=== PATIENT | male | born 1950 | race Caucasian/White ===

== ENCOUNTER 2018-06-11 20:44 | Inpatient (IN) | payer BC, MEDICARE ==
--- NOTE | 2018-06-11 21:31 | ED PDOC ---
HPI: General Adult Time Seen by Provider: 06/11/18 21:10 Chief Complaint (Nursing): Medical Clearance Chief Complaint (Provider): AMS History Per: Patient, EMS History/Exam Limitations: clinical condition Current Symptoms Are (Timing): Still Present Severity: Moderate Additional Complaint(s): 67yo male arrives via EMS after wellness check demonstrated unsuitable living conditions, with patient confused and unkempt. In ED patient notes dizziness, Denies falls, focal weakness or pain, denies etoh or drug abuse.. but otherwise poor historian. Per EMS multiple medication bottles around residence but not brought with patient. Patient denies overdose or ingestion. Past Medical History Reviewed: Historical Data, Nursing Documentation, Vital Signs, Unable To Obtain Vital Signs: Last Vital Signs Temp 97.9 F 06/11/18 20:48 Pulse 130 H 06/11/18 20:48 Resp 20 06/11/18 20:48 BP 122/88 06/11/18 20:48 Pulse Ox 96 06/11/18 20:48 - Family History Family History: States: Unknown Family Hx - Living Arrangements Living Arrangements: Alone - Allergies Allergies/Adverse Reactions: Allergies Allergy/AdvReac Type Severity Reaction Status Date / Time Unobtainable Allergy Verified 06/11/18 20:48 Review of Systems Review Of Systems: ROS cannot be obtained secondary to pt's inabilty to answer questions. Physical Exam - Reviewed Nursing Documentation Reviewed: Yes Vital Signs Reviewed: Yes - Physical Exam Appears: Positive for: Non-toxic (poor historian, speaks short sentences, delayed responses) Head Exam: Positive for: ATRAUMATIC, NORMAL INSPECTION, NORMOCEPHALIC Skin: Positive for: Normal Color, Warm, DRY Eye Exam: Positive for: EOMI, Normal appearance, PERRL ENT: Positive for: Other (+oral thrush) Neck: Positive for: Normal, Painless ROM Cardiovascular/Chest: Positive for: Regular Rate, Rhythm Respiratory: Positive for: CNT, Normal Breath Sounds Pulses-Radial (L): 2+ Pulses-Radial (R): 2+ Gastrointestinal/Abdominal: Positive for: Soft. Negative for: Tenderness Back: Positive for: Normal Inspection Extremity: Positive for: Normal ROM. Negative for: Tenderness, Deformity, Swelling Neurologic/Psych: Positive for: Alert, entertainment reporter II-XII (intact), Other (no dysarthria, speech fluent but confused, strength 5/5 symmetric). Negative for: Oriented, Aphasia, Facial Droop - Laboratory Results Result Diagrams: 06/13/18 10:42 06/13/18 10:42 - ECG ECG: Positive for: Interpreted By Me ECG Rhythm: Positive for: Sinus Tachycardia Rate: 106 O2 Sat by Pulse Oximetry: 96 Pulse Ox Interpretation: Normal Medical Decision Making Medical Decision Making: workup for AMS initiated in unkept patient who is poor historian. No prior visits in EMR. Denies family in area. CT brain, labs, IVF bolus. 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 VENTRICLES: There is generalized parenchymal atrophy noted as demonstrated by symmetrical dilatation of ventricles and sulci. ORBITS: The orbits are unremarkable. SINUSES AND MASTOIDS: The paranasal sinuses and mastoid air cells are clear. BONES: No fracture. SOFT TISSUES: Unremarkable. MISCELLANEOUS: No acute intracranial pathology. IMPRESSION: 1. There is generalized parenchymal atrophy noted as demonstrated by symmetrical dilatation of ventricles and sulci. 2. Chronic periventricular and subcortical microvascular disease is seen. 3. No acute intracranial pathology. 231 -- rapid HIV ordered given oral thrush --Blood reviewed revealing renal failure with hyperkalemia --Unclear if old, no priop labs to compare, patient poor historian, denies knowledge of prior kidney issues --Will admit to hospital for further workup. neprhology vice president of communications Dr Chay chacko, Dr Higgins covering awaiting call back. -- crisostomo ordered awaiting placement for r/o obstruction but no bladder abd distension or tenderness -- admit vice president of communications medicine Dr Glover +rapid HIV per lab verbal report Disposition - Clinical Impression Clinical Impression: Acute renal failure, HIV (human immunodeficiency virus infection) - Patient ED Disposition Is Patient to be Admitted: Yes Counseled Patient/Family Regarding: Studies Performed, Diagnosis - Disposition Disposition Time: 23:00 Condition: FAIR - Pt Status Changed To: Hospital Disposition Of: Inpatient - Admit Certification Admit to Inpatient:: After my assessment, the patient will require hospitalization for at least two midnights. This is because of the severity of symptoms shown, intensity of services needed, and/or the medical risk in this patient being treated as an outpatient. - POA Present On Arrival: None
[2018-06-11] MEDS ORDERED: Sodium Chloride 0.9% 1,000 ML IV STA ×2 (21:36→22:58)
[2018-06-11 22:13] LABS: BASO % 0.6 % (0.0-2.0); EOS % 0.2 % (0.0-4.0); HEMOGLOBIN 10.3 g/dL (12.0-18.0); LYMPH # 0.5 K/uL (1.0-4.3); LYMPH % 7.1 % (20.0-40.0); MEAN CELL VOLUME 81.2 fl (80.0-94.0); MEAN CORPUSCULAR HEMOGLOBIN 25.7 pg (27.0-31.0); MEAN CORPUSCULAR HGB CONC 31.7 g/dL (33.0-37.0); MEAN PLATELET VOLUME 9.9 fl (7.2-11.7); MONO # 0.6 K/uL (0.0-0.8); MONO % 8.8 % (0.0-10.0); NEUT % 83.3 % (50.0-75.0); PLATELET COUNT 274 K/uL (130-400); RED CELL DISTRIBUTION WIDTH 14.9 % (11.5-14.5); WHITE BLOOD COUNT 7.2 K/uL (4.8-10.8)
[2018-06-11 22:22] LABS: ALB/GLOB RATIO 0.9 (1.0-2.1); ALT/SGPT 30 U/L (21-72); AST/SGOT 41 U/L (17-59); BLOOD UREA NITROGEN 99 mg/dl (9-20); CALCIUM 10.6 mg/dL (8.4-10.2); GFR NON-AFRICAN AMERICAN 10
[2018-06-11 22:33] LABS: INR 1.1; PROTHROMBIN TIME 12.1 Seconds (9.8-13.1)
[2018-06-11 22:34] LABS: B-TYPE NATRIURETIC PEPTIDE 421 pg/ml (0-900)
[2018-06-11 22:36] LABS: PARTIAL THROMBOPLASTIN TIME 28.5 Seconds (25.6-37.1)
[2018-06-11] MEDS ORDERED: Dextrose 50% SYRINGE Inj (50 ml) IV PRN (22:54)
[2018-06-11] MEDS ORDERED: Dextrose 50% SYRINGE Inj (50 ml) IVP ONE (22:54)
[2018-06-11] MEDS ORDERED: Glucagon Recombinant 1 mg Inj IM PRN (22:54)
[2018-06-11] MEDS ORDERED: Calcium Gluconate 4.65 mEq/10 ml Inj IV ONE (22:54)
[2018-06-11] MEDS ORDERED: Insulin Regular 100 units/ml IVP ONE (22:54)
[2018-06-11] MEDS ORDERED: Sod Polystyrene Sulf 15 gm/60 ml Susp PO ONE (22:58)
[2018-06-11 23:21] LABS: LYMPHOCYTE 7 % (20-50); MONOCYTE 6 % (0-10); NEUTROPHIL 87 % (42-75); TOTAL CELLS COUNTED 100
[2018-06-11 23:22] LABS: ANISOCYTOSIS SLIGHT; HYPOCHROMIC SLIGHT; OVALOCYTES SLIGHT; PLATELET ESTIMATE NORMAL (NORMAL)
[2018-06-11] MEDS ORDERED: Dextrose 50% SYRINGE Inj (50 ml) ONE (23:23)
[2018-06-12 03:55] LABS: SQUAMOUS EPITHIAL 1 /hpf (0-5); URINE BILIRUBIN NEGATIVE (NEGATIVE); URINE BLOOD SMALL (NEGATIVE); URINE CLARITY SLIGHTY-CLOUDY (Clear); URINE COLOR YELLOW (YELLOW); URINE GLUCOSE (UA) NEG (NEGATIVE); URINE LEUKOCYTE ESTERASE NEG Leu/uL (Negative); URINE PROTEIN NEGATIVE (NEGATIVE); URINE UROBILINOGEN 0.2-1.0 mg/dL (0.2-1.0)
[2018-06-12 04:07] LABS: BARBITURATES, UR NEGATIVE (NEGATIVE); BENZODIAZEPINES, UR NEGATIVE (NEGATIVE); OPIATES, UR NEGATIVE (NEGATIVE); PHENCYCLIDINE, UR NEGATIVE (NEGATIVE)
[2018-06-12 06:56] LABS: HEMOGLOBIN 9.5 g/dL (12.0-18.0); MEAN CELL VOLUME 80.1 fl (80.0-94.0); MEAN CORPUSCULAR HEMOGLOBIN 25.8 pg (27.0-31.0); MEAN CORPUSCULAR HGB CONC 32.2 g/dL (33.0-37.0); RBC 3.69 Mil/uL (4.40-5.90); RED CELL DISTRIBUTION WIDTH 14.8 % (11.5-14.5); WHITE BLOOD COUNT 6.5 K/uL (4.8-10.8)
[2018-06-12 07:10] LABS: ALB/GLOB RATIO 0.9 (1.0-2.1); ALBUMIN 3.4 g/dL (3.5-5.0); CALCIUM 10.1 mg/dL (8.4-10.2)
--- NOTE | 2018-06-12 08:38 | RAD ---
Date of service: 06/11/2018 HISTORY: SOB COMPARISON: No prior. FINDINGS: LUNGS: No active pulmonary disease. PLEURA: No significant pleural effusion identified, no pneumothorax apparent. Bilateral skin folds identified in the periphery of the mid to inferior lung cede[place]. CARDIOVASCULAR: No aortic atherosclerotic calcification present. Normal cardiac size. No pulmonary vascular congestion. OSSEOUS STRUCTURES: No significant abnormalities. VISUALIZED UPPER ABDOMEN: Normal. OTHER FINDINGS: None. IMPRESSION: No acute cardiopulmonary disease appreciated.
--- NOTE | 2018-06-12 10:15 | CT ---
Date of service: 06/11/2018 PROCEDURE: CT HEAD WITHOUT CONTRAST. HISTORY: AMS COMPARISON: None available. TECHNIQUE: Axial computed tomography images were obtained through the head/brain without intravenous contrast. Radiation dose: Total exam DLP = 1503.47 mGy-cm. This CT exam was performed using one or more of the following dose reduction techniques: Automated exposure control, adjustment of the mA and/or kV according to patient size, and/or use of iterative reconstruction technique. FINDINGS: HEMORRHAGE: No intracranial hemorrhage. BRAIN: Almazan-white matter differentiation is preserved. There is no mass, mass effect or abnormal extra-axial fluid collection. There is no territorial infarction. The midline sagittal structures are normal. VENTRICLES: There is moderate age-related global parenchymal volume loss and proportionate enlargement of the ventricles and cortical sulci. CALVARIUM: There is no calvarial fracture or extracranial soft tissue swelling. PARANASAL SINUSES: There is mild polypoid mucosal thickening in the right posterior ethmoid air cell. The remaining included paranasal sinuses are clear. MASTOID AIR CELLS: Predominantly clear. OTHER FINDINGS: None. IMPRESSION: No acute intracranial abnormality. Moderate global parenchymal volume loss. A preliminary report was provided by [employer] [facility]
--- NOTE | 2018-06-12 10:37 | CP.PCM.CON ---
History of Present Illness - History of Present Illness History of Present Illness: This patient who is 67 years of age male I was called to see him for abnormal kidney function. Patient in bed refusing to cooperate is not given any history very little if any. I cannot get more information than what I got from the emergency room and as he came to the emergency room complaining of weakness dizziness but no fall and he was found to have abnormal kidney function we do not know what medication he has been taken and he was discovered that he has HIV positive now in the hospital. I do not know whether he has any previous chronic kidney disease or kidney disease or any other medical problem that we know of at at this point Review of Systems - Review of Systems Systems not reviewed;Unavailable: Altered Mental Status, Uncooperative - Constitutional Constitutional: Anorexia, Night Sweats. absent: Chills - EENT Eyes: absent: Exophthalmos Nose/Mouth/Throat: absent: Epistaxis - Cardiovascular Cardiovascular: absent: Acrocyanosis, Chest Pain, Dyspnea, Edema - Respiratory Respiratory: absent: Cough, Hemoptysis - Gastrointestinal Gastrointestinal: absent: Abdominal Pain, Coffee Ground Emesis - Genitourinary Genitourinary: Nocturia - Musculoskeletal Musculoskeletal: As Per HPI, Abnormal Gait, Muscle Weakness - Neurological Neurological: Confusion, Lack of Coordination. absent: Convulsions - Psychiatric Psychiatric: As Per HPI - Endocrine Endocrine: Fatigue - Hematologic/Lymphatic Hematologic: absent: Easy Bleeding Past Patient History - Past Social History Smoking Status: Never Smoked - HEMATOLOGICAL/ONCOLOGICAL Hx Blood Disorders: Yes - MUSCULOSKELETAL/RHEUMATOLOGICAL Hx Falls: No - PSYCHIATRIC Hx Substance Use: No Meds Allergies/Adverse Reactions: Allergies Allergy/AdvReac Type Severity Reaction Status Date / Time Unobtainable Allergy Verified 06/11/18 20:48 - Medications Medications: Current Medications Dextrose (Dextrose 50% Inj) 0 ml IV STAT PRN; Protocol PRN Reason: Hypoglycemia Protocol Dextrose (Glutose 15) 0 gm PO ONCE PRN; Protocol PRN Reason: Hypoglycemia Protocol Glucagon (Glucagen Diagnostic Kit) 0 mg IM STAT PRN; Protocol PRN Reason: Hypoglycemia Protocol Physical Exam - Constitutional Appears: No Acute Distress - Eye Exam Eye Exam: Conjunctival injection - ENT Exam ENT Exam: Mucous Membranes Dry - Respiratory Exam Respiratory Exam: NORMAL BREATHING PATTERN. absent: Chest Wall Tenderness, Rales, Rhonchi - Cardiovascular Exam Cardiovascular Exam: absent: Gallop, JVD, Rubs - GI/Abdominal Exam GI & Abdominal Exam: Normal Bowel Sounds. absent: Guarding - Extremities Exam Extremities exam: Negative for: calf tenderness - Back Exam Back exam: absent: CVA tenderness (L), CVA tenderness (R) - Neurological Exam Neurological exam: Altered - Psychiatric Exam Psychiatric exam: Flat Affect Results - Vital Signs Recent Vital Signs: Last Vital Signs Temp 98.4 F 06/12/18 08:01 Pulse 104 H 06/12/18 08:01 Resp 18 06/12/18 08:01 BP 96/57 L 06/12/18 08:01 Pulse Ox 93 L 06/12/18 08:01 - Labs Result Diagrams: 06/12/18 06:40 06/12/18 06:40 Labs: Laboratory Results - last 24 hr 06/11/18 06/11/18 06/11/18 21:32 22:01 22:01 WBC 7.2 RBC 4.00 L Hgb 10.3 L Hct 32.5 L MCV 81.2 MCH 25.7 L MCHC 31.7 L RDW 14.9 H Plt Count 274 MPV 9.9 Neut % (Auto) 83.3 H Lymph % (Auto) 7.1 L [place] % (Auto) 8.8 Eos % (Auto) 0.2 Baso % (Auto) 0.6 Neut # (Auto) 6.0 Lymph # (Auto) 0.5 L [place] # (Auto) 0.6 Eos # (Auto) 0.0 Baso # (Auto) 0.0 Neutrophils % (Manual) 87 H Lymphocytes % (Manual) 7 L Monocytes % (Manual) 6 Platelet Estimate Normal Hypochromasia (manual) Slight Anisocytosis (manual) Slight Ovalocytes Slight PT INR APTT Sodium 140 Potassium 6.0 H Chloride 101 Carbon Dioxide 17 L Anion Gap 28 H BUN 99 H Creatinine 5.7 H Est GFR ( Amer) 12 Est GFR (Non-Af Amer) 10 POC Glucose (mg/dL) 96 Random Glucose 120 H Calcium 10.6 H Phosphorus 7.9 H Magnesium 2.3 Total Bilirubin 0.8 AST 41 ALT 30 Alkaline Phosphatase 150 H Total Creatine Kinase 69 Troponin I 0.0190 NT-Pro-B Natriuret Pep 421 Total Protein 8.5 H Albumin 4.0 Globulin 4.5 H Albumin/Globulin Ratio 0.9 L Triglycerides Cholesterol LDL Cholesterol Direct HDL Cholesterol Thyroxine (T4) TSH 3rd Generation Urine Color Urine Clarity Urine pH Ur Specific [place] Urine Protein Urine Glucose (UA) Urine Ketones Urine Blood Urine Nitrate Urine Bilirubin Urine Urobilinogen Ur Leukocyte Esterase Urine RBC (Auto) Urine Microscopic WBC Ur Squamous Epith Cells Hyaline Casts Urine Opiates Screen Urine Methadone Screen Ur Barbiturates Screen Ur Phencyclidine Scrn Ur Amphetamines Screen U Benzodiazepines Scrn U Oth Cocaine Metabols U Cannabinoids Screen Alcohol, Quantitative < 10 HIV-1 Ab Rapid Screen 06/11/18 06/12/18 06/12/18 22:01 00:11 00:34 WBC RBC Hgb Hct MCV MCH MCHC RDW Plt Count MPV Neut % (Auto) Lymph % (Auto) [place] % (Auto) Eos % (Auto) Baso % (Auto) Neut # (Auto) Lymph # (Auto) [place] # (Auto) Eos # (Auto) Baso # (Auto) Neutrophils % (Manual) Lymphocytes % (Manual) Monocytes % (Manual) Platelet Estimate Hypochromasia (manual) Anisocytosis (manual) Ovalocytes PT 12.1 INR 1.1 APTT 28.5 Sodium Potassium Chloride Carbon Dioxide Anion Gap BUN Creatinine Est GFR ( Amer) Est GFR (Non-Af Amer) POC Glucose (mg/dL) 161 H Random Glucose Calcium Phosphorus Magnesium Total Bilirubin AST ALT Alkaline Phosphatase Total Creatine Kinase Troponin I NT-Pro-B Natriuret Pep Total Protein Albumin Globulin Albumin/Globulin Ratio Triglycerides Cholesterol LDL Cholesterol Direct HDL Cholesterol Thyroxine (T4) TSH 3rd Generation Urine Color Urine Clarity Urine pH Ur Specific [place] Urine Protein Urine Glucose (UA) Urine Ketones Urine Blood Urine Nitrate Urine Bilirubin Urine Urobilinogen Ur Leukocyte Esterase Urine RBC (Auto) Urine Microscopic WBC Ur Squamous Epith Cells Hyaline Casts Urine Opiates Screen Urine Methadone Screen Ur Barbiturates Screen Ur Phencyclidine Scrn Ur Amphetamines Screen U Benzodiazepines Scrn U Oth Cocaine Metabols U Cannabinoids Screen Alcohol, Quantitative HIV-1 Ab Rapid Screen Reactive H 06/12/18 06/12/18 06/12/18 03:41 03:41 05:31 WBC RBC Hgb Hct MCV MCH MCHC RDW Plt Count MPV Neut % (Auto) Lymph % (Auto) [place] % (Auto) Eos % (Auto) Baso % (Auto) Neut # (Auto) Lymph # (Auto) [place] # (Auto) Eos # (Auto) Baso # (Auto) Neutrophils % (Manual) Lymphocytes % (Manual) Monocytes % (Manual) Platelet Estimate Hypochromasia (manual) Anisocytosis (manual) Ovalocytes PT INR APTT Sodium Potassium Chloride Carbon Dioxide Anion Gap BUN Creatinine Est GFR ( Amer) Est GFR (Non-Af Amer) POC Glucose (mg/dL) 131 H Random Glucose Calcium Phosphorus Magnesium Total Bilirubin AST ALT Alkaline Phosphatase Total Creatine Kinase Troponin I NT-Pro-B Natriuret Pep Total Protein Albumin Globulin Albumin/Globulin Ratio Triglycerides Cholesterol LDL Cholesterol Direct HDL Cholesterol Thyroxine (T4) TSH 3rd Generation Urine Color Yellow Urine Clarity Slighty-cloudy Urine pH 5.0 Ur Specific [place] 1.013 Urine Protein Negative Urine Glucose (UA) Neg Urine Ketones Negative Urine Blood Small Urine Nitrate Negative Urine Bilirubin Negative Urine Urobilinogen 0.2-1.0 Ur Leukocyte Esterase Neg Urine RBC (Auto) 1 Urine Microscopic WBC 2 Ur Squamous Epith Cells 1 Hyaline Casts 11-20 H Urine Opiates Screen Negative Urine Methadone Screen Negative Ur Barbiturates Screen Negative Ur Phencyclidine Scrn Negative Ur Amphetamines Screen Negative U Benzodiazepines Scrn Negative U Oth Cocaine Metabols Negative U Cannabinoids Screen Negative Alcohol, Quantitative HIV-1 Ab Rapid Screen 06/12/18 06/12/18 06:40 06:40 WBC 6.5 RBC 3.69 L Hgb 9.5 L Hct 29.5 L MCV 80.1 MCH 25.8 L MCHC 32.2 L RDW 14.8 H Plt Count 255 MPV Neut % (Auto) Lymph % (Auto) [place] % (Auto) Eos % (Auto) Baso % (Auto) Neut # (Auto) Lymph # (Auto) [place] # (Auto) Eos # (Auto) Baso # (Auto) Neutrophils % (Manual) Lymphocytes % (Manual) Monocytes % (Manual) Platelet Estimate Hypochromasia (manual) Anisocytosis (manual) Ovalocytes PT INR APTT Sodium 140 Potassium 5.3 H Chloride 105 Carbon Dioxide 19 L Anion Gap 21 H BUN 96 H Creatinine 5.0 H Est GFR ( Amer) 14 Est GFR (Non-Af Amer) 12 POC Glucose (mg/dL) Random Glucose 123 H Calcium 10.1 Phosphorus 6.2 H Magnesium Total Bilirubin 0.7 AST 42 ALT 24 Alkaline Phosphatase 144 H Total Creatine Kinase Troponin I NT-Pro-B Natriuret Pep Total Protein 7.4 Albumin 3.4 L Globulin 4.0 H Albumin/Globulin Ratio 0.9 L Triglycerides 175 H Cholesterol 175 LDL Cholesterol Direct 78 HDL Cholesterol 31 Thyroxine (T4) 6.17 TSH 3rd Generation 0.48 Urine Color Urine Clarity Urine pH Ur Specific [place] Urine Protein Urine Glucose (UA) Urine Ketones Urine Blood Urine Nitrate Urine Bilirubin Urine Urobilinogen Ur Leukocyte Esterase Urine RBC (Auto) Urine Microscopic WBC Ur Squamous Epith Cells Hyaline Casts Urine Opiates Screen Urine Methadone Screen Ur Barbiturates Screen Ur Phencyclidine Scrn Ur Amphetamines Screen U Benzodiazepines Scrn U Oth Cocaine Metabols U Cannabinoids Screen Alcohol, Quantitative HIV-1 Ab Rapid Screen Assessment & Plan (1) Acute renal failure Assessment and Plan: Differential diagnosis at this point Acute kidney injury/acute renal failure etiology not clear HIV Patient appears to be malnourished failure to thrive Recommendation IV fluid Serum phosphorus Serum PTH Spot urine for protein to creatinine ratio Ultrasound of the kidney We need more information Patient need kidney biopsy Status: Acute (2) HIV (human immunodeficiency virus infection) Status: Acute
--- NOTE | 2018-06-12 12:34 | CARD ---
APPROVED REPORT Date of service: 06/11/2018 EKG Measurement Heart [id number] <Conclusion> Sinus tachycardia Otherwise normal ECG
[2018-06-12 12:42] LABS: IRON 13 ug/dL (49-181)
[2018-06-12] MEDS ORDERED: Sodium Chloride 0.9% 1,000 ML IV SCH ×2 (12:45→18:45)
[2018-06-12 12:52] LABS: % IRON SATURATION 6 % (20-55); TOTAL IRON BINDING CAPACITY 206 ug/dL (250-450)
--- NOTE | 2018-06-12 14:32 | CP.PCM.HP ---
History of Present Illness - History of Present Illness History of Present Illness: CC: AMS. 67 y/o M, brought to ER [facility], on , to be evaluated for AMS on DOA with no changes, associated to weakness/dizziness, unkempt, as pe EMS, found with unsuitable living, multiple medications bottles around residence but not brought with Pt. Worsening symptoms: Cachexia, not eating for days, on evaluation, found with abnormal kidney function., positive for HIV, nocturia. Aggravated factor: Poor historian, Unknown PMHx or home medications. Not in compliance with all his meds. No: Fever, chills, n/v/d, abdominal pain, fall, CP, palpitations, SOB, cough, etoh or drugs, recent travel out of [facility]. EKG: Sinus Tachycardia. Head CT: No acute intracranial abnormality. CXR: No acute cardiopulmonary disease. Present on Admission - Present on Admission Any Indicators Present on Admission: No Review of Systems - Review of Systems Systems not reviewed;Unavailable: Acuity of Condition, Altered Mental Status Past Patient History - Past Medical History & Family History Pertinent Family History: Unknown - Past Social History Smoking Status: Never Smoked Alcohol: None (Pt deied) Drugs: Denies (Pt denied.) Home Situation {Lives}: Alone - HEMATOLOGICAL/ONCOLOGICAL Hx Blood Disorders: Yes Hx Human Immunodeficiency Virus (HIV): Yes - MUSCULOSKELETAL/RHEUMATOLOGICAL Hx Falls: No - PSYCHIATRIC Hx Substance Use: No Meds Allergies/Adverse Reactions: Allergies Allergy/AdvReac Type Severity Reaction Status Date / Time Unobtainable Allergy Verified 06/11/18 20:48 Physical Exam - Constitutional Appears: Chronically Ill, Other (Anorexia) - Head Exam Head Exam: NORMAL INSPECTION - Eye Exam Eye Exam: Conjunctival injection - ENT Exam Additional comments: Oral thrush - Neck Exam Neck exam: Positive for: Normal Inspection - Respiratory Exam Respiratory Exam: NORMAL BREATHING PATTERN - Cardiovascular Exam Cardiovascular Exam: Tachycardia - GI/Abdominal Exam GI & Abdominal Exam: Normal Bowel Sounds, Soft - Extremities Exam Extremities exam: Positive for: normal inspection - Neurological Exam Neurological exam: CN II-XII Intact Additional comments: Ox1, awake, confused, forgetful. - Psychiatric Exam Psychiatric exam: Flat Affect - Skin Skin Exam: Warm Results - Vital Signs Recent Vital Signs: Last Vital Signs Temp 97.8 F 06/12/18 12:48 Pulse 122 H 06/12/18 12:48 Resp 18 06/12/18 12:48 BP 91/57 L 06/12/18 12:48 Pulse Ox 93 L 06/12/18 12:48 danie Blandon - Labs Result Diagrams: 06/12/18 06:40 06/12/18 06:40 Labs: Laboratory Results - last 24 hr 06/11/18 06/11/18 06/11/18 21:32 22:01 22:01 WBC 7.2 RBC 4.00 L Hgb 10.3 L Hct 32.5 L MCV 81.2 MCH 25.7 L MCHC 31.7 L RDW 14.9 H Plt Count 274 MPV 9.9 Neut % (Auto) 83.3 H Lymph % (Auto) 7.1 L [place] % (Auto) 8.8 Eos % (Auto) 0.2 Baso % (Auto) 0.6 Neut # (Auto) 6.0 Lymph # (Auto) 0.5 L [place] # (Auto) 0.6 Eos # (Auto) 0.0 Baso # (Auto) 0.0 Neutrophils % (Manual) 87 H Lymphocytes % (Manual) 7 L Monocytes % (Manual) 6 Platelet Estimate Normal Hypochromasia (manual) Slight Anisocytosis (manual) Slight Ovalocytes Slight PT INR APTT Sodium 140 Potassium 6.0 H Chloride 101 Carbon Dioxide 17 L Anion Gap 28 H BUN 99 H Creatinine 5.7 H Est GFR ( Amer) 12 Est GFR (Non-Af Amer) 10 POC Glucose (mg/dL) 96 Random Glucose 120 H Calcium 10.6 H Phosphorus 7.9 H Magnesium 2.3 Iron TIBC % Saturation Total Bilirubin 0.8 AST 41 ALT 30 Alkaline Phosphatase 150 H Total Creatine Kinase 69 Troponin I 0.0190 NT-Pro-B Natriuret Pep 421 Total Protein 8.5 H Albumin 4.0 Globulin 4.5 H Albumin/Globulin Ratio 0.9 L Triglycerides Cholesterol LDL Cholesterol Direct HDL Cholesterol Vitamin B12 Thyroxine (T4) TSH 3rd Generation Urine Color Urine Clarity Urine pH Ur Specific [place] Urine Protein Urine Glucose (UA) Urine Ketones Urine Blood Urine Nitrate Urine Bilirubin Urine Urobilinogen Ur Leukocyte Esterase Urine RBC (Auto) Urine Microscopic WBC Ur Squamous Epith Cells Hyaline Casts Urine Opiates Screen Urine Methadone Screen Ur Barbiturates Screen Ur Phencyclidine Scrn Ur Amphetamines Screen U Benzodiazepines Scrn U Oth Cocaine Metabols U Cannabinoids Screen Alcohol, Quantitative < 10 HIV-1 Ab Rapid Screen 06/11/18 06/12/18 06/12/18 22:01 00:11 00:34 WBC RBC Hgb Hct MCV MCH MCHC RDW Plt Count MPV Neut % (Auto) Lymph % (Auto) [place] % (Auto) Eos % (Auto) Baso % (Auto) Neut # (Auto) Lymph # (Auto) [place] # (Auto) Eos # (Auto) Baso # (Auto) Neutrophils % (Manual) Lymphocytes % (Manual) Monocytes % (Manual) Platelet Estimate Hypochromasia (manual) Anisocytosis (manual) Ovalocytes PT 12.1 INR 1.1 APTT 28.5 Sodium Potassium Chloride Carbon Dioxide Anion Gap BUN Creatinine Est GFR ( Amer) Est GFR (Non-Af Amer) POC Glucose (mg/dL) 161 H Random Glucose Calcium Phosphorus Magnesium Iron TIBC % Saturation Total Bilirubin AST ALT Alkaline Phosphatase Total Creatine Kinase Troponin I NT-Pro-B Natriuret Pep Total Protein Albumin Globulin Albumin/Globulin Ratio Triglycerides Cholesterol LDL Cholesterol Direct HDL Cholesterol Vitamin B12 Thyroxine (T4) TSH 3rd Generation Urine Color Urine Clarity Urine pH Ur Specific [place] Urine Protein Urine Glucose (UA) Urine Ketones Urine Blood Urine Nitrate Urine Bilirubin Urine Urobilinogen Ur Leukocyte Esterase Urine RBC (Auto) Urine Microscopic WBC Ur Squamous Epith Cells Hyaline Casts Urine Opiates Screen Urine Methadone Screen Ur Barbiturates Screen Ur Phencyclidine Scrn Ur Amphetamines Screen U Benzodiazepines Scrn U Oth Cocaine Metabols U Cannabinoids Screen Alcohol, Quantitative HIV-1 Ab Rapid Screen Reactive H 06/12/18 06/12/18 06/12/18 03:41 03:41 05:31 WBC RBC Hgb Hct MCV MCH MCHC RDW Plt Count MPV Neut % (Auto) Lymph % (Auto) [place] % (Auto) Eos % (Auto) Baso % (Auto) Neut # (Auto) Lymph # (Auto) [place] # (Auto) Eos # (Auto) Baso # (Auto) Neutrophils % (Manual) Lymphocytes % (Manual) Monocytes % (Manual) Platelet Estimate Hypochromasia (manual) Anisocytosis (manual) Ovalocytes PT INR APTT Sodium Potassium Chloride Carbon Dioxide Anion Gap BUN Creatinine Est GFR ( Amer) Est GFR (Non-Af Amer) POC Glucose (mg/dL) 131 H Random Glucose Calcium Phosphorus Magnesium Iron TIBC % Saturation Total Bilirubin AST ALT Alkaline Phosphatase Total Creatine Kinase Troponin I NT-Pro-B Natriuret Pep Total Protein Albumin Globulin Albumin/Globulin Ratio Triglycerides Cholesterol LDL Cholesterol Direct HDL Cholesterol Vitamin B12 Thyroxine (T4) TSH 3rd Generation Urine Color Yellow Urine Clarity Slighty-cloudy Urine pH 5.0 Ur Specific [place] 1.013 Urine Protein Negative Urine Glucose (UA) Neg Urine Ketones Negative Urine Blood Small Urine Nitrate Negative Urine Bilirubin Negative Urine Urobilinogen 0.2-1.0 Ur Leukocyte Esterase Neg Urine RBC (Auto) 1 Urine Microscopic WBC 2 Ur Squamous Epith Cells 1 Hyaline Casts 11-20 H Urine Opiates Screen Negative Urine Methadone Screen Negative Ur Barbiturates Screen Negative Ur Phencyclidine Scrn Negative Ur Amphetamines Screen Negative U Benzodiazepines Scrn Negative U Oth Cocaine Metabols Negative U Cannabinoids Screen Negative Alcohol, Quantitative HIV-1 Ab Rapid Screen 06/12/18 06/12/18 06/12/18 06:40 06:40 12:19 WBC 6.5 RBC 3.69 L Hgb 9.5 L Hct 29.5 L MCV 80.1 MCH 25.8 L MCHC 32.2 L RDW 14.8 H Plt Count 255 MPV Neut % (Auto) Lymph % (Auto) [place] % (Auto) Eos % (Auto) Baso % (Auto) Neut # (Auto) Lymph # (Auto) [place] # (Auto) Eos # (Auto) Baso # (Auto) Neutrophils % (Manual) Lymphocytes % (Manual) Monocytes % (Manual) Platelet Estimate Hypochromasia (manual) Anisocytosis (manual) Ovalocytes PT INR APTT Sodium 140 Potassium 5.3 H Chloride 105 Carbon Dioxide 19 L Anion Gap 21 H BUN 96 H Creatinine 5.0 H Est GFR ( Amer) 14 Est GFR (Non-Af Amer) 12 POC Glucose (mg/dL) Random Glucose 123 H Calcium 10.1 Phosphorus 6.2 H Magnesium Iron 13 L TIBC 206 L % Saturation 6 L Total Bilirubin 0.7 AST 42 ALT 24 Alkaline Phosphatase 144 H Total Creatine Kinase Troponin I NT-Pro-B Natriuret Pep Total Protein 7.4 Albumin 3.4 L Globulin 4.0 H Albumin/Globulin Ratio 0.9 L Triglycerides 175 H Cholesterol 175 LDL Cholesterol Direct 78 HDL Cholesterol 31 Vitamin B12 Thyroxine (T4) 6.17 TSH 3rd Generation 0.48 Urine Color Urine Clarity Urine pH Ur Specific [place] Urine Protein Urine Glucose (UA) Urine Ketones Urine Blood Urine Nitrate Urine Bilirubin Urine Urobilinogen Ur Leukocyte Esterase Urine RBC (Auto) Urine Microscopic WBC Ur Squamous Epith Cells Hyaline Casts Urine Opiates Screen Urine Methadone Screen Ur Barbiturates Screen Ur Phencyclidine Scrn Ur Amphetamines Screen U Benzodiazepines Scrn U Oth Cocaine Metabols U Cannabinoids Screen Alcohol, Quantitative HIV-1 Ab Rapid Screen 06/12/18 12:19 WBC RBC Hgb Hct MCV MCH MCHC RDW Plt Count MPV Neut % (Auto) Lymph % (Auto) [place] % (Auto) Eos % (Auto) Baso % (Auto) Neut # (Auto) Lymph # (Auto) [place] # (Auto) Eos # (Auto) Baso # (Auto) Neutrophils % (Manual) Lymphocytes % (Manual) Monocytes % (Manual) Platelet Estimate Hypochromasia (manual) Anisocytosis (manual) Ovalocytes PT INR APTT Sodium Potassium Chloride Carbon Dioxide Anion Gap BUN Creatinine Est GFR ( Amer) Est GFR (Non-Af Amer) POC Glucose (mg/dL) Random Glucose Calcium Phosphorus Magnesium Iron TIBC % Saturation Total Bilirubin AST ALT Alkaline Phosphatase Total Creatine Kinase Troponin I NT-Pro-B Natriuret Pep Total Protein Albumin Globulin Albumin/Globulin Ratio Triglycerides Cholesterol LDL Cholesterol Direct HDL Cholesterol Vitamin B12 > 1000 H Thyroxine (T4) TSH 3rd Generation Urine Color Urine Clarity Urine pH Ur Specific [place] Urine Protein Urine Glucose (UA) Urine Ketones Urine Blood Urine Nitrate Urine Bilirubin Urine Urobilinogen Ur Leukocyte Esterase Urine RBC (Auto) Urine Microscopic WBC Ur Squamous Epith Cells Hyaline Casts Urine Opiates Screen Urine Methadone Screen Ur Barbiturates Screen Ur Phencyclidine Scrn Ur Amphetamines Screen U Benzodiazepines Scrn U Oth Cocaine Metabols U Cannabinoids Screen Alcohol, Quantitative HIV-1 Ab Rapid Screen reviewed J.P. - EKG Data EKG comments: reviewed J.P. - Imaging and Cardiology Chest x-ray Status: Report reviewed by me (Barber) CT scan - head Status: Report reviewed by me (Barber) Assessment & Plan (1) Altered mental status Status: Acute Priority: High (2) HIV (human immunodeficiency virus infection) Status: Acute Priority: High (3) Acute renal failure Status: Acute Priority: High (4) Diabetes mellitus Status: Acute Priority: High - Assessment and Plan (Free Text) Plan: Head CT no Acute intracraneal abnormalities, mod volume loss, F/U Echo, Brain MRI, Renal U-S, Blood, Stool and U C-S, Occult blood stool, Ova & parasite,Cd4, viral load, continue dextrose, Glucagon, Lovenox, Morphine, Acyclovir and rest of Tx, Nephrology consult appreciated, f/u ID and Neurology consult. - Date & Time Date: 06/12/18 Time: 11:30
[2018-06-12] MEDS: Morphine 4 MG/ML VIAL IVP PRN (15:38)
[2018-06-12] MEDS: Enoxaparin 30 mg Syringe SC SCH (15:38)
[2018-06-12] MEDS: Acyclovir 500 MG in Sodium Chloride 0.9% 100 ML IVPB SCH (15:38)
[2018-06-12] MEDS: Pantoprazole 40 mg EC Tab PO SCH (15:38)
[2018-06-12] MEDS: Sodium Chloride 0.9% 1,000 ML IV SCH (19:00)
--- NOTE | 2018-06-12 20:37 | CARD ---
APPROVED REPORT Date of service: 06/12/2018 EXAM: Two-dimensional and M-mode echocardiogram with Doppler and color Doppler. Other Information Quality : AverageRhythm : Tachycardia Technically limited study due to Poor parasternal window INDICATION Abnormal EKG/Arrhythmia 2D DIMENSIONS IVSd0.67 (0.7-1.1cm)LVDd3.14 (3.9-5.9cm) LVOT Diameter1.65 (1.8-2.4cm)PWd0.78 (0.7-1.1cm) IVSs0.99 (0.8-1.2cm)LVDs2.13 (2.5-4.0cm) FS (%) 32.1 %PWs0.87 (0.8-1.2cm) M-Mode DIMENSIONS Left Atrium (MM)3.86 (2.5-4.0cm)IVSd1.30 (0.7-1.1cm) Aortic Root2.95 (2.2-3.7cm)LVDd2.90 (4.0-5.6cm) Aortic Cusp Exc.1.57 (1.5-2.0cm)PWd1.08 (0.7-1.1cm) IVSs1.30 cmFS (%) 38 % LVDs1.79 (2.0-3.8cm)PWs1.46 cm Aortic Valve AoV Peak Cedttroh238.7cm/sAoV VTI11.0cmAO Peak GR.4mmHg LVOT Peak Socwbfeg69.1cm/sLVOT VTI11.62cmAO Mean GR.2mmHg JOSE (VMAX)1.73ee2ENP (VTI)1.43cm2 Mitral Valve MV E Lyeqpgsg20.3cm/sMV DECEL [id number] A Irgjltwc67.0cm/s MV BMT89qbD/A ratio0.8MVA (PHT)2.26cm2 TDI Lateral E' Peak V11.05cm/sMedial E' Peak V7.74cm/sE/Lateral E'4.6 E/Medial E'6.5 LEFT VENTRICLE The left ventricle is normal size. There is normal left ventricular wall thickness. The left ventricular systolic function is normal. The estimated ejection fraction is 55-60% No regional wall motion abnormalities noted.. Transmitral Doppler flow pattern is Grade I-abnormal relaxation pattern. No left ventricle thrombus noted on this study. There is no ventricular septal defect visualized. There is no left ventricular aneurysm. There is no mass noted in the left ventricle. RIGHT VENTRICLE The right ventricle is normal size. There is possible mild right ventricular wall hypertrophy The right ventricular systolic function is normal. ATRIA The left atrium is borderline dilated. The right atrium size is normal. The interatrial septum is intact with no evidence for an atrial septal defect. AORTIC VALVE The aortic valve is normal in structure. No aortic regurgitation is present. There is no aortic valvular stenosis. There is no aortic valvular vegetation. MITRAL VALVE The mitral valve is normal in structure. There is no evidence of mitral valve prolapse. There is no mitral valve stenosis. There is trace mitral valve regurgitation noted. TRICUSPID VALVE The tricuspid valve is normal in structure. There is no tricuspid valve regurgitation noted. There is no tricuspid valve prolapse or vegetation. There is no tricuspid valve stenosis. PULMONIC VALVE The pulmonary valve is normal in structure. There is no pulmonic valvular regurgitation. There is no pulmonic valvular stenosis. GREAT VESSELS The aortic root is normal in size. The ascending aorta is normal in size. The pulmonary artery is normal. The IVC is normal in size and collapses >50% with inspiration. PERICARDIAL EFFUSION There is no pericardial effusion. There is no pleural effusion. <Conclusion> The estimated ejection fraction is 55-60% Transmitral Doppler flow pattern is Grade I-abnormal relaxation pattern. The left atrium is borderline dilated. There is trace mitral valve regurgitation noted. There is no tricuspid valve regurgitation noted.
--- NOTE | 2018-06-12 22:09 | PCM.RRT ---
WORLD HISTORY TEACHER Nurse Assessment - Situation Location: [address] [place] [address] Room Number: [id number] WORLD HISTORY TEACHER Reason for Call: Hypotension WORLD HISTORY TEACHER Called By: RN - IV IV Inserted during WORLD HISTORY TEACHER?: No - Respiratory Oxygen Delivery Method: Nasal Cannula Received Nebulizer Treatments: No Was the Patient Ventilated with Bag/Mask 100% O2?: No Secretions Suctioned?: No Was the Patient Intubated?: No Was the Patient Placed on a Ventilator?: No - Medication Medications Administered During WORLD HISTORY TEACHER: NS 1L IV x1 - Diagnostic Test Ordered EKG: No Chest X-Ray: No CT Scan: No CPR started during WORLD HISTORY TEACHER?: No - Vital Signs Vital Signs: Rapid Response Vital Sign Blood Pressure 84/56 Pulse Rate 88 Respiratory Rate 20 Oxygen Saturation 95 - Time WORLD HISTORY TEACHER Ended Time WORLD HISTORY TEACHER Ended: 18:53 - Vital Signs at end of WORLD HISTORY TEACHER Vital Signs at end of WORLD HISTORY TEACHER: Rapid Response End Vital Sign Blood Pressure 96/59 Pulse Rate 84 Respiratory Rate 18 - Recommendations WORLD HISTORY TEACHER Level of Care Recommendations: Remain in current setting I.Reason for WORLD HISTORY TEACHER - A) Acute Change in Patient: (Select all that apply): Staff member or family is worried about patient Subjective: Time of WORLD HISTORY TEACHER: 6:31 pm Time of arrival: 6:32pm WORLD HISTORY TEACHER called by RN Reason for WORLD HISTORY TEACHER: nurse concerned about pt, hypotension Initial WORLD HISTORY TEACHER Vitals: Blood Pressure 84/56 Pulse Rate 88 Respiratory Rate 20 Oxygen Saturation 95 WORLD HISTORY TEACHER was called by nurse for hypotensive episode (BP 72/44) for Toya Henry, a 67-year-old male with PMH of HIV BIBA for AMS on day 1 of admission. Pt is a poor historian however he remained awake and responsive throughout WORLD HISTORY TEACHER. Denied any symptoms, repeatedly stated he "felt fine." He was given IVF; NS bolus and maintenance at 150 mls/hour. BP improved 95/66. All chart data reviewed - CT shows diffuse atrophy, chronic. CXR unremarkable. BUN/Cr 96/5.0. Potassium 5.3. Vital history indicated BP had been low for majority of admission and was not an acute change. PE: Gen: resting in bed in no acute distress Neuro: Awake, alert, responsive yet confused CV: RRR Resp: No resp distress Ext: no edema, no extremity tenderness to palpation End WORLD HISTORY TEACHER vitals: Blood Pressure 96/59 Pulse Rate 84 Respiratory Rate 18 WORLD HISTORY TEACHER Team: Dr Yin, Dr Dalton, Dr Land - Neurological Status (Select all that apply): Confused - Constitutional Appears: No Acute Distress, Older Than Stated Age, Cachectic - Head Head Exam: NORMAL INSPECTION - Respiratory Exam Respiratory Exam: absent: Respiratory Distress - Cardiovascular Exam Cardiovascular Exam: +S1, +S2 - GI/Abdominal Exam GI & Abdominal Exam: Soft. absent: Tenderness - Neurological Exam Neurological Exam: Alert, Altered, Awake - Extremities Exam Extremities Exam: Normal Inspection
--- NOTE | 2018-06-13 00:04 | CP.PCM.CON ---
History of Present Illness - History of Present Illness History of Present Illness: Neurology consult called by Dr. Glover . Mr. Pittman is a 67 yr old male with HIV of unknown duration, who is admitted for evaluation of change in mental status. Chart reviewed and the ER stated that he was dizzy, unkempt, with no history of urinary incontinence, who was not eating for days. In the ER, he was found to have oral thrush and was found to have HIV positive, and renal dysfunction. It is unknown what his baseline is, and he has not had any seizures. ROS: not obtainable due to mental status, and patients inability to communicate. No: Fever, chills, n/v/d, abdominal pain, fall, CP, palpitations, SOB, cough, etoh or drugs, recent travel out of [facility]. EKG: Sinus Tachycardia. Head CT: No acute intracranial abnormality. CXR: No acute cardiopulmonary disease. ON exam: AAOX1. PERRL. CN 2-12 normal. Motor : strength 5/5 ul and ll bl. Sensory: not accurate Gait not tested. MMS: tangential but can name and repeat, and follow commands. He cannot do calcluations, cannot recall 3 items after one minute, cannot draw pentagons. Past Patient History - Past Social History Smoking Status: Never Smoked Alcohol: None (Pt deied) Drugs: Denies (Pt denied.) Home Situation {Lives}: Alone - HEMATOLOGICAL/ONCOLOGICAL Hx Blood Disorders: Yes Hx Human Immunodeficiency Virus (HIV): Yes - MUSCULOSKELETAL/RHEUMATOLOGICAL Hx Falls: No - PSYCHIATRIC Hx Substance Use: No Meds Allergies/Adverse Reactions: Allergies Allergy/AdvReac Type Severity Reaction Status Date / Time Unobtainable Allergy Verified 06/11/18 20:48 - Medications Medications: Current Medications Dextrose (Dextrose 50% Inj) 0 ml IV STAT PRN; Protocol PRN Reason: Hypoglycemia Protocol Dextrose (Glutose 15) 0 gm PO ONCE PRN; Protocol PRN Reason: Hypoglycemia Protocol Enoxaparin Sodium (Lovenox) 30 mg SC DAILY [facility]; Protocol Last Admin: 06/12/18 15:38 Dose: Not Given Glucagon (Glucagen Diagnostic Kit) 0 mg IM STAT PRN; Protocol PRN Reason: Hypoglycemia Protocol Dextrose/Sodium Chloride (Dextrose 5%-0.9% Ns 500 Ml) 1,000 mls @ 100 mls/hr IV .Q10H [facility] Stop: 06/13/18 14:44 Last Admin: 06/12/18 17:00 Dose: Not Given Acyclovir 500 mg/ Sodium (Chloride) 100 mls @ 100 mls/hr IVPB DAILY [facility]; Protocol Last Admin: 06/12/18 15:38 Dose: Not Given Sodium Chloride (Sodium Chloride 0.9%) 1,000 mls @ 999 mls/hr IV .Q1H1M [facility] Stop: 06/13/18 18:46 Last Admin: 06/12/18 18:50 Dose: Not Given Sodium Chloride (Sodium Chloride 0.9%) 1,000 mls @ 150 mls/hr IV .Q6H40M [facility] Stop: 06/13/18 18:47 Morphine Sulfate (Morphine) 2 mg IVP Q6 PRN PRN Reason: Pain, moderate (4-7) Last Admin: 06/12/18 15:38 Dose: 2 mg Pantoprazole Sodium (Protonix Ec Tab) 40 mg PO DAILY [facility] Last Admin: 06/12/18 15:38 Dose: Not Given Sevelamer HCl (Renagel) 1,600 mg PO TID [facility] Last Admin: 06/12/18 17:30 Dose: Not Given Results - Vital Signs Recent Vital Signs: Last Vital Signs Temp 97.8 F 06/12/18 20:17 Pulse 82 06/12/18 20:17 Resp 16 06/12/18 20:17 BP 90/56 L 06/12/18 20:17 Pulse Ox 98 06/12/18 20:17 - Labs Result Diagrams: 06/13/18 10:42 06/13/18 10:42 Labs: Laboratory Results - last 24 hr 06/12/18 06/12/18 06/12/18 00:11 00:34 03:41 WBC RBC Hgb Hct MCV MCH MCHC RDW Plt Count Sodium Potassium Chloride Carbon Dioxide Anion Gap BUN Creatinine Est GFR ( Amer) Est GFR (Non-Af Amer) POC Glucose (mg/dL) 161 H Random Glucose Calcium Phosphorus Iron TIBC % Saturation Ferritin Total Bilirubin AST ALT Alkaline Phosphatase Ammonia Total Protein Albumin Globulin Albumin/Globulin Ratio Triglycerides Cholesterol LDL Cholesterol Direct HDL Cholesterol Vitamin B12 Thyroxine (T4) TSH 3rd Generation Urine Color Urine Clarity Urine pH Ur Specific [place] Urine Protein Urine Glucose (UA) Urine Ketones Urine Blood Urine Nitrate Urine Bilirubin Urine Urobilinogen Ur Leukocyte Esterase Urine RBC (Auto) Urine Microscopic WBC Ur Squamous Epith Cells Hyaline Casts Urine Opiates Screen Negative Urine Methadone Screen Negative Ur Barbiturates Screen Negative Ur Phencyclidine Scrn Negative Ur Amphetamines Screen Negative U Benzodiazepines Scrn Negative U Oth Cocaine Metabols Negative U Cannabinoids Screen Negative C. difficile Ag & Toxin HIV-1 Ab Rapid Screen Reactive H 06/12/18 06/12/18 06/12/18 03:41 05:31 06:40 WBC 6.5 RBC 3.69 L Hgb 9.5 L Hct 29.5 L MCV 80.1 MCH 25.8 L MCHC 32.2 L RDW 14.8 H Plt Count 255 Sodium Potassium Chloride Carbon Dioxide Anion Gap BUN Creatinine Est GFR ( Amer) Est GFR (Non-Af Amer) POC Glucose (mg/dL) 131 H Random Glucose Calcium Phosphorus Iron TIBC % Saturation Ferritin Total Bilirubin AST ALT Alkaline Phosphatase Ammonia Total Protein Albumin Globulin Albumin/Globulin Ratio Triglycerides Cholesterol LDL Cholesterol Direct HDL Cholesterol Vitamin B12 Thyroxine (T4) TSH 3rd Generation Urine Color Yellow Urine Clarity Slighty-cloudy Urine pH 5.0 Ur Specific [place] 1.013 Urine Protein Negative Urine Glucose (UA) Neg Urine Ketones Negative Urine Blood Small Urine Nitrate Negative Urine Bilirubin Negative Urine Urobilinogen 0.2-1.0 Ur Leukocyte Esterase Neg Urine RBC (Auto) 1 Urine Microscopic WBC 2 Ur Squamous Epith Cells 1 Hyaline Casts 11-20 H Urine Opiates Screen Urine Methadone Screen Ur Barbiturates Screen Ur Phencyclidine Scrn Ur Amphetamines Screen U Benzodiazepines Scrn U Oth Cocaine Metabols U Cannabinoids Screen C. difficile Ag & Toxin HIV-1 Ab Rapid Screen 06/12/18 06/12/18 06/12/18 06:40 11:16 12:19 WBC RBC Hgb Hct MCV MCH MCHC RDW Plt Count Sodium 140 Potassium 5.3 H Chloride 105 Carbon Dioxide 19 L Anion Gap 21 H BUN 96 H Creatinine 5.0 H Est GFR ( Amer) 14 Est GFR (Non-Af Amer) 12 POC Glucose (mg/dL) 118 H Random Glucose 123 H Calcium 10.1 Phosphorus 6.2 H Iron 13 L TIBC 206 L % Saturation 6 L Ferritin Total Bilirubin 0.7 AST 42 ALT 24 Alkaline Phosphatase 144 H Ammonia Total Protein 7.4 Albumin 3.4 L Globulin 4.0 H Albumin/Globulin Ratio 0.9 L Triglycerides 175 H Cholesterol 175 LDL Cholesterol Direct 78 HDL Cholesterol 31 Vitamin B12 Thyroxine (T4) 6.17 TSH 3rd Generation 0.48 Urine Color Urine Clarity Urine pH Ur Specific [place] Urine Protein Urine Glucose (UA) Urine Ketones Urine Blood Urine Nitrate Urine Bilirubin Urine Urobilinogen Ur Leukocyte Esterase Urine RBC (Auto) Urine Microscopic WBC Ur Squamous Epith Cells Hyaline Casts Urine Opiates Screen Urine Methadone Screen Ur Barbiturates Screen Ur Phencyclidine Scrn Ur Amphetamines Screen U Benzodiazepines Scrn U Oth Cocaine Metabols U Cannabinoids Screen C. difficile Ag & Toxin HIV-1 Ab Rapid Screen 06/12/18 06/12/18 06/12/18 12:19 16:00 16:39 WBC RBC Hgb Hct MCV MCH MCHC RDW Plt Count Sodium Potassium Chloride Carbon Dioxide Anion Gap BUN Creatinine Est GFR ( Amer) Est GFR (Non-Af Amer) POC Glucose (mg/dL) 159 H Random Glucose Calcium Phosphorus Iron TIBC % Saturation Ferritin 1700.0 H Total Bilirubin AST ALT Alkaline Phosphatase Ammonia Total Protein Albumin Globulin Albumin/Globulin Ratio Triglycerides Cholesterol LDL Cholesterol Direct HDL Cholesterol Vitamin B12 > 1000 H Thyroxine (T4) TSH 3rd Generation Urine Color Urine Clarity Urine pH Ur Specific [place] Urine Protein Urine Glucose (UA) Urine Ketones Urine Blood Urine Nitrate Urine Bilirubin Urine Urobilinogen Ur Leukocyte Esterase Urine RBC (Auto) Urine Microscopic WBC Ur Squamous Epith Cells Hyaline Casts Urine Opiates Screen Urine Methadone Screen Ur Barbiturates Screen Ur Phencyclidine Scrn Ur Amphetamines Screen U Benzodiazepines Scrn U Oth Cocaine Metabols U Cannabinoids Screen C. difficile Ag & Toxin Negative HIV-1 Ab Rapid Screen 06/12/18 06/12/18 19:55 21:47 WBC RBC Hgb Hct MCV MCH MCHC RDW Plt Count Sodium Potassium Chloride Carbon Dioxide Anion Gap BUN Creatinine Est GFR ( Amer) Est GFR (Non-Af Amer) POC Glucose (mg/dL) 117 H Random Glucose Calcium Phosphorus Iron TIBC % Saturation Ferritin Total Bilirubin AST ALT Alkaline Phosphatase Ammonia < 9 L Total Protein Albumin Globulin Albumin/Globulin Ratio Triglycerides Cholesterol LDL Cholesterol Direct HDL Cholesterol Vitamin B12 Thyroxine (T4) TSH 3rd Generation Urine Color Urine Clarity Urine pH Ur Specific [place] Urine Protein Urine Glucose (UA) Urine Ketones Urine Blood Urine Nitrate Urine Bilirubin Urine Urobilinogen Ur Leukocyte Esterase Urine RBC (Auto) Urine Microscopic WBC Ur Squamous Epith Cells Hyaline Casts Urine Opiates Screen Urine Methadone Screen Ur Barbiturates Screen Ur Phencyclidine Scrn Ur Amphetamines Screen U Benzodiazepines Scrn U Oth Cocaine Metabols U Cannabinoids Screen C. difficile Ag & Toxin HIV-1 Ab Rapid Screen Assessment & Plan - Assessment and Plan (Free Text) Assessment: 67 yr old male with newly diagnosed HIV who most likely has dementia from AIds complex and is now stable. He is not having seizures, and is afebrile. PLan; 1. MRI Brain with contrast 2. EEG. Thank you Dr. Low Neurology
[2018-06-13 00:41] LABS: CREATININE, RANDOM URINE 185.5 mg/dL
[2018-06-13] MEDS: Sodium Chloride 0.9% 1,000 ML IV SCH ×3 (01:32→13:26)
[2018-06-13 06:47] LABS: SQUAMOUS EPITHIAL 1 /hpf (0-5); URINE BACTERIA RARE (<OCC); URINE BILIRUBIN NEGATIVE (NEGATIVE); URINE BLOOD SMALL (NEGATIVE); URINE CLARITY CLOUDY (Clear); URINE COLOR YELLOW (YELLOW); URINE GLUCOSE (UA) NEG (NEGATIVE); URINE HYALINE CAST >20 /hpf (0-2); URINE LEUKOCYTE ESTERASE TRACE Leu/uL (Negative); URINE PROTEIN 30 mg/dL (NEGATIVE); URINE UROBILINOGEN 0.2-1.0 mg/dL (0.2-1.0)
[2018-06-13 09:24] LABS: ABG ALLEN TEST YES; ARTERIAL BLOOD GAS HCO3 17.2 mmol/L (21-28); ARTERIAL BLOOD GAS PCO2 24 mm/Hg (35-45); ARTERIAL BLOOD GAS PH 7.37 (7.35-7.45); ARTERIAL BLOOD GAS PO2 54 mm/Hg (80-100); ARTERIAL BLOOD GAS TCO2 14.6 mmol/L (22-28)
[2018-06-13] MEDS ORDERED: Cefepime 2 GM in Sodium Chloride 0.9% 100 ML IVPB SCH (09:30)
[2018-06-13] MEDS: Enoxaparin 30 mg Syringe SC SCH (09:40)
[2018-06-13] MEDS: Pantoprazole 40 mg EC Tab PO SCH (09:41)
--- NOTE | 2018-06-13 10:23 | CP.PCM.PN ---
Subjective - Date & Time of Evaluation Date of Evaluation: 06/13/18 Time of Evaluation: 10:21 - Subjective Subjective: Patient appears to be restless somewhat and again not given any history and there is no family information so far that we can contact to get more information. Patient in bed moaning what appears to be from pain but not communicating Patient spiking fever and he has been started on antibiotics Objective - Vital Signs/Intake and Output Vital Signs (last 24 hours): Temp Pulse Resp BP Pulse Ox 99.4 F 108 H 16 99/60 L 100 06/13/18 08:10 06/13/18 08:10 06/13/18 10:04 06/13/18 08:10 06/13/18 08:10 Intake and Output: 06/13/18 06/13/18 06:59 18:59 Intake Total 1710 Output Total 800 Balance 910 - Medications Medications: Current Medications Acetaminophen (Tylenol 325mg Tab) 650 mg PO Q4 PRN PRN Reason: Fever >100.4 F Last Admin: 06/13/18 05:25 Dose: 650 mg Dextrose (Dextrose 50% Inj) 0 ml IV STAT PRN; Protocol PRN Reason: Hypoglycemia Protocol Dextrose (Glutose 15) 0 gm PO ONCE PRN; Protocol PRN Reason: Hypoglycemia Protocol Enoxaparin Sodium (Lovenox) 30 mg SC DAILY [facility]; Protocol Last Admin: 06/13/18 09:40 Dose: 30 mg Glucagon (Glucagen Diagnostic Kit) 0 mg IM STAT PRN; Protocol PRN Reason: Hypoglycemia Protocol Acyclovir 500 mg/ Sodium (Chloride) 100 mls @ 100 mls/hr IVPB DAILY [facility]; Protocol Last Admin: 06/12/18 15:38 Dose: Not Given Sodium Chloride (Sodium Chloride 0.9%) 1,000 mls @ 150 mls/hr IV .Q6H40M [facility] Stop: 06/13/18 18:47 Last Admin: 06/13/18 09:41 Dose: Not Given Cefepime HCl 2 gm/ Sodium (Chloride) 100 mls @ 100 mls/hr IVPB Q12 [facility]; Protocol Morphine Sulfate (Morphine) 2 mg IVP Q6 PRN PRN Reason: Pain, moderate (4-7) Last Admin: 06/12/18 15:38 Dose: 2 mg Pantoprazole Sodium (Protonix Ec Tab) 40 mg PO DAILY [facility] Last Admin: 06/13/18 09:41 Dose: 40 mg Sevelamer HCl (Renagel) 1,600 mg PO TID [facility] Last Admin: 06/13/18 09:43 Dose: Not Given - Labs Labs: 06/12/18 06:40 06/12/18 06:40 PT 12.1 Seconds (9.8-13.1) 06/11/18 22:01 INR 1.1 06/11/18 22:01 APTT 28.5 Seconds (25.6-37.1) 06/11/18 22:01 - Constitutional Appears: No Acute Distress - Eye Exam Eye Exam: Conjunctival injection - Neck Exam Neck Exam: absent: Lymphadenopathy - Respiratory Exam Respiratory Exam: NORMAL BREATHING PATTERN. absent: Chest Wall Tenderness - Cardiovascular Exam Cardiovascular Exam: absent: Gallop, JVD, Rubs - GI/Abdominal Exam GI & Abdominal Exam: Soft, Normal Bowel Sounds - Extremities Exam Extremities Exam: absent: Calf Tenderness - Back Exam Back Exam: absent: CVA tenderness (L), CVA tenderness (R) - Neurological Exam Neurological Exam: Altered - Psychiatric Exam Psychiatric exam: Flat Affect - Skin Skin Exam: absent: Cyanosis Assessment and Plan (1) Acute renal failure Assessment & Plan: Patient appears to have acute renal failure not sure if he has underlying chronic kidney disease most likely related to HIV. Sepsis patient spiking fever Hyperphosphatemia Hypercalcemia Encephalopathy Recommendation BMP still pending from this morning PTH still pending Continue phosphorus binder IV fluid If kidney function worsening we will do dialysis Patient need to go for kidney biopsy Will speak with the nurse practitioner Status: Acute (2) HIV (human immunodeficiency virus infection) Status: Acute
--- NOTE | 2018-06-13 10:48 | US ---
Date of service: 06/12/2018 PROCEDURE: Ultrasound of the Kidneys HISTORY: As per primary MD COMPARISON: None available. TECHNIQUE: Sonogram of the kidneys. FINDINGS: RIGHT KIDNEY: Measures: cm. 9.1 No stone, solid mass lesion or hydronephrosis visualized. LEFT KIDNEY: Measures: 10.4 cm. Normal in size, contour and echogenicity. No stone, solid mass lesion or hydronephrosis visualized. OTHER FINDINGS: None. IMPRESSION: Unremarkable renal sonogram.
[2018-06-13 10:57] LABS: INR 1.3; PROTHROMBIN TIME 14.5 Seconds (9.8-13.1)
[2018-06-13 11:00] LABS: ALB/GLOB RATIO 0.8 (1.0-2.1); ALBUMIN 2.5 g/dL (3.5-5.0); CALCIUM 8.3 mg/dL (8.4-10.2)
[2018-06-13 11:02] LABS: BASO % 0.2 % (0.0-2.0); EOS % 0.1 % (0.0-4.0); HEMOGLOBIN 7.5 g/dL (12.0-18.0); LYMPH # 0.7 K/uL (1.0-4.3); LYMPH % 10.7 % (20.0-40.0); MEAN CELL VOLUME 80.9 fl (80.0-94.0); MEAN CORPUSCULAR HEMOGLOBIN 25.9 pg (27.0-31.0); MEAN PLATELET VOLUME 10.1 fl (7.2-11.7); MONO # 0.4 K/uL (0.0-0.8); MONO % 5.7 % (0.0-10.0); NEUT # 5.4 K/uL (1.8-7.0); NEUT % 83.3 % (50.0-75.0); RBC 2.89 Mil/uL (4.40-5.90); RED CELL DISTRIBUTION WIDTH 15.4 % (11.5-14.5); WHITE BLOOD COUNT 6.5 K/uL (4.8-10.8)
[2018-06-13] MEDS: Acyclovir 500 MG in Sodium Chloride 0.9% 100 ML IVPB SCH (11:36)
--- NOTE | 2018-06-13 12:37 | CP.PCM.PN ---
<Susan Falcon - Last Filed: 06/13/18 13:43> Subjective - Date & Time of Evaluation Date of Evaluation: 06/13/18 Time of Evaluation: 12:37 - Subjective Subjective: Neuro Follow-Up Note: Mr. Henry was evaluated this afternoon at bedside. He appears somewhat confused and currently denies any complaints. Follows only some simple commands during exam. Denies h/a, dizziness, visual changes, chest pain, palpitations, sob, cough, abd pain, n/v/d. Objective - Vital Signs/Intake and Output Vital Signs (last 24 hours): Temp Pulse Resp BP Pulse Ox 98.2 F 79 18 99/60 L 100 06/13/18 12:14 06/13/18 12:14 06/13/18 12:14 06/13/18 08:10 06/13/18 12:14 Intake and Output: 06/13/18 06/13/18 06:59 18:59 Intake Total 1710 Output Total 800 Balance 910 - Medications Medications: Current Medications Acetaminophen (Tylenol 325mg Tab) 650 mg PO Q4 PRN PRN Reason: Fever >100.4 F Last Admin: 06/13/18 05:25 Dose: 650 mg Dextrose (Dextrose 50% Inj) 0 ml IV STAT PRN; Protocol PRN Reason: Hypoglycemia Protocol Dextrose (Glutose 15) 0 gm PO ONCE PRN; Protocol PRN Reason: Hypoglycemia Protocol Enoxaparin Sodium (Lovenox) 30 mg SC DAILY [facility]; Protocol Last Admin: 06/13/18 09:40 Dose: 30 mg Glucagon (Glucagen Diagnostic Kit) 0 mg IM STAT PRN; Protocol PRN Reason: Hypoglycemia Protocol Acyclovir 500 mg/ Sodium (Chloride) 100 mls @ 100 mls/hr IVPB DAILY [facility]; Protocol Last Admin: 06/13/18 11:36 Dose: 100 mls/hr Sodium Chloride (Sodium Chloride 0.9%) 1,000 mls @ 150 mls/hr IV .Q6H40M [facility] Stop: 06/13/18 18:47 Last Admin: 06/13/18 09:41 Dose: Not Given Cefepime HCl 2 gm/ Sodium (Chloride) 100 mls @ 100 mls/hr IVPB Q12 [facility]; Protocol Last Admin: 06/13/18 11:38 Dose: 100 mls/hr Morphine Sulfate (Morphine) 2 mg IVP Q6 PRN PRN Reason: Pain, moderate (4-7) Last Admin: 06/12/18 15:38 Dose: 2 mg Pantoprazole Sodium (Protonix Ec Tab) 40 mg PO DAILY [facility] Last Admin: 06/13/18 09:41 Dose: 40 mg Sevelamer HCl (Renagel) 1,600 mg PO TID [facility] Last Admin: 06/13/18 09:43 Dose: Not Given - Labs Labs: 06/13/18 10:42 06/13/18 10:42 PT 14.5 Seconds (9.8-13.1) H 06/13/18 10:42 INR 1.3 06/13/18 10:42 APTT 28.5 Seconds (25.6-37.1) 06/11/18 22:01 - Constitutional Appears: Confused - Head Exam Head Exam: NORMAL INSPECTION, NORMOCEPHALIC - Eye Exam Eye Exam: EOMI, Normal appearance. absent: Nystagmus Pupil Exam: NORMAL ACCOMODATION, PERRL - ENT Exam ENT Exam: Mucous Membranes Dry - Neck Exam Neck Exam: Normal Inspection - Respiratory Exam Respiratory Exam: NORMAL BREATHING PATTERN - Cardiovascular Exam Cardiovascular Exam: Tachycardia - GI/Abdominal Exam GI & Abdominal Exam: Soft - Extremities Exam Extremities Exam: absent: Calf Tenderness, Pedal Edema Additional comments: generalized weakness; I had a difficult time assessing strength because pt grimaces during exam but denies any pain or discomfort able to move all extremities on his own - Neurological Exam Neurological Exam: Altered, Awake Neuro motor strength exam: Left Upper Extremity: 3 (emergency communications operator 2/5), Right Upper Extremity: 3 (emergency communications operator 2/5), Left Lower Extremity: 3 (plantar flexion 2/5), Right Lower Extremity: 3 (plantar flexion 2/5) Additional comments: Awake, confused, unable to tell me where he is now; unable to follow all commands Speech is clear No facial asymmetry Generalized weakness noted to all extremities, moves extremities independently Unable to assess for ataxia or dysmetria as pt couldn't follow commands to do so No tremors noted Reflexes brisk b/l Gait not assessed. - Psychiatric Exam Additional comments: confused - Skin Skin Exam: Normal Color Assessment and Plan (1) Altered mental status Assessment & Plan: Imaging reviewed: -Non-contrast CT Head (06/11/18): No acute intracranial abnormality. Moderate global parenchymal volume loss. -ECHO (06/12/18): EF 55-60% -MRI Brain without contrast ordered to r/o cva or any other acute intracranial involvement--will f/u with results once completed. -EEG ordered to r/o seizures--will f/u with results once completed. -Will consider LP once MRI Brain is done. -Continue current treatment and management per primary and other consults. -Notify neuro team of any acute changes in pt's condition. Case discussed with Dr. Low. Status: Acute <Hipolito Glover - Last Filed: 06/14/18 09:41> Objective - Vital Signs/Intake and Output Vital Signs (last 24 hours): Temp Pulse Resp BP Pulse Ox 97.2 F L 57 L 23 95/61 L 100 06/14/18 08:00 06/14/18 08:00 06/14/18 08:00 06/14/18 08:00 06/14/18 08:00 Intake and Output: 06/14/18 06/14/18 06:59 18:59 Intake Total 3700 Output Total 1000 Balance 2700 - Medications Medications: Current Medications Acetaminophen (Tylenol 325mg Tab) 650 mg PO Q4 PRN PRN Reason: Fever >100.4 F Last Admin: 06/13/18 16:18 Dose: 650 mg Dextrose (Dextrose 50% Inj) 0 ml IV STAT PRN; Protocol PRN Reason: Hypoglycemia Protocol Dextrose (Glutose 15) 0 gm PO ONCE PRN; Protocol PRN Reason: Hypoglycemia Protocol Enoxaparin Sodium (Lovenox) 30 mg SC DAILY [facility]; Protocol Last Admin: 06/14/18 08:18 Dose: Not Given Glucagon (Glucagen Diagnostic Kit) 0 mg IM STAT PRN; Protocol PRN Reason: Hypoglycemia Protocol Acyclovir 500 mg/ Sodium (Chloride) 100 mls @ 100 mls/hr IVPB DAILY [facility]; Protocol Last Admin: 06/14/18 08:25 Dose: 100 mls/hr Sodium Chloride (Sodium Chloride 0.9%) 1,000 mls @ 1,000 mls/hr IV .Q1H [facility] Stop: 06/14/18 20:03 Last Admin: 06/13/18 20:10 Dose: 1,000 mls/hr Trimethoprim/Sulfamethoxazole (200 mg/ Dextrose) 250 mls @ 166.667 mls/hr IVPB Q12@0600,1800 [facility] Last Admin: 06/14/18 06:09 Dose: 166.667 mls/hr Moxifloxacin HCl (Avelox Iv 400mg/250ml Ns) 400 mg in 250 mls @ 250 mls/hr IVPB DAILY@2100 [facility]; Protocol Ceftriaxone Sodium 2 gm/ (Sodium Chloride) 100 mls @ 100 mls/hr IVPB Q12@1000,2200 [facility]; Protocol Sodium Chloride (Sodium Chloride 0.9%) 1,000 mls @ 1,000 mls/hr IV .Q1H [facility] Stop: 06/15/18 05:22 Last Admin: 06/14/18 05:22 Dose: 1,000 mls/hr Methylprednisolone (Solu-Medrol) 40 mg IVP Q12 [facility] Last Admin: 06/14/18 08:19 Dose: 40 mg Morphine Sulfate (Morphine) 2 mg IVP Q6 PRN PRN Reason: Pain, moderate (4-7) Last Admin: 06/12/18 15:38 Dose: 2 mg Pantoprazole Sodium (Protonix Inj) 40 mg IVP DAILY [facility] Sevelamer HCl (Renagel) 1,600 mg PO TID [facility] Last Admin: 06/14/18 08:24 Dose: Not Given - Labs Labs: 06/14/18 04:45 06/14/18 04:35 PT 14.5 Seconds (9.8-13.1) H 06/13/18 10:42 INR 1.3 06/13/18 10:42 APTT 28.5 Seconds (25.6-37.1) 06/11/18 22:01 Assessment and Plan (1) Altered mental status Status: Acute (2) HIV (human immunodeficiency virus infection) Status: Acute (3) Fever Status: Acute (4) Acute renal failure Status: Acute (5) Diabetes mellitus Status: Acute
--- NOTE | 2018-06-13 12:55 | CT ---
Date of service: 06/13/2018 PROCEDURE: CT Chest without contrast HISTORY: sob, fever COMPARISON: None available. TECHNIQUE: Contiguous axial images were obtained through the chest without intravenous contrast enhancement. Sagittal and coronal reconstructions were performed. Radiation dose (DLP): 191.04 mGy-cm. This CT exam was performed using one or more of the following dose reduction techniques: Automated exposure control, adjustment of the mA and/or kV according to patient size, and/or use of iterative reconstruction technique. FINDINGS: LUNGS: Heterogeneous ground-glass opacity in both upper lobes few small pulmonary cysts. Bilateral lower lobe reticular interstitial infiltrate with minimal patchy consolidation at the extreme lung bases in both lower lobes, left greater than right. Possible infectious versus inflammatory etiology. No pulmonary mass. MEDIASTINUM: Unremarkable thoracic aorta. No aneurysm. Normal sized heart. Main pulmonary artery unremarkable. No vascular congestion. No lymphadenopathy. Minimal atherosclerotic calcification of the thoracic aorta. PLEURA: No pleural fluid. No pneumothorax. BONES: No fracture. No destructive lesion. UPPER ABDOMEN: Grossly unremarkable. OTHER FINDINGS: None. IMPRESSION: Upper lobe heterogeneous ground-glass opacities. Lower lobe reticular interstitial infiltrates with minimal patchy consolidation at the extreme lung bases in both lower lobes. Possible infectious versus inflammatory etiology. No other significant abnormality.
--- NOTE | 2018-06-13 13:05 | CP.PCM.PN ---
Subjective - Date & Time of Evaluation Date of Evaluation: 06/13/18 Time of Evaluation: 12:20 - Subjective Subjective: F/U AMS awake, confused, denies headache, neck pain, SOB, C/P,abdominal pain, N/V/D Objective - Vital Signs/Intake and Output Vital Signs (last 24 hours): Temp Pulse Resp BP Pulse Ox 98.2 F 79 18 99/60 L 100 06/13/18 12:14 06/13/18 12:14 06/13/18 12:14 06/13/18 08:10 06/13/18 12:14 Intake and Output: 06/13/18 06/13/18 06:59 18:59 Intake Total 1710 Output Total 800 Balance 910 - Medications Medications: Current Medications Acetaminophen (Tylenol 325mg Tab) 650 mg PO Q4 PRN PRN Reason: Fever >100.4 F Last Admin: 06/13/18 05:25 Dose: 650 mg Dextrose (Dextrose 50% Inj) 0 ml IV STAT PRN; Protocol PRN Reason: Hypoglycemia Protocol Dextrose (Glutose 15) 0 gm PO ONCE PRN; Protocol PRN Reason: Hypoglycemia Protocol Enoxaparin Sodium (Lovenox) 30 mg SC DAILY [facility]; Protocol Last Admin: 06/13/18 09:40 Dose: 30 mg Glucagon (Glucagen Diagnostic Kit) 0 mg IM STAT PRN; Protocol PRN Reason: Hypoglycemia Protocol Acyclovir 500 mg/ Sodium (Chloride) 100 mls @ 100 mls/hr IVPB DAILY [facility]; Protocol Last Admin: 06/13/18 11:36 Dose: 100 mls/hr Sodium Chloride (Sodium Chloride 0.9%) 1,000 mls @ 150 mls/hr IV .Q6H40M [facility] Stop: 06/13/18 18:47 Last Admin: 06/13/18 09:41 Dose: Not Given Cefepime HCl 2 gm/ Sodium (Chloride) 100 mls @ 100 mls/hr IVPB Q12 [facility]; Protocol Last Admin: 06/13/18 11:38 Dose: 100 mls/hr Morphine Sulfate (Morphine) 2 mg IVP Q6 PRN PRN Reason: Pain, moderate (4-7) Last Admin: 06/12/18 15:38 Dose: 2 mg Pantoprazole Sodium (Protonix Ec Tab) 40 mg PO DAILY [facility] Last Admin: 06/13/18 09:41 Dose: 40 mg Sevelamer HCl (Renagel) 1,600 mg PO TID [facility] Last Admin: 06/13/18 09:43 Dose: Not Given - Labs Labs: 06/13/18 10:42 06/13/18 10:42 PT 14.5 Seconds (9.8-13.1) H 06/13/18 10:42 INR 1.3 06/13/18 10:42 APTT 28.5 Seconds (25.6-37.1) 06/11/18 22:01 - Constitutional Appears: Chronically Ill - Head Exam Head Exam: NORMAL INSPECTION - Eye Exam Eye Exam: Conjunctival injection - ENT Exam Additional comments: Oral thrush - Neck Exam Neck Exam: Normal Inspection - Respiratory Exam Respiratory Exam: Rhonchi (scattered at bases) - Cardiovascular Exam Cardiovascular Exam: REGULAR RHYTHM - GI/Abdominal Exam GI & Abdominal Exam: Soft, Normal Bowel Sounds - Extremities Exam Extremities Exam: Normal Inspection - Back Exam Back Exam: NORMAL INSPECTION - Neurological Exam Neurological Exam: Alert, Awake, CN II-XII Intact Additional comments: Forgetful, follows commands - Skin Skin Exam: Warm Assessment and Plan (1) Altered mental status Status: Acute (2) HIV (human immunodeficiency virus infection) Status: Acute (3) Fever Status: Acute (4) Pneumonia Status: Acute (5) Acute renal failure Status: Acute (6) Diabetes mellitus Status: Acute - Assessment and Plan (Free Text) Plan: Patient with fever, CT Chest PNA, treated for PCP, and coverage for Meningitis, however Patient does not have meningeal signs or symptom, Tachycardia improved, f/u blood and Urine C-S
--- NOTE | 2018-06-13 13:10 | CP.PCM.CON ---
History of Present Illness - History of Present Illness History of Present Illness: 67 yo male admitted to [facility] with confusional state- brought to ER after being found in squalid apartment Found to have renal failure and referred for ID eval for newly dx HIV+ PMH - DM Emigrated from [place] many yrs ago FH - N/C NKDA Review of Systems - Review of Systems Systems not reviewed;Unavailable: Altered Mental Status - Constitutional Constitutional: As Per HPI - EENT Eyes: absent: As Per HPI, Blind Spots, Blurred Vision, Change in Vision, Decreased Night Vision, Diplopia, Discharge, Dry Eye, Exophthalmos, Floaters, Irritation, Itchy Eyes, Loss of Peripheral Vision, Pain, Photophobia, Requires Corrective Lenses, Sees Flashes, Spots in Vision, Tunnel Vision, Other Visual Disturbances, Loss of Vision, Other Ears: absent: As Per HPI, Decreased Hearing, Ear Discharge, Ear Pain, Tinnitus, Abnormal Hearing, Disequilibrium, Dizziness, Other Nose/Mouth/Throat: absent: As Per HPI, Epistaxis, Nasal Congestion, Nasal Disc harge, Nasal Obstruction, Nasal Trauma, Nose Pain, Post Nasal Drip, Sinus Pain, Sinus Pressure, Bleeding Gums, Change in Voice, Dental Pain, Dry Mouth, Dysphagia, Halitosis, Hoarsness, Lip Swelling, Mouth Lesions, Mouth Pain, Odynophagia, Sore Throat, Throat Swelling, Tongue Swelling, Facial Pain, Neck Pain, Neck Mass, Other - Cardiovascular Cardiovascular: absent: As Per HPI, Acrocyanosis, Chest Pain, Chest Pain at Rest, Chest Pain with Activity, Claudication, Diaphoresis, Dyspnea, Dyspnea on Exertion, Edema, Irregular Heart Rhythm, Pain Radiating to Arm/Neck/Jaw, Leg Edema, Leg Ulcers, Lightheadedness, Orthopnea, Palpitations, Paroxysmal Nocturnal Dyspnea, Pedal Edema, Radiating Pain, Rapid Heart Rate, Slow Heart Rate, Syncope, Other - Respiratory Respiratory: absent: As Per HPI, Cough, Dyspnea, Hemoptysis, Dyspnea on Exertion, Wheezing, Snoring, Stridor, Pain on Inspiration, Chest Congestion, Excessive Mucous Production, Change in Mucous Color, Pain with Coughing, Other - Gastrointestinal Gastrointestinal: absent: As Per HPI, Abdominal Pain, Belching, Bloating, Change in Bowel Habits, Change in Stool Character, Coffee Ground Emesis, Constipation, Cramping, Diarrhea, Dyspepsia, Dysphagia, Early Satiety, Excessive Flatus, Fecal Incontinence, Heartburn, Hematemesis, Hematochezia, Loose Stools, Melena, Nausea, Odynophagia, Temesmus, Vomiting, Other - Genitourinary Genitourinary: absent: As Per HPI, Change in Urinary Stream, Difficulty Urinating, Dysuria, Flank Pain, Hematuria, Pyuria, Nocturia, Urinary Incontinence, Urinary Frequency, Urinary Hesitance, Urinary Urgency, Voiding Freq/Small Amts, Freq UTI, Hx Renal/Bladder Calculi, Hx /Renal Surgery, Bladder Distension, Other - Musculoskeletal Musculoskeletal: absent: As Per HPI, Abnormal Gait, Arthralgias, Atrophy, Back Pain, Deformity, Joint Swelling, Limited Range of Motion, Loss of Height, Muscle Cramps, Muscle Weakness, Myalgias, Neck Pain, Numbness, Radiating Pain into Limb, Stiffness, Tingling, Other - Integumentary Integumentary: absent: As Per HPI, Acne, Alopecia, Bleeding Lesions, Change in Hair, Change in Nails, Change in Pigmentation, Changing Lesions, Dry Skin, Eryth tatyana, Furuncle, Hirsutism, Lesions, New Lesions, Non-Healing Lesions, Photosensitivity, Pruritus, Rash, Skin Pain, Skin Ulcer, Sores, Striae, Swelling, Unusual Bruising, Wounds, Jaundice, Other - Neurological Neurological: As Per HPI - Psychiatric Psychiatric: As Per HPI - Endocrine Endocrine: absent: As Per HPI, Change in Body Appearance, Change in Libido, Cold Intolorance, Deepening of Voice, Excessive Sweating, Fatigue, Flushing, Heat Intolorance, Increase in Ring/Shoe/Hat Size, Palpitations, Polydipsia, Polyphagia, Polyuria, Other - Hematologic/Lymphatic Hematologic: absent: As Per HPI, Easy Bleeding, Easy Bruising, Lymphadenopathy, Other Past Patient History - Past Social History Smoking Status: Never Smoked Alcohol: None (Pt deied) Drugs: Denies (Pt denied.) Home Situation {Lives}: Alone - HEMATOLOGICAL/ONCOLOGICAL Hx Blood Disorders: Yes Hx Human Immunodeficiency Virus (HIV): Yes - MUSCULOSKELETAL/RHEUMATOLOGICAL Hx Falls: No - PSYCHIATRIC Hx Substance Use: No Meds Allergies/Adverse Reactions: Allergies Allergy/AdvReac Type Severity Reaction Status Date / Time Unobtainable Allergy Verified 06/11/18 20:48 - Medications Medications: Current Medications Acetaminophen (Tylenol 325mg Tab) 650 mg PO Q4 PRN PRN Reason: Fever >100.4 F Last Admin: 06/13/18 05:25 Dose: 650 mg Dextrose (Dextrose 50% Inj) 0 ml IV STAT PRN; Protocol PRN Reason: Hypoglycemia Protocol Dextrose (Glutose 15) 0 gm PO ONCE PRN; Protocol PRN Reason: Hypoglycemia Protocol Enoxaparin Sodium (Lovenox) 30 mg SC DAILY [facility] [place]; Protocol Last Admin: 06/13/18 09:40 Dose: 30 mg Glucagon (Glucagen Diagnostic Kit) 0 mg IM STAT PRN; Protocol PRN Reason: Hypoglycemia Protocol Acyclovir 500 mg/ Sodium (Chloride) 100 mls @ 100 mls/hr IVPB DAILY [facility]; Protocol Last Admin: 06/13/18 11:36 Dose: 100 mls/hr Sodium Chloride (Sodium Chloride 0.9%) 1,000 mls @ 150 mls/hr IV .Q6H40M [facility] Stop: 06/13/18 18:47 Last Admin: 06/13/18 09:41 Dose: Not Given Cefepime HCl 2 gm/ Sodium (Chloride) 100 mls @ 100 mls/hr IVPB Q12 [facility] [place]; Protocol Last Admin: 06/13/18 11:38 Dose: 100 mls/hr Morphine Sulfate (Morphine) 2 mg IVP Q6 PRN PRN Reason: Pain, moderate (4-7) Last Admin: 06/12/18 15:38 Dose: 2 mg Pantoprazole Sodium (Protonix Ec Tab) 40 mg PO DAILY [facility] [place] Last Admin: 06/13/18 09:41 Dose: 40 mg Sevelamer HCl (Renagel) 1,600 mg PO TID [facility] [place] Last Admin: 06/13/18 09:43 Dose: Not Given Physical Exam - Constitutional Appears: Confused, Cachectic, Chronically Ill - Head Exam Head Exam: ATRAUMATIC, NORMAL INSPECTION, NORMOCEPHALIC - Eye Exam Eye Exam: PERRL. absent: Scleral icterus - ENT Exam ENT Exam: Mucous Membranes Dry, Normal External Ear Exam - Neck Exam Neck exam: Negative for: Lymphadenopathy - Respiratory Exam Respiratory Exam: Decreased Breath Sounds, Rhonchi - Cardiovascular Exam Cardiovascular Exam: REGULAR RHYTHM, +S1, +S2 - GI/Abdominal Exam GI & Abdominal Exam: Diminished Bowel Sounds, Soft. absent: Tenderness - Rectal Exam Rectal Exam: Deferred - Exam Exam: NORMAL INSPECTION - Extremities Exam Extremities exam: Positive for: pedal pulses present. Negative for: calf tenderness, pedal edema, tenderness - Back Exam Back exam: absent: CVA tenderness (L), CVA tenderness (R), paraspinal tenderness - Neurological Exam Neurological exam: Alert, Altered, CN II-XII Intact Additional comments: movung extremities Results - Vital Signs Recent Vital Signs: Last Vital Signs Temp 98.2 F 06/13/18 12:14 Pulse 79 06/13/18 12:14 Resp 18 06/13/18 12:14 BP 99/60 L 06/13/18 08:10 Pulse Ox 100 06/13/18 12:14 - Labs Result Diagrams: 06/13/18 10:42 06/13/18 10:42 Labs: Laboratory Results - last 24 hr 06/12/18 06/12/18 06/12/18 11:16 12:19 14:49 WBC RBC Hgb Hct MCV MCH MCHC RDW Plt Count MPV Neut % (Auto) Lymph % (Auto) [place] % (Auto) Eos % (Auto) Baso % (Auto) Neut # (Auto) Lymph # (Auto) [place] # (Auto) Eos # (Auto) Baso # (Auto) PT INR pCO2 pO2 HCO3 ABG pH ABG Total CO2 ABG O2 Saturation ABG Base Excess Bright Test ABG Potassium A-a O2 Difference Sodium Chloride Glucose Lactate Vent Mode FiO2 Potassium Carbon Dioxide Anion Gap BUN Creatinine Est GFR ( Amer) Est GFR (Non-Af Amer) POC Glucose (mg/dL) 118 H Random Glucose Calcium Phosphorus Magnesium Ferritin 1700.0 H Total Bilirubin AST ALT Alkaline Phosphatase Ammonia Total Protein Albumin Globulin Albumin/Globulin Ratio Vitamin B12 > 1000 H Arterial Blood Potassium Urine Color Urine Clarity Urine pH Ur Specific [place] Urine Protein Urine Glucose (UA) Urine Ketones Urine Blood Urine Nitrate Urine Bilirubin Urine Urobilinogen Ur Leukocyte Esterase Urine RBC (Auto) Urine Microscopic WBC Ur Squamous Epith Cells Urine Bacteria Hyaline Casts Ur Random Creatinine 185.5 U Random Total Protein 22.0 H C. difficile Ag & Toxin 06/12/18 06/12/18 06/12/18 16:00 16:39 19:55 WBC RBC Hgb Hct MCV MCH MCHC RDW Plt Count MPV Neut % (Auto) Lymph % (Auto) [place] % (Auto) Eos % (Auto) Baso % (Auto) Neut # (Auto) Lymph # (Auto) [place] # (Auto) Eos # (Auto) Baso # (Auto) PT INR pCO2 pO2 HCO3 ABG pH ABG Total CO2 ABG O2 Saturation ABG Base Excess Bright Test ABG Potassium A-a O2 Difference Sodium Chloride Glucose Lactate Vent Mode FiO2 Potassium Carbon Dioxide Anion Gap BUN Creatinine Est GFR ( Amer) Est GFR (Non-Af Amer) POC Glucose (mg/dL) 159 H Random Glucose Calcium Phosphorus Magnesium Ferritin Total Bilirubin AST ALT Alkaline Phosphatase Ammonia < 9 L Total Protein Albumin Globulin Albumin/Globulin Ratio Vitamin B12 Arterial Blood Potassium Urine Color Urine Clarity Urine pH Ur Specific [place] Urine Protein Urine Glucose (UA) Urine Ketones Urine Blood Urine Nitrate Urine Bilirubin Urine Urobilinogen Ur Leukocyte Esterase Urine RBC (Auto) Urine Microscopic WBC Ur Squamous Epith Cells Urine Bacteria Hyaline Casts Ur Random Creatinine U Random Total Protein C. difficile Ag & Toxin Negative 06/12/18 06/13/18 06/13/18 21:47 05:42 05:45 WBC RBC Hgb Hct MCV MCH MCHC RDW Plt Count MPV Neut % (Auto) Lymph % (Auto) [place] % (Auto) Eos % (Auto) Baso % (Auto) Neut # (Auto) Lymph # (Auto) [place] # (Auto) Eos # (Auto) Baso # (Auto) PT INR pCO2 pO2 HCO3 ABG pH ABG Total CO2 ABG O2 Saturation ABG Base Excess Bright Test ABG Potassium A-a O2 Difference Sodium Chloride Glucose Lactate Vent Mode FiO2 Potassium Carbon Dioxide Anion Gap BUN Creatinine Est GFR ( Amer) Est GFR (Non-Af Amer) POC Glucose (mg/dL) 117 H 99 Random Glucose Calcium Phosphorus Magnesium Ferritin Total Bilirubin AST ALT Alkaline Phosphatase Ammonia Total Protein Albumin Globulin Albumin/Globulin Ratio Vitamin B12 Arterial Blood Potassium Urine Color Yellow Urine Clarity Cloudy Urine pH 5.0 Ur Specific [place] 1.012 Urine Protein 30 Urine Glucose (UA) Neg Urine Ketones Negative Urine Blood Small Urine Nitrate Negative Urine Bilirubin Negative Urine Urobilinogen 0.2-1.0 Ur Leukocyte Esterase Trace Urine RBC (Auto) 2 Urine Microscopic WBC 10 H Ur Squamous Epith Cells 1 Urine Bacteria Rare Hyaline Casts >20 H Ur Random Creatinine U Random Total Protein C. difficile Ag & Toxin 06/13/18 06/13/18 06/13/18 09:22 10:42 10:42 WBC 6.5 RBC 2.89 L Hgb 7.5 L D Hct 23.4 L MCV 80.9 MCH 25.9 L MCHC 32.0 L RDW 15.4 H Plt Count 202 MPV 10.1 Neut % (Auto) 83.3 H Lymph % (Auto) 10.7 L [place] % (Auto) 5.7 Eos % (Auto) 0.1 Baso % (Auto) 0.2 Neut # (Auto) 5.4 Lymph # (Auto) 0.7 L [place] # (Auto) 0.4 Eos # (Auto) 0.0 Baso # (Auto) 0.0 PT 14.5 H INR 1.3 pCO2 24 L pO2 54 L HCO3 17.2 L ABG pH 7.37 ABG Total CO2 14.6 L ABG O2 Saturation 93.0 L ABG Base Excess -9.5 L Bright Test Yes ABG Potassium 4.8 A-a O2 Difference 144.0 Sodium 145.0 Chloride 125.0 H Glucose 104 Lactate 0.9 Vent Mode N/c FiO2 32.0 Potassium Carbon Dioxide Anion Gap BUN Creatinine Est GFR ( Amer) Est GFR (Non-Af Amer) POC Glucose (mg/dL) Random Glucose Calcium Phosphorus Magnesium Ferritin Total Bilirubin AST ALT Alkaline Phosphatase Ammonia Total Protein Albumin Globulin Albumin/Globulin Ratio Vitamin B12 Arterial Blood Potassium 4.8 Urine Color Urine Clarity Urine pH Ur Specific [place] Urine Protein Urine Glucose (UA) Urine Ketones Urine Blood Urine Nitrate Urine Bilirubin Urine Urobilinogen Ur Leukocyte Esterase Urine RBC (Auto) Urine Microscopic WBC Ur Squamous Epith Cells Urine Bacteria Hyaline Casts Ur Random Creatinine U Random Total Protein C. difficile Ag & Toxin 06/13/18 06/13/18 10:42 11:02 WBC RBC Hgb Hct MCV MCH MCHC RDW Plt Count MPV Neut % (Auto) Lymph % (Auto) [place] % (Auto) Eos % (Auto) Baso % (Auto) Neut # (Auto) Lymph # (Auto) [place] # (Auto) Eos # (Auto) Baso # (Auto) PT INR pCO2 pO2 HCO3 ABG pH ABG Total CO2 ABG O2 Saturation ABG Base Excess Bright Test ABG Potassium A-a O2 Difference Sodium 142 Chloride 116 H Glucose Lactate Vent Mode FiO2 Potassium 4.5 Carbon Dioxide 14 L Anion Gap 17 BUN 83 H Creatinine 3.4 H Est GFR ( Amer) 22 Est GFR (Non-Af Amer) 18 POC Glucose (mg/dL) 144 H Random Glucose 153 H Calcium 8.3 L Phosphorus 5.9 H Magnesium 1.8 Ferritin Total Bilirubin 0.4 AST 42 ALT 21 Alkaline Phosphatase 93 Ammonia Total Protein 5.8 L Albumin 2.5 L D Globulin 3.3 Albumin/Globulin Ratio 0.8 L Vitamin B12 Arterial Blood Potassium Urine Color Urine Clarity Urine pH Ur Specific [place] Urine Protein Urine Glucose (UA) Urine Ketones Urine Blood Urine Nitrate Urine Bilirubin Urine Urobilinogen Ur Leukocyte Esterase Urine RBC (Auto) Urine Microscopic WBC Ur Squamous Epith Cells Urine Bacteria Hyaline Casts Ur Random Creatinine U Random Total Protein C. difficile Ag & Toxin Assessment & Plan (1) Acute renal failure Status: Acute Priority: High (2) Altered mental status Status: Acute Priority: High (3) Diabetes mellitus Status: Acute Priority: High (4) HIV (human immunodeficiency virus infection) Status: Acute Priority: High (5) Pneumonia Status: Acute - Assessment and Plan (Free Text) Assessment: 67 yo male admitted with AMS and fever Found to be HIV + Because of pneumonia will need to be treated for PCP as well as CAP Needs LP and eventually MRI T cells and viral load are pending Prognosis poor from outset
[2018-06-13] MEDS ORDERED: cefTRIAXone 2 GM in Sodium Chloride 0.9% 100 ML IVPB SCH (13:30)
[2018-06-13] MEDS ORDERED: Tmp-Smz 16 mg-80 mg/ml Inj IVPB SCH (13:30)
[2018-06-13] MEDS ORDERED: Moxifloxacin IV 400mg/250ml NS 400 MG/250 ML BAG IVPB SCH (13:30)
[2018-06-13] MEDS ORDERED: Sulfamethoxazole/Trimethoprim 200 MG in Dextrose 5% In Water 250 ML IVPB SCH ×2 (13:30→14:00)
--- NOTE | 2018-06-13 17:38 | CP.PCM.CON ---
History of Present Illness - History of Present Illness History of Present Illness: 67yo M. PMHx is uncertain. HIV positive, duration unknown. Patient p/w AMS (06/11) and is still altered (06/13). p/w acute kidney injury which has improved with hydration. Now having intermittent episodes of hypotension. Also now developing progressive hypoxia requiring high flow oxygen. Transferring to ICU for further monitoring. Past Patient History - Past Social History Smoking Status: Never Smoked Alcohol: None (Pt deied) Drugs: Denies (Pt denied.) Home Situation {Lives}: Alone - HEMATOLOGICAL/ONCOLOGICAL Hx Blood Disorders: Yes Hx Human Immunodeficiency Virus (HIV): Yes - MUSCULOSKELETAL/RHEUMATOLOGICAL Hx Falls: No - PSYCHIATRIC Hx Substance Use: No Meds Allergies/Adverse Reactions: Allergies Allergy/AdvReac Type Severity Reaction Status Date / Time Unobtainable Allergy Verified 06/11/18 20:48 - Medications Medications: Current Medications Acetaminophen (Tylenol 325mg Tab) 650 mg PO Q4 PRN PRN Reason: Fever >100.4 F Last Admin: 06/13/18 16:18 Dose: 650 mg Dextrose (Dextrose 50% Inj) 0 ml IV STAT PRN; Protocol PRN Reason: Hypoglycemia Protocol Dextrose (Glutose 15) 0 gm PO ONCE PRN; Protocol PRN Reason: Hypoglycemia Protocol Enoxaparin Sodium (Lovenox) 30 mg SC DAILY [facility]; Protocol Last Admin: 06/13/18 09:40 Dose: 30 mg Glucagon (Glucagen Diagnostic Kit) 0 mg IM STAT PRN; Protocol PRN Reason: Hypoglycemia Protocol Acyclovir 500 mg/ Sodium (Chloride) 100 mls @ 100 mls/hr IVPB DAILY [facility]; Protocol Last Admin: 06/13/18 11:36 Dose: 100 mls/hr Sodium Chloride (Sodium Chloride 0.9%) 1,000 mls @ 150 mls/hr IV .Q6H40M [facility] Stop: 06/13/18 18:47 Last Admin: 06/13/18 13:26 Dose: 150 mls/hr Trimethoprim/Sulfamethoxazole (200 mg/ Dextrose) 250 mls @ 166.667 mls/hr IVPB Q12@0200,1400 [facility] Last Admin: 06/13/18 16:23 Dose: 166.667 mls/hr Ceftriaxone Sodium 2 gm/ (Sodium Chloride) 100 mls @ 100 mls/hr IVPB Q12H [facility]; Protocol Moxifloxacin HCl (Avelox Iv 400mg/250ml Ns) 400 mg in 250 mls @ 250 mls/hr IVPB DAILY [facility]; Protocol Methylprednisolone (Solu-Medrol) 40 mg IVP Q12 [facility] Morphine Sulfate (Morphine) 2 mg IVP Q6 PRN PRN Reason: Pain, moderate (4-7) Last Admin: 06/12/18 15:38 Dose: 2 mg Pantoprazole Sodium (Protonix Ec Tab) 40 mg PO DAILY [facility] Last Admin: 06/13/18 09:41 Dose: 40 mg Sevelamer HCl (Renagel) 1,600 mg PO TID [facility] Last Admin: 06/13/18 13:29 Dose: Not Given Tuberculin PPD (Tubersol) 5 tu ID ONCE ONE Stop: 06/13/18 18:01 Physical Exam - Head Exam Head Exam: ATRAUMATIC, NORMAL INSPECTION, NORMOCEPHALIC - Eye Exam Eye Exam: EOMI, Normal appearance, PERRL - ENT Exam ENT Exam: Mucous Membranes Moist, Normal Exam - Neck Exam Neck exam: Positive for: Normal Inspection - Respiratory Exam Respiratory Exam: Clear to Auscultation Bilateral, NORMAL BREATHING PATTERN - Cardiovascular Exam Cardiovascular Exam: Tachycardia, REGULAR RHYTHM - GI/Abdominal Exam GI & Abdominal Exam: Normal Bowel Sounds, Soft. absent: Tenderness - Neurological Exam Neurological exam: Alert, Altered Results - Vital Signs Recent Vital Signs: Last Vital Signs Temp 100.6 F H 06/13/18 16:18 Pulse 126 H 06/13/18 16:09 Resp 22 06/13/18 16:09 BP 122/70 06/13/18 16:09 Pulse Ox 100 06/13/18 16:09 - Labs Result Diagrams: 06/13/18 10:42 06/13/18 10:42 Labs: Laboratory Results - last 24 hr 06/12/18 06/12/18 06/12/18 06:40 11:35 14:49 WBC RBC Hgb Hct MCV MCH MCHC RDW Plt Count MPV Neut % (Auto) Lymph % (Auto) [place] % (Auto) Eos % (Auto) Baso % (Auto) Neut # (Auto) Lymph # (Auto) [place] # (Auto) Eos # (Auto) Baso # (Auto) PT INR pCO2 pO2 HCO3 ABG pH ABG Total CO2 ABG O2 Saturation ABG Base Excess Bright Test ABG Potassium A-a O2 Difference Sodium Chloride Glucose Lactate Vent Mode FiO2 Potassium Carbon Dioxide Anion Gap BUN Creatinine Est GFR ( Amer) Est GFR (Non-Af Amer) POC Glucose (mg/dL) Random Glucose Calcium Phosphorus Magnesium Total Bilirubin AST ALT Alkaline Phosphatase Ammonia Total Protein Albumin Globulin Albumin/Globulin Ratio PTH Intact Whole Molec 19 19 Arterial Blood Potassium Urine Color Urine Clarity Urine pH Ur Specific [place] Urine Protein Urine Glucose (UA) Urine Ketones Urine Blood Urine Nitrate Urine Bilirubin Urine Urobilinogen Ur Leukocyte Esterase Urine RBC (Auto) Urine Microscopic WBC Ur Squamous Epith Cells Urine Bacteria Hyaline Casts Ur Random Creatinine 185.5 U Random Total Protein 22.0 H C. difficile Ag & Toxin 06/12/18 06/12/18 06/12/18 16:00 19:55 21:47 WBC RBC Hgb Hct MCV MCH MCHC RDW Plt Count MPV Neut % (Auto) Lymph % (Auto) [place] % (Auto) Eos % (Auto) Baso % (Auto) Neut # (Auto) Lymph # (Auto) [place] # (Auto) Eos # (Auto) Baso # (Auto) PT INR pCO2 pO2 HCO3 ABG pH ABG Total CO2 ABG O2 Saturation ABG Base Excess Bright Test ABG Potassium A-a O2 Difference Sodium Chloride Glucose Lactate Vent Mode FiO2 Potassium Carbon Dioxide Anion Gap BUN Creatinine Est GFR ( Amer) Est GFR (Non-Af Amer) POC Glucose (mg/dL) 117 H Random Glucose Calcium Phosphorus Magnesium Total Bilirubin AST ALT Alkaline Phosphatase Ammonia < 9 L Total Protein Albumin Globulin Albumin/Globulin Ratio PTH Intact Whole Molec Arterial Blood Potassium Urine Color Urine Clarity Urine pH Ur Specific [place] Urine Protein Urine Glucose (UA) Urine Ketones Urine Blood Urine Nitrate Urine Bilirubin Urine Urobilinogen Ur Leukocyte Esterase Urine RBC (Auto) Urine Microscopic WBC Ur Squamous Epith Cells Urine Bacteria Hyaline Casts Ur Random Creatinine U Random Total Protein C. difficile Ag & Toxin Negative 06/13/18 06/13/18 06/13/18 05:42 05:45 09:22 WBC RBC Hgb Hct MCV MCH MCHC RDW Plt Count MPV Neut % (Auto) Lymph % (Auto) [place] % (Auto) Eos % (Auto) Baso % (Auto) Neut # (Auto) Lymph # (Auto) [place] # (Auto) Eos # (Auto) Baso # (Auto) PT INR pCO2 24 L pO2 54 L HCO3 17.2 L ABG pH 7.37 ABG Total CO2 14.6 L ABG O2 Saturation 93.0 L ABG Base Excess -9.5 L Bright Test Yes ABG Potassium 4.8 A-a O2 Difference 144.0 Sodium 145.0 Chloride 125.0 H Glucose 104 Lactate 0.9 Vent Mode N/c FiO2 32.0 Potassium Carbon Dioxide Anion Gap BUN Creatinine Est GFR ( Amer) Est GFR (Non-Af Amer) POC Glucose (mg/dL) 99 Random Glucose Calcium Phosphorus Magnesium Total Bilirubin AST ALT Alkaline Phosphatase Ammonia Total Protein Albumin Globulin Albumin/Globulin Ratio PTH Intact Whole Molec Arterial Blood Potassium 4.8 Urine Color Yellow Urine Clarity Cloudy Urine pH 5.0 Ur Specific [place] 1.012 Urine Protein 30 Urine Glucose (UA) Neg Urine Ketones Negative Urine Blood Small Urine Nitrate Negative Urine Bilirubin Negative Urine Urobilinogen 0.2-1.0 Ur Leukocyte Esterase Trace Urine RBC (Auto) 2 Urine Microscopic WBC 10 H Ur Squamous Epith Cells 1 Urine Bacteria Rare Hyaline Casts >20 H Ur Random Creatinine U Random Total Protein C. difficile Ag & Toxin 06/13/18 06/13/18 06/13/18 10:42 10:42 10:42 WBC 6.5 RBC 2.89 L Hgb 7.5 L D Hct 23.4 L MCV 80.9 MCH 25.9 L MCHC 32.0 L RDW 15.4 H Plt Count 202 MPV 10.1 Neut % (Auto) 83.3 H Lymph % (Auto) 10.7 L [place] % (Auto) 5.7 Eos % (Auto) 0.1 Baso % (Auto) 0.2 Neut # (Auto) 5.4 Lymph # (Auto) 0.7 L [place] # (Auto) 0.4 Eos # (Auto) 0.0 Baso # (Auto) 0.0 PT 14.5 H INR 1.3 pCO2 pO2 HCO3 ABG pH ABG Total CO2 ABG O2 Saturation ABG Base Excess Bright Test ABG Potassium A-a O2 Difference Sodium 142 Chloride 116 H Glucose Lactate Vent Mode FiO2 Potassium 4.5 Carbon Dioxide 14 L Anion Gap 17 BUN 83 H Creatinine 3.4 H Est GFR ( Amer) 22 Est GFR (Non-Af Amer) 18 POC Glucose (mg/dL) Random Glucose 153 H Calcium 8.3 L Phosphorus 5.9 H Magnesium 1.8 Total Bilirubin 0.4 AST 42 ALT 21 Alkaline Phosphatase 93 Ammonia Total Protein 5.8 L Albumin 2.5 L D Globulin 3.3 Albumin/Globulin Ratio 0.8 L PTH Intact Whole Molec Arterial Blood Potassium Urine Color Urine Clarity Urine pH Ur Specific [place] Urine Protein Urine Glucose (UA) Urine Ketones Urine Blood Urine Nitrate Urine Bilirubin Urine Urobilinogen Ur Leukocyte Esterase Urine RBC (Auto) Urine Microscopic WBC Ur Squamous Epith Cells Urine Bacteria Hyaline Casts Ur Random Creatinine U Random Total Protein C. difficile Ag & Toxin 06/13/18 06/13/18 11:02 15:57 WBC RBC Hgb Hct MCV MCH MCHC RDW Plt Count MPV Neut % (Auto) Lymph % (Auto) [place] % (Auto) Eos % (Auto) Baso % (Auto) Neut # (Auto) Lymph # (Auto) [place] # (Auto) Eos # (Auto) Baso # (Auto) PT INR pCO2 pO2 HCO3 ABG pH ABG Total CO2 ABG O2 Saturation ABG Base Excess Bright Test ABG Potassium A-a O2 Difference Sodium Chloride Glucose Lactate Vent Mode FiO2 Potassium Carbon Dioxide Anion Gap BUN Creatinine Est GFR ( Amer) Est GFR (Non-Af Amer) POC Glucose (mg/dL) 144 H 124 H Random Glucose Calcium Phosphorus Magnesium Total Bilirubin AST ALT Alkaline Phosphatase Ammonia Total Protein Albumin Globulin Albumin/Globulin Ratio PTH Intact Whole Molec Arterial Blood Potassium Urine Color Urine Clarity Urine pH Ur Specific [place] Urine Protein Urine Glucose (UA) Urine Ketones Urine Blood Urine Nitrate Urine Bilirubin Urine Urobilinogen Ur Leukocyte Esterase Urine RBC (Auto) Urine Microscopic WBC Ur Squamous Epith Cells Urine Bacteria Hyaline Casts Ur Random Creatinine U Random Total Protein C. difficile Ag & Toxin Assessment & Plan (1) Altered mental status Assessment and Plan: 67yo M. PMHx is uncertain. HIV positive, duration unknown. Patient p/w AMS (06/11) and is still altered (06/13). p/w acute kidney injury which has improved with hydration. Now having intermittent episodes of hypotension. Also now developing progressive hypoxia requiring high flow oxygen. Transferring to ICU for further monitoring. Neuro: disoriented. MRI pending, may need to sedate to perform. Pulm: ground glass appearance at bilateral bases on chest CT, possible PCP pneumonia, continue high flow oxygen. CV: hemodynamically labile. Intermittent episodes of hypotension, will monitor. Hem: no acute issues Renal: acute kidney injury improving with hydration, will monitor urine output. Possible need of dialysis if patient's urine output decreases. Renal wants to perform kidney biopsy. Endo: no acute issues GI: regular diet ID: sepsis moxifloxacin, ceftriaxone, and steroids, presumptive treatment for meningitis, acyclovir for herpes encephalitis, bactrim for PCP. Lumbar puncture not performed as of now. ID - Dr. Ellison DVT proph - lovenox GI proph - protonix crisostomo for strict I/O's during acute illness Code status -full code Critical Care time spent 35 minutes Multi-disciplinary rounds were performed with house staff, nursing, speech the rapy, respiratory therapy, pharmacy and nutrition with integrated input from the primary team/attending and other consulting services. The documented time is cumulative and includes review of patient data/exams/labs/chart review and examination of the patient on rounds and throughout the day; time is exclusive of any procedures or teaching time. Status: Acute Priority: High
[2018-06-13] MEDS ORDERED: Tuberculin 5 Units/0.1 ml Inj ID ONE (18:00)
--- NOTE | 2018-06-13 18:26 | CP.PCM.CON ---
History of Present Illness - History of Present Illness History of Present Illness: Surgery Consult Note- Dr. Castellanos Reason for consult: TLC placement 67M was brought into [facility] after being found down for an unknown period of time w/ altered mental status. Friends of 25 years were at bedside providing HPI. Of note patient was at [facility] for 3 weeks, friends unsure as to why. Patient requiring IVAbx and IVF however patient has poor access. Subsequently surgery was consulted to place central line. 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 travels 3 hours per day to get from home to work and back. Lives at home by himself. Friends at bedside of 25 years. FH: family lives in [place] and [place] Review of Systems - Constitutional Constitutional: As Per HPI Past Patient History - Past Social History Smoking Status: Never Smoked Alcohol: None (Pt deied) Drugs: Denies (Pt denied.) Home Situation {Lives}: Alone - HEMATOLOGICAL/ONCOLOGICAL Hx Blood Disorders: Yes Hx Human Immunodeficiency Virus (HIV): Yes - MUSCULOSKELETAL/RHEUMATOLOGICAL Hx Falls: No - PSYCHIATRIC Hx Substance Use: No Meds Allergies/Adverse Reactions: Allergies Allergy/AdvReac Type Severity Reaction Status Date / Time Unobtainable Allergy Verified 06/11/18 20:48 - Medications Medications: Current Medications Acetaminophen (Tylenol 325mg Tab) 650 mg PO Q4 PRN PRN Reason: Fever >100.4 F Last Admin: 06/13/18 16:18 Dose: 650 mg Dextrose (Dextrose 50% Inj) 0 ml IV STAT PRN; Protocol PRN Reason: Hypoglycemia Protocol Dextrose (Glutose 15) 0 gm PO ONCE PRN; Protocol PRN Reason: Hypoglycemia Protocol Enoxaparin Sodium (Lovenox) 30 mg SC DAILY [facility]; Protocol Last Admin: 06/13/18 09:40 Dose: 30 mg Glucagon (Glucagen Diagnostic Kit) 0 mg IM STAT PRN; Protocol PRN Reason: Hypoglycemia Protocol Acyclovir 500 mg/ Sodium (Chloride) 100 mls @ 100 mls/hr IVPB DAILY [facility]; Protocol Last Admin: 06/13/18 11:36 Dose: 100 mls/hr Sodium Chloride (Sodium Chloride 0.9%) 1,000 mls @ 150 mls/hr IV .Q6H40M [facility] Stop: 06/13/18 18:47 Last Admin: 06/13/18 13:26 Dose: 150 mls/hr Trimethoprim/Sulfamethoxazole (200 mg/ Dextrose) 250 mls @ 166.667 mls/hr IVPB Q12@0200,1400 [facility] Last Admin: 06/13/18 16:23 Dose: 166.667 mls/hr Ceftriaxone Sodium 2 gm/ (Sodium Chloride) 100 mls @ 100 mls/hr IVPB Q12H [facility]; Protocol Moxifloxacin HCl (Avelox Iv 400mg/250ml Ns) 400 mg in 250 mls @ 250 mls/hr IVPB DAILY [facility]; Protocol Methylprednisolone (Solu-Medrol) 40 mg IVP Q12 [facility] Morphine Sulfate (Morphine) 2 mg IVP Q6 PRN PRN Reason: Pain, moderate (4-7) Last Admin: 06/12/18 15:38 Dose: 2 mg Pantoprazole Sodium (Protonix Ec Tab) 40 mg PO DAILY [facility] Last Admin: 06/13/18 09:41 Dose: 40 mg Sevelamer HCl (Renagel) 1,600 mg PO TID [facility] Last Admin: 06/13/18 13:29 Dose: Not Given Physical Exam - Constitutional Appears: Unkempt, Chronically Ill - Head Exam Head Exam: ATRAUMATIC - Eye Exam Eye Exam: EOMI. absent: Scleral icterus - ENT Exam ENT Exam: Mucous Membranes Dry - Respiratory Exam Respiratory Exam: Decreased Breath Sounds. absent: Accessory Muscle Use, Respiratory Distress - Cardiovascular Exam Cardiovascular Exam: Tachycardia, REGULAR RHYTHM. absent: Bradycardia - GI/Abdominal Exam GI & Abdominal Exam: Soft. absent: Distended, Guarding, Hernia, Rigid, Tenderness - Extremities Exam Extremities exam: Negative for: calf tenderness - Neurological Exam Neurological exam: Altered Additional comments: AAO to person, unable to determine to place and time - Skin Skin Exam: Intact, Warm Results - Vital Signs Recent Vital Signs: Last Vital Signs Temp 100.6 F H 06/13/18 16:18 Pulse 126 H 06/13/18 16:09 Resp 22 06/13/18 16:09 BP 122/70 06/13/18 16:09 Pulse Ox 100 06/13/18 16:09 - Labs Result Diagrams: 06/13/18 10:42 06/13/18 10:42 Labs: Laboratory Results - last 24 hr 06/12/18 06/12/18 06/12/18 06:40 11:35 14:49 WBC RBC Hgb Hct MCV MCH MCHC RDW Plt Count MPV Neut % (Auto) Lymph % (Auto) [place] % (Auto) Eos % (Auto) Baso % (Auto) Neut # (Auto) Lymph # (Auto) [place] # (Auto) Eos # (Auto) Baso # (Auto) PT INR pCO2 pO2 HCO3 ABG pH ABG Total CO2 ABG O2 Saturation ABG Base Excess Bright Test ABG Potassium A-a O2 Difference Sodium Chloride Glucose Lactate Vent Mode FiO2 Potassium Carbon Dioxide Anion Gap BUN Creatinine Est GFR ( Amer) Est GFR (Non-Af Amer) POC Glucose (mg/dL) Random Glucose Calcium Phosphorus Magnesium Total Bilirubin AST ALT Alkaline Phosphatase Ammonia Total Protein Albumin Globulin Albumin/Globulin Ratio PTH Intact Whole Molec 19 19 Arterial Blood Potassium Urine Color Urine Clarity Urine pH Ur Specific [place] Urine Protein Urine Glucose (UA) Urine Ketones Urine Blood Urine Nitrate Urine Bilirubin Urine Urobilinogen Ur Leukocyte Esterase Urine RBC (Auto) Urine Microscopic WBC Ur Squamous Epith Cells Urine Bacteria Hyaline Casts Ur Random Creatinine 185.5 U Random Total Protein 22.0 H RPR C. difficile Ag & Toxin 06/12/18 06/12/18 06/12/18 16:00 19:55 19:55 WBC RBC Hgb Hct MCV MCH MCHC RDW Plt Count MPV Neut % (Auto) Lymph % (Auto) [place] % (Auto) Eos % (Auto) Baso % (Auto) Neut # (Auto) Lymph # (Auto) [place] # (Auto) Eos # (Auto) Baso # (Auto) PT INR pCO2 pO2 HCO3 ABG pH ABG Total CO2 ABG O2 Saturation ABG Base Excess Bright Test ABG Potassium A-a O2 Difference Sodium Chloride Glucose Lactate Vent Mode FiO2 Potassium Carbon Dioxide Anion Gap BUN Creatinine Est GFR ( Amer) Est GFR (Non-Af Amer) POC Glucose (mg/dL) Random Glucose Calcium Phosphorus Magnesium Total Bilirubin AST ALT Alkaline Phosphatase Ammonia < 9 L Total Protein Albumin Globulin Albumin/Globulin Ratio PTH Intact Whole Molec Arterial Blood Potassium Urine Color Urine Clarity Urine pH Ur Specific [place] Urine Protein Urine Glucose (UA) Urine Ketones Urine Blood Urine Nitrate Urine Bilirubin Urine Urobilinogen Ur Leukocyte Esterase Urine RBC (Auto) Urine Microscopic WBC Ur Squamous Epith Cells Urine Bacteria Hyaline Casts Ur Random Creatinine U Random Total Protein RPR Nonreactive C. difficile Ag & Toxin Negative 06/12/18 06/13/18 06/13/18 21:47 05:42 05:45 WBC RBC Hgb Hct MCV MCH MCHC RDW Plt Count MPV Neut % (Auto) Lymph % (Auto) [place] % (Auto) Eos % (Auto) Baso % (Auto) Neut # (Auto) Lymph # (Auto) [place] # (Auto) Eos # (Auto) Baso # (Auto) PT INR pCO2 pO2 HCO3 ABG pH ABG Total CO2 ABG O2 Saturation ABG Base Excess Bright Test ABG Potassium A-a O2 Difference Sodium Chloride Glucose Lactate Vent Mode FiO2 Potassium Carbon Dioxide Anion Gap BUN Creatinine Est GFR ( Amer) Est GFR (Non-Af Amer) POC Glucose (mg/dL) 117 H 99 Random Glucose Calcium Phosphorus Magnesium Total Bilirubin AST ALT Alkaline Phosphatase Ammonia Total Protein Albumin Globulin Albumin/Globulin Ratio PTH Intact Whole Molec Arterial Blood Potassium Urine Color Yellow Urine Clarity Cloudy Urine pH 5.0 Ur Specific [place] 1.012 Urine Protein 30 Urine Glucose (UA) Neg Urine Ketones Negative Urine Blood Small Urine Nitrate Negative Urine Bilirubin Negative Urine Urobilinogen 0.2-1.0 Ur Leukocyte Esterase Trace Urine RBC (Auto) 2 Urine Microscopic WBC 10 H Ur Squamous Epith Cells 1 Urine Bacteria Rare Hyaline Casts >20 H Ur Random Creatinine U Random Total Protein RPR C. difficile Ag & Toxin 06/13/18 06/13/18 06/13/18 09:22 10:42 10:42 WBC 6.5 RBC 2.89 L Hgb 7.5 L D Hct 23.4 L MCV 80.9 MCH 25.9 L MCHC 32.0 L RDW 15.4 H Plt Count 202 MPV 10.1 Neut % (Auto) 83.3 H Lymph % (Auto) 10.7 L [place] % (Auto) 5.7 Eos % (Auto) 0.1 Baso % (Auto) 0.2 Neut # (Auto) 5.4 Lymph # (Auto) 0.7 L [place] # (Auto) 0.4 Eos # (Auto) 0.0 Baso # (Auto) 0.0 PT 14.5 H INR 1.3 pCO2 24 L pO2 54 L HCO3 17.2 L ABG pH 7.37 ABG Total CO2 14.6 L ABG O2 Saturation 93.0 L ABG Base Excess -9.5 L Bright Test Yes ABG Potassium 4.8 A-a O2 Difference 144.0 Sodium 145.0 Chloride 125.0 H Glucose 104 Lactate 0.9 Vent Mode N/c FiO2 32.0 Potassium Carbon Dioxide Anion Gap BUN Creatinine Est GFR ( Amer) Est GFR (Non-Af Amer) POC Glucose (mg/dL) Random Glucose Calcium Phosphorus Magnesium Total Bilirubin AST ALT Alkaline Phosphatase Ammonia Total Protein Albumin Globulin Albumin/Globulin Ratio PTH Intact Whole Molec Arterial Blood Potassium 4.8 Urine Color Urine Clarity Urine pH Ur Specific [place] Urine Protein Urine Glucose (UA) Urine Ketones Urine Blood Urine Nitrate Urine Bilirubin Urine Urobilinogen Ur Leukocyte Esterase Urine RBC (Auto) Urine Microscopic WBC Ur Squamous Epith Cells Urine Bacteria Hyaline Casts Ur Random Creatinine U Random Total Protein RPR C. difficile Ag & Toxin 06/13/18 06/13/18 06/13/18 10:42 11:02 15:57 WBC RBC Hgb Hct MCV MCH MCHC RDW Plt Count MPV Neut % (Auto) Lymph % (Auto) [place] % (Auto) Eos % (Auto) Baso % (Auto) Neut # (Auto) Lymph # (Auto) [place] # (Auto) Eos # (Auto) Baso # (Auto) PT INR pCO2 pO2 HCO3 ABG pH ABG Total CO2 ABG O2 Saturation ABG Base Excess Bright Test ABG Potassium A-a O2 Difference Sodium 142 Chloride 116 H Glucose Lactate Vent Mode FiO2 Potassium 4.5 Carbon Dioxide 14 L Anion Gap 17 BUN 83 H Creatinine 3.4 H Est GFR ( Amer) 22 Est GFR (Non-Af Amer) 18 POC Glucose (mg/dL) 144 H 124 H Random Glucose 153 H Calcium 8.3 L Phosphorus 5.9 H Magnesium 1.8 Total Bilirubin 0.4 AST 42 ALT 21 Alkaline Phosphatase 93 Ammonia Total Protein 5.8 L Albumin 2.5 L D Globulin 3.3 Albumin/Globulin Ratio 0.8 L PTH Intact Whole Molec Arterial Blood Potassium Urine Color Urine Clarity Urine pH Ur Specific [place] Urine Protein Urine Glucose (UA) Urine Ketones Urine Blood Urine Nitrate Urine Bilirubin Urine Urobilinogen Ur Leukocyte Esterase Urine RBC (Auto) Urine Microscopic WBC Ur Squamous Epith Cells Urine Bacteria Hyaline Casts Ur Random Creatinine U Random Total Protein RPR C. difficile Ag & Toxin Assessment & Plan - Assessment and Plan (Free Text) Assessment: 67M admitted for AMS, uremia found to be HIV +, surgery consulted for TLC placement due to difficult access Plan: - after complete examination was able to determine that patient would be able to have peripheral IV access - at bedside 2 PIV were inserted, R forearm 20G, L hand 24G. Both were able to be aspirated and flushed w/ ease and no signs of infiltration - will not place a TLC since 2 peripheral IVs were placed - no acute surgical intervention - please re-consult as needed; thank you for allowing us to participate in the care of this patient - discussed w/ Dr. Emanuel Nash PGY2
[2018-06-13] MEDS ORDERED: Sodium Chloride 0.9% 1,000 ML IV SCH (20:15)
[2018-06-13] MEDS ORDERED: methylPREDNISolone 40 MG in Sodium Chloride 0.9% 50 ML IVPB SCH (21:00)
[2018-06-13] MEDS ORDERED: ceFAZolin 1 GM in Sodium Chloride 0.9% 100 ML IVPB SCH (21:00)
[2018-06-13] MEDS: MethylPREDNISolone 40 mg Vial IVP SCH (21:07)
--- NOTE | 2018-06-13 23:46 | PCM.PROC ---
Procedures Attestation:: I certify that I have explained the specified Operation(s) or Procedure(s), risks, benefits and reasonable alternatives to the Patient and/or other person responsible. The opportunity was given to ask questions and all questions answered - Central Line Placement Right Internal Jugular Triple Lumen Catheter Aseptic technique was employed throughout the procedure: Hand Hygiene done prior to procedure, Full sterile barriers (mask, hair cover, sterile gown, sterile gloves), Full body sterile drape, Chloraprep Antiseptic: 30 second prep for IJ or SC sites CVP Time Out Performed: No Pt. Placed on Pulse Ox Monitor: Yes Central Line Prep: Chlorhexidine-Alcohol Combination Local Anesthesia Used: Lidocaine 2% Amount of Anesthesia Used (mls): 5 Ultrasound Used for Placement: Yes Central Line Lumen Inserted: triple Central Line Length: 20 cm Post Procedure: Sutured in Place, Sterile Dressing Applied Secured by: Suture Post procedure dressing: Clear vapor permeable Post Procedure X-Ray: Yes Patient Tolerated Procedure: Well, No Complications Immediate Complications: None
[2018-06-14] MEDS ORDERED: Sodium Chloride 0.9% 1,000 ML IV SCH (05:30)
[2018-06-14 05:32] LABS: HEMOGLOBIN 7.9 g/dL (12.0-18.0); MEAN CELL VOLUME 82.2 fl (80.0-94.0); MEAN CORPUSCULAR HEMOGLOBIN 25.9 pg (27.0-31.0); MEAN CORPUSCULAR HGB CONC 31.5 g/dL (33.0-37.0); RBC 3.06 Mil/uL (4.40-5.90); RED CELL DISTRIBUTION WIDTH 15.8 % (11.5-14.5); WHITE BLOOD COUNT 4.9 K/uL (4.8-10.8)
[2018-06-14 05:56] LABS: CALCIUM 7.9 mg/dL (8.4-10.2)
[2018-06-14] MEDS: Sulfamethoxazole/Trimethoprim 200 MG in Dextrose 5% In Water 250 ML IVPB SCH ×2 (06:09→17:06)
[2018-06-14] MEDS ORDERED: Albumin Human 25% (25 gm/100 ml) IV ONE (06:24)
[2018-06-14] MEDS: Pantoprazole 40 mg EC Tab PO SCH (08:18)
[2018-06-14] MEDS: Enoxaparin 30 mg Syringe SC SCH (08:18)
[2018-06-14] MEDS: MethylPREDNISolone 40 mg Vial IVP SCH ×2 (08:19→20:42)
[2018-06-14] MEDS: Acyclovir 500 MG in Sodium Chloride 0.9% 100 ML IVPB SCH (08:25)
[2018-06-14] MEDS ORDERED: Tuberculin 5 Units/0.1 ml Inj ID ONE (09:03)
[2018-06-14] MEDS: cefTRIAXone 2 GM in Sodium Chloride 0.9% 100 ML IVPB SCH ×2 (09:04→20:50)
[2018-06-14 09:48] LABS: % CD4 (T HELPER CELL) 1 Percent (30-61); % CD8 (SUPPRESSOR T CELL) 62 Percent (12-42); ABSOLUTE CD3 CELLS 880 Cells/mcL (840-3060); ABSOLUTE CD4 CELLS <20 Cells/mcL (490-1740); ABSOLUTE CD8 CELLS 747 Cells/mcL (180-1170); ABSOLUTE LYMPHOCYTES 1212 Cells/mcL (850-3900); HELPER/SUPPRESSOR RATIO 0.02 Ratio (0.86-5.00)
--- NOTE | 2018-06-14 10:04 | CP.PCM.PN ---
Subjective - Date & Time of Evaluation Date of Evaluation: 06/14/18 Time of Evaluation: 10:05 - Subjective Subjective: Patient more awake less encephalopathic Vital signs noted to be stable No nausea or vomiting reported Objective - Vital Signs/Intake and Output Vital Signs (last 24 hours): Temp Pulse Resp BP Pulse Ox 97.2 F L 57 L 18 95/61 L 100 06/14/18 08:00 06/14/18 08:00 06/14/18 09:47 06/14/18 08:00 06/14/18 08:00 Intake and Output: 06/14/18 06/14/18 06:59 18:59 Intake Total 3700 Output Total 1000 Balance 2700 - Medications Medications: Current Medications Acetaminophen (Tylenol 325mg Tab) 650 mg PO Q4 PRN PRN Reason: Fever >100.4 F Last Admin: 06/13/18 16:18 Dose: 650 mg Dextrose (Dextrose 50% Inj) 0 ml IV STAT PRN; Protocol PRN Reason: Hypoglycemia Protocol Dextrose (Glutose 15) 0 gm PO ONCE PRN; Protocol PRN Reason: Hypoglycemia Protocol Enoxaparin Sodium (Lovenox) 30 mg SC DAILY [facility]; Protocol Last Admin: 06/14/18 08:18 Dose: Not Given Glucagon (Glucagen Diagnostic Kit) 0 mg IM STAT PRN; Protocol PRN Reason: Hypoglycemia Protocol Acyclovir 500 mg/ Sodium (Chloride) 100 mls @ 100 mls/hr IVPB DAILY [facility]; Protocol Last Admin: 06/14/18 08:25 Dose: 100 mls/hr Sodium Chloride (Sodium Chloride 0.9%) 1,000 mls @ 1,000 mls/hr IV .Q1H [facility] Stop: 06/14/18 20:03 Last Admin: 06/13/18 20:10 Dose: 1,000 mls/hr Trimethoprim/Sulfamethoxazole (200 mg/ Dextrose) 250 mls @ 166.667 mls/hr IVPB Q12@0600,1800 [facility] Last Admin: 06/14/18 06:09 Dose: 166.667 mls/hr Moxifloxacin HCl (Avelox Iv 400mg/250ml Ns) 400 mg in 250 mls @ 250 mls/hr IVPB DAILY@2100 [facility]; Protocol Ceftriaxone Sodium 2 gm/ (Sodium Chloride) 100 mls @ 100 mls/hr IVPB Q12@1000, 2200 [facility]; Protocol Last Admin: 06/14/18 09:04 Dose: 100 mls/hr Sodium Chloride (Sodium Chloride 0.9%) 1,000 mls @ 1,000 mls/hr IV .Q1H [facility] Stop: 06/15/18 05:22 Last Admin: 06/14/18 05:22 Dose: 1,000 mls/hr Methylprednisolone (Solu-Medrol) 40 mg IVP Q12 [facility] Last Admin: 06/14/18 08:19 Dose: 40 mg Morphine Sulfate (Morphine) 2 mg IVP Q6 PRN PRN Reason: Pain, moderate (4-7) Last Admin: 06/12/18 15:38 Dose: 2 mg Pantoprazole Sodium (Protonix Inj) 40 mg IVP DAILY [facility] Last Admin: 06/14/18 09:04 Dose: 40 mg Sevelamer HCl (Renagel) 1,600 mg PO TID [facility] Last Admin: 06/14/18 08:24 Dose: Not Given - Labs Labs: 06/14/18 04:45 06/14/18 04:35 PT 14.5 Seconds (9.8-13.1) H 06/13/18 10:42 INR 1.3 06/13/18 10:42 APTT 28.5 Seconds (25.6-37.1) 06/11/18 22:01 - Constitutional Appears: No Acute Distress - Eye Exam Eye Exam: Conjunctival injection - ENT Exam ENT Exam: Mucous Membranes Moist - Neck Exam Neck Exam: absent: Lymphadenopathy - Respiratory Exam Respiratory Exam: NORMAL BREATHING PATTERN. absent: Chest Wall Tenderness - Cardiovascular Exam Cardiovascular Exam: REGULAR RHYTHM. absent: Gallop, JVD, Rubs - GI/Abdominal Exam GI & Abdominal Exam: Soft, Normal Bowel Sounds - Extremities Exam Extremities Exam: absent: Calf Tenderness - Back Exam Back Exam: absent: CVA tenderness (L), CVA tenderness (R) - Neurological Exam Neurological Exam: Awake - Skin Skin Exam: absent: Cyanosis Assessment and Plan (1) Acute renal failure Assessment & Plan: Patient appears to have acute renal failure related to HIV or sepsis not clear. Sepsis patient spiking fever Hyperphosphatemia Hypercalcemia Encephalopathy Recommendation Improving acute kidney injury serum creatinine and BUN coming down Hyperphosphatemia improving continue phosphorus binder Hypercalcemia corrected Continue gentle IV fluid Biotics as per ID considering renal function Renal ultrasound unremarkable appears to be okay No need for kidney biopsy at the moment since his kidney function improving Status: Acute (2) HIV (human immunodeficiency virus infection) Status: Acute
[2018-06-14] MEDS ORDERED: Nasal Spray(Ocean spray) NAS STA (11:13)
[2018-06-14 11:23] LABS: % CD4 (T HELPER CELL) 1 Percent (30-61); % CD8 (SUPPRESSOR T CELL) 65 Percent (12-42); ABSOLUTE CD4 CELLS <20 Cells/mcL (490-1740); ABSOLUTE CD8 CELLS 460 Cells/mcL (180-1170); ABSOLUTE LYMPHOCYTES 711 Cells/mcL (850-3900); HELPER/SUPPRESSOR RATIO 0.02 Ratio (0.86-5.00)
[2018-06-14] MEDS ORDERED: Sodium Chloride 3% for Inhalation 4 ML VIAL.NEB IH ONE (11:25)
[2018-06-14] MEDS: Morphine 4 MG/ML VIAL IVP PRN ×2 (12:05→17:27)
[2018-06-14 12:21] LABS: HEPATITIS B SURFACE AG Negative (NEGATIVE)
[2018-06-14 12:27] LABS: HEPATITIS A IGM NEGATIVE (NEGATIVE); HEPATITIS B CORE AB NEGATIVE (NEGATIVE)
[2018-06-14 12:38] LABS: HEPATITIS C ANTIBODY NEGATIVE (NEGATIVE)
--- NOTE | 2018-06-14 13:39 | CP.PCM.PN ---
Subjective - Date & Time of Evaluation Date of Evaluation: 06/14/18 Time of Evaluation: 13:39 - Subjective Subjective: Neuro Follow-Up Note: Mr. Henry was evaluated this afternoon at bedside in the ICU. He is on airborne isolation. He is still confused but more awake and alert than yesterday. He is somewhat agitated and is demanding to be d/c'd home. Denies any complaints. Denies h/a, dizziness, visual changes, chest pain, palpitations, sob, cough, abd pain, n/v/d. Chart reviewed; discussed with primary RN. Objective - Vital Signs/Intake and Output Vital Signs (last 24 hours): Temp Pulse Resp BP Pulse Ox 98.3 F 76 24 104/71 100 06/14/18 12:00 06/14/18 12:00 06/14/18 12:00 06/14/18 12:00 06/14/18 12:00 Intake and Output: 06/14/18 06/14/18 06:59 18:59 Intake Total 3700 1000 Output Total 1000 500 Balance 2700 500 - Medications Medications: Current Medications Acetaminophen (Tylenol 325mg Tab) 650 mg PO Q4 PRN PRN Reason: Fever >100.4 F Last Admin: 06/13/18 16:18 Dose: 650 mg Dextrose (Dextrose 50% Inj) 0 ml IV STAT PRN; Protocol PRN Reason: Hypoglycemia Protocol Dextrose (Glutose 15) 0 gm PO ONCE PRN; Protocol PRN Reason: Hypoglycemia Protocol Enoxaparin Sodium (Lovenox) 30 mg SC DAILY [facility]; Protocol Last Admin: 06/14/18 08:18 Dose: Not Given Glucagon (Glucagen Diagnostic Kit) 0 mg IM STAT PRN; Protocol PRN Reason: Hypoglycemia Protocol Acyclovir 500 mg/ Sodium (Chloride) 100 mls @ 100 mls/hr IVPB DAILY [facility]; Protocol Last Admin: 06/14/18 08:25 Dose: 100 mls/hr Sodium Chloride (Sodium Chloride 0.9%) 1,000 mls @ 1,000 mls/hr IV .Q1H [facility] Stop: 06/14/18 20:03 Last Admin: 06/13/18 20:10 Dose: 1,000 mls/hr Trimethoprim/Sulfamethoxazole (200 mg/ Dextrose) 250 mls @ 166.667 mls/hr IVPB Q12@0600,1800 [facility] Last Admin: 06/14/18 06:09 Dose: 166.667 mls/hr Moxifloxacin HCl (Avelox Iv 400mg/250ml Ns) 400 mg in 250 mls @ 250 mls/hr IVPB DAILY@2100 [facility]; Protocol Ceftriaxone Sodium 2 gm/ (Sodium Chloride) 100 mls @ 100 mls/hr IVPB Q12@1000,2200 [facility]; Protocol Last Admin: 06/14/18 09:04 Dose: 100 mls/hr Sodium Chloride (Sodium Chloride 0.9%) 1,000 mls @ 1,000 mls/hr IV .Q1H [facility] Stop: 06/15/18 05:22 Last Admin: 06/14/18 05:22 Dose: 1,000 mls/hr Methylprednisolone (Solu-Medrol) 40 mg IVP Q12 [facility] Last Admin: 06/14/18 08:19 Dose: 40 mg Morphine Sulfate (Morphine) 2 mg IVP Q6 PRN PRN Reason: Pain, moderate (4-7) Last Admin: 06/14/18 12:05 Dose: 2 mg Pantoprazole Sodium (Protonix Inj) 40 mg IVP DAILY [facility] Last Admin: 06/14/18 09:04 Dose: 40 mg Sevelamer HCl (Renagel) 1,600 mg PO TID [facility] Last Admin: 06/14/18 08:24 Dose: Not Given - Labs Labs: 06/14/18 04:45 06/14/18 04:35 PT 14.5 Seconds (9.8-13.1) H 06/13/18 10:42 INR 1.3 06/13/18 10:42 APTT 28.5 Seconds (25.6-37.1) 06/11/18 22:01 - Constitutional Appears: Agitated (restless, wants to go home) - Head Exam Head Exam: ATRAUMATIC, NORMAL INSPECTION, NORMOCEPHALIC - Eye Exam Eye Exam: EOMI, Normal appearance. absent: Nystagmus Pupil Exam: NORMAL ACCOMODATION, PERRL - ENT Exam ENT Exam: Mucous Membranes Moist - Neck Exam Neck Exam: Full ROM, Normal Inspection - Respiratory Exam Respiratory Exam: NORMAL BREATHING PATTERN (refusing to wear nasal cannula) - Extremities Exam Extremities Exam: Full ROM. absent: Calf Tenderness, Pedal Edema Additional comments: moves all extremities with generalized weakness - Neurological Exam Neurological Exam: Altered, Awake, CN II-XII Intact Neuro motor strength exam: Left Upper Extremity: 4, Right Upper Extremity: 4, Left Lower Extremity: 3, Right Lower Extremity: 3 Additional comments: Awake, confused, agitated and restless (demanding to be d/c home) He is able to follow some commands Speech is clear No facial asymmetry Generalized weakness noted to all extremities, moves extremities independently Unable to assess for ataxia or dysmetria as pt refused and was agitated No tremors noted Reflexes brisk b/l Gait not assessed. - Psychiatric Exam Psychiatric exam: Agitated Additional comments: confused - Skin Skin Exam: Normal Color Assessment and Plan (1) Altered mental status Assessment & Plan: Imaging reviewed: -Non-contrast CT Head (06/11/18): No acute intracranial abnormality. Moderate global parenchymal volume loss. -ECHO (06/12/18): EF 55-60% -MRI Brain without contrast ordered on 06/12/18 to r/o cva or any other acute intracranial involvement, it still has not been done--will f/u with results once completed. -EEG ordered to r/o seizures, will be done today per nursing--will f/u with results once completed. -Will consider LP once MRI Brain is done and resulted. -Maintain isolation as ordered. -Continue ICU management. -Notify neuro team of any acute changes in pt's condition. Case discussed with Dr. Low. Status: Acute
--- NOTE | 2018-06-14 14:05 | RAD ---
Date of service: 06/13/2018 HISTORY: S/P Triple Lumen Catheter insertion COMPARISON: 06/11/2018. Single-view chest. 06/13/2018 CT thorax. Summary of findings on the comparison examination: Upper lobe heterogeneous ground-glass opacities. Lower lobe reticular interstitial infiltrates with minimal patchy consolidation at the extreme lung bases in both lower lobes. Possible infectious versus inflammatory etiology. No other significant abnormality. FINDINGS: LUNGS: Stable multifocal infiltrates better visualized on the recent CT scan. PLEURA: No significant pleural effusion identified, no pneumothorax apparent. CARDIOVASCULAR: No atherosclerotic calcification present Venous access catheter in satisfactory position. OSSEOUS STRUCTURES: No significant abnormalities. VISUALIZED UPPER ABDOMEN: Normal. OTHER FINDINGS: None. IMPRESSION: S/p TLC placement, right internal jugular approach. Catheter in satisfactory position. No pneumothorax. Multifocal infiltrates bilaterally.
[2018-06-14] MEDS: Sodium Chloride 0.9% 1,000 ML IV SCH (14:40)
--- NOTE | 2018-06-14 16:01 | RAD ---
Date of service: 06/14/2018 HISTORY: s/p PICC LINE INSERTION: verification COMPARISON: 06/13/2018 FINDINGS: LUNGS: Ill-defined patchy opacity bilateral perihilar distribution. Possible pneumonia rule out pulmonary edema PLEURA: No significant pleural effusion identified, no pneumothorax apparent. CARDIOVASCULAR: No aortic atherosclerotic calcification present. Normal cardiac size. New right PICC catheter terminating in the region of the SVC. Right IJ central venous catheter has been removed. OSSEOUS STRUCTURES: No significant abnormalities. VISUALIZED UPPER ABDOMEN: Normal. OTHER FINDINGS: None. IMPRESSION: New right PICC catheter terminating in the region of the SVC.
--- NOTE | 2018-06-14 16:05 | CP.CCUPN ---
CCU Subjective - Physician Review Subjective (Free Text): 06/14/18 16:14 The patient was Seen/interviewed and examined by me at the bedside, Medical records reviewed and Management issues were discussed and formulated with the house staff. Events reviewed 67 Years old Male with unknown PMHx on admission who arrived to Emergency department on 06/11 via EMS after wellness check demonstrated unsuitable living conditions, with patient confused and unkempt. In ED patient poor historian, but notes dizziness, and denies falls, trauma, focal weakness or pain Given oral thrush rapid HIV was done in the ER and was positive He was transferred to ICU on 06/13 after [employer] P[employer]ER was called on the floor for Hypotension most likely secondary to volume depletion and severe dehydration He is currently in ICU for HUGO most likely prerenal, Altered mental status, severe sepsis from Pneumonia possibly PCP Hemodynamically improved No Vasopressors Awake, but still confused, follows some commands Comfortable, NAD Critical Care Time Spent (in minutes): 48 CCU Objective - Vital Signs / Intake & Output Vital Signs (Last 4 hours): Vital Signs Temp Pulse Resp BP 06/14/18 15:53 97.3 F L 84 19 115/72 06/14/18 15:15 18 06/14/18 13:49 20 Intake and Output (Last 8hrs): Intake & Output 06/14/18 06/14/18 06/14/18 06:59 14:59 22:59 Intake Total 2200 1000 12 Output Total 1000 500 Balance 1200 500 12 Weight 110 lb Intake: IV 1850 900 Intake, Piggyback 350 100 Blood Product 0 Red Blood Cells Cpd As1 0 Lr Unit [id number] Other 12 Red Blood Cells Cpd As1 12 Lr Unit [id number] Output: Urine 1000 Urethral (Yang) 1000 Stool 500 Other: # Bowel Movements 0 - Physical Exam Physical Exam Limitations: Positive for: Altered Mental Status, Clinical Condition, Uncooperative Head: Positive for: Atraumatic, Normocephalic Pupils: Positive for: PERRL Extroacular Muscles: Positive for: EOMI Conjunctiva: Positive for: Normal. Negative for: Injected, Icteric Mouth: Positive for: Moist Mucous Membranes. Negative for: Dry, Drooling Pharnyx: Positive for: Normal Nose (Internal): Positive for: Normal Inspection Neck: Positive for: Normal Range of Motion, Trachea Midline. Negative for: Meningeal Signs, MIDLINE TENDERNESS, Paraspinal Tenderness, JVD, Lymphadenopathy, Bruit, Other Respiratory/Chest: Positive for: Good Air Exchange, Decreased Breath Sounds, Rales, Rhonchi. Negative for: Respiratory Distress, Accessory Muscle Use, Tachypneic, Tender to Palpation Cardiovascular: Positive for: Regular Rate and Rhythm, Normal S1, S2, Peripheal Pulses Present. Negative for: Murmurs, Irregular Rhythm, Tachycardic, Bradycardic Abdomen: Positive for: Normal Bowel Sounds. Negative for: Tenderness, Distention Neurological: Positive for: Motor Func Grossly Intact, Normal Sensory Function. Negative for: GCS=15 Psychiatric: Positive for: Alert. Negative for: Oriented x 3 - Medications Active Medications: Active Medications Generic Name Dose Route Start Last Admin Trade Name Freq PRN Reason Stop Dose Admin Acetaminophen 650 mg 06/13/18 05:17 06/13/18 16:18 Tylenol 325mg Tab PO 650 mg Q4 PRN Administration Fever >100.4 F Dextrose 0 ml 06/11/18 22:54 Dextrose 50% Inj IV STAT PRN Hypoglycemia Protocol Protocol Dextrose 0 gm 06/11/18 22:54 Glutose 15 PO ONCE PRN Hypoglycemia Protocol Protocol Enoxaparin Sodium 30 mg 06/12/18 12:45 06/14/18 08:18 Lovenox SC Not Given DAILY RIMA Protocol Glucagon 0 mg 06/11/18 22:54 Glucagen Diagnostic Kit IM STAT PRN Hypoglycemia Protocol Protocol Acyclovir 500 mg/ Sodium 100 mls @ 100 mls/hr 06/12/18 15:00 06/14/18 08:25 Chloride IVPB 100 mls/hr DAILY RIMA Administration Protocol Sodium Chloride 1,000 mls @ 1,000 mls/hr 06/13/18 20:15 06/13/18 20:10 Sodium Chloride 0.9% IV 06/14/18 20:03 1,000 mls/hr .Q1H RIMA Administration Trimethoprim/Sulfamethoxazole 250 mls @ 166.667 mls/hr 06/14/18 06:00 06/14/18 06:09 200 mg/ Dextrose IVPB 166.667 mls/hr Q12@0600,1800 RIMA Administration Moxifloxacin HCl 400 mg in 250 mls @ 250 mls/hr 06/14/18 21:00 Avelox Iv 400mg/250ml Ns IVPB DAILY@2100 RIMA Protocol Ceftriaxone Sodium 2 gm/ 100 mls @ 100 mls/hr 06/14/18 10:00 06/14/18 09:04 Sodium Chloride IVPB 100 mls/hr Q12@1000,2200 RIMA Administration Protocol Sodium Chloride 1,000 mls @ 1,000 mls/hr 06/14/18 05:30 06/14/18 05:22 Sodium Chloride 0.9% IV 06/15/18 05:22 1,000 mls/hr .Q1H RIMA Administration Methylprednisolone 40 mg 06/13/18 21:00 06/14/18 08:19 Solu-Medrol IVP 40 mg Q12 RIMA Administration Morphine Sulfate 2 mg 06/12/18 14:33 06/14/18 12:05 Morphine IVP 2 mg Q6 PRN Administration Pain, moderate (4-7) Pantoprazole Sodium 40 mg 06/14/18 09:00 06/14/18 09:04 Protonix Inj IVP 40 mg DAILY RIMA Administration Sevelamer HCl 1,600 mg 06/12/18 13:00 06/14/18 14:41 Renagel PO Not Given TID RIMA - Patient Studies Lab Studies: Microbiology Studies 06/13/18 10:42 Blood Culture - Preliminary Blood NO GROWTH AFTER 24 HOURS 06/13/18 10:42 Blood Culture - Preliminary Blood NO GROWTH AFTER 24 HOURS 06/13/18 05:45 Urine Culture - Final Urine,Yang No Growth (<1,000 CFU/ML) 06/12/18 18:30 Blood Culture - Preliminary Blood NO GROWTH AFTER 24 HOURS Lab Studies 06/14/18 06/14/18 06/14/18 Range/Units 11:17 05:46 04:45 WBC 4.9 (4.8-10.8) K/uL RBC 3.06 L (4.40-5.90) Mil/uL Hgb 7.9 L (12.0-18.0) g/dL Hct 25.1 L (35.0-51.0) % MCV 82.2 (80.0-94.0) fl MCH 25.9 L (27.0-31.0) pg MCHC 31.5 L (33.0-37.0) g/dL RDW 15.8 H (11.5-14.5) % Plt Count 221 (130-400) K/uL Sodium (132-148) mmol/l Potassium (3.6-5.0) MMOL/L Chloride (98-107) mmol/L Carbon Dioxide (22-30) mmol/L Anion Gap (10-20) BUN (9-20) mg/dl Creatinine (0.8-1.5) mg/dl Est GFR ( Amer) Est GFR (Non-Af Amer) POC Glucose (mg/dL) 146 H 167 H (65-110) mg/dL Random Glucose (75-110) mg/dL Calcium (8.4-10.2) mg/dL Procalcitonin (0.19-0.49) NG/ML Absolute Lymphs (Flow) (850-3900) Cells/mcL % CD3 Cells (57-85) Percent Absolute CD3 Count (840-3060) Cells/mcL % CD4 Cells (30-61) Percent Absolute CD4 Count (490-1740) Cells/mcL T-Help/Suppress Ratio (0.86-5.00) Ratio % CD8 Cells (12-42) Percent Absolute CD8 Count (180-1170) Cells/mcL T-Lymph Analys Comment RPR (NONREACTIVE) Cryptococcus Ag (NEGATIVE) Hepatitis A IgM Ab (NEGATIVE) Hep Bs Antigen (NEGATIVE) Hep B Core IgM Ab (NEGATIVE) Hepatitis C Antibody (NEGATIVE) Ur L.pneumophila Ag (NEGATIVE) Blood Type Blood Type Confirm Antibody Screen Crossmatch BBK History Checked 06/14/18 06/14/18 06/13/18 Range/Units 04:35 04:35 20:45 WBC (4.8-10.8) K/uL RBC (4.40-5.90) Mil/uL Hgb (12.0-18.0) g/dL Hct (35.0-51.0) % MCV (80.0-94.0) fl MCH (27.0-31.0) pg MCHC (33.0-37.0) g/dL RDW (11.5-14.5) % Plt Count (130-400) K/uL Sodium 146 (132-148) mmol/l Potassium 4.6 (3.6-5.0) MMOL/L Chloride 118 H (98-107) mmol/L Carbon Dioxide 15 L (22-30) mmol/L Anion Gap 18 (10-20) BUN 63 H (9-20) mg/dl Creatinine 2.6 H (0.8-1.5) mg/dl Est GFR ( Amer) 30 Est GFR (Non-Af Amer) 25 POC Glucose (mg/dL) 148 H (65-110) mg/dL Random Glucose 148 H (75-110) mg/dL Calcium 7.9 L (8.4-10.2) mg/dL Procalcitonin (0.19-0.49) NG/ML Absolute Lymphs (Flow) (850-3900) Cells/mcL % CD3 Cells (57-85) Percent Absolute CD3 Count (840-3060) Cells/mcL % CD4 Cells (30-61) Percent Absolute CD4 Count (490-1740) Cells/mcL T-Help/Suppress Ratio (0.86-5.00) Ratio % CD8 Cells (12-42) Percent Absolute CD8 Count (180-1170) Cells/mcL T-Lymph Analys Comment RPR (NONREACTIVE) Cryptococcus Ag (NEGATIVE) Hepatitis A IgM Ab Negative (NEGATIVE) Hep Bs Antigen Negative (NEGATIVE) Hep B Core IgM Ab Negative (NEGATIVE) Hepatitis C Antibody Negative (NEGATIVE) Ur L.pneumophila Ag (NEGATIVE) Blood Type Blood Type Confirm Antibody Screen Crossmatch BBK History Checked 06/13/18 06/13/18 06/13/18 Range/Units 18:10 18:10 18:10 WBC (4.8-10.8) K/uL RBC (4.40-5.90) Mil/uL Hgb (12.0-18.0) g/dL Hct (35.0-51.0) % MCV (80.0-94.0) fl MCH (27.0-31.0) pg MCHC (33.0-37.0) g/dL RDW (11.5-14.5) % Plt Count (130-400) K/uL Sodium (132-148) mmol/l Potassium (3.6-5.0) MMOL/L Chloride (98-107) mmol/L Carbon Dioxide (22-30) mmol/L Anion Gap (10-20) BUN (9-20) mg/dl Creatinine (0.8-1.5) mg/dl Est GFR ( Amer) Est GFR (Non-Af Amer) POC Glucose (mg/dL) (65-110) mg/dL Random Glucose (75-110) mg/dL Calcium (8.4-10.2) mg/dL Procalcitonin 1.58 H (0.19-0.49) NG/ML Absolute Lymphs (Flow) (850-3900) Cells/mcL % CD3 Cells (57-85) Percent Absolute CD3 Count (840-3060) Cells/mcL % CD4 Cells (30-61) Percent Absolute CD4 Count (490-1740) Cells/mcL T-Help/Suppress Ratio (0.86-5.00) Ratio % CD8 Cells (12-42) Percent Absolute CD8 Count (180-1170) Cells/mcL T-Lymph Analys Comment RPR (NONREACTIVE) Cryptococcus Ag Negative (NEGATIVE) Hepatitis A IgM Ab (NEGATIVE) Hep Bs Antigen (NEGATIVE) Hep B Core IgM Ab (NEGATIVE) Hepatitis C Antibody (NEGATIVE) Ur L.pneumophila Ag (NEGATIVE) Blood Type B NEGATIVE Blood Type Confirm Antibody Screen Negative Crossmatch See Detail BBK History Checked No verified bt 06/13/18 06/13/18 06/13/18 Range/Units 15:57 10:42 10:18 WBC (4.8-10.8) K/uL RBC (4.40-5.90) Mil/uL Hgb (12.0-18.0) g/dL Hct (35.0-51.0) % MCV (80.0-94.0) fl MCH (27.0-31.0) pg MCHC (33.0-37.0) g/dL RDW (11.5-14.5) % Plt Count (130-400) K/uL Sodium (132-148) mmol/l Potassium (3.6-5.0) MMOL/L Chloride (98-107) mmol/L Carbon Dioxide (22-30) mmol/L Anion Gap (10-20) BUN (9-20) mg/dl Creatinine (0.8-1.5) mg/dl Est GFR ( Amer) Est GFR (Non-Af Amer) POC Glucose (mg/dL) 124 H (65-110) mg/dL Random Glucose (75-110) mg/dL Calcium (8.4-10.2) mg/dL Procalcitonin (0.19-0.49) NG/ML Absolute Lymphs (Flow) (850-3900) Cells/mcL % CD3 Cells (57-85) Percent Absolute CD3 Count (840-3060) Cells/mcL % CD4 Cells (30-61) Percent Absolute CD4 Count (490-1740) Cells/mcL T-Help/Suppress Ratio (0.86-5.00) Ratio % CD8 Cells (12-42) Percent Absolute CD8 Count (180-1170) Cells/mcL T-Lymph Analys Comment RPR (NONREACTIVE) Cryptococcus Ag (NEGATIVE) Hepatitis A IgM Ab (NEGATIVE) Hep Bs Antigen (NEGATIVE) Hep B Core IgM Ab (NEGATIVE) Hepatitis C Antibody (NEGATIVE) Ur L.pneumophila Ag Negative (NEGATIVE) Blood Type Blood Type Confirm B NEGATIVE Antibody Screen Crossmatch BBK History Checked 06/12/18 06/12/18 06/12/18 Range/Units 19:55 12:19 12:19 WBC (4.8-10.8) K/uL RBC (4.40-5.90) Mil/uL Hgb (12.0-18.0) g/dL Hct (35.0-51.0) % MCV (80.0-94.0) fl MCH (27.0-31.0) pg MCHC (33.0-37.0) g/dL RDW (11.5-14.5) % Plt Count (130-400) K/uL Sodium (132-148) mmol/l Potassium (3.6-5.0) MMOL/L Chloride (98-107) mmol/L Carbon Dioxide (22-30) mmol/L Anion Gap (10-20) BUN (9-20) mg/dl Creatinine (0.8-1.5) mg/dl Est GFR ( Amer) Est GFR (Non-Af Amer) POC Glucose (mg/dL) (65-110) mg/dL Random Glucose (75-110) mg/dL Calcium (8.4-10.2) mg/dL Procalcitonin (0.19-0.49) NG/ML Absolute Lymphs (Flow) 711 L 1212 (850-3900) Cells/mcL % CD3 Cells 73 (57-85) Percent Absolute CD3 Count 880 (840-3060) Cells/mcL % CD4 Cells 1 L 1 L (30-61) Percent Absolute CD4 Count <20 L <20 L (490-1740) Cells/mcL T-Help/Suppress Ratio 0.02 L 0.02 L (0.86-5.00) Ratio % CD8 Cells 65 H 62 H (12-42) Percent Absolute CD8 Count 460 747 (180-1170) Cells/mcL T-Lymph Analys Comment See note RPR Nonreactive (NONREACTIVE) Cryptococcus Ag (NEGATIVE) Hepatitis A IgM Ab (NEGATIVE) Hep Bs Antigen (NEGATIVE) Hep B Core IgM Ab (NEGATIVE) Hepatitis C Antibody (NEGATIVE) Ur L.pneumophila Ag (NEGATIVE) Blood Type Blood Type Confirm Antibody Screen Crossmatch BBK History Checked Laboratory Results - last 24 hr 06/12/18 06/12/18 06/12/18 12:19 12:19 19:55 WBC RBC Hgb Hct MCV MCH MCHC RDW Plt Count Sodium Potassium Chloride Carbon Dioxide Anion Gap BUN Creatinine Est GFR ( Amer) Est GFR (Non-Af Amer) POC Glucose (mg/dL) Random Glucose Calcium Procalcitonin Absolute Lymphs (Flow) 1212 711 L % CD3 Cells 73 Absolute CD3 Count 880 % CD4 Cells 1 L 1 L Absolute CD4 Count <20 L <20 L T-Help/Suppress Ratio 0.02 L 0.02 L % CD8 Cells 62 H 65 H Absolute CD8 Count 747 460 T-Lymph Analys Comment See note RPR Nonreactive Cryptococcus Ag Hepatitis A IgM Ab Hep Bs Antigen Hep B Core IgM Ab Hepatitis C Antibody Ur L.pneumophila Ag Blood Type Blood Type Confirm Antibody Screen Crossmatch BBK History Checked 06/13/18 06/13/18 06/13/18 10:18 10:42 15:57 WBC RBC Hgb Hct MCV MCH MCHC RDW Plt Count Sodium Potassium Chloride Carbon Dioxide Anion Gap BUN Creatinine Est GFR ( Amer) Est GFR (Non-Af Amer) POC Glucose (mg/dL) 124 H Random Glucose Calcium Procalcitonin Absolute Lymphs (Flow) % CD3 Cells Absolute CD3 Count % CD4 Cells Absolute CD4 Count T-Help/Suppress Ratio % CD8 Cells Absolute CD8 Count T-Lymph Analys Comment RPR Cryptococcus Ag Hepatitis A IgM Ab Hep Bs Antigen Hep B Core IgM Ab Hepatitis C Antibody Ur L.pneumophila Ag Negative Blood Type Blood Type Confirm B NEGATIVE Antibody Screen Crossmatch BBK History Checked 06/13/18 06/13/18 06/13/18 18:10 18:10 18:10 WBC RBC Hgb Hct MCV MCH MCHC RDW Plt Count Sodium Potassium Chloride Carbon Dioxide Anion Gap BUN Creatinine Est GFR ( Amer) Est GFR (Non-Af Amer) POC Glucose (mg/dL) Random Glucose Calcium Procalcitonin 1.58 H Absolute Lymphs (Flow) % CD3 Cells Absolute CD3 Count % CD4 Cells Absolute CD4 Count T-Help/Suppress Ratio % CD8 Cells Absolute CD8 Count T-Lymph Analys Comment RPR Cryptococcus Ag Negative Hepatitis A IgM Ab Hep Bs Antigen Hep B Core IgM Ab Hepatitis C Antibody Ur L.pneumophila Ag Blood Type B NEGATIVE Blood Type Confirm Antibody Screen Negative Crossmatch See Detail BBK History Checked No verified bt 06/13/18 06/14/18 06/14/18 20:45 04:35 04:35 WBC RBC Hgb Hct MCV MCH MCHC RDW Plt Count Sodium 146 Potassium 4.6 Chloride 118 H Carbon Dioxide 15 L Anion Gap 18 BUN 63 H Creatinine 2.6 H Est GFR ( Amer) 30 Est GFR (Non-Af Amer) 25 POC Glucose (mg/dL) 148 H Random Glucose 148 H Calcium 7.9 L Procalcitonin Absolute Lymphs (Flow) % CD3 Cells Absolute CD3 Count % CD4 Cells Absolute CD4 Count T-Help/Suppress Ratio % CD8 Cells Absolute CD8 Count T-Lymph Analys Comment RPR Cryptococcus Ag Hepatitis A IgM Ab Negative Hep Bs Antigen Negative Hep B Core IgM Ab Negative Hepatitis C Antibody Negative Ur L.pneumophila Ag Blood Type Blood Type Confirm Antibody Screen Crossmatch BBK History Checked 06/14/18 06/14/18 06/14/18 04:45 05:46 11:17 WBC 4.9 RBC 3.06 L Hgb 7.9 L Hct 25.1 L MCV 82.2 MCH 25.9 L MCHC 31.5 L RDW 15.8 H Plt Count 221 Sodium Potassium Chloride Carbon Dioxide Anion Gap BUN Creatinine Est GFR ( Amer) Est GFR (Non-Af Amer) POC Glucose (mg/dL) 167 H 146 H Random Glucose Calcium Procalcitonin Absolute Lymphs (Flow) % CD3 Cells Absolute CD3 Count % CD4 Cells Absolute CD4 Count T-Help/Suppress Ratio % CD8 Cells Absolute CD8 Count T-Lymph Analys Comment RPR Cryptococcus Ag Hepatitis A IgM Ab Hep Bs Antigen Hep B Core IgM Ab Hepatitis C Antibody Ur L.pneumophila Ag Blood Type Blood Type Confirm Antibody Screen Crossmatch BBK History Checked Radiology Impressions: Radiology Impressions Chest X-Ray 06/13/18 23:28 IMPRESSION: S/p TLC placement, right internal jugular approach. Catheter in satisfactory position. No pneumothorax. Multifocal infiltrates bilaterally. Fingerstick Blood Sugar Results: 146 Review of Systems - Review of Systems Systems not reviewed;Unavailable: Altered Mental Status Critical Care Progress Note - Extremities/Vascular Does the Patient have a Central Venous Catheter?: Yes Does the Patient need a Central Venous Catheter?: Yes Does the Patient have a Yang Catheter?: Yes Does the Patient need a Yang Catheter?: Yes - Nutrition Nutrition: Nutrition Category Date Time Status Consistent Carbohydrate [DIET] Diets 06/13/18 Dinner Active Assessment/Plan (1) Severe sepsis Current Visit: Yes Status: Acute Priority: High Comment: BP improved, no vasopressors, Continue current broad spectrum antibiotics Presumptive treatment for meningitis with Moxifloxacin, Ceftriaxone acyclovir for herpes encephalitis and bactrim for PCP. ID consult (2) Acute renal failure Current Visit: Yes Status: Acute Priority: High Comment: Acute renal injury due to circulatory failure and septic shock Hypotensive improved, No vasopressors Morning Labs showing improved renal functions IVF hydration Monitor Input/Output (3) Altered mental status Current Visit: Yes Status: Acute Priority: High Comment: Some neurological improvement Head CT scan negative for bleed MRI and EEG pending (4) Pneumonia Current Visit: Yes Status: Acute Priority: High Comment: As per sepsis, plus Solu-Medrol 40 mg IVP Q12 and bactrim presumptive treatment for PCP. (5) HIV (human immunodeficiency virus infection) Current Visit: Yes Status: Acute Priority: High - Assessment and Plan (Free Text) Assessment: # HOB maintained at 30 degrees. # GI/DVT PPX # Stress Ulcer prophylaxis with Protonix 40 mg IVP QD # DVT prophylaxis with SCD, Lovenox # Soft wrist restraints maintained for safety. # Code Status: Full code Patient next of kin (patient's closest relatives) is his mother who lives in [place] (speaks minimal Scottish), I called the patient's mother from [place] [phone] using yoruba interpretor (Paris Espinoza) Mother has agreed to appoint patient's uncle (donald) as NOK, let him sign consents in her absence and give permission to give all patient related conditions can be discussed with Patient's uncle (donald) Discussed patient condition and guarded prognosis with Patient's uncle (donald) and cousin (Brenna) came to visit patient , we reviewed the rationale, risks, benefits, treatment plans and alternatives, they were given the opportunity to ask many questions which were answered to their satisfaction. Permission also obtained for PICC placement, Blood transfusion and to obtain prior hospitalization records from [facility]. Also I called the PMD Dr Tucker [phone], Patient only known PMHx is HTN, HLD, Anxiety and was on Xanax, crestor, Fabian and Clarinex Total critical care time 48 minutes
--- NOTE | 2018-06-14 17:44 | CP.PCM.PN ---
Subjective - Date & Time of Evaluation Date of Evaluation: 06/14/18 Time of Evaluation: 10:00 - Subjective Subjective: F/U AMS awake , confused , restless, not following commands, on soft restrains Objective - Vital Signs/Intake and Output Vital Signs (last 24 hours): Temp Pulse Resp BP Pulse Ox 97.3 F L 84 16 118/80 100 06/14/18 16:54 06/14/18 16:54 06/14/18 16:54 06/14/18 16:54 06/14/18 16:00 Intake and Output: 06/14/18 06/14/18 06:59 18:59 Intake Total 3700 1732 Output Total 1000 500 Balance 2700 1232 - Medications Medications: Current Medications Acetaminophen (Tylenol 325mg Tab) 650 mg PO Q4 PRN PRN Reason: Fever >100.4 F Last Admin: 06/13/18 16:18 Dose: 650 mg Dextrose (Dextrose 50% Inj) 0 ml IV STAT PRN; Protocol PRN Reason: Hypoglycemia Protocol Dextrose (Glutose 15) 0 gm PO ONCE PRN; Protocol PRN Reason: Hypoglycemia Protocol Enoxaparin Sodium (Lovenox) 30 mg SC DAILY [facility]; Protocol Last Admin: 06/14/18 08:18 Dose: Not Given Glucagon (Glucagen Diagnostic Kit) 0 mg IM STAT PRN; Protocol PRN Reason: Hypoglycemia Protocol Acyclovir 500 mg/ Sodium (Chloride) 100 mls @ 100 mls/hr IVPB DAILY [facility]; Protocol Last Admin: 06/14/18 08:25 Dose: 100 mls/hr Sodium Chloride (Sodium Chloride 0.9%) 1,000 mls @ 1,000 mls/hr IV .Q1H [facility] Stop: 06/14/18 20:03 Last Admin: 06/13/18 20:10 Dose: 1,000 mls/hr Trimethoprim/Sulfamethoxazole (200 mg/ Dextrose) 250 mls @ 166.667 mls/hr IVPB Q12@0600,1800 [facility] Last Admin: 06/14/18 17:06 Dose: 166.667 mls/hr Moxifloxacin HCl (Avelox Iv 400mg/250ml Ns) 400 mg in 250 mls @ 250 mls/hr IVPB DAILY@2100 RIMA; Protocol Ceftriaxone Sodium 2 gm/ (Sodium Chloride) 100 mls @ 100 mls/hr IVPB Q12@1000,2200 [facility]; Protocol Last Admin: 06/14/18 09:04 Dose: 100 mls/hr Sodium Chloride (Sodium Chloride 0.9%) 1,000 mls @ 1,000 mls/hr IV .Q1H [facility] Stop: 06/15/18 05:22 Last Admin: 06/14/18 05:22 Dose: 1,000 mls/hr Methylprednisolone (Solu-Medrol) 40 mg IVP Q12 [facility] Last Admin: 06/14/18 08:19 Dose: 40 mg Morphine Sulfate (Morphine) 2 mg IVP Q6 PRN PRN Reason: Pain, moderate (4-7) Last Admin: 06/14/18 17:27 Dose: 2 mg Pantoprazole Sodium (Protonix Inj) 40 mg IVP DAILY [facility] Last Admin: 06/14/18 09:04 Dose: 40 mg Sevelamer HCl (Renagel) 1,600 mg PO TID [facility] Last Admin: 06/14/18 17:08 Dose: 1,600 mg - Labs Labs: 06/14/18 04:45 06/14/18 04:35 PT 14.5 Seconds (9.8-13.1) H 06/13/18 10:42 INR 1.3 06/13/18 10:42 APTT 28.5 Seconds (25.6-37.1) 06/11/18 22:01 - Constitutional Appears: Chronically Ill - Head Exam Head Exam: NORMAL INSPECTION - Eye Exam Eye Exam: PERRL - ENT Exam Additional comments: Oral trush - Neck Exam Neck Exam: Normal Inspection - Respiratory Exam Respiratory Exam: Decreased Breath Sounds, Rhonchi (scattered) - Cardiovascular Exam Cardiovascular Exam: REGULAR RHYTHM - GI/Abdominal Exam GI & Abdominal Exam: Soft, Normal Bowel Sounds - Extremities Exam Extremities Exam: Normal Inspection - Back Exam Back Exam: NORMAL INSPECTION - Neurological Exam Neurological Exam: Alert, Awake, CN II-XII Intact Additional comments: restless, not following commands, generalized weakness, no focal motor deficit - Psychiatric Exam Psychiatric exam: Agitated - Skin Skin Exam: Warm Assessment and Plan (1) Altered mental status Status: Acute (2) HIV (human immunodeficiency virus infection) Status: Acute (3) Severe sepsis Status: Acute (4) Fever Status: Acute (5) Pneumonia Status: Acute (6) Acute renal failure Status: Acute (7) Diabetes mellitus Status: Acute - Assessment and Plan (Free Text) Plan: continue Acyclovir,Rocephin, Avelox, Bactrim, Solu Medrol, IVF and rest of Tx Critical care time: 35 min.
[2018-06-14] MEDS: Moxifloxacin IV 400mg/250ml NS 400 MG/250 ML BAG IVPB SCH (20:42)
[2018-06-15] MEDS: Morphine 4 MG/ML VIAL IVP PRN (02:37)
[2018-06-15] MEDS: cefTRIAXone 2 GM in Sodium Chloride 0.9% 100 ML IVPB SCH ×3 (02:40→22:07)
[2018-06-15] MEDS ORDERED: Sodium Chloride 3% for Inhalation 4 ML VIAL.NEB IH ONE (04:22)
[2018-06-15 05:23] LABS: BASO % 0.2 % (0.0-2.0); HEMOGLOBIN 10.3 g/dL (12.0-18.0); LYMPH # 0.5 K/uL (1.0-4.3); MEAN CELL VOLUME 82.6 fl (80.0-94.0); MEAN CORPUSCULAR HEMOGLOBIN 27.2 pg (27.0-31.0); MEAN CORPUSCULAR HGB CONC 32.9 g/dL (33.0-37.0); MEAN PLATELET VOLUME 10.2 fl (7.2-11.7); MONO # 0.5 K/uL (0.0-0.8); MONO % 4.3 % (0.0-10.0); NEUT # 11.2 K/uL (1.8-7.0); NEUT % 91.5 % (50.0-75.0); PLATELET COUNT 187 K/uL (130-400); RED CELL DISTRIBUTION WIDTH 16.3 % (11.5-14.5); WHITE BLOOD COUNT 12.3 K/uL (4.8-10.8)
[2018-06-15] MEDS: Sulfamethoxazole/Trimethoprim 200 MG in Dextrose 5% In Water 250 ML IVPB SCH ×2 (05:52→22:06)
[2018-06-15 06:12] LABS: ALB/GLOB RATIO 0.7 (1.0-2.1); ALBUMIN 2.5 g/dL (3.5-5.0); CALCIUM 7.4 mg/dL (8.4-10.2)
[2018-06-15] MEDS: Sodium Chloride 0.9% 1,000 ML IV SCH ×3 (06:56→23:39)
[2018-06-15] MEDS: Enoxaparin 30 mg Syringe SC SCH (08:35)
[2018-06-15] MEDS: MethylPREDNISolone 40 mg Vial IVP SCH ×2 (08:37→22:09)
[2018-06-15] MEDS: Acyclovir 500 MG in Sodium Chloride 0.9% 100 ML IVPB SCH (08:37)
[2018-06-15 10:16] LABS: ANISOCYTOSIS SLIGHT; BANDS 3 % (0-2); EOSINOPHIL 1 % (0-7); HYPOCHROMIC SLIGHT; LYMPHOCYTE 2 % (20-50); MONOCYTE 2 % (0-10); NEUTROPHIL 92 % (42-75); OVALOCYTES SLIGHT; PLATELET ESTIMATE NORMAL (NORMAL); SCHISTOCYTES SLIGHT; TOTAL CELLS COUNTED 100
[2018-06-15 10:17] LABS: BURR CELLS MODERATE
[2018-06-15 10:18] LABS: POIKILOCYTOSIS MODERATE
--- NOTE | 2018-06-15 11:12 | CP.PCM.PN ---
Subjective - Date & Time of Evaluation Date of Evaluation: 06/15/18 Time of Evaluation: 11:11 - Subjective Subjective: Neuro Follow-Up Note: Mr. Henry was evaluated this afternoon at bedside in the ICU. He remains on airborne isolation. He is still confused but awake and follows simple commands. He is somewhat agitated and appears uncomfortable, though he denies any complaints. Denies h/a, dizziness, visual changes, chest pain, palpitations, so b, cough, abd pain, n/v/d. Objective - Vital Signs/Intake and Output Vital Signs (last 24 hours): Temp Pulse Resp BP Pulse Ox 97.3 F L 90 26 H 105/65 94 L 06/15/18 08:00 06/15/18 10:00 06/15/18 10:00 06/15/18 10:00 06/15/18 10:00 Intake and Output: 06/15/18 06/15/18 06:59 18:59 Intake Total 2365 550 Output Total 600 Balance 1765 550 - Medications Medications: Current Medications Acetaminophen (Tylenol 325mg Tab) 650 mg PO Q4 PRN PRN Reason: Fever >100.4 F Last Admin: 06/13/18 16:18 Dose: 650 mg Dextrose (Dextrose 50% Inj) 0 ml IV STAT PRN; Protocol PRN Reason: Hypoglycemia Protocol Dextrose (Glutose 15) 0 gm PO ONCE PRN; Protocol PRN Reason: Hypoglycemia Protocol Enoxaparin Sodium (Lovenox) 30 mg SC DAILY [facility]; Protocol Last Admin: 06/15/18 08:35 Dose: 30 mg Glucagon (Glucagen Diagnostic Kit) 0 mg IM STAT PRN; Protocol PRN Reason: Hypoglycemia Protocol Acyclovir 500 mg/ Sodium (Chloride) 100 mls @ 100 mls/hr IVPB DAILY [facility]; Protocol Last Admin: 06/15/18 08:37 Dose: 100 mls/hr Trimethoprim/Sulfamethoxazole (200 mg/ Dextrose) 250 mls @ 166.667 mls/hr IVPB Q12@0600,1800 [facility] Last Admin: 06/15/18 05:52 Dose: 166.667 mls/hr Moxifloxacin HCl (Avelox Iv 400mg/250ml Ns) 400 mg in 250 mls @ 250 mls/hr IVPB DAILY@2100 [facility]; Protocol Last Admin: 06/14/18 20:42 Dose: 250 mls/hr Ceftriaxone Sodium 2 gm/ (Sodium Chloride) 100 mls @ 100 mls/hr IVPB Q12@1000,2200 [facility]; Protocol Last Admin: 06/15/18 10:26 Dose: 100 mls/hr Sodium Chloride (Sodium Chloride 0.9%) 1,000 mls @ 150 mls/hr IV .Q6H40M [facility] Stop: 06/16/18 06:10 Last Admin: 06/15/18 06:56 Dose: 150 mls/hr Methylprednisolone (Solu-Medrol) 40 mg IVP Q12 [facility] Last Admin: 06/15/18 08:37 Dose: 40 mg Morphine Sulfate (Morphine) 2 mg IVP Q6 PRN PRN Reason: Pain, moderate (4-7) Last Admin: 06/15/18 02:37 Dose: 2 mg Pantoprazole Sodium (Protonix Inj) 40 mg IVP DAILY [facility] Last Admin: 06/15/18 08:36 Dose: 40 mg Sevelamer HCl (Renagel) 1,600 mg PO TID [facility] Last Admin: 06/15/18 08:36 Dose: Not Given - Labs Labs: 06/15/18 04:30 06/15/18 04:30 PT 14.5 Seconds (9.8-13.1) H 06/13/18 10:42 INR 1.3 06/13/18 10:42 APTT 28.5 Seconds (25.6-37.1) 06/11/18 22:01 - Constitutional Appears: Other (appears uncomfortable (grimacing, restless)) - Head Exam Head Exam: ATRAUMATIC, NORMAL INSPECTION, NORMOCEPHALIC - Eye Exam Eye Exam: EOMI, Normal appearance. absent: Nystagmus Pupil Exam: NORMAL ACCOMODATION, PERRL - ENT Exam ENT Exam: Mucous Membranes Moist - Neck Exam Neck Exam: Full ROM, Normal Inspection - Respiratory Exam Respiratory Exam: absent: NORMAL BREATHING PATTERN (tachypneic, O2 via NC noted on the pt) - Cardiovascular Exam Cardiovascular Exam: REGULAR RHYTHM - GI/Abdominal Exam GI & Abdominal Exam: Soft - Extremities Exam Extremities Exam: absent: Calf Tenderness, Pedal Edema Additional comments: Able to move BLE with some generalized weakness Unable to fully assess ROM to BUE as the pt has on soft wrist restraints for safety as he is agitated and attempts to pull IV and tubes. - Neurological Exam Neurological Exam: Altered, Awake. absent: Oriented x3 Neuro motor strength exam: Left Lower Extremity: 3, Right Lower Extremity: 3 Additional comments: Awake, confused, agitated and restless. 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 No tremors noted Reflexes brisk b/l Gait not assessed. - Psychiatric Exam Additional comments: confused, somewhat agitated, follows some simple commands - Skin Skin Exam: Normal Color Assessment and Plan (1) Altered mental status Assessment & Plan: Imaging reviewed: -Non-contrast CT Head (06/11/18): No acute intracranial abnormality. Moderate global parenchymal volume loss. -ECHO (06/12/18): EF 55-60% -MRI Brain without contrast ordered on 06/12/18 to r/o cva or any other acute intracranial involvement, it still has not been done--we will f/u with results once it is completed. -VEEG in progress; to end today at 1430--will f/u with results once completed. -Will consider LP once MRI Brain is done and resulted. -Maintain isolation as ordered. -Continue ICU management and recommendations per ID and other consults. -Notify neuro team of any acute changes in pt's condition. Case discussed with Dr. Low Status: Acute
--- NOTE | 2018-06-15 11:34 | CP.PCM.PN ---
Subjective - Date & Time of Evaluation Date of Evaluation: 06/15/18 Time of Evaluation: 09:00 - Subjective Subjective: restless previously, drowsy, arousable, not following commands, on 24 hs video EEG monitoring Objective - Vital Signs/Intake and Output Vital Signs (last 24 hours): Temp Pulse Resp BP Pulse Ox 97.3 F L 90 26 H 105/65 94 L 06/15/18 08:00 06/15/18 10:00 06/15/18 10:00 06/15/18 10:00 06/15/18 10:00 Intake and Output: 06/15/18 06/15/18 06:59 18:59 Intake Total 2365 550 Output Total 600 Balance 1765 550 - Medications Medications: Current Medications Acetaminophen (Tylenol 325mg Tab) 650 mg PO Q4 PRN PRN Reason: Fever >100.4 F Last Admin: 06/13/18 16:18 Dose: 650 mg Dextrose (Dextrose 50% Inj) 0 ml IV STAT PRN; Protocol PRN Reason: Hypoglycemia Protocol Dextrose (Glutose 15) 0 gm PO ONCE PRN; Protocol PRN Reason: Hypoglycemia Protocol Enoxaparin Sodium (Lovenox) 30 mg SC DAILY [facility]; Protocol Last Admin: 06/15/18 08:35 Dose: 30 mg Glucagon (Glucagen Diagnostic Kit) 0 mg IM STAT PRN; Protocol PRN Reason: Hypoglycemia Protocol Acyclovir 500 mg/ Sodium (Chloride) 100 mls @ 100 mls/hr IVPB DAILY [facility]; Protocol Last Admin: 06/15/18 08:37 Dose: 100 mls/hr Trimethoprim/Sulfamethoxazole (200 mg/ Dextrose) 250 mls @ 166.667 mls/hr IVPB Q12@0600,1800 [facility] Last Admin: 06/15/18 05:52 Dose: 166.667 mls/hr Moxifloxacin HCl (Avelox Iv 400mg/250ml Ns) 400 mg in 250 mls @ 250 mls/hr IVPB DAILY@2100 [facility]; Protocol Last Admin: 06/14/18 20:42 Dose: 250 mls/hr Ceftriaxone Sodium 2 gm/ (Sodium Chloride) 100 mls @ 100 mls/hr IVPB Q12@1000,2200 [facility]; Protocol Last Admin: 06/15/18 10:26 Dose: 100 mls/hr Sodium Chloride (Sodium Chloride 0.9%) 1,000 mls @ 150 mls/hr IV .Q6H40M [facility] Stop: 06/16/18 06:10 Last Admin: 06/15/18 06:56 Dose: 150 mls/hr Methylprednisolone (Solu-Medrol) 40 mg IVP Q12 [facility] Last Admin: 06/15/18 08:37 Dose: 40 mg Morphine Sulfate (Morphine) 2 mg IVP Q6 PRN PRN Reason: Pain, moderate (4-7) Last Admin: 06/15/18 02:37 Dose: 2 mg Pantoprazole Sodium (Protonix Inj) 40 mg IVP DAILY [facility] Last Admin: 06/15/18 08:36 Dose: 40 mg Sevelamer HCl (Renagel) 1,600 mg PO TID [facility] Last Admin: 06/15/18 08:36 Dose: Not Given - Labs Labs: 06/15/18 04:30 06/15/18 04:30 PT 14.5 Seconds (9.8-13.1) H 06/13/18 10:42 INR 1.3 06/13/18 10:42 APTT 28.5 Seconds (25.6-37.1) 06/11/18 22:01 - Constitutional Appears: Chronically Ill - Head Exam Head Exam: NORMAL INSPECTION - Eye Exam Eye Exam: PERRL - ENT Exam Additional comments: oral trush - Neck Exam Neck Exam: Normal Inspection - Respiratory Exam Respiratory Exam: Decreased Breath Sounds - Cardiovascular Exam Additional comments: at bases - GI/Abdominal Exam GI & Abdominal Exam: Soft, Normal Bowel Sounds - Extremities Exam Extremities Exam: Normal Inspection - Back Exam Back Exam: NORMAL INSPECTION - Neurological Exam Additional comments: drowsy, arousable, not following commands - Skin Skin Exam: Warm Assessment and Plan (1) Altered mental status Status: Acute (2) HIV (human immunodeficiency virus infection) Status: Acute (3) Fever Status: Acute (4) Pneumonia Status: Acute (5) Severe sepsis Status: Acute (6) Acute renal failure Status: Acute (7) Diabetes mellitus Status: Acute - Assessment and Plan (Free Text) Plan: continue current Atb cooverage, IVF, blood and urine C-S negative, unable to g et sputum. Critical care time: 36 min.
--- NOTE | 2018-06-15 12:48 | PQF ---
PROVIDER RESPONSE TEXT: AIODS REVIEWER QUERY TEXT: HIV Clarification and Associated Conditions HIV (Human immunodeficiency virus) is documented in the medical record. Please specify the type. Kia ble to assign the correct code without documentation even though treating for possible PCP. Such as: -- Acquired immune deficiency syndrome [AIDS] -- Asymptomatic , HIV + -- With current or previous HIV-related condition (please specify related condition) -- Other, please specify The patient's Clinical Indicators include: Found to be HIV +, Treat for PCP and CAP. Absolute CD4 count <20. Rx: Bactrim, Rocephin, Avelox Query created by: Janie Yung on 06/15/2018 10:05 AM Electronically signed by: Kristopher Elilson MD 06/15/2018 12:44 PM
--- NOTE | 2018-06-15 13:51 | CP.PCM.PN ---
Subjective - Date & Time of Evaluation Date of Evaluation: 06/15/18 Time of Evaluation: 13:51 - Subjective Subjective: Patient arousable but not comprehending Vital signs noted to be stable temperature coming down Objective - Vital Signs/Intake and Output Vital Signs (last 24 hours): Temp Pulse Resp BP Pulse Ox 97.3 F L 75 31 H 108/67 98 06/15/18 12:00 06/15/18 12:00 06/15/18 12:00 06/15/18 12:00 06/15/18 12:00 Intake and Output: 06/15/18 06/15/18 06:59 18:59 Intake Total 2365 550 Output Total 600 Balance 1765 550 - Medications Medications: Current Medications Acetaminophen (Tylenol 325mg Tab) 650 mg PO Q4 PRN PRN Reason: Fever >100.4 F Last Admin: 06/13/18 16:18 Dose: 650 mg Dextrose (Dextrose 50% Inj) 0 ml IV STAT PRN; Protocol PRN Reason: Hypoglycemia Protocol Dextrose (Glutose 15) 0 gm PO ONCE PRN; Protocol PRN Reason: Hypoglycemia Protocol Glucagon (Glucagen Diagnostic Kit) 0 mg IM STAT PRN; Protocol PRN Reason: Hypoglycemia Protocol Acyclovir 500 mg/ Sodium (Chloride) 100 mls @ 100 mls/hr IVPB DAILY [facility]; Protocol Last Admin: 06/15/18 08:37 Dose: 100 mls/hr Trimethoprim/Sulfamethoxazole (200 mg/ Dextrose) 250 mls @ 166.667 mls/hr IVPB Q12@0600,1800 [facility] Last Admin: 06/15/18 05:52 Dose: 166.667 mls/hr Moxifloxacin HCl (Avelox Iv 400mg/250ml Ns) 400 mg in 250 mls @ 250 mls/hr IVPB DAILY@2100 [facility]; Protocol Last Admin: 06/14/18 20:42 Dose: 250 mls/hr Ceftriaxone Sodium 2 gm/ (Sodium Chloride) 100 mls @ 100 mls/hr IVPB Q12@1000,2200 [facility]; Protocol Last Admin: 06/15/18 10:26 Dose: 100 mls/hr Sodium Chloride (Sodium Chloride 0.9%) 1,000 mls @ 150 mls/hr IV .Q6H40M [facility] Stop: 06/16/18 06:10 Last Admin: 06/15/18 06:56 Dose: 150 mls/hr Methylprednisolone (Solu-Medrol) 40 mg IVP Q12 [facility] Last Admin: 06/15/18 08:37 Dose: 40 mg Morphine Sulfate (Morphine) 2 mg IVP Q6 PRN PRN Reason: Pain, moderate (4-7) Last Admin: 06/15/18 02:37 Dose: 2 mg Pantoprazole Sodium (Protonix Inj) 40 mg IVP DAILY [facility] Last Admin: 06/15/18 08:36 Dose: 40 mg Sevelamer HCl (Renagel) 1,600 mg PO TID [facility] Last Admin: 06/15/18 08:36 Dose: Not Given - Labs Labs: 06/15/18 04:30 06/15/18 04:30 PT 14.5 Seconds (9.8-13.1) H 06/13/18 10:42 INR 1.3 06/13/18 10:42 APTT 28.5 Seconds (25.6-37.1) 06/11/18 22:01 - Constitutional Appears: No Acute Distress - Eye Exam Eye Exam: Conjunctival injection - ENT Exam ENT Exam: Mucous Membranes Moist - Neck Exam Neck Exam: absent: Lymphadenopathy - Respiratory Exam Respiratory Exam: NORMAL BREATHING PATTERN. absent: Chest Wall Tenderness - Cardiovascular Exam Cardiovascular Exam: absent: Gallop, JVD, Rubs - GI/Abdominal Exam GI & Abdominal Exam: Soft, Normal Bowel Sounds - Extremities Exam Extremities Exam: absent: Calf Tenderness - Back Exam Back Exam: absent: CVA tenderness (L), CVA tenderness (R) - Neurological Exam Neurological Exam: Altered - Skin Skin Exam: absent: Cyanosis Assessment and Plan (1) Acute renal failure Assessment & Plan: Patient appears to have acute renal failure related to HIV or sepsis or combination Sepsis patient spiking fever last 2 days however his temperature coming down today possible from pneumonia Hyperphosphatemia Hypercalcemia corrected Encephalopathy Metabolic acidosis Plan Add sodium bicarbonate 2 tablets 3 times a day Continue gentle hydration Kidney function continued to improve Antibiotics as per renal doses Neurology follow-up As per primary team and intensive care unit Status: Acute (2) HIV (human immunodeficiency virus infection) Status: Acute
--- NOTE | 2018-06-15 13:59 | CP.PCM.PN ---
Subjective - Date & Time of Evaluation Date of Evaluation: 06/15/18 Time of Evaluation: 09:00 - Subjective Subjective: less febrile still confused needs LP [facility] in order to start HAART RX- Cant start HAART rx if pt has Cryptococcal meningitis and neg serum Ag does not rule it out ) Objective - Vital Signs/Intake and Output Vital Signs (last 24 hours): Temp Pulse Resp BP Pulse Ox 97.3 F L 75 31 H 108/67 98 06/15/18 12:00 06/15/18 12:00 06/15/18 12:00 06/15/18 12:00 06/15/18 12:00 Intake and Output: 06/15/18 06/15/18 06:59 18:59 Intake Total 2365 550 Output Total 600 Balance 1765 550 - Medications Medications: Current Medications Acetaminophen (Tylenol 325mg Tab) 650 mg PO Q4 PRN PRN Reason: Fever >100.4 F Last Admin: 06/13/18 16:18 Dose: 650 mg Dextrose (Dextrose 50% Inj) 0 ml IV STAT PRN; Protocol PRN Reason: Hypoglycemia Protocol Dextrose (Glutose 15) 0 gm PO ONCE PRN; Protocol PRN Reason: Hypoglycemia Protocol Glucagon (Glucagen Diagnostic Kit) 0 mg IM STAT PRN; Protocol PRN Reason: Hypoglycemia Protocol Acyclovir 500 mg/ Sodium (Chloride) 100 mls @ 100 mls/hr IVPB DAILY [facility]; Protocol Last Admin: 06/15/18 08:37 Dose: 100 mls/hr Trimethoprim/Sulfamethoxazole (200 mg/ Dextrose) 250 mls @ 166.667 mls/hr IVPB Q12@0600,1800 [facility] Last Admin: 06/15/18 05:52 Dose: 166.667 mls/hr Moxifloxacin HCl (Avelox Iv 400mg/250ml Ns) 400 mg in 250 mls @ 250 mls/hr IVPB DAILY@2100 [facility]; Protocol Last Admin: 06/14/18 20:42 Dose: 250 mls/hr Ceftriaxone Sodium 2 gm/ (Sodium Chloride) 100 mls @ 100 mls/hr IVPB Q12@1000,2200 [facility]; Protocol Last Admin: 06/15/18 10:26 Dose: 100 mls/hr Sodium Chloride (Sodium Chloride 0.9%) 1,000 mls @ 150 mls/hr IV .Q6H40M [facility] Stop: 06/16/18 06:10 Last Admin: 06/15/18 06:56 Dose: 150 mls/hr Methylprednisolone (Solu-Medrol) 40 mg IVP Q12 [facility] Last Admin: 06/15/18 08:37 Dose: 40 mg Morphine Sulfate (Morphine) 2 mg IVP Q6 PRN PRN Reason: Pain, moderate (4-7) Last Admin: 06/15/18 02:37 Dose: 2 mg Pantoprazole Sodium (Protonix Inj) 40 mg IVP DAILY [facility] Last Admin: 06/15/18 08:36 Dose: 40 mg Sevelamer HCl (Renagel) 1,600 mg PO TID [facility] Last Admin: 06/15/18 08:36 Dose: Not Given - Labs Labs: 06/15/18 04:30 06/15/18 04:30 PT 14.5 Seconds (9.8-13.1) H 06/13/18 10:42 INR 1.3 06/13/18 10:42 APTT 28.5 Seconds (25.6-37.1) 06/11/18 22:01 - Constitutional Appears: Confused, Cachectic, Chronically Ill - Head Exam Head Exam: NORMOCEPHALIC - Eye Exam Eye Exam: absent: Scleral icterus - ENT Exam ENT Exam: Mucous Membranes Dry - Neck Exam Neck Exam: absent: Lymphadenopathy - Respiratory Exam Respiratory Exam: Decreased Breath Sounds, Prolonged Expiratory Phase, Rhonchi - Cardiovascular Exam Cardiovascular Exam: Tachycardia, REGULAR RHYTHM, +S1, +S2 - GI/Abdominal Exam GI & Abdominal Exam: Distended, Soft. absent: Tenderness - Rectal Exam Rectal Exam: Deferred - Exam Exam: NORMAL INSPECTION - Extremities Exam Extremities Exam: absent: Pedal Edema - Back Exam Back Exam: absent: CVA tenderness (L), CVA tenderness (R) - Neurological Exam Neurological Exam: Alert, Altered, CN II-XII Intact. absent: Oriented x3 - Psychiatric Exam Psychiatric exam: Depressed Assessment and Plan (1) Acute renal failure Status: Acute (2) Altered mental status Status: Acute (3) Diabetes mellitus Status: Acute (4) HIV (human immunodeficiency virus infection) Status: Acute (5) Pneumonia Status: Acute - Assessment and Plan (Free Text) Assessment: 67 yo male admitted to [facility] with confusional state- brought to ER after being found in [place] apartment Found to have renal failure and referred for ID eval for newly dx HIV+ needs LP [facility] in order to start HAART RX- Cant start HAART rx if pt has Cryptococcal meningitis and neg serum Ag does not rule it out ) cont empiric IV antibiotics
[2018-06-15] MEDS ORDERED: Midazolam 2 MG/2 ML VIAL ONE (16:10)
[2018-06-15] MEDS ORDERED: Propofol 10 mg/ml 3,000 MG/300 ML VIAL ONE (16:11)
[2018-06-15] MEDS: Propofol 10 mg/ml 1,000 MG/100 ML VIAL IV SCH ×2 (16:30→23:41)
--- NOTE | 2018-06-15 16:30 | PCM.ANES ---
Anesthesia Emergent Intubation - Diagnosis Working Diagnosis:: Respiratory Failure - Intubation Attempts Previous Number of Intubation Attempts:: 0 - Pre-Intubation Vital Signs Blood Pressure: 117/70 Heart Rate: 120 Respiratory Rate: 50 O2 Sat: 90 FIO2: 80 Oxygen Delivery Method: Non-Rebreather Level Of Consciousness: Combative, Inappropriate, Restless Intubation Meds Given: Versed, Propofol - Airway Management Oropharyngeal Area Suctioned: No PreOxygenation: 100 Inhalation: No Rapid Sequence: No Cricoid Pressure: Yes Possible Aspiration: No - Method of Intubation Intubation Method: Oral ETT ETT Size: 8 Lipline@: 23 Easy: Yes Atramatic: Yes - Intubation Devices Medhat Blade Size Used: 3 [place]da Forcepts Used: No [place] Scope Used: No Fiber Optic Scope: No - Placement Confirmation Breath Sounds Present & Equal Bilaterally: Yes Gurgling Sounds Not Audible at Epigastrum: Yes Positive EtCO2: Yes Portable CXR: Yes Recommendations: Ventilator - Post-Intubation Vital Signs Blood Pressure: 112/63 Heart Rate: 96 Respiratory Rate: 14 O2 Sat: 100 FIO2: 100
[2018-06-15] MEDS ORDERED: Midazolam 2 MG/2 ML VIAL IV ONE (16:49)
[2018-06-15] MEDS ORDERED: Sodium Chloride 3% for Inhalation 4 ML VIAL.NEB IH PRN (16:51)
--- NOTE | 2018-06-15 17:30 | RAD ---
Date of service: 06/15/2018 PROCEDURE: CHEST RADIOGRAPH, 1 VIEW HISTORY: s/p intubation COMPARISON: 06/14/2018 FINDINGS: LUNGS: Subtle diffuse pulmonary alveolar opacity. Possible bilateral pneumonia. Follow-up advised. PLEURA: No pneumothorax or pleural fluid seen. CARDIOVASCULAR: New ET tube positioned with its tip approximately 3 cm above the tracheal cassie. Right PICC catheter unchanged. Normal. OSSEOUS STRUCTURES: No significant abnormalities. VISUALIZED UPPER ABDOMEN: Normal. OTHER FINDINGS: None. IMPRESSION: Hazy bilateral pulmonary alveolar opacity. Possible bilateral pneumonia. New ET tube appropriately positioned.
[2018-06-15 18:59] LABS: ABG ALLEN TEST YES; ARTERIAL BLOOD GAS HCO3 15.6 mmol/L (21-28); ARTERIAL BLOOD GAS HEMOGLOBIN 9.1 g/dL (11.7-17.4); ARTERIAL BLOOD GAS O2 CAPACITY 12.6 mL/dL (16-24); ARTERIAL BLOOD GAS O2 CONTENT 12.5 ML/dL (15-23); ARTERIAL BLOOD GAS O2 SAT 99.3 % (95-98); ARTERIAL BLOOD GAS PCO2 22 mm/Hg (35-45); ARTERIAL BLOOD GAS PH 7.35 (7.35-7.45); ARTERIAL BLOOD GAS PO2 87 mm/Hg (80-100); ARTERIAL BLOOD GAS TCO2 12.8 mmol/L (22-28)
[2018-06-15] MEDS: Moxifloxacin IV 400mg/250ml NS 400 MG/250 ML BAG IVPB SCH (22:06)
--- NOTE | 2018-06-15 22:57 | PN ---
DATE: 06/15/2018 CRITICAL CARE PROGRESS NOTE LOCATION: The patient in ICU, bed 423. Time spent 40 minutes. The patient is seen and evaluated at the bedside. Case was discussed in multidisciplinary ICU rounds this morning. Past medical, surgical, family and social history noted as documented in the chart. SUBJECTIVE: A 67-year-old male with history significant for hypertension, hyperlipidemia and anxiety. Admitted with altered mental status. Noted to be HIV positive. CT head, no acute intracranial abnormality. MRI of the brain pending. CT chest showed upper lobe heterogeneous ground-glass opacity, lower lobe reticular interstitial infiltrates with minimal patchy consolidation at the lung base lower lobes, possible infectious versus inflammatory etiology. Seen by ID consult. Being treated with ceftriaxone, moxifloxacin, trimethoprim and sulphamethoxazole for suspected PCP. Seen by neurology consult. Video-assisted encephalogram in progress. Awaiting spinal tap after MRI is completed. Overnight, remains confused, agitated at times, requiring sedation. This morning alert, awake but confused. PHYSICAL EXAMINATION: VITAL SIGNS: Temperature 97.3, heart rate 120/79, mean arterial pressure 92, respiratory rate 20 to 31, saturation 98% on high-flow nasal oxygen 15 L. Intake 5022, output 1400, positive balance 3622. Weight 110 pounds. HEAD, EYES, EARS, NOSE AND THROAT: Pupils are reactive. Conjunctivae pink. Sclerae white. NECK: Supple. CHEST: Bilateral breath sounds, diminished in intensity. Scattered rhonchi. HEART: Rhythm regular. S1 and S2 normal. ABDOMEN: Bowel sounds are present. Soft. NEUROLOGIC: Motor function intact. Remains confused. CURRENT MEDICATIONS: Tylenol 650 mg every 4 hours p.r.n. for temperature more than 100.4, ceftriaxone 2 g IV every 12 hours, Solu-Medrol 40 mg IV every 12 hours, morphine 2 mg IV every 6 hours p.r.n., Avelox 400 mg IV daily, Protonix 40 mg IV daily, Renagel 1600 mg p.o. three times daily, sodium bicarbonate 650 mg p.o. every 8 hours, sodium chloride at 150 mL per hour, trimethoprim with sulphamethoxazole every 12 hours. LABORATORY DATA: WBC 12.3, hemoglobin 10.3, hematocrit 31.4, MCV 82.6, platelet count 187, neutrophils 91.5, lymphocytes 4, monocytes 4.3. PT 14.5, INR 1.3. ABG: The pH of 7.37, pCO2 of 22, pO2 of 54. SMA-7: Sodium 148, potassium 4.1, chloride 121, CO2 of 13, blood urea nitrogen 47, creatinine 2.3, random glucose 127, calcium 7.4, phosphorus 3.7, magnesium 1.5. Total bilirubin 0.3, AST 45, ALT 25, alkaline phosphatase 76, total protein 5.9, albumin 2.5. Procalcitonin 1.58. Ammonia level less than 9. Folate . Vitamin B12 more than 1000. Urinalysis: Wbc's 10, bacteria rare. Urine random, total protein 22, urine creatinine 185.5. Toxicology negative. DINO screen negative. Percentage CD3 cells 73, absolute CD3 count 818, percentage CD cells 62, absolute CD8 count 460. Blood culture, no growth reported. Urine culture, no growth reported. Chest x-ray done on 06/14/2018, ill-defined patchy opacity, bilateral perihilar distribution. New right PICC catheter in place. IMPRESSION AND PLAN: 1. Neuro: Septic toxic metabolic encephalopathy. CT head negative. MRI pending. EEG in progress. Suspected central nervous system infection. 2. Pulmonary: Hypoxic respiratory insufficiency. 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 On Bactrim.closel monitor respiratory status, daniela maharaj need ventillatory support 3. Cardiac: Normotensive. Telemetry, sinus rhythm. 4. Hematology: Leukocytosis secondary to steroid. Hemoglobin and hematocrit are stable. Platelet count is stable. 5. Endocrine: No hyperglycemia. Blood sugar 123. 6. Renal: Acute on chronic renal failure, related to human immunodeficiency virus infection and/or sepsis. 7. Gastrointestinal: No acute abnormalities. Liver enzymes within normal limits. Once the MRI of the brain is completed, we will do this spinal tapping as per Neurology, and then we will start on the antiviral medications as noted by infectious disease consult. Alvaro Ken MD [facility]
[2018-06-16 05:15] LABS: ABG ALLEN TEST YES; ARTERIAL BLOOD GAS HCO3 15.4 mmol/L (21-28); ARTERIAL BLOOD GAS HEMOGLOBIN 9.2 g/dL (11.7-17.4); ARTERIAL BLOOD GAS O2 CAPACITY 12.9 mL/dL (16-24); ARTERIAL BLOOD GAS O2 SAT 100.4 % (95-98); ARTERIAL BLOOD GAS PCO2 25 mm/Hg (35-45); ARTERIAL BLOOD GAS PH 7.31 (7.35-7.45); ARTERIAL BLOOD GAS PO2 128 mm/Hg (80-100); ARTERIAL BLOOD GAS TCO2 13.4 mmol/L (22-28)
[2018-06-16] MEDS: Sulfamethoxazole/Trimethoprim 200 MG in Dextrose 5% In Water 250 ML IVPB SCH ×2 (05:49→17:17)
[2018-06-16 06:59] LABS: HEMOGLOBIN 9.4 g/dL (12.0-18.0); MEAN CELL VOLUME 83.1 fl (80.0-94.0); MEAN CORPUSCULAR HEMOGLOBIN 27.7 pg (27.0-31.0); MEAN CORPUSCULAR HGB CONC 33.3 g/dL (33.0-37.0); RBC 3.39 Mil/uL (4.40-5.90); RED CELL DISTRIBUTION WIDTH 16.5 % (11.5-14.5); WHITE BLOOD COUNT 10.5 K/uL (4.8-10.8)
[2018-06-16 07:04] LABS: ALB/GLOB RATIO 0.7 (1.0-2.1); ALBUMIN 2.2 g/dL (3.5-5.0); ALT/SGPT 25 U/L (21-72); AST/SGOT 49 U/L (17-59); BLOOD UREA NITROGEN 36 mg/dl (9-20); CALCIUM 7.1 mg/dL (8.4-10.2); GFR NON-AFRICAN AMERICAN 34
[2018-06-16] MEDS: MethylPREDNISolone 40 mg Vial IVP SCH ×2 (09:03→21:50)
[2018-06-16] MEDS: cefTRIAXone 2 GM in Sodium Chloride 0.9% 100 ML IVPB SCH ×2 (09:13→21:47)
--- NOTE | 2018-06-16 10:31 | RAD ---
Date of service: 06/16/2018 PROCEDURE: CHEST RADIOGRAPH, 1 VIEW HISTORY: Pt on a vent; daily confirmation of ETT placement COMPARISON: Chest radiograph dated 06/15/2018. FINDINGS: LUNGS: Worsening pulmonary vascular congestion/edema more confluent airspace opacities in the right lower lung. PLEURA: No pneumothorax or pleural fluid seen. CARDIOVASCULAR: Aortic atherosclerotic calcifications. Cardiomediastinal silhouette stably enlarged. OSSEOUS STRUCTURES: Unchanged. VISUALIZED UPPER ABDOMEN: Normal. OTHER FINDINGS: Endotracheal and enteric tubes, unchanged. Right upper extremity PICC, unchanged. IMPRESSION: Stable tubes and lines. Worsening pulmonary vascular congestion/edema with more confluent airspace opacities in the right lower lung.
[2018-06-16] MEDS: Potassium Ch 20mEq in D5-1/2NS 1,000 ML IV SCH (12:27)
[2018-06-16] MEDS ORDERED: Enoxaparin 40 mg Syringe SC SCH (13:30)
[2018-06-16] MEDS ORDERED: Propofol 10 mg/ml 1,000 MG/100 ML VIAL IV SCH (14:45)
[2018-06-16] MEDS: Enoxaparin 30 mg Syringe SC SCH (16:14)
--- NOTE | 2018-06-16 17:34 | CP.PCM.PN ---
Subjective - Date & Time of Evaluation Date of Evaluation: 06/16/18 Time of Evaluation: 17:10 - Subjective Subjective: F/U Respiratory failure Intubated Objective - Vital Signs/Intake and Output Vital Signs (last 24 hours): Temp Pulse Resp BP Pulse Ox 98.3 F 86 23 100/62 100 06/16/18 16:00 06/16/18 17:00 06/16/18 17:00 06/16/18 17:00 06/16/18 17:00 Intake and Output: 06/16/18 06/16/18 06:59 18:59 Intake Total 2767 180 Output Total 650 Balance 2117 180 - Medications Medications: Current Medications Acetaminophen (Tylenol 325mg Tab) 650 mg PO Q4 PRN PRN Reason: Fever >100.4 F Last Admin: 06/13/18 16:18 Dose: 650 mg Dextrose (Dextrose 50% Inj) 0 ml IV STAT PRN; Protocol PRN Reason: Hypoglycemia Protocol Dextrose (Glutose 15) 0 gm PO ONCE PRN; Protocol PRN Reason: Hypoglycemia Protocol Enoxaparin Sodium (Lovenox) 30 mg SC DAILY [facility]; Protocol Last Admin: 06/16/18 16:14 Dose: 30 mg Glucagon (Glucagen Diagnostic Kit) 0 mg IM STAT PRN; Protocol PRN Reason: Hypoglycemia Protocol Trimethoprim/Sulfamethoxazole (200 mg/ Dextrose) 250 mls @ 166.667 mls/hr IVPB Q12@0600,1800 [facility] Last Admin: 06/16/18 17:17 Dose: 166.667 mls/hr Moxifloxacin HCl (Avelox Iv 400mg/250ml Ns) 400 mg in 250 mls @ 250 mls/hr IVPB DAILY@2100 [facility]; Protocol Last Admin: 06/15/18 22:06 Dose: 250 mls/hr Ceftriaxone Sodium 2 gm/ (Sodium Chloride) 100 mls @ 100 mls/hr IVPB Q12@10 00,2200 [facility]; Protocol Last Admin: 06/16/18 09:13 Dose: 100 mls/hr Potassium Chloride/Dextrose/Sod Cl (Potassium Chl 20 Meq In D5-1/2ns) 1,000 mls @ 80 mls/hr IV .[id number] [facility] Stop: 06/17/18 10:52 Last Admin: 06/16/18 12:27 Dose: 80 mls/hr Propofol (Diprivan) 1,000 mg in 100 mls @ 1.671 mls/hr IV .Q24H [facility]; Protocol Stop: 06/17/18 14:31 Methylprednisolone (Solu-Medrol) 40 mg IVP Q12 [facility] Last Admin: 06/16/18 09:03 Dose: 40 mg Pantoprazole Sodium (Protonix Inj) 40 mg IVP DAILY [facility] Last Admin: 06/16/18 09:01 Dose: 40 mg Propofol (Diprivan) 1,000 mg IV .TITRATE [facility] Sevelamer HCl (Renagel) 1,600 mg PO TID [facility] Last Admin: 06/16/18 16:14 Dose: Not Given Sodium Bicarbonate (Sodium Bicarbonate Tab) 650 mg PO Q8 [facility] Last Admin: 06/16/18 16:14 Dose: 650 mg - Labs Labs: 06/16/18 04:30 06/16/18 04:30 PT 14.5 Seconds (9.8-13.1) H 06/13/18 10:42 INR 1.3 06/13/18 10:42 APTT 28.5 Seconds (25.6-37.1) 06/11/18 22:01 - Constitutional Appears: Chronically Ill - Head Exam Head Exam: NORMAL INSPECTION - Eye Exam Eye Exam: PERRL - ENT Exam Additional comments: Oral thrush . ETT / OGT - Neck Exam Neck Exam: Normal Inspection - Respiratory Exam Respiratory Exam: Decreased Breath Sounds (at bases) - Cardiovascular Exam Cardiovascular Exam: REGULAR RHYTHM - GI/Abdominal Exam GI & Abdominal Exam: Soft, Normal Bowel Sounds - Extremities Exam Extremities Exam: Normal Inspection - Back Exam Back Exam: NORMAL INSPECTION - Neurological Exam Additional comments: Sedated, arousable, not following commands - Skin Skin Exam: Warm Assessment and Plan (1) Respiratory failure Status: Acute (2) Altered mental status Status: Acute (3) HIV (human immunodeficiency virus infection) Status: Acute (4) Fever Status: Acute (5) Pneumonia Status: Acute (6) Severe sepsis Status: Acute (7) Acute renal failure Status: Acute (8) Diabetes mellitus Status: Acute - Assessment and Plan (Free Text) Plan: Continue ventilatory support, current abx coverage, for Bronchoscopy on Monday. Critical care time: 35 min.
--- NOTE | 2018-06-16 19:43 | PN ---
DATE: 06/16/2018 CRITICAL CARE PROGRESS NOTE LOCATION: ICU, bed 423. TIME SPENT: 50 minutes. SUBJECTIVE: The patient is seen, evaluated at the bedside. Past medical, surgical, family and social history reviewed. This is a 67-year-old male with hypertension, hyperlipidemia, anxiety disorder, admitted with altered mental status, noted to be HIV positive. Initial CT head showed no acute abnormality. MRI of the brain pending. CT chest showed upper lobe heterogeneous ground-glass opacity and lower lobe reticular interstitial infiltrates with a minimal patchy consolidation at the lung base, seen by ID consult and being treated with ceftriaxone, moxifloxacin, trimethoprim/sulfamethoxazole and seen by neurology consult. Video-assisted encephalogram done, report pending. Awaiting for a spinal tap after MRI is completed. Overnight, the patient remained more confused and agitated at times. Noted labored respirations intubated, placed on mechanical ventilation on AC/PRBC rate 12, tidal volume 400, FIO2 100%, PEEP of 5, observed rate 21, observed tidal volume 500, minute ventilation 10.2 liters, saturation 100%. Peak airway pressure 8, end-tidal CO2 of 17. Sedated on Diprivan drip. PHYSICAL EXAMINATION: VITAL SIGNS: Temperature 98, heart rate 84, blood pressure 110/74, respiratory rate 16 to 20, saturation 100%. Intake 4354, output 1300, positive balance in the last 24 hours 3054. Cumulative positive balance more than 6 liters. Weight 122 pounds. HEAD, EYES, EARS, NOSE AND THROAT: Pupils are 3-4 mm, reactive. Sclerae anicteric. Endotracheal tube in place. No secretion noted. CHEST: Bilateral breath sounds. Scattered rhonchi. HEART: Rhythm regular. S1 and S2 normal intensity. No S3, S4 or gallop. ABDOMEN: Bowel sounds present. Soft. No distention. No tenderness. EXTREMITIES: Trace edema. Capillary refill less than two. NEUROLOGIC: Sedated on Diprivan drip. CURRENT MEDICATIONS: Ceftriaxone 2 g IV every 12 hours, moxifloxacin 400 mg IV daily, trimethoprim/sulfamethoxazole 200 mg twice daily, sodium bicarbonate 650 mg NG via every 8 hours, Renagel 1600 mg p.o. three times daily on hold, D5 half-normal with 20 mEq of KCl at 80 mL/hour, Protonix 40 IV daily, morphine 2 mg IV every 6 hours p.r.n. for pain, Solu-Medrol 40 mg IV every 12 hours, Accu-Chek with regular insulin coverage, Tylenol 650 every 4 hours p.r.n. for fever more than 100.4. LABORATORY DATA: WBC 10.5, hemoglobin 9.4, hematocrit 28.2, platelet count 173. ABG: pH of 7.31, pCO2 of 25, pO2 of 128, on AC/PRBC rate 12, tidal volume 400, FIO2 100%, PEEP of 5, FIO2 reduced to 80%. SMA-7: Sodium 147, potassium 4.1, chloride 101, CO2 of 14, blood urea nitrogen 36, creatinine 2, random glucose 133-167, calcium 7.1, total bilirubin less than 0.1, AST 49, ALT 25, alkaline phosphatase 68. Total protein of 5.3, albumin of 2.2. Lipid profile pending. Urinalysis, microscopic WBC 10. Urine total protein at 22. Toxicology screen, urine drug screen negative. QuantiFERON Gold TB test negative. IMPRESSION: 1. Neurologic: Septic toxic metabolic encephalopathy. CT head negative. MRI pending. EEG report pending. Suspected central nervous system infarction. Currently sedated on Diprivan drip, comfortable on the ventilator. 2. Pulmonary: Hypoxic respiratory failure with wide A-a gradient. 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 Currently on Bactrim, steroid moxifloxacin and Rocephin. 3. Cardiac: Normotensive. Telemetry sinus rhythm. 4. Hematology: Leukocytosis resolved. Hemoglobin and hematocrit stable, normal platelet count. 5. Infectious Diseases: Human immunodeficiency virus positive. 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 Appreciate Infectious Disease followup. Continue current treatment with antibiotics and steroids. Keep head of bed 30 degrees up. 6. Gastrointestinal: Liver enzymes within normal limits. We will initiate feeding through the nasogastric tube. 7. Continue deep vein thrombosis prophylaxis. Alvaro Ken MD
[2018-06-16] MEDS: Moxifloxacin IV 400mg/250ml NS 400 MG/250 ML BAG IVPB SCH (21:46)
[2018-06-17] MEDS: Propofol 10 mg/ml Inj (100 ml) IV SCH ×2 (01:51→14:39)
[2018-06-17 05:00] LABS: ABG ALLEN TEST YES; ARTERIAL BLOOD GAS HCO3 15.4 mmol/L (21-28); ARTERIAL BLOOD GAS HEMOGLOBIN 9.1 g/dL (11.7-17.4); ARTERIAL BLOOD GAS O2 CAPACITY 13.4 mL/dL (16-24); ARTERIAL BLOOD GAS O2 CONTENT 13.5 ML/dL (15-23); ARTERIAL BLOOD GAS O2 SAT 100.6 % (95-98); ARTERIAL BLOOD GAS PCO2 25 mm/Hg (35-45); ARTERIAL BLOOD GAS PH 7.31 (7.35-7.45); ARTERIAL BLOOD GAS PO2 323 mm/Hg (80-100); ARTERIAL BLOOD GAS TCO2 13.4 mmol/L (22-28)
[2018-06-17] MEDS: Sulfamethoxazole/Trimethoprim 200 MG in Dextrose 5% In Water 250 ML IVPB SCH ×2 (06:18→21:11)
[2018-06-17 06:26] LABS: MEAN CELL VOLUME 82.3 fl (80.0-94.0); MEAN CORPUSCULAR HEMOGLOBIN 27.2 pg (27.0-31.0); MEAN CORPUSCULAR HGB CONC 33.1 g/dL (33.0-37.0); RBC 3.31 Mil/uL (4.40-5.90); RED CELL DISTRIBUTION WIDTH 16.8 % (11.5-14.5); WHITE BLOOD COUNT 9.3 K/uL (4.8-10.8)
[2018-06-17 06:34] LABS: ALB/GLOB RATIO 0.7 (1.0-2.1); ALBUMIN 2.2 g/dL (3.5-5.0); ALT/SGPT 21 U/L (21-72); AST/SGOT 39 U/L (17-59); BLOOD UREA NITROGEN 33 mg/dl (9-20); CALCIUM 7.1 mg/dL (8.4-10.2); GFR NON-AFRICAN AMERICAN 32
[2018-06-17] MEDS: cefTRIAXone 2 GM in Sodium Chloride 0.9% 100 ML IVPB SCH ×2 (09:16→21:12)
[2018-06-17] MEDS: MethylPREDNISolone 40 mg Vial IVP SCH ×2 (09:18→21:13)
[2018-06-17] MEDS: Enoxaparin 30 mg Syringe SC SCH (09:20)
--- NOTE | 2018-06-17 11:15 | RAD ---
Date of service: 06/17/2018 PROCEDURE: CHEST RADIOGRAPH, 1 VIEW HISTORY: ETT daily placement confirmation COMPARISON: Chest radiograph dated 06/16/2018. FINDINGS: LUNGS: Mild interval improvement of pulmonary vascular congestion/edema. No focal consolidation. PLEURA: Slight indistinctness of both hemidiaphragms may be secondary to small amount of pleural fluid. No appreciable pneumothorax. CARDIOVASCULAR: No aortic atherosclerotic calcification present. Normal. OSSEOUS STRUCTURES: Changed. VISUALIZED UPPER ABDOMEN: Normal. OTHER FINDINGS: Endotracheal and enteric tubes, unchanged. Right upper extremity PICC, unchanged. IMPRESSION: Stable tubes and lines. Mild improvement in pulmonary vascular congestion/edema. Questionable small bilateral pleural effusions.
[2018-06-17] MEDS: Potassium Ch 20mEq in D5-1/2NS 1,000 ML IV SCH (12:01)
--- NOTE | 2018-06-17 13:40 | CP.PCM.PN ---
Subjective - Date & Time of Evaluation Date of Evaluation: 06/17/18 Time of Evaluation: 07:00 - Subjective Subjective: intubated encephalopathic awaiting LP to start HAART Rx all cultures negative Objective - Vital Signs/Intake and Output Vital Signs (last 24 hours): Temp Pulse Resp BP Pulse Ox 98.6 F 104 H 25 H 136/82 100 06/17/18 13:00 06/17/18 13:00 06/17/18 13:00 06/17/18 13:00 06/17/18 13:00 Intake and Output: 06/17/18 06/17/18 06:59 18:59 Intake Total 1880 1040 Output Total 700 Balance 1180 1040 - Medications Medications: Current Medications Acetaminophen (Tylenol 325mg Tab) 650 mg PO Q4 PRN PRN Reason: Fever >100.4 F Last Admin: 06/13/18 16:18 Dose: 650 mg Dextrose (Dextrose 50% Inj) 0 ml IV STAT PRN; Protocol PRN Reason: Hypoglycemia Protocol Dextrose (Glutose 15) 0 gm PO ONCE PRN; Protocol PRN Reason: Hypoglycemia Protocol Enoxaparin Sodium (Lovenox) 30 mg SC DAILY [facility]; Protocol Last Admin: 06/17/18 09:20 Dose: 30 mg Glucagon (Glucagen Diagnostic Kit) 0 mg IM STAT PRN; Protocol PRN Reason: Hypoglycemia Protocol Moxifloxacin HCl (Avelox Iv 400mg/250ml Ns) 400 mg in 250 mls @ 250 mls/hr IVPB DAILY@2100 [facility]; Protocol Last Admin: 06/16/18 21:46 Dose: 250 mls/hr Propofol (Diprivan) 1,000 mg in 100 mls @ 1.671 mls/hr IV .Q24H [facility]; Protocol Stop: 06/17/18 14:31 Methylprednisolone (Solu-Medrol) 40 mg IVP Q12 [facility] Last Admin: 06/17/18 09:18 Dose: 40 mg Pantoprazole Sodium (Protonix Inj) 40 mg IVP DAILY [facility] Last Admin: 06/17/18 09:20 Dose: 40 mg Propofol (Diprivan) 1,000 mg IV .TITRATE [facility] Last Admin: 06/17/18 01:51 Dose: 1,000 mg Sevelamer HCl (Renagel) 1,600 mg PO TID [facility] Last Admin: 06/17/18 12:02 Dose: 1,600 mg Sodium Bicarbonate (Sodium Bicarbonate Tab) 650 mg PO Q8 [facility] Last Admin: 06/17/18 09:19 Dose: 650 mg - Labs Labs: 06/17/18 05:00 06/17/18 05:00 PT 14.5 Seconds (9.8-13.1) H 06/13/18 10:42 INR 1.3 06/13/18 10:42 APTT 28.5 Seconds (25.6-37.1) 06/11/18 22:01 - Constitutional Appears: Non-toxic, Cachectic, Chronically Ill - Head Exam Head Exam: NORMOCEPHALIC - Eye Exam Eye Exam: PERRL. absent: Scleral icterus - ENT Exam ENT Exam: Mucous Membranes Dry - Neck Exam Neck Exam: absent: Lymphadenopathy - Respiratory Exam Respiratory Exam: Decreased Breath Sounds, Prolonged Expiratory Phase, Rhonchi - Cardiovascular Exam Cardiovascular Exam: REGULAR RHYTHM, +S1, +S2 - GI/Abdominal Exam GI & Abdominal Exam: Distended, Soft. absent: Tenderness - Rectal Exam Rectal Exam: Deferred - Exam Exam: NORMAL INSPECTION - Extremities Exam Extremities Exam: absent: Pedal Edema - Back Exam Back Exam: absent: CVA tenderness (L), CVA tenderness (R) - Neurological Exam Neurological Exam: Altered - Psychiatric Exam Psychiatric exam: Depressed - Skin Skin Exam: Dry Assessment and Plan (1) Acute renal failure Status: Acute (2) Altered mental status Status: Acute (3) Diabetes mellitus Status: Acute (4) HIV (human immunodeficiency virus infection) Status: Acute (5) Pneumonia Status: Acute (6) Encephalopathy Status: Acute - Assessment and Plan (Free Text) Assessment: awaiting LP to start HAART Rx agree with MRI but CT negative for mass lesion- consider IR/ Anesthesi for LP cont empiric IV Acyclovir, antibiotics and PCP rx overall poor prognosis
[2018-06-17] MEDS ORDERED: cefTRIAXone 2,000 MG in PED IV SYRINGE 1 SYR IVPB SCH (13:45)
[2018-06-17] MEDS ORDERED: Tmp-Smz 16 mg-80 mg/ml Inj IVPB SCH (13:45)
[2018-06-17] MEDS ORDERED: cefTRIAXone 2 GM in Sodium Chloride 0.9% 100 ML IVPB SCH (14:00)
--- NOTE | 2018-06-17 17:18 | CP.PCM.PN ---
Subjective - Date & Time of Evaluation Date of Evaluation: 06/17/18 Time of Evaluation: 14:30 - Subjective Subjective: F/U Respiratory failure Intubated, sedated Objective - Vital Signs/Intake and Output Vital Signs (last 24 hours): Temp Pulse Resp BP Pulse Ox 97.4 F L 110 H 22 148/88 99 06/17/18 15:00 06/17/18 15:00 06/17/18 15:00 06/17/18 15:00 06/17/18 15:00 Intake and Output: 06/17/18 06/17/18 06:59 18:59 Intake Total 1880 1300 Output Total 700 Balance 1180 1300 - Medications Medications: Current Medications Acetaminophen (Tylenol 325mg Tab) 650 mg PO Q4 PRN PRN Reason: Fever >100.4 F Last Admin: 06/13/18 16:18 Dose: 650 mg Dextrose (Dextrose 50% Inj) 0 ml IV STAT PRN; Protocol PRN Reason: Hypoglycemia Protocol Dextrose (Glutose 15) 0 gm PO ONCE PRN; Protocol PRN Reason: Hypoglycemia Protocol Enoxaparin Sodium (Lovenox) 30 mg SC DAILY [facility]; Protocol Last Admin: 06/17/18 09:20 Dose: 30 mg Glucagon (Glucagen Diagnostic Kit) 0 mg IM STAT PRN; Protocol PRN Reason: Hypoglycemia Protocol Moxifloxacin HCl (Avelox Iv 400mg/250ml Ns) 400 mg in 250 mls @ 250 mls/hr IVPB DAILY@2100 [facility]; Protocol Last Admin: 06/16/18 21:46 Dose: 250 mls/hr Ceftriaxone Sodium 2 gm/ (Sodium Chloride) 100 mls @ 100 mls/hr IVPB Q12H [facility] Trimethoprim/Sulfamethoxazole (200 mg/ Dextrose) 250 mls @ 125 mls/hr IVPB Q12 [facility] Methylprednisolone (Solu-Medrol) 40 mg IVP Q12 [facility] Last Admin: 06/17/18 09:18 Dose: 40 mg Pantoprazole Sodium (Protonix Inj) 40 mg IVP DAILY [facility] Last Admin: 06/17/18 09:20 Dose: 40 mg Propofol (Diprivan) 1,000 mg IV .TITRATE [facility] Last Admin: 06/17/18 14:39 Dose: 1,000 mg Sevelamer HCl (Renagel) 1,600 mg PO TID [facility] Last Admin: 06/17/18 12:02 Dose: 1,600 mg Sodium Bicarbonate (Sodium Bicarbonate Tab) 650 mg PO Q8 [facility] Last Admin: 06/17/18 09:19 Dose: 650 mg - Labs Labs: 06/17/18 05:00 06/17/18 05:00 PT 14.5 Seconds (9.8-13.1) H 06/13/18 10:42 INR 1.3 06/13/18 10:42 APTT 28.5 Seconds (25.6-37.1) 06/11/18 22:01 - Constitutional Appears: Chronically Ill - Head Exam Head Exam: NORMAL INSPECTION - Eye Exam Eye Exam: PERRL - ENT Exam Additional comments: ETT and OGT in place. - Neck Exam Neck Exam: Normal Inspection - Respiratory Exam Respiratory Exam: Decreased Breath Sounds (at bases) - Cardiovascular Exam Cardiovascular Exam: REGULAR RHYTHM - GI/Abdominal Exam GI & Abdominal Exam: Soft, Normal Bowel Sounds - Extremities Exam Extremities Exam: Normal Inspection Additional comments: PICC line in place - Back Exam Back Exam: NORMAL INSPECTION - Neurological Exam Additional comments: Drowsy, arousable, unable to follows commands. - Skin Skin Exam: Warm Assessment and Plan (1) Respiratory failure Status: Acute (2) Altered mental status Status: Acute (3) HIV (human immunodeficiency virus infection) Status: Acute (4) Fever Status: Acute (5) Pneumonia Status: Acute (6) Severe sepsis Status: Acute (7) Acute renal failure Status: Acute (8) Diabetes mellitus Status: Acute - Assessment and Plan (Free Text) Plan: Continue abx coverage, ventilatory support, for Bronchoscopy in AM. Critical care time: 35 min.
[2018-06-17] MEDS: Moxifloxacin IV 400mg/250ml NS 400 MG/250 ML BAG IVPB SCH (21:10)
[2018-06-17] MEDS: Insulin Lispro (humaLOG) 100 Units/ml Inj SC SCH (21:27)
--- NOTE | 2018-06-17 23:44 | PN ---
DATE: 06/17/2018 CRITICAL CARE PROGRESS NOTE LOCATION: The patient is in ICU, bed 423. TIME SPENT: 40 minutes. SUBJECTIVE: The patient is seen and evaluated at the bedside. Past medical, surgical, family and social history are reviewed. A 67-year-old male with hypertension, hyperlipidemia, anxiety disorder, admitted with altered mental status, noted to be HIV positive. Initial CT head showed no acute abnormality. MRI of the brain pending. CT chest showed upper lobe heterogeneous ground-glass opacity and lower lobe reticular interstitial infiltrates with a minimal patchy consolidation involving lung base. Seen by ID consult and being treated with ceftriaxone, Avelox, and trimethoprim/sulfamethoxazole. Seen by neurology consult. Video-assisted encephalogram done, report pending. Awaiting for a spinal tap after MRI is completed as per neurology consult. Overnight remains intubated, on mechanical ventilation, sedated on Diprivan drip, on AC/PRVC, rate 12, tidal volume 400, FiO2 100%, PEEP of 5, FiO2 reduced to 60% this morning, observed rate 27, observed tidal volume 570, minute ventilation 15.2 L, FiO2 of 60, oxygen saturation 100%, peak airway pressure of 11, end-tidal CO2 of 29. PHYSICAL EXAMINATION: VITAL SIGNS: Temperature 98.6, heart rate 104, blood pressure 136/82, mean arterial pressure 100, oxygen saturation 100%, FiO2 is 60. Intake 3230, output 2000, positive balance 1230. HEAD, EYES, EARS, NOSE AND THROAT: Pupils are reactive. Conjunctivae pink. Sclerae anicteric. Endotracheal tube in place. No secretion noted. CHEST: Bilateral breath sounds. Scattered rhonchi. HEART: Rhythm regular. S1 and S2 normal. No S3 or S4 gallop. No audible murmur. ABDOMEN: Bowel sounds are present. Soft. No distention. No tenderness. EXTREMITIES: Trace edema. Capillary refill less than 2 seconds. NEUROLOGIC: Sedated on Diprivan drip. Alert, awake, on holiday sedation. CURRENT MEDICATIONS: Ceftriaxone 2 g IV every 12 hours, Avelox 400 mg IV daily, trimethoprim/sulfamethoxazole 200 mg twice daily, sodium bicarbonate 650 mg every 8 hours, Renagel 1600 mg p.o. three times daily on hold, D5 half-normal with 20 of KCl at 80 mL per hour, Protonix 40 mg IV daily, morphine 2 mg IV every 6 hours p.r.n., Solu-Medrol 40 mg every 12 hours, Accu-Chek with regular insulin coverage, Tylenol 650 mg every 4 hours p.r.n. for temp more than 100. LABORATORY DATA: WBC 9.3, hemoglobin 9, hematocrit 27.2, platelet count 178. ABG: The pH of 7.31, pCO2 of 25, pO2 of 323, saturation 100.6 on AC 12/400, 100%, PEEP of 5, FiO2 currently reduced to 60%. SMA-7: Sodium 144, potassium 4.2, chloride 118, CO2 of 15, blood urea nitrogen 33, creatinine 2.1, random glucose 187 to 242 mg, calcium 7.1. Total bilirubin less than 0.1, AST 39, ALT 21, alkaline phosphatase 102, total protein 5.4, albumin 2.2. Procalcitonin 1.58. Urine drug screen negative. Chest x-ray, stable tubes and lines, mild improvement in pulmonary vascular congestion/edema. IMPRESSION AND PLAN: 1. Neurologic: Septic toxic metabolic encephalopathy. CT head negative. MRI pending. EEG report pending. Suspected central nervous system infection. Currently sedated on a Diprivan drip. Comfortable on the ventilator. Awake, alert, on holiday sedation. 2. Pulmonary: Hypoxic respiratory failure with wide alveolar-arterial gradient. Chest x-ray shows improvement of the pulmonary vascular congestion. Being treated for suspected Pneumocystis pneumonia. We will continue with Bactrim, steroid, moxifloxacin, and Rocephin. 3. Hematology: Leukocytosis, resolved. Hemoglobin and hematocrit are stable. Normal platelet count. 4. 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 Central nervous system infection. Appreciate infectious disease followup and discussion. Continue current treatment. 5. Gastroenterology: Liver enzymes within normal limits. Continue feeding through the nasogastric tube. Continue deep vein thrombosis prophylaxis. Alvaro Ken MD
[2018-06-18] MEDS: Propofol 10 mg/ml Inj (100 ml) IV SCH ×2 (01:59→22:45)
[2018-06-18 05:46] LABS: ABG ALLEN TEST YES; ARTERIAL BLOOD GAS HCO3 17.2 mmol/L (21-28); ARTERIAL BLOOD GAS HEMOGLOBIN 9.4 g/dL (11.7-17.4); ARTERIAL BLOOD GAS O2 SAT 100.1 % (95-98); ARTERIAL BLOOD GAS PCO2 28 mm/Hg (35-45); ARTERIAL BLOOD GAS PH 7.33 (7.35-7.45); ARTERIAL BLOOD GAS PO2 98 mm/Hg (80-100); ARTERIAL BLOOD GAS TCO2 15.7 mmol/L (22-28)
[2018-06-18] MEDS: Insulin Lispro (humaLOG) 100 Units/ml Inj SC SCH ×4 (05:48→22:07)
[2018-06-18 05:52] LABS: HEMOGLOBIN 8.9 g/dL (12.0-18.0); INR 1.2; MEAN CELL VOLUME 83.2 fl (80.0-94.0); MEAN CORPUSCULAR HEMOGLOBIN 27.5 pg (27.0-31.0); PROTHROMBIN TIME 13.1 Seconds (9.8-13.1); RBC 3.22 Mil/uL (4.40-5.90); RED CELL DISTRIBUTION WIDTH 17.2 % (11.5-14.5); WHITE BLOOD COUNT 7.9 K/uL (4.8-10.8)
[2018-06-18 05:55] LABS: PARTIAL THROMBOPLASTIN TIME 28.9 Seconds (25.6-37.1)
[2018-06-18 06:11] LABS: ALB/GLOB RATIO 0.8 (1.0-2.1); ALBUMIN 2.3 g/dL (3.5-5.0); ALT/SGPT 33 U/L (21-72); AST/SGOT 30 U/L (17-59); BLOOD UREA NITROGEN 37 mg/dl (9-20); CALCIUM 7.1 mg/dL (8.4-10.2); GFR NON-AFRICAN AMERICAN 30
[2018-06-18] MEDS: Sulfamethoxazole/Trimethoprim 200 MG in Dextrose 5% In Water 250 ML IVPB SCH ×2 (08:19→22:50)
[2018-06-18] MEDS: cefTRIAXone 2 GM in Sodium Chloride 0.9% 100 ML IVPB SCH ×2 (08:23→20:30)
[2018-06-18] MEDS: MethylPREDNISolone 40 mg Vial IVP SCH ×2 (08:25→20:15)
--- NOTE | 2018-06-18 09:49 | CP.PCM.PN ---
Subjective - Date & Time of Evaluation Date of Evaluation: 06/18/18 Time of Evaluation: 09:49 - Subjective Subjective: Intubated and sedated Vital signs noted to be stable Objective - Vital Signs/Intake and Output Vital Signs (last 24 hours): Temp Pulse Resp BP Pulse Ox 98.2 F 87 22 121/73 100 06/18/18 08:00 06/18/18 08:00 06/18/18 08:00 06/18/18 08:00 06/18/18 08:00 Intake and Output: 06/18/18 06/18/18 06:59 18:59 Intake Total 1770 Output Total 900 Balance 870 - Medications Medications: Current Medications Acetaminophen (Tylenol 325mg Tab) 650 mg PO Q4 PRN PRN Reason: Fever >100.4 F Last Admin: 06/13/18 16:18 Dose: 650 mg Dextrose (Dextrose 50% Inj) 0 ml IV STAT PRN; Protocol PRN Reason: Hypoglycemia Protocol Dextrose (Glutose 15) 0 gm PO ONCE PRN; Protocol PRN Reason: Hypoglycemia Protocol Enoxaparin Sodium (Lovenox) 30 mg SC DAILY [facility]; Protocol Last Admin: 06/17/18 09:20 Dose: 30 mg Glucagon (Glucagen Diagnostic Kit) 0 mg IM STAT PRN; Protocol PRN Reason: Hypoglycemia Protocol Moxifloxacin HCl (Avelox Iv 400mg/250ml Ns) 400 mg in 250 mls @ 250 mls/hr IVPB DAILY@2100 [facility]; Protocol Last Admin: 06/17/18 21:10 Dose: 250 mls/hr Trimethoprim/Sulfamethoxazole (200 mg/ Dextrose) 250 mls @ 125 mls/hr IVPB Q12 [facility] Last Admin: 06/18/18 08:19 Dose: 125 mls/hr Ceftriaxone Sodium 2 gm/ (Sodium Chloride) 100 mls @ 100 mls/hr IVPB Q12@0900,2100 [facility] Last Admin: 06/18/18 08:23 Dose: 100 mls/hr Insulin Human Lispro (Humalog) 0 units SC Q6H [facility]; Protocol Last Admin: 06/18/18 05:48 Dose: Not Given Methylprednisolone (Solu-Medrol) 40 mg IVP Q12 [facility] Last Admin: 06/18/18 08:25 Dose: 40 mg Pantoprazole Sodium (Protonix Inj) 40 mg IVP DAILY [facility] Last Admin: 06/18/18 08:22 Dose: 40 mg Propofol (Diprivan) 1,000 mg IV .TITRATE [facility] Last Admin: 06/18/18 01:59 Dose: 1,000 mg Sevelamer HCl (Renagel) 1,600 mg PO TID [facility] Last Admin: 06/18/18 08:22 Dose: Not Given Sodium Bicarbonate (Sodium Bicarbonate Tab) 650 mg PO Q8 [facility] Last Admin: 06/18/18 02:05 Dose: Not Given - Labs Labs: 06/18/18 05:47 06/18/18 05:47 PT 13.1 Seconds (9.8-13.1) 06/18/18 05:47 INR 1.2 06/18/18 05:47 APTT 28.9 Seconds (25.6-37.1) 06/18/18 05:47 - Constitutional Appears: No Acute Distress - Eye Exam Eye Exam: Conjunctival injection - ENT Exam ENT Exam: Mucous Membranes Moist - Respiratory Exam Respiratory Exam: absent: Chest Wall Tenderness, Rhonchi - Cardiovascular Exam Cardiovascular Exam: absent: Gallop, JVD, Rubs - GI/Abdominal Exam GI & Abdominal Exam: Soft, Normal Bowel Sounds - Extremities Exam Extremities Exam: absent: Calf Tenderness - Back Exam Back Exam: absent: CVA tenderness (L), CVA tenderness (R) - Neurological Exam Neurological Exam: Altered - Skin Skin Exam: absent: Cyanosis Assessment and Plan (1) Acute renal failure Assessment & Plan: acute renal failure related to HIV or sepsis or combination Sepsis Hyperphosphatemia Hypercalcemia corrected Encephalopathy Metabolic acidosis Respiratory failure Plan Continue sodium bicarbonate oral Continue gentle hydration Kidney function stable for now Antibiotics as per renal doses Neurology follow-up As per primary team and intensive care unit Status: Acute (2) HIV (human immunodeficiency virus infection) Status: Acute
--- NOTE | 2018-06-18 09:54 | RAD ---
Date of service: 06/18/2018 PROCEDURE: CHEST RADIOGRAPH, 1 VIEW HISTORY: Daily ETT placement confirmation COMPARISON: 06/17/2018. FINDINGS: Endotracheal tube terminates 1.5 cm proximal to the cassie. Nasogastric tube terminates in the stomach. The right PICC line terminates in the SVC. LUNGS: The lungs are well inflated. There is moderate pulmonary venous congestion. There is developing airspace disease in the right lower lobe. PLEURA: There are small layering pleural effusions. No new CARDIOVASCULAR: Mild cardiomegaly and prominent central vasculature. No aortic atherosclerotic calcifications present. OSSEOUS STRUCTURES: Within normal limits for the patient's age. VISUALIZED UPPER ABDOMEN: Normal. OTHER FINDINGS: None. IMPRESSION: Little interval change in moderate congestive heart failure. Airspace disease in the right lower lobe may represent atelectasis or developing pneumonia. Follow-up is advised. Stable position of support line and tubes.
--- NOTE | 2018-06-18 10:32 | CP.PCM.PN ---
Subjective - Date & Time of Evaluation Date of Evaluation: 06/18/18 Time of Evaluation: 10:32 - Subjective Subjective: Neuro Follow-Up Note: Mr. Henry was evaluated this afternoon in the ICU. He is intubated and on sedation but restless. He remains on isolation. ROS unobtainable due to pt's condition. Chart reviewed, events noted. Objective - Vital Signs/Intake and Output Vital Signs (last 24 hours): Temp Pulse Resp BP Pulse Ox 98.2 F 87 22 121/73 100 06/18/18 08:00 06/18/18 08:00 06/18/18 08:00 06/18/18 08:00 06/18/18 08:00 Intake and Output: 06/18/18 06/18/18 06:59 18:59 Intake Total 1770 Output Total 900 Balance 870 - Medications Medications: Current Medications Acetaminophen (Tylenol 325mg Tab) 650 mg PO Q4 PRN PRN Reason: Fever >100.4 F Last Admin: 06/13/18 16:18 Dose: 650 mg Dextrose (Dextrose 50% Inj) 0 ml IV STAT PRN; Protocol PRN Reason: Hypoglycemia Protocol Dextrose (Glutose 15) 0 gm PO ONCE PRN; Protocol PRN Reason: Hypoglycemia Protocol Enoxaparin Sodium (Lovenox) 30 mg SC DAILY [facility]; Protocol Last Admin: 06/17/18 09:20 Dose: 30 mg Glucagon (Glucagen Diagnostic Kit) 0 mg IM STAT PRN; Protocol PRN Reason: Hypoglycemia Protocol Moxifloxacin HCl (Avelox Iv 400mg/250ml Ns) 400 mg in 250 mls @ 250 mls/hr IVPB DAILY@2100 [facility]; Protocol Last Admin: 06/17/18 21:10 Dose: 250 mls/hr Trimethoprim/Sulfamethoxazole (200 mg/ Dextrose) 250 mls @ 125 mls/hr IVPB Q12 [facility] Last Admin: 06/18/18 08:19 Dose: 125 mls/hr Ceftriaxone Sodium 2 gm/ (Sodium Chloride) 100 mls @ 100 mls/hr IVPB Q12@0900,2100 [facility] Last Admin: 06/18/18 08:23 Dose: 100 mls/hr Insulin Human Lispro (Humalog) 0 units SC Q6H [facility]; Protocol Last Admin: 06/18/18 05:48 Dose: Not Given Methylprednisolone (Solu-Medrol) 40 mg IVP Q12 [facility] Last Admin: 06/18/18 08:25 Dose: 40 mg Pantoprazole Sodium (Protonix Inj) 40 mg IVP DAILY [facility] Last Admin: 06/18/18 08:22 Dose: 40 mg Propofol (Diprivan) 1,000 mg IV .TITRATE [facility] Last Admin: 06/18/18 01:59 Dose: 1,000 mg Sevelamer HCl (Renagel) 1,600 mg PO TID [facility] Last Admin: 06/18/18 08:22 Dose: Not Given Sodium Bicarbonate (Sodium Bicarbonate Tab) 650 mg PO Q8 [facility] Last Admin: 06/18/18 02:05 Dose: Not Given - Labs Labs: 06/18/18 05:47 06/18/18 05:47 PT 13.1 Seconds (9.8-13.1) 06/18/18 05:47 INR 1.2 06/18/18 05:47 APTT 28.9 Seconds (25.6-37.1) 06/18/18 05:47 - Constitutional Appears: Other (intubated, on sedation, appears restless) - Head Exam Head Exam: NORMAL INSPECTION, NORMOCEPHALIC - Eye Exam Eye Exam: Normal appearance Pupil Exam: NORMAL ACCOMODATION Additional comments: Opens eyes spontaneously - ENT Exam ENT Exam: Mucous Membranes Moist Additional comments: intubated; OGT - Neck Exam Neck Exam: Normal Inspection - Respiratory Exam Respiratory Exam: absent: NORMAL BREATHING PATTERN (intubated, on sedation; breathing over vent, restless.) - Cardiovascular Exam Cardiovascular Exam: REGULAR RHYTHM - GI/Abdominal Exam Additional comments: OGT in place - Exam Additional comments: crisostomo cath in place - Extremities Exam Extremities Exam: absent: Full ROM Additional comments: Non-purposeful movements to lower extremities noted; pt noted to have on soft wrist restraints - Neurological Exam Neurological Exam: Altered. absent: Alert, Awake, Reflexes Normal Additional comments: Pt is intubated on sedation. Unable to follow commands. Appears restless and breathing over the vent. Opens eyes spontaneously and to sternal rub. Non-purposeful movements to lower extremities noted; pt noted to have on soft wrist restraints Toes up-going b/l; no clonus noted Hyporeflexia noted BLE Unable to assess strength and sensation 2/2 pt's condition. - Psychiatric Exam Additional comments: intubated, on sedation, restless - Skin Skin Exam: Normal Color Assessment and Plan (1) Altered mental status Assessment & Plan: Imaging reviewed: -Non-contrast CT Head (06/11/18): No acute intracranial abnormality. Moderate global parenchymal volume loss. -ECHO (06/12/18): EF 55-60% -VEEG was done last week---results pending. -MRI Brain without contrast ordered since 06/12/18 to r/o cva or any other acute intracranial involvement, it still has not been done--we will f/u with results once it is completed if it can be done. -I have ordered a repeat non-contrast CT Head in lieu of the MRI not being done--please have this done today. -Dr. Low spoke with ID over the weekend regarding concerns and need for LP---LP was done today in ICU--results of specimen pending. -Maintain isolation as ordered. -Continue ICU management and recommendations per ID and other consults. -Notify neuro team of any acute changes in pt's condition. Case discussed with Dr. Pandey Status: Acute
--- NOTE | 2018-06-18 10:46 | CP.PCM.PN ---
Subjective - Date & Time of Evaluation Date of Evaluation: 06/18/18 Time of Evaluation: 09:00 - Subjective Subjective: intubated NAD Objective - Vital Signs/Intake and Output Vital Signs (last 24 hours): Temp Pulse Resp BP Pulse Ox 98.2 F 87 22 121/73 100 06/18/18 08:00 06/18/18 08:00 06/18/18 08:00 06/18/18 08:00 06/18/18 08:00 Intake and Output: 06/18/18 06/18/18 06:59 18:59 Intake Total 1770 Output Total 900 Balance 870 - Medications Medications: Current Medications Acetaminophen (Tylenol 325mg Tab) 650 mg PO Q4 PRN PRN Reason: Fever >100.4 F Last Admin: 06/13/18 16:18 Dose: 650 mg Dextrose (Dextrose 50% Inj) 0 ml IV STAT PRN; Protocol PRN Reason: Hypoglycemia Protocol Dextrose (Glutose 15) 0 gm PO ONCE PRN; Protocol PRN Reason: Hypoglycemia Protocol Enoxaparin Sodium (Lovenox) 30 mg SC DAILY [facility]; Protocol Last Admin: 06/17/18 09:20 Dose: 30 mg Glucagon (Glucagen Diagnostic Kit) 0 mg IM STAT PRN; Protocol PRN Reason: Hypoglycemia Protocol Moxifloxacin HCl (Avelox Iv 400mg/250ml Ns) 400 mg in 250 mls @ 250 mls/hr IVPB DAILY@2100 [facility]; Protocol Last Admin: 06/17/18 21:10 Dose: 250 mls/hr Trimethoprim/Sulfamethoxazole (200 mg/ Dextrose) 250 mls @ 125 mls/hr IVPB Q12 [facility] Last Admin: 06/18/18 08:19 Dose: 125 mls/hr Ceftriaxone Sodium 2 gm/ (Sodium Chloride) 100 mls @ 100 mls/hr IVPB Q12@0900,2100 [facility] Last Admin: 06/18/18 08:23 Dose: 100 mls/hr Insulin Human Lispro (Humalog) 0 units SC Q6H [facility]; Protocol Last Admin: 06/18/18 05:48 Dose: Not Given Methylprednisolone (Solu-Medrol) 40 mg IVP Q12 [facility] Last Admin: 06/18/18 08:25 Dose: 40 mg Pantoprazole Sodium (Protonix Inj) 40 mg IVP DAILY [facility] Last Admin: 06/18/18 08:22 Dose: 40 mg Propofol (Diprivan) 1,000 mg IV .TITRATE [facility] Last Admin: 06/18/18 01:59 Dose: 1,000 mg Sevelamer HCl (Renagel) 1,600 mg PO TID [facility] Last Admin: 06/18/18 08:22 Dose: Not Given Sodium Bicarbonate (Sodium Bicarbonate Tab) 650 mg PO Q8 [facility] Last Admin: 06/18/18 02:05 Dose: Not Given - Labs Labs: 06/18/18 05:47 06/18/18 05:47 PT 13.1 Seconds (9.8-13.1) 06/18/18 05:47 INR 1.2 06/18/18 05:47 APTT 28.9 Seconds (25.6-37.1) 06/18/18 05:47 - Constitutional Appears: Non-toxic, Cachectic, Chronically Ill - Head Exam Head Exam: NORMOCEPHALIC - Eye Exam Eye Exam: absent: Scleral icterus - ENT Exam ENT Exam: Mucous Membranes Dry - Neck Exam Neck Exam: absent: Lymphadenopathy - Respiratory Exam Respiratory Exam: Decreased Breath Sounds - Cardiovascular Exam Cardiovascular Exam: REGULAR RHYTHM - GI/Abdominal Exam GI & Abdominal Exam: Distended - Rectal Exam Rectal Exam: Deferred - Exam Exam: NORMAL INSPECTION - Extremities Exam Extremities Exam: absent: Pedal Edema - Back Exam Back Exam: absent: CVA tenderness (L), CVA tenderness (R) Assessment and Plan (1) Acute renal failure Status: Acute (2) Altered mental status Status: Acute (3) Diabetes mellitus Status: Acute (4) HIV (human immunodeficiency virus infection) Status: Acute (5) Pneumonia Status: Acute (6) Encephalopathy Status: Acute - Assessment and Plan (Free Text) Assessment: LP Pending if Debi Ink neg- ok to start Complera once daily
[2018-06-18] MEDS ORDERED: Propofol 10 mg/ml 1,000 MG/100 ML VIAL ONE (11:11)
--- NOTE | 2018-06-18 11:31 | PCM.PROC ---
Procedures Attestation:: I certify that I have explained the specified Operation(s) or Procedure(s), risks, benefits and reasonable alternatives to the Patient and/or other person responsible. The opportunity was given to ask questions and all questions answered - Lumbar Puncture Consent Obtained: Written Consent Time Out Performed: Yes Patient Position: Right Lateral Decubitius Skin Prep: Povidone-Iodine 1% Local Anesthetic Used: Lidocaine 1% Amount of Anesthesia Used (mls): 5 Spinal Needle Gauge: 20G Interspace Used: L4-L5 Opening Pressure (cmH2O): 32 Fluid Initially Obtained: Clear Complications: None
--- NOTE | 2018-06-18 11:45 | CP.CCUPN ---
CCU Subjective - Physician Review Subjective (Free Text): 06/14/18 16:14 The patient was Seen and examined by me at the bedside, Medical records reviewed and Management issues were discussed and formulated with the house staff. Events reviewed 67 Years old Male with unknown PMHx on admission who arrived to Emergency department on 06/11 via EMS after wellness check demonstrated unsuitable living conditions, with patient confused and unkempt. In ED patient poor historian, but notes dizziness, and denies falls, trauma, focal weakness or pain Given oral thrush on admission, rapid HIV was done in the ER and was positive He was transferred to ICU on 06/13 after DATA MANAGEMENT was called on the floor for Hypoten jaylyn most likely secondary to volume depletion and severe dehydration Patient was admitted to ICU for HUGO most likely prerenal, Altered mental status, severe sepsis from Pneumonia possibly PCP He was awake, but confused, follows some commands Patient was intubated last Monday for worsening mental status and hypoxemia Currently orally intubated and sedated Vent setting PRBC 400/12/60 percentBP of 5 On propofol drip 25 mcg with RAAS score of -2 Hemodynamically improved No Vasopressors Comfortable, NAD Today spinal tap was done by anesthesia and CSF fluid was sent for chemistry, cell count, with mild virus, AFB, cryptococcal serology, glucose, protein and bacterial culture Patient is currently been empirically covered with IV Bactrim to cover for PCP pneumonia Also empirically covered with meningitis Patient on isolation while ruling out meningitis also ruling out TB, One sputum for AFB was sent today PPD was negative likely in the setting of severe immune suppression Critical Care Time Spent (in minutes): 56 CCU Objective - Vital Signs / Intake & Output Vital Signs (Last 4 hours): Vital Signs Temp Pulse Resp BP Pulse Ox 06/18/18 08:00 98.2 F 87 22 121/73 100 Intake and Output (Last 8hrs): Intake & Output 06/17/18 06/18/18 06/18/18 22:59 06:59 14:59 Intake Total 1700 670 Output Total 1000 900 Balance 700 -230 Weight 132 lb Intake: IV 640 480 Intake, Piggyback 600 Tube Feeding 360 90 Free Water Flush 100 100 Output: Urine 1000 900 Urethral (Yang) 1000 900 Other: # Bowel Movements 1 1 - Physical Exam Physical Exam Limitations: Positive for: Altered Mental Status, Clinical Condition Head: Positive for: Atraumatic, Normocephalic Pupils: Positive for: PERRL Extroacular Muscles: Positive for: EOMI Conjunctiva: Positive for: Normal. Negative for: Injected, Icteric Mouth: Positive for: Moist Mucous Membranes. Negative for: Dry, Drooling Pharnyx: Positive for: Normal Nose (Internal): Positive for: Normal Inspection Neck: Positive for: Normal Range of Motion, Trachea Midline. Negative for: Meningeal Signs, MIDLINE TENDERNESS, Paraspinal Tenderness, JVD, Lymphadenopathy, Bruit, Other Respiratory/Chest: Positive for: Good Air Exchange, Decreased Breath Sounds, Rales, Rhonchi. Negative for: Respiratory Distress, Accessory Muscle Use, Tachypneic, Tender to Palpation Cardiovascular: Positive for: Regular Rate and Rhythm, Normal S1, S2, Peripheal Pulses Present. Negative for: Murmurs, Irregular Rhythm, Tachycardic, Bradycardic Abdomen: Positive for: Normal Bowel Sounds. Negative for: Tenderness, Distention Neurological: Positive for: Motor Func Grossly Intact, Normal Sensory Function. Negative for: GCS=15 Psychiatric: Positive for: Other (Sedated and orally intubated). Negative for: Alert, Oriented x 3 - Medications Active Medications: Active Medications Generic Name Dose Route Start Last Admin Trade Name Freq PRN Reason Stop Dose Admin Acetaminophen 650 mg 06/13/18 05:17 06/13/18 16:18 Tylenol 325mg Tab PO 650 mg Q4 PRN Administration Fever >100.4 F Dextrose 0 ml 06/11/18 22:54 Dextrose 50% Inj IV STAT PRN Hypoglycemia Protocol Protocol Dextrose 0 gm 06/11/18 22:54 Glutose 15 PO ONCE PRN Hypoglycemia Protocol Protocol Enoxaparin Sodium 30 mg 06/16/18 13:30 06/17/18 09:20 Lovenox SC 30 mg DAILY [facility] Administration Protocol Glucagon 0 mg 06/11/18 22:54 Glucagen Diagnostic Kit IM STAT PRN Hypoglycemia Protocol Protocol Moxifloxacin HCl 400 mg in 250 mls @ 250 mls/hr 06/14/18 21:00 06/17/18 21:10 Avelox Iv 400mg/250ml Ns IVPB 250 mls/hr DAILY@2100 [facility] Administration Protocol Trimethoprim/Sulfamethoxazole 250 mls @ 125 mls/hr 06/17/18 21:00 06/18/18 08:19 200 mg/ Dextrose IVPB 125 mls/hr Q12 [facility] Administration Ceftriaxone Sodium 2 gm/ 100 mls @ 100 mls/hr 06/17/18 21:00 06/18/18 08:23 Sodium Chloride IVPB 100 mls/hr Q12@0900,2100 [facility] Administration Insulin Human Lispro 0 units 06/17/18 21:00 06/18/18 05:48 Humalog SC Not Given Q6H [facility] Protocol Methylprednisolone 40 mg 06/13/18 21:00 06/18/18 08:25 Solu-Medrol IVP 40 mg Q12 [facility] Administration Pantoprazole Sodium 40 mg 06/14/18 09:00 06/18/18 08:22 Protonix Inj IVP 40 mg DAILY [facility] Administration Propofol 1,000 mg 06/16/18 10:15 06/18/18 01:59 Diprivan IV 1,000 mg .TITRATE [facility] Administration Sevelamer HCl 1,600 mg 06/12/18 13:00 06/18/18 08:22 Renagel PO Not Given TID [facility] Sodium Bicarbonate 650 mg 06/15/18 17:00 06/18/18 02:05 Sodium Bicarbonate Tab PO Not Given Q8 [facility] - Patient Studies Lab Studies: Microbiology Studies 06/13/18 10:42 Blood Culture - Final Blood NO GROWTH AFTER 5 DAYS Gram Stain - Final TEST NOT PERFORMED 06/13/18 10:42 Blood Culture - Final Blood NO GROWTH AFTER 5 DAYS Gram Stain - Final TEST NOT PERFORMED 06/12/18 18:30 Blood Culture - Final Blood NO GROWTH AFTER 5 DAYS Gram Stain - Final TEST NOT PERFORMED Lab Studies 06/18/18 06/18/18 06/18/18 Range/Units 05:47 05:47 05:47 WBC 7.9 (4.8-10.8) K/uL RBC 3.22 L (4.40-5.90) Mil/uL Hgb 8.9 L (12.0-18.0) g/dL Hct 26.8 L (35.0-51.0) % MCV 83.2 (80.0-94.0) fl MCH 27.5 (27.0-31.0) pg MCHC 33.0 (33.0-37.0) g/dL RDW 17.2 H (11.5-14.5) % Plt Count 186 (130-400) K/uL PT 13.1 (9.8-13.1) Seconds INR 1.2 APTT 28.9 (25.6-37.1) Seconds pCO2 (35-45) mm/Hg pO2 (80-100) mm/Hg HCO3 (21-28) mmol/L ABG pH (7.35-7.45) ABG Total CO2 (22-28) mmol/L ABG O2 Saturation (95-98) % ABG O2 Content (15-23) ML/dL ABG Base Excess (-2.0-3.0) mmol/L ABG Hemoglobin (11.7-17.4) g/dL ABG Carboxyhemoglobin (0.5-1.5) % POC ABG HHb (Measured) (0.0-5.0) % ABG Methemoglobin (0.0-3.0) % ABG O2 Capacity (16-24) mL/dL Bright Test A-a O2 Difference mm/Hg Hgb O2 Saturation (95.0-98.0) % Vent Mode Mechanical Rate FiO2 % Tidal Volume PEEP Sodium 143 (132-148) mmol/l Potassium 4.3 (3.6-5.0) MMOL/L Chloride 114 H (98-107) mmol/L Carbon Dioxide 16 L (22-30) mmol/L Anion Gap 17 (10-20) BUN 37 H (9-20) mg/dl Creatinine 2.2 H (0.8-1.5) mg/dl Est GFR ( Amer) 36 Est GFR (Non-Af Amer) 30 POC Glucose (mg/dL) (65-110) mg/dL Random Glucose 194 H (75-110) mg/dL Calcium 7.1 L (8.4-10.2) mg/dL Total Bilirubin < 0.1 L (0.2-1.3) mg/dl AST 30 (17-59) U/L ALT 33 (21-72) U/L Alkaline Phosphatase 111 (38-126) U/L Total Protein 5.4 L (6.3-8.2) G/DL Albumin 2.3 L (3.5-5.0) g/dL Globulin 3.1 (2.2-3.9) gm/dL Albumin/Globulin Ratio 0.8 L (1.0-2.1) 06/18/18 06/18/18 06/17/18 Range/Units 05:30 05:05 20:45 WBC (4.8-10.8) K/uL RBC (4.40-5.90) Mil/uL Hgb (12.0-18.0) g/dL Hct (35.0-51.0) % MCV (80.0-94.0) fl MCH (27.0-31.0) pg MCHC (33.0-37.0) g/dL RDW (11.5-14.5) % Plt Count (130-400) K/uL PT (9.8-13.1) Seconds INR APTT (25.6-37.1) Seconds pCO2 28 L (35-45) mm/Hg pO2 98 (80-100) mm/Hg HCO3 17.2 L (21-28) mmol/L ABG pH 7.33 L (7.35-7.45) ABG Total CO2 15.7 L (22-28) mmol/L ABG O2 Saturation 100.1 H (95-98) % ABG O2 Content 13.0 L (15-23) ML/dL ABG Base Excess -10.0 L (-2.0-3.0) mmol/L ABG Hemoglobin 9.4 L (11.7-17.4) g/dL ABG Carboxyhemoglobin 1.6 H (0.5-1.5) % POC ABG HHb (Measured) -0.1 L (0.0-5.0) % ABG Methemoglobin 1.0 (0.0-3.0) % ABG O2 Capacity 13.0 L (16-24) mL/dL Bright Test Yes A-a O2 Difference 295.0 mm/Hg Hgb O2 Saturation 97.4 (95.0-98.0) % Vent Mode A/c Mechanical Rate 12 FiO2 60.0 % Tidal Volume 400 PEEP 5 Sodium (132-148) mmol/l Potassium (3.6-5.0) MMOL/L Chloride (98-107) mmol/L Carbon Dioxide (22-30) mmol/L Anion Gap (10-20) BUN (9-20) mg/dl Creatinine (0.8-1.5) mg/dl Est GFR ( Amer) Est GFR (Non-Af Amer) POC Glucose (mg/dL) 176 H 239 H (65-110) mg/dL Random Glucose (75-110) mg/dL Calcium (8.4-10.2) mg/dL Total Bilirubin (0.2-1.3) mg/dl AST (17-59) U/L ALT (21-72) U/L Alkaline Phosphatase (38-126) U/L Total Protein (6.3-8.2) G/DL Albumin (3.5-5.0) g/dL Globulin (2.2-3.9) gm/dL Albumin/Globulin Ratio (1.0-2.1) 06/17/18 06/17/18 Range/Units 16:27 12:03 WBC (4.8-10.8) K/uL RBC (4.40-5.90) Mil/uL Hgb (12.0-18.0) g/dL Hct (35.0-51.0) % MCV (80.0-94.0) fl MCH (27.0-31.0) pg MCHC (33.0-37.0) g/dL RDW (11.5-14.5) % Plt Count (130-400) K/uL PT (9.8-13.1) Seconds INR APTT (25.6-37.1) Seconds pCO2 (35-45) mm/Hg pO2 (80-100) mm/Hg HCO3 (21-28) mmol/L ABG pH (7.35-7.45) ABG Total CO2 (22-28) mmol/L ABG O2 Saturation (95-98) % ABG O2 Content (15-23) ML/dL ABG Base Excess (-2.0-3.0) mmol/L ABG Hemoglobin (11.7-17.4) g/dL ABG Carboxyhemoglobin (0.5-1.5) % POC ABG HHb (Measured) (0.0-5.0) % ABG Methemoglobin (0.0-3.0) % ABG O2 Capacity (16-24) mL/dL Bright Test A-a O2 Difference mm/Hg Hgb O2 Saturation (95.0-98.0) % Vent Mode Mechanical Rate FiO2 % Tidal Volume PEEP Sodium (132-148) mmol/l Potassium (3.6-5.0) MMOL/L Chloride (98-107) mmol/L Carbon Dioxide (22-30) mmol/L Anion Gap (10-20) BUN (9-20) mg/dl Creatinine (0.8-1.5) mg/dl Est GFR ( Amer) Est GFR (Non-Af Amer) POC Glucose (mg/dL) 278 H 242 H (65-110) mg/dL Random Glucose (75-110) mg/dL Calcium (8.4-10.2) mg/dL Total Bilirubin (0.2-1.3) mg/dl AST (17-59) U/L ALT (21-72) U/L Alkaline Phosphatase (38-126) U/L Total Protein (6.3-8.2) G/DL Albumin (3.5-5.0) g/dL Globulin (2.2-3.9) gm/dL Albumin/Globulin Ratio (1.0-2.1) Laboratory Results - last 24 hr 06/17/18 06/17/18 06/17/18 12:03 16:27 20:45 WBC RBC Hgb Hct MCV MCH MCHC RDW Plt Count PT INR APTT pCO2 pO2 HCO3 ABG pH ABG Total CO2 ABG O2 Saturation ABG O2 Content ABG Base Excess ABG Hemoglobin ABG Carboxyhemoglobin POC ABG HHb (Measured) ABG Methemoglobin ABG O2 Capacity Bright Test A-a O2 Difference Hgb O2 Saturation Vent Mode Mechanical Rate FiO2 Tidal Volume PEEP Sodium Potassium Chloride Carbon Dioxide Anion Gap BUN Creatinine Est GFR ( Amer) Est GFR (Non-Af Amer) POC Glucose (mg/dL) 242 H 278 H 239 H Random Glucose Calcium Total Bilirubin AST ALT Alkaline Phosphatase Total Protein Albumin Globulin Albumin/Globulin Ratio 06/18/18 06/18/18 06/18/18 05:05 05:30 05:47 WBC RBC Hgb Hct MCV MCH MCHC RDW Plt Count PT 13.1 INR 1.2 APTT 28.9 pCO2 28 L pO2 98 HCO3 17.2 L ABG pH 7.33 L ABG Total CO2 15.7 L ABG O2 Saturation 100.1 H ABG O2 Content 13.0 L ABG Base Excess -10.0 L ABG Hemoglobin 9.4 L ABG Carboxyhemoglobin 1.6 H POC ABG HHb (Measured) -0.1 L ABG Methemoglobin 1.0 ABG O2 Capacity 13.0 L Bright Test Yes A-a O2 Difference 295.0 Hgb O2 Saturation 97.4 Vent Mode A/c Mechanical Rate 12 FiO2 60.0 Tidal Volume 400 PEEP 5 Sodium Potassium Chloride Carbon Dioxide Anion Gap BUN Creatinine Est GFR ( Amer) Est GFR (Non-Af Amer) POC Glucose (mg/dL) 176 H Random Glucose Calcium Total Bilirubin AST ALT Alkaline Phosphatase Total Protein Albumin Globulin Albumin/Globulin Ratio 06/18/18 06/18/18 05:47 05:47 WBC 7.9 RBC 3.22 L Hgb 8.9 L Hct 26.8 L MCV 83.2 MCH 27.5 MCHC 33.0 RDW 17.2 H Plt Count 186 PT INR APTT pCO2 pO2 HCO3 ABG pH ABG Total CO2 ABG O2 Saturation ABG O2 Content ABG Base Excess ABG Hemoglobin ABG Carboxyhemoglobin POC ABG HHb (Measured) ABG Methemoglobin ABG O2 Capacity Bright Test A-a O2 Difference Hgb O2 Saturation Vent Mode Mechanical Rate FiO2 Tidal Volume PEEP Sodium 143 Potassium 4.3 Chloride 114 H Carbon Dioxide 16 L Anion Gap 17 BUN 37 H Creatinine 2.2 H Est GFR ( Amer) 36 Est GFR (Non-Af Amer) 30 POC Glucose (mg/dL) Random Glucose 194 H Calcium 7.1 L Total Bilirubin < 0.1 L AST 30 ALT 33 Alkaline Phosphatase 111 Total Protein 5.4 L Albumin 2.3 L Globulin 3.1 Albumin/Globulin Ratio 0.8 L Radiology Impressions: Radiology Impressions Chest X-Ray 06/18/18 04:00 IMPRESSION: Little interval change in moderate congestive heart failure. Airspace disease in the right lower lobe may represent atelectasis or developing pneumonia. Follow-up is advised. Stable position of support line and tubes. Fingerstick Blood Sugar Results: 176 Review of Systems - Review of Systems Systems not reviewed;Unavailable: Intubated Critical Care Progress Note - Ventilator Checklist Head of Bed 30 Degrees: Yes Daily Sedation Vacation: Yes Daily Assessment of Readiness to Wean: Yes Daily Spontaneous Breathing Trial: Yes PUD Prophalyxis: Yes DVT Prophylaxis: Yes Oral Care with Chlorhexidine Gluconate {CHG}: Yes - Extremities/Vascular Does the Patient have a Central Venous Catheter?: Yes Does the Patient need a Central Venous Catheter?: Yes Does the Patient have a Yang Catheter?: Yes Does the Patient need a Yang Catheter?: Yes - Nutrition Nutrition: Nutrition Category Date Time Status NPO Diet [DIET] Diets 06/18/18 Breakfast Active Assessment/Plan (1) Acute respiratory failure Current Visit: Yes Status: Acute Comment: Patient was intubated for worsening mental status, airway protection and also for hypoxemia secondary to bilateral pneumonia presumptively PCP Chest x-ray ABGs this morning was reviewed Continue to assess for sedation vacation and vent weaning when patient more stable and improve oxygenation and ventilation also mental status needs to improve before consider extubation Patient is n.p.o. after midnight scheduled for bronchoscopy in the morning Continue with antibiotic coverage Aggressive pulmonary toileting chest PT and suctioning Sputum for AFB (2) Severe sepsis Current Visit: Yes Status: Acute Priority: High Comment: BP improved, no vasopressors, Continue current broad spectrum antibiotics Presumptive treatment for meningitis with Moxifloxacin, Ceftriaxone acyclovir for herpes encephalitis and bactrim for PCP. ID consult (3) Acute renal failure Current Visit: Yes Status: Acute Priority: High Comment: Acute renal injury due to circulatory failure and septic shock Hypotensive improved, No vasopressors Morning Labs showing improved renal functions IVF hydration Monitor Input/Output (4) Altered mental status Current Visit: Yes Status: Acute Priority: High Comment: Toxic metabolic Encephalopathy Suspect central nervous system infection, On imperic coverage Spinal tap was done this morning results mostly still pending No neurological improvement Lumbar Puncture done today Head CT scan negative for bleed EEG MRI pending (5) Pneumonia Current Visit: Yes Status: Acute Priority: High Comment: As per sepsis, plus Solu-Medrol 40 mg IVP Q12 and bactrim presumptive treatment for PCP. NPO after midnight, Bronch in AM (6) HIV (human immunodeficiency virus infection) Current Visit: Yes Status: Acute Priority: High Comment: As per ID consult we will initiate heart medication once cryptococcal meningitis is ruled out patient underwent spinal tap this morning and injured in cryptococcal testing was sent - Assessment and Plan (Free Text) Assessment: Continue with current management Full code Head of the bed elevation Maintain aspiration precaution GI/DVT prophylaxis I had Excessive discussion with the next of kin regarding treatment plan and alternative, He is in agreement with the current management Total critical care time 46 minutes
[2018-06-18 12:18] LABS: FLUID TYPE SPINAL FLUID
[2018-06-18 12:54] LABS: CSF APPEARANCE CLEAR/COLORLESS (CLEAR); CSF VOLUME 2 mL (0-1)
--- NOTE | 2018-06-18 12:57 | CP.PCM.PN ---
Subjective - Date & Time of Evaluation Date of Evaluation: 06/18/18 Time of Evaluation: 12:20 - Subjective Subjective: F/U Respiratory failure. intubated, sedated Objective - Vital Signs/Intake and Output Vital Signs (last 24 hours): Temp Pulse Resp BP Pulse Ox 98.5 F 82 25 H 122/81 99 06/18/18 12:00 06/18/18 12:00 06/18/18 12:00 06/18/18 12:00 06/18/18 12:00 Intake and Output: 06/18/18 06/18/18 06:59 18:59 Intake Total 1770 370 Output Total 900 Balance 870 370 - Medications Medications: Current Medications Acetaminophen (Tylenol 325mg Tab) 650 mg PO Q4 PRN PRN Reason: Fever >100.4 F Last Admin: 06/13/18 16:18 Dose: 650 mg Dextrose (Dextrose 50% Inj) 0 ml IV STAT PRN; Protocol PRN Reason: Hypoglycemia Protocol Dextrose (Glutose 15) 0 gm PO ONCE PRN; Protocol PRN Reason: Hypoglycemia Protocol Enoxaparin Sodium (Lovenox) 30 mg SC DAILY [facility]; Protocol Last Admin: 06/17/18 09:20 Dose: 30 mg Glucagon (Glucagen Diagnostic Kit) 0 mg IM STAT PRN; Protocol PRN Reason: Hypoglycemia Protocol Moxifloxacin HCl (Avelox Iv 400mg/250ml Ns) 400 mg in 250 mls @ 250 mls/hr IVPB DAILY@2100 [facility]; Protocol Last Admin: 06/17/18 21:10 Dose: 250 mls/hr Trimethoprim/Sulfamethoxazole (200 mg/ Dextrose) 250 mls @ 125 mls/hr IVPB Q12 [facility] Last Admin: 06/18/18 08:19 Dose: 125 mls/hr Ceftriaxone Sodium 2 gm/ (Sodium Chloride) 100 mls @ 100 mls/hr IVPB Q12@0900,2100 [facility] Last Admin: 06/18/18 08:23 Dose: 100 mls/hr Insulin Human Lispro (Humalog) 0 units SC Q6H [facility]; Protocol Last Admin: 06/18/18 05:48 Dose: Not Given Methylprednisolone (Solu-Medrol) 40 mg IVP Q12 [facility] Last Admin: 06/18/18 08:25 Dose: 40 mg Pantoprazole Sodium (Protonix Inj) 40 mg IVP DAILY [facility] Last Admin: 06/18/18 08:22 Dose: 40 mg Propofol (Diprivan) 1,000 mg IV .TITRATE [facility] Last Admin: 06/18/18 01:59 Dose: 1,000 mg Sevelamer HCl (Renagel) 1,600 mg PO TID [facility] Last Admin: 06/18/18 08:22 Dose: Not Given Sodium Bicarbonate (Sodium Bicarbonate Tab) 650 mg PO Q8 [facility] Last Admin: 06/18/18 12:09 Dose: Not Given - Labs Labs: 06/18/18 05:47 06/18/18 05:47 PT 13.1 Seconds (9.8-13.1) 06/18/18 05:47 INR 1.2 06/18/18 05:47 APTT 28.9 Seconds (25.6-37.1) 06/18/18 05:47 - Constitutional Appears: Chronically Ill - Head Exam Head Exam: NORMAL INSPECTION - Eye Exam Eye Exam: PERRL - ENT Exam Additional comments: Intubated, OGT - Neck Exam Neck Exam: Normal Inspection - Respiratory Exam Respiratory Exam: Decreased Breath Sounds (at bases), Rhonchi (bases) - Cardiovascular Exam Cardiovascular Exam: REGULAR RHYTHM - GI/Abdominal Exam GI & Abdominal Exam: Soft, Normal Bowel Sounds - Exam Additional comments: Yang Cath - Extremities Exam Extremities Exam: Normal Inspection - Back Exam Back Exam: NORMAL INSPECTION - Neurological Exam Additional comments: Intubated, sedated - Skin Skin Exam: Warm Assessment and Plan (1) Respiratory failure Status: Resolved (2) Altered mental status Status: Acute (3) HIV (human immunodeficiency virus infection) Status: Acute (4) Fever Status: Resolved (5) Pneumonia Status: Resolved (6) Severe sepsis Status: Resolved (7) Acute renal failure Status: Acute (8) Diabetes mellitus Status: Acute - Assessment and Plan (Free Text) Plan: Patient had LP earlier, to have Brain MRI today, for Broncoscopy tomorow, continue ventilatory support, Atb, HAART and rest of Tx , f/u LP chemistry and C-S Critical care time: 33 min.
[2018-06-18 12:58] LABS: CSF MONO/MACROPHAGE 0 % (0-0)
[2018-06-18] MEDS: Moxifloxacin IV 400mg/250ml NS 400 MG/250 ML BAG IVPB SCH (21:30)
[2018-06-18] MEDS: Propofol 10 mg/ml 1,000 MG/100 ML VIAL IV SCH (23:52)
[2018-06-19 04:39] LABS: ABG ALLEN TEST YES; ARTERIAL BLOOD GAS HCO3 18.5 mmol/L (21-28); ARTERIAL BLOOD GAS HEMOGLOBIN 9.9 g/dL (11.7-17.4); ARTERIAL BLOOD GAS O2 CAPACITY 13.7 mL/dL (16-24); ARTERIAL BLOOD GAS O2 CONTENT 13.7 ML/dL (15-23); ARTERIAL BLOOD GAS O2 SAT 99.9 % (95-98); ARTERIAL BLOOD GAS PCO2 34 mm/Hg (35-45); ARTERIAL BLOOD GAS PH 7.31 (7.35-7.45); ARTERIAL BLOOD GAS PO2 122 mm/Hg (80-100); ARTERIAL BLOOD GAS TCO2 18.1 mmol/L (22-28)
[2018-06-19 05:55] LABS: BASO % 0.1 % (0.0-2.0); HEMOGLOBIN 9.7 g/dL (12.0-18.0); LYMPH # 0.7 K/uL (1.0-4.3); LYMPH % 9.4 % (20.0-40.0); MEAN CELL VOLUME 82.8 fl (80.0-94.0); MEAN CORPUSCULAR HEMOGLOBIN 26.9 pg (27.0-31.0); MEAN CORPUSCULAR HGB CONC 32.5 g/dL (33.0-37.0); MEAN PLATELET VOLUME 10.3 fl (7.2-11.7); MONO # 0.2 K/uL (0.0-0.8); MONO % 2.8 % (0.0-10.0); NEUT # 6.8 K/uL (1.8-7.0); NEUT % 87.7 % (50.0-75.0); NRBC % 0.1 % (0.0-0.0); PLATELET COUNT 207 K/uL (130-400); RBC 3.62 Mil/uL (4.40-5.90); RED CELL DISTRIBUTION WIDTH 17.2 % (11.5-14.5); WHITE BLOOD COUNT 7.8 K/uL (4.8-10.8)
[2018-06-19 06:08] LABS: ALB/GLOB RATIO 0.8 (1.0-2.1); ALBUMIN 2.5 g/dL (3.5-5.0); CALCIUM 7.8 mg/dL (8.4-10.2)
[2018-06-19] MEDS: Insulin Lispro (humaLOG) 100 Units/ml Inj SC SCH ×4 (06:30→21:10)
--- NOTE | 2018-06-19 07:19 | CP.CCUPN ---
CCU Subjective - Physician Review Subjective (Free Text): 06/19/18 13:16 The patient was Seen and examined by me at the bedside, Medical records reviewed and Management issues were discussed and formulated with the house staff. Events reviewed 67 Years old Male with unknown PMHx on admission who arrived to Emergency department on 06/11 via EMS after wellness check demonstrated unsuitable living conditions, with patient confused and unkempt. In ED, patient poor historian, but notes dizziness and denies falls, trauma, focal weakness or pain Given oral thrush on admission, rapid HIV was done in the ER and was positive EKG: Sinus Tachycardia. Head CT: No acute intracranial abnormality, mod volume loss. He was admitted to the Telemetry with diagnosis acute renal failure, hypokalemia, azotemia with delirium Patient was transferred to ICU on 06/13 after [employer] was called on the floor for Hypotension most likely secondary to volume depletion and severe dehydration Patient was admitted to ICU with diagnosis HUGO most likely prerenal, Altered mental status, severe sepsis from Pneumonia possibly PCP All in the sitting of newly diagnosed HIV (untreated with very very low CD4 count) He was awake, but confused, intermittently follows some commands ICU course noted for worsening mental status, he was found to Combative, Inappropriate, Restless Patient was intubated 06/15/18 for worsening mental status and hypoxemia Currently orally intubated and sedated Vent setting PRBC 400/12/60%- PEEP of 5 ABG this morning 7.31/34/122/18/99.9% Will decrease Fio2 to 50% On propofol drip 25 mcg with RAAS score of -2 Hemodynamically improved No Vasopressors Comfortable, NAD Afebrile, NSR on the monitor Last 24H I&O 1445/800 028/11, Patient placed on Right Lateral Decubitius, and spinal tap was done by anesthesia, He tolerated the procedure well Consent was obtained over the phone from appointed uncle (by the patient mother in [place]) The CSF fluid was sent for chemistry, cell count, with mild virus, AFB, cryptococcal serology, glucose, protein and bacterial culture Opening pressure 32, Fluid Clear CSF debi ink and cultures negative so far. Patient is currently been empirically covered with IV Bactrim to cover for PCP pneumonia Also empirically covered with meningitis Patient on isolation while ruling out meningitis also ruling out TB, Second sputum for AFB was sent today, One was sent yesterday PPD was negative likely in the setting of severe immune suppression Bronchoscopy was postponed to tomorrow morning, and will be done in the Endoscopy suit since he need negative pressure isolation Will resume diet ans he can get his PO medications including HAART CCU Objective - Vital Signs / Intake & Output Intake and Output (Last 8hrs): Intake & Output 06/18/18 06/19/18 06/19/18 22:59 06:59 14:59 Intake Total 810 250 Output Total 800 Balance 810 -550 Weight 128 lb 9 oz Intake: IV 40 0 Intake, Piggyback 400 250 Tube Feeding 270 0 Free Water Flush 100 Output: Urine 800 Urethral (Yang) 800 Other: # Bowel Movements 1 - Physical Exam Head: Positive for: Atraumatic, Normocephalic Pupils: Positive for: PERRL Extroacular Muscles: Positive for: EOMI Conjunctiva: Positive for: Normal. Negative for: Injected, Icteric Mouth: Positive for: Moist Mucous Membranes. Negative for: Dry, Drooling Pharnyx: Positive for: Normal Nose (Internal): Positive for: Normal Inspection Neck: Positive for: Normal Range of Motion, Trachea Midline. Negative for: Meningeal Signs, MIDLINE TENDERNESS, Paraspinal Tenderness, JVD, Lymphadenopathy, Bruit, Other Respiratory/Chest: Positive for: Good Air Exchange, Decreased Breath Sounds, Rales, Rhonchi. Negative for: Respiratory Distress, Accessory Muscle Use, Tachypneic, Tender to Palpation Cardiovascular: Positive for: Regular Rate and Rhythm, Normal S1, S2, Peripheal Pulses Present. Negative for: Murmurs, Irregular Rhythm, Tachycardic, Bradycardic Abdomen: Positive for: Normal Bowel Sounds. Negative for: Tenderness, Distention Neurological: Positive for: Motor Func Grossly Intact, Normal Sensory Function. Negative for: GCS=15 Psychiatric: Positive for: Other (Sedated and orally intubated). Negative for: Alert, Oriented x 3 - Medications Active Medications: Active Medications Generic Name Dose Route Start Last Admin Trade Name Freq PRN Reason Stop Dose Admin Acetaminophen 650 mg 06/13/18 05:17 06/13/18 16:18 Tylenol 325mg Tab PO 650 mg Q4 PRN Administration Fever >100.4 F Dextrose 0 ml 06/11/18 22:54 Dextrose 50% Inj IV STAT PRN Hypoglycemia Protocol Protocol Dextrose 0 gm 06/11/18 22:54 Glutose 15 PO ONCE PRN Hypoglycemia Protocol Protocol Enoxaparin Sodium 30 mg 06/16/18 13:30 06/17/18 09:20 Lovenox SC 30 mg DAILY RIMA Administration Protocol Glucagon 0 mg 06/11/18 22:54 Glucagen Diagnostic Kit IM STAT PRN Hypoglycemia Protocol Protocol Moxifloxacin HCl 400 mg in 250 mls @ 250 mls/hr 06/14/18 21:00 06/18/18 21:30 Avelox Iv 400mg/250ml Ns IVPB 250 mls/hr DAILY@2100 RIMA Administration Protocol Trimethoprim/Sulfamethoxazole 250 mls @ 125 mls/hr 06/17/18 21:00 06/18/18 22:50 200 mg/ Dextrose IVPB 125 mls/hr Q12 RIMA Administration Ceftriaxone Sodium 2 gm/ 100 mls @ 100 mls/hr 06/17/18 21:00 06/18/18 20:30 Sodium Chloride IVPB 100 mls/hr Q12@0900,2100 RIMA Administration Propofol 1,000 mg in 100 mls @ 12.574 mls/hr 06/18/18 23:30 06/19/18 05:40 Diprivan IV 06/19/18 23:27 35 mcg/kg/min .Q7H58M RIMA 12.574 mls/hr Titration Protocol 35 MCG/KG/MIN Insulin Human Lispro 0 units 06/17/18 21:00 06/18/18 22:07 Humalog SC Not Given Q6H RIMA Protocol Lamivudine 150 mg 06/19/18 09:00 Epivir PO DAILY [facility] Protocol Methylprednisolone 40 mg 06/13/18 21:00 06/18/18 20:15 Solu-Medrol IVP 40 mg Q12 RIMA Administration Pantoprazole Sodium 40 mg 06/14/18 09:00 06/18/18 08:22 Protonix Inj IVP 40 mg DAILY RIMA Administration Raltegravir 400 mg 06/19/18 09:00 Isentress PO BID [facility] Protocol Sevelamer Carbonate 1,600 mg 06/18/18 17:00 06/18/18 18:28 Renvela PO 1,600 mg TID RIMA Administration Sodium Bicarbonate 650 mg 06/15/18 17:00 06/19/18 01:24 Sodium Bicarbonate Tab PO Not Given Q8 [facility] Tenofovir Disoproxil Fumarate 300 mg 06/18/18 23:45 06/19/18 01:25 Viread PO Not Given Q48H [facility] Protocol - Patient Studies Lab Studies: Microbiology Studies 06/18/18 12:10 Debi Ink - Final Cerebral Spinal Fluid No growth. 06/18/18 12:10 Gram Stain - Final Cerebral Spinal Fluid 06/13/18 10:42 Blood Culture - Final Blood NO GROWTH AFTER 5 DAYS Gram Stain - Final TEST NOT PERFORMED 06/13/18 10:42 Blood Culture - Final Blood NO GROWTH AFTER 5 DAYS Gram Stain - Final TEST NOT PERFORMED Lab Studies 06/19/18 06/19/18 06/19/18 Range/Units 06:33 04:25 04:25 WBC 7.8 (4.8-10.8) K/uL RBC 3.62 L (4.40-5.90) Mil/uL Hgb 9.7 L (12.0-18.0) g/dL Hct 30.0 L (35.0-51.0) % MCV 82.8 (80.0-94.0) fl MCH 26.9 L (27.0-31.0) pg MCHC 32.5 L (33.0-37.0) g/dL RDW 17.2 H (11.5-14.5) % Plt Count 207 (130-400) K/uL MPV 10.3 (7.2-11.7) fl Neut % (Auto) 87.7 H (50.0-75.0) % Lymph % (Auto) 9.4 L (20.0-40.0) % Coos % (Auto) 2.8 (0.0-10.0) % Eos % (Auto) 0.0 (0.0-4.0) % Baso % (Auto) 0.1 (0.0-2.0) % Neut # (Auto) 6.8 (1.8-7.0) K/uL Lymph # (Auto) 0.7 L (1.0-4.3) K/uL Coos # (Auto) 0.2 (0.0-0.8) K/uL Eos # (Auto) 0.0 (0.0-0.7) K/uL Baso # (Auto) 0.0 (0.0-0.2) K/uL pCO2 (35-45) mm/Hg pO2 (80-100) mm/Hg HCO3 (21-28) mmol/L ABG pH (7.35-7.45) ABG Total CO2 (22-28) mmol/L ABG O2 Saturation (95-98) % ABG O2 Content (15-23) ML/dL ABG Base Excess (-2.0-3.0) mmol/L ABG Hemoglobin (11.7-17.4) g/dL ABG Carboxyhemoglobin (0.5-1.5) % POC ABG HHb (Measured) (0.0-5.0) % ABG Methemoglobin (0.0-3.0) % ABG O2 Capacity (16-24) mL/dL Bright Test A-a O2 Difference mm/Hg Hgb O2 Saturation (95.0-98.0) % Vent Mode Mechanical Rate FiO2 % Tidal Volume PEEP Sodium 145 (132-148) mmol/l Potassium 5.1 H (3.6-5.0) MMOL/L Chloride 116 H (98-107) mmol/L Carbon Dioxide 18 L (22-30) mmol/L Anion Gap 16 (10-20) BUN 41 H (9-20) mg/dl Creatinine 2.1 H (0.8-1.5) mg/dl Est GFR ( Amer) 38 Est GFR (Non-Af Amer) 32 POC Glucose (mg/dL) 158 H (65-110) mg/dL Random Glucose 178 H (75-110) mg/dL Hemoglobin A1c (4.2-6.5) % Calcium 7.8 L (8.4-10.2) mg/dL Phosphorus 3.7 (2.5-4.5) mg/dl Magnesium 1.8 (1.6-2.3) MG/DL Total Bilirubin 0.2 (0.2-1.3) mg/dl AST 21 (17-59) U/L ALT 29 (21-72) U/L Alkaline Phosphatase 105 (38-126) U/L Total Protein 5.6 L (6.3-8.2) G/DL Albumin 2.5 L (3.5-5.0) g/dL Globulin 3.1 (2.2-3.9) gm/dL Albumin/Globulin Ratio 0.8 L (1.0-2.1) Fluid Type CSF Volume (0-1) mL CSF Appearance (CLEAR) CSF WBC (0.0-5.0) /mm3 CSF RBC (0.0-0.0) /mm3 CSF Total Cell Counted CSF Neutrophils (0-0) % CSF Lymphocytes (0-0) % CSF Monos/Macrophages (0-0) % CSF Comment CSF Glucose (40-70) mg/dL CSF Total Protein (12-60) mg/dL CSF Cryptococcus Ag (NEGATIVE) Urine Immunofixation (Not Detected) HSV Source Description 06/19/18 06/18/18 06/18/18 Range/Units 04:21 21:31 17:17 WBC (4.8-10.8) K/uL RBC (4.40-5.90) Mil/uL Hgb (12.0-18.0) g/dL Hct (35.0-51.0) % MCV (80.0-94.0) fl MCH (27.0-31.0) pg MCHC (33.0-37.0) g/dL RDW (11.5-14.5) % Plt Count (130-400) K/uL MPV (7.2-11.7) fl Neut % (Auto) (50.0-75.0) % Lymph % (Auto) (20.0-40.0) % Coos % (Auto) (0.0-10.0) % Eos % (Auto) (0.0-4.0) % Baso % (Auto) (0.0-2.0) % Neut # (Auto) (1.8-7.0) K/uL Lymph # (Auto) (1.0-4.3) K/uL Coos # (Auto) (0.0-0.8) K/uL Eos # (Auto) (0.0-0.7) K/uL Baso # (Auto) (0.0-0.2) K/uL pCO2 34 L (35-45) mm/Hg pO2 122 H (80-100) mm/Hg HCO3 18.5 L (21-28) mmol/L ABG pH 7.31 L (7.35-7.45) ABG Total CO2 18.1 L (22-28) mmol/L ABG O2 Saturation 99.9 H (95-98) % ABG O2 Content 13.7 L (15-23) ML/dL ABG Base Excess -8.3 L (-2.0-3.0) mmol/L ABG Hemoglobin 9.9 L (11.7-17.4) g/dL ABG Carboxyhemoglobin 1.7 H (0.5-1.5) % POC ABG HHb (Measured) 0.1 (0.0-5.0) % ABG Methemoglobin 1.3 (0.0-3.0) % ABG O2 Capacity 13.7 L (16-24) mL/dL Bright Test Yes A-a O2 Difference 263.0 mm/Hg Hgb O2 Saturation 96.9 (95.0-98.0) % Vent Mode A/c Mechanical Rate 12 FiO2 60.0 % Tidal Volume 400 PEEP 5 Sodium (132-148) mmol/l Potassium (3.6-5.0) MMOL/L Chloride (98-107) mmol/L Carbon Dioxide (22-30) mmol/L Anion Gap (10-20) BUN (9-20) mg/dl Creatinine (0.8-1.5) mg/dl Est GFR ( Amer) Est GFR (Non-Af Amer) POC Glucose (mg/dL) 194 H 213 H (65-110) mg/dL Random Glucose (75-110) mg/dL Hemoglobin A1c (4.2-6.5) % Calcium (8.4-10.2) mg/dL Phosphorus (2.5-4.5) mg/dl Magnesium (1.6-2.3) MG/DL Total Bilirubin (0.2-1.3) mg/dl AST (17-59) U/L ALT (21-72) U/L Alkaline Phosphatase (38-126) U/L Total Protein (6.3-8.2) G/DL Albumin (3.5-5.0) g/dL Globulin (2.2-3.9) gm/dL Albumin/Globulin Ratio (1.0-2.1) Fluid Type CSF Volume (0-1) mL CSF Appearance (CLEAR) CSF WBC (0.0-5.0) /mm3 CSF RBC (0.0-0.0) /mm3 CSF Total Cell Counted CSF Neutrophils (0-0) % CSF Lymphocytes (0-0) % CSF Monos/Macrophages (0-0) % CSF Comment CSF Glucose (40-70) mg/dL CSF Total Protein (12-60) mg/dL CSF Cryptococcus Ag (NEGATIVE) Urine Immunofixation (Not Detected) HSV Source Description 06/18/18 06/18/18 06/18/18 Range/Units 12:45 12:10 12:10 WBC (4.8-10.8) K/uL RBC (4.40-5.90) Mil/uL Hgb (12.0-18.0) g/dL Hct (35.0-51.0) % MCV (80.0-94.0) fl MCH (27.0-31.0) pg MCHC (33.0-37.0) g/dL RDW (11.5-14.5) % Plt Count (130-400) K/uL MPV (7.2-11.7) fl Neut % (Auto) (50.0-75.0) % Lymph % (Auto) (20.0-40.0) % Coos % (Auto) (0.0-10.0) % Eos % (Auto) (0.0-4.0) % Baso % (Auto) (0.0-2.0) % Neut # (Auto) (1.8-7.0) K/uL Lymph # (Auto) (1.0-4.3) K/uL Coos # (Auto) (0.0-0.8) K/uL Eos # (Auto) (0.0-0.7) K/uL Baso # (Auto) (0.0-0.2) K/uL pCO2 (35-45) mm/Hg pO2 (80-100) mm/Hg HCO3 (21-28) mmol/L ABG pH (7.35-7.45) ABG Total CO2 (22-28) mmol/L ABG O2 Saturation (95-98) % ABG O2 Content (15-23) ML/dL ABG Base Excess (-2.0-3.0) mmol/L ABG Hemoglobin (11.7-17.4) g/dL ABG Carboxyhemoglobin (0.5-1.5) % POC ABG HHb (Measured) (0.0-5.0) % ABG Methemoglobin (0.0-3.0) % ABG O2 Capacity (16-24) mL/dL Bright Test A-a O2 Difference mm/Hg Hgb O2 Saturation (95.0-98.0) % Vent Mode Mechanical Rate FiO2 % Tidal Volume PEEP Sodium (132-148) mmol/l Potassium (3.6-5.0) MMOL/L Chloride (98-107) mmol/L Carbon Dioxide (22-30) mmol/L Anion Gap (10-20) BUN (9-20) mg/dl Creatinine (0.8-1.5) mg/dl Est GFR ( Amer) Est GFR (Non-Af Amer) POC Glucose (mg/dL) (65-110) mg/dL Random Glucose (75-110) mg/dL Hemoglobin A1c (4.2-6.5) % Calcium (8.4-10.2) mg/dL Phosphorus (2.5-4.5) mg/dl Magnesium (1.6-2.3) MG/DL Total Bilirubin (0.2-1.3) mg/dl AST (17-59) U/L ALT (21-72) U/L Alkaline Phosphatase (38-126) U/L Total Protein (6.3-8.2) G/DL Albumin (3.5-5.0) g/dL Globulin (2.2-3.9) gm/dL Albumin/Globulin Ratio (1.0-2.1) Fluid Type Spinal fluid CSF Volume 2 H (0-1) mL CSF Appearance Clear/colorless (CLEAR) CSF WBC 0.0 (0.0-5.0) /mm3 CSF RBC 7.0 H (0.0-0.0) /mm3 CSF Total Cell Counted TEST NOT PERFORMED CSF Neutrophils 0 (0-0) % CSF Lymphocytes 0.0 (0-0) % CSF Monos/Macrophages 0 (0-0) % CSF Comment None CSF Glucose 137 H* (40-70) mg/dL CSF Total Protein 51.0 (12-60) mg/dL CSF Cryptococcus Ag Negative (NEGATIVE) Urine Immunofixation (Not Detected) HSV Source Description 06/18/18 06/18/18 06/18/18 Range/Units 12:10 11:10 05:47 WBC (4.8-10.8) K/uL RBC (4.40-5.90) Mil/uL Hgb (12.0-18.0) g/dL Hct (35.0-51.0) % MCV (80.0-94.0) fl MCH (27.0-31.0) pg MCHC (33.0-37.0) g/dL RDW (11.5-14.5) % Plt Count (130-400) K/uL MPV (7.2-11.7) fl Neut % (Auto) (50.0-75.0) % Lymph % (Auto) (20.0-40.0) % Coos % (Auto) (0.0-10.0) % Eos % (Auto) (0.0-4.0) % Baso % (Auto) (0.0-2.0) % Neut # (Auto) (1.8-7.0) K/uL Lymph # (Auto) (1.0-4.3) K/uL Coos # (Auto) (0.0-0.8) K/uL Eos # (Auto) (0.0-0.7) K/uL Baso # (Auto) (0.0-0.2) K/uL pCO2 (35-45) mm/Hg pO2 (80-100) mm/Hg HCO3 (21-28) mmol/L ABG pH (7.35-7.45) ABG Total CO2 (22-28) mmol/L ABG O2 Saturation (95-98) % ABG O2 Content (15-23) ML/dL ABG Base Excess (-2.0-3.0) mmol/L ABG Hemoglobin (11.7-17.4) g/dL ABG Carboxyhemoglobin (0.5-1.5) % POC ABG HHb (Measured) (0.0-5.0) % ABG Methemoglobin (0.0-3.0) % ABG O2 Capacity (16-24) mL/dL Bright Test A-a O2 Difference mm/Hg Hgb O2 Saturation (95.0-98.0) % Vent Mode Mechanical Rate FiO2 % Tidal Volume PEEP Sodium (132-148) mmol/l Potassium (3.6-5.0) MMOL/L Chloride (98-107) mmol/L Carbon Dioxide (22-30) mmol/L Anion Gap (10-20) BUN (9-20) mg/dl Creatinine (0.8-1.5) mg/dl Est GFR ( Amer) Est GFR (Non-Af Amer) POC Glucose (mg/dL) 202 H (65-110) mg/dL Random Glucose (75-110) mg/dL Hemoglobin A1c 6.1 (4.2-6.5) % Calcium (8.4-10.2) mg/dL Phosphorus (2.5-4.5) mg/dl Magnesium (1.6-2.3) MG/DL Total Bilirubin (0.2-1.3) mg/dl AST (17-59) U/L ALT (21-72) U/L Alkaline Phosphatase (38-126) U/L Total Protein (6.3-8.2) G/DL Albumin (3.5-5.0) g/dL Globulin (2.2-3.9) gm/dL Albumin/Globulin Ratio (1.0-2.1) Fluid Type CSF Volume (0-1) mL CSF Appearance (CLEAR) CSF WBC (0.0-5.0) /mm3 CSF RBC (0.0-0.0) /mm3 CSF Total Cell Counted CSF Neutrophils (0-0) % CSF Lymphocytes (0-0) % CSF Monos/Macrophages (0-0) % CSF Comment CSF Glucose (40-70) mg/dL CSF Total Protein (12-60) mg/dL CSF Cryptococcus Ag (NEGATIVE) Urine Immunofixation (Not Detected) HSV Source Description Fluid 06/13/18 Range/Units 10:18 WBC (4.8-10.8) K/uL RBC (4.40-5.90) Mil/uL Hgb (12.0-18.0) g/dL Hct (35.0-51.0) % MCV (80.0-94.0) fl MCH (27.0-31.0) pg MCHC (33.0-37.0) g/dL RDW (11.5-14.5) % Plt Count (130-400) K/uL MPV (7.2-11.7) fl Neut % (Auto) (50.0-75.0) % Lymph % (Auto) (20.0-40.0) % Coos % (Auto) (0.0-10.0) % Eos % (Auto) (0.0-4.0) % Baso % (Auto) (0.0-2.0) % Neut # (Auto) (1.8-7.0) K/uL Lymph # (Auto) (1.0-4.3) K/uL [place] # (Auto) (0.0-0.8) K/uL Eos # (Auto) (0.0-0.7) K/uL Baso # (Auto) (0.0-0.2) K/uL pCO2 (35-45) mm/Hg pO2 (80-100) mm/Hg HCO3 (21-28) mmol/L ABG pH (7.35-7.45) ABG Total CO2 (22-28) mmol/L ABG O2 Saturation (95-98) % ABG O2 Content (15-23) ML/dL ABG Base Excess (-2.0-3.0) mmol/L ABG Hemoglobin (11.7-17.4) g/dL ABG Carboxyhemoglobin (0.5-1.5) % POC ABG HHb (Measured) (0.0-5.0) % ABG Methemoglobin (0.0-3.0) % ABG O2 Capacity (16-24) mL/dL Bright Test A-a O2 Difference mm/Hg Hgb O2 Saturation (95.0-98.0) % Vent Mode Mechanical Rate FiO2 % Tidal Volume PEEP Sodium (132-148) mmol/l Potassium (3.6-5.0) MMOL/L Chloride (98-107) mmol/L Carbon Dioxide (22-30) mmol/L Anion Gap (10-20) BUN (9-20) mg/dl Creatinine (0.8-1.5) mg/dl Est GFR ( Amer) Est GFR (Non-Af Amer) POC Glucose (mg/dL) (65-110) mg/dL Random Glucose (75-110) mg/dL Hemoglobin A1c (4.2-6.5) % Calcium (8.4-10.2) mg/dL Phosphorus (2.5-4.5) mg/dl Magnesium (1.6-2.3) MG/DL Total Bilirubin (0.2-1.3) mg/dl AST (17-59) U/L ALT (21-72) U/L Alkaline Phosphatase (38-126) U/L Total Protein (6.3-8.2) G/DL Albumin (3.5-5.0) g/dL Globulin (2.2-3.9) gm/dL Albumin/Globulin Ratio (1.0-2.1) Fluid Type CSF Volume (0-1) mL CSF Appearance (CLEAR) CSF WBC (0.0-5.0) /mm3 CSF RBC (0.0-0.0) /mm3 CSF Total Cell Counted CSF Neutrophils (0-0) % CSF Lymphocytes (0-0) % CSF Monos/Macrophages (0-0) % CSF Comment CSF Glucose (40-70) mg/dL CSF Total Protein (12-60) mg/dL CSF Cryptococcus Ag (NEGATIVE) Urine Immunofixation Not detected (Not Detected) HSV Source Description Laboratory Results - last 24 hr 06/13/18 06/18/18 06/18/18 10:18 05:47 11:10 WBC RBC Hgb Hct MCV MCH MCHC RDW Plt Count MPV Neut % (Auto) Lymph % (Auto) Coos % (Auto) Eos % (Auto) Baso % (Auto) Neut # (Auto) Lymph # (Auto) [place] # (Auto) Eos # (Auto) Baso # (Auto) pCO2 pO2 HCO3 ABG pH ABG Total CO2 ABG O2 Saturation ABG O2 Content ABG Base Excess ABG Hemoglobin ABG Carboxyhemoglobin POC ABG HHb (Measured) ABG Methemoglobin ABG O2 Capacity Bright Test A-a O2 Difference Hgb O2 Saturation Vent Mode Mechanical Rate FiO2 Tidal Volume PEEP Sodium Potassium Chloride Carbon Dioxide Anion Gap BUN Creatinine Est GFR ( Amer) Est GFR (Non-Af Amer) POC Glucose (mg/dL) 202 H Random Glucose Hemoglobin A1c 6.1 Calcium Phosphorus Magnesium Total Bilirubin AST ALT Alkaline Phosphatase Total Protein Albumin Globulin Albumin/Globulin Ratio Fluid Type CSF Volume CSF Appearance CSF WBC CSF RBC CSF Total Cell Counted CSF Neutrophils CSF Lymphocytes CSF Monos/Macrophages CSF Comment CSF Glucose CSF Total Protein CSF Cryptococcus Ag Urine Immunofixation Not detected HSV Source Description 06/18/18 06/18/18 06/18/18 12:10 12:10 12:10 WBC RBC Hgb Hct MCV MCH MCHC RDW Plt Count MPV Neut % (Auto) Lymph % (Auto) Coos % (Auto) Eos % (Auto) Baso % (Auto) Neut # (Auto) Lymph # (Auto) Coos # (Auto) Eos # (Auto) Baso # (Auto) pCO2 pO2 HCO3 ABG pH ABG Total CO2 ABG O2 Saturation ABG O2 Content ABG Base Excess ABG Hemoglobin ABG Carboxyhemoglobin POC ABG HHb (Measured) ABG Methemoglobin ABG O2 Capacity Bright Test A-a O2 Difference Hgb O2 Saturation Vent Mode Mechanical Rate FiO2 Tidal Volume PEEP Sodium Potassium Chloride Carbon Dioxide Anion Gap BUN Creatinine Est GFR ( Amer) Est GFR (Non-Af Amer) POC Glucose (mg/dL) Random Glucose Hemoglobin A1c Calcium Phosphorus Magnesium Total Bilirubin AST ALT Alkaline Phosphatase Total Protein Albumin Globulin Albumin/Globulin Ratio Fluid Type Spinal fluid CSF Volume 2 H CSF Appearance Clear/colorless CSF WBC 0.0 CSF RBC 7.0 H CSF Total Cell Counted TEST NOT PERFORMED CSF Neutrophils 0 CSF Lymphocytes 0.0 CSF Monos/Macrophages 0 CSF Comment None CSF Glucose CSF Total Protein CSF Cryptococcus Ag Negative Urine Immunofixation HSV Source Description Fluid 06/18/18 06/18/18 06/18/18 12:45 17:17 21:31 WBC RBC Hgb Hct MCV MCH MCHC RDW Plt Count MPV Neut % (Auto) Lymph % (Auto) [place]os % (Auto) Eos % (Auto) Baso % (Auto) Neut # (Auto) Lymph # (Auto) [place] # (Auto) Eos # (Auto) Baso # (Auto) pCO2 pO2 HCO3 ABG pH ABG Total CO2 ABG O2 Saturation ABG O2 Content ABG Base Excess ABG Hemoglobin ABG Carboxyhemoglobin POC ABG HHb (Measured) ABG Methemoglobin ABG O2 Capacity Bright Test A-a O2 Difference Hgb O2 Saturation Vent Mode Mechanical Rate FiO2 Tidal Volume PEEP Sodium Potassium Chloride Carbon Dioxide Anion Gap BUN Creatinine Est GFR ( Amer) Est GFR (Non-Af Amer) POC Glucose (mg/dL) 213 H 194 H Random Glucose Hemoglobin A1c Calcium Phosphorus Magnesium Total Bilirubin AST ALT Alkaline Phosphatase Total Protein Albumin Globulin Albumin/Globulin Ratio Fluid Type CSF Volume CSF Appearance CSF WBC CSF RBC CSF Total Cell Counted CSF Neutrophils CSF Lymphocytes CSF Monos/Macrophages CSF Comment CSF Glucose 137 H* CSF Total Protein 51.0 CSF Cryptococcus Ag Urine Immunofixation HSV Source Description 06/19/18 06/19/18 06/19/18 04:21 04:25 04:25 WBC 7.8 RBC 3.62 L Hgb 9.7 L Hct 30.0 L MCV 82.8 MCH 26.9 L MCHC 32.5 L RDW 17.2 H Plt Count 207 MPV 10.3 Neut % (Auto) 87.7 H Lymph % (Auto) 9.4 L [place] % (Auto) 2.8 Eos % (Auto) 0.0 Baso % (Auto) 0.1 Neut # (Auto) 6.8 Lymph # (Auto) 0.7 L [place] # (Auto) 0.2 Eos # (Auto) 0.0 Baso # (Auto) 0.0 pCO2 34 L pO2 122 H HCO3 18.5 L ABG pH 7.31 L ABG Total CO2 18.1 L ABG O2 Saturation 99.9 H ABG O2 Content 13.7 L ABG Base Excess -8.3 L ABG Hemoglobin 9.9 L ABG Carboxyhemoglobin 1.7 H POC ABG HHb (Measured) 0.1 ABG Methemoglobin 1.3 ABG O2 Capacity 13.7 L Bright Test Yes A-a O2 Difference 263.0 Hgb O2 Saturation 96.9 Vent Mode A/c Mechanical Rate 12 FiO2 60.0 Tidal Volume 400 PEEP 5 Sodium 145 Potassium 5.1 H Chloride 116 H Carbon Dioxide 18 L Anion Gap 16 BUN 41 H Creatinine 2.1 H Est GFR ( Amer) 38 Est GFR (Non-Af Amer) 32 POC Glucose (mg/dL) Random Glucose 178 H Hemoglobin A1c Calcium 7.8 L Phosphorus 3.7 Magnesium 1.8 Total Bilirubin 0.2 AST 21 ALT 29 Alkaline Phosphatase 105 Total Protein 5.6 L Albumin 2.5 L Globulin 3.1 Albumin/Globulin Ratio 0.8 L Fluid Type CSF Volume CSF Appearance CSF WBC CSF RBC CSF Total Cell Counted CSF Neutrophils CSF Lymphocytes CSF Monos/Macrophages CSF Comment CSF Glucose CSF Total Protein CSF Cryptococcus Ag Urine Immunofixation HSV Source Description 06/19/18 06:33 WBC RBC Hgb Hct MCV MCH MCHC RDW Plt Count MPV Neut % (Auto) Lymph % (Auto) [place] % (Auto) Eos % (Auto) Baso % (Auto) Neut # (Auto) Lymph # (Auto) [place] # (Auto) Eos # (Auto) Baso # (Auto) pCO2 pO2 HCO3 ABG pH ABG Total CO2 ABG O2 Saturation ABG O2 Content ABG Base Excess ABG Hemoglobin ABG Carboxyhemoglobin POC ABG HHb (Measured) ABG Methemoglobin ABG O2 Capacity Bright Test A-a O2 Difference Hgb O2 Saturation Vent Mode Mechanical Rate FiO2 Tidal Volume PEEP Sodium Potassium Chloride Carbon Dioxide Anion Gap BUN Creatinine Est GFR ( Amer) Est GFR (Non-Af Amer) POC Glucose (mg/dL) 158 H Random Glucose Hemoglobin A1c Calcium Phosphorus Magnesium Total Bilirubin AST ALT Alkaline Phosphatase Total Protein Albumin Globulin Albumin/Globulin Ratio Fluid Type CSF Volume CSF Appearance CSF WBC CSF RBC CSF Total Cell Counted CSF Neutrophils CSF Lymphocytes CSF Monos/Macrophages CSF Comment CSF Glucose CSF Total Protein CSF Cryptococcus Ag Urine Immunofixation HSV Source Description Radiology Impressions: Radiology Impressions Chest X-Ray 06/18/18 04:00 IMPRESSION: Little interval change in moderate congestive heart failure. Airspace disease in the right lower lobe may represent atelectasis or developing pneumonia. Follow-up is advised. Stable position of support line and tubes. Fingerstick Blood Sugar Results: 194 Review of Systems - Review of Systems Systems not reviewed;Unavailable: Intubated Critical Care Progress Note - Ventilator Checklist Head of Bed 30 Degrees: Yes Daily Sedation Vacation: Yes Daily Assessment of Readiness to Wean: Yes Daily Spontaneous Breathing Trial: Yes PUD Prophalyxis: Yes DVT Prophylaxis: Yes Oral Care with Chlorhexidine Gluconate {CHG}: Yes - Extremities/Vascular Does the Patient have a Central Venous Catheter?: Yes Does the Patient need a Central Venous Catheter?: Yes Does the Patient have a Yang Catheter?: Yes Does the Patient need a Yang Catheter?: Yes - Nutrition Nutrition: Nutrition Category Date Time Status NPO Diet [DIET] Diets 06/18/18 Breakfast Active Assessment/Plan (1) Acute respiratory failure Current Visit: Yes Status: Acute Comment: Patient was intubated for worsening mental status, airway protection and also for hypoxemia secondary to bilateral pneumonia presumptively PCP Chest x-ray ABGs this morning was reviewed Continue to assess for sedation vacation and vent weaning when patient more stable and improve oxygenation and ventilation also mental status needs to improve before consider extubation Patient is n.p.o. after midnight scheduled for bronchoscopy in the morning Continue with antibiotic coverage Aggressive pulmonary toileting chest PT and suctioning Sputum for AFB (2) Severe sepsis Current Visit: Yes Status: Acute Priority: High Comment: BP improved, no vasopressors, Continue current broad spectrum antibiotics Presumptive treatment for meningitis with Moxifloxacin, Ceftriaxone acyclovir for herpes encephalitis and bactrim for PCP ID consult (3) Acute renal failure Current Visit: Yes Status: Acute Priority: High Comment: Resolving Acute renal injury due to circulatory failure and septic shock Hypotensive improved, No vasopressors Morning Labs showing improved renal functions IVF hydration Monitor Input/Output This morning labs revealed improved renal function BUN/Cr down to to 40/2.1 (4) Altered mental status Current Visit: Yes Status: Acute Priority: High Comment: Toxic metabolic Encephalopathy Suspect central nervous system infection, On imperic coverage Spinal tap was done this morning results mostly still pending No neurological improvement Lumbar Puncture done today Head CT scan negative for bleed EEG MRI pending (5) Pneumonia Current Visit: Yes Status: Acute Priority: High Comment: Multifocal pneumonia in immune compromised AIDS patient. PCP pneumonia certainly needs to be high consideration especially with hypoxemia and Radiographic findings in addition pt could have strep pneumonia pneumonia As per sepsis, plus Solu-Medrol 40 mg IVP Q12 and bactrim presumptive treatment for PCP. NPO after midnight, Bronch in AM Current Antibiotics Moxifloxacin HCl (Avelox Iv 400mg/250ml Ns) 400 mg in 250 mls @ 250 mls/hr IVPB DAILY Trimethoprim/Sulfamethoxazole (200 mg/ Dextrose) 250 mls @ 125 mls/hr IVPB Q12 Ceftriaxone Sodium 2 gm/ (Sodium Chloride) 100 mls @ 100 mls/hr IVPB Q12 (6) HIV (human immunodeficiency virus infection) Current Visit: Yes Status: Acute Priority: High Comment: % CD4 1 L Absolute CD4 count <20 L As per ID consult we will initiate heart medication once cryptococcal meningitis is ruled out patient underwent spinal tap this morning and injured in cryptococcal testing was sent
--- NOTE | 2018-06-19 07:22 | RAD ---
Date of service: 06/19/2018 HISTORY: pt is intubated COMPARISON: Portable chest 06/18/2018 4:16 a.m.. FINDINGS: LUNGS: Endotracheal and nasogastric tubes do not appear significantly changed in position with right PICC unchanged as well. Left perihilar and right medial basilar infiltrates persist with improved aeration at the left base collecting diminished atelectasis or infiltrate here. PLEURA: No significant pleural effusion identified, no pneumothorax apparent. Patient's lower face obscures right apex somewhat. CARDIOVASCULAR: No aortic atherosclerotic calcification present. Normal cardiac size. [id number] pulmonary vascular congestion pattern persists. OSSEOUS STRUCTURES: No significant abnormalities. VISUALIZED UPPER ABDOMEN: Normal. OTHER FINDINGS: None. IMPRESSION: Improved aeration left base reflecting diminished atelectasis or infiltrate here. No interval change in medial right basilar and left perihilar. Rqui-ur-emnboihx pulmonary vascular congestion.
[2018-06-19] MEDS: Propofol 10 mg/ml 1,000 MG/100 ML VIAL IV SCH (07:30)
[2018-06-19] MEDS: Sulfamethoxazole/Trimethoprim 200 MG in Dextrose 5% In Water 250 ML IVPB SCH ×2 (09:05→22:35)
--- NOTE | 2018-06-19 09:07 | CP.PCM.PN ---
Subjective - Date & Time of Evaluation Date of Evaluation: 06/19/18 Time of Evaluation: 09:07 - Subjective Subjective: Remain intubated and sedated Vital signs noted to be stable Objective - Vital Signs/Intake and Output Vital Signs (last 24 hours): Temp Pulse Resp BP Pulse Ox 97.8 F 93 H 25 H 158/98 H 96 06/19/18 04:00 06/19/18 07:00 06/19/18 07:00 06/19/18 07:00 06/19/18 07:00 Intake and Output: 06/19/18 06/19/18 06:59 18:59 Intake Total 930 Output Total 800 Balance 130 - Medications Medications: Current Medications Acetaminophen (Tylenol 325mg Tab) 650 mg PO Q4 PRN PRN Reason: Fever >100.4 F Last Admin: 06/13/18 16:18 Dose: 650 mg Dextrose (Dextrose 50% Inj) 0 ml IV STAT PRN; Protocol PRN Reason: Hypoglycemia Protocol Dextrose (Glutose 15) 0 gm PO ONCE PRN; Protocol PRN Reason: Hypoglycemia Protocol Enoxaparin Sodium (Lovenox) 30 mg SC DAILY [facility]; Protocol Last Admin: 06/17/18 09:20 Dose: 30 mg Glucagon (Glucagen Diagnostic Kit) 0 mg IM STAT PRN; Protocol PRN Reason: Hypoglycemia Protocol Moxifloxacin HCl (Avelox Iv 400mg/250ml Ns) 400 mg in 250 mls @ 250 mls/hr IVPB DAILY@2100 [facility]; Protocol Last Admin: 06/18/18 21:30 Dose: 250 mls/hr Trimethoprim/Sulfamethoxazole (200 mg/ Dextrose) 250 mls @ 125 mls/hr IVPB Q12 [facility] Last Admin: 06/18/18 22:50 Dose: 125 mls/hr Ceftriaxone Sodium 2 gm/ (Sodium Chloride) 100 mls @ 100 mls/hr IVPB Q12@ [facility] Last Admin: 06/18/18 20:30 Dose: 100 mls/hr Propofol (Diprivan) 1,000 mg in 100 mls @ 12.574 mls/hr IV .Q7H58M [facility]; Protocol Stop: 06/19/18 23:27 Last Titration: 06/19/18 05:40 Dose: 35 mcg/kg/min, 12.574 mls/hr Insulin Human Lispro (Humalog) 0 units SC Q6H [facility]; Protocol Last Admin: 06/19/18 06:30 Dose: Not Given Lamivudine (Epivir) 150 mg PO DAILY [facility]; Protocol Methylprednisolone (Solu-Medrol) 40 mg IVP Q12 [facility] Last Admin: 06/18/18 20:15 Dose: 40 mg Pantoprazole Sodium (Protonix Inj) 40 mg IVP DAILY [facility] Last Admin: 06/18/18 08:22 Dose: 40 mg Raltegravir (Isentress) 400 mg PO BID [facility]; Protocol Sevelamer Carbonate (Renvela) 1,600 mg PO TID [facility] Last Admin: 06/18/18 18:28 Dose: 1,600 mg Sodium Bicarbonate (Sodium Bicarbonate Tab) 650 mg PO Q8 [facility] Last Admin: 06/19/18 01:24 Dose: Not Given Tenofovir Disoproxil Fumarate (Viread) 300 mg PO Q48H [facility]; Protocol Last Admin: 06/19/18 01:25 Dose: Not Given - Labs Labs: 06/19/18 04:25 06/19/18 04:25 PT 13.1 Seconds (9.8-13.1) 06/18/18 05:47 INR 1.2 06/18/18 05:47 APTT 28.9 Seconds (25.6-37.1) 06/18/18 05:47 - Constitutional Appears: No Acute Distress - Eye Exam Eye Exam: absent: Conjunctival injection - ENT Exam ENT Exam: Mucous Membranes Moist - Neck Exam Neck Exam: absent: Lymphadenopathy - Respiratory Exam Respiratory Exam: Rhonchi - Cardiovascular Exam Cardiovascular Exam: absent: Gallop, JVD, Rubs - GI/Abdominal Exam GI & Abdominal Exam: Soft, Normal Bowel Sounds - Extremities Exam Extremities Exam: absent: Calf Tenderness - Back Exam Back Exam: absent: CVA tenderness (L), CVA tenderness (R) - Neurological Exam Neurological Exam: Altered - Psychiatric Exam Psychiatric exam: Flat Affect - Skin Skin Exam: absent: Cyanosis Assessment and Plan (1) Acute renal failure Assessment & Plan: acute renal failure related to HIV or sepsis or combination Sepsis Hyperphosphatemia Hypercalcemia corrected Encephalopathy Metabolic acidosis Respiratory failure Plan Status post spinal tap yesterday Continue sodium bicarbonate Continue gentle hydration Kidney function stable for now Antibiotics as per renal doses Neurology follow-up As per primary team and intensive care unit Status: Acute Status: Acute (2) HIV (human immunodeficiency virus infection) Status: Acute
[2018-06-19] MEDS: cefTRIAXone 2 GM in Sodium Chloride 0.9% 100 ML IVPB SCH ×2 (09:14→21:09)
[2018-06-19] MEDS: MethylPREDNISolone 40 mg Vial IVP SCH ×2 (09:15→21:11)
[2018-06-19 10:47] LABS: BANDS 1 % (0-2); LYMPHOCYTE 4 % (20-50); MONOCYTE 3 % (0-10); NEUTROPHIL 92 % (42-75); NUCLEATED RED BLOOD CELL 1 % (0-0); TOTAL CELLS COUNTED 100
[2018-06-19 10:48] LABS: ANISOCYTOSIS SLIGHT; HYPOCHROMIC SLIGHT; OVALOCYTES SLIGHT; PLATELET ESTIMATE NORMAL (NORMAL); SCHISTOCYTES SLIGHT; TEARDROP CELLS SLIGHT
--- NOTE | 2018-06-19 12:07 | CP.PCM.PN ---
Subjective - Date & Time of Evaluation Date of Evaluation: 06/19/18 Time of Evaluation: 09:30 - Subjective Subjective: F/U Respiratory Failure. intubated, sedated Objective - Vital Signs/Intake and Output Vital Signs (last 24 hours): Temp Pulse Resp BP Pulse Ox 98.2 F 99 H 25 H 164/99 H 99 06/19/18 08:00 06/19/18 11:00 06/19/18 11:00 06/19/18 11:00 06/19/18 11:00 Intake and Output: 06/19/18 06/19/18 06:59 18:59 Intake Total 930 390 Output Total 800 Balance 130 390 - Medications Medications: Current Medications Acetaminophen (Tylenol 325mg Tab) 650 mg PO Q4 PRN PRN Reason: Fever >100.4 F Last Admin: 06/13/18 16:18 Dose: 650 mg Dextrose (Dextrose 50% Inj) 0 ml IV STAT PRN; Protocol PRN Reason: Hypoglycemia Protocol Dextrose (Glutose 15) 0 gm PO ONCE PRN; Protocol PRN Reason: Hypoglycemia Protocol Enoxaparin Sodium (Lovenox) 30 mg SC DAILY [facility]; Protocol Last Admin: 06/17/18 09:20 Dose: 30 mg Glucagon (Glucagen Diagnostic Kit) 0 mg IM STAT PRN; Protocol PRN Reason: Hypoglycemia Protocol Moxifloxacin HCl (Avelox Iv 400mg/250ml Ns) 400 mg in 250 mls @ 250 mls/hr IVPB DAILY@2100 [facility]; Protocol Last Admin: 06/18/18 21:30 Dose: 250 mls/hr Trimethoprim/Sulfamethoxazole (200 mg/ Dextrose) 250 mls @ 125 mls/hr IVPB Q12 [facility] Last Admin: 06/19/18 09:05 Dose: 125 mls/hr Ceftriaxone Sodium 2 gm/ (Sodium Chloride) 100 mls @ 100 mls/hr IVPB Q12@0900,2100 [facility] Last Admin: 06/19/18 09:14 Dose: 100 mls/hr Propofol (Diprivan) 1,000 mg in 100 mls @ 12.574 mls/hr IV .Q7H58M [facility]; Protocol Stop: 06/19/18 23:27 Last Admin: 06/19/18 07:30 Dose: 35 mcg/kg/min, 12.574 mls/hr Insulin Human Lispro (Humalog) 0 units SC Q6H [facility]; Protocol Last Admin: 06/19/18 09:11 Dose: Not Given Lamivudine (Epivir) 150 mg PO DAILY [facility]; Protocol Methylprednisolone (Solu-Medrol) 40 mg IVP Q12 [facility] Last Admin: 06/19/18 09:15 Dose: 40 mg Pantoprazole Sodium (Protonix Inj) 40 mg IVP DAILY [facility] Last Admin: 06/19/18 09:13 Dose: 40 mg Raltegravir (Isentress) 400 mg PO BID [facility]; Protocol Sevelamer Carbonate (Renvela) 1,600 mg PO TID [facility] Last Admin: 06/19/18 09:14 Dose: Not Given Sodium Bicarbonate (Sodium Bicarbonate Tab) 650 mg PO Q8 [facility] Last Admin: 06/19/18 01:24 Dose: Not Given Tenofovir Disoproxil Fumarate (Viread) 300 mg PO Q48H [facility]; Protocol Last Admin: 06/19/18 01:25 Dose: Not Given - Labs Labs: 06/19/18 04:25 06/19/18 04:25 PT 13.1 Seconds (9.8-13.1) 06/18/18 05:47 INR 1.2 06/18/18 05:47 APTT 28.9 Seconds (25.6-37.1) 06/18/18 05:47 - Constitutional Appears: Chronically Ill - Head Exam Head Exam: NORMAL INSPECTION - Eye Exam Eye Exam: PERRL - ENT Exam Additional comments: Intubated. OGT - Neck Exam Neck Exam: Normal Inspection - Respiratory Exam Respiratory Exam: Decreased Breath Sounds (at bases), Rhonchi (bases) - Cardiovascular Exam Cardiovascular Exam: REGULAR RHYTHM - GI/Abdominal Exam GI & Abdominal Exam: Normal Bowel Sounds - Exam Additional comments: Yang Cath - Extremities Exam Extremities Exam: Normal Inspection - Neurological Exam Additional comments: intubated, sedated - Psychiatric Exam Additional comments: Sedated - Skin Skin Exam: Warm Assessment and Plan (1) Respiratory failure Status: Acute (2) Altered mental status Status: Acute (3) HIV (human immunodeficiency virus infection) Status: Acute (4) Fever Status: Acute (5) Pneumonia Status: Acute (6) Severe sepsis Status: Acute (7) Acute renal failure Status: Acute (8) Diabetes mellitus Status: Acute - Assessment and Plan (Free Text) Plan: Bronchoscopy re-scheeduled for tomorrow 11am, Trachasp C-S pending, yeast (pos), AFB smear(neg), LP C-S (neg), Debi Ink (neg), continue Bactrim, Avelox, Rocephin, HRT, ventilatory support and rest of treatment, CT Head today Critical care time: 37 min.
[2018-06-19] MEDS ORDERED: Morphine 4 MG/ML VIAL IVP ONE (12:14)
--- NOTE | 2018-06-19 13:07 | CP.PCM.PN ---
Subjective - Date & Time of Evaluation Date of Evaluation: 06/19/18 Time of Evaluation: 13:07 - Subjective Subjective: Neuro Follow-Up Note: Mr. Henry was evaluated this afternoon in the ICU. He remains intubated and on sedation. He remains on isolation. ROS unobtainable due to pt's condition. Chart reviewed, events noted. Discussed with primary RN need for CT head today as MRI Brain still has not been done. Objective - Vital Signs/Intake and Output Vital Signs (last 24 hours): Temp Pulse Resp BP Pulse Ox 98.4 F 105 H 35 H 159/100 H 96 06/19/18 12:00 06/19/18 12:00 06/19/18 12:00 06/19/18 12:00 06/19/18 12:00 Intake and Output: 06/19/18 06/19/18 06:59 18:59 Intake Total 930 420 Output Total 800 Balance 130 420 - Medications Medications: Current Medications Acetaminophen (Tylenol 325mg Tab) 650 mg PO Q4 PRN PRN Reason: Fever >100.4 F Last Admin: 06/13/18 16:18 Dose: 650 mg Dextrose (Dextrose 50% Inj) 0 ml IV STAT PRN; Protocol PRN Reason: Hypoglycemia Protocol Dextrose (Glutose 15) 0 gm PO ONCE PRN; Protocol PRN Reason: Hypoglycemia Protocol Enoxaparin Sodium (Lovenox) 30 mg SC DAILY [facility]; Protocol Last Admin: 06/17/18 09:20 Dose: 30 mg Glucagon (Glucagen Diagnostic Kit) 0 mg IM STAT PRN; Protocol PRN Reason: Hypoglycemia Protocol Moxifloxacin HCl (Avelox Iv 400mg/250ml Ns) 400 mg in 250 mls @ 250 mls/hr IVPB DAILY@2100 [facility]; Protocol Last Admin: 06/18/18 21:30 Dose: 250 mls/hr Trimethoprim/Sulfamethoxazole (200 mg/ Dextrose) 250 mls @ 125 mls/hr IVPB Q12 [facility] Last Admin: 06/19/18 09:05 Dose: 125 mls/hr Ceftriaxone Sodium 2 gm/ (Sodium Chloride) 100 mls @ 100 mls/hr IVPB Q12@0900,2100 [facility] Last Admin: 06/19/18 09:14 Dose: 100 mls/hr Propofol (Diprivan) 1,000 mg in 100 mls @ 12.574 mls/hr IV .Q7H58M [facility]; Protocol Stop: 06/19/18 23:27 Last Admin: 06/19/18 07:30 Dose: 35 mcg/kg/min, 12.574 mls/hr Insulin Human Lispro (Humalog) 0 units SC Q6H [facility]; Protocol Last Admin: 06/19/18 09:11 Dose: Not Given Lamivudine (Epivir) 150 mg PO DAILY [facility]; Protocol Methylprednisolone (Solu-Medrol) 40 mg IVP Q12 [facility] Last Admin: 06/19/18 09:15 Dose: 40 mg Pantoprazole Sodium (Protonix Inj) 40 mg IVP DAILY [facility] Last Admin: 06/19/18 09:13 Dose: 40 mg Raltegravir (Isentress) 400 mg PO BID [facility]; Protocol Sevelamer Carbonate (Renvela) 1,600 mg PO TID [facility] Last Admin: 06/19/18 09:14 Dose: Not Given Sodium Bicarbonate (Sodium Bicarbonate Tab) 650 mg PO Q8 [facility] Last Admin: 06/19/18 01:24 Dose: Not Given Tenofovir Disoproxil Fumarate (Viread) 300 mg PO Q48H [facility]; Protocol Last Admin: 06/19/18 01:25 Dose: Not Given - Labs Labs: 06/19/18 04:25 06/19/18 04:25 PT 13.1 Seconds (9.8-13.1) 06/18/18 05:47 INR 1.2 06/18/18 05:47 APTT 28.9 Seconds (25.6-37.1) 06/18/18 05:47 - Constitutional Appears: Other (intubated) - Head Exam Head Exam: ATRAUMATIC, NORMAL INSPECTION, NORMOCEPHALIC - Eye Exam Eye Exam: PERRL Pupil Exam: PERRL Additional comments: does not open eyes spontaneously or to sternal rub like yesterday + pupil response to light (approx 2-3 mm b/l) + dolls eyes; + corneal reflex, however, sluggish b/l - ENT Exam ENT Exam: Mucous Membranes Moist Additional comments: intubated OGT - Neck Exam Neck Exam: Normal Inspection - Respiratory Exam Respiratory Exam: absent: NORMAL BREATHING PATTERN (intubated) - GI/Abdominal Exam Additional comments: OGT - Extremities Exam Extremities Exam: absent: Full ROM Additional comments: Generalized edema noted to BUE and BLE No non-purposeful movements to BUE and BLE noted today; pt still noted to have on soft wrist restraints BLE drop immediately to bed after being raise. - Neurological Exam Neurological Exam: absent: Alert, Awake, Normal Gait, Oriented x3, Reflexes Normal Additional comments: Pt remains intubated on sedation. Unable to follow commands. Does not open eyes spontaneously or to sternal rub like yesterday. No non-purposeful movements to BUE and BLE noted today; pt still noted to have on soft wrist restraints BLE drop immediately to bed after being raise. No tremors; no clonus noted Unable to elicit plantar response b/l. Hyporeflexia noted BLE + pupil response to light (approx 2-3 mm b/l) + dolls eyes; + corneal reflex, however, sluggish b/l; + gag reflex Unable to assess strength and sensation 2/2 pt's condition. - Psychiatric Exam Additional comments: intubated and sedated - Skin Skin Exam: Normal Color Assessment and Plan (1) Altered mental status Assessment & Plan: Imaging reviewed: -Non-contrast CT Head (06/11/18): No acute intracranial abnormality. Moderate global parenchymal volume loss. -ECHO (06/12/18): EF 55-60% -VEEG was done last week---results pending. -MRI Brain without contrast ordered since 06/12/18 to r/o cva or any other acute intracranial involvement, it still has not been done--I have cancelled the MRI for now and discussed with the primary RN to proceed with the non-contrast CT Head ordered yesterday which was not done when requested either. I will f/u with the results once it is completed. -Dr. Low spoke with ID over the weekend regarding concerns and need for LP---LP was done yesterday in ICU--results reviewed; still pending results for CSF IgG and VDRL -Still pending results for HSV I and II DNA PCR -Maintain isolation as ordered. -Continue ICU management and recommendations per ID and other consults. -Notify neuro team of any acute changes in pt's condition. Case discussed with Dr. Pandey Status: Acute
--- NOTE | 2018-06-19 15:32 | CP.PCM.PN ---
Subjective - Date & Time of Evaluation Date of Evaluation: 06/19/18 Time of Evaluation: 09:00 - Subjective Subjective: afebrile opens eyes - gaze appears upward to the left ? intubated Objective - Vital Signs/Intake and Output Vital Signs (last 24 hours): Temp Pulse Resp BP Pulse Ox 98.4 F 104 H 24 129/80 100 06/19/18 12:00 06/19/18 13:00 06/19/18 13:00 06/19/18 13:00 06/19/18 13:00 Intake and Output: 06/19/18 06/19/18 06:59 18:59 Intake Total 930 420 Output Total 800 Balance 130 420 - Medications Medications: Current Medications Acetaminophen (Tylenol 325mg Tab) 650 mg PO Q4 PRN PRN Reason: Fever >100.4 F Last Admin: 06/13/18 16:18 Dose: 650 mg Dextrose (Dextrose 50% Inj) 0 ml IV STAT PRN; Protocol PRN Reason: Hypoglycemia Protocol Dextrose (Glutose 15) 0 gm PO ONCE PRN; Protocol PRN Reason: Hypoglycemia Protocol Enoxaparin Sodium (Lovenox) 30 mg SC DAILY [facility]; Protocol Last Admin: 06/17/18 09:20 Dose: 30 mg Glucagon (Glucagen Diagnostic Kit) 0 mg IM STAT PRN; Protocol PRN Reason: Hypoglycemia Protocol Moxifloxacin HCl (Avelox Iv 400mg/250ml Ns) 400 mg in 250 mls @ 250 mls/hr IVPB DAILY@2100 [facility]; Protocol Last Admin: 06/18/18 21:30 Dose: 250 mls/hr Trimethoprim/Sulfamethoxazole (200 mg/ Dextrose) 250 mls @ 125 mls/hr IVPB Q12 [facility] Last Admin: 06/19/18 09:05 Dose: 125 mls/hr Ceftriaxone Sodium 2 gm/ (Sodium Chloride) 100 mls @ 100 mls/hr IVPB Q12@0900,2100 [facility] Last Admin: 06/19/18 09:14 Dose: 100 mls/hr Propofol (Diprivan) 1,000 mg in 100 mls @ 12.574 mls/hr IV .Q7H58M [facility]; Protocol Stop: 06/19/18 23:27 Last Admin: 06/19/18 07:30 Dose: 35 mcg/kg/min, 12.574 mls/hr Insulin Human Lispro (Humalog) 0 units SC Q6H [facility]; Protocol Last Admin: 06/19/18 09:11 Dose: Not Given Lamivudine (Epivir) 150 mg PO DAILY [facility]; Protocol Last Admin: 06/19/18 14:56 Dose: 150 mg Methylprednisolone (Solu-Medrol) 40 mg IVP Q12 [facility] Last Admin: 06/19/18 09:15 Dose: 40 mg Pantoprazole Sodium (Protonix Inj) 40 mg IVP DAILY [facility] Last Admin: 06/19/18 09:13 Dose: 40 mg Raltegravir (Isentress) 400 mg PO BID [facility]; Protocol Last Admin: 06/19/18 14:53 Dose: 400 mg Sevelamer Carbonate (Renvela) 1,600 mg PO TID [facility] Last Admin: 06/19/18 14:57 Dose: 1,600 mg Sodium Bicarbonate (Sodium Bicarbonate Tab) 650 mg PO Q8 [facility] Last Admin: 06/19/18 14:59 Dose: 650 mg Tenofovir Disoproxil Fumarate (Viread) 300 mg PO Q48H [facility]; Protocol Last Admin: 06/19/18 01:25 Dose: Not Given - Labs Labs: 06/19/18 04:25 06/19/18 04:25 PT 13.1 Seconds (9.8-13.1) 06/18/18 05:47 INR 1.2 06/18/18 05:47 APTT 28.9 Seconds (25.6-37.1) 06/18/18 05:47 - Constitutional Appears: Confused, Cachectic, Chronically Ill - Head Exam Head Exam: NORMOCEPHALIC - Eye Exam Eye Exam: absent: Scleral icterus - ENT Exam ENT Exam: Mucous Membranes Dry - Respiratory Exam Respiratory Exam: Decreased Breath Sounds, Rhonchi. absent: Chest Wall Tenderness - Cardiovascular Exam Cardiovascular Exam: REGULAR RHYTHM, +S1, +S2 - GI/Abdominal Exam GI & Abdominal Exam: Distended, Soft. absent: Tenderness - Rectal Exam Rectal Exam: Deferred - Exam Exam: NORMAL INSPECTION - Extremities Exam Extremities Exam: absent: Pedal Edema - Back Exam Back Exam: absent: CVA tenderness (L), CVA tenderness (R) - Neurological Exam Neurological Exam: Altered - Psychiatric Exam Psychiatric exam: Depressed - Skin Skin Exam: Dry Assessment and Plan (1) Acute renal failure Status: Acute (2) Altered mental status Status: Acute (3) Diabetes mellitus Status: Acute (4) HIV (human immunodeficiency virus infection) Status: Acute (5) Pneumonia Status: Acute (6) Encephalopathy Status: Acute - Assessment and Plan (Free Text) Assessment: for possible FOB/BAL to r/o PCP on IV antibiotics neuro status unchanged awaiting MRI LP neg for cryptococcus HAART rx started prognosis remains poor
--- NOTE | 2018-06-19 15:55 | RAD ---
Date of service: 06/19/2018 PROCEDURE: CHEST RADIOGRAPH, 1 VIEW HISTORY: desatting COMPARISON: June 19, 2018 Time of the most recent examination: 04:17. FINDINGS: LUNGS: Stable multifocal infiltrates. PLEURA: No pneumothorax or pleural fluid seen. CARDIOVASCULAR: No significant interval change compared to the prior examination(s). OSSEOUS STRUCTURES: No significant abnormalities. VISUALIZED UPPER ABDOMEN: Normal. OTHER FINDINGS: Stable, satisfactory position ventilatory, vascular and nasogastric apparatus. IMPRESSION: No significant interval change compared to the prior examination(s).
--- NOTE | 2018-06-19 18:57 | CT ---
Date of service: 06/19/2018 PROCEDURE: CT HEAD WITHOUT CONTRAST. HISTORY: r/o cva, r/o acute intracranial changes COMPARISON: 06/11/2018. TECHNIQUE: Axial computed tomography images were obtained through the head/brain without intravenous contrast. Supplemental Coronal and Sagittal projections created and reviewed. Radiation dose: Total exam DLP = 1225.65 mGy-cm. This CT exam was performed using one or more of the following dose reduction techniques: Automated exposure control, adjustment of the mA and/or kV according to patient size, and/or use of iterative reconstruction technique. FINDINGS: HEMORRHAGE: No intracranial hemorrhage. BRAIN: No mass effect or edema. Cortical and cerebellar atrophy, periventricular small vessel disease. VENTRICLES: Unremarkable. No hydrocephalus. CALVARIUM: Unremarkable. PARANASAL SINUSES: Unremarkable as visualized. No significant inflammatory changes. MASTOID AIR CELLS: Unremarkable as visualized. No inflammatory changes. OTHER FINDINGS: None. IMPRESSION: No acute intracranial abnormalities. No significant findings to account for the clinical presentation. No significant interval change compared to the prior examination(s).
[2018-06-19] MEDS: Moxifloxacin IV 400mg/250ml NS 400 MG/250 ML BAG IVPB SCH (21:09)
[2018-06-20 00:07] LABS: ABG ALLEN TEST YES; ARTERIAL BLOOD GAS HCO3 19.1 mmol/L (21-28); ARTERIAL BLOOD GAS HEMOGLOBIN 10.3 g/dL (11.7-17.4); ARTERIAL BLOOD GAS O2 CAPACITY 14.1 mL/dL (16-24); ARTERIAL BLOOD GAS O2 CONTENT 13.9 ML/dL (15-23); ARTERIAL BLOOD GAS O2 SAT 98.7 % (95-98); ARTERIAL BLOOD GAS PCO2 35 mm/Hg (35-45); ARTERIAL BLOOD GAS PH 7.32 (7.35-7.45); ARTERIAL BLOOD GAS PO2 84 mm/Hg (80-100); ARTERIAL BLOOD GAS TCO2 19.1 mmol/L (22-28)
[2018-06-20] MEDS: Insulin Lispro (humaLOG) 100 Units/ml Inj SC SCH ×4 (04:22→21:25)
[2018-06-20 05:18] LABS: ABG ALLEN TEST YES; ARTERIAL BLOOD GAS HCO3 19.5 mmol/L (21-28); ARTERIAL BLOOD GAS HEMOGLOBIN 10.2 g/dL (11.7-17.4); ARTERIAL BLOOD GAS O2 CAPACITY 14.2 mL/dL (16-24); ARTERIAL BLOOD GAS O2 CONTENT 14.2 ML/dL (15-23); ARTERIAL BLOOD GAS O2 SAT 100.1 % (95-98); ARTERIAL BLOOD GAS PCO2 37 mm/Hg (35-45); ARTERIAL BLOOD GAS PH 7.31 (7.35-7.45); ARTERIAL BLOOD GAS PO2 132 mm/Hg (80-100); ARTERIAL BLOOD GAS TCO2 19.7 mmol/L (22-28)
[2018-06-20 05:31] LABS: HEMOGLOBIN 10.1 g/dL (12.0-18.0); MEAN CELL VOLUME 82.9 fl (80.0-94.0); MEAN CORPUSCULAR HEMOGLOBIN 27.2 pg (27.0-31.0); MEAN CORPUSCULAR HGB CONC 32.8 g/dL (33.0-37.0); RBC 3.72 Mil/uL (4.40-5.90); RED CELL DISTRIBUTION WIDTH 17.8 % (11.5-14.5); WHITE BLOOD COUNT 10.6 K/uL (4.8-10.8)
[2018-06-20 05:59] LABS: ALB/GLOB RATIO 0.8 (1.0-2.1); ALBUMIN 2.7 g/dL (3.5-5.0); CALCIUM 8.5 mg/dL (8.4-10.2)
--- NOTE | 2018-06-20 08:02 | RAD ---
Date of service: 06/20/2018 HISTORY: Follow up bilateral infiltrates/Respiratory distress COMPARISON: 06/19/2018 FINDINGS: LUNGS: The bilateral low-density ground-glass like opacities over each mid 1/3 lung zone appear less dense. Some partial improvements/partial improved aeration compatible with this. Apparent inferior left lateral skin fold-perceived lung markings peripheral to its edge. Endotracheal tube tip 3 cm cephalad to the cassie. Similar in position. PLEURA: Small left pleural effusion-concomitant inferolateral pleural thickening-some possible concomitant loculation here not excluded. Multiple skin folds can simulate this. CARDIOVASCULAR: No aortic atherosclerotic calcification present. Right PICC line inserted tip superior vena cava-tip probably similar in position. Borderline minimal cardiomegaly. Mild pulmonary vascular congestion suspect OSSEOUS STRUCTURES: Thoracic spondylosis. Bilateral shoulder arthrosis. Tiny accessory ossifications centers border each inferior glenoid rim versus tiny loose bodies. No change. VISUALIZED UPPER ABDOMEN: Nasogastric tube courses along stomach-tip beyond the inferior edge of this image. Similar course suggested. OTHER FINDINGS: None. IMPRESSION: Persistent, albeit slightly improved in appearance bilateral ground-glass airspace opacities-interstitial/airspace coalescent infiltrates and/or areas of pulmonary edema are compatible with this. Interval small left pleural effusion-as referenced above. Other findings as above.
[2018-06-20] MEDS: cefTRIAXone 2 GM in Sodium Chloride 0.9% 100 ML IVPB SCH ×2 (09:33→20:05)
[2018-06-20] MEDS: MethylPREDNISolone 40 mg Vial IVP SCH ×2 (09:34→20:13)
[2018-06-20] MEDS: Sulfamethoxazole/Trimethoprim 200 MG in Dextrose 5% In Water 250 ML IVPB SCH ×2 (10:26→21:24)
--- NOTE | 2018-06-20 12:15 | CP.PCM.PN ---
Subjective - Date & Time of Evaluation Date of Evaluation: 06/20/18 Time of Evaluation: 10:40 - Subjective Subjective: Neuro Follow-Up Note: Mr. Henry was evaluated this afternoon in the ICU. He remains intubated, no sedation. He remains on isolation. ROS unobtainable due to pt's condition. Chart reviewed, events noted. Objective - Vital Signs/Intake and Output Vital Signs (last 24 hours): Temp Pulse Resp BP Pulse Ox 100.3 F H 97 H 28 H 146/81 100 06/20/18 08:00 06/20/18 11:00 06/20/18 11:00 06/20/18 11:00 06/20/18 11:00 Intake and Output: 06/20/18 06/20/18 06:59 18:59 Intake Total 1220 450 Output Total 725 Balance 495 450 - Medications Medications: Current Medications Acetaminophen (Tylenol 325mg Tab) 650 mg PO Q4 PRN PRN Reason: Fever >100.4 F Last Admin: 06/13/18 16:18 Dose: 650 mg Acetaminophen (Tylenol 650 Mg Supp) 650 mg RI Q6 PRN PRN Reason: Fever >100.4 F Last Admin: 06/20/18 02:30 Dose: 650 mg Dextrose (Dextrose 50% Inj) 0 ml IV STAT PRN; Protocol PRN Reason: Hypoglycemia Protocol Dextrose (Glutose 15) 0 gm PO ONCE PRN; Protocol PRN Reason: Hypoglycemia Protocol Enoxaparin Sodium (Lovenox) 30 mg SC DAILY [facility]; Protocol Last Admin: 06/17/18 09:20 Dose: 30 mg Glucagon (Glucagen Diagnostic Kit) 0 mg IM STAT PRN; Protocol PRN Reason: Hypoglycemia Protocol Moxifloxacin HCl (Avelox Iv 400mg/250ml Ns) 400 mg in 250 mls @ 250 mls/hr IVPB DAILY@2100 [facility]; Protocol Last Admin: 06/19/18 21:09 Dose: 250 mls/hr Trimethoprim/Sulfamethoxazole (200 mg/ Dextrose) 250 mls @ 125 mls/hr IVPB Q12 [facility] Last Admin: 06/20/18 10:26 Dose: 125 mls/hr Ceftriaxone Sodium 2 gm/ (Sodium Chloride) 100 mls @ 100 mls/hr IVPB Q12@0900,2100 [facility] Last Admin: 06/20/18 09:33 Dose: 100 mls/hr Insulin Human Lispro (Humalog) 0 units SC Q6H [facility]; Protocol Last Admin: 06/20/18 04:22 Dose: 2 units Lamivudine (Epivir) 150 mg PO DAILY [facility]; Protocol Last Admin: 06/20/18 11:26 Dose: 150 mg Lorazepam (Ativan) 2 mg IVP Q4 PRN PRN Reason: Agitation Last Admin: 06/19/18 16:49 Dose: 2 mg Methylprednisolone (Solu-Medrol) 40 mg IVP Q12 [facility] Last Admin: 06/20/18 09:34 Dose: 40 mg Pantoprazole Sodium (Protonix Inj) 40 mg IVP DAILY [facility] Last Admin: 06/20/18 09:33 Dose: 40 mg Raltegravir (Isentress) 400 mg PO BID [facility]; Protocol Last Admin: 06/20/18 09:33 Dose: Not Given Sevelamer Carbonate (Renvela) 1,600 mg PO TID [facility] Last Admin: 06/20/18 09:33 Dose: Not Given Sodium Bicarbonate (Sodium Bicarbonate Tab) 650 mg PO Q8 [facility] Last Admin: 06/20/18 09:34 Dose: Not Given Tenofovir Disoproxil Fumarate (Viread) 300 mg PO Q48H [facility]; Protocol Last Admin: 06/19/18 01:25 Dose: Not Given - Labs Labs: 06/20/18 04:30 06/20/18 04:30 PT 13.1 Seconds (9.8-13.1) 06/18/18 05:47 INR 1.2 06/18/18 05:47 APTT 28.9 Seconds (25.6-37.1) 06/18/18 05:47 - Constitutional Appears: Other (intubated) - Head Exam Head Exam: NORMOCEPHALIC - Eye Exam Additional comments: Eyes open spontaneously; no specific eye opening to sternal rub + pupil response to light (approx 2-3 mm b/l) + dolls eyes; + corneal reflex, however, sluggish b/l - ENT Exam ENT Exam: Mucous Membranes Moist Additional comments: intubated - Neck Exam Neck Exam: Normal Inspection - Respiratory Exam Additional comments: intubated - Cardiovascular Exam Cardiovascular Exam: Tachycardia - GI/Abdominal Exam Additional comments: OGT - Extremities Exam Additional comments: Generalized edema noted to BUE and BLE No non-purposeful movements to BUE and BLE noted today; pt still noted to have on soft wrist restraints BLE drop immediately to bed after being raise. - Neurological Exam Neurological Exam: Altered Additional comments: Pt remains intubated, no sedation. Unable to follow commands. Eyes open spontaneously but not specific eye opening to sternal rub. No non-purposeful movements to BUE and BLE noted today; pt still noted to have on soft wrist restraints BLE drop immediately to bed after being raise. No tremors; no clonus noted Unable to elicit plantar response b/l. Hyporeflexia noted BLE + pupil response to light (approx 2-3 mm b/l) + dolls eyes; + corneal reflex, however, sluggish b/l; + gag reflex Unable to assess strength and sensation 2/2 pt's condition. - Psychiatric Exam Additional comments: intubated - Skin Skin Exam: Diaphoretic Assessment and Plan (1) Altered mental status Assessment & Plan: Imaging reviewed: -CT Head (06/20/18): No acute intracranial abnormalities. No significant findings to account for the clinical presentation. No significant interval change compared to the prior examination(s). -Non-contrast CT Head (06/11/18): No acute intracranial abnormality. Moderate global parenchymal volume loss. -ECHO (06/12/18): EF 55-60% -VEEG: low amplitude, no seizures. -LP results reviewed; still pending results for CSF IgG; VDRL; toxo. gondii IgG. -Maintain isolation as ordered. -Continue ICU management and recommendations per ID and other consults. -Notify neuro team of any acute changes in pt's condition. Case discussed with Dr. Pandey Status: Acute
--- NOTE | 2018-06-20 12:28 | CP.PCM.PN ---
Objective - Vital Signs/Intake and Output Vital Signs (last 24 hours): Temp Pulse Resp BP Pulse Ox 100.3 F H 97 H 28 H 146/81 100 06/20/18 08:00 06/20/18 11:00 06/20/18 11:00 06/20/18 11:00 06/20/18 11:00 Intake and Output: 06/20/18 06/20/18 06:59 18:59 Intake Total 1220 450 Output Total 725 Balance 495 450 - Medications Medications: Current Medications Acetaminophen (Tylenol 325mg Tab) 650 mg PO Q4 PRN PRN Reason: Fever >100.4 F Last Admin: 06/13/18 16:18 Dose: 650 mg Acetaminophen (Tylenol 650 Mg Supp) 650 mg [place] Q6 PRN PRN Reason: Fever >100.4 F Last Admin: 06/20/18 02:30 Dose: 650 mg Dextrose (Dextrose 50% Inj) 0 ml IV STAT PRN; Protocol PRN Reason: Hypoglycemia Protocol Dextrose (Glutose 15) 0 gm PO ONCE PRN; Protocol PRN Reason: Hypoglycemia Protocol Enoxaparin Sodium (Lovenox) 30 mg SC DAILY [facility]; Protocol Last Admin: 06/17/18 09:20 Dose: 30 mg Glucagon (Glucagen Diagnostic Kit) 0 mg IM STAT PRN; Protocol PRN Reason: Hypoglycemia Protocol Moxifloxacin HCl (Avelox Iv 400mg/250ml Ns) 400 mg in 250 mls @ 250 mls/hr IVPB DAILY@2100 [facility]; Protocol Last Admin: 06/19/18 21:09 Dose: 250 mls/hr Trimethoprim/Sulfamethoxazole (200 mg/ Dextrose) 250 mls @ 125 mls/hr IVPB Q12 [facility] Last Admin: 06/20/18 10:26 Dose: 125 mls/hr Ceftriaxone Sodium 2 gm/ (Sodium Chloride) 100 mls @ 100 mls/hr IVPB Q12@0900,2100 [facility] Last Admin: 06/20/18 09:33 Dose: 100 mls/hr Insulin Human Lispro (Humalog) 0 units SC Q6H [facility]; Protocol Last Admin: 06/20/18 04:22 Dose: 2 units Lamivudine (Epivir) 150 mg PO DAILY [facility]; Protocol Last Admin: 06/20/18 11:26 Dose: 150 mg Lorazepam (Ativan) 2 mg IVP Q4 PRN PRN Reason: Agitation Last Admin: 06/19/18 16:49 Dose: 2 mg Methylprednisolone (Solu-Medrol) 40 mg IVP Q12 [facility] Last Admin: 06/20/18 09:34 Dose: 40 mg Pantoprazole Sodium (Protonix Inj) 40 mg IVP DAILY [facility] Last Admin: 06/20/18 09:33 Dose: 40 mg Raltegravir (Isentress) 400 mg PO BID [facility]; Protocol Last Admin: 06/20/18 09:33 Dose: Not Given Sevelamer Carbonate (Renvela) 1,600 mg PO TID [facility] Last Admin: 06/20/18 09:33 Dose: Not Given Sodium Bicarbonate (Sodium Bicarbonate Tab) 650 mg PO Q8 [facility] Last Admin: 06/20/18 09:34 Dose: Not Given Tenofovir Disoproxil Fumarate (Viread) 300 mg PO Q48H [facility]; Protocol Last Admin: 06/19/18 01:25 Dose: Not Given - Labs Labs: 06/20/18 04:30 06/20/18 04:30 PT 13.1 Seconds (9.8-13.1) 06/18/18 05:47 INR 1.2 06/18/18 05:47 APTT 28.9 Seconds (25.6-37.1) 06/18/18 05:47 Assessment and Plan (1) Respiratory failure Status: Acute (2) Altered mental status Status: Acute (3) HIV (human immunodeficiency virus infection) Status: Acute (4) Fever Status: Acute (5) Pneumonia Status: Acute (6) Severe sepsis Status: Acute (7) Acute renal failure Status: Acute (8) Diabetes mellitus Status: Acute
--- NOTE | 2018-06-20 12:55 | CP.PCM.PN ---
Subjective - Date & Time of Evaluation Date of Evaluation: 06/20/18 Time of Evaluation: 09:50 - Subjective Subjective: intubated, sedated, restless, RR 30/m Objective - Vital Signs/Intake and Output Vital Signs (last 24 hours): Temp Pulse Resp BP Pulse Ox 99.5 F 99 H 32 H 159/88 H 100 06/20/18 12:00 06/20/18 12:00 06/20/18 12:00 06/20/18 12:00 06/20/18 12:00 Intake and Output: 06/20/18 06/20/18 06:59 18:59 Intake Total 1220 450 Output Total 725 Balance 495 450 - Medications Medications: Current Medications Acetaminophen (Tylenol 325mg Tab) 650 mg PO Q4 PRN PRN Reason: Fever >100.4 F Last Admin: 06/13/18 16:18 Dose: 650 mg Acetaminophen (Tylenol 650 Mg Supp) 650 mg [place] Q6 PRN PRN Reason: Fever >100.4 F Last Admin: 06/20/18 02:30 Dose: 650 mg Dextrose (Dextrose 50% Inj) 0 ml IV STAT PRN; Protocol PRN Reason: Hypoglycemia Protocol Dextrose (Glutose 15) 0 gm PO ONCE PRN; Protocol PRN Reason: Hypoglycemia Protocol Enoxaparin Sodium (Lovenox) 30 mg SC DAILY [facility]; Protocol Last Admin: 06/17/18 09:20 Dose: 30 mg Glucagon (Glucagen Diagnostic Kit) 0 mg IM STAT PRN; Protocol PRN Reason: Hypoglycemia Protocol Moxifloxacin HCl (Avelox Iv 400mg/250ml Ns) 400 mg in 250 mls @ 250 mls/hr IVPB DAILY@2100 [facility]; Protocol Last Admin: 06/19/18 21:09 Dose: 250 mls/hr Trimethoprim/Sulfamethoxazole (200 mg/ Dextrose) 250 mls @ 125 mls/hr IVPB Q12 [facility] Last Admin: 06/20/18 10:26 Dose: 125 mls/hr Ceftriaxone Sodium 2 gm/ (Sodium Chloride) 100 mls @ 100 mls/hr IVPB Q12@0900,2100 [facility] Last Admin: 06/20/18 09:33 Dose: 100 mls/hr Insulin Human Lispro (Humalog) 0 units SC Q6H [facility]; Protocol Last Admin: 06/20/18 04:22 Dose: 2 units Lamivudine (Epivir) 150 mg PO DAILY [facility]; Protocol Last Admin: 06/20/18 11:26 Dose: 150 mg Lorazepam (Ativan) 2 mg IVP Q4 PRN PRN Reason: Agitation Last Admin: 06/19/18 16:49 Dose: 2 mg Methylprednisolone (Solu-Medrol) 40 mg IVP Q12 [facility] Last Admin: 06/20/18 09:34 Dose: 40 mg Pantoprazole Sodium (Protonix Inj) 40 mg IVP DAILY [facility] Last Admin: 06/20/18 09:33 Dose: 40 mg Raltegravir (Isentress) 400 mg PO BID [facility]; Protocol Last Admin: 06/20/18 09:33 Dose: Not Given Sevelamer Carbonate (Renvela) 1,600 mg PO TID [facility] Last Admin: 06/20/18 09:33 Dose: Not Given Sodium Bicarbonate (Sodium Bicarbonate Tab) 650 mg PO Q8 [facility] Last Admin: 06/20/18 09:34 Dose: Not Given Tenofovir Disoproxil Fumarate (Viread) 300 mg PO Q48H [facility]; Protocol Last Admin: 06/19/18 01:25 Dose: Not Given - Labs Labs: 06/20/18 04:30 06/20/18 04:30 PT 13.1 Seconds (9.8-13.1) 06/18/18 05:47 INR 1.2 06/18/18 05:47 APTT 28.9 Seconds (25.6-37.1) 06/18/18 05:47 - Constitutional Appears: Chronically Ill - Head Exam Head Exam: NORMAL INSPECTION - Eye Exam Eye Exam: PERRL - ENT Exam Additional comments: intubated , OGT - Respiratory Exam Respiratory Exam: Decreased Breath Sounds (at bases), Rhonchi - Cardiovascular Exam Cardiovascular Exam: Tachycardia - GI/Abdominal Exam GI & Abdominal Exam: Soft, Normal Bowel Sounds - Exam Additional comments: Yang Cath - Back Exam Back Exam: NORMAL INSPECTION - Neurological Exam Additional comments: intubated, sedated, restless, moves all extremities - Skin Skin Exam: Warm Assessment and Plan (1) Respiratory failure Status: Acute (2) Altered mental status Status: Acute (3) HIV (human immunodeficiency virus infection) Status: Acute (4) Fever Status: Acute (5) Pneumonia Status: Acute (6) Severe sepsis Status: Acute (7) Acute renal failure Status: Acute (8) Diabetes mellitus Status: Acute - Assessment and Plan (Free Text) Plan: Patient is unstable for Bronchoscopy, procedure is cancelled, continue ventilatory support, Atb, LONG and rest of Tx Critical care time: 32 min.
--- NOTE | 2018-06-20 13:07 | CP.PCM.PN ---
Subjective - Date & Time of Evaluation Date of Evaluation: 06/20/18 Time of Evaluation: 08:00 - Subjective Subjective: \ afebrile events noted await MRI started HAART rx Objective - Vital Signs/Intake and Output Vital Signs (last 24 hours): Temp Pulse Resp BP Pulse Ox 99.5 F 99 H 32 H 159/88 H 100 06/20/18 12:00 06/20/18 12:00 06/20/18 12:00 06/20/18 12:00 06/20/18 12:00 Intake and Output: 06/20/18 06/20/18 06:59 18:59 Intake Total 1220 450 Output Total 725 Balance 495 450 - Medications Medications: Current Medications Acetaminophen (Tylenol 325mg Tab) 650 mg PO Q4 PRN PRN Reason: Fever >100.4 F Last Admin: 06/13/18 16:18 Dose: 650 mg Acetaminophen (Tylenol 650 Mg Supp) 650 mg [place] Q6 PRN PRN Reason: Fever >100.4 F Last Admin: 06/20/18 02:30 Dose: 650 mg Dextrose (Dextrose 50% Inj) 0 ml IV STAT PRN; Protocol PRN Reason: Hypoglycemia Protocol Dextrose (Glutose 15) 0 gm PO ONCE PRN; Protocol PRN Reason: Hypoglycemia Protocol Enoxaparin Sodium (Lovenox) 30 mg SC DAILY [facility]; Protocol Last Admin: 06/17/18 09:20 Dose: 30 mg Glucagon (Glucagen Diagnostic Kit) 0 mg IM STAT PRN; Protocol PRN Reason: Hypoglycemia Protocol Moxifloxacin HCl (Avelox Iv 400mg/250ml Ns) 400 mg in 250 mls @ 250 mls/hr IVPB DAILY@2100 [facility]; Protocol Last Admin: 06/19/18 21:09 Dose: 250 mls/hr Trimethoprim/Sulfamethoxazole (200 mg/ Dextrose) 250 mls @ 125 mls/hr IVPB Q12 [facility] Last Admin: 06/20/18 10:26 Dose: 125 mls/hr Ceftriaxone Sodium 2 gm/ (Sodium Chloride) 100 mls @ 100 mls/hr IVPB Q12@0900,2100 [facility] Last Admin: 06/20/18 09:33 Dose: 100 mls/hr Insulin Human Lispro (Humalog) 0 units SC Q6H [facility]; Protocol Last Admin: 06/20/18 04:22 Dose: 2 units Lamivudine (Epivir) 150 mg PO DAILY [facility]; Protocol Last Admin: 06/20/18 11:26 Dose: 150 mg Lorazepam (Ativan) 2 mg IVP Q4 PRN PRN Reason: Agitation Last Admin: 06/19/18 16:49 Dose: 2 mg Methylprednisolone (Solu-Medrol) 40 mg IVP Q12 [facility] Last Admin: 06/20/18 09:34 Dose: 40 mg Pantoprazole Sodium (Protonix Inj) 40 mg IVP DAILY [facility] Last Admin: 06/20/18 09:33 Dose: 40 mg Raltegravir (Isentress) 400 mg PO BID [facility]; Protocol Last Admin: 06/20/18 09:33 Dose: Not Given Sevelamer Carbonate (Renvela) 1,600 mg PO TID [facility] Last Admin: 06/20/18 09:33 Dose: Not Given Sodium Bicarbonate (Sodium Bicarbonate Tab) 650 mg PO Q8 [facility] Last Admin: 06/20/18 09:34 Dose: Not Given Tenofovir Disoproxil Fumarate (Viread) 300 mg PO Q48H [facility]; Protocol Last Admin: 06/19/18 01:25 Dose: Not Given - Labs Labs: 06/20/18 04:30 06/20/18 04:30 PT 13.1 Seconds (9.8-13.1) 06/18/18 05:47 INR 1.2 06/18/18 05:47 APTT 28.9 Seconds (25.6-37.1) 06/18/18 05:47 - Constitutional Appears: Confused, Cachectic, Chronically Ill - Head Exam Head Exam: NORMOCEPHALIC Additional comments: intubated - Eye Exam Eye Exam: absent: Scleral icterus - ENT Exam ENT Exam: Mucous Membranes Dry - Neck Exam Neck Exam: absent: Lymphadenopathy - Respiratory Exam Respiratory Exam: Decreased Breath Sounds - Cardiovascular Exam Cardiovascular Exam: REGULAR RHYTHM - GI/Abdominal Exam GI & Abdominal Exam: Distended, Soft Assessment and Plan (1) Acute renal failure Status: Acute (2) Altered mental status Status: Acute (3) Diabetes mellitus Status: Acute (4) HIV (human immunodeficiency virus infection) Status: Acute (5) Pneumonia Status: Acute (6) Encephalopathy Status: Acute - Assessment and Plan (Free Text) Assessment: iv rx in progress
--- NOTE | 2018-06-20 13:17 | CP.PCM.PN ---
Subjective - Date & Time of Evaluation Date of Evaluation: 06/20/18 Time of Evaluation: 13:16 - Subjective Subjective: Patient remain intubated Patient is not communicated he was sedated as well Vital sign noted Objective - Vital Signs/Intake and Output Vital Signs (last 24 hours): Temp Pulse Resp BP Pulse Ox 99.5 F 99 H 32 H 159/88 H 100 06/20/18 12:00 06/20/18 12:00 06/20/18 12:00 06/20/18 12:00 06/20/18 12:00 Intake and Output: 06/20/18 06/20/18 06:59 18:59 Intake Total 1220 450 Output Total 725 Balance 495 450 - Medications Medications: Current Medications Acetaminophen (Tylenol 325mg Tab) 650 mg PO Q4 PRN PRN Reason: Fever >100.4 F Last Admin: 06/13/18 16:18 Dose: 650 mg Acetaminophen (Tylenol 650 Mg Supp) 650 mg [place] Q6 PRN PRN Reason: Fever >100.4 F Last Admin: 06/20/18 02:30 Dose: 650 mg Dextrose (Dextrose 50% Inj) 0 ml IV STAT PRN; Protocol PRN Reason: Hypoglycemia Protocol Dextrose (Glutose 15) 0 gm PO ONCE PRN; Protocol PRN Reason: Hypoglycemia Protocol Enoxaparin Sodium (Lovenox) 30 mg SC DAILY [facility]; Protocol Last Admin: 06/17/18 09:20 Dose: 30 mg Glucagon (Glucagen Diagnostic Kit) 0 mg IM STAT PRN; Protocol PRN Reason: Hypoglycemia Protocol Moxifloxacin HCl (Avelox Iv 400mg/250ml Ns) 400 mg in 250 mls @ 250 mls/hr IVPB DAILY@2100 [facility]; Protocol Last Admin: 06/19/18 21:09 Dose: 250 mls/hr Trimethoprim/Sulfamethoxazole (200 mg/ Dextrose) 250 mls @ 125 mls/hr IVPB Q12 [facility] Last Admin: 06/20/18 10:26 Dose: 125 mls/hr Ceftriaxone Sodium 2 gm/ (Sodium Chloride) 100 mls @ 100 mls/hr IVPB Q12@0900,2100 [facility] Last Admin: 06/20/18 09:33 Dose: 100 mls/hr Insulin Human Lispro (Humalog) 0 units SC Q6H [facility]; Protocol Last Admin: 06/20/18 04:22 Dose: 2 units Lamivudine (Epivir) 150 mg PO DAILY [facility]; Protocol Last Admin: 06/20/18 11:26 Dose: 150 mg Lorazepam (Ativan) 2 mg IVP Q4 PRN PRN Reason: Agitation Last Admin: 06/19/18 16:49 Dose: 2 mg Methylprednisolone (Solu-Medrol) 40 mg IVP Q12 [facility] Last Admin: 06/20/18 09:34 Dose: 40 mg Pantoprazole Sodium (Protonix Inj) 40 mg IVP DAILY [facility] Last Admin: 06/20/18 09:33 Dose: 40 mg Raltegravir (Isentress) 400 mg PO BID [facility]; Protocol Last Admin: 06/20/18 09:33 Dose: Not Given Sevelamer Carbonate (Renvela) 1,600 mg PO TID [facility] Last Admin: 06/20/18 09:33 Dose: Not Given Sodium Bicarbonate (Sodium Bicarbonate Tab) 650 mg PO Q8 [facility] Last Admin: 06/20/18 09:34 Dose: Not Given Tenofovir Disoproxil Fumarate (Viread) 300 mg PO Q48H [facility]; Protocol Last Admin: 06/19/18 01:25 Dose: Not Given - Labs Labs: 06/20/18 04:30 06/20/18 04:30 PT 13.1 Seconds (9.8-13.1) 06/18/18 05:47 INR 1.2 06/18/18 05:47 APTT 28.9 Seconds (25.6-37.1) 06/18/18 05:47 - Constitutional Appears: No Acute Distress, Confused, Chronically Ill - Eye Exam Eye Exam: Conjunctival injection - ENT Exam ENT Exam: Mucous Membranes Moist - Respiratory Exam Respiratory Exam: NORMAL BREATHING PATTERN. absent: Chest Wall Tenderness - Cardiovascular Exam Cardiovascular Exam: absent: Gallop, Rubs - GI/Abdominal Exam GI & Abdominal Exam: Soft, Normal Bowel Sounds - Extremities Exam Extremities Exam: absent: Calf Tenderness - Back Exam Back Exam: absent: CVA tenderness (L), CVA tenderness (R) - Neurological Exam Neurological Exam: Altered - Psychiatric Exam Psychiatric exam: Flat Affect - Skin Skin Exam: absent: Cyanosis Assessment and Plan (1) Acute renal failure Assessment & Plan: acute renal failure related to HIV or sepsis or combination Sepsis Hyperphosphatemia Hypercalcemia corrected Encephalopathy Metabolic acidosis Respiratory failure Plan Status post spinal tap 0n 06/18 Continue sodium bicarbonate Continue gentle hydration Kidney function stable for now Patient on multiple antibiotics to keep watching kidney function and the dose of the antibiotics as per GFR As per primary team and intensive care unit Status: Acute (2) HIV (human immunodeficiency virus infection) Status: Acute
[2018-06-20 15:16] LABS: SPECIMEN SOURCE CSF
[2018-06-20] MEDS ORDERED: Metoprolol 1 mg/ml Inj IVP ONE (15:42)
--- NOTE | 2018-06-20 17:35 | CP.CCUPN ---
CCU Subjective - Physician Review Subjective (Free Text): Opens eyes to pain and tactile stimuli, but does not follow commands, breathing 24 on AC 22, TV 400, 50% oxygen and PEEP 5. Febrile overnight to 101.7F, SBPs 150-170s, HR 105, 22, 100% SPO2 No other distress noted. ROS: Other 12 system ROS unobtainable due to obtundation / lethargy Other PMSFH: All other Nursing and physician documentation reviewed to date; no new pertinent info noted relevant to current medical problems. EXAM- HEENT: no icterus, pupils equal, 3 mm and reactive, no gaze preference NECK: no visible JVD, supple, carotids equal upstroke bilat/no bruits CHEST: decreased BS bases, no wheezes audible HEART: regular, distant, tachy S1S2, no murmur audible, no rubs. ABD: soft, no increased distention, no focal tenderness, BS hypoactive, EXT: ++edema, no peripheral/ digital cyanosis, no calf tenderness or palpable cords, distal pulses intact and symmetrical. RUE PICC. NEURO: withdraws all extremities to pain SKIN: no rashes LABS: WBC= 10.6 HGB= 10.1 PLTs = 186K 7.31/37/132 Na= 147 K= 5.4 Cl= 114 HCO3= 19 BUN/Cr= 48/2.1 BS= 186 CXR: (my interp)- ETT position OK above cassie, no new gross consolidation, previous congestive/ pneumonic changes appear improved. IMPRESSION / MAJOR PROBLEMS NOW: Major multi-system organ insufficiency / Failure- 1. Acute Hypoxemic Resp Failure 2 Pneumonia ( etiology undetermined: possible PCP, atypical, other opportunistic pneumonitis, Pulm TB) 2. 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 New HIV+ 4. Azotemia / Dehydration with Hyperkalemia 5. Chronic Disease Anemia PLAN: 1. MV support ongoing, could lower FiO2 to 45%. Await Sputum Cxs. FOB by Pulm anticipated today, but cancelled due to instability. No new organisms isolated from cultures. 2. Empiric abx coverage noted: Ceftriaxone, Avelox, Bactrim. HAART meds also started today. Intermittently febrile, could re-culture sputum again, now thick and yellow in consistency. 3. Lopressor IV / NGT for BP control if MAP above 110. 4. Kayexalate already ordered, on NaHCO3 tabs, may need more IVFs; or increase enteral water hydration to avoid hypernatremia. 5. Consider ECHO for LV fx. 6. Avoid any excessive sedation. Time spent with this patient did not overlap with any other provider's medical or critical care time. Additionally the code selected for the services rendered in this note includes the time spent: talking to the patients family, associated physicians and reviewing hospital data/results not listed here which extended to a total of 35 minutes.
[2018-06-20] MEDS: Moxifloxacin IV 400mg/250ml NS 400 MG/250 ML BAG IVPB SCH (20:04)
[2018-06-21] MEDS: Insulin Lispro (humaLOG) 100 Units/ml Inj SC SCH ×4 (04:10→21:51)
[2018-06-21 05:31] LABS: HEMOGLOBIN 9.3 g/dL (12.0-18.0); MEAN CELL VOLUME 83.6 fl (80.0-94.0); MEAN CORPUSCULAR HEMOGLOBIN 27.1 pg (27.0-31.0); MEAN CORPUSCULAR HGB CONC 32.5 g/dL (33.0-37.0); RBC 3.42 Mil/uL (4.40-5.90); RED CELL DISTRIBUTION WIDTH 17.3 % (11.5-14.5); WHITE BLOOD COUNT 10.6 K/uL (4.8-10.8)
[2018-06-21 05:53] LABS: CALCIUM 8.7 mg/dL (8.4-10.2)
[2018-06-21 05:56] LABS: ABG ALLEN TEST YES; ARTERIAL BLOOD GAS HCO3 22.6 mmol/L (21-28); ARTERIAL BLOOD GAS PCO2 38 mm/Hg (35-45); ARTERIAL BLOOD GAS PH 7.37 (7.35-7.45); ARTERIAL BLOOD GAS PO2 77 mm/Hg (80-100); ARTERIAL BLOOD GAS TCO2 23.2 mmol/L (22-28)
[2018-06-21] MEDS: MethylPREDNISolone 40 mg Vial IVP SCH ×2 (08:06→21:49)
[2018-06-21] MEDS: Sulfamethoxazole/Trimethoprim 200 MG in Dextrose 5% In Water 250 ML IVPB SCH ×2 (08:10→21:49)
[2018-06-21] MEDS: cefTRIAXone 2 GM in Sodium Chloride 0.9% 100 ML IVPB SCH ×2 (10:36→21:49)
--- NOTE | 2018-06-21 10:38 | CP.CCUPN ---
CCU Subjective - Physician Review Subjective (Free Text): Less responsive today, minimal grimace to deep pain, breathing 26 on AC 22, TV 400, 50% oxygen and PEEP 5. Febrile again overnight to 100.9F, SBPs 110s, HR 110, 26, 100% SPO2; fluid balance last 24H= 2415/1850ml. No other distress noted. ROS: Other 12 system ROS unobtainable due to obtundation / lethargy Other PMSFH: All other Nursing and physician documentation reviewed to date; no new pertinent info noted relevant to current medical problems. EXAM- HEENT: no icterus, pupils equal, 3 mm and reactive, no gaze preference NECK: no visible JVD, supple, carotids equal upstroke bilat/no bruits CHEST: decreased BS bases, no wheezes audible HEART: regular, distant, tachy S1S2, no murmur audible, no rubs. ABD: soft, no increased distention, no focal tenderness, BS hypoactive, EXT: ++edema, no peripheral/ digital cyanosis, no calf tenderness or palpable cords, distal pulses intact and symmetrical. RUE PICC. NEURO: withdraws all extremities to pain SKIN: no rashes LABS: WBC= 10.6 HGB= 9.3 PLTs = 163K 7.37/38/77 Na= 146 K= 5.5 Cl= 112 HCO3= 24 BUN/Cr= 56/2.0 BS= 196 CXR: (my interp)- ETT position OK above cassie, no new gross consolidation, unchanged congestive/ pneumonic changes appear improved. IMPRESSION / MAJOR PROBLEMS NOW: Major multi-system organ insufficiency / Failure- 1. Acute Hypoxemic Resp Failure 2 Pneumonia (etiology undetermined: possible PCP, atypical, other opportunistic pneumonitis, r/o Pulm TB) 2. AMS, r/o LIFE SCIENCE TAXONOMIST infection, other toxic/metabolic encephalopathy 3. New HIV+ 4. Azotemia / Dehydration with Hyperkalemia 5. Chronic Disease Anemia PLAN: 1. MV support ongoing, unable to lower FiO2 to 45%. Await Sputum Cxs. FOB by Pulm cancelled due to instability. No new organisms isolated from cultures. One AFB smear negative so far (all specimens have been collected so far). 2. Empiric abx coverage noted: Ceftriaxone, Avelox, Bactrim. HAART meds also started today. Intermittently febrile, could re-culture sputum again, now thick and yellow in consistency. 3. Consider repeat CT or MRI brain imaging, if negative, consider LP. 4. More Kayexalate today, on NaHCO3 tabs. 5. Consider ECHO for LV fx. 6. Avoiding any excessive sedation. Time spent with this patient did not overlap with any other provider's medical or critical care time. Additionally the code selected for the services rendered in this note includes the time spent: talking to the patients family, associated physicians and reviewing hospital data/results not listed here which extended to a total of 30 minutes of critical care.
--- NOTE | 2018-06-21 11:00 | CP.PCM.PN ---
Subjective - Date & Time of Evaluation Date of Evaluation: 06/21/18 Time of Evaluation: 10:59 - Subjective Subjective: Nephrology Attending Covering for Dr. Stanford Higgins Patient seen and examined at bedside. Remains on airborne isolation. On ventilator. Appears stable. Objective - Vital Signs/Intake and Output Vital Signs (last 24 hours): Temp Pulse Resp BP Pulse Ox 101.0 F H 100 H 26 H 113/66 100 06/21/18 08:01 06/21/18 10:00 06/21/18 10:00 06/21/18 10:00 06/21/18 10:00 Intake and Output: 06/21/18 06/21/18 06:59 18:59 Intake Total 1685 450 Output Total 900 Balance 785 450 - Medications Medications: Current Medications Acetaminophen (Tylenol 325mg Tab) 650 mg PO Q4 PRN PRN Reason: Fever >100.4 F Last Admin: 06/21/18 08:01 Dose: 650 mg Acetaminophen (Tylenol 650 Mg Supp) 650 mg IN Q6 PRN PRN Reason: Fever >100.4 F Last Admin: 06/20/18 02:30 Dose: 650 mg Dextrose (Dextrose 50% Inj) 0 ml IV STAT PRN; Protocol PRN Reason: Hypoglycemia Protocol Dextrose (Glutose 15) 0 gm PO ONCE PRN; Protocol PRN Reason: Hypoglycemia Protocol Enoxaparin Sodium (Lovenox) 30 mg SC DAILY [facility]; Protocol Last Admin: 06/17/18 09:20 Dose: 30 mg Glucagon (Glucagen Diagnostic Kit) 0 mg IM STAT PRN; Protocol PRN Reason: Hypoglycemia Protocol Moxifloxacin HCl (Avelox Iv 400mg/250ml Ns) 400 mg in 250 mls @ 250 mls/hr IVPB DAILY@2100 [facility]; Protocol Last Admin: 06/20/18 20:04 Dose: 250 mls/hr Trimethoprim/Sulfamethoxazole (200 mg/ Dextrose) 250 mls @ 125 mls/hr IVPB Q12 [facility] Last Admin: 06/21/18 08:10 Dose: 125 mls/hr Ceftriaxone Sodium 2 gm/ (Sodium Chloride) 100 mls @ 100 mls/hr IVPB Q12@0900,2100 [facility] Last Admin: 06/21/18 10:36 Dose: 100 mls/hr Insulin Human Lispro (Humalog) 0 units SC Q6H [facility]; Protocol Last Admin: 06/21/18 04:10 Dose: 3 units Lamivudine (Epivir) 150 mg PO DAILY [facility]; Protocol Last Admin: 06/21/18 08:07 Dose: 150 mg Lorazepam (Ativan) 2 mg IVP Q4 PRN PRN Reason: Agitation Last Admin: 06/20/18 17:48 Dose: 2 mg Methylprednisolone (Solu-Medrol) 40 mg IVP Q12 [facility] Last Admin: 06/21/18 08:06 Dose: 40 mg Raltegravir (Isentress) 400 mg PO BID [facility]; Protocol Last Admin: 06/21/18 08:08 Dose: 400 mg Sevelamer Carbonate (Renvela) 1,600 mg PO TID [facility] Last Admin: 06/21/18 08:12 Dose: 1,600 mg Sodium Bicarbonate (Sodium Bicarbonate Tab) 650 mg PO Q8 [facility] Last Admin: 06/21/18 08:13 Dose: 650 mg Tenofovir Disoproxil Fumarate (Viread) 300 mg PO Q48H [facility]; Protocol Last Admin: 06/21/18 00:39 Dose: 300 mg - Labs Labs: 06/21/18 05:10 06/21/18 05:10 PT 13.1 Seconds (9.8-13.1) 06/18/18 05:47 INR 1.2 06/18/18 05:47 APTT 28.9 Seconds (25.6-37.1) 06/18/18 05:47 - Head Exam Head Exam: ATRAUMATIC, NORMOCEPHALIC - Eye Exam Eye Exam: Normal appearance Additional comments: sluggish pupils - ENT Exam ENT Exam: Mucous Membranes Moist Additional comments: intubated - Respiratory Exam Additional comments: bibasilar rales - Cardiovascular Exam Cardiovascular Exam: Tachycardia, RRR, +S1, +S2 - GI/Abdominal Exam GI & Abdominal Exam: Soft, Diminished Bowel Sounds - Extremities Exam Additional comments: 2+ LE edema - Neurological Exam Neurological Exam: Altered - Skin Skin Exam: Dry, Intact, Warm Assessment and Plan - Assessment and Plan (Free Text) Assessment: 67 yo M with h/o anemia admitted for encephalopathy, found to have azotemia and no HIV dx, SCr currently stable Plan: - Abx coverage, ART therapy as per primary team - Kayexalate prn for hyperkalemia K >5.7 - Bicarbonate for acidosis - no acute intervention from Nephrology standpoint - Dose Medications for eGFR ~30 - Avoid Nephrotoxins: NSAIDS, IV contrast, Fleet Enema, Aminoglycosides
[2018-06-21] MEDS ORDERED: Sod Polystyrene Sulf 15 gm/60 ml Susp NG ONE (11:15)
--- NOTE | 2018-06-21 11:26 | CP.PCM.PN ---
Subjective - Date & Time of Evaluation Date of Evaluation: 06/21/18 Time of Evaluation: 11:25 - Subjective Subjective: Neuro Follow-Up Note: Mr. Henry was evaluated this afternoon in the ICU. He remains intubated, no sedation. He remains on isolation. Unable to follow commands. ROS unobtainable due to pt's condition. Chart reviewed, events noted. Objective - Vital Signs/Intake and Output Vital Signs (last 24 hours): Temp Pulse Resp BP Pulse Ox 101.0 F H 100 H 26 H 113/66 100 06/21/18 08:01 06/21/18 10:00 06/21/18 10:00 06/21/18 10:00 06/21/18 10:00 Intake and Output: 06/21/18 06/21/18 06:59 18:59 Intake Total 1685 450 Output Total 900 Balance 785 450 - Medications Medications: Current Medications Acetaminophen (Tylenol 325mg Tab) 650 mg PO Q4 PRN PRN Reason: Fever >100.4 F Last Admin: 06/21/18 08:01 Dose: 650 mg Acetaminophen (Tylenol 650 Mg Supp) [address] Q6 PRN PRN Reason: Fever >100.4 F Last Admin: 06/20/18 02:30 Dose: 650 mg Dextrose (Dextrose 50% Inj) 0 ml IV STAT PRN; Protocol PRN Reason: Hypoglycemia Protocol Dextrose (Glutose 15) 0 gm PO ONCE PRN; Protocol PRN Reason: Hypoglycemia Protocol Enoxaparin Sodium (Lovenox) 30 mg SC DAILY [facility]; Protocol Last Admin: 06/17/18 09:20 Dose: 30 mg Glucagon (Glucagen Diagnostic Kit) 0 mg IM STAT PRN; Protocol PRN Reason: Hypoglycemia Protocol Moxifloxacin HCl (Avelox Iv 400mg/250ml Ns) 400 mg in 250 mls @ 250 mls/hr IVPB DAILY@2100 [facility]; Protocol Last Admin: 06/20/18 20:04 Dose: 250 mls/hr Trimethoprim/Sulfamethoxazole (200 mg/ Dextrose) 250 mls @ 125 mls/hr IVPB Q12 [facility] Last Admin: 06/21/18 08:10 Dose: 125 mls/hr Ceftriaxone Sodium 2 gm/ (Sodium Chloride) 100 mls @ 100 mls/hr IVPB Q12@0900,2100 [facility] Last Admin: 06/21/18 10:36 Dose: 100 mls/hr Insulin Human Lispro (Humalog) 0 units SC Q6H [facility]; Protocol Last Admin: 06/21/18 04:10 Dose: 3 units Lamivudine (Epivir) 150 mg PO DAILY [facility]; Protocol Last Admin: 06/21/18 08:07 Dose: 150 mg Lorazepam (Ativan) 2 mg IVP Q4 PRN PRN Reason: Agitation Last Admin: 06/20/18 17:48 Dose: 2 mg Methylprednisolone (Solu-Medrol) 40 mg IVP Q12 [facility] Last Admin: 06/21/18 08:06 Dose: 40 mg Raltegravir (Isentress) 400 mg PO BID [facility]; Protocol Last Admin: 06/21/18 08:08 Dose: 400 mg Sevelamer Carbonate (Renvela) 1,600 mg PO TID [facility] Last Admin: 06/21/18 08:12 Dose: 1,600 mg Sodium Bicarbonate (Sodium Bicarbonate Tab) 650 mg PO Q8 [facility] Last Admin: 06/21/18 08:13 Dose: 650 mg Tenofovir Disoproxil Fumarate (Viread) 300 mg PO Q48H [facility]; Protocol Last Admin: 06/21/18 00:39 Dose: 300 mg - Labs Labs: 06/21/18 05:10 06/21/18 05:10 PT 13.1 Seconds (9.8-13.1) 06/18/18 05:47 INR 1.2 06/18/18 05:47 APTT 28.9 Seconds (25.6-37.1) 06/18/18 05:47 - Constitutional Appears: Other (lethargic; intubated off sedation; does not follow commands) - Head Exam Head Exam: NORMOCEPHALIC - Eye Exam Eye Exam: PERRL. absent: EOMI, Normal appearance Additional comments: Pt has a gaze preference to left today Eyes open spontaneously but not specifically to sternal rub or stimuli Pupils are both reactive to light (approx 2 mm b/l) + corneals, + dolls eyes - ENT Exam ENT Exam: Mucous Membranes Moist (intubtaed) - Neck Exam Neck Exam: Normal Inspection - Respiratory Exam Respiratory Exam: absent: NORMAL BREATHING PATTERN (intubated off sedation) - Cardiovascular Exam Cardiovascular Exam: Tachycardia - GI/Abdominal Exam Additional comments: OGT - Extremities Exam Extremities Exam: absent: Full ROM, Normal Inspection Additional comments: Generalized edema noted to BUE and BLE No purposeful or non-purposeful movements to BUE and BLE and extremities fall immediately to bed after being raised. - Neurological Exam Neurological Exam: Altered. absent: Alert, Awake Neuro motor strength exam: Left Upper Extremity: 0, Right Upper Extremity: 0, Left Lower Extremity: 0, Right Lower Extremity: 0 Additional comments: Pt remains intubated, off sedation, lethargic. Unable to follow commands. Eyes open spontaneously but not specific eye opening to sternal rub. Has a left gaze preference today. No purposeful or non-purposeful movements to BUE and BLE, all extremities fall immediately to bed after being raised. No tremors; no clonus noted Able to elicit plantar response today: toes down going b/l. Hyporeflexia noted BLE + pupil response to light (approx 2 mm b/l) + dolls eyes; + corneal reflex, however, sluggish b/l; + gag reflex w deep suction per nursing Unable to assess strength and sensation 2/2 pt's condition. - Psychiatric Exam Additional comments: intubated off sedation - Skin Skin Exam: Diaphoretic, Normal Color Assessment and Plan (1) Altered mental status Assessment & Plan: Imaging reviewed: -CT Head (06/20/18): No acute intracranial abnormalities. No significant findings to account for the clinical presentation. No significant interval change compared to the prior examination(s). -Non-contrast CT Head (06/11/18): No acute intracranial abnormality. Moderate global parenchymal volume loss. -ECHO (06/12/18): EF 55-60% -VEEG: low amplitude, no seizures. -LP was done on 06/18/18---results reviewed; still pending results for CSF IgG; VDRL; toxo. gondii IgG. -Maintain isolation as ordered. -Continue ICU management and recommendations per ID and other consults. -Started on HAART by ID after LP was done. -Notify neuro team of any acute changes in pt's condition. Case discussed with Dr. Pandey Status: Acute
--- NOTE | 2018-06-21 13:03 | RAD ---
Date of service: 06/21/2018 HISTORY: intubated COMPARISON: 06/20/2018 FINDINGS: LUNGS: No active pulmonary disease. PLEURA: No significant pleural effusion identified, no pneumothorax apparent. CARDIOVASCULAR: No aortic atherosclerotic calcification present. Normal cardiac size. No pulmonary vascular congestion. OSSEOUS STRUCTURES: No significant abnormalities. VISUALIZED UPPER ABDOMEN: Normal. OTHER FINDINGS: None. IMPRESSION: No active disease.
--- NOTE | 2018-06-21 13:52 | CP.PCM.PN ---
<Hipolito Glover - Last Filed: 06/21/18 13:52> Objective - Vital Signs/Intake and Output Vital Signs (last 24 hours): Temp Pulse Resp BP Pulse Ox 99.0 F 81 24 103/59 L 100 06/21/18 12:00 06/21/18 12:00 06/21/18 12:00 06/21/18 12:00 06/21/18 12:00 Intake and Output: 06/21/18 06/21/18 06:59 18:59 Intake Total 1685 750 Output Total 900 750 Balance 785 0 - Medications Medications: Current Medications Acetaminophen (Tylenol 325mg Tab) 650 mg PO Q4 PRN PRN Reason: Fever >100.4 F Last Admin: 06/21/18 08:01 Dose: 650 mg Acetaminophen (Tylenol 650 Mg Supp) 650 mg NV Q6 PRN PRN Reason: Fever >100.4 F Last Admin: 06/20/18 02:30 Dose: 650 mg Dextrose (Dextrose 50% Inj) 0 ml IV STAT PRN; Protocol PRN Reason: Hypoglycemia Protocol Dextrose (Glutose 15) 0 gm PO ONCE PRN; Protocol PRN Reason: Hypoglycemia Protocol Enoxaparin Sodium (Lovenox) 30 mg SC DAILY [facility]; Protocol Last Admin: 06/17/18 09:20 Dose: 30 mg Glucagon (Glucagen Diagnostic Kit) 0 mg IM STAT PRN; Protocol PRN Reason: Hypoglycemia Protocol Moxifloxacin HCl (Avelox Iv 400mg/250ml Ns) 400 mg in 250 mls @ 250 mls/hr IVPB DAILY@2100 [facility]; Protocol Last Admin: 06/20/18 20:04 Dose: 250 mls/hr Trimethoprim/Sulfamethoxazole (200 mg/ Dextrose) 250 mls @ 125 mls/hr IVPB Q12 [facility] Last Admin: 06/21/18 08:10 Dose: 125 mls/hr Ceftriaxone Sodium 2 gm/ (Sodium Chloride) 100 mls @ 100 mls/hr IVPB Q12@0900,2100 [facility] Last Admin: 06/21/18 10:36 Dose: 100 mls/hr Insulin Human Lispro (Humalog) 0 units SC Q6H [facility]; Protocol Last Admin: 06/21/18 11:55 Dose: 1 units Lamivudine (Epivir) 150 mg PO DAILY [facility]; Protocol Last Admin: 06/21/18 08:07 Dose: 150 mg Lorazepam (Ativan) 2 mg IVP Q4 PRN PRN Reason: Agitation Last Admin: 06/20/18 17:48 Dose: 2 mg Methylprednisolone (Solu-Medrol) 40 mg IVP Q12 [facility] Last Admin: 06/21/18 08:06 Dose: 40 mg Raltegravir (Isentress) 400 mg PO BID [facility]; Protocol Last Admin: 06/21/18 08:08 Dose: 400 mg Sevelamer Carbonate (Renvela) 1,600 mg PO TID [facility] Last Admin: 06/21/18 12:07 Dose: 1,600 mg Sodium Bicarbonate (Sodium Bicarbonate Tab) 650 mg PO Q8 [facility] Last Admin: 06/21/18 08:13 Dose: 650 mg Tenofovir Disoproxil Fumarate (Viread) 300 mg PO Q48H [facility]; Protocol Last Admin: 06/21/18 00:39 Dose: 300 mg - Labs Labs: 06/21/18 05:10 06/21/18 05:10 PT 13.1 Seconds (9.8-13.1) 06/18/18 05:47 INR 1.2 06/18/18 05:47 APTT 28.9 Seconds (25.6-37.1) 06/18/18 05:47 Assessment and Plan (1) Respiratory failure Status: Acute (2) Altered mental status Status: Acute (3) HIV (human immunodeficiency virus infection) Status: Acute (4) Fever Status: Acute (5) Pneumonia Status: Acute (6) Severe sepsis Status: Acute (7) Acute renal failure Status: Acute (8) Diabetes mellitus Status: Acute <Susan Falcon - Last Filed: 06/21/18 14:01> Objective - Vital Signs/Intake and Output Vital Signs (last 24 hours): Temp Pulse Resp BP Pulse Ox 99.0 F 81 24 103/59 L 100 06/21/18 12:00 06/21/18 12:00 06/21/18 12:00 06/21/18 12:00 06/21/18 12:00 Intake and Output: 06/21/18 06/21/18 06:59 18:59 Intake Total 1685 750 Output Total 900 750 Balance 785 0 - Medications Medications: Current Medications Acetaminophen (Tylenol 325mg Tab) 650 mg PO Q4 PRN PRN Reason: Fever >100.4 F Last Admin: 06/21/18 08:01 Dose: 650 mg Acetaminophen (Tylenol 650 Mg Supp) 650 mg NV Q6 PRN PRN Reason: Fever >100.4 F Last Admin: 06/20/18 02:30 Dose: 650 mg Dextrose (Dextrose 50% Inj) 0 ml IV STAT PRN; Protocol PRN Reason: Hypoglycemia Protocol Dextrose (Glutose 15) 0 gm PO ONCE PRN; Protocol PRN Reason: Hypoglycemia Protocol Enoxaparin Sodium (Lovenox) 30 mg SC DAILY [facility]; Protocol Last Admin: 06/17/18 09:20 Dose: 30 mg Glucagon (Glucagen Diagnostic Kit) 0 mg IM STAT PRN; Protocol PRN Reason: Hypoglycemia Protocol Moxifloxacin HCl (Avelox Iv 400mg/250ml Ns) 400 mg in 250 mls @ 250 mls/hr IVPB DAILY@2100 [facility]; Protocol Last Admin: 06/20/18 20:04 Dose: 250 mls/hr Trimethoprim/Sulfamethoxazole (200 mg/ Dextrose) 250 mls @ 125 mls/hr IVPB Q12 [facility] Last Admin: 06/21/18 08:10 Dose: 125 mls/hr Ceftriaxone Sodium 2 gm/ (Sodium Chloride) 100 mls @ 100 mls/hr IVPB Q12@0900,2100 [facility] Last Admin: 06/21/18 10:36 Dose: 100 mls/hr Insulin Human Lispro (Humalog) 0 units SC Q6H [facility]; Protocol Last Admin: 06/21/18 11:55 Dose: 1 units Lamivudine (Epivir) 150 mg PO DAILY [facility]; Protocol Last Admin: 06/21/18 08:07 Dose: 150 mg Lorazepam (Ativan) 2 mg IVP Q4 PRN PRN Reason: Agitation Last Admin: 06/20/18 17:48 Dose: 2 mg Methylprednisolone (Solu-Medrol) 40 mg IVP Q12 [facility] Last Admin: 06/21/18 08:06 Dose: 40 mg Raltegravir (Isentress) 400 mg PO BID [facility]; Protocol Last Admin: 06/21/18 08:08 Dose: 400 mg Sevelamer Carbonate (Renvela) 1,600 mg PO TID [facility] Last Admin: 06/21/18 12:07 Dose: 1,600 mg Sodium Bicarbonate (Sodium Bicarbonate Tab) 650 mg PO Q8 [facility] Last Admin: 06/21/18 08:13 Dose: 650 mg Tenofovir Disoproxil Fumarate (Viread) 300 mg PO Q48H [facility]; Protocol Last Admin: 06/21/18 00:39 Dose: 300 mg - Labs Labs: 06/21/18 05:10 06/21/18 05:10 PT 13.1 Seconds (9.8-13.1) 06/18/18 05:47 INR 1.2 06/18/18 05:47 APTT 28.9 Seconds (25.6-37.1) 06/18/18 05:47 Assessment and Plan (1) Altered mental status Assessment & Plan: Imaging reviewed: -CT Head (06/20/18): No acute intracranial abnormalities. No significant findings to account for the clinical presentation. No significant interval change compared to the prior examination(s). -Non-contrast CT Head (06/11/18): No acute intracranial abnormality. Moderate global parenchymal volume loss. -ECHO (06/12/18): EF 55-60% -VEEG: low amplitude, no seizures. -LP was done on 06/18/18; results reviewed; still pending results for CSF IgG; VDRL; toxo. gondii IgG. -Pt's mental status is likely due to infectious process as neuro w/u is negative so far. -Maintain isolation as ordered. -Continue ICU management and recommendations per ID and other consults. Was started on HAART by Dr. Ellison. -Notify neuro team of any acute changes in pt's condition. Case discussed with Dr. Pandey Status: Acute
--- NOTE | 2018-06-21 15:48 | CP.PCM.PN ---
Subjective - Date & Time of Evaluation Date of Evaluation: 06/21/18 Time of Evaluation: 08:30 - Subjective Subjective: F/U respiratory failure. intubated, sedated, restless Objective - Vital Signs/Intake and Output Vital Signs (last 24 hours): Temp Pulse Resp BP Pulse Ox 99.0 F 94 H 27 H 114/70 100 06/21/18 12:00 06/21/18 14:00 06/21/18 14:00 06/21/18 14:00 06/21/18 12:00 Intake and Output: 06/21/18 06/21/18 06:59 18:59 Intake Total 1685 950 Output Total 900 750 Balance 785 200 - Medications Medications: Current Medications Acetaminophen (Tylenol 325mg Tab) 650 mg PO Q4 PRN PRN Reason: Fever >100.4 F Last Admin: 06/21/18 08:01 Dose: 650 mg Acetaminophen (Tylenol 650 Mg Supp) 650 mg MO Q6 PRN PRN Reason: Fever >100.4 F Last Admin: 06/20/18 02:30 Dose: 650 mg Dextrose (Dextrose 50% Inj) 0 ml IV STAT PRN; Protocol PRN Reason: Hypoglycemia Protocol Dextrose (Glutose 15) 0 gm PO ONCE PRN; Protocol PRN Reason: Hypoglycemia Protocol Enoxaparin Sodium (Lovenox) 30 mg SC DAILY [facility]; Protocol Last Admin: 06/17/18 09:20 Dose: 30 mg Glucagon (Glucagen Diagnostic Kit) 0 mg IM STAT PRN; Protocol PRN Reason: Hypoglycemia Protocol Moxifloxacin HCl (Avelox Iv 400mg/250ml Ns) 400 mg in 250 mls @ 250 mls/hr IVPB DAILY@2100 [facility]; Protocol Last Admin: 06/20/18 20:04 Dose: 250 mls/hr Trimethoprim/Sulfamethoxazole (200 mg/ Dextrose) 250 mls @ 125 mls/hr IVPB Q12 [facility] Last Admin: 06/21/18 08:10 Dose: 125 mls/hr Ceftriaxone Sodium 2 gm/ (Sodium Chloride) 100 mls @ 100 mls/hr IVPB Q12@0900,2100 [facility] Last Admin: 06/21/18 10:36 Dose: 100 mls/hr Insulin Human Lispro (Humalog) 0 units SC Q6H [facility]; Protocol Last Admin: 06/21/18 11:55 Dose: 1 units Lamivudine (Epivir) 150 mg PO DAILY [facility]; Protocol Last Admin: 06/21/18 08:07 Dose: 150 mg Lorazepam (Ativan) 2 mg IVP Q4 PRN PRN Reason: Agitation Last Admin: 06/20/18 17:48 Dose: 2 mg Methylprednisolone (Solu-Medrol) 40 mg IVP Q12 [facility] Last Admin: 06/21/18 08:06 Dose: 40 mg Raltegravir (Isentress) 400 mg PO BID [facility]; Protocol Last Admin: 06/21/18 08:08 Dose: 400 mg Sevelamer Carbonate (Renvela) 1,600 mg PO TID [facility] Last Admin: 06/21/18 12:07 Dose: 1,600 mg Sodium Bicarbonate (Sodium Bicarbonate Tab) 650 mg PO Q8 [facility] Last Admin: 06/21/18 08:13 Dose: 650 mg Tenofovir Disoproxil Fumarate (Viread) 300 mg PO Q48H [facility]; Protocol Last Admin: 06/21/18 00:39 Dose: 300 mg - Labs Labs: 06/21/18 05:10 06/21/18 05:10 PT 13.1 Seconds (9.8-13.1) 06/18/18 05:47 INR 1.2 06/18/18 05:47 APTT 28.9 Seconds (25.6-37.1) 06/18/18 05:47 - Constitutional Appears: Chronically Ill - Head Exam Head Exam: NORMAL INSPECTION - Eye Exam Additional comments: Pupils sluggish - ENT Exam Additional comments: Intubated. OGT - Neck Exam Neck Exam: Normal Inspection - Respiratory Exam Respiratory Exam: Decreased Breath Sounds (at bases), Rhonchi - Cardiovascular Exam Cardiovascular Exam: Tachycardia - GI/Abdominal Exam GI & Abdominal Exam: Soft, Normal Bowel Sounds - Exam Additional comments: Yang Cath - Extremities Exam Additional comments: Edema BLE/BUE. - Neurological Exam Additional comments: Intubated, lethargic, does not follows commands. - Skin Skin Exam: Warm Assessment and Plan (1) Respiratory failure Status: Acute (2) Altered mental status Status: Acute (3) HIV (human immunodeficiency virus infection) Status: Acute (4) Fever Status: Acute (5) Pneumonia Status: Acute (6) Severe sepsis Status: Acute (7) Acute renal failure Status: Acute (8) Diabetes mellitus Status: Acute - Assessment and Plan (Free Text) Plan: Hyperkalemia , to have Kayexalate, continue Avelox, Ceftriazone , Bactrim, LONG,ventilatory support, f/u CT Head Critical care time: 34 min.
[2018-06-21] MEDS: Moxifloxacin IV 400mg/250ml NS 400 MG/250 ML BAG IVPB SCH (21:50)
[2018-06-22] MEDS: Insulin Lispro (humaLOG) 100 Units/ml Inj SC SCH ×4 (04:30→20:09)
[2018-06-22 05:17] LABS: ABG ALLEN TEST YES; ARTERIAL BLOOD GAS HCO3 26.9 mmol/L (21-28); ARTERIAL BLOOD GAS HEMOGLOBIN 7.3 g/dL (11.7-17.4); ARTERIAL BLOOD GAS O2 CAPACITY 10.4 mL/dL (16-24); ARTERIAL BLOOD GAS O2 CONTENT 10.3 ML/dL (15-23); ARTERIAL BLOOD GAS O2 SAT 99.3 % (95-98); ARTERIAL BLOOD GAS PCO2 35 mm/Hg (35-45); ARTERIAL BLOOD GAS PH 7.48 (7.35-7.45); ARTERIAL BLOOD GAS PO2 149 mm/Hg (80-100); ARTERIAL BLOOD GAS TCO2 27.2 mmol/L (22-28)
[2018-06-22 06:37] LABS: MEAN CELL VOLUME 83.5 fl (80.0-94.0); MEAN CORPUSCULAR HEMOGLOBIN 26.9 pg (27.0-31.0); MEAN CORPUSCULAR HGB CONC 32.2 g/dL (33.0-37.0); RBC 2.6 Mil/uL (4.40-5.90); RED CELL DISTRIBUTION WIDTH 17.6 % (11.5-14.5); WHITE BLOOD COUNT 7.1 K/uL (4.8-10.8)
[2018-06-22 07:00] LABS: ALB/GLOB RATIO 0.8 (1.0-2.1); CALCIUM 8.2 mg/dL (8.4-10.2)
[2018-06-22] MEDS: Sulfamethoxazole/Trimethoprim 200 MG in Dextrose 5% In Water 250 ML IVPB SCH ×2 (08:38→22:10)
[2018-06-22] MEDS: cefTRIAXone 2 GM in Sodium Chloride 0.9% 100 ML IVPB SCH ×2 (08:40→20:01)
[2018-06-22] MEDS: MethylPREDNISolone 40 mg Vial IVP SCH ×2 (08:41→20:09)
--- NOTE | 2018-06-22 08:42 | CT ---
Date of service: 06/21/2018 PROCEDURE: CT HEAD WITHOUT CONTRAST. HISTORY: left gaze preferences; r/o acute changes COMPARISON: 06/19/2018 TECHNIQUE: Axial computed tomography images were obtained through the head/brain without intravenous contrast. Radiation dose: Total exam DLP = 900.1 mGy-cm. This CT exam was performed using one or more of the following dose reduction techniques: Automated exposure control, adjustment of the mA and/or kV according to patient size, and/or use of iterative reconstruction technique. FINDINGS: HEMORRHAGE: No intracranial hemorrhage. BRAIN: No mass effect or edema. Mild atrophy consistent with patient age. No white matter ischemic change. No evidence of acute infarct. VENTRICLES: Unremarkable. No hydrocephalus. CALVARIUM: Unremarkable. PARANASAL SINUSES: Unremarkable as visualized. No significant inflammatory changes. MASTOID AIR CELLS: Unremarkable as visualized. No inflammatory changes. OTHER FINDINGS: None. IMPRESSION: No intracranial mass, hemorrhage or evidence of acute infarct. Mild age-appropriate diffuse atrophy. The preliminary findings for this examination were reported by [facility] at 7:07 p.m. on 06/21/2018. There is concurrence of this report with the preliminary findings.
--- NOTE | 2018-06-22 10:49 | CP.CCUPN ---
CCU Subjective - Physician Review Subjective (Free Text): Agitated now, breathing 27 on AC 22, 400ml, 50% PEEP 5, SPO2 100% PPP= 28, Ve= 12.2. He did receive Ativan overnight. Does not follow my commands. Afebrile, but T max last 24H = 101.0F, SBPs 140s, HR 100, 27, 100% SPO2; fluid balance last 24H= 2305/2150ml. No other distress noted. ROS: Other 12 system ROS unobtainable due agitation. Other PMSFH: All other Nursing and physician documentation reviewed to date; no new pertinent info noted relevant to current medical problems. EXAM- HEENT: no icterus, pupils equal, 3 mm and reactive, no nystagmus NECK: no visible JVD, supple, carotids equal upstroke bilat/no bruits CHEST: decreased BS bases, no wheezes audible HEART: regular, distant, tachy S1S2, no murmur audible, no rubs. ABD: soft, no increased distention, no focal tenderness, BS hypoactive, EXT: +edema, no peripheral/ digital cyanosis, no calf tenderness or palpable cords, distal pulses intact and symmetrical. RUE PICC. NEURO: withdraws all extremities to pain, tone decreased. SKIN: no rashes LABS: WBC= 7.1 HGB= 7.0 PLTs = 140K 7.48/35/149 Na= 143 K= 4.7 Cl= 109 HCO3= 26 BUN/Cr= 60/1.8 BS= 275 CXR: (my interp)- ETT position OK above cassie, no new gross consolidation, pneumonic changes appear slightly improved vs technique. IMPRESSION / MAJOR PROBLEMS NOW: Major multi-system organ insufficiency / Failure- 1. Acute Hypoxemic Resp Failure 2 Pneumonia (etiology undetermined: possible PCP, atypical, other opportunistic pneumonitis, r/o Pulm TB) 2. AMS, r/o [employer] infection, other toxic/metabolic encephalopathy 3. New HIV+ 4. Azotemia / Dehydration with Hyperkalemia 5. Chronic Disease Anemia PLAN: 1. MV support ongoing, try to lower FiO2 to 45%. FOB by Pulm cancelled due to instability. Two AFB smears negative so far (all specimens have been collected so far). 2. Empiric abx coverage noted: Ceftriaxone, Avelox, Bactrim. HAART meds also started. Intermittently febrile, re-cultured sputum again yesterday: pending. Consider antifungal therapy. Yeast in sputum cx on Jun 18: ?? 2 oral contamination from previous oral thrush?? 3. Repeat CT brain imaging done yesterday negative for any new chnages. LP done Jun 18, no clear etiological results. EEG negative for seizures. 4. More volume expansion. PRBCS ordered for today. No active bleeding evident, needs stress ulcer prx. 5. Consider ECHO for LV fx. Time spent with this patient did not overlap with any other provider's medical or critical care time. Additionally the code selected for the services rendered in this note includes the time spent: talking to the patients family, associated physicians and reviewing hospital data/results not listed here which extended to a total of 30 minutes of critical care.
--- NOTE | 2018-06-22 11:03 | CP.PCM.PN ---
Subjective - Date & Time of Evaluation Date of Evaluation: 06/22/18 Time of Evaluation: 10:58 - Subjective Subjective: Patient remain on respirator and sedated Vital signs noted Objective - Vital Signs/Intake and Output Vital Signs (last 24 hours): Temp Pulse Resp BP Pulse Ox 97.9 F 99 H 29 H 140/83 98 06/22/18 09:58 06/22/18 09:58 06/22/18 09:58 06/22/18 09:58 06/22/18 09:58 Intake and Output: 06/22/18 06/22/18 06:59 18:59 Intake Total 610 764 Output Total 1000 Balance -390 764 - Medications Medications: Current Medications Acetaminophen (Tylenol 325mg Tab) 650 mg PO Q4 PRN PRN Reason: Fever >100.4 F Last Admin: 06/21/18 08:01 Dose: 650 mg Acetaminophen (Tylenol 650 Mg Supp) 650 mg MD Q6 PRN PRN Reason: Fever >100.4 F Last Admin: 06/20/18 02:30 Dose: 650 mg Dextrose (Dextrose 50% Inj) 0 ml IV STAT PRN; Protocol PRN Reason: Hypoglycemia Protocol Dextrose (Glutose 15) 0 gm PO ONCE PRN; Protocol PRN Reason: Hypoglycemia Protocol Enoxaparin Sodium (Lovenox) 30 mg SC DAILY [facility]; Protocol Last Admin: 06/17/18 09:20 Dose: 30 mg Famotidine (Pepcid) 20 mg IVP Q12 [facility] Glucagon (Glucagen Diagnostic Kit) 0 mg IM STAT PRN; Protocol PRN Reason: Hypoglycemia Protocol Moxifloxacin HCl (Avelox Iv 400mg/250ml Ns) 400 mg in 250 mls @ 250 mls/hr IVPB DAILY@2100 [facility]; Protocol Last Admin: 06/21/18 21:50 Dose: 250 mls/hr Trimethoprim/Sulfamethoxazole (200 mg/ Dextrose) 250 mls @ 125 mls/hr IVPB Q12 [facility] Last Admin: 06/22/18 08:38 Dose: 125 mls/hr Ceftriaxone Sodium 2 gm/ (Sodium Chloride) 100 mls @ 100 mls/hr IVPB Q12@0900,2100 [facility] Last Admin: 06/22/18 08:40 Dose: 100 mls/hr Insulin Human Lispro (Humalog) 0 units SC Q6H [facility]; Protocol Last Admin: 06/22/18 04:30 Dose: 3 units Lamivudine (Epivir) 150 mg PO DAILY [facility]; Protocol Last Admin: 06/22/18 08:39 Dose: 150 mg Lorazepam (Ativan) 2 mg IVP Q4 PRN PRN Reason: Agitation Last Admin: 06/22/18 03:40 Dose: 2 mg Methylprednisolone (Solu-Medrol) 40 mg IVP Q12 [facility] Last Admin: 06/22/18 08:41 Dose: 40 mg Raltegravir (Isentress) 400 mg PO BID [facility]; Protocol Last Admin: 06/22/18 08:40 Dose: 400 mg Sevelamer Carbonate (Renvela) 1,600 mg PO TID [facility] Last Admin: 06/22/18 08:40 Dose: 1,600 mg Sodium Bicarbonate (Sodium Bicarbonate Tab) 650 mg PO Q8 [facility] Last Admin: 06/22/18 08:40 Dose: 650 mg Tenofovir Disoproxil Fumarate (Viread) 300 mg PO Q48H [facility]; Protocol Last Admin: 06/21/18 00:39 Dose: 300 mg - Labs Labs: 06/22/18 05:30 06/22/18 05:30 PT 13.1 Seconds (9.8-13.1) 06/18/18 05:47 INR 1.2 06/18/18 05:47 APTT 28.9 Seconds (25.6-37.1) 06/18/18 05:47 - Eye Exam Eye Exam: Conjunctival injection - ENT Exam ENT Exam: Mucous Membranes Moist - Neck Exam Neck Exam: absent: Lymphadenopathy - Respiratory Exam Respiratory Exam: Rales. absent: Chest Wall Tenderness - Cardiovascular Exam Cardiovascular Exam: absent: JVD, Rubs - GI/Abdominal Exam GI & Abdominal Exam: Soft, Normal Bowel Sounds - Extremities Exam Extremities Exam: absent: Calf Tenderness - Back Exam Back Exam: absent: CVA tenderness (L), CVA tenderness (R) - Neurological Exam Neurological Exam: Alert - Psychiatric Exam Psychiatric exam: Normal Affect - Skin Skin Exam: absent: Cyanosis Assessment and Plan (1) Acute renal failure Assessment & Plan: cute renal failure related to HIV or sepsis or combination Sepsis Hyperphosphatemia Hypercalcemia corrected Encephalopathy Metabolic acidosis Respiratory failure Plan Kidney function continued to improve with serum creatinine 1.8 Status post spinal tap 0n 06/18 Continue sodium bicarbonate as needed for the acidosis Continue gentle hydration Kidney function stable for now Patient on multiple antibiotics to keep watching kidney function and the dose of the antibiotics as per GFR As per primary team and intensive care unit Status: Acute (2) HIV (human immunodeficiency virus infection) Status: Acute
--- NOTE | 2018-06-22 11:07 | CP.PCM.PN ---
Subjective - Date & Time of Evaluation Date of Evaluation: 06/22/18 Time of Evaluation: 11:07 - Subjective Subjective: Neuro Follow-Up Note: Mr. Henry was evaluated this afternoon in the ICU. He remains intubated, off sedation. He remains on isolation. Is lethargic and still unable to follow commands. EEG and CT Head done stat yesterday were reviewed with Dr. Pandey. ROS unobtainable due to pt's condition. Objective - Vital Signs/Intake and Output Vital Signs (last 24 hours): Temp Pulse Resp BP Pulse Ox 97.9 F 99 H 29 H 140/83 98 06/22/18 09:58 06/22/18 09:58 06/22/18 09:58 06/22/18 09:58 06/22/18 09:58 Intake and Output: 06/22/18 06/22/18 06:59 18:59 Intake Total 610 764 Output Total 1000 Balance -390 764 - Medications Medications: Current Medications Acetaminophen (Tylenol 325mg Tab) 650 mg PO Q4 PRN PRN Reason: Fever >100.4 F Last Admin: 06/21/18 08:01 Dose: 650 mg Acetaminophen (Tylenol 650 Mg Supp) 650 mg DC Q6 PRN PRN Reason: Fever >100.4 F Last Admin: 06/20/18 02:30 Dose: 650 mg Dextrose (Dextrose 50% Inj) 0 ml IV STAT PRN; Protocol PRN Reason: Hypoglycemia Protocol Dextrose (Glutose 15) 0 gm PO ONCE PRN; Protocol PRN Reason: Hypoglycemia Protocol Enoxaparin Sodium (Lovenox) 30 mg SC DAILY [facility]; Protocol Last Admin: 06/17/18 09:20 Dose: 30 mg Famotidine (Pepcid) 20 mg IVP Q12 [facility] Glucagon (Glucagen Diagnostic Kit) 0 mg IM STAT PRN; Protocol PRN Reason: Hypoglycemia Protocol Moxifloxacin HCl (Avelox Iv 400mg/250ml Ns) 400 mg in 250 mls @ 250 mls/hr IVPB DAILY@2100 [facility]; Protocol Last Admin: 06/21/18 21:50 Dose: 250 mls/hr Trimethoprim/Sulfamethoxazole (200 mg/ Dextrose) 250 mls @ 125 mls/hr IVPB Q12 [facility] Last Admin: 06/22/18 08:38 Dose: 125 mls/hr Ceftriaxone Sodium 2 gm/ (Sodium Chloride) 100 mls @ 100 mls/hr IVPB Q12@0900,2100 [facility] Last Admin: 06/22/18 08:40 Dose: 100 mls/hr Insulin Human Lispro (Humalog) 0 units SC Q6H [facility]; Protocol Last Admin: 06/22/18 04:30 Dose: 3 units Lamivudine (Epivir) 150 mg PO DAILY [facility]; Protocol Last Admin: 06/22/18 08:39 Dose: 150 mg Lorazepam (Ativan) 2 mg IVP Q4 PRN PRN Reason: Agitation Last Admin: 06/22/18 03:40 Dose: 2 mg Methylprednisolone (Solu-Medrol) 40 mg IVP Q12 [facility] Last Admin: 06/22/18 08:41 Dose: 40 mg Raltegravir (Isentress) 400 mg PO BID [facility]; Protocol Last Admin: 06/22/18 08:40 Dose: 400 mg Sevelamer Carbonate (Renvela) 1,600 mg PO TID [facility] Last Admin: 06/22/18 08:40 Dose: 1,600 mg Sodium Bicarbonate (Sodium Bicarbonate Tab) 650 mg PO Q8 [facility] Last Admin: 06/22/18 08:40 Dose: 650 mg Tenofovir Disoproxil Fumarate (Viread) 300 mg PO Q48H [facility]; Protocol Last Admin: 06/21/18 00:39 Dose: 300 mg - Labs Labs: 06/22/18 05:30 06/22/18 05:30 PT 13.1 Seconds (9.8-13.1) 06/18/18 05:47 INR 1.2 06/18/18 05:47 APTT 28.9 Seconds (25.6-37.1) 06/18/18 05:47 - Constitutional Appears: Other (lethargic, intubated, off sedation, does not follow commands) - Head Exam Head Exam: NORMAL INSPECTION, NORMOCEPHALIC - Eye Exam Eye Exam: PERRL Pupil Exam: NORMAL ACCOMODATION, PERRL Additional comments: Pt has no gaze preference today compared to yesterday. Eyes open spontaneously but not specifically to sternal rub or stimuli Pupils are both reactive to light (approx 3 mm b/l) + corneals, + dolls eyes - ENT Exam ENT Exam: Mucous Membranes Moist Additional comments: intubated - Neck Exam Neck Exam: Normal Inspection - Respiratory Exam Respiratory Exam: absent: NORMAL BREATHING PATTERN Additional comments: intubated - Cardiovascular Exam Cardiovascular Exam: Tachycardia - GI/Abdominal Exam Additional comments: ogt in place - Extremities Exam Extremities Exam: absent: Full ROM, Normal Inspection Additional comments: Still has generalized edema noted to BUE and BLE No purposeful or non-purposeful movements to BUE and BLE and extremities fall immediately to bed after being raised. - Neurological Exam Neurological Exam: Altered. absent: Alert, Awake Additional comments: Pt remains intubated, off sedation, lethargic. Unable to follow commands. Eyes open spontaneously but not specific eye opening to sternal rub. No gaze preference noted. No purposeful or non-purposeful movements to BUE and BLE, all extremities fall immediately to bed after being raised. No tremors; no clonus noted Toes down going b/l. Hyporeflexia noted BLE + pupil response to light (approx 3 mm b/l) + dolls eyes; + corneal reflex, however, sluggish b/l; + gag reflex w deep suction per nursing Unable to assess strength and sensation 2/2 pt's condition. - Psychiatric Exam Psychiatric exam: absent: Normal Affect, Normal Mood Additional comments: intubated, off sedation lethargic, does not follow commands - Skin Skin Exam: Diaphoretic, Normal Color Assessment and Plan (1) Altered mental status Assessment & Plan: Imaging reviewed: -CT Head (06/21/18): No intracranial mass, hemorrhage or evidence of acute infarct. Mild age-appropriate diffuse atrophy -CT Head (06/20/18): No acute intracranial abnormalities. No significant findings to account for the clinical presentation. No significant interval change compared to the prior examination(s). -Non-contrast CT Head (06/11/18): No acute intracranial abnormality. Moderate global parenchymal volume loss. -ECHO (06/12/18): EF 55-60% -Repeat EEG (06/21/18): marked slowing, no seizures. -VEEG (06/15/18): low amplitude, no seizures. -Repeat CT Head and EEG were completed yesterday due to left gaze preference noted on neuro exam--see above for results. -LP was done on 06/18/18---results reviewed; still pending results for CSF IgG; VDRL; toxo. gondii IgG. -MRI brain is still recommended since we have already done multiple head CTs and they show no acute intracranial involvement. MRI may be done once pt's third AFB is done and if it is negative. -Maintain isolation as ordered. -Started on HAART by ID after LP was done. -Continue ICU management and recommendations per ID and other consults. -Notify neuro team of any acute changes in pt's condition. Susan Falcon DNP, [employer] Case discussed with Dr. Pandey Status: Acute
--- NOTE | 2018-06-22 11:26 | RAD ---
Date of service: 06/22/2018 HISTORY: intubated COMPARISON: 06/21/2018 FINDINGS: LUNGS: No active pulmonary disease. PLEURA: No significant pleural effusion identified, no pneumothorax apparent. CARDIOVASCULAR: No aortic atherosclerotic calcification present. Normal cardiac size. No congestive change. ET tube, NG tube and right PICC catheter are grossly unchanged in position. OSSEOUS STRUCTURES: No significant abnormalities. VISUALIZED UPPER ABDOMEN: Normal. OTHER FINDINGS: None. IMPRESSION: No active disease.
--- NOTE | 2018-06-22 13:16 | CP.PCM.PN ---
Subjective - Date & Time of Evaluation Date of Evaluation: 06/22/18 Time of Evaluation: 09:00 - Subjective Subjective: remains obtunded on vent afebrile Objective - Vital Signs/Intake and Output Vital Signs (last 24 hours): Temp Pulse Resp BP Pulse Ox 98 F 101 H 24 142/88 98 06/22/18 12:02 06/22/18 12:02 06/22/18 12:02 06/22/18 12:02 06/22/18 12:00 Intake and Output: 06/22/18 06/22/18 06:59 18:59 Intake Total 610 1748 Output Total 1000 Balance -390 1748 - Medications Medications: Current Medications Acetaminophen (Tylenol 325mg Tab) 650 mg PO Q4 PRN PRN Reason: Fever >100.4 F Last Admin: 06/21/18 08:01 Dose: 650 mg Acetaminophen (Tylenol 650 Mg Supp) 650 mg UT Q6 PRN PRN Reason: Fever >100.4 F Last Admin: 06/20/18 02:30 Dose: 650 mg Dextrose (Dextrose 50% Inj) 0 ml IV STAT PRN; Protocol PRN Reason: Hypoglycemia Protocol Dextrose (Glutose 15) 0 gm PO ONCE PRN; Protocol PRN Reason: Hypoglycemia Protocol Enoxaparin Sodium (Lovenox) 30 mg SC DAILY [facility]; Protocol Last Admin: 06/17/18 09:20 Dose: 30 mg Famotidine (Pepcid) 20 mg IVP Q12 [facility] Last Admin: 06/22/18 11:40 Dose: 20 mg Glucagon (Glucagen Diagnostic Kit) 0 mg IM STAT PRN; Protocol PRN Reason: Hypoglycemia Protocol Moxifloxacin HCl (Avelox Iv 400mg/250ml Ns) 400 mg in 250 mls @ 250 mls/hr IVPB DAILY@2100 [facility]; Protocol Last Admin: 06/21/18 21:50 Dose: 250 mls/hr Trimethoprim/Sulfamethoxazole (200 mg/ Dextrose) 250 mls @ 125 mls/hr IVPB Q12 [facility] Last Admin: 06/22/18 08:38 Dose: 125 mls/hr Ceftriaxone Sodium 2 gm/ (Sodium Chloride) 100 mls @ 100 mls/hr IVPB Q12@0900,2100 [facility] Last Admin: 06/22/18 08:40 Dose: 100 mls/hr Insulin Human Lispro (Humalog) 0 units SC Q6H [facility]; Protocol Last Admin: 06/22/18 11:38 Dose: 1 units Lamivudine (Epivir) 150 mg PO DAILY [facility]; Protocol Last Admin: 06/22/18 08:39 Dose: 150 mg Lorazepam (Ativan) 2 mg IVP Q4 PRN PRN Reason: Agitation Last Admin: 06/22/18 03:40 Dose: 2 mg Methylprednisolone (Solu-Medrol) 40 mg IVP Q12 [facility] Last Admin: 06/22/18 08:41 Dose: 40 mg Raltegravir (Isentress) 400 mg PO BID [facility]; Protocol Last Admin: 06/22/18 08:40 Dose: 400 mg Sevelamer Carbonate (Renvela) 1,600 mg PO TID [facility] Last Admin: 06/22/18 12:35 Dose: 1,600 mg Sodium Bicarbonate (Sodium Bicarbonate Tab) 650 mg PO Q8 [facility] Last Admin: 06/22/18 08:40 Dose: 650 mg Tenofovir Disoproxil Fumarate (Viread) 300 mg PO Q48H [facility]; Protocol Last Admin: 06/21/18 00:39 Dose: 300 mg - Labs Labs: 06/22/18 05:30 06/22/18 05:30 PT 13.1 Seconds (9.8-13.1) 06/18/18 05:47 INR 1.2 06/18/18 05:47 APTT 28.9 Seconds (25.6-37.1) 06/18/18 05:47 - Constitutional Appears: Confused, Cachectic, Chronically Ill - Head Exam Head Exam: NORMOCEPHALIC - Eye Exam Eye Exam: absent: Scleral icterus - ENT Exam ENT Exam: Mucous Membranes Dry - Neck Exam Neck Exam: absent: Lymphadenopathy - Respiratory Exam Respiratory Exam: Decreased Breath Sounds, Rhonchi - Cardiovascular Exam Cardiovascular Exam: Tachycardia, REGULAR RHYTHM, +S1, +S2 - GI/Abdominal Exam GI & Abdominal Exam: Distended, Soft. absent: Tenderness - Rectal Exam Rectal Exam: Deferred - Exam Exam: NORMAL INSPECTION - Extremities Exam Extremities Exam: absent: Pedal Edema - Back Exam Back Exam: absent: CVA tenderness (L), CVA tenderness (R) - Neurological Exam Neurological Exam: Altered - Psychiatric Exam Psychiatric exam: Depressed - Skin Skin Exam: Dry Assessment and Plan (1) Acute renal failure Status: Acute (2) Altered mental status Status: Acute (3) Diabetes mellitus Status: Acute (4) HIV (human immunodeficiency virus infection) Status: Acute (5) Pneumonia Status: Acute (6) Encephalopathy Status: Acute - Assessment and Plan (Free Text) Assessment: remains altered however renal function and resp status improved all cultures/ serologies negative including SHYAM Virus Toxo pending primary HIV encephalopathy a consideration- started on HAART rx neuro on board Possible MRI
--- NOTE | 2018-06-22 14:33 | CP.PCM.PN ---
Subjective - Date & Time of Evaluation Date of Evaluation: 06/22/18 Time of Evaluation: 11:30 - Subjective Subjective: F/U Respiratory Failure. intubated, sedated , restless Objective - Vital Signs/Intake and Output Vital Signs (last 24 hours): Temp Pulse Resp BP Pulse Ox 99.5 F 99 H 23 154/99 H 98 06/22/18 12:21 06/22/18 12:21 06/22/18 12:21 06/22/18 12:21 06/22/18 12:00 Intake and Output: 06/22/18 06/22/18 06:59 18:59 Intake Total 610 1748 Output Total 1000 Balance -390 1748 - Medications Medications: Current Medications Acetaminophen (Tylenol 325mg Tab) 650 mg PO Q4 PRN PRN Reason: Fever >100.4 F Last Admin: 06/21/18 08:01 Dose: 650 mg Acetaminophen (Tylenol 650 Mg Supp) 650 mg MN Q6 PRN PRN Reason: Fever >100.4 F Last Admin: 06/20/18 02:30 Dose: 650 mg Dextrose (Dextrose 50% Inj) 0 ml IV STAT PRN; Protocol PRN Reason: Hypoglycemia Protocol Dextrose (Glutose 15) 0 gm PO ONCE PRN; Protocol PRN Reason: Hypoglycemia Protocol Enoxaparin Sodium (Lovenox) 30 mg SC DAILY [facility]; Protocol Last Admin: 06/17/18 09:20 Dose: 30 mg Famotidine (Pepcid) 20 mg IVP Q12 [facility] Last Admin: 06/22/18 11:40 Dose: 20 mg Glucagon (Glucagen Diagnostic Kit) 0 mg IM STAT PRN; Protocol PRN Reason: Hypoglycemia Protocol Moxifloxacin HCl (Avelox Iv 400mg/250ml Ns) 400 mg in 250 mls @ 250 mls/hr IVPB DAILY@2100 [facility]; Protocol Last Admin: 06/21/18 21:50 Dose: 250 mls/hr Trimethoprim/Sulfamethoxazole (200 mg/ Dextrose) 250 mls @ 125 mls/hr IVPB Q12 [facility] Last Admin: 06/22/18 08:38 Dose: 125 mls/hr Ceftriaxone Sodium 2 gm/ (Sodium Chloride) 100 mls @ 100 mls/hr IVPB Q12@0900,2100 [facility] Last Admin: 06/22/18 08:40 Dose: 100 mls/hr Insulin Human Lispro (Humalog) 0 units SC Q6H [facility]; Protocol Last Admin: 06/22/18 11:38 Dose: 1 units Lamivudine (Epivir) 150 mg PO DAILY [facility]; Protocol Last Admin: 06/22/18 08:39 Dose: 150 mg Lorazepam (Ativan) 2 mg IVP Q4 PRN PRN Reason: Agitation Last Admin: 06/22/18 03:40 Dose: 2 mg Methylprednisolone (Solu-Medrol) 40 mg IVP Q12 [facility] Last Admin: 06/22/18 08:41 Dose: 40 mg Raltegravir (Isentress) 400 mg PO BID [facility]; Protocol Last Admin: 06/22/18 08:40 Dose: 400 mg Sevelamer Carbonate (Renvela) 1,600 mg PO TID [facility] Last Admin: 06/22/18 12:35 Dose: 1,600 mg Sodium Bicarbonate (Sodium Bicarbonate Tab) 650 mg PO Q8 [facility] Last Admin: 06/22/18 08:40 Dose: 650 mg Tenofovir Disoproxil Fumarate (Viread) 300 mg PO Q48H [facility]; Protocol Last Admin: 06/21/18 00:39 Dose: 300 mg - Labs Labs: 06/22/18 05:30 06/22/18 05:30 PT 13.1 Seconds (9.8-13.1) 06/18/18 05:47 INR 1.2 06/18/18 05:47 APTT 28.9 Seconds (25.6-37.1) 06/18/18 05:47 - Constitutional Appears: Chronically Ill - Head Exam Head Exam: NORMAL INSPECTION - Eye Exam Additional comments: Pupils sluggish - ENT Exam Additional comments: Intubated, OGT - Neck Exam Neck Exam: Normal Inspection - Respiratory Exam Respiratory Exam: Decreased Breath Sounds (at bases), Rhonchi - Cardiovascular Exam Cardiovascular Exam: Tachycardia - GI/Abdominal Exam GI & Abdominal Exam: Soft, Normal Bowel Sounds - Exam Additional comments: Yang Cath - Extremities Exam Additional comments: Edema BLE, BUE - Neurological Exam Additional comments: Intubated, restless, not following commands. - Skin Skin Exam: Warm Assessment and Plan (1) Respiratory failure Status: Acute (2) Altered mental status Status: Acute (3) HIV (human immunodeficiency virus infection) Status: Acute (4) Fever Status: Acute (5) Pneumonia Status: Acute (6) Severe sepsis Status: Acute (7) Acute renal failure Status: Acute (8) Diabetes mellitus Status: Acute - Assessment and Plan (Free Text) Plan: CT Head no acute pathology, mild appropiate age athrophy,f/u MRI Brain and EEG, continue ventlatory support, Avelox, Rocephin, Bactrim, HRT, Hgb 7, to have 2 U PRBC Critical care time: 35 min.
--- NOTE | 2018-06-22 15:17 | PCM.EEG ---
Electroencephalogram Report - Electroencephalogram Report Procedure Date: 06/21/18 Medication: c Moxifloxacin HCl trimethoprim/Sulfamethoxazole Lamivudine (Epivir) Lorazepam (Ativan) Methylprednisolone (Solu-Medrol) Raltegravir (Isentress) Sevelamer Carbonate (Renvela) Tenofovir Disoproxil Fumarate (Viread) Interpretation: Technical Information: This was a 16-channel EEG, 1-channel EKG routine EEG performed using [employer] equipment. Electrodes were applied using the 10/20 international placement system. Start; 16;46 End; 17;39 Total 55 min Clinical Information: Alter mental status. EEG Details During the entire study was not discernible awake EEG architecture, the tracing showed diffuse bilateral attenuation with frequencies in the 4 to 5 Hz., there was no reactivity of the EEG. Drowsiness not seen, sleep not seen. Hyperventilation was not performed. Photic stimulation was not performed. Interictal activity; none Focal abnormality; none Impression: This is an abnormal EEG record that demonstrate the presence of severe non specific diffuse disturbance of cortical activity, this is keeping with a diffuse edge matter dysfunction, these findings re not specific. No seizures. Patient is not in status epilepticus.
--- NOTE | 2018-06-22 18:56 | MRI ---
Date of service: 06/22/2018 PROCEDURE: MRI BRAIN WITHOUT CONTRAST HISTORY: persistent AMS COMPARISON: Comparison is made to the previous CT of the head dated 06/21/2018 TECHNIQUE: Multiplanar, multisequence MR images of the brain were obtained without intravenous contrast enhancement. The study is limited by motion artifact FINDINGS: HEMORRHAGE: None DWI: No evidence of an acute or early subacute infarction. BRAIN PARENCHYMA: No mass effect or edema. Moderate atrophy is noted. No evidence of significant white matter changes to suggest chronic microvascular ischemic disease. VENTRICLES: Unremarkable. No hydrocephalus. CRANIUM: Unremarkable. ORBITS: Grossly unremarkable. PARANASAL SINUSES/MASTOIDS: Clear VASCULAR SYSTEM: Skull base flow voids intact. OTHER FINDINGS: None. IMPRESSION: Limited study degraded by motion artifact. No evidence of acute infarct or acute intracranial hemorrhage. No evidence of hydrocephalus mass lesion mass effect or midline shift.
[2018-06-22] MEDS: Moxifloxacin IV 400mg/250ml NS 400 MG/250 ML BAG IVPB SCH (20:00)
[2018-06-22 22:30] LABS: HEMOGLOBIN 9.2 g/dL (12.0-18.0); MEAN CELL VOLUME 83.8 fl (80.0-94.0); MEAN CORPUSCULAR HEMOGLOBIN 27.5 pg (27.0-31.0); MEAN CORPUSCULAR HGB CONC 32.8 g/dL (33.0-37.0); RBC 3.36 Mil/uL (4.40-5.90); RED CELL DISTRIBUTION WIDTH 16.4 % (11.5-14.5); WHITE BLOOD COUNT 7.5 K/uL (4.8-10.8)
[2018-06-23] MEDS: Insulin Lispro (humaLOG) 100 Units/ml Inj SC SCH ×4 (03:23→21:07)
[2018-06-23 05:33] LABS: ABG ALLEN TEST YES; ARTERIAL BLOOD GAS HCO3 27.8 mmol/L (21-28); ARTERIAL BLOOD GAS PCO2 33 mm/Hg (35-45); ARTERIAL BLOOD GAS PH 7.51 (7.35-7.45); ARTERIAL BLOOD GAS PO2 144 mm/Hg (80-100); ARTERIAL BLOOD GAS TCO2 27.3 mmol/L (22-28)
[2018-06-23] MEDS ORDERED: Morphine 4 MG/ML VIAL IVP ONE (06:21)
[2018-06-23 06:36] LABS: HEMOGLOBIN 9.2 g/dL (12.0-18.0); MEAN CELL VOLUME 83.7 fl (80.0-94.0); MEAN CORPUSCULAR HEMOGLOBIN 27.6 pg (27.0-31.0); RBC 3.32 Mil/uL (4.40-5.90); WHITE BLOOD COUNT 6.7 K/uL (4.8-10.8)
[2018-06-23 06:44] LABS: CALCIUM 8.6 mg/dL (8.4-10.2)
[2018-06-23] MEDS: Sulfamethoxazole/Trimethoprim 200 MG in Dextrose 5% In Water 250 ML IVPB SCH ×2 (08:59→20:10)
[2018-06-23] MEDS: MethylPREDNISolone 40 mg Vial IVP SCH ×2 (09:01→20:07)
[2018-06-23] MEDS: cefTRIAXone 2 GM in Sodium Chloride 0.9% 100 ML IVPB SCH ×2 (09:01→20:08)
--- NOTE | 2018-06-23 09:12 | RAD ---
Date of service: 06/23/2018 HISTORY: intubated COMPARISON: No prior. FINDINGS: LUNGS: Bilateral interstitial infiltrates. ETT above the cassie. NG tube below the diaphragm. PLEURA: No significant pleural effusion identified, no pneumothorax apparent. CARDIOVASCULAR: No aortic atherosclerotic calcification present. Normal cardiac size. No pulmonary vascular congestion. OSSEOUS STRUCTURES: No significant abnormalities. VISUALIZED UPPER ABDOMEN: Normal. OTHER FINDINGS: None. IMPRESSION: Bilateral interstitial infiltrates. ETT above the cassie. NG tube below the diaphragm.
--- NOTE | 2018-06-23 09:46 | CP.CCUPN ---
CCU Subjective - Physician Review Events Since Last Encounter (Free Text): Patient on ventilator, on PRVC, TV 400, RR 22, FIO2 45%, opens eyes to verbal stimuli, no fever, events reviewed CCU Objective - Vital Signs / Intake & Output Vital Signs (Last 4 hours): Vital Signs Temp Pulse Resp BP Pulse Ox 06/23/18 08:00 97.7 F 78 20 140/70 96 06/23/18 06:00 98 F 76 21 124/88 96 Intake and Output (Last 8hrs): Intake & Output 06/22/18 06/23/18 06/23/18 22:59 06:59 14:59 Intake Total 1128 250 84 Output Total 875 1200 Balance 253 -950 84 Weight 133 lb 8 oz Intake: IV 8 0 4 Intake, Piggyback 600 Tube Feeding 120 80 Free Water Flush 400 250 Output: Urine 875 1200 Urethral (Yang) 875 1200 Other: # Bowel Movements 1 1 - Physical Exam Head: Positive for: Atraumatic, Normocephalic Pupils: Positive for: PERRL Conjunctiva: Positive for: Normal. Negative for: Injected, Icteric Mouth: Positive for: Moist Mucous Membranes. Negative for: Dry, Drooling Pharnyx: Positive for: Normal Nose (Internal): Positive for: Normal Inspection Neck: Positive for: Normal Range of Motion, Trachea Midline. Negative for: Meningeal Signs, MIDLINE TENDERNESS, Paraspinal Tenderness, JVD, Lymphadenopathy, Bruit, Other Respiratory/Chest: Positive for: Good Air Exchange, Decreased Breath Sounds, Rales, Rhonchi. Negative for: Respiratory Distress, Accessory Muscle Use, Tachypneic, Tender to Palpation Cardiovascular: Positive for: Regular Rate and Rhythm, Normal S1, S2, Peripheal Pulses Present. Negative for: Murmurs, Irregular Rhythm, Tachycardic, Bradycardic Abdomen: Positive for: Normal Bowel Sounds. Negative for: Tenderness, Distention Upper Extremity: Positive for: Normal Inspection Lower Extremity: Positive for: Normal Inspection Neurological: Positive for: Motor Func Grossly Intact. Negative for: GCS=15 Psychiatric: Positive for: Other (orally intubated). Negative for: Alert, Oriented x 3 - Medications Active Medications: Active Medications Generic Name Dose Route Start Last Admin Trade Name Freq PRN Reason Stop Dose Admin Acetaminophen 650 mg 06/13/18 05:17 06/21/18 08:01 Tylenol 325mg Tab PO 650 mg Q4 PRN Administration Fever >100.4 F Acetaminophen 650 mg 06/20/18 02:30 06/20/18 02:30 Tylenol 650 Mg Supp MD 650 mg Q6 PRN Administration Fever >100.4 F Dextrose 0 ml 06/11/18 22:54 Dextrose 50% Inj IV STAT PRN Hypoglycemia Protocol Protocol Dextrose 0 gm 06/11/18 22:54 Glutose 15 PO ONCE PRN Hypoglycemia Protocol Protocol Enoxaparin Sodium 30 mg 06/16/18 13:30 06/17/18 09:20 Lovenox SC 30 mg DAILY [facility] Administration Protocol Famotidine 20 mg 06/22/18 10:45 06/23/18 09:04 Pepcid IVP 20 mg Q12 [facility] Administration Glucagon 0 mg 06/11/18 22:54 Glucagen Diagnostic Kit IM STAT PRN Hypoglycemia Protocol Protocol Moxifloxacin HCl 400 mg in 250 mls @ 250 mls/hr 06/14/18 21:00 06/22/18 20:00 Avelox Iv 400mg/250ml Ns IVPB 250 mls/hr DAILY@2100 [facility] Administration Protocol Trimethoprim/Sulfamethoxazole 250 mls @ 125 mls/hr 06/17/18 21:00 06/23/18 08:59 200 mg/ Dextrose IVPB 125 mls/hr Q12 [facility] Administration Ceftriaxone Sodium 2 gm/ 100 mls @ 100 mls/hr 06/17/18 21:00 06/23/18 09:01 Sodium Chloride IVPB 100 mls/hr Q12@0900,2100 [facility] Administration Insulin Human Lispro 0 units 06/17/18 21:00 06/23/18 03:23 Humalog SC 2 units Q6H [facility] Administration Protocol Lamivudine 150 mg 06/19/18 09:00 06/23/18 09:00 Epivir PO 150 mg DAILY [facility] Administration Protocol Lorazepam 2 mg 06/22/18 17:34 06/22/18 18:10 Ativan IVP 2 mg Q4 PRN Administration Agitation Methylprednisolone 40 mg 06/13/18 21:00 06/23/18 09:01 Solu-Medrol IVP 40 mg Q12 [facility] Administration Raltegravir 400 mg 06/19/18 09:00 06/23/18 09:00 Isentress PO 400 mg BID [facility] Administration Protocol Sevelamer Carbonate 1,600 mg 06/18/18 17:00 06/23/18 09:00 Renvela PO 1,600 mg TID [facility] Administration Sodium Bicarbonate 650 mg 06/15/18 17:00 06/23/18 09:01 Sodium Bicarbonate Tab PO 650 mg Q8 [facility] Administration Tenofovir Disoproxil Fumarate 300 mg 06/18/18 23:45 06/23/18 02:00 Viread PO 300 mg Q48H [facility] Administration Protocol - Patient Studies Lab Studies: Microbiology Studies 06/21/18 08:14 Mycobacterial Culture - Preliminary Other: Please Indicate 06/18/18 12:10 Gram Stain - Final Cerebral Spinal Fluid CSF Culture - Preliminary NO GROWTH AFTER 4 DAYS 06/21/18 12:20 Gram Stain - Final Trachasp Sputum Culture - Preliminary NORMAL ORAL NILE Lab Studies 06/23/18 06/23/18 06/23/18 Range/Units 05:30 05:30 05:27 WBC 6.7 (4.8-10.8) K/uL RBC 3.32 L (4.40-5.90) Mil/uL Hgb 9.2 L (12.0-18.0) g/dL Hct 27.8 L (35.0-51.0) % MCV 83.7 (80.0-94.0) fl MCH 27.6 (27.0-31.0) pg MCHC 33.0 (33.0-37.0) g/dL RDW 17.0 H (11.5-14.5) % Plt Count 134 (130-400) K/uL pCO2 33 L (35-45) mm/Hg pO2 144 H (80-100) mm/Hg HCO3 27.8 (21-28) mmol/L ABG pH 7.51 H (7.35-7.45) ABG Total CO2 27.3 (22-28) mmol/L ABG O2 Saturation 100.0 H (95-98) % ABG Base Excess 3.6 H (-2.0-3.0) mmol/L Bright Test Yes ABG Potassium 4.7 (3.6-5.2) mmol/L A-a O2 Difference 136.0 mm/Hg Sodium 141 142.0 (132-148) mmol/L Chloride 106 115.0 H (98-107) mmol/L Glucose 223 H (75-110) mg/dL Lactate 2.5 H (0.7-2.1) mmol/L Vent Mode A/c Mechanical Rate 22 FiO2 45.0 % Tidal Volume 400 PEEP 5 Potassium 4.6 (3.6-5.0) MMOL/L Carbon Dioxide 26 (22-30) mmol/L Anion Gap 14 (10-20) BUN 58 H (9-20) mg/dl Creatinine 1.5 (0.8-1.5) mg/dl Est GFR ( Amer) 57 Est GFR (Non-Af Amer) 47 POC Glucose (mg/dL) (65-110) mg/dL Random Glucose 203 H (75-110) mg/dL Calcium 8.6 (8.4-10.2) mg/dL Procalcitonin (0.19-0.49) NG/ML Arterial Blood Potassium 4.7 (3.6-5.2) mmol/L Blood Type Antibody Screen Crossmatch BBK History Checked 06/23/18 06/22/18 06/22/18 Range/Units 03:22 22:20 20:08 WBC 7.5 (4.8-10.8) K/uL RBC 3.36 L (4.40-5.90) Mil/uL Hgb 9.2 L D (12.0-18.0) g/dL Hct 28.1 L (35.0-51.0) % MCV 83.8 (80.0-94.0) fl MCH 27.5 (27.0-31.0) pg MCHC 32.8 L (33.0-37.0) g/dL RDW 16.4 H (11.5-14.5) % Plt Count 130 (130-400) K/uL pCO2 (35-45) mm/Hg pO2 (80-100) mm/Hg HCO3 (21-28) mmol/L ABG pH (7.35-7.45) ABG Total CO2 (22-28) mmol/L ABG O2 Saturation (95-98) % ABG Base Excess (-2.0-3.0) mmol/L Bright Test ABG Potassium (3.6-5.2) mmol/L A-a O2 Difference mm/Hg Sodium (132-148) mmol/L Chloride (98-107) mmol/L Glucose (75-110) mg/dL Lactate (0.7-2.1) mmol/L Vent Mode Mechanical Rate FiO2 % Tidal Volume PEEP Potassium (3.6-5.0) MMOL/L Carbon Dioxide (22-30) mmol/L Anion Gap (10-20) BUN (9-20) mg/dl Creatinine (0.8-1.5) mg/dl Est GFR ( Amer) Est GFR (Non-Af Amer) POC Glucose (mg/dL) 209 H 167 H (65-110) mg/dL Random Glucose (75-110) mg/dL Calcium (8.4-10.2) mg/dL Procalcitonin (0.19-0.49) NG/ML Arterial Blood Potassium (3.6-5.2) mmol/L Blood Type Antibody Screen Crossmatch BBK History Checked 06/22/18 06/22/18 06/22/18 Range/Units 16:02 14:35 11:32 WBC (4.8-10.8) K/uL RBC (4.40-5.90) Mil/uL Hgb (12.0-18.0) g/dL Hct (35.0-51.0) % MCV (80.0-94.0) fl MCH (27.0-31.0) pg MCHC (33.0-37.0) g/dL RDW (11.5-14.5) % Plt Count (130-400) K/uL pCO2 (35-45) mm/Hg pO2 (80-100) mm/Hg HCO3 (21-28) mmol/L ABG pH (7.35-7.45) ABG Total CO2 (22-28) mmol/L ABG O2 Saturation (95-98) % ABG Base Excess (-2.0-3.0) mmol/L Bright Test ABG Potassium (3.6-5.2) mmol/L A-a O2 Difference mm/Hg Sodium (132-148) mmol/L Chloride (98-107) mmol/L Glucose (75-110) mg/dL Lactate (0.7-2.1) mmol/L Vent Mode Mechanical Rate FiO2 % Tidal Volume PEEP Potassium (3.6-5.0) MMOL/L Carbon Dioxide (22-30) mmol/L Anion Gap (10-20) BUN (9-20) mg/dl Creatinine (0.8-1.5) mg/dl Est GFR ( Amer) Est GFR (Non-Af Amer) POC Glucose (mg/dL) 194 H 192 H (65-110) mg/dL Random Glucose (75-110) mg/dL Calcium (8.4-10.2) mg/dL Procalcitonin 0.12 L (0.19-0.49) NG/ML Arterial Blood Potassium (3.6-5.2) mmol/L Blood Type Antibody Screen Crossmatch BBK History Checked 06/22/18 Range/Units 08:00 WBC (4.8-10.8) K/uL RBC (4.40-5.90) Mil/uL Hgb (12.0-18.0) g/dL Hct (35.0-51.0) % MCV (80.0-94.0) fl MCH (27.0-31.0) pg MCHC (33.0-37.0) g/dL RDW (11.5-14.5) % Plt Count (130-400) K/uL pCO2 (35-45) mm/Hg pO2 (80-100) mm/Hg HCO3 (21-28) mmol/L ABG pH (7.35-7.45) ABG Total CO2 (22-28) mmol/L ABG O2 Saturation (95-98) % ABG Base Excess (-2.0-3.0) mmol/L Bright Test ABG Potassium (3.6-5.2) mmol/L A-a O2 Difference mm/Hg Sodium (132-148) mmol/L Chloride (98-107) mmol/L Glucose (75-110) mg/dL Lactate (0.7-2.1) mmol/L Vent Mode Mechanical Rate FiO2 % Tidal Volume PEEP Potassium (3.6-5.0) MMOL/L Carbon Dioxide (22-30) mmol/L Anion Gap (10-20) BUN (9-20) mg/dl Creatinine (0.8-1.5) mg/dl Est GFR ( Amer) Est GFR (Non-Af Amer) POC Glucose (mg/dL) (65-110) mg/dL Random Glucose (75-110) mg/dL Calcium (8.4-10.2) mg/dL Procalcitonin (0.19-0.49) NG/ML Arterial Blood Potassium (3.6-5.2) mmol/L Blood Type B NEGATIVE Antibody Screen Negative Crossmatch See Detail BBK History Checked Patient has bt Laboratory Results - last 24 hr 06/22/18 06/22/18 06/22/18 08:00 11:32 14:35 WBC RBC Hgb Hct MCV MCH MCHC RDW Plt Count pCO2 pO2 HCO3 ABG pH ABG Total CO2 ABG O2 Saturation ABG Base Excess Bright Test ABG Potassium A-a O2 Difference Sodium Chloride Glucose Lactate Vent Mode Mechanical Rate FiO2 Tidal Volume PEEP Potassium Carbon Dioxide Anion Gap BUN Creatinine Est GFR ( Amer) Est GFR (Non-Af Amer) POC Glucose (mg/dL) 192 H Random Glucose Calcium Procalcitonin 0.12 L Arterial Blood Potassium Blood Type B NEGATIVE Antibody Screen Negative Crossmatch See Detail BBK History Checked Patient has bt 06/22/18 06/22/18 06/22/18 16:02 20:08 22:20 WBC 7.5 RBC 3.36 L Hgb 9.2 L D Hct 28.1 L MCV 83.8 MCH 27.5 MCHC 32.8 L RDW 16.4 H Plt Count 130 pCO2 pO2 HCO3 ABG pH ABG Total CO2 ABG O2 Saturation ABG Base Excess Bright Test ABG Potassium A-a O2 Difference Sodium Chloride Glucose Lactate Vent Mode Mechanical Rate FiO2 Tidal Volume PEEP Potassium Carbon Dioxide Anion Gap BUN Creatinine Est GFR ( Amer) Est GFR (Non-Af Amer) POC Glucose (mg/dL) 194 H 167 H Random Glucose Calcium Procalcitonin Arterial Blood Potassium Blood Type Antibody Screen Crossmatch BBK History Checked 06/23/18 06/23/18 06/23/18 03:22 05:27 05:30 WBC 6.7 RBC 3.32 L Hgb 9.2 L Hct 27.8 L MCV 83.7 MCH 27.6 MCHC 33.0 RDW 17.0 H Plt Count 134 pCO2 33 L pO2 144 H HCO3 27.8 ABG pH 7.51 H ABG Total CO2 27.3 ABG O2 Saturation 100.0 H ABG Base Excess 3.6 H Bright Test Yes ABG Potassium 4.7 A-a O2 Difference 136.0 Sodium 142.0 Chloride 115.0 H Glucose 223 H Lactate 2.5 H Vent Mode A/c Mechanical Rate 22 FiO2 45.0 Tidal Volume 400 PEEP 5 Potassium Carbon Dioxide Anion Gap BUN Creatinine Est GFR ( Amer) Est GFR (Non-Af Amer) POC Glucose (mg/dL) 209 H Random Glucose Calcium Procalcitonin Arterial Blood Potassium 4.7 Blood Type Antibody Screen Crossmatch BBK History Checked 06/23/18 05:30 WBC RBC Hgb Hct MCV MCH MCHC RDW Plt Count pCO2 pO2 HCO3 ABG pH ABG Total CO2 ABG O2 Saturation ABG Base Excess Bright Test ABG Potassium A-a O2 Difference Sodium 141 Chloride 106 Glucose Lactate Vent Mode Mechanical Rate FiO2 Tidal Volume PEEP Potassium 4.6 Carbon Dioxide 26 Anion Gap 14 BUN 58 H Creatinine 1.5 Est GFR ( Amer) 57 Est GFR (Non-Af Amer) 47 POC Glucose (mg/dL) Random Glucose 203 H Calcium 8.6 Procalcitonin Arterial Blood Potassium Blood Type Antibody Screen Crossmatch BBK History Checked Radiology Impressions: Radiology Impressions Chest X-Ray 06/22/18 10:10 IMPRESSION: No active disease. Brain MRI 06/22/18 14:05 IMPRESSION: Limited study degraded by motion artifact. No evidence of acute infarct or acute intracranial hemorrhage. No evidence of hydrocephalus mass lesion mass effect or midline shift. Chest X-Ray 06/23/18 05:00 IMPRESSION: Bilateral interstitial infiltrates. ETT above the cassie. NG tube below the diaphragm. Fingerstick Blood Sugar Results: 209 Critical Care Progress Note - Nutrition Nutrition: Nutrition Category Date Time Status NPO Diet [DIET] Diets 06/19/18 Dinner Active Assessment/Plan - Assessment and Plan (Free Text) Assessment: A/P Respiratory failure, pneumonia, sepsis, HIV, AMS, azotemia/dehydration, anemia - Ventilatory support - Pulmonary toilets - Continue meds - ID follow up - Neurology follow up critical care 35 min
--- NOTE | 2018-06-23 13:54 | CP.PCM.PN ---
Subjective - Date & Time of Evaluation Date of Evaluation: 06/23/18 Time of Evaluation: 12:20 - Subjective Subjective: Respiratory Failure Pt intubated, sedated Objective - Vital Signs/Intake and Output Vital Signs (last 24 hours): Temp Pulse Resp BP Pulse Ox 98.7 F 84 21 148/88 94 L 06/23/18 12:00 06/23/18 12:00 06/23/18 12:00 06/23/18 12:00 06/23/18 12:00 Intake and Output: 06/23/18 06/23/18 06:59 18:59 Intake Total 1050 848 Output Total 1200 Balance -150 848 - Medications Medications: Current Medications Acetaminophen (Tylenol 325mg Tab) 650 mg PO Q4 PRN PRN Reason: Fever >100.4 F Last Admin: 06/21/18 08:01 Dose: 650 mg Acetaminophen (Tylenol 650 Mg Supp) 650 mg IN Q6 PRN PRN Reason: Fever >100.4 F Last Admin: 06/20/18 02:30 Dose: 650 mg Dextrose (Dextrose 50% Inj) 0 ml IV STAT PRN; Protocol PRN Reason: Hypoglycemia Protocol Dextrose (Glutose 15) 0 gm PO ONCE PRN; Protocol PRN Reason: Hypoglycemia Protocol Enoxaparin Sodium (Lovenox) 30 mg SC DAILY [facility]; Protocol Last Admin: 06/17/18 09:20 Dose: 30 mg Famotidine (Pepcid) 20 mg IVP Q12 [facility] Last Admin: 06/23/18 09:04 Dose: 20 mg Glucagon (Glucagen Diagnostic Kit) 0 mg IM STAT PRN; Protocol PRN Reason: Hypoglycemia Protocol Moxifloxacin HCl (Avelox Iv 400mg/250ml Ns) 400 mg in 250 mls @ 250 mls/hr IVPB DAILY@2100 [facility]; Protocol Last Admin: 06/22/18 20:00 Dose: 250 mls/hr Trimethoprim/Sulfamethoxazole (200 mg/ Dextrose) 250 mls @ 125 mls/hr IVPB Q12 [facility] Last Admin: 06/23/18 08:59 Dose: 125 mls/hr Ceftriaxone Sodium 2 gm/ (Sodium Chloride) 100 mls @ 100 mls/hr IVPB Q12@0900,2100 [facility] Last Admin: 06/23/18 09:01 Dose: 100 mls/hr Insulin Human Lispro (Humalog) 0 units SC Q6H [facility]; Protocol Last Admin: 06/23/18 09:45 Dose: 1 units Lamivudine (Epivir) 150 mg PO DAILY [facility]; Protocol Last Admin: 06/23/18 09:00 Dose: 150 mg Lorazepam (Ativan) 2 mg IVP Q4 PRN PRN Reason: Agitation Last Admin: 06/22/18 18:10 Dose: 2 mg Methylprednisolone (Solu-Medrol) 40 mg IVP Q12 [facility] Last Admin: 06/23/18 09:01 Dose: 40 mg Raltegravir (Isentress) 400 mg PO BID [facility]; Protocol Last Admin: 06/23/18 09:00 Dose: 400 mg Sevelamer Carbonate (Renvela) 1,600 mg PO TID [facility] Last Admin: 06/23/18 13:22 Dose: 1,600 mg Sodium Bicarbonate (Sodium Bicarbonate Tab) 650 mg PO Q8 [facility] Last Admin: 06/23/18 09:01 Dose: 650 mg Tenofovir Disoproxil Fumarate (Viread) 300 mg PO Q48H [facility]; Protocol Last Admin: 06/23/18 02:00 Dose: 300 mg - Labs Labs: 06/23/18 05:30 06/23/18 05:30 PT 13.1 Seconds (9.8-13.1) 06/18/18 05:47 INR 1.2 06/18/18 05:47 APTT 28.9 Seconds (25.6-37.1) 06/18/18 05:47 - Constitutional Appears: Chronically Ill - Head Exam Head Exam: NORMAL INSPECTION - Eye Exam Additional comments: Pupils sluggish - ENT Exam Additional comments: Intubated. OGT - Neck Exam Neck Exam: Normal Inspection - Respiratory Exam Respiratory Exam: Decreased Breath Sounds (at bases), Rhonchi - Cardiovascular Exam Cardiovascular Exam: Tachycardia - GI/Abdominal Exam GI & Abdominal Exam: Soft, Normal Bowel Sounds - Exam Additional comments: Yang cath - Extremities Exam Extremities Exam: Normal Inspection - Neurological Exam Additional comments: Intubated, restless, not following commands. - Skin Skin Exam: Warm Assessment and Plan (1) Respiratory failure Status: Acute (2) Altered mental status Status: Acute (3) HIV (human immunodeficiency virus infection) Status: Acute (4) Fever Status: Acute (5) Pneumonia Status: Acute (6) Severe sepsis Status: Acute (7) Acute renal failure Status: Acute (8) Diabetes mellitus Status: Acute - Assessment and Plan (Free Text) Plan: Pt off isolation , EEG: Severe non specific diffused disturbance of cortical activity. Brain MRI: Limited study. No evidence of infarct, hemorrhage, mass lesion, mass effect or midline shift. Continue Avelox, Ceftriaxone, Epivir and rest of Tx. Critical care time: 35 min.
[2018-06-23] MEDS: Moxifloxacin IV 400mg/250ml NS 400 MG/250 ML BAG IVPB SCH (20:08)
[2018-06-24] MEDS: Insulin Lispro (humaLOG) 100 Units/ml Inj SC SCH ×5 (04:00→21:36)
[2018-06-24 05:04] LABS: ABG ALLEN TEST YES; ARTERIAL BLOOD GAS HCO3 29.3 mmol/L (21-28); ARTERIAL BLOOD GAS HEMOGLOBIN 9.8 g/dL (11.7-17.4); ARTERIAL BLOOD GAS O2 CAPACITY 13.4 mL/dL (16-24); ARTERIAL BLOOD GAS O2 CONTENT 13.4 ML/dL (15-23); ARTERIAL BLOOD GAS O2 SAT 99.7 % (95-98); ARTERIAL BLOOD GAS PCO2 33 mm/Hg (35-45); ARTERIAL BLOOD GAS PH 7.54 (7.35-7.45); ARTERIAL BLOOD GAS PO2 77 mm/Hg (80-100); ARTERIAL BLOOD GAS TCO2 29.2 mmol/L (22-28)
[2018-06-24 06:29] LABS: HEMOGLOBIN 8.8 g/dL (12.0-18.0); MEAN CORPUSCULAR HEMOGLOBIN 27.4 pg (27.0-31.0); MEAN CORPUSCULAR HGB CONC 32.6 g/dL (33.0-37.0); RBC 3.22 Mil/uL (4.40-5.90); RED CELL DISTRIBUTION WIDTH 16.4 % (11.5-14.5); WHITE BLOOD COUNT 5.4 K/uL (4.8-10.8)
[2018-06-24 06:44] LABS: BLOOD UREA NITROGEN 53 mg/dl (9-20); CALCIUM 8.3 mg/dL (8.4-10.2); GFR NON-AFRICAN AMERICAN 55
--- NOTE | 2018-06-24 07:53 | CP.CCUPN ---
CCU Subjective - Physician Review Events Since Last Encounter (Free Text): Patient on ventilator, on PRVC, TV 400, RR 22, FIO2 45%, opens eyes to verbal stimuli, no fever, events reviewed CCU Objective - Vital Signs / Intake & Output Vital Signs (Last 4 hours): Vital Signs Pulse Resp BP Pulse Ox 06/24/18 07:50 85 26 H 128/73 97 06/24/18 06:00 77 27 H 149/74 95 06/24/18 04:00 60 22 104/61 96 Intake and Output (Last 8hrs): Intake & Output 06/23/18 06/24/18 06/24/18 22:59 06:59 14:59 Intake Total 1338 760 80 Output Total 1050 1100 Balance 288 -340 80 Weight 131 lb Intake: IV 8 Intake, Piggyback 600 Tube Feeding 280 360 80 Free Water Flush 450 400 Output: Urine 1050 1100 Urethral (Ynag) 1050 1100 Other: # Bowel Movements 1 1 - Physical Exam Head: Positive for: Atraumatic, Normocephalic Pupils: Positive for: PERRL Extroacular Muscles: Positive for: EOMI Conjunctiva: Positive for: Normal. Negative for: Injected, Icteric Mouth: Positive for: Moist Mucous Membranes. Negative for: Dry, Drooling Pharnyx: Positive for: Normal Nose (Internal): Positive for: Normal Inspection Neck: Positive for: Normal Range of Motion, Trachea Midline. Negative for: Meningeal Signs, MIDLINE TENDERNESS, Paraspinal Tenderness, JVD, Lymphadenopathy, Bruit, Other Respiratory/Chest: Positive for: Good Air Exchange, Decreased Breath Sounds, Rales, Rhonchi. Negative for: Respiratory Distress, Accessory Muscle Use, Tachypneic, Tender to Palpation Cardiovascular: Positive for: Regular Rate and Rhythm, Normal S1, S2, Peripheal Pulses Present. Negative for: Murmurs, Irregular Rhythm, Tachycardic, Bradycardic Abdomen: Positive for: Normal Bowel Sounds. Negative for: Tenderness, Distention Upper Extremity: Positive for: Normal Inspection Lower Extremity: Positive for: Normal Inspection Neurological: Positive for: Motor Func Grossly Intact. Negative for: GCS=15 Psychiatric: Positive for: Other (orally intubated). Negative for: Alert, Oriented x 3 - Medications Active Medications: Active Medications Generic Name Dose Route Start Last Admin Trade Name Freq PRN Reason Stop Dose Admin Acetaminophen 650 mg 02/06/19 05:17 06/23/18 23:35 Tylenol 325mg Tab PO 650 mg Q4 PRN Administration Fever >100.4 F Acetaminophen 650 mg 06/20/18 02:30 06/20/18 02:30 Tylenol 650 Mg Supp SD 650 mg Q6 PRN Administration Fever >100.4 F Dextrose 0 ml 06/11/18 22:54 Dextrose 50% Inj IV STAT PRN Hypoglycemia Protocol Protocol Dextrose 0 gm 06/11/18 22:54 Glutose 15 PO ONCE PRN Hypoglycemia Protocol Protocol Enoxaparin Sodium 30 mg 06/16/18 13:30 06/17/18 09:20 Lovenox SC 30 mg DAILY [facility] Administration Protocol Famotidine 20 mg 06/22/18 10:45 06/23/18 21:12 Pepcid IVP 20 mg Q12 [facility] Administration Glucagon 0 mg 06/11/18 22:54 Glucagen Diagnostic Kit IM STAT PRN Hypoglycemia Protocol Protocol Moxifloxacin HCl 400 mg in 250 mls @ 250 mls/hr 06/14/18 21:00 06/23/18 20:08 Avelox Iv 400mg/250ml Ns IVPB 250 mls/hr DAILY@2100 [facility] Administration Protocol Trimethoprim/Sulfamethoxazole 250 mls @ 125 mls/hr 06/17/18 21:00 06/23/18 20:10 200 mg/ Dextrose IVPB 125 mls/hr Q12 [facility] Administration Ceftriaxone Sodium 2 gm/ 100 mls @ 100 mls/hr 06/17/18 21:00 06/23/18 20:08 Sodium Chloride IVPB 100 mls/hr Q12@0900,2100 [facility] Administration Insulin Human Lispro 0 units 06/17/18 21:00 06/24/18 04:00 Humalog SC 2 units Q6H [facility] Administration Protocol Lamivudine 150 mg 06/19/18 09:00 06/23/18 09:00 Epivir PO 150 mg DAILY [facility] Administration Protocol Lorazepam 2 mg 06/22/18 17:34 06/24/18 00:11 Ativan IVP 2 mg Q4 PRN Administration Agitation Methylprednisolone 40 mg 06/13/18 21:00 06/23/18 20:07 Solu-Medrol IVP 40 mg Q12 [facility] Administration Raltegravir 400 mg 06/19/18 09:00 06/23/18 16:40 Isentress PO 400 mg BID [facility] Administration Protocol Sevelamer Carbonate 1,600 mg 06/18/18 17:00 06/23/18 16:40 Renvela PO 1,600 mg TID [facility] Administration Sodium Bicarbonate 650 mg 06/15/18 17:00 06/24/18 00:07 Sodium Bicarbonate Tab PO 650 mg Q8 [facility] Administration Tenofovir Disoproxil Fumarate 300 mg 06/18/18 23:45 06/23/18 02:00 Viread PO 300 mg Q48H [facility] Administration Protocol - Patient Studies Lab Studies: Microbiology Studies 06/18/18 12:10 Gram Stain - Final Cerebral Spinal Fluid CSF Culture - Final No growth. 06/21/18 12:20 Gram Stain - Final Trachasp Sputum Culture - Final Yeast Species Lab Studies 06/24/18 06/24/18 06/24/18 Range/Units 05:25 05:25 04:58 WBC 5.4 (4.8-10.8) K/uL RBC 3.22 L (4.40-5.90) Mil/uL Hgb 8.8 L (12.0-18.0) g/dL Hct 27.0 L (35.0-51.0) % MCV 84.0 (80.0-94.0) fl MCH 27.4 (27.0-31.0) pg MCHC 32.6 L (33.0-37.0) g/dL RDW 16.4 H (11.5-14.5) % Plt Count 129 L (130-400) K/uL pCO2 33 L (35-45) mm/Hg pO2 77 L (80-100) mm/Hg HCO3 29.3 H (21-28) mmol/L ABG pH 7.54 H (7.35-7.45) ABG Total CO2 29.2 H (22-28) mmol/L ABG O2 Saturation 99.7 H (95-98) % ABG O2 Content 13.4 L (15-23) ML/dL ABG Base Excess 5.6 H (-2.0-3.0) mmol/L ABG Hemoglobin 9.8 L (11.7-17.4) g/dL ABG Carboxyhemoglobin 2.0 H (0.5-1.5) % POC ABG HHb (Measured) 0.3 (0.0-5.0) % ABG Methemoglobin 1.0 (0.0-3.0) % ABG O2 Capacity 13.4 L (16-24) mL/dL Bright Test Yes A-a O2 Difference 203.0 mm/Hg Hgb O2 Saturation 96.7 (95.0-98.0) % Vent Mode A/c Mechanical Rate 22 FiO2 45.0 % Tidal Volume 400 PEEP 5 Sodium 138 (132-148) mmol/l Potassium 5.0 (3.6-5.0) MMOL/L Chloride 102 (98-107) mmol/L Carbon Dioxide 27 (22-30) mmol/L Anion Gap 14 (10-20) BUN 53 H (9-20) mg/dl Creatinine 1.3 (0.8-1.5) mg/dl Est GFR ( Amer) > 60 Est GFR (Non-Af Amer) 55 POC Glucose (mg/dL) (65-110) mg/dL Random Glucose 233 H (75-110) mg/dL Calcium 8.3 L (8.4-10.2) mg/dL CSF Toxo. gondii IgG 06/24/18 06/23/18 06/23/18 Range/Units 04:13 20:59 16:31 WBC (4.8-10.8) K/uL RBC (4.40-5.90) Mil/uL Hgb (12.0-18.0) g/dL Hct (35.0-51.0) % MCV (80.0-94.0) fl MCH (27.0-31.0) pg MCHC (33.0-37.0) g/dL RDW (11.5-14.5) % Plt Count (130-400) K/uL pCO2 (35-45) mm/Hg pO2 (80-100) mm/Hg HCO3 (21-28) mmol/L ABG pH (7.35-7.45) ABG Total CO2 (22-28) mmol/L ABG O2 Saturation (95-98) % ABG O2 Content (15-23) ML/dL ABG Base Excess (-2.0-3.0) mmol/L ABG Hemoglobin (11.7-17.4) g/dL ABG Carboxyhemoglobin (0.5-1.5) % POC ABG HHb (Measured) (0.0-5.0) % ABG Methemoglobin (0.0-3.0) % ABG O2 Capacity (16-24) mL/dL Bright Test A-a O2 Difference mm/Hg Hgb O2 Saturation (95.0-98.0) % Vent Mode Mechanical Rate FiO2 % Tidal Volume PEEP Sodium (132-148) mmol/l Potassium (3.6-5.0) MMOL/L Chloride (98-107) mmol/L Carbon Dioxide (22-30) mmol/L Anion Gap (10-20) BUN (9-20) mg/dl Creatinine (0.8-1.5) mg/dl Est GFR ( Amer) Est GFR (Non-Af Amer) POC Glucose (mg/dL) 240 H 150 H 250 H (65-110) mg/dL Random Glucose (75-110) mg/dL Calcium (8.4-10.2) mg/dL CSF Toxo. gondii IgG 06/23/18 06/18/18 Range/Units 09:43 12:10 WBC (4.8-10.8) K/uL RBC (4.40-5.90) Mil/uL Hgb (12.0-18.0) g/dL Hct (35.0-51.0) % MCV (80.0-94.0) fl MCH (27.0-31.0) pg MCHC (33.0-37.0) g/dL RDW (11.5-14.5) % Plt Count (130-400) K/uL pCO2 (35-45) mm/Hg pO2 (80-100) mm/Hg HCO3 (21-28) mmol/L ABG pH (7.35-7.45) ABG Total CO2 (22-28) mmol/L ABG O2 Saturation (95-98) % ABG O2 Content (15-23) ML/dL ABG Base Excess (-2.0-3.0) mmol/L ABG Hemoglobin (11.7-17.4) g/dL ABG Carboxyhemoglobin (0.5-1.5) % POC ABG HHb (Measured) (0.0-5.0) % ABG Methemoglobin (0.0-3.0) % ABG O2 Capacity (16-24) mL/dL Bright Test A-a O2 Difference mm/Hg Hgb O2 Saturation (95.0-98.0) % Vent Mode Mechanical Rate FiO2 % Tidal Volume PEEP Sodium (132-148) mmol/l Potassium (3.6-5.0) MMOL/L Chloride (98-107) mmol/L Carbon Dioxide (22-30) mmol/L Anion Gap (10-20) BUN (9-20) mg/dl Creatinine (0.8-1.5) mg/dl Est GFR ( Amer) Est GFR (Non-Af Amer) POC Glucose (mg/dL) 159 H (65-110) mg/dL Random Glucose (75-110) mg/dL Calcium (8.4-10.2) mg/dL CSF Toxo. gondii IgG <0.90 Laboratory Results - last 24 hr 06/18/18 06/23/18 06/23/18 12:10 09:43 16:31 WBC RBC Hgb Hct MCV MCH MCHC RDW Plt Count pCO2 pO2 HCO3 ABG pH ABG Total CO2 ABG O2 Saturation ABG O2 Content ABG Base Excess ABG Hemoglobin ABG Carboxyhemoglobin POC ABG HHb (Measured) ABG Methemoglobin ABG O2 Capacity Bright Test A-a O2 Difference Hgb O2 Saturation Vent Mode Mechanical Rate FiO2 Tidal Volume PEEP Sodium Potassium Chloride Carbon Dioxide Anion Gap BUN Creatinine Est GFR ( Amer) Est GFR (Non-Af Amer) POC Glucose (mg/dL) 159 H 250 H Random Glucose Calcium CSF Toxo. gondii IgG <0.90 06/23/18 06/24/18 06/24/18 20:59 04:13 04:58 WBC RBC Hgb Hct MCV MCH MCHC RDW Plt Count pCO2 33 L pO2 77 L HCO3 29.3 H ABG pH 7.54 H ABG Total CO2 29.2 H ABG O2 Saturation 99.7 H ABG O2 Content 13.4 L ABG Base Excess 5.6 H ABG Hemoglobin 9.8 L ABG Carboxyhemoglobin 2.0 H POC ABG HHb (Measured) 0.3 ABG Methemoglobin 1.0 ABG O2 Capacity 13.4 L Bright Test Yes A-a O2 Difference 203.0 Hgb O2 Saturation 96.7 Vent Mode A/c Mechanical Rate 22 FiO2 45.0 Tidal Volume 400 PEEP 5 Sodium Potassium Chloride Carbon Dioxide Anion Gap BUN Creatinine Est GFR ( Amer) Est GFR (Non-Af Amer) POC Glucose (mg/dL) 150 H 240 H Random Glucose Calcium CSF Toxo. gondii IgG 06/24/18 06/24/18 05:25 05:25 WBC 5.4 RBC 3.22 L Hgb 8.8 L Hct 27.0 L MCV 84.0 MCH 27.4 MCHC 32.6 L RDW 16.4 H Plt Count 129 L pCO2 pO2 HCO3 ABG pH ABG Total CO2 ABG O2 Saturation ABG O2 Content ABG Base Excess ABG Hemoglobin ABG Carboxyhemoglobin POC ABG HHb (Measured) ABG Methemoglobin ABG O2 Capacity Bright Test A-a O2 Difference Hgb O2 Saturation Vent Mode Mechanical Rate FiO2 Tidal Volume PEEP Sodium 138 Potassium 5.0 Chloride 102 Carbon Dioxide 27 Anion Gap 14 BUN 53 H Creatinine 1.3 Est GFR ( Amer) > 60 Est GFR (Non-Af Amer) 55 POC Glucose (mg/dL) Random Glucose 233 H Calcium 8.3 L CSF Toxo. gondii IgG Radiology Impressions: Radiology Impressions Chest X-Ray 06/23/18 05:00 IMPRESSION: Bilateral interstitial infiltrates. ETT above the cassie. NG tube below the diaphragm. Fingerstick Blood Sugar Results: 231 Critical Care Progress Note - Nutrition Nutrition: Nutrition Category Date Time Status NPO Diet [DIET] Diets 06/19/18 Dinner Active Assessment/Plan - Assessment and Plan (Free Text) Assessment: A/P Respiratory failure, pneumonia, sepsis, HIV, AMS, azotemia/dehydration, anemia - Ventilatory support - Pulmonary toilets - Continue meds - ID follow up - Neurology follow up critical care 35 min
[2018-06-24] MEDS: cefTRIAXone 2 GM in Sodium Chloride 0.9% 100 ML IVPB SCH (08:47)
[2018-06-24] MEDS: MethylPREDNISolone 40 mg Vial IVP SCH ×2 (08:48→21:32)
--- NOTE | 2018-06-24 09:19 | RAD ---
Date of service: 06/24/2018 HISTORY: intubated COMPARISON: 06/23/2018 FINDINGS: LUNGS: Bilateral interstitial infiltrates with likely superimposed consolidation at the left base. PLEURA: No significant pleural effusion identified, no pneumothorax apparent. CARDIOVASCULAR: No aortic atherosclerotic calcification present. Normal cardiac size. No pulmonary vascular congestion. OSSEOUS STRUCTURES: No significant abnormalities. VISUALIZED UPPER ABDOMEN: Normal. OTHER FINDINGS: Tubes and catheters unchanged in position. IMPRESSION: Bilateral interstitial infiltrates with likely superimposed consolidation at the left base.
[2018-06-24] MEDS: Sulfamethoxazole/Trimethoprim 200 MG in Dextrose 5% In Water 250 ML IVPB SCH (10:50)
--- NOTE | 2018-06-24 13:52 | CP.PCM.PN ---
Subjective - Date & Time of Evaluation Date of Evaluation: 06/24/18 Time of Evaluation: 09:00 - Subjective Subjective: opens eyes confused nad intubated afebrile Objective - Vital Signs/Intake and Output Vital Signs (last 24 hours): Temp Pulse Resp BP Pulse Ox 97.9 F 69 22 134/95 H 95 06/24/18 12:20 06/24/18 12:20 06/24/18 12:20 06/24/18 12:20 06/24/18 12:20 Intake and Output: 06/24/18 06/24/18 06:59 18:59 Intake Total 1680 790 Output Total 1100 Balance 580 790 - Medications Medications: Current Medications Acetaminophen (Tylenol 325mg Tab) 650 mg PO Q4 PRN PRN Reason: Fever >100.4 F Last Admin: 06/23/18 23:35 Dose: 650 mg Acetaminophen (Tylenol 650 Mg Supp) 650 mg [place] Q6 PRN PRN Reason: Fever >100.4 F Last Admin: 06/20/18 02:30 Dose: 650 mg Dextrose (Dextrose 50% Inj) 0 ml IV STAT PRN; Protocol PRN Reason: Hypoglycemia Protocol Dextrose (Glutose 15) 0 gm PO ONCE PRN; Protocol PRN Reason: Hypoglycemia Protocol Enoxaparin Sodium (Lovenox) 30 mg SC DAILY [facility]; Protocol Last Admin: 06/17/18 09:20 Dose: 30 mg Famotidine (Pepcid) 20 mg IVP Q12 [facility] Last Admin: 06/24/18 08:52 Dose: 20 mg Glucagon (Glucagen Diagnostic Kit) 0 mg IM STAT PRN; Protocol PRN Reason: Hypoglycemia Protocol Moxifloxacin HCl (Avelox Iv 400mg/250ml Ns) 400 mg in 250 mls @ 250 mls/hr IVPB DAILY@2100 [facility]; Protocol Last Admin: 06/23/18 20:08 Dose: 250 mls/hr Trimethoprim/Sulfamethoxazole (200 mg/ Dextrose) 250 mls @ 125 mls/hr IVPB Q12 [facility] Last Admin: 06/24/18 10:50 Dose: 125 mls/hr Ceftriaxone Sodium 2 gm/ (Sodium Chloride) 100 mls @ 100 mls/hr IVPB Q12@0900,2 100 [facility] Last Admin: 06/24/18 08:47 Dose: 100 mls/hr Insulin Human Lispro (Humalog) 0 units SC Q6H [facility]; Protocol Last Admin: 06/24/18 12:03 Dose: Not Given Lamivudine (Epivir) 150 mg PO DAILY [facility]; Protocol Last Admin: 06/24/18 08:55 Dose: 150 mg Lorazepam (Ativan) 2 mg IVP Q4 PRN PRN Reason: Agitation Last Admin: 06/24/18 13:27 Dose: 2 mg Methylprednisolone (Solu-Medrol) 40 mg IVP Q12 [facility] Last Admin: 06/24/18 08:48 Dose: 40 mg Raltegravir (Isentress) 400 mg PO BID [facility]; Protocol Last Admin: 06/24/18 10:50 Dose: 400 mg Sevelamer Carbonate (Renvela) 1,600 mg PO TID [facility] Last Admin: 06/24/18 13:12 Dose: 1,600 mg Sodium Bicarbonate (Sodium Bicarbonate Tab) 650 mg PO Q8 [facility] Last Admin: 06/24/18 08:48 Dose: 650 mg Tenofovir Disoproxil Fumarate (Viread) 300 mg PO Q48H [facility]; Protocol Last Admin: 06/23/18 02:00 Dose: 300 mg - Labs Labs: 06/24/18 05:25 06/24/18 05:25 PT 13.1 Seconds (9.8-13.1) 06/18/18 05:47 INR 1.2 06/18/18 05:47 APTT 28.9 Seconds (25.6-37.1) 06/18/18 05:47 - Constitutional Appears: Non-toxic, Confused, Chronically Ill - Head Exam Head Exam: ATRAUMATIC, NORMOCEPHALIC - Eye Exam Eye Exam: absent: Scleral icterus - ENT Exam ENT Exam: Mucous Membranes Dry - Neck Exam Neck Exam: absent: Lymphadenopathy - Respiratory Exam Respiratory Exam: Decreased Breath Sounds, Prolonged Expiratory Phase, Rhonchi - Cardiovascular Exam Cardiovascular Exam: REGULAR RHYTHM, +S1, +S2 - GI/Abdominal Exam GI & Abdominal Exam: Distended, Soft. absent: Tenderness - Rectal Exam Rectal Exam: Deferred - Exam Exam: NORMAL INSPECTION - Extremities Exam Extremities Exam: absent: Pedal Edema - Back Exam Back Exam: absent: CVA tenderness (L), CVA tenderness (R) - Neurological Exam Neurological Exam: Altered - Psychiatric Exam Psychiatric exam: Depressed - Skin Skin Exam: Dry Assessment and Plan (1) Acute renal failure Status: Acute (2) Altered mental status Status: Acute (3) Diabetes mellitus Status: Acute (4) HIV (human immunodeficiency virus infection) Status: Acute (5) Pneumonia Status: Acute (6) Encephalopathy Status: Acute - Assessment and Plan (Free Text) Assessment: cont rx for pneumonia MRI results pending [facility] rx in progress Zithromax added for MAC prophylaxis
[2018-06-24] MEDS ORDERED: Tmp-Smz 16 mg-80 mg/ml Inj IVPB SCH (14:15)
--- NOTE | 2018-06-24 14:31 | CP.PCM.PN ---
Subjective - Date & Time of Evaluation Date of Evaluation: 06/24/18 Time of Evaluation: 13:20 - Subjective Subjective: F/U Respiratory failure. Intubated, restless at times, had Ativan in AM, calm now, eyes open, not following commands, Objective - Vital Signs/Intake and Output Vital Signs (last 24 hours): Temp Pulse Resp BP Pulse Ox 97.9 F 72 22 127/78 96 06/24/18 12:20 06/24/18 14:00 06/24/18 14:00 06/24/18 14:00 06/24/18 14:00 Intake and Output: 06/24/18 06/24/18 06:59 18:59 Intake Total 1680 1070 Output Total 1100 Balance 580 1070 - Medications Medications: Current Medications Acetaminophen (Tylenol 325mg Tab) 650 mg PO Q4 PRN PRN Reason: Fever >100.4 F Last Admin: 06/23/18 23:35 Dose: 650 mg Acetaminophen (Tylenol 650 Mg Supp) 650 mg [place] Q6 PRN PRN Reason: Fever >100.4 F Last Admin: 06/20/18 02:30 Dose: 650 mg Azithromycin (Zithromax) 1,200 mg PO QWK [facility]; Protocol Dextrose (Dextrose 50% Inj) 0 ml IV STAT PRN; Protocol PRN Reason: Hypoglycemia Protocol Dextrose (Glutose 15) 0 gm PO ONCE PRN; Protocol PRN Reason: Hypoglycemia Protocol Enoxaparin Sodium (Lovenox) 30 mg SC DAILY [facility]; Protocol Last Admin: 06/17/18 09:20 Dose: 30 mg Famotidine (Pepcid) 20 mg IVP Q12 [facility] Last Admin: 06/24/18 08:52 Dose: 20 mg Glucagon (Glucagen Diagnostic Kit) 0 mg IM STAT PRN; Protocol PRN Reason: Hypoglycemia Protocol Micafungin Sodium 100 mg/ (Sodium Chloride) 100 mls @ 100 mls/hr IVPB DAILY [facility]; Protocol Trimethoprim/Sulfamethoxazole (475 mg/ Dextrose) 500 mls @ 250 mls/hr IVPB Q12 [facility] Insulin Human Lispro (Humalog) 0 units SC Q6H [facility]; Protocol Last Admin: 06/24/18 12:03 Dose: Not Given Lamivudine (Epivir) 300 mg PO DAILY [facility]; Protocol Lorazepam (Ativan) 2 mg IVP Q4 PRN PRN Reason: Agitation Last Admin: 06/24/18 13:27 Dose: 2 mg Methylprednisolone (Solu-Medrol) 40 mg IVP Q12 [facility] Last Admin: 06/24/18 08:48 Dose: 40 mg Raltegravir (Isentress) 400 mg PO BID [facility]; Protocol Last Admin: 06/24/18 10:50 Dose: 400 mg Sevelamer Carbonate (Renvela) 1,600 mg PO TID [facility] Last Admin: 06/24/18 13:12 Dose: 1,600 mg Sodium Bicarbonate (Sodium Bicarbonate Tab) 650 mg PO Q8 [facility] Last Admin: 06/24/18 08:48 Dose: 650 mg Tenofovir Disoproxil Fumarate (Viread) 300 mg PO DAILY [facility]; Protocol - Labs Labs: 06/24/18 05:25 06/24/18 05:25 PT 13.1 Seconds (9.8-13.1) 06/18/18 05:47 INR 1.2 06/18/18 05:47 APTT 28.9 Seconds (25.6-37.1) 06/18/18 05:47 - Constitutional Appears: Chronically Ill - Head Exam Head Exam: NORMAL INSPECTION - Eye Exam Additional comments: Pupils sluggish - ENT Exam Additional comments: Intubated. OGT - Neck Exam Neck Exam: Normal Inspection - Respiratory Exam Respiratory Exam: Decreased Breath Sounds (at bases), Rhonchi - Cardiovascular Exam Cardiovascular Exam: REGULAR RHYTHM - GI/Abdominal Exam GI & Abdominal Exam: Soft, Normal Bowel Sounds - Exam Additional comments: Yang Cath - Extremities Exam Extremities Exam: Normal Inspection - Neurological Exam Neurological Exam: Awake Additional comments: Intubated, eyes open, not following commands. - Psychiatric Exam Additional comments: Not following commands. - Skin Skin Exam: Warm Assessment and Plan (1) Respiratory failure Status: Acute (2) Altered mental status Status: Acute (3) HIV (human immunodeficiency virus infection) Status: Acute (4) Fever Status: Acute (5) Pneumonia Status: Acute (6) Severe sepsis Status: Acute (7) Acute renal failure Status: Acute (8) Diabetes mellitus Status: Acute - Assessment and Plan (Free Text) Plan: Continue ventilatory support, continue Zithromax, Solu-Medrol, Proshield, Isentress, Epivir, Micafungin and restof Tx. Critical care time: 32 min.
[2018-06-24] MEDS: Micafungin 100 MG in Sodium Chloride 0.9% 100 ML IVPB SCH (17:15)
[2018-06-24] MEDS: SULFAMETHOXAZOLE IVPB SCH (22:25)
[2018-06-24] MEDS: WATER IVPB SCH (22:25)
[2018-06-24] MEDS: DEXTROSE 5% IVPB SCH (22:25)
[2018-06-24] MEDS: TRIMETHOPRIM IVPB SCH (22:25)
[2018-06-25] MEDS: Insulin Lispro (humaLOG) 100 Units/ml Inj SC SCH ×4 (03:43→13:46)
[2018-06-25 04:06] LABS: ABG ALLEN TEST YES; ARTERIAL BLOOD GAS HCO3 28.1 mmol/L (21-28); ARTERIAL BLOOD GAS HEMOGLOBIN 9.4 g/dL (11.7-17.4); ARTERIAL BLOOD GAS O2 CAPACITY 13.2 mL/dL (16-24); ARTERIAL BLOOD GAS O2 CONTENT 13.2 ML/dL (15-23); ARTERIAL BLOOD GAS O2 SAT 100.3 % (95-98); ARTERIAL BLOOD GAS PCO2 35 mm/Hg (35-45); ARTERIAL BLOOD GAS PO2 146 mm/Hg (80-100); ARTERIAL BLOOD GAS TCO2 28.4 mmol/L (22-28)
[2018-06-25 06:58] LABS: BASO % 0.5 % (0.0-2.0); HEMOGLOBIN 9.5 g/dL (12.0-18.0); LYMPH # 0.1 K/uL (1.0-4.3); LYMPH % 1.5 % (20.0-40.0); MEAN CELL VOLUME 83.3 fl (80.0-94.0); MEAN CORPUSCULAR HEMOGLOBIN 27.7 pg (27.0-31.0); MEAN CORPUSCULAR HGB CONC 33.3 g/dL (33.0-37.0); MEAN PLATELET VOLUME 10.4 fl (7.2-11.7); MONO # 0.1 K/uL (0.0-0.8); MONO % 1.9 % (0.0-10.0); NEUT # 7.2 K/uL (1.8-7.0); NEUT % 96.1 % (50.0-75.0); PLATELET COUNT 191 K/uL (130-400); RBC 3.41 Mil/uL (4.40-5.90); RED CELL DISTRIBUTION WIDTH 16.2 % (11.5-14.5); WHITE BLOOD COUNT 7.5 K/uL (4.8-10.8)
[2018-06-25 07:23] LABS: ALB/GLOB RATIO 0.8 (1.0-2.1); ALBUMIN 2.4 g/dL (3.5-5.0); ALT/SGPT 44 U/L (21-72); AST/SGOT 50 U/L (17-59); BLOOD UREA NITROGEN 48 mg/dl (9-20); CALCIUM 8.7 mg/dL (8.4-10.2); GFR NON-AFRICAN AMERICAN 55
[2018-06-25] MEDS: Micafungin 100 MG in Sodium Chloride 0.9% 100 ML IVPB SCH (08:36)
[2018-06-25] MEDS: MethylPREDNISolone 40 mg Vial IVP SCH ×2 (08:37→21:37)
[2018-06-25] MEDS: SULFAMETHOXAZOLE IVPB SCH ×2 (08:37→21:09)
[2018-06-25] MEDS: WATER IVPB SCH ×2 (08:37→21:09)
[2018-06-25] MEDS: TRIMETHOPRIM IVPB SCH ×2 (08:37→21:09)
[2018-06-25] MEDS: DEXTROSE 5% IVPB SCH ×2 (08:37→21:09)
--- NOTE | 2018-06-25 09:48 | CP.PCM.PN ---
Subjective - Date & Time of Evaluation Date of Evaluation: 06/25/18 Time of Evaluation: 09:47 - Subjective Subjective: Remain on ventilator And NG tube feeding Vital signs noted to be stable Objective - Vital Signs/Intake and Output Vital Signs (last 24 hours): Temp Pulse Resp BP Pulse Ox 98.8 F 71 22 140/79 99 06/25/18 08:00 06/25/18 08:00 06/25/18 08:00 06/25/18 08:00 06/25/18 08:00 Intake and Output: 06/25/18 06/25/18 06:59 18:59 Intake Total 754 Balance 754 - Medications Medications: Current Medications Acetaminophen (Tylenol 325mg Tab) 650 mg PO Q4 PRN PRN Reason: Fever >100.4 F Last Admin: 06/23/18 23:35 Dose: 650 mg Acetaminophen (Tylenol 650 Mg Supp) 650 mg [place] Q6 PRN PRN Reason: Fever >100.4 F Last Admin: 06/20/18 02:30 Dose: 650 mg Azithromycin (Zithromax) 1,200 mg PO QWK [facility]; Protocol Dextrose (Dextrose 50% Inj) 0 ml IV STAT PRN; Protocol PRN Reason: Hypoglycemia Protocol Dextrose (Glutose 15) 0 gm PO ONCE PRN; Protocol PRN Reason: Hypoglycemia Protocol Enoxaparin Sodium (Lovenox) 30 mg SC DAILY [facility]; Protocol Last Admin: 06/17/18 09:20 Dose: 30 mg Famotidine (Pepcid) 20 mg IVP Q12 [facility] Last Admin: 06/25/18 08:38 Dose: 20 mg Glucagon (Glucagen Diagnostic Kit) 0 mg IM STAT PRN; Protocol PRN Reason: Hypoglycemia Protocol Micafungin Sodium 100 mg/ (Sodium Chloride) 100 mls @ 100 mls/hr IVPB DAILY [facility]; Protocol Last Admin: 06/25/18 08:36 Dose: 100 mls/hr Trimethoprim/Sulfamethoxazole (475 mg/ Dextrose) 500 mls @ 250 mls/hr IVPB Q12 [facility] Last Admin: 06/25/18 08:37 Dose: 250 mls/hr Insulin Human Lispro (Humalog) 0 units SC Q6H [facility]; Protocol Last Admin: 06/25/18 03:43 Dose: 2 units Lamivudine (Epivir) 300 mg PO DAILY [facility]; Protocol Last Admin: 06/25/18 09:25 Dose: 300 mg Lorazepam (Ativan) 2 mg IVP Q4 PRN PRN Reason: Agitation Last Admin: 06/25/18 08:37 Dose: 2 mg Methylprednisolone (Solu-Medrol) 40 mg IVP Q12 [facility] Last Admin: 06/25/18 08:37 Dose: 40 mg Raltegravir (Isentress) 400 mg PO BID [facility]; Protocol Last Admin: 06/25/18 08:38 Dose: 400 mg Sevelamer Carbonate (Renvela) 1,600 mg PO TID [facility] Last Admin: 06/25/18 08:38 Dose: 1,600 mg Sodium Bicarbonate (Sodium Bicarbonate Tab) 650 mg PO Q8 [facility] Last Admin: 06/25/18 08:39 Dose: 650 mg Tenofovir Disoproxil Fumarate (Viread) 300 mg PO DAILY [facility]; Protocol Last Admin: 06/25/18 08:39 Dose: 300 mg - Labs Labs: 06/25/18 06:30 06/25/18 06:30 PT 13.1 Seconds (9.8-13.1) 06/18/18 05:47 INR 1.2 06/18/18 05:47 APTT 28.9 Seconds (25.6-37.1) 06/18/18 05:47 - Constitutional Appears: No Acute Distress - Respiratory Exam Respiratory Exam: Rhonchi. absent: Chest Wall Tenderness - Cardiovascular Exam Cardiovascular Exam: absent: Gallop, JVD, Rubs - GI/Abdominal Exam GI & Abdominal Exam: Soft, Normal Bowel Sounds - Extremities Exam Extremities Exam: absent: Calf Tenderness - Back Exam Back Exam: absent: CVA tenderness (L), CVA tenderness (R) - Neurological Exam Neurological Exam: Altered - Skin Skin Exam: absent: Cyanosis Assessment and Plan (1) Acute renal failure Assessment & Plan: Acute renal failure related to HIV or sepsis or combination Sepsis Encephalopathy Respiratory failure Plan Kidney function continued to improve with serum creatinine 1.3 Status post spinal tap 0n 06/18 Continue gentle hydration Kidney function stable for now Patient on multiple antibiotics to keep watching kidney function and the dose of the antibiotics as per GFR As per primary team and intensive care unit Repeat serum phosphorus Status: Acute (2) HIV (human immunodeficiency virus infection) Status: Acute
[2018-06-25 10:17] LABS: BANDS 2 % (0-2); LYMPHOCYTE 2 % (20-50); NEUTROPHIL 96 % (42-75); PLATELET ESTIMATE NORMAL (NORMAL); TOTAL CELLS COUNTED 100
[2018-06-25 10:20] LABS: ANISOCYTOSIS SLIGHT
[2018-06-25 10:22] LABS: BURR CELLS SLIGHT; HYPOCHROMIC MODERATE; OVALOCYTES SLIGHT; SCHISTOCYTES SLIGHT
[2018-06-25 10:24] LABS: TOXIC GRANULATION PRESENT
[2018-06-25 10:44] VITALS: BMI 21.1
--- NOTE | 2018-06-25 12:01 | CP.PCM.PN ---
Subjective - Date & Time of Evaluation Date of Evaluation: 06/25/18 Time of Evaluation: 08:00 - Subjective Subjective: confused vented afebrile nad Objective - Vital Signs/Intake and Output Vital Signs (last 24 hours): Temp Pulse Resp BP Pulse Ox 98.8 F 79 20 114/67 99 06/25/18 08:00 06/25/18 10:00 06/25/18 10:00 06/25/18 10:00 06/25/18 10:00 Intake and Output: 06/25/18 06/25/18 06:59 18:59 Intake Total 754 960 Balance 754 960 - Medications Medications: Current Medications Acetaminophen (Tylenol 325mg Tab) 650 mg PO Q4 PRN PRN Reason: Fever >100.4 F Last Admin: 06/23/18 23:35 Dose: 650 mg Acetaminophen (Tylenol 650 Mg Supp) 650 mg [place] Q6 PRN PRN Reason: Fever >100.4 F Last Admin: 06/20/18 02:30 Dose: 650 mg Azithromycin (Zithromax) 1,200 mg PO QWK [facility]; Protocol Dextrose (Dextrose 50% Inj) 0 ml IV STAT PRN; Protocol PRN Reason: Hypoglycemia Protocol Dextrose (Glutose 15) 0 gm PO ONCE PRN; Protocol PRN Reason: Hypoglycemia Protocol Dimethicone (Proshield Plus Skin Protectant) 1 applic TOP Q8 [facility] Enoxaparin Sodium (Lovenox) 30 mg SC DAILY [facility]; Protocol Last Admin: 06/17/18 09:20 Dose: 30 mg Famotidine (Pepcid) 20 mg IVP Q12 [facility] Last Admin: 06/25/18 08:38 Dose: 20 mg Glucagon (Glucagen Diagnostic Kit) 0 mg IM STAT PRN; Protocol PRN Reason: Hypoglycemia Protocol Micafungin Sodium 100 mg/ (Sodium Chloride) 100 mls @ 100 mls/hr IVPB DAILY [facility]; Protocol Last Admin: 06/25/18 08:36 Dose: 100 mls/hr Trimethoprim/Sulfamethoxazole (475 mg/ Dextrose) 500 mls @ 250 mls/hr IVPB Q12 [facility] Last Admin: 06/25/18 08:37 Dose: 250 mls/hr Insulin Human Lispro (Humalog) 0 units SC 0000,0600,1200,1800 [facility]; Protocol Lamivudine (Epivir) 300 mg PO DAILY [facility]; Protocol Last Admin: 06/25/18 09:25 Dose: 300 mg Lorazepam (Ativan) 2 mg IVP Q4 PRN PRN Reason: Agitation Last Admin: 06/25/18 08:37 Dose: 2 mg Methylprednisolone (Solu-Medrol) 40 mg IVP Q12 [facility] Last Admin: 06/25/18 08:37 Dose: 40 mg Nystatin (Nystop Topical Powder) 1 applic TOP TID [facility] Raltegravir (Isentress) 400 mg PO BID [facility]; Protocol Last Admin: 06/25/18 08:38 Dose: 400 mg Sevelamer Carbonate (Renvela) 1,600 mg PO TID [facility] Last Admin: 06/25/18 08:38 Dose: 1,600 mg Sodium Bicarbonate (Sodium Bicarbonate Tab) 650 mg PO Q8 [facility] Last Admin: 06/25/18 08:39 Dose: 650 mg Tenofovir Disoproxil Fumarate (Viread) 300 mg PO DAILY [facility]; Protocol Last Admin: 06/25/18 08:39 Dose: 300 mg - Labs Labs: 06/25/18 06:30 06/25/18 06:30 PT 13.1 Seconds (9.8-13.1) 06/18/18 05:47 INR 1.2 06/18/18 05:47 APTT 28.9 Seconds (25.6-37.1) 06/18/18 05:47 - Constitutional Appears: Confused, Cachectic, Chronically Ill - Eye Exam Eye Exam: absent: Scleral icterus - ENT Exam ENT Exam: Mucous Membranes Dry - Neck Exam Neck Exam: absent: Lymphadenopathy - Respiratory Exam Respiratory Exam: Decreased Breath Sounds, Prolonged Expiratory Phase, Rhonchi - Cardiovascular Exam Cardiovascular Exam: REGULAR RHYTHM, +S1, +S2 - GI/Abdominal Exam GI & Abdominal Exam: Distended, Soft. absent: Tenderness - Rectal Exam Rectal Exam: Deferred - Exam Exam: NORMAL INSPECTION - Extremities Exam Extremities Exam: absent: Pedal Edema - Back Exam Back Exam: absent: CVA tenderness (L), CVA tenderness (R) - Neurological Exam Neurological Exam: Altered - Psychiatric Exam Psychiatric exam: Depressed Assessment and Plan (1) Acute renal failure Status: Acute (2) Altered mental status Status: Acute (3) Diabetes mellitus Status: Acute (4) HIV (human immunodeficiency virus infection) Status: Acute (5) Pneumonia Status: Acute (6) Encephalopathy Status: Acute - Assessment and Plan (Free Text) Assessment: probable PCP HIV encephalopathy AIDS resp failure pneumonia HUGO improving IV rx to cont added zithromax for MAC prophylaxis cont Bactrim IV for total 21 days then prophylactic dose weaning in progress
--- NOTE | 2018-06-25 12:14 | CP.PCM.PN ---
Subjective - Date & Time of Evaluation Date of Evaluation: 06/25/18 Time of Evaluation: 12:12 - Subjective Subjective: Neuro Follow-Up Note: Mr. Henry was evaluated this afternoon in the ICU. He remains intubated, off sedation. Isolation has been discontinued. Pt is still lethargic and unable to follow commands. Chart reviewed; discussed with primary RN and Dr. Glover. ROS unobtainable due to pt's condition. Objective - Vital Signs/Intake and Output Vital Signs (last 24 hours): Temp Pulse Resp BP Pulse Ox 98.8 F 79 20 114/67 99 06/25/18 08:00 06/25/18 10:00 06/25/18 10:00 06/25/18 10:00 06/25/18 10:00 Intake and Output: 06/25/18 06/25/18 06:59 18:59 Intake Total 754 960 Balance 754 960 - Medications Medications: Current Medications Acetaminophen (Tylenol 325mg Tab) 650 mg PO Q4 PRN PRN Reason: Fever >100.4 F Last Admin: 06/23/18 23:35 Dose: 650 mg Acetaminophen (Tylenol 650 Mg Supp) 650 mg [place] Q6 PRN PRN Reason: Fever >100.4 F Last Admin: 06/20/18 02:30 Dose: 650 mg Azithromycin (Zithromax) 1,200 mg PO QWK [facility]; Protocol Dextrose (Dextrose 50% Inj) 0 ml IV STAT PRN; Protocol PRN Reason: Hypoglycemia Protocol Dextrose (Glutose 15) 0 gm PO ONCE PRN; Protocol PRN Reason: Hypoglycemia Protocol Dimethicone (Proshield Plus Skin Protectant) 1 applic TOP Q8 [facility] Enoxaparin Sodium (Lovenox) 30 mg SC DAILY [facility]; Protocol Last Admin: 06/17/18 09:20 Dose: 30 mg Famotidine (Pepcid) 20 mg IVP Q12 [facility] Last Admin: 06/25/18 08:38 Dose: 20 mg Glucagon (Glucagen Diagnostic Kit) 0 mg IM STAT PRN; Protocol PRN Reason: Hypoglycemia Protocol Micafungin Sodium 100 mg/ (Sodium Chloride) 100 mls @ 100 mls/hr IVPB DAILY [facility]; Protocol Last Admin: 06/25/18 08:36 Dose: 100 mls/hr Trimethoprim/Sulfamethoxazole (475 mg/ Dextrose) 500 mls @ 250 mls/hr IVPB Q12 [facility] Last Admin: 06/25/18 08:37 Dose: 250 mls/hr Insulin Human Lispro (Humalog) 0 units SC 0000,0600,1200,1800 [facility]; Protocol Lamivudine (Epivir) 300 mg PO DAILY [facility]; Protocol Last Admin: 06/25/18 09:25 Dose: 300 mg Lorazepam (Ativan) 2 mg IVP Q4 PRN PRN Reason: Agitation Last Admin: 06/25/18 08:37 Dose: 2 mg Methylprednisolone (Solu-Medrol) 40 mg IVP Q12 [facility] Last Admin: 06/25/18 08:37 Dose: 40 mg Nystatin (Nystop Topical Powder) 1 applic TOP TID [facility] Raltegravir (Isentress) 400 mg PO BID [facility]; Protocol Last Admin: 06/25/18 08:38 Dose: 400 mg Sevelamer Carbonate (Renvela) 1,600 mg PO TID [facility] Last Admin: 06/25/18 08:38 Dose: 1,600 mg Sodium Bicarbonate (Sodium Bicarbonate Tab) 650 mg PO Q8 [facility] Last Admin: 06/25/18 08:39 Dose: 650 mg Tenofovir Disoproxil Fumarate (Viread) 300 mg PO DAILY [facility]; Protocol Last Admin: 06/25/18 08:39 Dose: 300 mg - Labs Labs: 06/25/18 06:30 06/25/18 06:30 PT 13.1 Seconds (9.8-13.1) 06/18/18 05:47 INR 1.2 06/18/18 05:47 APTT 28.9 Seconds (25.6-37.1) 06/18/18 05:47 - Constitutional Appears: Other (lethargic; intubated; off sedation; does not follow commands) - Head Exam Head Exam: NORMAL INSPECTION, NORMOCEPHALIC - Eye Exam Pupil Exam: NORMAL ACCOMODATION Additional comments: Has somewhat of a left gaze preference again today. Does not look to the right when loud noise made on that side. Eyes open spontaneously but not specifically to sternal rub or stimuli Pupils are both reactive to light (approx 2 mm b/l) + corneals, + dolls eyes - ENT Exam ENT Exam: Mucous Membranes Moist Additional comments: intubated - Neck Exam Neck Exam: Normal Inspection - Respiratory Exam Additional comments: intubated - Cardiovascular Exam Cardiovascular Exam: REGULAR RHYTHM - GI/Abdominal Exam GI & Abdominal Exam: Soft Additional comments: ogt in place - Extremities Exam Extremities Exam: absent: Full ROM Additional comments: Generalized edema noted to BUE and BLE has improved. Non-purposeful movements to BUE and BLE noted. Extremities fall immediately to bed after being raised. - Neurological Exam Neurological Exam: absent: Alert, Awake, Oriented x3 Neuro motor strength exam: Left Upper Extremity: 0, Right Upper Extremity: 0, Left Lower Extremity: 0, Right Lower Extremity: 0 Additional comments: Pt remains intubated, off sedation, lethargic. Unable to follow commands. Eyes open spontaneously but not specific eye opening to sternal rub. Left gaze preference noted again today; does not turn head to the right side when loud no ise made. Non-purposeful movements to BUE and BLE noted. Extremities fall immediately to bed after being raised. No tremors; no clonus noted Toes down going b/l. Hyporeflexia noted BLE + pupil response to light (approx 2 mm b/l) + dolls eyes; + corneal reflex, however, sluggish b/l. Unable to assess strength and sensation 2/2 pt's condition. - Psychiatric Exam Additional comments: intubated off sedation, lethargic, does not follow commands - Skin Skin Exam: Normal Color Additional comments: bruise noted today to right wrist/distal forearm Assessment and Plan (1) Altered mental status Assessment & Plan: Imaging reviewed: -MRI Brain (06/23/18): Limited study degraded by motion artifact. No evidence of acute infarct or acute intracranial hemorrhage. No evidence of hydrocephalus mass lesion mass effect or midline shift. -CT Head (06/21/18): No intracranial mass, hemorrhage or evidence of acute infarct. Mild age-appropriate diffuse atrophy -CT Head (06/20/18): No acute intracranial abnormalities. No significant findings to account for the clinical presentation. No significant interval change compared to the prior examination(s). -Non-contrast CT Head (06/11/18): No acute intracranial abnormality. Moderate global parenchymal volume loss. -ECHO (06/12/18): EF 55-60% -Repeat EEG (06/21/18): marked slowing, no seizures. -VEEG (06/15/18): low amplitude, no seizures. -LP was done on 06/18/18---results reviewed; still pending results for CSF VDRL. IgG not done per results. -Continue ICU management and recommendations per ID and other consults. -Continue treatment of underlying cause. -Notify neuro team of any acute changes in pt's condition. Susan Falcon DNP, CHANNELING MACHINE OPERATOR Case discussed with Dr. Low Status: Acute
[2018-06-25 12:58] LABS: MONOCYTE 0 % (0-10)
--- NOTE | 2018-06-25 15:20 | CP.PCM.PN ---
Subjective - Date & Time of Evaluation Date of Evaluation: 06/25/18 Time of Evaluation: 10:00 - Subjective Subjective: F/U Respiratory failure. eyes open, not following commands Objective - Vital Signs/Intake and Output Vital Signs (last 24 hours): Temp Pulse Resp BP Pulse Ox 98.8 F 67 22 107/58 L 99 06/25/18 12:00 06/25/18 14:00 06/25/18 14:00 06/25/18 14:00 06/25/18 14:00 Intake and Output: 06/25/18 06/25/18 06:59 18:59 Intake Total 754 2040 Output Total 700 Balance 754 1340 - Medications Medications: Current Medications Acetaminophen (Tylenol 325mg Tab) 650 mg PO Q4 PRN PRN Reason: Fever >100.4 F Last Admin: 06/23/18 23:35 Dose: 650 mg Acetaminophen (Tylenol 650 Mg Supp) 650 mg [place] Q6 PRN PRN Reason: Fever >100.4 F Last Admin: 06/20/18 02:30 Dose: 650 mg Azithromycin (Zithromax) 1,200 mg PO QWK [facility]; Protocol Dextrose (Dextrose 50% Inj) 0 ml IV STAT PRN; Protocol PRN Reason: Hypoglycemia Protocol Dextrose (Glutose 15) 0 gm PO ONCE PRN; Protocol PRN Reason: Hypoglycemia Protocol Dimethicone (Proshield Plus Skin Protectant) 1 applic TOP Q8 [facility] Enoxaparin Sodium (Lovenox) 30 mg SC DAILY [facility]; Protocol Last Admin: 06/17/18 09:20 Dose: 30 mg Famotidine (Pepcid) 20 mg IVP Q12 [facility] Last Admin: 06/25/18 08:38 Dose: 20 mg Glucagon (Glucagen Diagnostic Kit) 0 mg IM STAT PRN; Protocol PRN Reason: Hypoglycemia Protocol Micafungin Sodium 100 mg/ (Sodium Chloride) 100 mls @ 100 mls/hr IVPB DAILY [facility]; Protocol Last Admin: 06/25/18 08:36 Dose: 100 mls/hr Trimethoprim/Sulfamethoxazole (475 mg/ Dextrose) 500 mls @ 250 mls/hr IVPB Q12 [facility] Last Admin: 06/25/18 08:37 Dose: 250 mls/hr Insulin Human Lispro (Humalog) 0 units SC 0000,0600,1200,1800 [facility]; Protocol Last Admin: 06/25/18 13:46 Dose: 4 units Lamivudine (Epivir) 300 mg PO DAILY [facility]; Protocol Last Admin: 06/25/18 09:25 Dose: 300 mg Lorazepam (Ativan) 2 mg IVP Q4 PRN PRN Reason: Agitation Last Admin: 06/25/18 12:54 Dose: 2 mg Methylprednisolone (Solu-Medrol) 40 mg IVP Q12 [facility] Last Admin: 06/25/18 08:37 Dose: 40 mg Nystatin (Nystop Topical Powder) 1 applic TOP TID [facility] Raltegravir (Isentress) 400 mg PO BID [facility]; Protocol Last Admin: 06/25/18 08:38 Dose: 400 mg Sevelamer Carbonate (Renvela) 1,600 mg PO TID [facility] Last Admin: 06/25/18 12:57 Dose: 1,600 mg Sodium Bicarbonate (Sodium Bicarbonate Tab) 650 mg PO Q8 [facility] Last Admin: 06/25/18 08:39 Dose: 650 mg Tenofovir Disoproxil Fumarate (Viread) 300 mg PO DAILY [facility]; Protocol Last Admin: 06/25/18 08:39 Dose: 300 mg - Labs Labs: 06/25/18 06:30 06/25/18 06:30 PT 13.1 Seconds (9.8-13.1) 06/18/18 05:47 INR 1.2 06/18/18 05:47 APTT 28.9 Seconds (25.6-37.1) 06/18/18 05:47 - Constitutional Appears: Chronically Ill - Head Exam Head Exam: NORMAL INSPECTION - Eye Exam Additional comments: Pupils sluggish reaction to light - ENT Exam Additional comments: Intubated. NG tube - Neck Exam Neck Exam: Normal Inspection - Respiratory Exam Respiratory Exam: Decreased Breath Sounds (at bases), Rhonchi - Cardiovascular Exam Cardiovascular Exam: REGULAR RHYTHM - GI/Abdominal Exam GI & Abdominal Exam: Soft, Normal Bowel Sounds - Exam Additional comments: Yang Cath - Extremities Exam Extremities Exam: Normal Inspection - Neurological Exam Additional comments: Intubated, eyes open, not following commands, limited movements with head and neck - Skin Skin Exam: Warm Assessment and Plan (1) Respiratory failure Status: Acute (2) Altered mental status Status: Acute (3) HIV (human immunodeficiency virus infection) Status: Acute (4) Fever Status: Acute (5) Pneumonia Status: Acute (6) Severe sepsis Status: Acute (7) Acute renal failure Status: Acute (8) Diabetes mellitus Status: Acute - Assessment and Plan (Free Text) Plan: MRI Brain negative, continue Micafungin , Zithromax, Bactrim, HRT, and rest of Tx, ventilatory support, unable to wean Critical care time: 35 min.
[2018-06-25] MEDS: Proshield Plus GEL TOP SCH (16:45)
--- NOTE | 2018-06-25 17:13 | PN ---
DATE: 06/25/2018 CRITICAL CARE PROGRESS NOTE LOCATION: The patient in ICU, bed 423. TIME SPENT: 35 minutes. The patient is seen, evaluated at the bedside. Case was discussed in multidisciplinary ICU rounds this morning. Past medical, surgical, family and social history noted. SUBJECTIVE: A 67-year-old male with hypertension, hyperlipidemia, anxiety disorder, admitted with altered mental status. Noted to be HIV positive. Initial CT head showed no acute abnormality. MRI of the brain shows no acute or chronic infarction and no mass effect. CT chest showed upper lobe heterogenous ground-glass opacity and lower lobe reticular interstitial infiltrate with minimal patchy consolidation involving the lung bases, currently on ceftriaxone and Avelox, Bactrim for presumptive PCP. Video-assisted EEG showed no acute abnormality, no seizure focus. Remains intubated on mechanical ventilation, on AC rate 22, tidal volume 400, FiO2 45%, PEEP 5, observed rate 25, observed tidal volume 380, oxygen saturation 98%, peak airway pressure 22. Sedated on Diprivan drip. On holiday sedation, alert, opens eyes, but unable to follow commands. Attention is not appropriate. PHYSICAL EXAMINATION: VITAL SIGNS: Temperature 98.8, heart rate 79 regular, blood pressure 114/67, mean arterial pressure 82. Intake 2284, output 1500, positive balance 784. Weight 131 pounds. HEAD, EYES, EARS, NOSE, AND THROAT: Pupils are reactive. No nystagmus. Endotracheal tube in place. No secretion noted. CHEST: Bilateral breath sounds. Scattered rhonchi. HEART: Rhythm regular. S1 and S2 normal intensity. No S3 or S4 gallop. No audible murmur. ABDOMEN: Bowel sounds present. Soft. No distention. No tenderness. EXTREMITIES: Dependent edema, trace. Capillary refill less than 2 seconds. NEUROLOGIC: Sedated on Diprivan drip. CURRENT MEDICATIONS: Trimethoprim mg every 12 hours, Viread 300 mg p.o. daily, sodium bicarbonate 650 every 8 hours, Renvela 1600 mg 3 times daily, raltegravir 400 mg twice daily, nystatin topical powder 1 application topically 3 times daily, micafungin 100 mg IV daily, Solu-Medrol 40 mg IV every 12 hours, Ativan 2 mg IV every 4 hours p.r.n. for agitation, Epivir 300 mg p.o. daily, Accu-Chek with regular insulin coverage, Pepcid 20 mg IV every 12 hours, Lovenox 30 mg subcutaneously daily, Proshield Plus Skin Protectant 1 application topically every 8 hours, Zithromax 1200 mg p.o. once a week, Tylenol 650 suppository every 6 hours p.r.n. LABORATORY DATA: WBC 7.5, hemoglobin 9.5, hematocrit 28.4, platelet count 191, neutrophils 96, lymphocytes 1.5, monocytes 1.9. ABG; pH 7.50, pCO2 of 35, pO2 of 146, saturation 100.3 on AC 22/400/45, PEEP 5. SMA-7: Sodium 137, potassium 5, chloride 101, CO2 of 25, blood urea nitrogen 48, creatinine 1.3, random glucose 240 to 268, calcium 8.7. AST 15, ALT 44, alkaline phosphatase 136, total protein 5.2, albumin 2.4. Urinalysis negative. Spinal fluid volume 2 mL, clear, colorless. WBC 0, RBC 7, neutrophils 0, lymphocytes 0, monocytes 0, total glucose 137, total protein 51. Toxoplasma antibody negative, West Nile IgG less than 1.30, West Nile IgM antibody less than 0.9. Sputum, positive for yeast. CSF culture, no growth. Sputum culture, AFB negative. Ova and parasite stool, negative. Chest x-ray, endotracheal tube in place, resolving bilateral infiltrate. IMPRESSION AND PLAN: 1. Neurologic: Resolving septic toxic metabolic encephalopathy. CT head negative. MRI with no acute or subacute infarct. EEG reported to be negative, official report pending. Currently sedated on Diprivan drip, being weaned off, spontaneous breathing trial in progress. 2. Pulmonary: Hypoxic respiratory failure with wide AA gradient. Chest x-ray shows improvement of the pulmonary vascular congestion, being treated for suspected pneumocystis pneumonia. Continue Bactrim and steroid, day 13. Also, on Avelox and Rocephin. 3. Cardiac: Normotensive. No cardiac arrhythmia on telemetry. 4. Hematology: Leukocytosis, resolved. Hemoglobin and hematocrit remain stable. Normal platelet count. 5. Infectious Disease: HIV positive, on HAART medications. Suspected pneumocystis pneumonia, currently on Bactrim. 6. Gastrointestinal: Liver enzymes within normal limits. Continue feeding through the NG tube. Keep head of bed 30 degrees up. Yang in place. Continue DVT prophylaxis. Alvaro Ken MD [facility] # [id number]
[2018-06-26] MEDS: Insulin Lispro (humaLOG) 100 Units/ml Inj SC SCH ×3 (00:10→12:14)
[2018-06-26] MEDS: Proshield Plus GEL TOP SCH ×3 (01:18→16:24)
[2018-06-26 05:20] LABS: ABG ALLEN TEST YES; ARTERIAL BLOOD GAS HCO3 25.8 mmol/L (21-28); ARTERIAL BLOOD GAS HEMOGLOBIN 11.4 g/dL (11.7-17.4); ARTERIAL BLOOD GAS O2 CAPACITY 15.9 mL/dL (16-24); ARTERIAL BLOOD GAS O2 CONTENT 15.9 ML/dL (15-23); ARTERIAL BLOOD GAS O2 SAT 100.3 % (95-98); ARTERIAL BLOOD GAS PCO2 58 mm/Hg (35-45); ARTERIAL BLOOD GAS PO2 178 mm/Hg (80-100); ARTERIAL BLOOD GAS TCO2 30.3 mmol/L (22-28)
[2018-06-26] MEDS ORDERED: Propofol 10 mg/ml 1,000 MG/100 ML VIAL ONE (05:47)
[2018-06-26] MEDS: Propofol 10 mg/ml 1,000 MG/100 ML VIAL IV SCH ×2 (06:00→23:54)
[2018-06-26 06:26] LABS: BASO % 0.1 % (0.0-2.0); HEMOGLOBIN 10.6 g/dL (12.0-18.0); LYMPH # 0.1 K/uL (1.0-4.3); LYMPH % 1.5 % (20.0-40.0); MEAN CELL VOLUME 85.1 fl (80.0-94.0); MEAN CORPUSCULAR HEMOGLOBIN 27.6 pg (27.0-31.0); MEAN CORPUSCULAR HGB CONC 32.4 g/dL (33.0-37.0); MEAN PLATELET VOLUME 10.3 fl (7.2-11.7); MONO # 0.2 K/uL (0.0-0.8); MONO % 2.5 % (0.0-10.0); NEUT # 9.4 K/uL (1.8-7.0); NEUT % 95.9 % (50.0-75.0); PLATELET COUNT 195 K/uL (130-400); RBC 3.86 Mil/uL (4.40-5.90); RED CELL DISTRIBUTION WIDTH 16.2 % (11.5-14.5); WHITE BLOOD COUNT 9.8 K/uL (4.8-10.8)
[2018-06-26 06:51] LABS: ALB/GLOB RATIO 0.8 (1.0-2.1); ALBUMIN 2.8 g/dL (3.5-5.0); ALT/SGPT 58 U/L (21-72); AST/SGOT 49 U/L (17-59); BLOOD UREA NITROGEN 46 mg/dl (9-20); CALCIUM 9.1 mg/dL (8.4-10.2); GFR NON-AFRICAN AMERICAN 55
[2018-06-26] MEDS: MethylPREDNISolone 40 mg Vial IVP SCH ×2 (08:14→20:19)
[2018-06-26] MEDS: Micafungin 100 MG in Sodium Chloride 0.9% 100 ML IVPB SCH (08:15)
--- NOTE | 2018-06-26 09:14 | CP.CCUPN ---
CCU Subjective - Physician Review Subjective (Free Text): 06/26/18 09:13 The patient was Seen and examined by me at the bedside, Medical records reviewed and Management issues were discussed and formulated with the house staff. Events reviewed Mr Henry is a 67 Years old Male with unknown PMHx on admission who arrived to Emergency department on 06/11 via EMS after wellness check demonstrated unsuitable living conditions, with patient confused and unkempt. In ED, patient poor historian, but notes dizziness and denies falls, trauma, focal weakness or pain Given oral thrush on admission, rapid HIV was done in the ER and was positive EKG: Sinus Tachycardia. Head CT: No acute intracranial abnormality, mod volume loss. He was admitted to the Telemetry with diagnosis acute renal failure, hypokalemia, azotemia with delirium Patient was transferred to ICU on 06/13 after CHIEF RESOURCE OFFICER was called on the floor for Hypotension most likely secondary to volume depletion and severe dehydration Patient was admitted to ICU with diagnosis HUGO most likely prerenal, Altered mental status, severe sepsis from Pneumonia possibly PCP All in the sitting of newly diagnosed HIV (untreated with very very low CD4 count) He was awake, but confused, intermittently follows some commands ICU course noted for worsening mental status, he was found to Combative, Inappropriate, Restless Patient was intubated 06/15/18 for worsening mental status and hypoxemia 028/11, Patient placed on Right Lateral Decubitius, and spinal tap was done by anesthesia, He tolerated the procedure well Consent was obtained over the phone from appointed uncle (by the patient mother in [place]) The CSF fluid was sent for chemistry, cell count, with mild virus, AFB, cryptococcal serology, glucose, protein and bacterial culture Opening pressure 32, Fluid Clear CSF renee ink and cultures negative Subsequently he was started on HAART Bronchoscopy was postponed due to thew need for need negative pressure isolation Initially was empirically covered with meningitis, All spinal Tap results negative so far and Patient was taken off droplet isolation Three sputum for AFB was sent, all negative and he was taken off airborne isolation PPD was negative likely in the setting of severe immune suppression Currently orally intubated and sedated Vent setting PRBC 400/22/50%- PEEP of 5 ABG this morning 7.30/58/178/30/100% Will decrease Fio2 to 40% and increase tidal volume to 450 On propofol drip with RAAS score of -2, Adding PRN Morphine Hemodynamically improved No Vasopressors Comfortable, NAD Afebrile for the last 48H, NSR on the monitor Last 24H I&O 3504/1500 This morning labs revealed no Leucocytosis, Stable H/H 10.6/32.9, improving renal function BUN/Cr down to 46/1.3 Patient is currently been empirically covered with Micafungin, Azithromycin (Zithromax) also on IV Bactrim to cover for PCP pneumonia CCU Objective - Vital Signs / Intake & Output Vital Signs (Last 4 hours): Vital Signs Temp Pulse Resp BP Pulse Ox 06/26/18 08:00 99.5 F 105 H 22 109/69 99 06/26/18 06:00 99 H 22 109/69 99 Intake and Output (Last 8hrs): Intake & Output 06/25/18 06/26/18 06/26/18 22:59 06:59 14:59 Intake Total 728 736 0 Output Total 800 Balance -72 736 0 Weight 131 lb Intake: IV 8 16 0 Tube Feeding 320 320 Free Water Flush 400 400 Output: Urine 800 Urethral (Yang) 800 - Physical Exam Head: Positive for: Atraumatic, Normocephalic Pupils: Positive for: PERRL Extroacular Muscles: Positive for: EOMI Conjunctiva: Positive for: Normal. Negative for: Injected, Icteric Mouth: Positive for: Moist Mucous Membranes. Negative for: Dry, Drooling Pharnyx: Positive for: Normal Nose (Internal): Positive for: Normal Inspection Neck: Positive for: Normal Range of Motion, Trachea Midline. Negative for: Meningeal Signs, MIDLINE TENDERNESS, Paraspinal Tenderness, JVD, Lymphadenopathy, Bruit, Other Respiratory/Chest: Positive for: Good Air Exchange, Decreased Breath Sounds, Rales, Rhonchi. Negative for: Respiratory Distress, Accessory Muscle Use, Tachypneic, Tender to Palpation Cardiovascular: Positive for: Regular Rate and Rhythm, Normal S1, S2, Peripheal Pulses Present. Negative for: Murmurs, Irregular Rhythm, Tachycardic, Bradycardic Abdomen: Positive for: Normal Bowel Sounds. Negative for: Tenderness, Distention Upper Extremity: Positive for: Normal Inspection Lower Extremity: Positive for: Normal Inspection Neurological: Positive for: Motor Func Grossly Intact. Negative for: GCS=15 Psychiatric: Positive for: Other (orally intubated). Negative for: Alert, Oriented x 3 - Medications Active Medications: Active Medications Generic Name Dose Route Start Last Admin Trade Name Freq PRN Reason Stop Dose Admin Acetaminophen 650 mg 06/13/18 05:17 06/25/18 21:40 Tylenol 325mg Tab PO 650 mg Q4 PRN Administration Fever >100.4 F Acetaminophen 650 mg 06/20/18 02:30 06/20/18 02:30 Tylenol 650 Mg Supp MO 650 mg Q6 PRN Administration Fever >100.4 F Azithromycin 1,200 mg 06/24/18 14:00 Zithromax PO QWK RIMA Protocol Dextrose 0 ml 06/11/18 22:54 Dextrose 50% Inj IV STAT PRN Hypoglycemia Protocol Protocol Dextrose 0 gm 06/11/18 22:54 Glutose 15 PO ONCE PRN Hypoglycemia Protocol Protocol Dimethicone 1 applic 06/25/18 17:00 06/26/18 08:16 Proshield Plus Skin Protectant TOP 1 applic Q8 RIMA Administration Enoxaparin Sodium 30 mg 06/16/18 13:30 06/17/18 09:20 Lovenox SC 30 mg DAILY RIMA Administration Protocol Famotidine 20 mg 06/22/18 10:45 06/25/18 21:37 Pepcid IVP 20 mg Q12 RIMA Administration Glucagon 0 mg 06/11/18 22:54 Glucagen Diagnostic Kit IM STAT PRN Hypoglycemia Protocol Protocol Micafungin Sodium 100 mg/ 100 mls @ 100 mls/hr 06/24/18 14:00 06/26/18 08:15 Sodium Chloride IVPB 100 mls/hr DAILY RIMA Administration Protocol Trimethoprim/Sulfamethoxazole 500 mls @ 250 mls/hr 06/24/18 22:30 06/25/18 21:09 475 mg/ Dextrose IVPB 250 mls/hr Q12 RIMA Administration Propofol 1,000 mg in 100 mls @ 1.783 mls/hr 06/26/18 06:00 06/26/18 08:00 Diprivan IV 06/27/18 05:52 7.5 mcg/kg/min .Q24H RIMA 2.674 mls/hr Titration Protocol 5 MCG/KG/MIN Insulin Human Lispro 0 units 06/25/18 12:00 06/26/18 05:23 Humalog SC 2 units 0000,0600,1200,1800 RIMA Administration Protocol Lamivudine 300 mg 06/25/18 09:00 06/26/18 08:14 Epivir PO 300 mg DAILY RIMA Administration Protocol Methylprednisolone 40 mg 06/13/18 21:00 06/26/18 08:14 Solu-Medrol IVP 40 mg Q12 RIMA Administration Nystatin 1 applic 06/25/18 13:00 06/26/18 08:16 Nystop Topical Powder TOP 1 applic TID RIMA Administration Raltegravir 400 mg 06/19/18 09:00 06/26/18 08:15 Isentress PO 400 mg BID RIMA Administration Protocol Sevelamer Carbonate 1,600 mg 06/18/18 17:00 06/26/18 08:14 Renvela PO 1,600 mg TID RIMA Administration Sodium Bicarbonate 650 mg 06/15/18 17:00 06/26/18 08:14 Sodium Bicarbonate Tab PO 650 mg Q8 RIMA Administration Tenofovir Disoproxil Fumarate 300 mg 06/25/18 09:00 06/26/18 08:14 Viread PO 300 mg DAILY RIMA Administration Protocol - Patient Studies Lab Studies: Microbiology Studies 06/22/18 00:24 Ova and Parasite Concentrate Exam - Final Bowel Lab Studies 06/26/18 06/26/18 06/26/18 Range/Units 06:00 06:00 05:22 WBC 9.8 (4.8-10.8) K/uL RBC 3.86 L (4.40-5.90) Mil/uL Hgb 10.6 L (12.0-18.0) g/dL Hct 32.9 L (35.0-51.0) % MCV 85.1 (80.0-94.0) fl MCH 27.6 (27.0-31.0) pg MCHC 32.4 L (33.0-37.0) g/dL RDW 16.2 H (11.5-14.5) % Plt Count 195 (130-400) K/uL MPV 10.3 (7.2-11.7) fl Neut % (Auto) 95.9 H (50.0-75.0) % Lymph % (Auto) 1.5 L (20.0-40.0) % [place] % (Auto) 2.5 (0.0-10.0) % Eos % (Auto) 0.0 (0.0-4.0) % Baso % (Auto) 0.1 (0.0-2.0) % Neut # (Auto) 9.4 H (1.8-7.0) K/uL Lymph # (Auto) 0.1 L (1.0-4.3) K/uL [place] # (Auto) 0.2 (0.0-0.8) K/uL Eos # (Auto) 0.0 (0.0-0.7) K/uL Baso # (Auto) 0.0 (0.0-0.2) K/uL Neutrophils % (Manual) (42-75) % Band Neutrophils % (0-2) % Lymphocytes % (Manual) (20-50) % Monocytes % (Manual) (0-10) % Toxic Granulation Platelet Estimate (NORMAL) Hypochromasia (manual) Anisocytosis (manual) Ovalocytes [place] Cells Schistocytes pCO2 (35-45) mm/Hg pO2 (80-100) mm/Hg HCO3 (21-28) mmol/L ABG pH (7.35-7.45) ABG Total CO2 (22-28) mmol/L ABG O2 Saturation (95-98) % ABG O2 Content (15-23) ML/dL ABG Base Excess (-2.0-3.0) mmol/L ABG Hemoglobin (11.7-17.4) g/dL ABG Carboxyhemoglobin (0.5-1.5) % POC ABG HHb (Measured) (0.0-5.0) % ABG Methemoglobin (0.0-3.0) % ABG O2 Capacity (16-24) mL/dL Bright Test A-a O2 Difference mm/Hg Hgb O2 Saturation (95.0-98.0) % Mechanical Rate FiO2 % Tidal Volume PEEP Sodium 137 (132-148) mmol/l Potassium 5.0 (3.6-5.0) MMOL/L Chloride 98 (98-107) mmol/L Carbon Dioxide 29 (22-30) mmol/L Anion Gap 15 (10-20) BUN 46 H (9-20) mg/dl Creatinine 1.3 (0.8-1.5) mg/dl Est GFR ( Amer) > 60 Est GFR (Non-Af Amer) 55 POC Glucose (mg/dL) 241 H (65-110) mg/dL Random Glucose 221 H (75-110) mg/dL Calcium 9.1 (8.4-10.2) mg/dL Total Bilirubin 0.3 (0.2-1.3) mg/dl AST 49 (17-59) U/L ALT 58 (21-72) U/L Alkaline Phosphatase 196 H D (38-126) U/L Total Protein 6.1 L (6.3-8.2) G/DL Albumin 2.8 L (3.5-5.0) g/dL Globulin 3.3 (2.2-3.9) gm/dL Albumin/Globulin Ratio 0.8 L (1.0-2.1) 06/26/18 06/25/18 06/25/18 Range/Units 04:52 23:37 21:03 WBC (4.8-10.8) K/uL RBC (4.40-5.90) Mil/uL Hgb (12.0-18.0) g/dL Hct (35.0-51.0) % MCV (80.0-94.0) fl MCH (27.0-31.0) pg MCHC (33.0-37.0) g/dL RDW (11.5-14.5) % Plt Count (130-400) K/uL MPV (7.2-11.7) fl Neut % (Auto) (50.0-75.0) % Lymph % (Auto) (20.0-40.0) % [place] % (Auto) (0.0-10.0) % Eos % (Auto) (0.0-4.0) % Baso % (Auto) (0.0-2.0) % Neut # (Auto) (1.8-7.0) K/uL Lymph # (Auto) (1.0-4.3) K/uL [place] # (Auto) (0.0-0.8) K/uL Eos # (Auto) (0.0-0.7) K/uL Baso # (Auto) (0.0-0.2) K/uL Neutrophils % (Manual) (42-75) % Band Neutrophils % (0-2) % Lymphocytes % (Manual) (20-50) % Monocytes % (Manual) (0-10) % Toxic Granulation Platelet Estimate (NORMAL) Hypochromasia (manual) Anisocytosis (manual) Ovalocytes Rasheed Cells Schistocytes pCO2 58 H (35-45) mm/Hg pO2 178 H (80-100) mm/Hg HCO3 25.8 (21-28) mmol/L ABG pH 7.30 L (7.35-7.45) ABG Total CO2 30.3 H (22-28) mmol/L ABG O2 Saturation 100.3 H (95-98) % ABG O2 Content 15.9 (15-23) ML/dL ABG Base Excess 1.1 (-2.0-3.0) mmol/L ABG Hemoglobin 11.4 L (11.7-17.4) g/dL ABG Carboxyhemoglobin 1.4 (0.5-1.5) % POC ABG HHb (Measured) -0.3 L (0.0-5.0) % ABG Methemoglobin 2.1 (0.0-3.0) % ABG O2 Capacity 15.9 L (16-24) mL/dL Bright Test Yes A-a O2 Difference 35.0 mm/Hg Hgb O2 Saturation 96.8 (95.0-98.0) % Mechanical Rate 22 FiO2 40.0 % Tidal Volume 400 PEEP 5 Sodium (132-148) mmol/l Potassium (3.6-5.0) MMOL/L Chloride (98-107) mmol/L Carbon Dioxide (22-30) mmol/L Anion Gap (10-20) BUN (9-20) mg/dl Creatinine (0.8-1.5) mg/dl Est GFR ( Amer) Est GFR (Non-Af Amer) POC Glucose (mg/dL) 287 H 167 H (65-110) mg/dL Random Glucose (75-110) mg/dL Calcium (8.4-10.2) mg/dL Total Bilirubin (0.2-1.3) mg/dl AST (17-59) U/L ALT (21-72) U/L Alkaline Phosphatase (38-126) U/L Total Protein (6.3-8.2) G/DL Albumin (3.5-5.0) g/dL Globulin (2.2-3.9) gm/dL Albumin/Globulin Ratio (1.0-2.1) 06/25/18 06/25/18 06/25/18 Range/Units 16:10 11:05 06:30 WBC (4.8-10.8) K/uL RBC (4.40-5.90) Mil/uL Hgb (12.0-18.0) g/dL Hct (35.0-51.0) % MCV (80.0-94.0) fl MCH (27.0-31.0) pg MCHC (33.0-37.0) g/dL RDW (11.5-14.5) % Plt Count (130-400) K/uL MPV (7.2-11.7) fl Neut % (Auto) (50.0-75.0) % Lymph % (Auto) (20.0-40.0) % [place] % (Auto) (0.0-10.0) % Eos % (Auto) (0.0-4.0) % Baso % (Auto) (0.0-2.0) % Neut # (Auto) (1.8-7.0) K/uL Lymph # (Auto) (1.0-4.3) K/uL [place] # (Auto) (0.0-0.8) K/uL Eos # (Auto) (0.0-0.7) K/uL Baso # (Auto) (0.0-0.2) K/uL Neutrophils % (Manual) 96 H (42-75) % Band Neutrophils % 2 (0-2) % Lymphocytes % (Manual) 2 L (20-50) % Monocytes % (Manual) 0 (0-10) % Toxic Granulation Present Platelet Estimate Normal (NORMAL) Hypochromasia (manual) Moderate Anisocytosis (manual) Slight Ovalocytes Slight Rasheed Cells Slight Schistocytes Slight pCO2 (35-45) mm/Hg pO2 (80-100) mm/Hg HCO3 (21-28) mmol/L ABG pH (7.35-7.45) ABG Total CO2 (22-28) mmol/L ABG O2 Saturation (95-98) % ABG O2 Content (15-23) ML/dL ABG Base Excess (-2.0-3.0) mmol/L ABG Hemoglobin (11.7-17.4) g/dL ABG Carboxyhemoglobin (0.5-1.5) % POC ABG HHb (Measured) (0.0-5.0) % ABG Methemoglobin (0.0-3.0) % ABG O2 Capacity (16-24) mL/dL Bright Test A-a O2 Difference mm/Hg Hgb O2 Saturation (95.0-98.0) % Mechanical Rate FiO2 % Tidal Volume PEEP Sodium (132-148) mmol/l Potassium (3.6-5.0) MMOL/L Chloride (98-107) mmol/L Carbon Dioxide (22-30) mmol/L Anion Gap (10-20) BUN (9-20) mg/dl Creatinine (0.8-1.5) mg/dl Est GFR ( Amer) Est GFR (Non-Af Amer) POC Glucose (mg/dL) 197 H 309 H (65-110) mg/dL Random Glucose (75-110) mg/dL Calcium (8.4-10.2) mg/dL Total Bilirubin (0.2-1.3) mg/dl AST (17-59) U/L ALT (21-72) U/L Alkaline Phosphatase (38-126) U/L Total Protein (6.3-8.2) G/DL Albumin (3.5-5.0) g/dL Globulin (2.2-3.9) gm/dL Albumin/Globulin Ratio (1.0-2.1) Laboratory Results - last 24 hr 06/25/18 06/25/18 06/25/18 06:30 11:05 16:10 WBC RBC Hgb Hct MCV MCH MCHC RDW Plt Count MPV Neut % (Auto) Lymph % (Auto) [place] % (Auto) Eos % (Auto) Baso % (Auto) Neut # (Auto) Lymph # (Auto) [place] # (Auto) Eos # (Auto) Baso # (Auto) Neutrophils % (Manual) 96 H Band Neutrophils % 2 Lymphocytes % (Manual) 2 L Monocytes % (Manual) 0 Toxic Granulation Present Platelet Estimate Normal Hypochromasia (manual) Moderate Anisocytosis (manual) Slight Ovalocytes Slight Rasheed Cells Slight Schistocytes Slight pCO2 pO2 HCO3 ABG pH ABG Total CO2 ABG O2 Saturation ABG O2 Content ABG Base Excess ABG Hemoglobin ABG Carboxyhemoglobin POC ABG HHb (Measured) ABG Methemoglobin ABG O2 Capacity Bright Test A-a O2 Difference Hgb O2 Saturation Mechanical Rate FiO2 Tidal Volume PEEP Sodium Potassium Chloride Carbon Dioxide Anion Gap BUN Creatinine Est GFR ( Amer) Est GFR (Non-Af Amer) POC Glucose (mg/dL) 309 H 197 H Random Glucose Calcium Total Bilirubin AST ALT Alkaline Phosphatase Total Protein Albumin Globulin Albumin/Globulin Ratio 06/25/18 06/25/18 06/26/18 21:03 23:37 04:52 WBC RBC Hgb Hct MCV MCH MCHC RDW Plt Count MPV Neut % (Auto) Lymph % (Auto) [place] % (Auto) Eos % (Auto) Baso % (Auto) Neut # (Auto) Lymph # (Auto) [place] # (Auto) Eos # (Auto) Baso # (Auto) Neutrophils % (Manual) Band Neutrophils % Lymphocytes % (Manual) Monocytes % (Manual) Toxic Granulation Platelet Estimate Hypochromasia (manual) Anisocytosis (manual) Ovalocytes Rasheed Cells Schistocytes pCO2 58 H pO2 178 H HCO3 25.8 ABG pH 7.30 L ABG Total CO2 30.3 H ABG O2 Saturation 100.3 H ABG O2 Content 15.9 ABG Base Excess 1.1 ABG Hemoglobin 11.4 L ABG Carboxyhemoglobin 1.4 POC ABG HHb (Measured) -0.3 L ABG Methemoglobin 2.1 ABG O2 Capacity 15.9 L Bright Test Yes A-a O2 Difference 35.0 Hgb O2 Saturation 96.8 Mechanical Rate 22 FiO2 40.0 Tidal Volume 400 PEEP 5 Sodium Potassium Chloride Carbon Dioxide Anion Gap BUN Creatinine Est GFR ( Amer) Est GFR (Non-Af Amer) POC Glucose (mg/dL) 167 H 287 H Random Glucose Calcium Total Bilirubin AST ALT Alkaline Phosphatase Total Protein Albumin Globulin Albumin/Globulin Ratio 06/26/18 06/26/18 06/26/18 05:22 06:00 06:00 WBC 9.8 RBC 3.86 L Hgb 10.6 L Hct 32.9 L MCV 85.1 MCH 27.6 MCHC 32.4 L RDW 16.2 H Plt Count 195 MPV 10.3 Neut % (Auto) 95.9 H Lymph % (Auto) 1.5 L [place] % (Auto) 2.5 Eos % (Auto) 0.0 Baso % (Auto) 0.1 Neut # (Auto) 9.4 H Lymph # (Auto) 0.1 L [place] # (Auto) 0.2 Eos # (Auto) 0.0 Baso # (Auto) 0.0 Neutrophils % (Manual) Band Neutrophils % Lymphocytes % (Manual) Monocytes % (Manual) Toxic Granulation Platelet Estimate Hypochromasia (manual) Anisocytosis (manual) Ovalocytes [place] Cells Schistocytes pCO2 pO2 HCO3 ABG pH ABG Total CO2 ABG O2 Saturation ABG O2 Content ABG Base Excess ABG Hemoglobin ABG Carboxyhemoglobin POC ABG HHb (Measured) ABG Methemoglobin ABG O2 Capacity Bright Test A-a O2 Difference Hgb O2 Saturation Mechanical Rate FiO2 Tidal Volume PEEP Sodium 137 Potassium 5.0 Chloride 98 Carbon Dioxide 29 Anion Gap 15 BUN 46 H Creatinine 1.3 Est GFR ( Amer) > 60 Est GFR (Non-Af Amer) 55 POC Glucose (mg/dL) 241 H Random Glucose 221 H Calcium 9.1 Total Bilirubin 0.3 AST 49 ALT 58 Alkaline Phosphatase 196 H D Total Protein 6.1 L Albumin 2.8 L Globulin 3.3 Albumin/Globulin Ratio 0.8 L Fingerstick Blood Sugar Results: 241 Critical Care Progress Note - Ventilator Checklist Head of Bed 30 Degrees: Yes Daily Sedation Vacation: Yes Daily Assessment of Readiness to Wean: Yes Daily Spontaneous Breathing Trial: Yes PUD Prophalyxis: Yes DVT Prophylaxis: Yes Oral Care with Chlorhexidine Gluconate {CHG}: Yes - Extremities/Vascular Does the Patient have a Central Venous Catheter?: Yes Does the Patient need a Central Venous Catheter?: Yes Does the Patient have a Yang Catheter?: Yes Does the Patient need a Yang Catheter?: Yes - Prophylaxis GI Prophylaxis GI: Pepsid - Prophylaxis DVT Prophylaxis DVT: Lovenox - Nutrition Nutrition: Nutrition Category Date Time Status NPO Diet [DIET] Diets 06/19/18 Dinner Active Assessment/Plan (1) Acute respiratory failure Current Visit: Yes Status: Acute Comment: Patient was intubated for worsening mental status, airway protection and also for hypoxemia secondary to bilateral pneumonia presumptively PCP Chest x-ray ABGs this morning was reviewed Continue to assess for sedation vacation and vent weaning when patient more stable and improve oxygenation and ventilation also mental status needs to improve before consider extubation Bronchoscopy on hold Continue with antibiotic coverage Aggressive pulmonary toileting chest PT and suctioning Sputum for AFB x 3 negative (2) Severe sepsis Current Visit: Yes Status: Acute Priority: High Comment: BP improved, no vasopressors, Continue current broad spectrum antibiotics Presumptive treatment for meningitis with Moxifloxacin, Ceftriaxone acyclovir for herpes encephalitis and bactrim for PCP ID consult (3) Acute renal failure Current Visit: Yes Status: Acute Priority: High Comment: Acute renal injury due to circulatory failure and septic shock Hypotensive improved, No vasopressors Morning Labs showing improved renal functions IVF hydration Monitor Input/Output (4) Altered mental status Current Visit: Yes Status: Acute Priority: High Comment: Toxic metabolic Encephalopathy Intially Suspect central nervous system infection, Started on imperic coverage Spinal tap was done, results negative so far Monitor for neurological improvement Head CT scan x2 negative for bleed, mass or acute pathology EEG Abnormal, non spesific findings, no seizures MRI pending (5) Pneumonia Current Visit: Yes Status: Acute Priority: High Comment: Multifocal pneumonia in immune compromised AIDS patient. PCP pneumonia certainly needs to be high consideration especially with hypoxemia and Radiographic findings in addition pt could have strep pneumonia pneumonia As per sepsis, plus Solu-Medrol 40 mg IVP Q12 and bactrim presumptive treatment for PCP. NPO after midnight, Bronch in AM Current Antibiotics Moxifloxacin HCl (Avelox Iv 400mg/250ml Ns) 400 mg in 250 mls @ 250 mls/hr IVPB DAILY Trimethoprim/Sulfamethoxazole (200 mg/ Dextrose) 250 mls @ 125 mls/hr IVPB Q12 Ceftriaxone Sodium 2 gm/ (Sodium Chloride) 100 mls @ 100 mls/hr IVPB Q12 (6) HIV (human immunodeficiency virus infection) Current Visit: Yes Status: Acute Priority: High Comment: HAART medcations initiated after cryptococcal meningitis was ruled out - Assessment and Plan (Free Text) Assessment: # HOB maintained at 30 degrees. # GI/DVT PPX # Stress Ulcer prophylaxis with Pepcid # DVT prophylaxis with SCD, Lovenox # Soft wrist restraints maintained for safety. # Code Status: Full code Total critical care time 54 minutes
[2018-06-26] MEDS ORDERED: Acetaminophen 650mg/20.3ml solution UD NG PRN (09:21)
[2018-06-26] MEDS: TRIMETHOPRIM IVPB SCH ×2 (09:33→20:18)
[2018-06-26] MEDS: SULFAMETHOXAZOLE IVPB SCH ×2 (09:33→20:18)
[2018-06-26] MEDS: DEXTROSE 5% IVPB SCH ×2 (09:33→20:18)
[2018-06-26] MEDS: WATER IVPB SCH ×2 (09:33→20:18)
--- NOTE | 2018-06-26 10:27 | CP.PCM.PN ---
Subjective - Date & Time of Evaluation Date of Evaluation: 06/26/18 Time of Evaluation: 09:00 - Subjective Subjective: intubated/sedated will likely need trach/PEG CXR worse no new cultures Objective - Vital Signs/Intake and Output Vital Signs (last 24 hours): Temp Pulse Resp BP Pulse Ox 99.5 F 105 H 22 109/69 99 06/26/18 08:00 06/26/18 08:00 06/26/18 08:00 06/26/18 08:00 06/26/18 08:00 Intake and Output: 06/26/18 06/26/18 06:59 18:59 Intake Total 1104 280 Balance 1104 280 - Medications Medications: Current Medications Acetaminophen (Tylenol 325mg Tab) 650 mg PO Q4 PRN PRN Reason: Fever >100.4 F Last Admin: 06/25/18 21:40 Dose: 650 mg Acetaminophen (Tylenol 650 Mg Supp) 650 mg TX Q6 PRN PRN Reason: Fever >100.4 F Last Admin: 06/20/18 02:30 Dose: 650 mg Acetaminophen (Tylenol 650mg/20.3ml Solution Ud) 650 mg NG Q4 PRN PRN Reason: fever 100.4 or above Azithromycin (Zithromax) 1,200 mg PO QWK RIMA; Protocol Dextrose (Dextrose 50% Inj) 0 ml IV STAT PRN; Protocol PRN Reason: Hypoglycemia Protocol Dextrose (Glutose 15) 0 gm PO ONCE PRN; Protocol PRN Reason: Hypoglycemia Protocol Dimethicone (Proshield Plus Skin Protectant) 1 applic TOP Q8 RIMA Last Admin: 06/26/18 08:16 Dose: 1 applic Enoxaparin Sodium (Lovenox) 30 mg SC DAILY RIMA; Protocol Last Admin: 06/17/18 09:20 Dose: 30 mg Famotidine (Pepcid) 20 mg IVP Q12 RIMA Last Admin: 06/26/18 09:41 Dose: 20 mg Glucagon (Glucagen Diagnostic Kit) 0 mg IM STAT PRN; Protocol PRN Reason: Hypoglycemia Protocol Micafungin Sodium 100 mg/ (Sodium Chloride) 100 mls @ 100 mls/hr IVPB DAILY RIMA; Protocol Last Admin: 06/26/18 08:15 Dose: 100 mls/hr Trimethoprim/Sulfamethoxazole (475 mg/ Dextrose) 500 mls @ 250 mls/hr IVPB Q12 RIMA Last Admin: 06/26/18 09:33 Dose: 250 mls/hr Propofol (Diprivan) 1,000 mg in 100 mls @ 1.783 mls/hr IV .Q24H RIMA; Protocol Stop: 06/27/18 05:52 Last Titration: 06/26/18 10:13 Dose: 5 mcg/kg/min, 1.783 mls/hr Insulin Human Lispro (Humalog) 0 units SC 0000,0600,1200,1800 RIMA; Protocol Last Admin: 06/26/18 05:23 Dose: 2 units Lamivudine (Epivir) 300 mg PO DAILY [facility]; Protocol Last Admin: 06/26/18 08:14 Dose: 300 mg Methylprednisolone (Solu-Medrol) 40 mg IVP Q12 [facility] Last Admin: 06/26/18 08:14 Dose: 40 mg Morphine Sulfate (Morphine) 2 mg IVP Q6 PRN PRN Reason: Pain, moderate (4-7) Last Admin: 06/26/18 09:41 Dose: 2 mg Nystatin (Nystop Topical Powder) 1 applic TOP TID [facility] Last Admin: 06/26/18 08:16 Dose: 1 applic Raltegravir (Isentress) 400 mg PO BID [facility]; Protocol Last Admin: 06/26/18 08:15 Dose: 400 mg Sevelamer Carbonate (Renvela) 1,600 mg PO TID [facility] Last Admin: 06/26/18 08:14 Dose: 1,600 mg Sodium Bicarbonate (Sodium Bicarbonate Tab) 650 mg PO Q8 [facility] Last Admin: 06/26/18 08:14 Dose: 650 mg Tenofovir Disoproxil Fumarate (Viread) 300 mg PO DAILY [facility]; Protocol Last Admin: 06/26/18 08:14 Dose: 300 mg - Labs Labs: 06/26/18 06:00 06/26/18 06:00 PT 13.1 Seconds (9.8-13.1) 06/18/18 05:47 INR 1.2 06/18/18 05:47 APTT 28.9 Seconds (25.6-37.1) 06/18/18 05:47 - Constitutional Appears: Confused, Cachectic, Chronically Ill - Head Exam Head Exam: NORMOCEPHALIC - Eye Exam Eye Exam: absent: Scleral icterus - ENT Exam ENT Exam: Mucous Membranes Dry - Neck Exam Neck Exam: absent: Lymphadenopathy - Respiratory Exam Respiratory Exam: Decreased Breath Sounds, Rhonchi - Cardiovascular Exam Cardiovascular Exam: REGULAR RHYTHM, +S1, +S2 - GI/Abdominal Exam GI & Abdominal Exam: Distended, Soft. absent: Tenderness - Rectal Exam Rectal Exam: Deferred - Exam Exam: NORMAL INSPECTION - Extremities Exam Extremities Exam: Pedal Edema - Back Exam Back Exam: absent: CVA tenderness (L), CVA tenderness (R), paraspinal tenderness - Neurological Exam Neurological Exam: Altered - Psychiatric Exam Psychiatric exam: Depressed - Skin Skin Exam: Dry Assessment and Plan (1) Acute renal failure Status: Acute (2) Altered mental status Status: Acute (3) Diabetes mellitus Status: Acute (4) HIV (human immunodeficiency virus infection) Status: Acute (5) Pneumonia Status: Acute (6) Encephalopathy Status: Acute - Assessment and Plan (Free Text) Assessment: AIDS with resp failure, encephalopathy and pneumonia will likely need trach / PEG repeat sputum c/s sent
[2018-06-26] MEDS ORDERED: Sodium Chloride 3% for Inhalation 4 ML VIAL.NEB IH PRN (10:28)
--- NOTE | 2018-06-26 10:47 | CP.PCM.PN ---
Subjective - Date & Time of Evaluation Date of Evaluation: 06/26/18 Time of Evaluation: 10:47 - Subjective Subjective: Neuro Follow-Up Note: Mr. Henry was evaluated this morning in the ICU. He remains intubated, off sedation. Pt is slightly lethargic but more alert than yesterday. He is still unable to follow commands. Chart reviewed. ROS unobtainable due to pt's condition. Objective - Vital Signs/Intake and Output Vital Signs (last 24 hours): Temp Pulse Resp BP Pulse Ox 99.5 F 66 22 109/69 99 06/26/18 08:00 06/26/18 10:00 06/26/18 10:00 06/26/18 10:00 06/26/18 10:00 Intake and Output: 06/26/18 06/26/18 06:59 18:59 Intake Total 1104 360 Balance 1104 360 - Medications Medications: Current Medications Acetaminophen (Tylenol 325mg Tab) 650 mg PO Q4 PRN PRN Reason: Fever >100.4 F Last Admin: 06/25/18 21:40 Dose: 650 mg Acetaminophen (Tylenol 650 Mg Supp) 650 mg [place] Q6 PRN PRN Reason: Fever >100.4 F Last Admin: 06/20/18 02:30 Dose: 650 mg Acetaminophen (Tylenol 650mg/20.3ml Solution Ud) 650 mg NG Q4 PRN PRN Reason: fever 100.4 or above Azithromycin (Zithromax) 1,200 mg PO QWK [facility]; Protocol Dextrose (Dextrose 50% Inj) 0 ml IV STAT PRN; Protocol PRN Reason: Hypoglycemia Protocol Dextrose (Glutose 15) 0 gm PO ONCE PRN; Protocol PRN Reason: Hypoglycemia Protocol Dimethicone (Proshield Plus Skin Protectant) 1 applic TOP Q8 [facility] Last Admin: 06/26/18 08:16 Dose: 1 applic Enoxaparin Sodium (Lovenox) 30 mg SC DAILY [facility]; Protocol Last Admin: 06/17/18 09:20 Dose: 30 mg Famotidine (Pepcid) 20 mg IVP Q12 [facility] Last Admin: 06/26/18 09:41 Dose: 20 mg Glucagon (Glucagen Diagnostic Kit) 0 mg IM STAT PRN; Protocol PRN Reason: Hypoglycemia Protocol Micafungin Sodium 100 mg/ (Sodium Chloride) 100 mls @ 100 mls/hr IVPB DAILY [facility]; Protocol Last Admin: 06/26/18 08:15 Dose: 100 mls/hr Trimethoprim/Sulfamethoxazole (475 mg/ Dextrose) 500 mls @ 250 mls/hr IVPB Q12 [facility] Last Admin: 06/26/18 09:33 Dose: 250 mls/hr Propofol (Diprivan) 1,000 mg in 100 mls @ 1.783 mls/hr IV .Q24H [facility]; Protocol Stop: 06/27/18 05:52 Last Titration: 06/26/18 10:13 Dose: 5 mcg/kg/min, 1.783 mls/hr Insulin Human Lispro (Humalog) 0 units SC 0000,0600,1200,1800 [facility]; Protocol Last Admin: 06/26/18 05:23 Dose: 2 units Lamivudine (Epivir) 300 mg PO DAILY [facility]; Protocol Last Admin: 06/26/18 08:14 Dose: 300 mg Methylprednisolone (Solu-Medrol) 40 mg IVP Q12 [facility] Last Admin: 06/26/18 08:14 Dose: 40 mg Morphine Sulfate (Morphine) 2 mg IVP Q6 PRN PRN Reason: Pain, moderate (4-7) Last Admin: 06/26/18 09:41 Dose: 2 mg Nystatin (Nystop Topical Powder) 1 applic TOP TID [facility] Last Admin: 06/26/18 08:16 Dose: 1 applic Raltegravir (Isentress) 400 mg PO BID [facility]; Protocol Last Admin: 06/26/18 08:15 Dose: 400 mg Sevelamer Carbonate (Renvela) 1,600 mg PO TID [facility] Last Admin: 06/26/18 08:14 Dose: 1,600 mg Sodium Bicarbonate (Sodium Bicarbonate Tab) 650 mg PO Q8 [facility] Last Admin: 06/26/18 08:14 Dose: 650 mg Tenofovir Disoproxil Fumarate (Viread) 300 mg PO DAILY [facility]; Protocol Last Admin: 06/26/18 08:14 Dose: 300 mg - Labs Labs: 06/26/18 06:00 06/26/18 06:00 PT 13.1 Seconds (9.8-13.1) 06/18/18 05:47 INR 1.2 06/18/18 05:47 APTT 28.9 Seconds (25.6-37.1) 06/18/18 05:47 - Constitutional Appears: Other (intubated off sedation; slightly lethargic but more alert com pared to yesterday) - Head Exam Head Exam: ATRAUMATIC, NORMAL INSPECTION, NORMOCEPHALIC - Eye Exam Eye Exam: Normal appearance, PERRL Pupil Exam: NORMAL ACCOMODATION, PERRL Additional comments: No gaze preference noted today. Eyes open spontaneously and throughout neuro exam. Pupils are both reactive to light (approx 3 mm b/l) + corneals, + dolls eyes - ENT Exam ENT Exam: Mucous Membranes Moist Additional comments: intubated - Respiratory Exam Respiratory Exam: absent: NORMAL BREATHING PATTERN (intubated) - Cardiovascular Exam Cardiovascular Exam: REGULAR RHYTHM - GI/Abdominal Exam Additional comments: OGT in place - Extremities Exam Extremities Exam: absent: Full ROM Additional comments: Some non-purposeful movements to BUE and BLE noted today. BUE not as flaccid today as yesterday - Neurological Exam Neurological Exam: Altered Additional comments: Pt remains intubated, off sedation, somewhat lethargic but more alert than yesterday. Still unable to follow commands. Eyes open spontaneously and throughout neuro exam. No gaze preference noted today. Some non-purposeful movements to BUE and BLE noted. BUE not as flaccid today as yesterday. No cardroom manager appreciated; no plantar or dorsi flexion appreciated. No tremors; no clonus noted Toes down going b/l. Hyporeflexia noted BLE + pupil response to light (approx 3 mm b/l) + dolls eyes; + corneal reflex. - Psychiatric Exam Additional comments: still somewhat lethargic but more alert today than yesterday. Has eyes opn throughout neuro exam. Moving extremities non-purposefully. - Skin Additional comments: bruise noted to right wrist/distal forearm Assessment and Plan (1) Altered mental status Assessment & Plan: Imaging reviewed: -MRI Brain (06/23/18): Limited study degraded by motion artifact. No evidence of acute infarct or acute intracranial hemorrhage. No evidence of hydrocephalus mass lesion mass effect or midline shift. -CT Head (06/21/18): No intracranial mass, hemorrhage or evidence of acute infarct. Mild age-appropriate diffuse atrophy -CT Head (06/20/18): No acute intracranial abnormalities. No significant findings to account for the clinical presentation. No significant interval change compared to the prior examination(s). -Non-contrast CT Head (06/11/18): No acute intracranial abnormality. Moderate global parenchymal volume loss. -ECHO (06/12/18): EF 55-60% -Repeat EEG (06/21/18): marked slowing, no seizures. -VEEG (06/15/18): low amplitude, no seizures. -LP was done on 06/18/18---results reviewed; still pending results for CSF VDRL. IgG not done per results. -Continue ICU management and recommendations per ID and other consults. -Continue treatment of underlying cause. -Notify neuro team of any acute changes in pt's condition. Susan Falcon DNP, HIM ASSISTANT Case discussed with Dr. Low Status: Acute
[2018-06-26 11:06] LABS: LYMPHOCYTE 2 % (20-50); MONOCYTE 3 % (0-10); NEUTROPHIL 95 % (42-75); TOTAL CELLS COUNTED 100
[2018-06-26 11:07] LABS: PLATELET ESTIMATE NORMAL (NORMAL)
[2018-06-26 11:08] LABS: ANISOCYTOSIS SLIGHT; HYPOCHROMIC SLIGHT; SMUDGE CELLS PRESENT
[2018-06-26 11:14] LABS: STREP PNEUMONIAE NEGATIVE (NEGATIVE); STREPTOCOCCUS B NEGATIVE (NEGATIVE)
[2018-06-26 11:15] LABS: N MENINGITIS ACY/W135 NEGATIVE (NEGATIVE); N MENINGITIS B/ECOLI K1 NEGATIVE (NEGATIVE)
--- NOTE | 2018-06-26 13:00 | RAD ---
Date of service: 06/26/2018 PROCEDURE: CHEST RADIOGRAPH, 1 VIEW HISTORY: Pneumonia COMPARISON: Multiple serial examinations preceding the most recent study: 2018. FINDINGS: LUNGS: Interval improvement in infiltrates, right upper lobe and left lower lobe. PLEURA: No pneumothorax or pleural fluid seen. CARDIOVASCULAR: No aortic atherosclerotic calcification present. Normal. PICC line in satisfactory position unchanged. OSSEOUS STRUCTURES: No significant abnormalities. VISUALIZED UPPER ABDOMEN: Normal. OTHER FINDINGS: Stable, satisfactory position ventilatory, nasogastric apparatus. IMPRESSION: Improving bilateral infiltrates. Stable position of support apparatus.
--- NOTE | 2018-06-26 13:46 | CP.PCM.PN ---
Subjective - Date & Time of Evaluation Date of Evaluation: 06/26/18 Time of Evaluation: 13:44 - Subjective Subjective: Patient remain intubated. And not communicating well. Somewhat he looks much better than yesterday. Vital signs noted. Objective - Vital Signs/Intake and Output Vital Signs (last 24 hours): Temp Pulse Resp BP Pulse Ox 99.5 F 74 22 109/69 99 06/26/18 12:00 06/26/18 12:00 06/26/18 12:00 06/26/18 12:00 06/26/18 12:00 Intake and Output: 06/26/18 06/26/18 06:59 18:59 Intake Total 1104 640 Output Total 550 Balance 1104 90 - Medications Medications: Current Medications Acetaminophen (Tylenol 325mg Tab) 650 mg PO Q4 PRN PRN Reason: Fever >100.4 F Last Admin: 06/25/18 21:40 Dose: 650 mg Acetaminophen (Tylenol 650 Mg Supp) 650 mg [place] Q6 PRN PRN Reason: Fever >100.4 F Last Admin: 06/20/18 02:30 Dose: 650 mg Acetaminophen (Tylenol 650mg/20.3ml Solution Ud) 650 mg NG Q4 PRN PRN Reason: fever 100.4 or above Azithromycin (Zithromax) 1,200 mg PO QWK [facility]; Protocol Dextrose (Dextrose 50% Inj) 0 ml IV STAT PRN; Protocol PRN Reason: Hypoglycemia Protocol Dextrose (Glutose 15) 0 gm PO ONCE PRN; Protocol PRN Reason: Hypoglycemia Protocol Dimethicone (Proshield Plus Skin Protectant) 1 applic TOP Q8 [facility] Last Admin: 06/26/18 08:16 Dose: 1 applic Enoxaparin Sodium (Lovenox) 30 mg SC DAILY [facility]; Protocol Last Admin: 06/17/18 09:20 Dose: 30 mg Famotidine (Pepcid) 20 mg IVP Q12 [facility] Last Admin: 06/26/18 09:41 Dose: 20 mg Glucagon (Glucagen Diagnostic Kit) 0 mg IM STAT PRN; Protocol PRN Reason: Hypoglycemia Protocol Micafungin Sodium 100 mg/ (Sodium Chloride) 100 mls @ 100 mls/hr IVPB DAILY [facility]; Protocol Last Admin: 06/26/18 08:15 Dose: 100 mls/hr Trimethoprim/Sulfamethoxazole (475 mg/ Dextrose) 500 mls @ 250 mls/hr IVPB Q12 [facility] Last Admin: 06/26/18 09:33 Dose: 250 mls/hr Propofol (Diprivan) 1,000 mg in 100 mls @ 1.783 mls/hr IV .Q24H [facility]; Protocol Stop: 06/27/18 05:52 Last Titration: 06/26/18 12:36 Dose: 10 mcg/kg/min, 3.565 mls/hr Insulin Human Lispro (Humalog) 0 units SC 0000,0600,1200,1800 [facility]; Protocol Last Admin: 06/26/18 12:14 Dose: 2 units Lamivudine (Epivir) 300 mg PO DAILY [facility]; Protocol Last Admin: 06/26/18 08:14 Dose: 300 mg Methylprednisolone (Solu-Medrol) 40 mg IVP Q12 [facility] Last Admin: 06/26/18 08:14 Dose: 40 mg Morphine Sulfate (Morphine) 2 mg IVP Q6 PRN PRN Reason: Pain, moderate (4-7) Last Admin: 06/26/18 09:41 Dose: 2 mg Nystatin (Nystop Topical Powder) 1 applic TOP TID [facility] Last Admin: 06/26/18 12:15 Dose: 1 applic Raltegravir (Isentress) 400 mg PO BID [facility]; Protocol Last Admin: 06/26/18 08:15 Dose: 400 mg Sevelamer Carbonate (Renvela) 1,600 mg PO TID [facility] Last Admin: 06/26/18 12:15 Dose: 1,600 mg Sodium Bicarbonate (Sodium Bicarbonate Tab) 650 mg PO Q8 [facility] Last Admin: 06/26/18 08:14 Dose: 650 mg Tenofovir Disoproxil Fumarate (Viread) 300 mg PO DAILY [facility]; Protocol Last Admin: 06/26/18 08:14 Dose: 300 mg - Labs Labs: 06/26/18 06:00 06/26/18 06:00 PT 13.1 Seconds (9.8-13.1) 06/18/18 05:47 INR 1.2 06/18/18 05:47 APTT 28.9 Seconds (25.6-37.1) 06/18/18 05:47 - Constitutional Appears: No Acute Distress - Eye Exam Eye Exam: Conjunctival injection - ENT Exam ENT Exam: Mucous Membranes Moist - Neck Exam Neck Exam: absent: Lymphadenopathy - Respiratory Exam Respiratory Exam: Rales, NORMAL BREATHING PATTERN - Cardiovascular Exam Cardiovascular Exam: absent: Gallop, JVD, Rubs - GI/Abdominal Exam GI & Abdominal Exam: Soft, Normal Bowel Sounds - Extremities Exam Extremities Exam: absent: Calf Tenderness - Back Exam Back Exam: absent: CVA tenderness (L), CVA tenderness (R) - Neurological Exam Neurological Exam: Altered - Psychiatric Exam Psychiatric exam: Flat Affect - Skin Skin Exam: absent: Cyanosis Assessment and Plan (1) Acute renal failure Assessment & Plan: Acute renal failure related to HIV or sepsis or combination Sepsis Encephalopathy Respiratory failure Plan Kidney function continued to improve with serum creatinine 1.3 Status post spinal tap 0n 06/18 Continue gentle hydration Kidney function stable for now Patient on multiple antibiotics to keep watching kidney function and the dose of the antibiotics as per GFR As per primary team and intensive care unit Repeat serum phosphorus pending Status: Acute (2) HIV (human immunodeficiency virus infection) Status: Acute
--- NOTE | 2018-06-26 13:49 | PQF ---
PROVIDER RESPONSE TEXT: Sepsis POA REVIEWER QUERY TEXT: Conflicting Documentation Clarification 1) Renal and Lab Technologist notes with an additional diagnosis of Sepsis. Please clarify if you concur with Sepsis and was it present on admission or not. 2) Lab Technologist with an additional diagnosis of Severe Sepsis with Septic Shock. Please clarify if you concur with Septic Shock A single mention or documentation of multiple diagnoses for the same clinical presentation appears in the record. Please clarify the diagnosis/diagnoses. Please also document if the condition is: -- Confirmed and current -- Confirmed, treated and resolved -- Ruled out -- Other, please specify The patient's Clinical Indicators include: 06/13 RENAL: Sepsis spiking fever 06/14 RENAL: Sepsis, Acute renal failure related to HIV or Sepsis 06/13 ICU: Sepsis 06/14 ICU: Severe sepsis, Acute renal injury due to circulatory failure and septic shock ------BP as low as 77/44 Rx: IVF hydration, IVF Bolus of 1 Liter , No vasopressors Lactate 0.9, WBC 7.2 L shift TEMP Declan on 06/13/18 of 103, 103, 102.9 HR 06/11/18: 130. 97, 103, 113, 125 BP 06/11/18: 122/88, 110/72 06/12/18: 96/57, 91/57, 90/56, 128/71 06/13 86/50, 82/43, 101/51 Query created by: Janie Yung on 06/15/2018 10:43 AM Electronically signed by: Hipolito Glover MD 06/26/2018 1:46 PM
--- NOTE | 2018-06-26 13:49 | PQF ---
PROVIDER RESPONSE TEXT: Pneumonia POA possible PCP REVIEWER QUERY TEXT: Present On Admission It is unclear whether a diagnosis was present on admission. Your help is needed. Please clarify the POA status of Pneumonia treated for PCP. Such as: -- Present on admission -- Not present on admission The patient's Clinical Indicators include: 67 y/o M, brought to [facility], on , to be evaluated for AMS on DOA with no changes, associated to weakness/dizziness, unkempt, as pe EMS, found with unsuitable living, multiple medicati ons bottles around residence but not brought with Pt. Cachexia, not eating for days, on evaluation, found with abnormal kidney function., positive for HIV, nocturia. CXR: No acute cardiopulmonary disease. 06/13 CT Chest: Upper lobe heterogeneous ground-glass opacities. Lower lobe reticular interstitial inf iltrates with minimal patchy consolidation at the extreme lung bases in both lower lobes. Possible i nfectious versus inflammatory etiology. Rx: IVAB Query created by: Janie Yung on 06/15/2018 10:10 AM Electronically signed by: Hipolito Glover MD 06/26/2018 1:46 PM
--- NOTE | 2018-06-26 14:46 | CP.PCM.PN ---
Subjective - Date & Time of Evaluation Date of Evaluation: 06/26/18 Time of Evaluation: 11:00 - Subjective Subjective: F/U Respiratory failure Intubated, unable to follow commands. Objective - Vital Signs/Intake and Output Vital Signs (last 24 hours): Temp Pulse Resp BP Pulse Ox 99.5 F 85 22 109/69 98 06/26/18 12:00 06/26/18 14:00 06/26/18 14:00 06/26/18 14:00 06/26/18 14:00 Intake and Output: 06/26/18 06/26/18 06:59 18:59 Intake Total 1104 720 Output Total 550 Balance 1104 170 - Medications Medications: Current Medications Acetaminophen (Tylenol 325mg Tab) 650 mg PO Q4 PRN PRN Reason: Fever >100.4 F Last Admin: 06/25/18 21:40 Dose: 650 mg Acetaminophen (Tylenol 650 Mg Supp) 650 mg [place] Q6 PRN PRN Reason: Fever >100.4 F Last Admin: 06/20/18 02:30 Dose: 650 mg Acetaminophen (Tylenol 650mg/20.3ml Solution Ud) 650 mg NG Q4 PRN PRN Reason: fever 100.4 or above Azithromycin (Zithromax) 1,200 mg PO QWK [facility]; Protocol Dextrose (Dextrose 50% Inj) 0 ml IV STAT PRN; Protocol PRN Reason: Hypoglycemia Protocol Dextrose (Glutose 15) 0 gm PO ONCE PRN; Protocol PRN Reason: Hypoglycemia Protocol Dimethicone (Proshield Plus Skin Protectant) 1 applic TOP Q8 [facility] Last Admin: 06/26/18 08:16 Dose: 1 applic Enoxaparin Sodium (Lovenox) 30 mg SC DAILY [facility]; Protocol Last Admin: 06/17/18 09:20 Dose: 30 mg Famotidine (Pepcid) 20 mg IVP Q12 [facility] Last Admin: 06/26/18 09:41 Dose: 20 mg Glucagon (Glucagen Diagnostic Kit) 0 mg IM STAT PRN; Protocol PRN Reason: Hypoglycemia Protocol Micafungin Sodium 100 mg/ (Sodium Chloride) 100 mls @ 100 mls/hr IVPB DAILY [facility] ; Protocol Last Admin: 06/26/18 08:15 Dose: 100 mls/hr Trimethoprim/Sulfamethoxazole (475 mg/ Dextrose) 500 mls @ 250 mls/hr IVPB Q12 [facility] Last Admin: 06/26/18 09:33 Dose: 250 mls/hr Propofol (Diprivan) 1,000 mg in 100 mls @ 1.783 mls/hr IV .Q24H [facility]; Protocol Stop: 06/27/18 05:52 Last Titration: 06/26/18 12:36 Dose: 10 mcg/kg/min, 3.565 mls/hr Insulin Human Lispro (Humalog) 0 units SC 0000,0600,1200,1800 [facility]; Protocol Last Admin: 06/26/18 12:14 Dose: 2 units Lamivudine (Epivir) 300 mg PO DAILY [facility]; Protocol Last Admin: 06/26/18 08:14 Dose: 300 mg Methylprednisolone (Solu-Medrol) 40 mg IVP Q12 [facility] Last Admin: 06/26/18 08:14 Dose: 40 mg Morphine Sulfate (Morphine) 2 mg IVP Q6 PRN PRN Reason: Pain, moderate (4-7) Last Admin: 06/26/18 09:41 Dose: 2 mg Nystatin (Nystop Topical Powder) 1 applic TOP TID [facility] Last Admin: 06/26/18 12:15 Dose: 1 applic Raltegravir (Isentress) 400 mg PO BID [facility]; Protocol Last Admin: 06/26/18 08:15 Dose: 400 mg Sevelamer Carbonate (Renvela) 1,600 mg PO TID [facility] Last Admin: 06/26/18 12:15 Dose: 1,600 mg Sodium Bicarbonate (Sodium Bicarbonate Tab) 650 mg PO Q8 [facility] Last Admin: 06/26/18 08:14 Dose: 650 mg Tenofovir Disoproxil Fumarate (Viread) 300 mg PO DAILY [facility]; Protocol Last Admin: 06/26/18 08:14 Dose: 300 mg - Labs Labs: 06/26/18 06:00 06/26/18 06:00 PT 13.1 Seconds (9.8-13.1) 06/18/18 05:47 INR 1.2 06/18/18 05:47 APTT 28.9 Seconds (25.6-37.1) 06/18/18 05:47 - Constitutional Appears: Chronically Ill - Head Exam Head Exam: NORMAL INSPECTION - Eye Exam Additional comments: Pupils sluggish reaction to light - ENT Exam Additional comments: Intubated. NGT - Neck Exam Neck Exam: Normal Inspection - Respiratory Exam Respiratory Exam: Decreased Breath Sounds (at bases), Rhonchi - Cardiovascular Exam Cardiovascular Exam: REGULAR RHYTHM - GI/Abdominal Exam GI & Abdominal Exam: Soft - Exam Additional comments: Yang Cath. - Extremities Exam Additional comments: Edema BUE - Neurological Exam Additional comments: Intubated, sedated, no spontaneous movements of extremities - Skin Skin Exam: Warm Assessment and Plan (1) Respiratory failure Status: Acute (2) Altered mental status Status: Acute (3) HIV (human immunodeficiency virus infection) Status: Acute (4) Fever Status: Acute (5) Pneumonia Status: Acute (6) Severe sepsis Status: Acute (7) Acute renal failure Status: Acute (8) Diabetes mellitus Status: Acute - Assessment and Plan (Free Text) Plan: Continue Ventilator support, Isentress, Sulfamethoxazole, Tenofovir Disoproxil, Solu-Medrol, Epivir, Morphine, Nistatin, Micafungin and rest of Tx. Critical care time: 31 min.
[2018-06-27] MEDS: Insulin Lispro (humaLOG) 100 Units/ml Inj SC SCH ×4 (00:04→17:06)
[2018-06-27 05:45] LABS: ABG ALLEN TEST YES; ARTERIAL BLOOD GAS HCO3 29.2 mmol/L (21-28); ARTERIAL BLOOD GAS HEMOGLOBIN 8.8 g/dL (11.7-17.4); ARTERIAL BLOOD GAS O2 CAPACITY 12.4 mL/dL (16-24); ARTERIAL BLOOD GAS O2 CONTENT 12.5 ML/dL (15-23); ARTERIAL BLOOD GAS O2 SAT 100.6 % (95-98); ARTERIAL BLOOD GAS PCO2 35 mm/Hg (35-45); ARTERIAL BLOOD GAS PH 7.52 (7.35-7.45); ARTERIAL BLOOD GAS PO2 165 mm/Hg (80-100); ARTERIAL BLOOD GAS TCO2 29.7 mmol/L (22-28)
[2018-06-27] MEDS: SULFAMETHOXAZOLE IVPB SCH ×2 (08:21→20:14)
[2018-06-27] MEDS: WATER IVPB SCH ×2 (08:21→20:14)
[2018-06-27] MEDS: DEXTROSE 5% IVPB SCH ×2 (08:21→20:14)
[2018-06-27] MEDS: TRIMETHOPRIM IVPB SCH ×2 (08:21→20:14)
[2018-06-27] MEDS: Micafungin 100 MG in Sodium Chloride 0.9% 100 ML IVPB SCH (08:22)
[2018-06-27] MEDS: MethylPREDNISolone 40 mg Vial IVP SCH ×2 (08:23→20:15)
[2018-06-27] MEDS: Proshield Plus GEL TOP SCH ×3 (08:23→16:20)
--- NOTE | 2018-06-27 09:35 | RAD ---
Date of service: 06/27/2018 HISTORY: vented COMPARISON: Portable chest 06/26/2018 FINDINGS: LUNGS: Endotracheal and nasogastric tubes do not appear significantly changed in position. Right PICC unchanged as well. Limited mix infiltrates are again seen with granular opacity at the left hilar region and superolateral right lung zones and atelectasis or infiltrate at the medial left base. PLEURA: No significant pleural effusion identified, no pneumothorax apparent. CARDIOVASCULAR: No aortic atherosclerotic calcification present. Normal cardiac size. No pulmonary vascular congestion. OSSEOUS STRUCTURES: No significant abnormalities. VISUALIZED UPPER ABDOMEN: Normal. OTHER FINDINGS: None. IMPRESSION: Stable limited mixed infiltrates bilaterally, as discussed above. No interval pulmonary vascular congestion or pleural effusion identified. Cardiac silhouette stable.
[2018-06-27 09:42] LABS: HEMOGLOBIN 8.9 g/dL (12.0-18.0); MEAN CELL VOLUME 85.1 fl (80.0-94.0); MEAN CORPUSCULAR HEMOGLOBIN 27.6 pg (27.0-31.0); MEAN CORPUSCULAR HGB CONC 32.4 g/dL (33.0-37.0); RBC 3.22 Mil/uL (4.40-5.90); RED CELL DISTRIBUTION WIDTH 16.4 % (11.5-14.5); WHITE BLOOD COUNT 5.9 K/uL (4.8-10.8)
[2018-06-27 09:59] LABS: ALB/GLOB RATIO 0.8 (1.0-2.1); ALBUMIN 2.5 g/dL (3.5-5.0); ALT/SGPT 42 U/L (21-72); AST/SGOT 32 U/L (17-59); BLOOD UREA NITROGEN 46 mg/dl (9-20); GFR NON-AFRICAN AMERICAN 55
--- NOTE | 2018-06-27 10:09 | CP.CCUPN ---
CCU Subjective - Physician Review Subjective (Free Text): Intermittently agitated and moving head to-and-fro, moving RUE more so than LUE, on Propofol at 15 mcg dose, breathing 24 on AC 22, 400ml, 50% just reduced to 45% an hour ago, PEEP 5, SPO2 100%. He did not tolerate brief CPAP PS trial, up to CPAP 8, PS 18 with RR increasing to 32. Afebrile, no fever spikes, SBPs 110s, HR 100, 27, 100% SPO2; fluid balance last 24H= essentially even. No other distress noted. ROS: Other 12 system ROS unobtainable due agitation and oral intubation. Other PMSFH: All other Nursing and physician documentation reviewed to date; no new pertinent info noted relevant to current medical problems. EXAM- HEENT: no icterus, pupils equal, 3 mm and reactive, no nystagmus NECK: no visible JVD, supple, carotids equal upstroke bilat/no bruits CHEST: decreased BS bases, no wheezes audible HEART: regular, distant, non-tachy S1S2, no murmur audible, no rubs. ABD: soft, no increased distention, no focal tenderness, BS hypoactive, EXT: +edema, no peripheral/ digital cyanosis, no calf tenderness or palpable cords, distal pulses intact and symmetrical. RUE PICC. NEURO: withdraws all extremities to pain, tone decreased. SKIN: no rashes LABS: Jun 26 bloodwork reviewed: none today or remains pending- WBC= 9.8 HGB= 10.6 PLTs = 195K 7.52/35/165 Na= 137 K= 5.0 Cl= 98 HCO3= 29 BUN/Cr= 46/1.3 BS= 221 CXR: (my interp)- ETT position OK above cassie, no new gross consolidation, pneumonic changes appear slightly improved, small left effusion. IMPRESSION / MAJOR PROBLEMS NOW: Major multi-system organ insufficiency / Failure- 1. Acute Hypoxemic Resp Failure 2 Pneumonia (etiology undetermined: possible PCP, atypical, other opportunistic pneumonitis, r/o Pulm TB) 2. AMS, r/o TRANSIT COACH OPERATOR infection, other toxic/metabolic encephalopathy, vs other possible TRANSIT COACH OPERATOR manifestations of AIDs. 3. New HIV+ 4. Azotemia / Dehydration with Hyperkalemia 5. Chronic Disease Anemia PLAN: 1. MV support ongoing, lowered FiO2 to 45%. Day# 10 on MV. 2. Empiric abx coverage noted: Azithro/ Micafungin / Bactrim. HAART meds also started. No definitive new organisms isolated except for Yeats in sputum, may have been oral contamination as well. FOB was never done, cancelled 2 previous instability. 3. Repeat CT brain imagings x 3 done and all negative for any new changes. LP done Feb 11, no clear etiological results. EEG negative for seizures. 4. Watch for Delirium, consider switch to Precedex if HR tolerates. 5. ECHO on Feb 5 unremarkable for new pathology.
--- NOTE | 2018-06-27 10:34 | CP.PCM.PN ---
Subjective - Date & Time of Evaluation Date of Evaluation: 06/27/18 Time of Evaluation: 10:31 - Subjective Subjective: Patient remain intubated. Vital signs stable. Kidney function stable Objective - Vital Signs/Intake and Output Vital Signs (last 24 hours): Temp Pulse Resp BP Pulse Ox 98.8 F 70 22 110/65 98 06/27/18 10:00 06/27/18 10:00 06/27/18 10:00 06/27/18 10:00 06/27/18 10:00 Intake and Output: 06/27/18 06/27/18 06:59 18:59 Intake Total 1700 1021 Output Total 1500 Balance 200 1021 - Medications Medications: Current Medications Acetaminophen (Tylenol 325mg Tab) 650 mg PO Q4 PRN PRN Reason: Fever >100.4 F Last Admin: 06/25/18 21:40 Dose: 650 mg Acetaminophen (Tylenol 650 Mg Supp) 650 mg [place] Q6 PRN PRN Reason: Fever >100.4 F Last Admin: 06/20/18 02:30 Dose: 650 mg Acetaminophen (Tylenol 650mg/20.3ml Solution Ud) 650 mg NG Q4 PRN PRN Reason: fever 100.4 or above Dextrose (Dextrose 50% Inj) 0 ml IV STAT PRN; Protocol PRN Reason: Hypoglycemia Protocol Dextrose (Glutose 15) 0 gm PO ONCE PRN; Protocol PRN Reason: Hypoglycemia Protocol Dimethicone (Proshield Plus Skin Protectant) 1 applic TOP Q8 [facility] Last Admin: 06/27/18 08:23 Dose: 1 applic Enoxaparin Sodium (Lovenox) 30 mg SC DAILY [facility]; Protocol Last Admin: 06/17/18 09:20 Dose: 30 mg Famotidine (Pepcid) 20 mg IVP Q12 [facility] Last Admin: 06/27/18 08:25 Dose: 20 mg Glucagon (Glucagen Diagnostic Kit) 0 mg IM STAT PRN; Protocol PRN Reason: Hypoglycemia Protocol Micafungin Sodium 100 mg/ (Sodium Chloride) 100 mls @ 100 mls/hr IVPB DAILY [facility]; Protocol Last Admin: 06/27/18 08:22 Dose: 100 mls/hr Trimethoprim/Sulfamethoxazole (475 mg/ Dextrose) 500 mls @ 250 mls/hr IVPB Q12 [facility] Last Admin: 06/27/18 08:21 Dose: 250 mls/hr Insulin Human Lispro (Humalog) 0 units SC 0000,0600,1200,1800 [facility]; Protocol Last Admin: 06/27/18 06:04 Dose: 3 units Lamivudine (Epivir) 300 mg PO DAILY [facility]; Protocol Last Admin: 06/27/18 08:21 Dose: 300 mg Methylprednisolone (Solu-Medrol) 40 mg IVP Q12 [facility] Last Admin: 06/27/18 08:23 Dose: 40 mg Morphine Sulfate (Morphine) 2 mg IVP Q6 PRN PRN Reason: Pain, moderate (4-7) Last Admin: 06/27/18 05:34 Dose: 2 mg Nystatin (Nystop Topical Powder) 1 applic TOP TID [facility] Last Admin: 06/27/18 08:22 Dose: 1 applic Raltegravir (Isentress) 400 mg PO BID [facility]; Protocol Last Admin: 06/27/18 08:22 Dose: 400 mg Sevelamer Carbonate (Renvela) 1,600 mg PO TID [facility] Last Admin: 06/27/18 08:23 Dose: 1,600 mg Sodium Bicarbonate (Sodium Bicarbonate Tab) 650 mg PO Q8 [facility] Last Admin: 06/27/18 08:23 Dose: 650 mg Tenofovir Disoproxil Fumarate (Viread) 300 mg PO DAILY [facility]; Protocol Last Admin: 06/27/18 08:23 Dose: 300 mg - Labs Labs: 06/27/18 04:50 06/27/18 04:50 PT 13.1 Seconds (9.8-13.1) 06/18/18 05:47 INR 1.2 06/18/18 05:47 APTT 28.9 Seconds (25.6-37.1) 06/18/18 05:47 - Constitutional Appears: No Acute Distress - Eye Exam Eye Exam: Conjunctival injection - ENT Exam ENT Exam: Mucous Membranes Moist - Neck Exam Neck Exam: absent: Lymphadenopathy - Respiratory Exam Respiratory Exam: absent: Chest Wall Tenderness - Cardiovascular Exam Cardiovascular Exam: absent: Gallop, JVD, Rubs - GI/Abdominal Exam GI & Abdominal Exam: Soft, Normal Bowel Sounds - Extremities Exam Extremities Exam: absent: Calf Tenderness - Back Exam Back Exam: absent: CVA tenderness (L), CVA tenderness (R) - Neurological Exam Neurological Exam: Altered - Skin Skin Exam: absent: Cyanosis Assessment and Plan (1) Acute renal failure Assessment & Plan: Acute renal failure related to HIV or sepsis or combination Sepsis Encephalopathy Respiratory failure Hyperkalemia Commendation Kayexalate and repeat potassium after about 6 hours . Patient receiving multiple antibiotics to keep on eye on the kidney function and close observation and adjustment for GFR Status: Acute (2) HIV (human immunodeficiency virus infection) Status: Acute
[2018-06-27] MEDS ORDERED: Sod Polystyrene Sulf 15 gm/60 ml Susp GT ONE (10:53)
--- NOTE | 2018-06-27 11:26 | CP.PCM.PN ---
Subjective - Date & Time of Evaluation Date of Evaluation: 06/27/18 Time of Evaluation: 11:24 - Subjective Subjective: Neuro Follow-Up Note: Mr. Henry was evaluated this morning in the ICU. He remains intubated, on sedation. Pt is sedated but is somewhat more alert compared to yesterday. He is able to follow a few simple commands (can open and close eyes on command and squeeze hand on command). Chart reviewed. ROS unobtainable by the pt. Objective - Vital Signs/Intake and Output Vital Signs (last 24 hours): Temp Pulse Resp BP Pulse Ox 98.8 F 70 22 110/65 98 06/27/18 10:00 06/27/18 10:00 06/27/18 10:00 06/27/18 10:00 06/27/18 10:00 Intake and Output: 06/27/18 06/27/18 06:59 18:59 Intake Total 1700 1021 Output Total 1500 Balance 200 1021 - Medications Medications: Current Medications Acetaminophen (Tylenol 325mg Tab) 650 mg PO Q4 PRN PRN Reason: Fever >100.4 F Last Admin: 06/25/18 21:40 Dose: 650 mg Acetaminophen (Tylenol 650 Mg Supp) 650 mg [place] Q6 PRN PRN Reason: Fever >100.4 F Last Admin: 06/20/18 02:30 Dose: 650 mg Acetaminophen (Tylenol 650mg/20.3ml Solution Ud) 650 mg NG Q4 PRN PRN Reason: fever 100.4 or above Dextrose (Dextrose 50% Inj) 0 ml IV STAT PRN; Protocol PRN Reason: Hypoglycemia Protocol Dextrose (Glutose 15) 0 gm PO ONCE PRN; Protocol PRN Reason: Hypoglycemia Protocol Dimethicone (Proshield Plus Skin Protectant) 1 applic TOP Q8 [facility] Last Admin: 06/27/18 08:23 Dose: 1 applic Enoxaparin Sodium (Lovenox) 30 mg SC DAILY [facility]; Protocol Last Admin: 06/17/18 09:20 Dose: 30 mg Famotidine (Pepcid) 20 mg IVP Q12 [facility] Last Admin: 06/27/18 08:25 Dose: 20 mg Glucagon (Glucagen Diagnostic Kit) 0 mg IM STAT PRN; Protocol PRN Reason: Hypoglycemia Protocol Micafungin Sodium 100 mg/ (Sodium Chloride) 100 mls @ 100 mls/hr IVPB DAILY [facility]; Protocol Last Admin: 06/27/18 08:22 Dose: 100 mls/hr Trimethoprim/Sulfamethoxazole (475 mg/ Dextrose) 500 mls @ 250 mls/hr IVPB Q12 [facility] Last Admin: 06/27/18 08:21 Dose: 250 mls/hr Propofol (Diprivan) 1,000 mg in 100 mls @ 1.755 mls/hr IV .Q24H [facility]; Protocol Stop: 06/28/18 10:52 Insulin Human Lispro (Humalog) 0 units SC 0000,0600,1200,1800 [facility]; Protocol Last Admin: 06/27/18 06:04 Dose: 3 units Lamivudine (Epivir) 300 mg PO DAILY [facility]; Protocol Last Admin: 06/27/18 08:21 Dose: 300 mg Methylprednisolone (Solu-Medrol) 40 mg IVP Q12 [facility] Last Admin: 06/27/18 08:23 Dose: 40 mg Morphine Sulfate (Morphine) 2 mg IVP Q6 PRN PRN Reason: Pain, moderate (4-7) Last Admin: 06/27/18 05:34 Dose: 2 mg Nystatin (Nystop Topical Powder) 1 applic TOP TID [facility] Last Admin: 06/27/18 08:22 Dose: 1 applic Raltegravir (Isentress) 400 mg PO BID [facility]; Protocol Last Admin: 06/27/18 08:22 Dose: 400 mg Sevelamer Carbonate (Renvela) 1,600 mg PO TID [facility] Last Admin: 06/27/18 08:23 Dose: 1,600 mg Sodium Bicarbonate (Sodium Bicarbonate Tab) 650 mg PO Q8 [facility] Last Admin: 06/27/18 08:23 Dose: 650 mg Tenofovir Disoproxil Fumarate (Viread) 300 mg PO DAILY [facility]; Protocol Last Admin: 06/27/18 08:23 Dose: 300 mg - Labs Labs: 06/27/18 04:50 06/27/18 04:50 PT 13.1 Seconds (9.8-13.1) 06/18/18 05:47 INR 1.2 06/18/18 05:47 APTT 28.9 Seconds (25.6-37.1) 06/18/18 05:47 - Constitutional Appears: Other (intubated, on sedation; can follow some commands, somewhat alert) - Head Exam Head Exam: NORMAL INSPECTION, NORMOCEPHALIC - Eye Exam Eye Exam: PERRL. absent: Nystagmus Pupil Exam: NORMAL ACCOMODATION, PERRL Additional comments: No gaze preference noted today. Eyes open and close on command and spontaneously and throughout neuro exam. Pupils are both reactive to light (approx 3 mm b/l) + corneals - ENT Exam ENT Exam: Mucous Membranes Moist Additional comments: intubated - Neck Exam Neck Exam: Normal Inspection - Respiratory Exam Respiratory Exam: absent: NORMAL BREATHING PATTERN Additional comments: intubated - Cardiovascular Exam Cardiovascular Exam: REGULAR RHYTHM - GI/Abdominal Exam Additional comments: OGT in place - Extremities Exam Additional comments: Some non-purposeful movements to BUE and BLE noted today. BUE not as flaccid today Able to tool and machine maintainer my hand on command with the left hand stronger than right - Neurological Exam Neurological Exam: Altered Additional comments: Pt remains intubated, on sedation, somewhat more alert today even on sedation. Able to follow some commands: opens and closes eyes on command; able to squeeze my hand on command (left stronger than right). Eyes open and close on command as well as spontaneously and throughout neuro exam. No gaze preference noted today. Some non-purposeful movements to BUE and BLE noted. BUE not as flaccid today; able to tool and machine maintainer (left 3/5; right 2/5). No tremors; no clonus noted Toes down going b/l. Hyporeflexia noted BLE + pupil response to light (approx 3 mm b/l) + corneal reflex. - Psychiatric Exam Additional comments: intubated - Skin Skin Exam: Normal Color Assessment and Plan (1) Altered mental status Assessment & Plan: Imaging reviewed: -MRI Brain (06/23/18): Limited study degraded by motion artifact. No evidence of acute infarct or acute intracranial hemorrhage. No evidence of hydrocephalus mass lesion mass effect or midline shift. -CT Head (06/21/18): No intracranial mass, hemorrhage or evidence of acute infarct. Mild age-appropriate diffuse atrophy -CT Head (06/20/18): No acute intracranial abnormalities. No significant findings to account for the clinical presentation. No significant interval change compared to the prior examination(s). -Non-contrast CT Head (06/11/18): No acute intracranial abnormality. Moderate global parenchymal volume loss. -ECHO (06/12/18): EF 55-60% -Repeat EEG (06/21/18): marked slowing, no seizures. -VEEG (06/15/18): low amplitude, no seizures. -LP was done on 06/18/18---results reviewed; IgG not done per results. VDRL resulted today and is nonreactive. -Continue ICU management and recommendations per ID and other consults. -Continue treatment of underlying cause as this seems to be metabolic (all imaging negative; LP results so far negative). -Discussed plan w ICU team. -Notify neuro team of any acute changes in pt's condition. No further neuro recommendations. Please reconsult prn. Susan Falcon DNP, [employer] Case discussed with Dr. Low Status: Acute
--- NOTE | 2018-06-27 11:52 | CP.PCM.PN ---
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 Objective - Vital Signs/Intake and Output Vital Signs (last 24 hours): Temp Pulse Resp BP Pulse Ox 98.8 F 70 22 110/65 98 06/27/18 10:00 06/27/18 10:00 06/27/18 10:00 06/27/18 10:00 06/27/18 10:00 Intake and Output: 06/27/18 06/27/18 06:59 18:59 Intake Total 1700 1021 Output Total 1500 Balance 200 1021 - Medications Medications: Current Medications Acetaminophen (Tylenol 325mg Tab) 650 mg PO Q4 PRN PRN Reason: Fever >100.4 F Last Admin: 06/25/18 21:40 Dose: 650 mg Acetaminophen (Tylenol 650 Mg Supp) 650 mg [place] Q6 PRN PRN Reason: Fever >100.4 F Last Admin: 06/20/18 02:30 Dose: 650 mg Acetaminophen (Tylenol 650mg/20.3ml Solution Ud) 650 mg NG Q4 PRN PRN Reason: fever 100.4 or above Dextrose (Dextrose 50% Inj) 0 ml IV STAT PRN; Protocol PRN Reason: Hypoglycemia Protocol Dextrose (Glutose 15) 0 gm PO ONCE PRN; Protocol PRN Reason: Hypoglycemia Protocol Dimethicone (Proshield Plus Skin Protectant) 1 applic TOP Q8 [facility] Last Admin: 06/27/18 08:23 Dose: 1 applic Enoxaparin Sodium (Lovenox) 30 mg SC DAILY [facility]; Protocol Last Admin: 06/17/18 09:20 Dose: 30 mg Famotidine (Pepcid) 20 mg IVP Q12 [facility] Last Admin: 06/27/18 08:25 Dose: 20 mg Glucagon (Glucagen Diagnostic Kit) 0 mg IM STAT PRN; Protocol PRN Reason: Hypoglycemia Protocol Micafungin Sodium 100 mg/ (Sodium Chloride) 100 mls @ 100 mls/hr IVPB DAILY [facility]; Protocol Last Admin: 06/27/18 08:22 Dose: 100 mls/hr Trimethoprim/Sulfamethoxazole (475 mg/ Dextrose) 500 mls @ 250 mls/hr IVPB Q12 [facility] Last Admin: 06/27/18 08:21 Dose: 250 mls/hr Propofol (Diprivan) 1,000 mg in 100 mls @ 1.755 mls/hr IV .Q24H [facility]; Protocol Stop: 06/28/18 10:52 Insulin Human Lispro (Humalog) 0 units SC 0000,0600,1200,1800 [facility]; Protocol Last Admin: 06/27/18 06:04 Dose: 3 units Lamivudine (Epivir) 300 mg PO DAILY [facility]; Protocol Last Admin: 06/27/18 08:21 Dose: 300 mg Methylprednisolone (Solu-Medrol) 40 mg IVP Q12 [facility] Last Admin: 06/27/18 08:23 Dose: 40 mg Morphine Sulfate (Morphine) 2 mg IVP Q6 PRN PRN Reason: Pain, moderate (4-7) Last Admin: 06/27/18 05:34 Dose: 2 mg Nystatin (Nystop Topical Powder) 1 applic TOP TID [facility] Last Admin: 06/27/18 08:22 Dose: 1 applic Raltegravir (Isentress) 400 mg PO BID [facility]; Protocol Last Admin: 06/27/18 08:22 Dose: 400 mg Tenofovir Disoproxil Fumarate (Viread) 300 mg PO DAILY [facility]; Protocol Last Admin: 06/27/18 08:23 Dose: 300 mg - Labs Labs: 06/27/18 04:50 06/27/18 04:50 PT 13.1 Seconds (9.8-13.1) 06/18/18 05:47 INR 1.2 06/18/18 05:47 APTT 28.9 Seconds (25.6-37.1) 06/18/18 05:47 - Constitutional Appears: Confused, Cachectic, Chronically Ill - Head Exam Head Exam: NORMOCEPHALIC - Eye Exam Eye Exam: absent: Scleral icterus - ENT Exam ENT Exam: Mucous Membranes Dry - Neck Exam Neck Exam: absent: Lymphadenopathy - Respiratory Exam Respiratory Exam: Decreased Breath Sounds - Cardiovascular Exam Cardiovascular Exam: REGULAR RHYTHM - GI/Abdominal Exam GI & Abdominal Exam: Distended, Soft - Rectal Exam Rectal Exam: Deferred - Exam Exam: NORMAL INSPECTION - Extremities Exam Extremities Exam: Pedal Edema - Back Exam Back Exam: absent: CVA tenderness (L), CVA tenderness (R) - Neurological Exam Neurological Exam: Altered Assessment and Plan (1) Acute renal failure Status: Acute (2) Altered mental status Status: Acute (3) Diabetes mellitus Status: Acute (4) HIV (human immunodeficiency virus infection) Status: Acute (5) Pneumonia Status: Acute (6) Encephalopathy Status: Acute - Assessment and Plan (Free Text) Assessment: 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
--- NOTE | 2018-06-27 13:08 | CP.PCM.PN ---
Subjective - Date & Time of Evaluation Date of Evaluation: 06/27/18 Time of Evaluation: 08:50 - Subjective Subjective: F/U Respiratory Failure. intubated,sedated, moving Head, and U/E, no response to verbal stimulation, not following commands Objective - Vital Signs/Intake and Output Vital Signs (last 24 hours): Temp Pulse Resp BP Pulse Ox 99.0 F 88 22 128/67 98 06/27/18 12:00 06/27/18 12:00 06/27/18 12:00 06/27/18 12:00 06/27/18 12:00 Intake and Output: 06/27/18 06/27/18 06:59 18:59 Intake Total 1700 1116 Output Total 1500 Balance 200 1116 - Medications Medications: Current Medications Acetaminophen (Tylenol 325mg Tab) 650 mg PO Q4 PRN PRN Reason: Fever >100.4 F Last Admin: 06/25/18 21:40 Dose: 650 mg Acetaminophen (Tylenol 650 Mg Supp) 650 mg [place] Q6 PRN PRN Reason: Fever >100.4 F Last Admin: 06/20/18 02:30 Dose: 650 mg Acetaminophen (Tylenol 650mg/20.3ml Solution Ud) 650 mg NG Q4 PRN PRN Reason: fever 100.4 or above Dextrose (Dextrose 50% Inj) 0 ml IV STAT PRN; Protocol PRN Reason: Hypoglycemia Protocol Dextrose (Glutose 15) 0 gm PO ONCE PRN; Protocol PRN Reason: Hypoglycemia Protocol Dimethicone (Proshield Plus Skin Protectant) 1 applic TOP Q8 [facility] Last Admin: 06/27/18 08:23 Dose: 1 applic Enoxaparin Sodium (Lovenox) 30 mg SC DAILY [facility]; Protocol Last Admin: 06/17/18 09:20 Dose: 30 mg Famotidine (Pepcid) 20 mg IVP Q12 [facility] Last Admin: 06/27/18 08:25 Dose: 20 mg Glucagon (Glucagen Diagnostic Kit) 0 mg IM STAT PRN; Protocol PRN Reason: Hypoglycemia Protocol Micafungin Sodium 100 mg/ (Sodium Chloride) 100 mls @ 100 mls/hr IVPB DAILY [facility]; Protocol Last Admin: 06/27/18 08:22 Dose: 100 mls/hr Trimethoprim/Sulfamethoxazole (475 mg/ Dextrose) 500 mls @ 250 mls/hr IVPB Q12 [facility] Last Admin: 06/27/18 08:21 Dose: 250 mls/hr Propofol (Diprivan) 1,000 mg in 100 mls @ 1.755 mls/hr IV .Q24H [facility]; Protocol Stop: 06/28/18 10:52 Insulin Human Lispro (Humalog) 0 units SC 0000,0600,1200,1800 [facility]; Protocol Last Admin: 06/27/18 11:54 Dose: 1 units Lamivudine (Epivir) 300 mg PO DAILY [facility]; Protocol Last Admin: 06/27/18 08:21 Dose: 300 mg Methylprednisolone (Solu-Medrol) 40 mg IVP Q12 [facility] Last Admin: 06/27/18 08:23 Dose: 40 mg Morphine Sulfate (Morphine) 2 mg IVP Q6 PRN PRN Reason: Pain, moderate (4-7) Last Admin: 06/27/18 05:34 Dose: 2 mg Nystatin (Nystop Topical Powder) 1 applic TOP TID [facility] Last Admin: 06/27/18 12:41 Dose: 1 applic Raltegravir (Isentress) 400 mg PO BID [facility]; Protocol Last Admin: 06/27/18 08:22 Dose: 400 mg Tenofovir Disoproxil Fumarate (Viread) 300 mg PO DAILY [facility]; Protocol Last Admin: 06/27/18 08:23 Dose: 300 mg - Labs Labs: 06/27/18 04:50 06/27/18 04:50 PT 13.1 Seconds (9.8-13.1) 06/18/18 05:47 INR 1.2 06/18/18 05:47 APTT 28.9 Seconds (25.6-37.1) 06/18/18 05:47 - Constitutional Appears: Chronically Ill - Head Exam Head Exam: NORMAL INSPECTION - Eye Exam Additional comments: Pupils sluggish reaction to light - ENT Exam Additional comments: Intubated. OGT - Neck Exam Neck Exam: Tenderness - Respiratory Exam Respiratory Exam: Decreased Breath Sounds (at bases), Rhonchi - Cardiovascular Exam Cardiovascular Exam: REGULAR RHYTHM - GI/Abdominal Exam GI & Abdominal Exam: Soft, Normal Bowel Sounds - Exam Additional comments: Yang Cath - Extremities Exam Additional comments: Edema BUE - Neurological Exam Additional comments: Intubated, sedated, limited movements Head U/E> L/E, not following commands - Psychiatric Exam Additional comments: Sedated - Skin Skin Exam: Warm Assessment and Plan (1) Respiratory failure Status: Acute (2) Altered mental status Status: Acute (3) HIV (human immunodeficiency virus infection) Status: Acute (4) Fever Status: Acute (5) Pneumonia Status: Acute (6) Severe sepsis Status: Acute (7) Acute renal failure Status: Acute (8) Diabetes mellitus Status: Acute - Assessment and Plan (Free Text) Plan: Neurological status not improving, unable to wean, on PRVC-AC, CT Head and Brain MRI no Acute pathology, Spinal Tap negative EEG edge matter dysfunction, CT Chest and f/u CXR B/L infiltrates, Patient is covered for PCP, empiric Tx for CMV encephalitis, also on HRT, most likely He will need Tracheostomy, discussed with Pt's family to sign consent for Tracheostomy Critical care time: 36 min.
[2018-06-27] MEDS: Propofol 10 mg/ml 1,000 MG/100 ML VIAL IV SCH (13:32)
[2018-06-28] MEDS: Insulin Lispro (humaLOG) 100 Units/ml Inj SC SCH ×4 (00:28→16:59)
[2018-06-28] MEDS: Proshield Plus GEL TOP SCH ×3 (00:31→16:44)
[2018-06-28] MEDS: Propofol 10 mg/ml 1,000 MG/100 ML VIAL IV SCH (04:21)
[2018-06-28 05:27] LABS: HEMOGLOBIN 8.4 g/dL (12.0-18.0); MEAN CELL VOLUME 84.7 fl (80.0-94.0); MEAN CORPUSCULAR HEMOGLOBIN 28.1 pg (27.0-31.0); MEAN CORPUSCULAR HGB CONC 33.2 g/dL (33.0-37.0); RBC 2.97 Mil/uL (4.40-5.90); RED CELL DISTRIBUTION WIDTH 16.3 % (11.5-14.5); WHITE BLOOD COUNT 5.3 K/uL (4.8-10.8)
[2018-06-28 05:32] LABS: ALB/GLOB RATIO 0.9 (1.0-2.1); ALBUMIN 2.5 g/dL (3.5-5.0); ALT/SGPT 40 U/L (21-72); AST/SGOT 27 U/L (17-59); BLOOD UREA NITROGEN 43 mg/dl (9-20); CALCIUM 8.8 mg/dL (8.4-10.2); GFR NON-AFRICAN AMERICAN 51
[2018-06-28 05:36] LABS: ABG ALLEN TEST YES; ARTERIAL BLOOD GAS HCO3 30.3 mmol/L (21-28); ARTERIAL BLOOD GAS HEMOGLOBIN 8.3 g/dL (11.7-17.4); ARTERIAL BLOOD GAS O2 CAPACITY 11.8 mL/dL (16-24); ARTERIAL BLOOD GAS O2 CONTENT 11.7 ML/dL (15-23); ARTERIAL BLOOD GAS PCO2 33 mm/Hg (35-45); ARTERIAL BLOOD GAS PH 7.56 (7.35-7.45); ARTERIAL BLOOD GAS PO2 150 mm/Hg (80-100); ARTERIAL BLOOD GAS TCO2 30.5 mmol/L (22-28)
--- NOTE | 2018-06-28 07:49 | RAD ---
Date of service: 06/28/2018 HISTORY: VENTED COMPARISON: Portable chest 04/26/2019. FINDINGS: LUNGS: Endotracheal and nasogastric tubes are not significantly changed in position well as right PICC. Mixed pattern of reticular infiltrates at the bilateral perihilar/mid lung zones and medial left basilar airspace disease are remarkable only for mild increase at the left perihilar distribution. PLEURA: Trace left pleural effusion is questioned. None is seen at the right. No pneumothorax bilaterally. CARDIOVASCULAR: No aortic atherosclerotic calcification present. Normal cardiac size. No pulmonary vascular congestion. OSSEOUS STRUCTURES: No significant abnormalities. VISUALIZED UPPER ABDOMEN: Normal. OTHER FINDINGS: None. IMPRESSION: Limited increase in reticular infiltrate left perihilar region with reticular infiltrates otherwise unchanged as well as left basilar airspace disease. Trace of pleural effusion again evident.
[2018-06-28] MEDS: Micafungin 100 MG in Sodium Chloride 0.9% 100 ML IVPB SCH (08:17)
[2018-06-28] MEDS: MethylPREDNISolone 40 mg Vial IVP SCH ×2 (08:25→21:36)
--- NOTE | 2018-06-28 09:51 | CP.PCM.PN ---
Subjective - Date & Time of Evaluation Date of Evaluation: 06/28/18 Time of Evaluation: 09:51 - Subjective Subjective: Patient remain on respirator And restless and not communicating Objective - Vital Signs/Intake and Output Vital Signs (last 24 hours): Temp Pulse Resp BP Pulse Ox 99.1 F 88 20 160/85 H 98 06/28/18 08:00 06/28/18 08:00 06/28/18 08:00 06/28/18 08:00 06/28/18 08:00 Intake and Output: 06/28/18 06/28/18 06:59 18:59 Intake Total 1302 123 Output Total 1999 Balance -698 123 - Medications Medications: Current Medications Acetaminophen (Tylenol 325mg Tab) 650 mg PO Q4 PRN PRN Reason: Fever >100.4 F Last Admin: 06/25/18 21:40 Dose: 650 mg Acetaminophen (Tylenol 650 Mg Supp) 650 mg [place] Q6 PRN PRN Reason: Fever >100.4 F Last Admin: 06/20/18 02:30 Dose: 650 mg Acetaminophen (Tylenol 650mg/20.3ml Solution Ud) 650 mg NG Q4 PRN PRN Reason: fever 100.4 or above Dextrose (Dextrose 50% Inj) 0 ml IV STAT PRN; Protocol PRN Reason: Hypoglycemia Protocol Dextrose (Glutose 15) 0 gm PO ONCE PRN; Protocol PRN Reason: Hypoglycemia Protocol Dimethicone (Proshield Plus Skin Protectant) 1 applic TOP Q8 [facility] Last Admin: 06/28/18 08:19 Dose: 1 applic Enoxaparin Sodium (Lovenox) 30 mg SC DAILY [facility]; Protocol Last Admin: 06/17/18 09:20 Dose: 30 mg Famotidine (Pepcid) 20 mg IVP Q12 [facility] Last Admin: 06/28/18 08:24 Dose: 20 mg Glucagon (Glucagen Diagnostic Kit) 0 mg IM STAT PRN; Protocol PRN Reason: Hypoglycemia Protocol Micafungin Sodium 100 mg/ (Sodium Chloride) 100 mls @ 100 mls/hr IVPB DAILY [facility]; Protocol Last Admin: 06/28/18 08:17 Dose: 100 mls/hr Trimethoprim/Sulfamethoxazole (475 mg/ Dextrose) 500 mls @ 250 mls/hr IVPB Q12 [facility] Last Admin: 06/27/18 20:14 Dose: 250 mls/hr Propofol (Diprivan) 1,000 mg in 100 mls @ 1.755 mls/hr IV .Q24H [facility]; Protocol Stop: 06/28/18 10:52 Last Titration: 06/28/18 08:20 Dose: 15 mcg/kg/min, 5.266 mls/hr Ganciclovir 250 mg/ Sodium (Chloride) 100 mls @ 100 mls/hr IV Q12 [facility]; Protocol Insulin Human Lispro (Humalog) 0 units SC 0000,0600,1200,1800 [facility]; Protocol Last Admin: 06/28/18 05:52 Dose: 2 units Lamivudine (Epivir) 300 mg PO DAILY [facility]; Protocol Last Admin: 06/28/18 08:27 Dose: 300 mg Methylprednisolone (Solu-Medrol) 40 mg IVP Q12 [facility] Last Admin: 06/28/18 08:25 Dose: 40 mg Morphine Sulfate (Morphine) 2 mg IVP Q6 PRN PRN Reason: Pain, moderate (4-7) Last Admin: 06/27/18 05:34 Dose: 2 mg Nystatin (Nystop Topical Powder) 1 applic TOP TID [facility] Last Admin: 06/28/18 08:22 Dose: 1 applic Raltegravir (Isentress) 400 mg PO BID [facility]; Protocol Last Admin: 06/28/18 08:26 Dose: 400 mg Tenofovir Disoproxil Fumarate (Viread) 300 mg PO DAILY [facility]; Protocol Last Admin: 06/28/18 08:25 Dose: 300 mg - Labs Labs: 06/28/18 04:30 06/28/18 04:30 PT 13.1 Seconds (9.8-13.1) 06/18/18 05:47 INR 1.2 06/18/18 05:47 APTT 28.9 Seconds (25.6-37.1) 06/18/18 05:47 - Constitutional Appears: No Acute Distress - Eye Exam Eye Exam: Conjunctival injection - ENT Exam ENT Exam: Mucous Membranes Moist - Respiratory Exam Respiratory Exam: Rales, Rhonchi. absent: Chest Wall Tenderness - GI/Abdominal Exam GI & Abdominal Exam: Soft, Normal Bowel Sounds - Extremities Exam Extremities Exam: absent: Calf Tenderness - Back Exam Back Exam: absent: CVA tenderness (L), CVA tenderness (R) - Neurological Exam Neurological Exam: Altered - Psychiatric Exam Psychiatric exam: Flat Affect - Skin Skin Exam: absent: Cyanosis Assessment and Plan (1) Acute renal failure Assessment & Plan: Acute renal failure related to HIV or sepsis or combination Sepsis Encephalopathy Respiratory failure Hyperkalemia Plan Kidney function continued to improve with serum creatinine 1.4 Status post spinal tap 0n 06/18 Continue gentle hydration Kidney function stable for now Patient on multiple antibiotics to keep watching kidney function and the dose of the antibiotics as per GFR, potassium still in the high normal 5.3 Keep our eye on kidney function patient may be going into acute kidney injury again from this multiple antibiotics? As per primary team and intensive care unit Status: Acute (2) HIV (human immunodeficiency virus infection) Status: Acute
--- NOTE | 2018-06-28 13:55 | CP.CCUPN ---
CCU Subjective - Physician Review Subjective (Free Text): Intermittently agitated and moving head to-and-fro, but not in a disturbing fashion in regards to the care environment, so far tolerated SBT on CPAP 5 PS 10 with RR 21, Ve= 9.0 and RSBI at 44. Will look in my direction and make eye contact nut does not make any effort at communication nor comprehension of commands- all despite being on Propofol at 15 mcg dose. Afebrile with T 99F now, no fever spikes, SBPs 120 -130s, HR 90, 24, 100% SPO2; fluid balance last 24H= negative 0.89L. No other distress noted. ROS: Other 12 system ROS unobtainable due agitation and oral intubation. Other PMSFH: All other Nursing and physician documentation reviewed to date; no new pertinent info noted relevant to current medical problems. EXAM- HEENT: no icterus, pupils equal, 3 mm and reactive, no nystagmus NECK: no visible JVD, supple, carotids equal upstroke bilat/no bruits CHEST: decreased BS bases, no wheezes audible HEART: regular, distant, non-tachy S1S2, no murmur audible, no rubs. ABD: soft, no increased distention, no focal tenderness, BS hypoactive, EXT: +edema, no peripheral/ digital cyanosis, no calf tenderness or palpable cords, distal pulses intact and symmetrical. RUE PICC. NEURO: withdraws all extremities to pain, tone decreased. SKIN: no rashes LABS: WBC= 5.3 HGB= 8.4 PLTs = 210K 7.56/33/150 Na= 134 K= 4.9 Cl= 95 HCO3= 28 BUN/Cr= 43/1.4 BS= 235 CXR: (my interp)- ETT position OK above cassie, no new gross consolidation, pn eumonic changes appear slightly improved, small left effusion. IMPRESSION / MAJOR PROBLEMS NOW: Major multi-system organ insufficiency / Failure- 1. Acute Hypoxemic Resp Failure 2 Pneumonia (etiology undetermined: possible PCP, atypical, other opportunistic pneumonitis, r/o Pulm TB) 2. AMS, r/o LOCK ASSEMBLER infection, other toxic/metabolic encephalopathy, vs other possible LOCK ASSEMBLER manifestations of AIDs. 3. New HIV+ 4. Azotemia / Dehydration with Hyperkalemia 5. Chronic Disease Anemia PLAN: 1. Day # 11 on MV, expect good tolerance for extubation trial today or tomorrow. 2. Decrease sedation a bit. 3. Ongoing empiric abx coverage noted: Azithro/ Micafungin / Bactrim. On HAART meds also. No definitive new organisms isolated except for Yeast in sputum, may have been oral contamination as well. FOB was never done, cancelled 2 previous instability. 4. Repeat CT brain imagings x 3 done and all negative for any new changes. LP done Jun 18, no clear etiological results. EEG negative for seizures. 5. Watch for Delirium, consider switch to Precedex if HR tolerates.
[2018-06-28] MEDS: SULFAMETHOXAZOLE IVPB SCH (14:19)
[2018-06-28] MEDS: WATER IVPB SCH (14:19)
[2018-06-28] MEDS: TRIMETHOPRIM IVPB SCH (14:19)
[2018-06-28] MEDS: DEXTROSE 5% IVPB SCH (14:19)
--- NOTE | 2018-06-28 17:09 | CP.PCM.PCO ---
Physician Communication Note - Physician Communication Note Physician Communication Note: Diagnosed with CMV proctitis in 2018 @ [facility] - Gancyclovir added
--- NOTE | 2018-06-28 17:57 | CP.PCM.PN ---
Subjective - Date & Time of Evaluation Date of Evaluation: 06/28/18 Time of Evaluation: 11:50 - Subjective Subjective: F/U respiratory failure intubated, sedated on Diprivan, OGT Nephro, restless, eyes open, not following commands, head and U/E movements Objective - Vital Signs/Intake and Output Vital Signs (last 24 hours): Temp Pulse Resp BP Pulse Ox 99.5 F 84 16 135/72 96 06/28/18 16:00 06/28/18 17:00 06/28/18 17:00 06/28/18 17:00 06/28/18 17:00 Intake and Output: 06/28/18 06/28/18 06:59 18:59 Intake Total 1302 1293 Output Total 1999 Balance -698 1293 - Medications Medications: Current Medications Acetaminophen (Tylenol 325mg Tab) 650 mg PO Q4 PRN PRN Reason: Fever >100.4 F Last Admin: 06/25/18 21:40 Dose: 650 mg Acetaminophen (Tylenol 650 Mg Supp) 650 mg [place] Q6 PRN PRN Reason: Fever >100.4 F Last Admin: 06/20/18 02:30 Dose: 650 mg Acetaminophen (Tylenol 650mg/20.3ml Solution Ud) 650 mg NG Q4 PRN PRN Reason: fever 100.4 or above Dextrose (Dextrose 50% Inj) 0 ml IV STAT PRN; Protocol PRN Reason: Hypoglycemia Protocol Dextrose (Glutose 15) 0 gm PO ONCE PRN; Protocol PRN Reason: Hypoglycemia Protocol Dimethicone (Proshield Plus Skin Protectant) 1 applic TOP Q8 [facility] Last Admin: 06/28/18 16:44 Dose: 1 applic Enoxaparin Sodium (Lovenox) 30 mg SC DAILY [facility]; Protocol Last Admin: 06/17/18 09:20 Dose: 30 mg Famotidine (Pepcid) 20 mg IVP Q12 [facility] Last Admin: 06/28/18 08:24 Dose: 20 mg Glucagon (Glucagen Diagnostic Kit) 0 mg IM STAT PRN; Protocol PRN Reason: Hypoglycemia Protocol Micafungin Sodium 100 mg/ (Sodium Chloride) 100 mls @ 100 mls/hr IVPB DAILY [facility]; Protocol Last Admin: 06/28/18 08:17 Dose: 100 mls/hr Trimethoprim/Sulfamethoxazole (475 mg/ Dextrose) 500 mls @ 250 mls/hr IVPB Q12 [facility] Last Admin: 06/28/18 14:19 Dose: 250 mls/hr Ganciclovir 250 mg/ Sodium (Chloride) 100 mls @ 100 mls/hr IV Q12 [facility]; Protocol Last Admin: 06/28/18 11:48 Dose: 100 mls/hr Insulin Human Lispro (Humalog) 0 units SC 0000,0600,1200,1800 [facility]; Protocol Last Admin: 06/28/18 16:59 Dose: 2 units Lamivudine (Epivir) 300 mg PO DAILY [facility]; Protocol Last Admin: 06/28/18 08:27 Dose: 300 mg Methylprednisolone (Solu-Medrol) 40 mg IVP Q12 [facility] Last Admin: 06/28/18 08:25 Dose: 40 mg Morphine Sulfate (Morphine) 2 mg IVP Q6 PRN PRN Reason: Pain, moderate (4-7) Last Admin: 06/27/18 05:34 Dose: 2 mg Nystatin (Nystop Topical Powder) 1 applic TOP TID [facility] Last Admin: 06/28/18 16:42 Dose: 1 applic Raltegravir (Isentress) 400 mg PO BID [facility]; Protocol Last Admin: 06/28/18 16:42 Dose: 400 mg Tenofovir Disoproxil Fumarate (Viread) 300 mg PO DAILY [facility]; Protocol Last Admin: 06/28/18 08:25 Dose: 300 mg - Labs Labs: 06/28/18 04:30 06/28/18 04:30 PT 13.1 Seconds (9.8-13.1) 06/18/18 05:47 INR 1.2 06/18/18 05:47 APTT 28.9 Seconds (25.6-37.1) 06/18/18 05:47 - Constitutional Appears: Chronically Ill - Head Exam Head Exam: NORMAL INSPECTION - Eye Exam Additional comments: Pupils sluggish reaction to light - ENT Exam Additional comments: Intubated, NGT - Neck Exam Neck Exam: Normal Inspection - Respiratory Exam Respiratory Exam: Decreased Breath Sounds (t bases), Rhonchi (at bases) - Cardiovascular Exam Cardiovascular Exam: REGULAR RHYTHM - GI/Abdominal Exam GI & Abdominal Exam: Soft, Normal Bowel Sounds - Exam Additional comments: Yang cath - Extremities Exam Additional comments: Edema BUE - Neurological Exam Additional comments: Intubated, unable to follows commands, restless, movements with head and extremities. 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
[2018-06-29] MEDS: Insulin Lispro (humaLOG) 100 Units/ml Inj SC SCH ×5 (00:29→17:28)
[2018-06-29] MEDS: Proshield Plus GEL TOP SCH ×3 (01:30→17:29)
[2018-06-29] MEDS: TRIMETHOPRIM IVPB SCH ×2 (02:45→14:09)
[2018-06-29] MEDS: SULFAMETHOXAZOLE IVPB SCH ×2 (02:45→14:09)
[2018-06-29] MEDS: WATER IVPB SCH ×2 (02:45→14:09)
[2018-06-29] MEDS: DEXTROSE 5% IVPB SCH ×2 (02:45→14:09)
[2018-06-29 04:07] LABS: ABG ALLEN TEST YES; ARTERIAL BLOOD GAS HCO3 28.6 mmol/L (21-28); ARTERIAL BLOOD GAS HEMOGLOBIN 8.6 g/dL (11.7-17.4); ARTERIAL BLOOD GAS O2 CAPACITY 11.9 mL/dL (16-24); ARTERIAL BLOOD GAS O2 CONTENT 11.9 ML/dL (15-23); ARTERIAL BLOOD GAS O2 SAT 100.1 % (95-98); ARTERIAL BLOOD GAS PCO2 36 mm/Hg (35-45); ARTERIAL BLOOD GAS PO2 93 mm/Hg (80-100); ARTERIAL BLOOD GAS TCO2 29.2 mmol/L (22-28)
[2018-06-29 05:33] LABS: HEMOGLOBIN 8.6 g/dL (12.0-18.0); MEAN CORPUSCULAR HEMOGLOBIN 27.8 pg (27.0-31.0); MEAN CORPUSCULAR HGB CONC 32.3 g/dL (33.0-37.0); RBC 3.11 Mil/uL (4.40-5.90); RED CELL DISTRIBUTION WIDTH 16.7 % (11.5-14.5); WHITE BLOOD COUNT 5.2 K/uL (4.8-10.8)
[2018-06-29 05:51] LABS: ALB/GLOB RATIO 0.9 (1.0-2.1); ALBUMIN 2.4 g/dL (3.5-5.0); ALT/SGPT 47 U/L (21-72); AST/SGOT 34 U/L (17-59); BLOOD UREA NITROGEN 38 mg/dl (9-20); CALCIUM 8.5 mg/dL (8.4-10.2); GFR NON-AFRICAN AMERICAN 51
[2018-06-29] MEDS: MethylPREDNISolone 40 mg Vial IVP SCH ×2 (08:51→21:36)
[2018-06-29] MEDS: Micafungin 100 MG in Sodium Chloride 0.9% 100 ML IVPB SCH (08:54)
--- NOTE | 2018-06-29 10:06 | CP.PCM.PN ---
Subjective - Date & Time of Evaluation Date of Evaluation: 06/29/18 Time of Evaluation: 09:35 - Subjective Subjective: Patient remain intubated. Moving his head Vital signs noted Objective - Vital Signs/Intake and Output Vital Signs (last 24 hours): Temp Pulse Resp BP Pulse Ox 98.8 F 75 18 126/68 99 06/29/18 08:00 06/29/18 08:00 06/29/18 08:00 06/29/18 08:00 06/29/18 08:00 Intake and Output: 06/29/18 06/29/18 06:59 18:59 Intake Total 1214 Output Total 2150 Balance -936 - Medications Medications: Current Medications Acetaminophen (Tylenol 325mg Tab) 650 mg PO Q4 PRN PRN Reason: Fever >100.4 F Last Admin: 06/25/18 21:40 Dose: 650 mg Acetaminophen (Tylenol 650 Mg Supp) 650 mg [place] Q6 PRN PRN Reason: Fever >100.4 F Last Admin: 06/20/18 02:30 Dose: 650 mg Acetaminophen (Tylenol 650mg/20.3ml Solution Ud) 650 mg NG Q4 PRN PRN Reason: fever 100.4 or above Dextrose (Dextrose 50% Inj) 0 ml IV STAT PRN; Protocol PRN Reason: Hypoglycemia Protocol Dextrose (Glutose 15) 0 gm PO ONCE PRN; Protocol PRN Reason: Hypoglycemia Protocol Dimethicone (Proshield Plus Skin Protectant) 1 applic TOP Q8 [facility] Last Admin: 06/29/18 08:51 Dose: 1 applic Enoxaparin Sodium (Lovenox) 30 mg SC DAILY [facility]; Protocol Last Admin: 06/17/18 09:20 Dose: 30 mg Famotidine (Pepcid) 20 mg IVP Q12 [facility] Last Admin: 06/28/18 21:35 Dose: 20 mg Glucagon (Glucagen Diagnostic Kit) 0 mg IM STAT PRN; Protocol PRN Reason: Hypoglycemia Protocol Micafungin Sodium 100 mg/ (Sodium Chloride) 100 mls @ 100 mls/hr IVPB DAILY [facility]; Protocol Last Admin: 06/29/18 08:54 Dose: 100 mls/hr Trimethoprim/Sulfamethoxazole (475 mg/ Dextrose) 500 mls @ 250 mls/hr IVPB Q12@0200,1400 [facility] Last Admin: 06/29/18 02:45 Dose: 250 mls/hr Ganciclovir 250 mg/ Sodium (Chloride) 100 mls @ 100 mls/hr IV Q12@0000,1200 [facility]; Protocol Last Admin: 06/29/18 00:18 Dose: 100 mls/hr Insulin Human Lispro (Humalog) 0 units SC 0000,0600,1200,1800 [facility]; Protocol Last Admin: 06/29/18 07:00 Dose: 3 units Lamivudine (Epivir) 300 mg PO DAILY [facility]; Protocol Last Admin: 06/29/18 08:53 Dose: 300 mg Methylprednisolone (Solu-Medrol) 40 mg IVP Q12 [facility] Last Admin: 06/29/18 08:51 Dose: 40 mg Morphine Sulfate (Morphine) 2 mg IVP Q6 PRN PRN Reason: Pain, moderate (4-7) Last Admin: 06/27/18 05:34 Dose: 2 mg Nystatin (Nystop Topical Powder) 1 applic TOP TID [facility] Last Admin: 06/29/18 08:52 Dose: 1 applic Raltegravir (Isentress) 400 mg PO BID [facility]; Protocol Last Admin: 06/29/18 08:53 Dose: 400 mg Tenofovir Disoproxil Fumarate (Viread) 300 mg PO DAILY [facility]; Protocol Last Admin: 06/29/18 08:52 Dose: 300 mg - Labs Labs: 06/29/18 04:50 06/29/18 04:50 PT 13.1 Seconds (9.8-13.1) 06/18/18 05:47 INR 1.2 06/18/18 05:47 APTT 28.9 Seconds (25.6-37.1) 06/18/18 05:47 Assessment and Plan (1) Acute renal failure Assessment & Plan: Acute renal failure related to HIV or sepsis or combination Sepsis Encephalopathy Respiratory failure Hyperkalemia Plan Kidney function stable Hyponatremia serum sodium 134 please mix all IV antibiotics was normal saline to avoid further hyponatremia As per ICU team and infectious disease with multiple antibiotics monitoring Status: Acute (2) HIV (human immunodeficiency virus infection) Status: Acute
--- NOTE | 2018-06-29 10:52 | CP.CCUPN ---
CCU Subjective - Physician Review Subjective (Free Text): Tolerated sedation holiday and SBT simultaneously for only 30 minutes before becoming increasingly agitated and tachypneic up to RR 30s, then returned back to AC mode. He still does not demonstrate any signs or signals of comprehending simple commands, but looks at me and at family members during their attempts at conversing with him. Afebrile with no fever spikes, SBPs 110-120s, HR 70s, 24, 100% SPO2; fluid balance last 24H= negative 0.55L. No other distress noted. ROS: Other 12 system ROS unobtainable due agitation and oral intubation. Other PMSFH: All other Nursing and physician documentation reviewed to date; no new pertinent info noted relevant to current medical problems. EXAM- HEENT: no icterus, pupils equal, 3 mm and reactive, no nystagmus NECK: no visible JVD, supple, carotids equal upstroke bilat/no bruits CHEST: decreased BS bases, no wheezes audible HEART: regular, distant, non-tachy S1S2, no murmur audible, no rubs. ABD: soft, no increased distention, no focal tenderness, BS hypoactive, EXT: +edema, no peripheral/ digital cyanosis, no calf tenderness or palpable cords, distal pulses intact and symmetrical. RUE PICC. NEURO: withdraws all extremities to pain, tone decreased. SKIN: no rashes LABS: WBC= 5.2 HGB= 8.6 PLTs = 233K 7.50/36/93 Na= 134 K= 4.8 Cl= 94 HCO3= 29 BUN/Cr= 38/1.4 BS= 335 CXR: (my interp)- ETT position OK above cassie, interstitial changes appear worse today., left worse than R. IMPRESSION / MAJOR PROBLEMS NOW: Major multi-system organ insufficiency / Failure- 1. Acute Hypoxemic Resp Failure 2 Pneumonia (etiology undetermined: possible PCP, atypical, other opportunistic pneumonitis, r/o Pulm TB)- one AFB smear negative. 2. AMS, r/o LOKIE ENGINEER infection, other toxic/metabolic encephalopathy, vs other possible LOKIE ENGINEER manifestations of AIDs. 3. New HIV+ 4. Azotemia / Dehydration with Hyperkalemia 5. Chronic Disease Anemia PLAN: 1. Day # 12 on MV, will try another SBT in a few hours after resting patient on AC mode. Family is agreeable to trach if unweanable over the next few days. 2. Decrease sedation a bit. 3. Ongoing empiric abx / Antifungal and antiviral coverage noted: Azithro/ Micafungin / Bactrim Gancyclovir. On HAART meds also. 4. Repeat CT brain x 3 done and all negative for any new changes. LP done Jun 18, no clear etiological results. EEG negative for seizures. ?? HIV Encephalopathy?? 5. Full code as per family and HCP / POA.
[2018-06-29 12:33] LABS: SOURCE: Plasma
--- NOTE | 2018-06-29 12:42 | RAD ---
Date of service: 06/29/2018 HISTORY: Pt intubated COMPARISON: 06/28/2018 FINDINGS: LUNGS: Increasing bilateral upper lobe ground-glass opacity. Evaluation somewhat limited due to oblique positioning. PLEURA: No significant pleural effusion identified, no pneumothorax apparent. CARDIOVASCULAR: No aortic atherosclerotic calcification present. Normal cardiac size. No congestive change. ET tube and NG tube unchanged. Right PICC catheter terminates in the superior vena cava at the level of the cavoatrial junction. OSSEOUS STRUCTURES: No significant abnormalities. VISUALIZED UPPER ABDOMEN: Normal. OTHER FINDINGS: None. IMPRESSION: Increasing ground-glass opacity in both upper lobes. Nonspecific. Possible pneumonia. Rule out interstitial pulmonary edema.
[2018-06-29] MEDS: Propofol 10 mg/ml 1,000 MG/100 ML VIAL IV SCH (13:26)
--- NOTE | 2018-06-29 14:46 | CP.PCM.PN ---
Subjective - Date & Time of Evaluation Date of Evaluation: 06/29/18 Time of Evaluation: 12:00 - Subjective Subjective: F/U Respiratory failure Pt with eyes open, moving with the head, some movements open extremities, on restrain, intubated on PRVC AC 40. Objective - Vital Signs/Intake and Output Vital Signs (last 24 hours): Temp Pulse Resp BP Pulse Ox 98.8 F 67 16 107/77 99 06/29/18 12:00 06/29/18 14:00 06/29/18 14:00 06/29/18 14:00 06/29/18 14:00 Intake and Output: 06/29/18 06/29/18 06:59 18:59 Intake Total 1214 620 Output Total 2150 1010 Balance -936 -390 - Medications Medications: Current Medications Acetaminophen (Tylenol 325mg Tab) 650 mg PO Q4 PRN PRN Reason: Fever >100.4 F Last Admin: 06/25/18 21:40 Dose: 650 mg Acetaminophen (Tylenol 650 Mg Supp) 650 mg [place] Q6 PRN PRN Reason: Fever >100.4 F Last Admin: 06/20/18 02:30 Dose: 650 mg Acetaminophen (Tylenol 650mg/20.3ml Solution Ud) 650 mg NG Q4 PRN PRN Reason: fever 100.4 or above Dextrose (Dextrose 50% Inj) 0 ml IV STAT PRN; Protocol PRN Reason: Hypoglycemia Protocol Dextrose (Glutose 15) 0 gm PO ONCE PRN; Protocol PRN Reason: Hypoglycemia Protocol Dimethicone (Proshield Plus Skin Protectant) 1 applic TOP Q8 [facility] Last Admin: 06/29/18 08:51 Dose: 1 applic Enoxaparin Sodium (Lovenox) 30 mg SC DAILY [facility]; Protocol Last Admin: 06/17/18 09:20 Dose: 30 mg Famotidine (Pepcid) 20 mg IVP Q12 [facility] Last Admin: 06/29/18 09:00 Dose: 20 mg Glucagon (Glucagen Diagnostic Kit) 0 mg IM STAT PRN; Protocol PRN Reason: Hypoglycemia Protocol Micafungin Sodium 100 mg/ (Sodium Chloride) 100 mls @ 100 mls/hr IVPB DAILY [facility]; Protocol Last Admin: 06/29/18 08:54 Dose: 100 mls/hr Trimethoprim/Sulfamethoxazole (475 mg/ Dextrose) 500 mls @ 250 mls/hr IVPB Q12@0200,1400 [facility] Last Admin: 06/29/18 14:09 Dose: 250 mls/hr Ganciclovir 250 mg/ Sodium (Chloride) 100 mls @ 100 mls/hr IV Q12@0000,1200 [facility] ; Protocol Last Admin: 06/29/18 13:00 Dose: 100 mls/hr Propofol (Diprivan) 1,000 mg in 100 mls @ 5.021 mls/hr IV .[id number] [facility]; Protocol Stop: 06/30/18 13:08 Last Admin: 06/29/18 13:26 Dose: 15 mcg/kg/min, 5.021 mls/hr Insulin Human Lispro (Humalog) 0 units SC 0000,0600,1200,1800 [facility]; Protocol Last Admin: 06/29/18 12:40 Dose: Not Given Lamivudine (Epivir) 300 mg PO DAILY [facility]; Protocol Last Admin: 06/29/18 08:53 Dose: 300 mg Methylprednisolone (Solu-Medrol) 40 mg IVP Q12 [facility] Last Admin: 06/29/18 08:51 Dose: 40 mg Morphine Sulfate (Morphine) 2 mg IVP Q6 PRN PRN Reason: Pain, moderate (4-7) Last Admin: 06/27/18 05:34 Dose: 2 mg Nystatin (Nystop Topical Powder) 1 applic TOP TID [facility] Last Admin: 06/29/18 13:03 Dose: 1 applic Raltegravir (Isentress) 400 mg PO BID [facility]; Protocol Last Admin: 06/29/18 08:53 Dose: 400 mg Tenofovir Disoproxil Fumarate (Viread) 300 mg PO DAILY [facility]; Protocol Last Admin: 06/29/18 08:52 Dose: 300 mg - Labs Labs: 06/29/18 04:50 06/29/18 04:50 PT 13.1 Seconds (9.8-13.1) 06/18/18 05:47 INR 1.2 06/18/18 05:47 APTT 28.9 Seconds (25.6-37.1) 06/18/18 05:47 - Constitutional Appears: Chronically Ill - Head Exam Head Exam: NORMAL INSPECTION - Eye Exam Additional comments: Pupils sluggish reaction to light - ENT Exam Additional comments: Intubated, OGT - Respiratory Exam Respiratory Exam: Decreased Breath Sounds (at bases), Rhonchi (at bases) - Cardiovascular Exam Cardiovascular Exam: REGULAR RHYTHM - GI/Abdominal Exam GI & Abdominal Exam: Soft, Normal Bowel Sounds - Exam Additional comments: Yang Cath - Extremities Exam Additional comments: Edema BUE. - Neurological Exam Additional comments: Intubated, sedated, unable to follow commands, restless movements with head and extremities. - Skin Skin Exam: Warm Assessment and Plan (1) Respiratory failure Status: Acute (2) Altered mental status Status: Acute (3) HIV (human immunodeficiency virus infection) Status: Acute (4) Fever Status: Acute (5) Pneumonia Status: Acute (6) Severe sepsis Status: Acute (7) Acute renal failure Status: Acute (8) Diabetes mellitus Status: Acute - Assessment and Plan (Free Text) Plan: Discussed with Dr Wick, Triage Licensed Practical Nurse, attempted of weaning early in AM, CPAP failure, Pt went back to [facility]. Plan to have Tracheostomy, get Surgical consult. Continue Deprivan, Epivir, Ganciclovir, Morphine, Solu-Medrol and rest of tx. Critical care time: 31 min.
--- NOTE | 2018-06-29 15:17 | CP.PCM.PN ---
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 GANCYCLOVIR WILL LIKELY NEED TRACH AND PEG Objective - Vital Signs/Intake and Output Vital Signs (last 24 hours): Temp Pulse Resp BP Pulse Ox 98.8 F 67 16 107/77 99 06/29/18 12:00 06/29/18 14:00 06/29/18 14:00 06/29/18 14:00 06/29/18 14:00 Intake and Output: 06/29/18 06/29/18 06:59 18:59 Intake Total 1214 620 Output Total 2150 1010 Balance -936 -390 - Medications Medications: Current Medications Acetaminophen (Tylenol 325mg Tab) 650 mg PO Q4 PRN PRN Reason: Fever >100.4 F Last Admin: 06/25/18 21:40 Dose: 650 mg Acetaminophen (Tylenol 650 Mg Supp) 650 mg CO Q6 PRN PRN Reason: Fever >100.4 F Last Admin: 06/20/18 02:30 Dose: 650 mg Acetaminophen (Tylenol 650mg/20.3ml Solution Ud) 650 mg NG Q4 PRN PRN Reason: fever 100.4 or above Dextrose (Dextrose 50% Inj) 0 ml IV STAT PRN; Protocol PRN Reason: Hypoglycemia Protocol Dextrose (Glutose 15) 0 gm PO ONCE PRN; Protocol PRN Reason: Hypoglycemia Protocol Dimethicone (Proshield Plus Skin Protectant) 1 applic TOP Q8 [facility] Last Admin: 06/29/18 08:51 Dose: 1 applic Enoxaparin Sodium (Lovenox) 30 mg SC DAILY [facility]; Protocol Last Admin: 06/17/18 09:20 Dose: 30 mg Famotidine (Pepcid) 20 mg IVP Q12 [facility] Last Admin: 06/29/18 09:00 Dose: 20 mg Glucagon (Glucagen Diagnostic Kit) 0 mg IM STAT PRN; Protocol PRN Reason: Hypoglycemia Protocol Micafungin Sodium 100 mg/ (Sodium Chloride) 100 mls @ 100 mls/hr IVPB DAILY [facility]; Protocol Last Admin: 06/29/18 08:54 Dose: 100 mls/hr Trimethoprim/Sulfamethoxazole (475 mg/ Dextrose) 500 mls @ 250 mls/hr IVPB Q12@0200,1400 [facility] Last Admin: 06/29/18 14:09 Dose: 250 mls/hr Ganciclovir 250 mg/ Sodium (Chloride) 100 mls @ 100 mls/hr IV Q12@0000,1200 [facility]; Protocol Last Admin: 06/29/18 13:00 Dose: 100 mls/hr Propofol (Diprivan) 1,000 mg in 100 mls @ 5.021 mls/hr IV .[id number] [facility]; Protoc ol Stop: 06/30/18 13:08 Last Admin: 06/29/18 13:26 Dose: 15 mcg/kg/min, 5.021 mls/hr Insulin Human Lispro (Humalog) 0 units SC 0000,0600,1200,1800 [facility]; Protocol Last Admin: 06/29/18 12:40 Dose: Not Given Lamivudine (Epivir) 300 mg PO DAILY [facility]; Protocol Last Admin: 06/29/18 08:53 Dose: 300 mg Methylprednisolone (Solu-Medrol) 40 mg IVP Q12 [facility] Last Admin: 06/29/18 08:51 Dose: 40 mg Morphine Sulfate (Morphine) 2 mg IVP Q6 PRN PRN Reason: Pain, moderate (4-7) Last Admin: 06/27/18 05:34 Dose: 2 mg Nystatin (Nystop Topical Powder) 1 applic TOP TID [facility] Last Admin: 06/29/18 13:03 Dose: 1 applic Raltegravir (Isentress) 400 mg PO BID [facility]; Protocol Last Admin: 06/29/18 08:53 Dose: 400 mg Tenofovir Disoproxil Fumarate (Viread) 300 mg PO DAILY [facility]; Protocol Last Admin: 06/29/18 08:52 Dose: 300 mg - Labs Labs: 06/29/18 04:50 06/29/18 04:50 PT 13.1 Seconds (9.8-13.1) 06/18/18 05:47 INR 1.2 06/18/18 05:47 APTT 28.9 Seconds (25.6-37.1) 06/18/18 05:47 - Constitutional Appears: Confused, Cachectic, Chronically Ill - Head Exam Head Exam: NORMOCEPHALIC - Eye Exam Eye Exam: absent: Scleral icterus - ENT Exam ENT Exam: Mucous Membranes Dry. absent: Normal Oropharynx Additional comments: ETT + - Neck Exam Neck Exam: absent: Lymphadenopathy - Respiratory Exam Respiratory Exam: Decreased Breath Sounds, Prolonged Expiratory Phase, Rhonchi - Cardiovascular Exam Cardiovascular Exam: REGULAR RHYTHM, +S1, +S2 - GI/Abdominal Exam GI & Abdominal Exam: Distended, Soft. absent: Tenderness - Rectal Exam Rectal Exam: Deferred - Exam Exam: NORMAL INSPECTION - Extremities Exam Extremities Exam: absent: Pedal Edema - Back Exam Back Exam: absent: CVA tenderness (L), CVA tenderness (R) - Neurological Exam Neurological Exam: Altered - Psychiatric Exam Psychiatric exam: Depressed - Skin Skin Exam: Dry Assessment and Plan (1) Acute renal failure Status: Acute (2) Altered mental status Status: Acute (3) Diabetes mellitus Status: Acute (4) HIV (human immunodeficiency virus infection) Status: Acute (5) Pneumonia Status: Acute (6) Encephalopathy Status: Acute (7) CMV (cytomegalovirus) infection Status: Acute - Assessment and Plan (Free Text) Assessment: POSSIBLE CMV ENCEPHALITIS- MRI DONE WITHOUT CONTRAST CONSIDER CONTRAST CT IV GANCYCLOVIR IN PROGRESS CONT HAART RX
[2018-06-29] MEDS ORDERED: methylPREDNISolone 20 MG in Sodium Chloride 0.9% 50 ML IV SCH (15:30)
[2018-06-30] MEDS: Insulin Lispro (humaLOG) 100 Units/ml Inj SC SCH ×4 (02:14→18:03)
[2018-06-30] MEDS: WATER IVPB SCH ×2 (02:23→13:37)
[2018-06-30] MEDS: TRIMETHOPRIM IVPB SCH ×2 (02:23→13:37)
[2018-06-30] MEDS: SULFAMETHOXAZOLE IVPB SCH ×2 (02:23→13:37)
[2018-06-30] MEDS: DEXTROSE 5% IVPB SCH ×2 (02:23→13:37)
[2018-06-30] MEDS: Proshield Plus GEL TOP SCH ×3 (02:24→16:21)
[2018-06-30 04:48] LABS: ABG ALLEN TEST YES; ARTERIAL BLOOD GAS HCO3 27.4 mmol/L (21-28); ARTERIAL BLOOD GAS O2 CAPACITY 11.4 mL/dL (16-24); ARTERIAL BLOOD GAS O2 CONTENT 11.3 ML/dL (15-23); ARTERIAL BLOOD GAS PCO2 35 mm/Hg (35-45); ARTERIAL BLOOD GAS PH 7.49 (7.35-7.45); ARTERIAL BLOOD GAS PO2 185 mm/Hg (80-100); ARTERIAL BLOOD GAS TCO2 27.8 mmol/L (22-28)
[2018-06-30] MEDS: Propofol 10 mg/ml 1,000 MG/100 ML VIAL IV SCH ×2 (05:38→13:33)
[2018-06-30 06:03] LABS: BLOOD UREA NITROGEN 36 mg/dl (9-20); CALCIUM 8.1 mg/dL (8.4-10.2); GFR NON-AFRICAN AMERICAN > 60
[2018-06-30 06:04] LABS: HEMOGLOBIN 7.5 g/dL (12.0-18.0); MEAN CELL VOLUME 86.5 fl (80.0-94.0); MEAN CORPUSCULAR HEMOGLOBIN 28.2 pg (27.0-31.0); MEAN CORPUSCULAR HGB CONC 32.6 g/dL (33.0-37.0); RBC 2.68 Mil/uL (4.40-5.90); RED CELL DISTRIBUTION WIDTH 16.4 % (11.5-14.5); WHITE BLOOD COUNT 3.8 K/uL (4.8-10.8)
[2018-06-30] MEDS: MethylPREDNISolone 40 mg Vial IVP SCH ×2 (08:57→22:21)
--- NOTE | 2018-06-30 11:45 | CP.CCUPN ---
CCU Subjective - Physician Review Events Since Last Encounter (Free Text): 06/30/18 11:42 on vent, light sedation, multiple weaning attempts has not been successful, including one tried yesterday, will need tracheostomy. CCU Objective - Vital Signs / Intake & Output Vital Signs (Last 4 hours): Vital Signs Temp Pulse Resp BP Pulse Ox 06/30/18 10:00 97.2 F L 66 18 108/55 L 100 06/30/18 09:00 97.2 F L 54 L 16 95/54 L 100 06/30/18 08:00 97.2 F L 65 18 110/56 L 99 Intake and Output (Last 8hrs): Intake & Output 06/29/18 06/30/18 06/30/18 22:59 06:59 14:59 Intake Total 1150 1090 166 Output Total 1265 825 Balance -115 265 166 Weight 120 lb Intake: IV 80 750 86 Intake, Piggyback 500 Tube Feeding 320 240 80 Free Water Flush 250 100 Output: Gastric Amount 15 Stomach 15 Urine 1200 800 Urethral (Yang) 1200 800 Stool 50 25 - Physical Exam Narrative Physical Exam (Free Text): 06/30/18 11:43 P/E Neck: No jvd Lungs: left basal crackles Abdomen: soft, no distention, BS +ve Ext: no edema Heart: no gallop Skin: no rashes. Head: Positive for: Atraumatic, Normocephalic Pupils: Positive for: PERRL Extroacular Muscles: Positive for: EOMI Conjunctiva: Positive for: Normal. Negative for: Injected, Icteric Mouth: Positive for: Moist Mucous Membranes. Negative for: Dry, Drooling Pharnyx: Positive for: Normal Nose (Internal): Positive for: Normal Inspection Neck: Positive for: Normal Range of Motion, Trachea Midline. Negative for: Meningeal Signs, MIDLINE TENDERNESS, Paraspinal Tenderness, JVD, Lymphadenopathy, Bruit, Other Respiratory/Chest: Positive for: Good Air Exchange, Decreased Breath Sounds, Rales, Rhonchi. Negative for: Respiratory Distress, Accessory Muscle Use, Tachypneic, Tender to Palpation Cardiovascular: Positive for: Regular Rate and Rhythm, Normal S1, S2, Peripheal Pulses Present. Negative for: Murmurs, Irregular Rhythm, Tachycardic, Bradycardic Abdomen: Positive for: Normal Bowel Sounds. Negative for: Tenderness, Distention Upper Extremity: Positive for: Normal Inspection Lower Extremity: Positive for: Normal Inspection Neurological: Positive for: Motor Func Grossly Intact. Negative for: GCS=15 Psychiatric: Positive for: Other (orally intubated). Negative for: Alert, Oriented x 3 - Medications Active Medications: Active Medications Generic Name Dose Route Start Last Admin Trade Name Freq PRN Reason Stop Dose Admin Acetaminophen 650 mg 06/13/18 05:17 06/25/18 21:40 Tylenol 325mg Tab PO 650 mg Q4 PRN Administration Fever >100.4 F Acetaminophen 650 mg 06/20/18 02:30 06/20/18 02:30 Tylenol 650 Mg Supp OH 650 mg Q6 PRN Administration Fever >100.4 F Acetaminophen 650 mg 06/26/18 09:21 Tylenol 650mg/20.3ml Solution Ud NG Q4 PRN fever 100.4 or above Dextrose 0 ml 06/11/18 22:54 Dextrose 50% Inj IV STAT PRN Hypoglycemia Protocol Protocol Dextrose 0 gm 06/11/18 22:54 Glutose 15 PO ONCE PRN Hypoglycemia Protocol Protocol Dimethicone 1 applic 06/25/18 17:00 06/30/18 08:56 Proshield Plus Skin Protectant TOP 1 applic Q8 [facility] Administration Enoxaparin Sodium 30 mg 06/16/18 13:30 06/17/18 09:20 Lovenox SC 30 mg DAILY [facility] Administration Protocol Famotidine 20 mg 06/22/18 10:45 06/30/18 08:59 Pepcid IVP 20 mg Q12 [facility] Administration Glucagon 0 mg 06/11/18 22:54 Glucagen Diagnostic Kit IM STAT PRN Hypoglycemia Protocol Protocol Trimethoprim/Sulfamethoxazole 500 mls @ 250 mls/hr 06/29/18 02:00 06/30/18 02:23 475 mg/ Dextrose IVPB 250 mls/hr Q12@0200,1400 [facility] Administration Ganciclovir 250 mg/ Sodium 100 mls @ 100 mls/hr 06/29/18 00:00 06/30/18 01:00 Chloride IV 100 mls/hr Q12@0000,1200 [facility] Administration Protocol Propofol 1,000 mg in 100 mls @ 5.021 mls/hr 06/29/18 13:15 06/30/18 10:31 Diprivan IV 06/30/18 13:08 25 mcg/kg/min .[id number] [facility] 8.369 mls/hr Titration Protocol 15 MCG/KG/MIN Insulin Human Lispro 0 units 06/25/18 12:00 06/30/18 08:55 Humalog SC Not Given 0000,0600,1200,1800 [facility] Protocol Lamivudine 300 mg 06/25/18 09:00 06/30/18 08:54 Epivir PO 300 mg DAILY [facility] Administration Protocol Methylprednisolone 20 mg 06/29/18 21:00 06/30/18 08:57 Solu-Medrol IVP 20 mg Q12 [facility] Administration Morphine Sulfate 2 mg 06/26/18 09:14 06/30/18 09:01 Morphine IVP 2 mg Q6 PRN Administration Pain, moderate (4-7) Nystatin 1 applic 06/25/18 13:00 06/30/18 08:56 Nystop Topical Powder TOP 1 applic TID [facility] Administration Raltegravir 400 mg 06/19/18 09:00 06/30/18 08:55 Isentress PO 400 mg BID [facility] Administration Protocol Tenofovir Disoproxil Fumarate 300 mg 06/25/18 09:00 06/30/18 08:57 Viread PO 300 mg DAILY [facility] Administration Protocol - Patient Studies Lab Studies: Microbiology Studies 06/21/18 08:14 Mycobacterial Culture - Preliminary Other: Please Indicate Lab Studies 06/30/18 06/30/18 06/30/18 Range/Units 07:00 05:20 04:36 WBC (4.8-10.8) K/uL RBC (4.40-5.90) Mil/uL Hgb (12.0-18.0) g/dL Hct (35.0-51.0) % MCV (80.0-94.0) fl MCH (27.0-31.0) pg MCHC (33.0-37.0) g/dL RDW (11.5-14.5) % Plt Count (130-400) K/uL pCO2 35 (35-45) mm/Hg pO2 185 H (80-100) mm/Hg HCO3 27.4 (21-28) mmol/L ABG pH 7.49 H (7.35-7.45) ABG Total CO2 27.8 (22-28) mmol/L ABG O2 Saturation 99.0 H (95-98) % ABG O2 Content 11.3 L (15-23) ML/dL ABG Base Excess 3.2 H (-2.0-3.0) mmol/L ABG Hemoglobin 8.0 L (11.7-17.4) g/dL ABG Carboxyhemoglobin 0.2 L (0.5-1.5) % POC ABG HHb (Measured) 1.0 (0.0-5.0) % ABG Methemoglobin 2.2 (0.0-3.0) % ABG O2 Capacity 11.4 L (16-24) mL/dL Bright Test Yes A-a O2 Difference 56.0 mm/Hg Hgb O2 Saturation 96.7 (95.0-98.0) % Vent Mode A/c Mechanical Rate 16 FiO2 40.0 % Tidal Volume 450 PEEP 5 Sodium (132-148) mmol/l Potassium (3.6-5.0) MMOL/L Chloride (98-107) mmol/L Carbon Dioxide (22-30) mmol/L Anion Gap (10-20) BUN (9-20) mg/dl Creatinine (0.8-1.5) mg/dl Est GFR ( Amer) Est GFR (Non-Af Amer) POC Glucose (mg/dL) 304 H (65-110) mg/dL Random Glucose (75-110) mg/dL Calcium (8.4-10.2) mg/dL CMV Specimen Source CMV DNA Quant PCR (<200) IU/mL CMV Qnt PCR log IU/mL (<2.30) log IU/mL Blood Type B NEGATIVE Antibody Screen Negative BBK History Checked Patient has bt 06/30/18 06/30/18 06/29/18 Range/Units 04:30 04:30 20:54 WBC 3.8 L (4.8-10.8) K/uL RBC 2.68 L (4.40-5.90) Mil/uL Hgb 7.5 L (12.0-18.0) g/dL Hct 23.2 L (35.0-51.0) % MCV 86.5 (80.0-94.0) fl MCH 28.2 (27.0-31.0) pg MCHC 32.6 L (33.0-37.0) g/dL RDW 16.4 H (11.5-14.5) % Plt Count 212 (130-400) K/uL pCO2 (35-45) mm/Hg pO2 (80-100) mm/Hg HCO3 (21-28) mmol/L ABG pH (7.35-7.45) ABG Total CO2 (22-28) mmol/L ABG O2 Saturation (95-98) % ABG O2 Content (15-23) ML/dL ABG Base Excess (-2.0-3.0) mmol/L ABG Hemoglobin (11.7-17.4) g/dL ABG Carboxyhemoglobin (0.5-1.5) % POC ABG HHb (Measured) (0.0-5.0) % ABG Methemoglobin (0.0-3.0) % ABG O2 Capacity (16-24) mL/dL Bright Test A-a O2 Difference mm/Hg Hgb O2 Saturation (95.0-98.0) % Vent Mode Mechanical Rate FiO2 % Tidal Volume PEEP Sodium 132 (132-148) mmol/l Potassium 5.0 (3.6-5.0) MMOL/L Chloride 94 L (98-107) mmol/L Carbon Dioxide 26 (22-30) mmol/L Anion Gap 17 (10-20) BUN 36 H (9-20) mg/dl Creatinine 1.2 (0.8-1.5) mg/dl Est GFR ( Amer) > 60 Est GFR (Non-Af Amer) > 60 POC Glucose (mg/dL) 126 H (65-110) mg/dL Random Glucose 288 H (75-110) mg/dL Calcium 8.1 L (8.4-10.2) mg/dL CMV Specimen Source CMV DNA Quant PCR (<200) IU/mL CMV Qnt PCR log IU/mL (<2.30) log IU/mL Blood Type Antibody Screen BBK History Checked 06/29/18 06/27/18 Range/Units 17:06 14:13 WBC (4.8-10.8) K/uL RBC (4.40-5.90) Mil/uL Hgb (12.0-18.0) g/dL Hct (35.0-51.0) % MCV (80.0-94.0) fl MCH (27.0-31.0) pg MCHC (33.0-37.0) g/dL RDW (11.5-14.5) % Plt Count (130-400) K/uL pCO2 (35-45) mm/Hg pO2 (80-100) mm/Hg HCO3 (21-28) mmol/L ABG pH (7.35-7.45) ABG Total CO2 (22-28) mmol/L ABG O2 Saturation (95-98) % ABG O2 Content (15-23) ML/dL ABG Base Excess (-2.0-3.0) mmol/L ABG Hemoglobin (11.7-17.4) g/dL ABG Carboxyhemoglobin (0.5-1.5) % POC ABG HHb (Measured) (0.0-5.0) % ABG Methemoglobin (0.0-3.0) % ABG O2 Capacity (16-24) mL/dL Bright Test A-a O2 Difference mm/Hg Hgb O2 Saturation (95.0-98.0) % Vent Mode Mechanical Rate FiO2 % Tidal Volume PEEP Sodium (132-148) mmol/l Potassium (3.6-5.0) MMOL/L Chloride (98-107) mmol/L Carbon Dioxide (22-30) mmol/L Anion Gap (10-20) BUN (9-20) mg/dl Creatinine (0.8-1.5) mg/dl Est GFR ( Amer) Est GFR (Non-Af Amer) POC Glucose (mg/dL) 268 H (65-110) mg/dL Random Glucose (75-110) mg/dL Calcium (8.4-10.2) mg/dL CMV Specimen Source Plasma CMV DNA Quant PCR [id number] H (<200) IU/mL CMV Qnt PCR log IU/mL 5.01 H (<2.30) log IU/mL Blood Type Antibody Screen BBK History Checked Laboratory Results - last 24 hr 06/27/18 06/29/18 06/29/18 14:13 17:06 20:54 WBC RBC Hgb Hct MCV MCH MCHC RDW Plt Count pCO2 pO2 HCO3 ABG pH ABG Total CO2 ABG O2 Saturation ABG O2 Content ABG Base Excess ABG Hemoglobin ABG Carboxyhemoglobin POC ABG HHb (Measured) ABG Methemoglobin ABG O2 Capacity Bright Test A-a O2 Difference Hgb O2 Saturation Vent Mode Mechanical Rate FiO2 Tidal Volume PEEP Sodium Potassium Chloride Carbon Dioxide Anion Gap BUN Creatinine Est GFR ( Amer) Est GFR (Non-Af Amer) POC Glucose (mg/dL) 268 H 126 H Random Glucose Calcium CMV Specimen Source Plasma CMV DNA Quant PCR [id number] H CMV Qnt PCR log IU/mL 5.01 H Blood Type Antibody Screen BBK History Checked 06/30/18 06/30/18 06/30/18 04:30 04:30 04:36 WBC 3.8 L RBC 2.68 L Hgb 7.5 L Hct 23.2 L MCV 86.5 MCH 28.2 MCHC 32.6 L RDW 16.4 H Plt Count 212 pCO2 35 pO2 185 H HCO3 27.4 ABG pH 7.49 H ABG Total CO2 27.8 ABG O2 Saturation 99.0 H ABG O2 Content 11.3 L ABG Base Excess 3.2 H ABG Hemoglobin 8.0 L ABG Carboxyhemoglobin 0.2 L POC ABG HHb (Measured) 1.0 ABG Methemoglobin 2.2 ABG O2 Capacity 11.4 L Bright Test Yes A-a O2 Difference 56.0 Hgb O2 Saturation 96.7 Vent Mode A/c Mechanical Rate 16 FiO2 40.0 Tidal Volume 450 PEEP 5 Sodium 132 Potassium 5.0 Chloride 94 L Carbon Dioxide 26 Anion Gap 17 BUN 36 H Creatinine 1.2 Est GFR ( Amer) > 60 Est GFR (Non-Af Amer) > 60 POC Glucose (mg/dL) Random Glucose 288 H Calcium 8.1 L CMV Specimen Source CMV DNA Quant PCR CMV Qnt PCR log IU/mL Blood Type Antibody Screen BBK History Checked 06/30/18 06/30/18 05:20 07:00 WBC RBC Hgb Hct MCV MCH MCHC RDW Plt Count pCO2 pO2 HCO3 ABG pH ABG Total CO2 ABG O2 Saturation ABG O2 Content ABG Base Excess ABG Hemoglobin ABG Carboxyhemoglobin POC ABG HHb (Measured) ABG Methemoglobin ABG O2 Capacity Bright Test A-a O2 Difference Hgb O2 Saturation Vent Mode Mechanical Rate FiO2 Tidal Volume PEEP Sodium Potassium Chloride Carbon Dioxide Anion Gap BUN Creatinine Est GFR ( Amer) Est GFR (Non-Af Amer) POC Glucose (mg/dL) 304 H Random Glucose Calcium CMV Specimen Source CMV DNA Quant PCR CMV Qnt PCR log IU/mL Blood Type B NEGATIVE Antibody Screen Negative BBK History Checked Patient has bt Radiology Impressions: Radiology Impressions Chest X-Ray 06/29/18 05:00 IMPRESSION: Increasing ground-glass opacity in both upper lobes. Nonspecific. Possible pneumonia. Rule out interstitial pulmonary edema. Fingerstick Blood Sugar Results: 126 Critical Care Progress Note - Nutrition Nutrition: Nutrition Category Date Time Status NPO Diet [DIET] Diets 06/19/18 Dinner Active Assessment/Plan - Assessment and Plan (Free Text) Assessment: IMPRESSION / MAJOR PROBLEMS NOW: Major multi-system organ insufficiency / Failure- 1. Acute Hypoxemic Resp Failure 2 Pneumonia (etiology undetermined: possible PCP, atypical, other opportunistic pneumonitis, r/o Pulm TB)- one AFB smear negative. 2. AMS, r/o [employer] infection, other toxic/metabolic encephalopathy, vs other possible [employer] manifestations of AIDs. 3. New HIV+ 4. Azotemia / Dehydration with Hyperkalemia : improving 5. Chronic Disease Anemia PLAN: 1. Day # 13 on MV, multiple weaning attempts failed, tracheostomy on Monday . 2. Decrease sedation a bit. 3. Ongoing empiric abx / Antifungal and antiviral coverage noted: Azithro/ Micafungin / Bactrim Gancyclovir. On HAART meds also. 4. Repeat CT brain x 3 done and all negative for any new changes. LP done Jun 18, no clear etiological results. EEG negative for seizures. ?? HIV Encephalopathy?? 5. Full code as per family and HCP / POA.
--- NOTE | 2018-06-30 14:07 | RAD ---
Date of service: 06/30/2018 HISTORY: reevaluate COMPARISON: Multiple serial examinations preceding the most recent study: 2018. FINDINGS: LUNGS: Bilateral multifocal infiltrates left greater than right. PLEURA: No significant pleural effusion identified, no pneumothorax apparent. CARDIOVASCULAR: No atherosclerotic calcification present PICC line in satisfactory position OSSEOUS STRUCTURES: No significant abnormalities. VISUALIZED UPPER ABDOMEN: Normal. OTHER FINDINGS: Stable, satisfactory position ventilatory, nasogastric apparatus. IMPRESSION: No significant interval change compared to the prior examination(s).
--- NOTE | 2018-06-30 15:53 | CP.PCM.PN ---
Subjective - Date & Time of Evaluation Date of Evaluation: 07/01/18 Time of Evaluation: 17:20 - Subjective Subjective: F/U Respiratory Failure Eyes open, agitated early in AM, appear calm now, intubated, sedated, on prvc/ac. Objective - Vital Signs/Intake and Output Vital Signs (last 24 hours): Temp Pulse Resp BP Pulse Ox 97 F L 50 L 16 80/45 L 100 06/30/18 13:43 06/30/18 13:43 06/30/18 13:43 06/30/18 13:43 06/30/18 13:43 Intake and Output: 06/30/18 06/30/18 06:59 18:59 Intake Total 1410 1098 Output Total 1230 1000 Balance 180 98 - Medications Medications: Current Medications Acetaminophen (Tylenol 325mg Tab) 650 mg PO Q4 PRN PRN Reason: Fever >100.4 F Last Admin: 06/25/18 21:40 Dose: 650 mg Acetaminophen (Tylenol 650 Mg Supp) 650 mg HI Q6 PRN PRN Reason: Fever >100.4 F Last Admin: 06/20/18 02:30 Dose: 650 mg Acetaminophen (Tylenol 650mg/20.3ml Solution Ud) 650 mg NG Q4 PRN PRN Reason: fever 100.4 or above Dextrose (Dextrose 50% Inj) 0 ml IV STAT PRN; Protocol PRN Reason: Hypoglycemia Protocol Dextrose (Glutose 15) 0 gm PO ONCE PRN; Protocol PRN Reason: Hypoglycemia Protocol Dimethicone (Proshield Plus Skin Protectant) 1 applic TOP Q8 [facility] Last Admin: 06/30/18 08:56 Dose: 1 applic Enoxaparin Sodium (Lovenox) 30 mg SC DAILY [facility]; Protocol Last Admin: 06/17/18 09:20 Dose: 30 mg Famotidine (Pepcid) 20 mg IVP Q12 [facility] Last Admin: 06/30/18 08:59 Dose: 20 mg Glucagon (Glucagen Diagnostic Kit) 0 mg IM STAT PRN; Protocol PRN Reason: Hypoglycemia Protocol Trimethoprim/Sulfamethoxazole (475 mg/ Dextrose) 500 mls @ 250 mls/hr IVPB Q12@0200,1400 [facility] Last Admin: 06/30/18 13:37 Dose: 250 mls/hr Ganciclovir 250 mg/ Sodium (Chloride) 100 mls @ 100 mls/hr IV Q12@0000,1200 [facility]; Protocol Last Admin: 06/30/18 15:28 Dose: 100 mls/hr Insulin Human Lispro (Humalog) 0 units SC 0000,0600,1200,1800 [facility]; Protocol Last Admin: 06/30/18 12:21 Dose: 1 units Lamivudine (Epivir) 300 mg PO DAILY [facility]; Protocol Last Admin: 06/30/18 08:54 Dose: 300 mg Methylprednisolone (Solu-Medrol) 20 mg IVP Q12 [facility] Last Admin: 06/30/18 08:57 Dose: 20 mg Morphine Sulfate (Morphine) 2 mg IVP Q6 PRN PRN Reason: Pain, moderate (4-7) Last Admin: 06/30/18 09:01 Dose: 2 mg Nystatin (Nystop Topical Powder) 1 applic TOP TID [facility] Last Admin: 06/30/18 12:23 Dose: 1 applic Raltegravir (Isentress) 400 mg PO BID [facility]; Protocol Last Admin: 06/30/18 08:55 Dose: 400 mg Tenofovir Disoproxil Fumarate (Viread) 300 mg PO DAILY [facility]; Protocol Last Admin: 06/30/18 08:57 Dose: 300 mg - Labs Labs: 06/30/18 04:30 06/30/18 04:30 PT 13.1 Seconds (9.8-13.1) 06/18/18 05:47 INR 1.2 06/18/18 05:47 APTT 28.9 Seconds (25.6-37.1) 06/18/18 05:47 - Constitutional Appears: Chronically Ill - Head Exam Head Exam: NORMAL INSPECTION - Eye Exam Additional comments: Pupils sluggish reaction to light - ENT Exam Additional comments: Intubated. OGT - Neck Exam Neck Exam: Normal Inspection - Respiratory Exam Respiratory Exam: Decreased Breath Sounds (at bases), Rhonchi (at bases) - Cardiovascular Exam Cardiovascular Exam: REGULAR RHYTHM - GI/Abdominal Exam GI & Abdominal Exam: Soft, Normal Bowel Sounds - Exam Additional comments: Yang Cath - Extremities Exam Additional comments: Edema BUE - Neurological Exam Additional comments: Open eyes, intubated, no following commands, restless movements with head and extremities. - Skin Skin Exam: Warm Assessment and Plan (1) Respiratory failure Status: Acute (2) Altered mental status Status: Acute (3) HIV (human immunodeficiency virus infection) Status: Acute (4) Fever Status: Acute (5) Pneumonia Status: Acute (6) Severe sepsis Status: Acute (7) Acute renal failure Status: Acute (8) Diabetes mellitus Status: Acute - Assessment and Plan (Free Text) Plan: Critical care time: 33 min.
[2018-06-30] MEDS: Fentanyl Citrate 2,500 MCG in Dextrose 5% In Water 200 ML IV SCH (22:35)
[2018-07-01] MEDS: Proshield Plus GEL TOP SCH ×3 (01:00→17:37)
[2018-07-01] MEDS: DEXTROSE 5% IVPB SCH ×2 (01:17→15:42)
[2018-07-01] MEDS: WATER IVPB SCH ×2 (01:17→15:42)
[2018-07-01] MEDS: SULFAMETHOXAZOLE IVPB SCH ×2 (01:17→15:42)
[2018-07-01] MEDS: TRIMETHOPRIM IVPB SCH ×2 (01:17→15:42)
[2018-07-01] MEDS: Insulin Lispro (humaLOG) 100 Units/ml Inj SC SCH ×5 (01:19→23:00)
[2018-07-01] MEDS ORDERED: Propofol 10 mg/ml 1,000 MG/100 ML VIAL IV SCH (01:30)
[2018-07-01 06:12] LABS: HEMOGLOBIN 8.8 g/dL (12.0-18.0); MEAN CELL VOLUME 86.9 fl (80.0-94.0); MEAN CORPUSCULAR HEMOGLOBIN 27.7 pg (27.0-31.0); MEAN CORPUSCULAR HGB CONC 31.9 g/dL (33.0-37.0); RBC 3.16 Mil/uL (4.40-5.90); RED CELL DISTRIBUTION WIDTH 16.6 % (11.5-14.5); WHITE BLOOD COUNT 4.6 K/uL (4.8-10.8)
[2018-07-01 06:19] LABS: ABG ALLEN TEST YES; ARTERIAL BLOOD GAS O2 SAT 100.6 % (95-98); ARTERIAL BLOOD GAS PCO2 43 mm/Hg (35-45); ARTERIAL BLOOD GAS PH 7.38 (7.35-7.45); ARTERIAL BLOOD GAS PO2 173 mm/Hg (80-100); ARTERIAL BLOOD GAS TCO2 26.7 mmol/L (22-28)
[2018-07-01 06:22] LABS: BLOOD UREA NITROGEN 33 mg/dl (9-20); CALCIUM 8.6 mg/dL (8.4-10.2); GFR NON-AFRICAN AMERICAN > 60
[2018-07-01] MEDS: MethylPREDNISolone 40 mg Vial IVP SCH ×2 (08:46→21:11)
--- NOTE | 2018-07-01 11:08 | RAD ---
Date of service: 07/01/2018 HISTORY: Re-evaluate. COMPARISON: Multiple serial examinations preceding the most recent study: 2018. Time of the most recent examination: 04:26. FINDINGS: LUNGS: Stable multifocal and bilateral infiltrates. PLEURA: No significant pleural effusion identified, no pneumothorax apparent. CARDIOVASCULAR: No atherosclerotic calcification present PICC line in satisfactory position OSSEOUS STRUCTURES: No significant abnormalities. VISUALIZED UPPER ABDOMEN: Normal. OTHER FINDINGS: Stable, satisfactory position ventilatory, nasogastric apparatus. IMPRESSION: No significant interval change compared to the prior examination(s). Stable bilateral infiltrates. Stable position of support apparatus.
--- NOTE | 2018-07-01 13:15 | CP.CCUPN ---
CCU Subjective - Physician Review Events Since Last Encounter (Free Text): 07/01/18 13:13 sedated intubated, continue to require sedation , as gets agitated and restless when off sedation. CCU Objective - Vital Signs / Intake & Output Vital Signs (Last 4 hours): Vital Signs Temp Pulse Resp BP Pulse Ox 07/01/18 12:00 97 F L 57 L 16 117/66 99 07/01/18 11:00 76 14 120/86 99 07/01/18 10:00 50 L 16 90/56 L 100 Intake and Output (Last 8hrs): Intake & Output 06/30/18 07/01/18 07/01/18 22:59 06:59 14:59 Intake Total 760 1647 313 Output Total 900 900 600 Balance -140 747 -287 Weight 118 lb Intake: IV 120 1227 73 Intake, Piggyback 200 Tube Feeding 240 320 240 Free Water Flush 200 100 Output: Urine 900 900 600 Urethral (Yang) 900 900 600 - Physical Exam Narrative Physical Exam (Free Text): 07/01/18 13:14 P/E Neck; No JVD Lungs: rt basal crackles Abdomen: soft ext: No edema heart: no gallop Head: Positive for: Atraumatic, Normocephalic Pupils: Positive for: PERRL Extroacular Muscles: Positive for: EOMI Conjunctiva: Positive for: Normal. Negative for: Injected, Icteric Mouth: Positive for: Moist Mucous Membranes. Negative for: Dry, Drooling Pharnyx: Positive for: Normal Nose (Internal): Positive for: Normal Inspection Neck: Positive for: Normal Range of Motion, Trachea Midline. Negative for: Meningeal Signs, MIDLINE TENDERNESS, Paraspinal Tenderness, JVD, Lymphadenopathy, Bruit, Other Respiratory/Chest: Positive for: Good Air Exchange, Decreased Breath Sounds, Rales, Rhonchi. Negative for: Respiratory Distress, Accessory Muscle Use, Tachypneic, Tender to Palpation Cardiovascular: Positive for: Regular Rate and Rhythm, Normal S1, S2, Peripheal Pulses Present. Negative for: Murmurs, Irregular Rhythm, Tachycardic, Bradycardic Abdomen: Positive for: Normal Bowel Sounds. Negative for: Tenderness, Distention Upper Extremity: Positive for: Normal Inspection Lower Extremity: Positive for: Normal Inspection Neurological: Positive for: Motor Func Grossly Intact. Negative for: GCS=15 Psychiatric: Positive for: Other (orally intubated). Negative for: Alert, Oriented x 3 - Medications Active Medications: Active Medications Generic Name Dose Route Start Last Admin Trade Name Freq PRN Reason Stop Dose Admin Acetaminophen 650 mg 06/13/18 05:17 06/25/18 21:40 Tylenol 325mg Tab PO 650 mg Q4 PRN Administration Fever >100.4 F Acetaminophen 650 mg 06/20/18 02:30 06/20/18 02:30 Tylenol 650 Mg Supp HI 650 mg Q6 PRN Administration Fever >100.4 F Acetaminophen 650 mg 06/26/18 09:21 Tylenol 650mg/20.3ml Solution Ud NG Q4 PRN fever 100.4 or above Dextrose 0 ml 06/11/18 22:54 Dextrose 50% Inj IV STAT PRN Hypoglycemia Protocol Protocol Dextrose 0 gm 06/11/18 22:54 Glutose 15 PO ONCE PRN Hypoglycemia Protocol Protocol Dimethicone 1 applic 06/25/18 17:00 07/01/18 08:47 Proshield Plus Skin Protectant TOP 1 applic Q8 [facility] Administration Enoxaparin Sodium 30 mg 06/16/18 13:30 06/17/18 09:20 Lovenox SC 30 mg DAILY [facility] Administration Protocol Famotidine 20 mg 06/22/18 10:45 07/01/18 08:46 Pepcid IVP 20 mg Q12 [facility] Administration Glucagon 0 mg 06/11/18 22:54 Glucagen Diagnostic Kit IM STAT PRN Hypoglycemia Protocol Protocol Trimethoprim/Sulfamethoxazole 500 mls @ 250 mls/hr 06/29/18 02:00 07/01/18 01:17 475 mg/ Dextrose IVPB 250 mls/hr Q12@0200,1400 [facility] Administration Ganciclovir 250 mg/ Sodium 100 mls @ 100 mls/hr 06/29/18 00:00 07/01/18 11:37 Chloride IV 100 mls/hr Q12@0000,1200 [facility] Administration Protocol Fentanyl Citrate 2,500 mcg/ 250 mls @ 5.44 mls/hr 06/30/18 20:45 07/01/18 09:30 Dextrose IV 3.5 mcg/kg/hr .Q24H [facility] 19.05 mls/hr Titration Protocol 1 MCG/KG/HR Propofol 1,000 mg in 100 mls @ 3.266 mls/hr 07/01/18 01:30 07/01/18 10:13 Diprivan IV 07/02/18 01:20 5 mcg/kg/min .Q24H [facility] 1.633 mls/hr Titration Protocol 10 MCG/KG/MIN Insulin Human Lispro 0 units 06/25/18 12:00 07/01/18 12:10 Humalog SC Not Given 0000,0600,1200,1800 [facility] Protocol Lamivudine 300 mg 06/25/18 09:00 07/01/18 08:46 Epivir PO [address] [facility] Administration Protocol Methylprednisolone 20 mg 06/29/18 21:00 07/01/18 08:46 Solu-Medrol IVP 20 mg Q12 [facility] Administration Morphine Sulfate 2 mg 06/26/18 09:14 06/30/18 16:17 Morphine IVP 2 mg Q6 PRN Administration Pain, moderate (4-7) Nystatin 1 applic 06/25/18 13:00 07/01/18 08:47 Nystop Topical Powder TOP 1 applic TID [facility] Administration Raltegravir 400 mg 06/19/18 09:00 07/01/18 08:46 Isentress PO [address] [facility] Administration Protocol Tenofovir Disoproxil Fumarate 300 mg 06/25/18 09:00 07/01/18 08:48 Viread PO [address] [facility] Administration Protocol - Patient Studies Lab Studies: Lab Studies 07/01/18 07/01/18 07/01/18 Range/Units 10:54 05:48 05:13 WBC (4.8-10.8) K/uL RBC (4.40-5.90) Mil/uL Hgb (12.0-18.0) g/dL Hct (35.0-51.0) % MCV (80.0-94.0) fl MCH (27.0-31.0) pg MCHC (33.0-37.0) g/dL RDW (11.5-14.5) % Plt Count (130-400) K/uL pCO2 43 (35-45) mm/Hg pO2 173 H (80-100) mm/Hg HCO3 25.0 (21-28) mmol/L ABG pH 7.38 (7.35-7.45) ABG Total CO2 26.7 (22-28) mmol/L ABG O2 Saturation 100.6 H (95-98) % ABG Base Excess 0 (-2.0-3.0) mmol/L Bright Test Yes ABG Potassium 4.9 (3.6-5.2) mmol/L A-a O2 Difference 58.0 mm/Hg Glucose 192 H (75-110) mg/dL Lactate 2.7 H (0.7-2.1) mmol/L Vent Mode A/c Mechanical Rate 16 FiO2 40.0 % Tidal Volume 450 PEEP 5 Sodium 132.0 (132-148) mmol/l Potassium (3.6-5.0) MMOL/L Chloride 103.0 (98-107) mmol/L Carbon Dioxide (22-30) mmol/L Anion Gap (10-20) BUN (9-20) mg/dl Creatinine (0.8-1.5) mg/dl Est GFR ( Amer) Est GFR (Non-Af Amer) POC Glucose (mg/dL) 116 H 201 H (65-110) mg/dL Random Glucose (75-110) mg/dL Calcium (8.4-10.2) mg/dL Arterial Blood Potassium 4.9 (3.6-5.2) mmol/L 07/01/18 07/01/18 06/30/18 Range/Units 04:50 04:50 22:31 WBC 4.6 L (4.8-10.8) K/uL RBC 3.16 L (4.40-5.90) Mil/uL Hgb 8.8 L (12.0-18.0) g/dL Hct 27.5 L (35.0-51.0) % MCV 86.9 (80.0-94.0) fl MCH 27.7 (27.0-31.0) pg MCHC 31.9 L (33.0-37.0) g/dL RDW 16.6 H (11.5-14.5) % Plt Count 237 (130-400) K/uL pCO2 (35-45) mm/Hg pO2 (80-100) mm/Hg HCO3 (21-28) mmol/L ABG pH (7.35-7.45) ABG Total CO2 (22-28) mmol/L ABG O2 Saturation (95-98) % ABG Base Excess (-2.0-3.0) mmol/L Bright Test ABG Potassium (3.6-5.2) mmol/L A-a O2 Difference mm/Hg Glucose (75-110) mg/dL Lactate (0.7-2.1) mmol/L Vent Mode Mechanical Rate FiO2 % Tidal Volume PEEP Sodium 133 (132-148) mmol/l Potassium 5.0 (3.6-5.0) MMOL/L Chloride 100 (98-107) mmol/L Carbon Dioxide 23 (22-30) mmol/L Anion Gap 15 (10-20) BUN 33 H (9-20) mg/dl Creatinine 1.2 (0.8-1.5) mg/dl Est GFR ( Amer) > 60 Est GFR (Non-Af Amer) > 60 POC Glucose (mg/dL) 104 (65-110) mg/dL Random Glucose 198 H (75-110) mg/dL Calcium 8.6 (8.4-10.2) mg/dL Arterial Blood Potassium (3.6-5.2) mmol/L 06/30/18 06/30/18 Range/Units 16:15 12:20 WBC (4.8-10.8) K/uL RBC (4.40-5.90) Mil/uL Hgb (12.0-18.0) g/dL Hct (35.0-51.0) % MCV (80.0-94.0) fl MCH (27.0-31.0) pg MCHC (33.0-37.0) g/dL RDW (11.5-14.5) % Plt Count (130-400) K/uL pCO2 (35-45) mm/Hg pO2 (80-100) mm/Hg HCO3 (21-28) mmol/L ABG pH (7.35-7.45) ABG Total CO2 (22-28) mmol/L ABG O2 Saturation (95-98) % ABG Base Excess (-2.0-3.0) mmol/L Bright Test ABG Potassium (3.6-5.2) mmol/L A-a O2 Difference mm/Hg Glucose (75-110) mg/dL Lactate (0.7-2.1) mmol/L Vent Mode Mechanical Rate FiO2 % Tidal Volume PEEP Sodium (132-148) mmol/l Potassium (3.6-5.0) MMOL/L Chloride (98-107) mmol/L Carbon Dioxide (22-30) mmol/L Anion Gap (10-20) BUN (9-20) mg/dl Creatinine (0.8-1.5) mg/dl Est GFR ( Amer) Est GFR (Non-Af Amer) POC Glucose (mg/dL) 243 H 156 H (65-110) mg/dL Random Glucose (75-110) mg/dL Calcium (8.4-10.2) mg/dL Arterial Blood Potassium (3.6-5.2) mmol/L Laboratory Results - last 24 hr 06/30/18 06/30/18 06/30/18 12:20 16:15 22:31 WBC RBC Hgb Hct MCV MCH MCHC RDW Plt Count pCO2 pO2 HCO3 ABG pH ABG Total CO2 ABG O2 Saturation ABG Base Excess Bright Test ABG Potassium A-a O2 Difference Glucose Lactate Vent Mode Mechanical Rate FiO2 Tidal Volume PEEP Sodium Potassium Chloride Carbon Dioxide Anion Gap BUN Creatinine Est GFR ( Amer) Est GFR (Non-Af Amer) POC Glucose (mg/dL) 156 H 243 H 104 Random Glucose Calcium Arterial Blood Potassium 07/01/18 07/01/18 07/01/18 04:50 04:50 05:13 WBC 4.6 L RBC 3.16 L Hgb 8.8 L Hct 27.5 L MCV 86.9 MCH 27.7 MCHC 31.9 L RDW 16.6 H Plt Count 237 pCO2 43 pO2 173 H HCO3 25.0 ABG pH 7.38 ABG Total CO2 26.7 ABG O2 Saturation 100.6 H ABG Base Excess 0 Bright Test Yes ABG Potassium 4.9 A-a O2 Difference 58.0 Glucose 192 H Lactate 2.7 H Vent Mode A/c Mechanical Rate 16 FiO2 40.0 Tidal Volume 450 PEEP 5 Sodium 133 132.0 Potassium 5.0 Chloride 100 103.0 Carbon Dioxide 23 Anion Gap 15 BUN 33 H Creatinine 1.2 Est GFR ( Amer) > 60 Est GFR (Non-Af Amer) > 60 POC Glucose (mg/dL) Random Glucose 198 H Calcium 8.6 Arterial Blood Potassium 4.9 07/01/18 07/01/18 05:48 10:54 WBC RBC Hgb Hct MCV MCH MCHC RDW Plt Count pCO2 pO2 HCO3 ABG pH ABG Total CO2 ABG O2 Saturation ABG Base Excess Bright Test ABG Potassium A-a O2 Difference Glucose Lactate Vent Mode Mechanical Rate FiO2 Tidal Volume PEEP Sodium Potassium Chloride Carbon Dioxide Anion Gap BUN Creatinine Est GFR ( Amer) Est GFR (Non-Af Amer) POC Glucose (mg/dL) 201 H 116 H Random Glucose Calcium Arterial Blood Potassium Radiology Impressions: Radiology Impressions Chest X-Ray 06/30/18 06:00 IMPRESSION: No significant interval change compared to the prior examination(s). Chest X-Ray 07/01/18 06:00 IMPRESSION: No significant interval change compared to the prior examination(s). Stable bilateral infiltrates. Stable position of support apparatus. Fingerstick Blood Sugar Results: 119 Critical Care Progress Note - Nutrition Nutrition: Nutrition Category Date Time Status NPO Diet [DIET] Diets 06/19/18 Dinner Active Assessment/Plan - Assessment and Plan (Free Text) Assessment: IMPRESSION 1. Acute Hypoxemic Resp Failure 2 Pneumonia (etiology undetermined: possible PCP, atypical, other opportunistic pneumonitis, r/o Pulm TB)- one AFB smear negative. 2. AMS, r/o [employer] infection, other toxic/metabolic encephalopathy, vs other possible [employer]OR manifestations of AIDs. 3. New HIV+ 4. Azotemia / Dehydration with Hyperkalemia : improving 5. Chronic Disease Anemia PLAN: 1. Day # 14 on MV, multiple weaning attempts failed, tracheostomy on Monday . 2. Decrease sedations at time but continue to require sedation. 3. Ongoing empiric abx / Antifungal and antiviral coverage noted: Azithro/ Micafungin / Bactrim Gancyclovir. On HAART meds also. 4. Repeat CT brain x 3 done and all negative for any new changes. LP done Jun 18, no clear etiological results. EEG negative for seizures. ?? HIV Encephalo michelle?? 5. Full code as per family and HCP / POA.
--- NOTE | 2018-07-01 14:26 | CP.PCM.CON ---
History of Present Illness - History of Present Illness History of Present Illness: Surgery: Dr. Ortiz Reason for consult: respiratory failure, unable to wean from vent, requesting trach HPI: Patient is a 67 y/o male who presented on 06/12/2018 after a home wellness check found to have AMS and living in unkempt conditions. History obtained from prior documentation due to patient status. Patient found to have oral thrush and a rapid HIV was found to be positive. Since admission patient clinical condition deteriorated and was intubated on 06/15/18 by anesthesia. Patient found to have pneumonia, possible opportunistic, requiring mechanical ventilation support. Per documentation AMS possible 2/2 HIV encephalopathy. Per ICU, multiple attempts at vent weaning have been performed however unsuccessful due to inability to follow commands and agitation. Due to inability to extubate, surgical consult placed for tracheostomy. PMH: HIV+ CD4 count <20, CMV infection, HUGO, AMS/encephalopathy PSH: unknown Social: lives alone Review of Systems - Review of Systems Systems not reviewed;Unavailable: Intubated Past Patient History - Past Social History Smoking Status: Never Smoked Alcohol: None (Pt deied) Drugs: Denies (Pt denied.) Home Situation {Lives}: Alone - CARDIAC Hx Pacemaker: No - HEMATOLOGICAL/ONCOLOGICAL Hx Cancer: No - MUSCULOSKELETAL/RHEUMATOLOGICAL Hx Falls: No - PSYCHIATRIC Hx Substance Use: No - SURGICAL HISTORY Hx Mastectomy: No Meds Allergies/Adverse Reactions: Allergies Allergy/AdvReac Type Severity Reaction Status Date / Time Unobtainable Allergy Verified 06/11/18 20:48 - Medications Medications: Current Medications Acetaminophen (Tylenol 325mg Tab) 650 mg PO Q4 PRN PRN Reason: Fever >100.4 F Last Admin: 06/25/18 21:40 Dose: 650 mg Acetaminophen (Tylenol 650 Mg Supp) 650 mg [place] Q6 PRN PRN Reason: Fever >100.4 F Last Admin: 06/20/18 02:30 Dose: 650 mg Acetaminophen (Tylenol 650mg/20.3ml Solution Ud) 650 mg NG Q4 PRN PRN Reason: fever 100.4 or above Dextrose (Dextrose 50% Inj) 0 ml IV STAT PRN; Protocol PRN Reason: Hypoglycemia Protocol Dextrose (Glutose 15) 0 gm PO ONCE PRN; Protocol PRN Reason: Hypoglycemia Protocol Dimethicone (Proshield Plus Skin Protectant) 1 applic TOP Q8 [facility] Last Admin: 07/01/18 08:47 Dose: 1 applic Enoxaparin Sodium (Lovenox) 30 mg SC DAILY [facility]; Protocol Last Admin: 06/17/18 09:20 Dose: 30 mg Famotidine (Pepcid) 20 mg IVP Q12 [facility] Last Admin: 07/01/18 08:46 Dose: 20 mg Glucagon (Glucagen Diagnostic Kit) 0 mg IM STAT PRN; Protocol PRN Reason: Hypoglycemia Protocol Trimethoprim/Sulfamethoxazole (475 mg/ Dextrose) 500 mls @ 250 mls/hr IVPB Q12@0200,1400 [facility] Last Admin: 07/01/18 01:17 Dose: 250 mls/hr Ganciclovir 250 mg/ Sodium (Chloride) 100 mls @ 100 mls/hr IV Q12@0000,1200 [facility]; Protocol Last Admin: 07/01/18 11:37 Dose: 100 mls/hr Fentanyl Citrate 2,500 mcg/ (Dextrose) 250 mls @ 5.44 mls/hr IV .Q24H [facility]; Protocol Last Titration: 07/01/18 09:30 Dose: 3.5 mcg/kg/hr, 19.05 mls/hr Propofol (Diprivan) 1,000 mg in 100 mls @ 3.266 mls/hr IV .Q24H [facility]; Protocol Stop: 07/02/18 01:20 Last Titration: 07/01/18 10:25 Dose: 0 mcg/kg/min, 0 mls/hr Insulin Human Lispro (Humalog) 0 units SC 0000,0600,1200,1800 [facility]; Protocol Last Admin: 07/01/18 12:10 Dose: Not Given Lamivudine (Epivir) 300 mg PO DAILY [facility]; Protocol Last Admin: 07/01/18 08:46 Dose: 300 mg Methylprednisolone (Solu-Medrol) 20 mg IVP Q12 [facility] Last Admin: 07/01/18 08:46 Dose: 20 mg Morphine Sulfate (Morphine) 2 mg IVP Q6 PRN PRN Reason: Pain, moderate (4-7) Last Admin: 06/30/18 16:17 Dose: 2 mg Nystatin (Nystop Topical Powder) 1 applic TOP TID [facility] Last Admin: 07/01/18 14:08 Dose: 1 applic Raltegravir (Isentress) 400 mg PO BID [facility]; Protocol Last Admin: 07/01/18 08:46 Dose: 400 mg Tenofovir Disoproxil Fumarate (Viread) 300 mg PO DAILY [facility]; Protocol Last Admin: 07/01/18 08:48 Dose: 300 mg Physical Exam - Constitutional Appears: Cachectic, Chronically Ill - ENT Exam ENT Exam: Mucous Membranes Dry - Respiratory Exam Additional comments: mechanical ventilation 16/450/40/5 - Cardiovascular Exam Cardiovascular Exam: Bradycardia, REGULAR RHYTHM - Psychiatric Exam Additional comments: sedated Results - Vital Signs Recent Vital Signs: Last Vital Signs Temp 97 F L 07/01/18 12:00 Pulse 51 L 07/01/18 14:00 Resp 16 07/01/18 14:00 BP 92/57 L 07/01/18 14:00 Pulse Ox 100 07/01/18 14:00 - Labs Result Diagrams: 07/01/18 04:50 07/01/18 04:50 Labs: Laboratory Results - last 24 hr 06/30/18 06/30/18 06/30/18 12:20 16:15 22:31 WBC RBC Hgb Hct MCV MCH MCHC RDW Plt Count pCO2 pO2 HCO3 ABG pH ABG Total CO2 ABG O2 Saturation ABG Base Excess Bright Test ABG Potassium A-a O2 Difference Glucose Lactate Vent Mode Mechanical Rate FiO2 Tidal Volume PEEP Sodium Potassium Chloride Carbon Dioxide Anion Gap BUN Creatinine Est GFR ( Amer) Est GFR (Non-Af Amer) POC Glucose (mg/dL) 156 H 243 H 104 Random Glucose Calcium Arterial Blood Potassium 07/01/18 07/01/18 07/01/18 04:50 04:50 05:13 WBC 4.6 L RBC 3.16 L Hgb 8.8 L Hct 27.5 L MCV 86.9 MCH 27.7 MCHC 31.9 L RDW 16.6 H Plt Count 237 pCO2 43 pO2 173 H HCO3 25.0 ABG pH 7.38 ABG Total CO2 26.7 ABG O2 Saturation 100.6 H ABG Base Excess 0 Bright Test Yes ABG Potassium 4.9 A-a O2 Difference 58.0 Glucose 192 H Lactate 2.7 H Vent Mode A/c Mechanical Rate 16 FiO2 40.0 Tidal Volume 450 PEEP 5 Sodium 133 132.0 Potassium 5.0 Chloride 100 103.0 Carbon Dioxide 23 Anion Gap 15 BUN 33 H Creatinine 1.2 Est GFR ( Amer) > 60 Est GFR (Non-Af Amer) > 60 POC Glucose (mg/dL) Random Glucose 198 H Calcium 8.6 Arterial Blood Potassium 4.9 07/01/18 07/01/18 05:48 10:54 WBC RBC Hgb Hct MCV MCH MCHC RDW Plt Count pCO2 pO2 HCO3 ABG pH ABG Total CO2 ABG O2 Saturation ABG Base Excess Bright Test ABG Potassium A-a O2 Difference Glucose Lactate Vent Mode Mechanical Rate FiO2 Tidal Volume PEEP Sodium Potassium Chloride Carbon Dioxide Anion Gap BUN Creatinine Est GFR ( Amer) Est GFR (Non-Af Amer) POC Glucose (mg/dL) 201 H 116 H Random Glucose Calcium Arterial Blood Potassium Assessment & Plan - Assessment and Plan (Free Text) Assessment: 67 y/o male w/ respiratory failure 2/2 pneumonia, most likely opportunistic, intubated since 06/15/18 with failure of multiple weaning attempts Plan: -tentative plan for trach this week, possibly Monday -hold Lovenox day of OR -NPO -cont abx per ID -appreciate ICU care -will follow -further recs per attending AKWhite PGY4
--- NOTE | 2018-07-01 14:38 | CP.PCM.PN ---
Subjective - Date & Time of Evaluation Date of Evaluation: 07/01/18 Time of Evaluation: 09:00 - Subjective Subjective: remains intubated and sedated NAD IV rx renewed Objective - Vital Signs/Intake and Output Vital Signs (last 24 hours): Temp Pulse Resp BP Pulse Ox 97 F L 51 L 16 92/57 L 100 07/01/18 12:00 07/01/18 14:00 07/01/18 14:00 07/01/18 14:00 07/01/18 14:00 Intake and Output: 07/01/18 07/01/18 06:59 18:59 Intake Total 2006 531 Output Total 1100 950 Balance 907 -419 - Medications Medications: Current Medications Acetaminophen (Tylenol 325mg Tab) 650 mg PO Q4 PRN PRN Reason: Fever >100.4 F Last Admin: 06/25/18 21:40 Dose: 650 mg Acetaminophen (Tylenol 650 Mg Supp) 650 mg [place] Q6 PRN PRN Reason: Fever >100.4 F Last Admin: 06/20/18 02:30 Dose: 650 mg Acetaminophen (Tylenol 650mg/20.3ml Solution Ud) 650 mg NG Q4 PRN PRN Reason: fever 100.4 or above Dextrose (Dextrose 50% Inj) 0 ml IV STAT PRN; Protocol PRN Reason: Hypoglycemia Protocol Dextrose (Glutose 15) 0 gm PO ONCE PRN; Protocol PRN Reason: Hypoglycemia Protocol Dimethicone (Proshield Plus Skin Protectant) 1 applic TOP Q8 [facility] Last Admin: 07/01/18 08:47 Dose: 1 applic Enoxaparin Sodium (Lovenox) 30 mg SC DAILY [facility]; Protocol Last Admin: 06/17/18 09:20 Dose: 30 mg Famotidine (Pepcid) 20 mg IVP Q12 [facility] Last Admin: 07/01/18 08:46 Dose: 20 mg Glucagon (Glucagen Diagnostic Kit) 0 mg IM STAT PRN; Protocol PRN Reason: Hypoglycemia Protocol Trimethoprim/Sulfamethoxazole (475 mg/ Dextrose) 500 mls @ 250 mls/hr IVPB Q12@0200,1400 [facility] Last Admin: 07/01/18 01:17 Dose: 250 mls/hr Ganciclovir 250 mg/ Sodium (Chloride) 100 mls @ 100 mls/hr IV Q12@0000,1200 [facility]; Protocol Last Admin: 07/01/18 11:37 Dose: 100 mls/hr Fentanyl Citrate 2,500 mcg/ (Dextrose) 250 mls @ 5.44 mls/hr IV .Q24H [facility]; Protocol Last Titration: 07/01/18 09:30 Dose: 3.5 mcg/kg/hr, 19.05 mls/hr Propofol (Diprivan) 1,000 mg in 100 mls @ 3.266 mls/hr IV .Q24H [facility]; Protocol Stop: 07/02/18 01:20 Last Titration: 07/01/18 10:25 Dose: 0 mcg/kg/min, 0 mls/hr Insulin Human Lispro (Humalog) 0 units SC 0000,0600,1200,1800 [facility]; Protocol Last Admin: 07/01/18 12:10 Dose: Not Given Lamivudine (Epivir) 300 mg PO DAILY [facility]; Protocol Last Admin: 07/01/18 08:46 Dose: 300 mg Methylprednisolone (Solu-Medrol) 20 mg IVP Q12 [facility] Last Admin: 07/01/18 08:46 Dose: 20 mg Morphine Sulfate (Morphine) 2 mg IVP Q6 PRN PRN Reason: Pain, moderate (4-7) Last Admin: 06/30/18 16:17 Dose: 2 mg Nystatin (Nystop Topical Powder) 1 applic TOP TID [facility] Last Admin: 07/01/18 14:08 Dose: 1 applic Raltegravir (Isentress) 400 mg PO BID [facility]; Protocol Last Admin: 07/01/18 08:46 Dose: 400 mg Tenofovir Disoproxil Fumarate (Viread) 300 mg PO DAILY [facility]; Protocol Last Admin: 07/01/18 08:48 Dose: 300 mg - Labs Labs: 07/01/18 04:50 07/01/18 04:50 PT 13.1 Seconds (9.8-13.1) 06/18/18 05:47 INR 1.2 06/18/18 05:47 APTT 28.9 Seconds (25.6-37.1) 06/18/18 05:47 - Constitutional Appears: No Acute Distress, Confused, Cachectic, Chronically Ill - Eye Exam Eye Exam: PERRL. absent: Scleral icterus - ENT Exam ENT Exam: Mucous Membranes Dry, Normal External Ear Exam - Neck Exam Neck Exam: absent: Lymphadenopathy - Respiratory Exam Respiratory Exam: Decreased Breath Sounds, Prolonged Expiratory Phase, Rhonchi - Cardiovascular Exam Cardiovascular Exam: REGULAR RHYTHM - GI/Abdominal Exam GI & Abdominal Exam: Distended, Soft. absent: Tenderness - Rectal Exam Rectal Exam: Deferred - Exam Exam: NORMAL INSPECTION - Extremities Exam Extremities Exam: Full ROM - Back Exam Back Exam: absent: CVA tenderness (L), CVA tenderness (R), paraspinal tenderness - Neurological Exam Neurological Exam: Altered - Psychiatric Exam Psychiatric exam: Depressed - Skin Skin Exam: Dry Assessment and Plan (1) Acute renal failure Status: Acute (2) Altered mental status Status: Acute (3) Diabetes mellitus Status: Acute (4) HIV (human immunodeficiency virus infection) Status: Acute (5) Pneumonia Status: Acute (6) Encephalopathy Status: Acute (7) CMV (cytomegalovirus) infection Status: Acute - Assessment and Plan (Free Text) Assessment: 67 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 CMV , HSV ) Started on HAART rx as well as IV Gancyclovir Bactrim IV to cont for 7 more days then switch to PO For OR in am - needs Trach and PEG
--- NOTE | 2018-07-01 14:45 | CP.PCM.PN ---
Subjective - Date & Time of Evaluation Date of Evaluation: 07/01/18 Time of Evaluation: 13:50 - Subjective Subjective: F/U Respiratory failure. Intubated, sedated Objective - Vital Signs/Intake and Output Vital Signs (last 24 hours): Temp Pulse Resp BP Pulse Ox 97 F L 51 L 16 92/57 L 100 07/01/18 12:00 07/01/18 14:00 07/01/18 14:00 07/01/18 14:00 07/01/18 14:00 Intake and Output: 07/01/18 07/01/18 06:59 18:59 Intake Total 2006 531 Output Total 1100 950 Balance 907 -419 - Medications Medications: Current Medications Acetaminophen (Tylenol 325mg Tab) 650 mg PO Q4 PRN PRN Reason: Fever >100.4 F Last Admin: 06/25/18 21:40 Dose: 650 mg Acetaminophen (Tylenol 650 Mg Supp) 650 mg DE Q6 PRN PRN Reason: Fever >100.4 F Last Admin: 06/20/18 02:30 Dose: 650 mg Acetaminophen (Tylenol 650mg/20.3ml Solution Ud) 650 mg NG Q4 PRN PRN Reason: fever 100.4 or above Dextrose (Dextrose 50% Inj) 0 ml IV STAT PRN; Protocol PRN Reason: Hypoglycemia Protocol Dextrose (Glutose 15) 0 gm PO ONCE PRN; Protocol PRN Reason: Hypoglycemia Protocol Dimethicone (Proshield Plus Skin Protectant) 1 applic TOP Q8 [facility] Last Admin: 07/01/18 08:47 Dose: 1 applic Enoxaparin Sodium (Lovenox) 30 mg SC DAILY [facility]; Protocol Last Admin: 06/17/18 09:20 Dose: 30 mg Famotidine (Pepcid) 20 mg IVP Q12 [facility] Last Admin: 07/01/18 08:46 Dose: 20 mg Glucagon (Glucagen Diagnostic Kit) 0 mg IM STAT PRN; Protocol PRN Reason: Hypoglycemia Protocol Trimethoprim/Sulfamethoxazole (475 mg/ Dextrose) 500 mls @ 250 mls/hr IVPB Q12@0200,1400 [facility] Last Admin: 07/01/18 01:17 Dose: 250 mls/hr Ganciclovir 250 mg/ Sodium (Chloride) 100 mls @ 100 mls/hr IV Q12@0000,1200 [facility]; Protocol Last Admin: 07/01/18 11:37 Dose: 100 mls/hr Fentanyl Citrate 2,500 mcg/ (Dextrose) 250 mls @ 5.44 mls/hr IV .Q24H [facility]; Protocol Last Titration: 07/01/18 09:30 Dose: 3.5 mcg/kg/hr, 19.05 mls/hr Propofol (Diprivan) 1,000 mg in 100 mls @ 3.266 mls/hr IV .Q24H [facility]; Protocol Stop: 07/02/18 01:20 Last Titration: 07/01/18 10:25 Dose: 0 mcg/kg/min, 0 mls/hr Insulin Human Lispro (Humalog) 0 units SC 0000,0600,1200,1800 [facility]; Protocol Last Admin: 07/01/18 12:10 Dose: Not Given Lamivudine (Epivir) 300 mg PO DAILY [facility]; Protocol Last Admin: 07/01/18 08:46 Dose: 300 mg Methylprednisolone (Solu-Medrol) 20 mg IVP Q12 [facility] Last Admin: 07/01/18 08:46 Dose: 20 mg Morphine Sulfate (Morphine) 2 mg IVP Q6 PRN PRN Reason: Pain, moderate (4-7) Last Admin: 06/30/18 16:17 Dose: 2 mg Nystatin (Nystop Topical Powder) 1 applic TOP TID [facility] Last Admin: 07/01/18 14:08 Dose: 1 applic Raltegravir (Isentress) 400 mg PO BID [facility]; Protocol Last Admin: 07/01/18 08:46 Dose: 400 mg Tenofovir Disoproxil Fumarate (Viread) 300 mg PO DAILY [facility]; Protocol Last Admin: 07/01/18 08:48 Dose: 300 mg - Labs Labs: 07/01/18 04:50 07/01/18 04:50 PT 13.1 Seconds (9.8-13.1) 06/18/18 05:47 INR 1.2 06/18/18 05:47 APTT 28.9 Seconds (25.6-37.1) 06/18/18 05:47 - Constitutional Appears: Chronically Ill - Head Exam Head Exam: NORMAL INSPECTION - Eye Exam Additional comments: Pupils sluggish reaction to light - ENT Exam Additional comments: Intubated. OGT - Neck Exam Neck Exam: Normal Inspection - Respiratory Exam Respiratory Exam: Decreased Breath Sounds (at bases), Rhonchi (at bases) - Cardiovascular Exam Cardiovascular Exam: REGULAR RHYTHM - GI/Abdominal Exam GI & Abdominal Exam: Soft, Normal Bowel Sounds - Exam Additional comments: Yang Cath - Extremities Exam Additional comments: Edema JOHN - Neurological Exam Additional comments: Intubated, sedated, does not follows commands, - Skin Skin Exam: Warm Assessment and Plan (1) Respiratory failure Status: Acute (2) Altered mental status Status: Acute (3) HIV (human immunodeficiency virus infection) Status: Acute (4) Fever Status: Acute (5) Pneumonia Status: Acute (6) Severe sepsis Status: Acute (7) Acute renal failure Status: Acute (8) Diabetes mellitus Status: Acute - Assessment and Plan (Free Text) Plan: Continue ventilatory support, Morphine, Fentanyl, Epivir, Insulin, Ganciclovir and rest of Tx. For tracheotomy on Monday. Critical care time: 31 min.
[2018-07-01] MEDS: Fentanyl Citrate 2,500 MCG in Dextrose 5% In Water 200 ML IV SCH (15:41)
--- NOTE | 2018-07-01 19:02 | CP.PCM.CON ---
History of Present Illness - History of Present Illness History of Present Illness: General Surgery Agree with resident's note. Pt seen and examined this evening. Unable to obtain review of systems due to pt's current mental status. Pt is sedated and intubated. Labs and vitals noted. PE Gen: Pt asleep, arousable but does not follow command. Intubated. TF running. Skin: warm and dry Cardio: s1s2 RRR Lungs: (+) mild wheeze in bilateral lung cedeño, (+) intubated. Abd: Soft, (-) apparent tenderness Extr: (-) edema A/P Respiratory failure unable to wean. - plan for trach 07/03/18 - cont abx per ID - Monitor labs Past Patient History - Past Social History Smoking Status: Never Smoked Alcohol: None (Pt deied) Drugs: Denies (Pt denied.) Home Situation {Lives}: Alone - CARDIAC Hx Pacemaker: No - HEMATOLOGICAL/ONCOLOGICAL Hx Cancer: No - MUSCULOSKELETAL/RHEUMATOLOGICAL Hx Falls: No - PSYCHIATRIC Hx Substance Use: No - SURGICAL HISTORY Hx Mastectomy: No Meds Allergies/Adverse Reactions: Allergies Allergy/AdvReac Type Severity Reaction Status Date / Time Unobtainable Allergy Verified 06/11/18 20:48 - Medications Medications: Current Medications Acetaminophen (Tylenol 325mg Tab) 650 mg PO Q4 PRN PRN Reason: Fever >100.4 F Last Admin: 06/25/18 21:40 Dose: 650 mg Acetaminophen (Tylenol 650 Mg Supp) 650 mg SC Q6 PRN PRN Reason: Fever >100.4 F Last Admin: 06/20/18 02:30 Dose: 650 mg Acetaminophen (Tylenol 650mg/20.3ml Solution Ud) 650 mg NG Q4 PRN PRN Reason: fever 100.4 or above Dextrose (Dextrose 50% Inj) 0 ml IV STAT PRN; Protocol PRN Reason: Hypoglycemia Protocol Dextrose (Glutose 15) 0 gm PO ONCE PRN; Protocol PRN Reason: Hypoglycemia Protocol Dimethicone (Proshield Plus Skin Protectant) 1 applic TOP Q8 [facility] Last Admin: 07/01/18 17:37 Dose: 1 applic Enoxaparin Sodium (Lovenox) 30 mg SC DAILY [facility]; Protocol Last Admin: 06/17/18 09:20 Dose: 30 mg Famotidine (Pepcid) 20 mg IVP Q12 [facility] Last Admin: 07/01/18 08:46 Dose: 20 mg Glucagon (Glucagen Diagnostic Kit) 0 mg IM STAT PRN; Protocol PRN Reason: Hypoglycemia Protocol Trimethoprim/Sulfamethoxazole (475 mg/ Dextrose) 500 mls @ 250 mls/hr IVPB Q12@0200,1400 [facility] Last Admin: 07/01/18 15:42 Dose: 250 mls/hr Ganciclovir 250 mg/ Sodium (Chloride) 100 mls @ 100 mls/hr IV Q12@0000,1200 [facility]; Protocol Last Admin: 07/01/18 11:37 Dose: 100 mls/hr Fentanyl Citrate 2,500 mcg/ (Dextrose) 250 mls @ 5.44 mls/hr IV .Q24H [facility]; Protocol Last Titration: 07/01/18 16:59 Dose: 4.5 mcg/kg/hr, 24.49 mls/hr Propofol (Diprivan) 1,000 mg in 100 mls @ 3.266 mls/hr IV .Q24H [facility]; Protocol Stop: 07/02/18 01:20 Last Titration: 07/01/18 10:25 Dose: 0 mcg/kg/min, 0 mls/hr Insulin Human Lispro (Humalog) 0 units SC 0000,0600,1200,1800 [facility]; Protocol Last Admin: 07/01/18 17:36 Dose: 1 units Lamivudine (Epivir) 300 mg PO DAILY [facility]; Protocol Last Admin: 07/01/18 08:46 Dose: 300 mg Methylprednisolone (Solu-Medrol) 20 mg IVP Q12 [facility] Last Admin: 07/01/18 08:46 Dose: 20 mg Morphine Sulfate (Morphine) 2 mg IVP Q6 PRN PRN Reason: Pain, moderate (4-7) Last Admin: 06/30/18 16:17 Dose: 2 mg Nystatin (Nystop Topical Powder) 1 applic TOP TID [facility] Last Admin: 07/01/18 17:37 Dose: 1 applic Raltegravir (Isentress) 400 mg PO BID [facility]; Protocol Last Admin: 07/01/18 17:37 Dose: 400 mg Tenofovir Disoproxil Fumarate (Viread) 300 mg PO DAILY [facility]; Protocol Last Admin: 07/01/18 08:48 Dose: 300 mg Results - Vital Signs Recent Vital Signs: Last Vital Signs Temp 96.9 F L 07/01/18 16:00 Pulse 63 07/01/18 16:00 Resp 17 07/01/18 16:00 BP 97/62 L 07/01/18 16:00 Pulse Ox 99 07/01/18 16:00 - Labs Result Diagrams: 07/01/18 04:50 07/01/18 04:50 Labs: Laboratory Results - last 24 hr 06/30/18 07/01/18 07/01/18 22:31 04:50 04:50 WBC 4.6 L RBC 3.16 L Hgb 8.8 L Hct 27.5 L MCV 86.9 MCH 27.7 MCHC 31.9 L RDW 16.6 H Plt Count 237 pCO2 pO2 HCO3 ABG pH ABG Total CO2 ABG O2 Saturation ABG Base Excess Bright Test ABG Potassium A-a O2 Difference Glucose Lactate Vent Mode Mechanical Rate FiO2 Tidal Volume PEEP Sodium 133 Potassium 5.0 Chloride 100 Carbon Dioxide 23 Anion Gap 15 BUN 33 H Creatinine 1.2 Est GFR ( Amer) > 60 Est GFR (Non-Af Amer) > 60 POC Glucose (mg/dL) 104 Random Glucose 198 H Calcium 8.6 Arterial Blood Potassium 07/01/18 07/01/18 07/01/18 05:13 05:48 10:54 WBC RBC Hgb Hct MCV MCH MCHC RDW Plt Count pCO2 43 pO2 173 H HCO3 25.0 ABG pH 7.38 ABG Total CO2 26.7 ABG O2 Saturation 100.6 H ABG Base Excess 0 Bright Test Yes ABG Potassium 4.9 A-a O2 Difference 58.0 Glucose 192 H Lactate 2.7 H Vent Mode A/c Mechanical Rate 16 FiO2 40.0 Tidal Volume 450 PEEP 5 Sodium 132.0 Potassium Chloride 103.0 Carbon Dioxide Anion Gap BUN Creatinine Est GFR ( Amer) Est GFR (Non-Af Amer) POC Glucose (mg/dL) 201 H 116 H Random Glucose Calcium Arterial Blood Potassium 4.9 07/01/18 15:44 WBC RBC Hgb Hct MCV MCH MCHC RDW Plt Count pCO2 pO2 HCO3 ABG pH ABG Total CO2 ABG O2 Saturation ABG Base Excess Bright Test ABG Potassium A-a O2 Difference Glucose Lactate Vent Mode Mechanical Rate FiO2 Tidal Volume PEEP Sodium Potassium Chloride Carbon Dioxide Anion Gap BUN Creatinine Est GFR ( Amer) Est GFR (Non-Af Amer) POC Glucose (mg/dL) 178 H Random Glucose Calcium Arterial Blood Potassium
--- NOTE | 2018-07-01 21:55 | CP.PCM.PN ---
Subjective - Date & Time of Evaluation Date of Evaluation: 07/01/18 Time of Evaluation: 13:00 - Subjective Subjective: renal note no events overnight vtials reviewed heen tnormal ETT+ no jvd s1s2 present npre sp dostress, vent dep abd soft nt nd no edema crisostomo+ ao times 0 martha/sepsis syndrome/acute resp failure/hyperkalemia/hiv disease cr is stable monitor I&Os lytes reviewed volume stable continue tube feeds sodium stable abx per icu Objective - Vital Signs/Intake and Output Vital Signs (last 24 hours): Temp Pulse Resp BP Pulse Ox 97.1 F L 55 L 16 149/91 H 100 07/01/18 20:00 07/01/18 21:00 07/01/18 21:00 07/01/18 21:00 07/01/18 21:00 Intake and Output: 07/01/18 07/02/18 18:59 06:59 Intake Total 1532 20 Output Total 1225 200 Balance 307 -180 - Medications Medications: Current Medications Acetaminophen (Tylenol 325mg Tab) 650 mg PO Q4 PRN PRN Reason: Fever >100.4 F Last Admin: 06/25/18 21:40 Dose: 650 mg Acetaminophen (Tylenol 650 Mg Supp) 650 mg MS Q6 PRN PRN Reason: Fever >100.4 F Last Admin: 06/20/18 02:30 Dose: 650 mg Acetaminophen (Tylenol 650mg/20.3ml Solution Ud) 650 mg NG Q4 PRN PRN Reason: fever 100.4 or above Dextrose (Dextrose 50% Inj) 0 ml IV STAT PRN; Protocol PRN Reason: Hypoglycemia Protocol Dextrose (Glutose 15) 0 gm PO ONCE PRN; Protocol PRN Reason: Hypoglycemia Protocol Dimethicone (Proshield Plus Skin Protectant) 1 applic TOP Q8 [facility] Last Admin: 07/01/18 17:37 Dose: 1 applic Enoxaparin Sodium (Lovenox) 30 mg SC DAILY [facility]; Protocol Last Admin: 06/17/18 09:20 Dose: 30 mg Famotidine (Pepcid) 20 mg IVP Q12 [facility] Last Admin: 07/01/18 21:09 Dose: 20 mg Glucagon (Glucagen Diagnostic Kit) 0 mg IM STAT PRN; Protocol PRN Reason: Hypoglycemia Protocol Trimethoprim/Sulfamethoxazole (475 mg/ Dextrose) 500 mls @ 250 mls/hr IVPB Q12@0200,1400 [facility] Last Admin: 07/01/18 15:42 Dose: 250 mls/hr Ganciclovir 250 mg/ Sodium (Chloride) 100 mls @ 100 mls/hr IV Q12@0000,1200 [facility]; Protocol Last Admin: 07/01/18 11:37 Dose: 100 mls/hr Fentanyl Citrate 2,500 mcg/ (Dextrose) 250 mls @ 5.44 mls/hr IV .Q24H [facility]; Protocol Last Titration: 07/01/18 16:59 Dose: 4.5 mcg/kg/hr, 24.49 mls/hr Propofol (Diprivan) 1,000 mg in 100 mls @ 3.266 mls/hr IV .Q24H [facility]; Protocol Stop: 07/02/18 01:20 Last Titration: 07/01/18 10:25 Dose: 0 mcg/kg/min, 0 mls/hr Insulin Human Lispro (Humalog) 0 units SC 0000,0600,1200,1800 [facility]; Protocol Last Admin: 07/01/18 17:36 Dose: 1 units Lamivudine (Epivir) 300 mg PO DAILY [facility]; Protocol Last Admin: 07/01/18 08:46 Dose: 300 mg Methylprednisolone (Solu-Medrol) 20 mg IVP Q12 [facility] Last Admin: 07/01/18 21:11 Dose: 20 mg Morphine Sulfate (Morphine) 2 mg IVP Q6 PRN PRN Reason: Pain, moderate (4-7) Last Admin: 06/30/18 16:17 Dose: 2 mg Nystatin (Nystop Topical Powder) 1 applic TOP TID [facility] Last Admin: 07/01/18 17:37 Dose: 1 applic Raltegravir (Isentress) 400 mg PO BID [facility]; Protocol Last Admin: 07/01/18 17:37 Dose: 400 mg Tenofovir Disoproxil Fumarate (Viread) 300 mg PO DAILY [facility]; Protocol Last Admin: 07/01/18 08:48 Dose: 300 mg - Labs Labs: 07/01/18 04:50 07/01/18 04:50 PT 13.1 Seconds (9.8-13.1) 06/18/18 05:47 INR 1.2 06/18/18 05:47 APTT 28.9 Seconds (25.6-37.1) 06/18/18 05:47
[2018-07-02] MEDS: SULFAMETHOXAZOLE IVPB SCH (01:43)
[2018-07-02] MEDS: TRIMETHOPRIM IVPB SCH (01:43)
[2018-07-02] MEDS: WATER IVPB SCH (01:43)
[2018-07-02] MEDS: DEXTROSE 5% IVPB SCH (01:43)
[2018-07-02] MEDS: Fentanyl Citrate 2,500 MCG in Dextrose 5% In Water 200 ML IV SCH ×2 (02:27→14:39)
[2018-07-02 05:02] LABS: BLOOD UREA NITROGEN 28 mg/dl (9-20); CALCIUM 8.8 mg/dL (8.4-10.2); GFR NON-AFRICAN AMERICAN > 60
[2018-07-02 05:13] LABS: HEMOGLOBIN 9.8 g/dL (12.0-18.0); MEAN CELL VOLUME 87.9 fl (80.0-94.0); MEAN CORPUSCULAR HEMOGLOBIN 28.5 pg (27.0-31.0); MEAN CORPUSCULAR HGB CONC 32.4 g/dL (33.0-37.0); RBC 3.45 Mil/uL (4.40-5.90); RED CELL DISTRIBUTION WIDTH 16.6 % (11.5-14.5); WHITE BLOOD COUNT 4.7 K/uL (4.8-10.8)
[2018-07-02 06:03] LABS: ABG ALLEN TEST YES; ARTERIAL BLOOD GAS HCO3 23.5 mmol/L (21-28); ARTERIAL BLOOD GAS HEMOGLOBIN 10.1 g/dL (11.7-17.4); ARTERIAL BLOOD GAS O2 CONTENT 13.9 ML/dL (15-23); ARTERIAL BLOOD GAS O2 SAT 99.6 % (95-98); ARTERIAL BLOOD GAS PCO2 54 mm/Hg (35-45); ARTERIAL BLOOD GAS PH 7.28 (7.35-7.45); ARTERIAL BLOOD GAS PO2 120 mm/Hg (80-100); ARTERIAL BLOOD GAS TCO2 27.1 mmol/L (22-28)
--- NOTE | 2018-07-02 07:20 | CP.PCM.PN ---
<Shiraz Nash - Last Filed: 07/02/18 08:58> Subjective - Date & Time of Evaluation Date of Evaluation: 07/02/18 Time of Evaluation: 07:17 - Subjective Subjective: Surgery Progress Note Patient seen and examined at bedside. GCS 9T [id number]. Remains intubated on PRVC 450 20 40 5. Sedated on fentanyl. on trickle feeds. Plan for OR tomorrow for Tracheotomy Objective - Vital Signs/Intake and Output Vital Signs (last 24 hours): Temp Pulse Resp BP Pulse Ox 97 F L 76 16 155/88 H 100 07/02/18 05:00 07/02/18 06:00 07/02/18 06:00 07/02/18 06:00 07/02/18 06:00 Intake and Output: 07/02/18 07/02/18 06:59 18:59 Intake Total 1285 Output Total 1220 Balance 65 - Medications Medications: Current Medications Acetaminophen (Tylenol 325mg Tab) 650 mg PO Q4 PRN PRN Reason: Fever >100.4 F Last Admin: 06/25/18 21:40 Dose: 650 mg Acetaminophen (Tylenol 650 Mg Supp) 650 mg DC Q6 PRN PRN Reason: Fever >100.4 F Last Admin: 06/20/18 02:30 Dose: 650 mg Acetaminophen (Tylenol 650mg/20.3ml Solution Ud) 650 mg NG Q4 PRN PRN Reason: fever 100.4 or above Dextrose (Dextrose 50% Inj) 0 ml IV STAT PRN; Protocol PRN Reason: Hypoglycemia Protocol Dextrose (Glutose 15) 0 gm PO ONCE PRN; Protocol PRN Reason: Hypoglycemia Protocol Dimethicone (Proshield Plus Skin Protectant) 1 applic TOP Q8 [facility] Last Admin: 07/01/18 17:37 Dose: 1 applic Enoxaparin Sodium (Lovenox) 30 mg SC DAILY [facility]; Protocol Last Admin: 06/17/18 09:20 Dose: 30 mg Famotidine (Pepcid) 20 mg IVP Q12 [facility] Last Admin: 07/01/18 21:09 Dose: 20 mg Glucagon (Glucagen Diagnostic Kit) 0 mg IM STAT PRN; Protocol PRN Reason: Hypoglycemia Protocol Trimethoprim/Sulfamethoxazole (475 mg/ Dextrose) 500 mls @ 250 mls/hr IVPB Q12@0200,1400 [facility] Last Admin: 07/02/18 01:43 Dose: 250 mls/hr Ganciclovir 250 mg/ Sodium (Chloride) 100 mls @ 100 mls/hr IV Q12@0000,1200 [facility]; Protocol Last Admin: 07/02/18 00:42 Dose: 100 mls/hr Fentanyl Citrate 2,500 mcg/ (Dextrose) 250 mls @ 5.44 mls/hr IV .Q24H [facility]; Protocol Last Titration: 07/02/18 05:03 Dose: 4.5 mcg/kg/hr, 24.49 mls/hr Insulin Human Lispro (Humalog) 0 units SC 0000,0600,1200,1800 [facility]; Protocol Last Admin: 07/01/18 23:00 Dose: Not Given Lamivudine (Epivir) 300 mg PO DAILY [facility]; Protocol Last Admin: 07/01/18 08:46 Dose: 300 mg Methylprednisolone (Solu-Medrol) 20 mg IVP Q12 [facility] Last Admin: 07/01/18 21:11 Dose: 20 mg Morphine Sulfate (Morphine) 2 mg IVP Q6 PRN PRN Reason: Pain, moderate (4-7) Last Admin: 06/30/18 16:17 Dose: 2 mg Nystatin (Nystop Topical Powder) 1 applic TOP TID [facility] Last Admin: 07/01/18 17:37 Dose: 1 applic Raltegravir (Isentress) 400 mg PO BID [facility]; Protocol Last Admin: 07/01/18 17:37 Dose: 400 mg Tenofovir Disoproxil Fumarate (Viread) 300 mg PO DAILY [facility]; Protocol Last Admin: 07/01/18 08:48 Dose: 300 mg - Labs Labs: 07/02/18 04:30 07/02/18 04:30 PT 13.1 Seconds (9.8-13.1) 06/18/18 05:47 INR 1.2 06/18/18 05:47 APTT 28.9 Seconds (25.6-37.1) 06/18/18 05:47 - Constitutional Appears: Cachectic, Chronically Ill - Eye Exam Eye Exam: absent: Scleral icterus - ENT Exam ENT Exam: Mucous Membranes Moist - Respiratory Exam Respiratory Exam: absent: Accessory Muscle Use Additional comments: Intubated on PRVC - GI/Abdominal Exam GI & Abdominal Exam: Soft. absent: Distended, Rigid, Tenderness Additional comments: on tube feeds - Neurological Exam Additional comments: GCS 9T [id number] - Skin Skin Exam: Warm Assessment and Plan - Assessment and Plan (Free Text) Assessment: 67 y/o male w/ respiratory failure 2/2 pneumonia, most likely opportunistic, intubated since 06/15/18 with failure of multiple weaning attempts Plan: -tentative plan for trach Monday 07/03 -hold Lovenox day of OR -NPO -cont abx per ID -management per critical care team -will follow -further recs per surgical attending PGY2 <Moises Ortiz - Last Filed: 07/02/18 10:28> Objective - Vital Signs/Intake and Output Vital Signs (last 24 hours): Temp Pulse Resp BP Pulse Ox 96.6 F L 61 20 108/65 100 07/02/18 08:00 07/02/18 10:00 07/02/18 10:00 07/02/18 10:00 07/02/18 10:00 Intake and Output: 07/02/18 07/02/18 06:59 18:59 Intake Total 1285 198 Output Total 1220 Balance 65 198 - Medications Medications: Current Medications Acetaminophen (Tylenol 325mg Tab) 650 mg PO Q4 PRN PRN Reason: Fever >100.4 F Last Admin: 06/25/18 21:40 Dose: 650 mg Acetaminophen (Tylenol 650 Mg Supp) 650 mg DC Q6 PRN PRN Reason: Fever >100.4 F Last Admin: 06/20/18 02:30 Dose: 650 mg Acetaminophen (Tylenol 650mg/20.3ml Solution Ud) 650 mg NG Q4 PRN PRN Reason: fever 100.4 or above Dextrose (Dextrose 50% Inj) 0 ml IV STAT PRN; Protocol PRN Reason: Hypoglycemia Protocol Dextrose (Glutose 15) 0 gm PO ONCE PRN; Protocol PRN Reason: Hypoglycemia Protocol Dimethicone (Proshield Plus Skin Protectant) 1 applic TOP Q8 [facility] Last Admin: 07/02/18 08:46 Dose: 1 applic Enoxaparin Sodium (Lovenox) 30 mg SC DAILY [facility]; Protocol Last Admin: 06/17/18 09:20 Dose: 30 mg Famotidine (Pepcid) 20 mg IVP Q12 [facility] Last Admin: 07/02/18 08:54 Dose: 20 mg Glucagon (Glucagen Diagnostic Kit) 0 mg IM STAT PRN; Protocol PRN Reason: Hypoglycemia Protocol Trimethoprim/Sulfamethoxazole (475 mg/ Dextrose) 500 mls @ 250 mls/hr IVPB Q12@0200,1400 [facility] Last Admin: 07/02/18 01:43 Dose: 250 mls/hr Ganciclovir 250 mg/ Sodium (Chloride) 100 mls @ 100 mls/hr IV Q12@0000,1200 [facility]; Protocol Last Admin: 07/02/18 00:42 Dose: 100 mls/hr Fentanyl Citrate 2,500 mcg/ (Dextrose) 250 mls @ 5.44 mls/hr IV .Q24H [facility]; Protocol Last Titration: 07/02/18 05:03 Dose: 4.5 mcg/kg/hr, 24.49 mls/hr Insulin Human Lispro (Humalog) 0 units SC 0000,0600,1200,1800 [facility]; Protocol Last Admin: 07/02/18 08:44 Dose: 1 units Lamivudine (Epivir) 300 mg PO DAILY [facility]; Protocol Last Admin: 07/02/18 08:47 Dose: 300 mg Methylprednisolone (Solu-Medrol) 20 mg IVP Q12 [facility] Last Admin: 07/02/18 08:47 Dose: 20 mg Morphine Sulfate (Morphine) 2 mg IVP Q6 PRN PRN Reason: Pain, moderate (4-7) Last Admin: 06/30/18 16:17 Dose: 2 mg Nystatin (Nystop Topical Powder) 1 applic TOP TID [facility] Last Admin: 07/01/18 17:37 Dose: 1 applic Raltegravir (Isentress) 400 mg PO BID [facility]; Protocol Last Admin: 07/02/18 08:45 Dose: 400 mg Tenofovir Disoproxil Fumarate (Viread) 300 mg PO DAILY [facility]; Protocol Last Admin: 07/02/18 08:49 Dose: 300 mg - Labs Labs: 07/02/18 04:30 07/02/18 04:30 PT 13.1 Seconds (9.8-13.1) 06/18/18 05:47 INR 1.2 06/18/18 05:47 APTT 28.9 Seconds (25.6-37.1) 06/18/18 05:47 Assessment and Plan - Assessment and Plan (Free Text) Plan: agree with resident NPO after midnight tracheostomy 07/02 d/w family regarding need for tracheostomy, family to come to hospital to discuss about surgery
--- NOTE | 2018-07-02 08:31 | RAD ---
Date of service: 07/02/2018 HISTORY: REEVALUATE COMPARISON: Portable chest 07/01/2018. FINDINGS: LUNGS: Endotracheal tube terminates 10.7 cm above the cassie. Consider adjusting more inferiorly into the trachea and confirming by follow-up radiography. Nasogastric tube is identified at the left upper quadrant once again. Right PICC unchanged. Limited bilateral infiltrates, left greater than right, minimal at the right in fact. PLEURA: No significant pleural effusion identified, no pneumothorax apparent. CARDIOVASCULAR: No aortic atherosclerotic calcification present. Normal cardiac size. No pulmonary vascular congestion. OSSEOUS STRUCTURES: No significant abnormalities. VISUALIZED UPPER ABDOMEN: Normal. OTHER FINDINGS: None. IMPRESSION: Stable bilateral infiltrates, left greater than right. Endotracheal tube terminates 10.7 cm above the cassie. Advancing tube antegrade into the trachea further follow-up by confirmation radiography.
[2018-07-02] MEDS: Insulin Lispro (humaLOG) 100 Units/ml Inj SC SCH ×3 (08:44→17:10)
[2018-07-02] MEDS: Proshield Plus GEL TOP SCH ×2 (08:46→17:08)
[2018-07-02] MEDS: MethylPREDNISolone 40 mg Vial IVP SCH (08:47)
--- NOTE | 2018-07-02 09:01 | CP.PCM.PN ---
Subjective - Date & Time of Evaluation Date of Evaluation: 07/02/18 Time of Evaluation: 09:01 - Subjective Subjective: Patient unchanged clinically remain intubated Vital signs noted Objective - Vital Signs/Intake and Output Vital Signs (last 24 hours): Temp Pulse Resp BP Pulse Ox 96.6 F L 63 20 124/85 100 07/02/18 08:00 07/02/18 08:00 07/02/18 08:00 07/02/18 08:00 07/02/18 08:00 Intake and Output: 07/02/18 07/02/18 06:59 18:59 Intake Total 1285 68 Output Total 1220 Balance 65 68 - Medications Medications: Current Medications Acetaminophen (Tylenol 325mg Tab) 650 mg PO Q4 PRN PRN Reason: Fever >100.4 F Last Admin: 06/25/18 21:40 Dose: 650 mg Acetaminophen (Tylenol 650 Mg Supp) 650 mg IN Q6 PRN PRN Reason: Fever >100.4 F Last Admin: 06/20/18 02:30 Dose: 650 mg Acetaminophen (Tylenol 650mg/20.3ml Solution Ud) 650 mg NG Q4 PRN PRN Reason: fever 100.4 or above Dextrose (Dextrose 50% Inj) 0 ml IV STAT PRN; Protocol PRN Reason: Hypoglycemia Protocol Dextrose (Glutose 15) 0 gm PO ONCE PRN; Protocol PRN Reason: Hypoglycemia Protocol Dimethicone (Proshield Plus Skin Protectant) 1 applic TOP Q8 [facility] Last Admin: 07/02/18 08:46 Dose: 1 applic Enoxaparin Sodium (Lovenox) 30 mg SC DAILY [facility]; Protocol Last Admin: 06/17/18 09:20 Dose: 30 mg Famotidine (Pepcid) 20 mg IVP Q12 [facility] Last Admin: 07/02/18 08:54 Dose: 20 mg Glucagon (Glucagen Diagnostic Kit) 0 mg IM STAT PRN; Protocol PRN Reason: Hypoglycemia Protocol Trimethoprim/Sulfamethoxazole (475 mg/ Dextrose) 500 mls @ 250 mls/hr IVPB Q12@0200,1400 [facility] Last Admin: 07/02/18 01:43 Dose: 250 mls/hr Ganciclovir 250 mg/ Sodium (Chloride) 100 mls @ 100 mls/hr IV Q12@0000,1200 [facility]; Protocol Last Admin: 07/02/18 00:42 Dose: 100 mls/hr Fentanyl Citrate 2,500 mcg/ (Dextrose) 250 mls @ 5.44 mls/hr IV .Q24H [facility]; Protocol Last Titration: 07/02/18 05:03 Dose: 4.5 mcg/kg/hr, 24.49 mls/hr Insulin Human Lispro (Humalog) 0 units SC 0000,0600,1200,1800 [facility]; Protocol Last Admin: 07/02/18 08:44 Dose: 1 units Lamivudine (Epivir) 300 mg PO DAILY [facility]; Protocol Last Admin: 07/02/18 08:47 Dose: 300 mg Methylprednisolone (Solu-Medrol) 20 mg IVP Q12 [facility] Last Admin: 07/02/18 08:47 Dose: 20 mg Morphine Sulfate (Morphine) 2 mg IVP Q6 PRN PRN Reason: Pain, moderate (4-7) Last Admin: 06/30/18 16:17 Dose: 2 mg Nystatin (Nystop Topical Powder) 1 applic TOP TID [facility] Last Admin: 07/01/18 17:37 Dose: 1 applic Raltegravir (Isentress) 400 mg PO BID [facility]; Protocol Last Admin: 07/02/18 08:45 Dose: 400 mg Tenofovir Disoproxil Fumarate (Viread) 300 mg PO DAILY [facility]; Protocol Last Admin: 07/02/18 08:49 Dose: 300 mg - Labs Labs: 07/02/18 04:30 07/02/18 04:30 PT 13.1 Seconds (9.8-13.1) 06/18/18 05:47 INR 1.2 06/18/18 05:47 APTT 28.9 Seconds (25.6-37.1) 06/18/18 05:47 - Constitutional Appears: No Acute Distress - Eye Exam Eye Exam: Conjunctival injection - ENT Exam ENT Exam: Mucous Membranes Moist - Neck Exam Neck Exam: absent: Lymphadenopathy - Respiratory Exam Respiratory Exam: NORMAL BREATHING PATTERN. absent: Chest Wall Tenderness - Extremities Exam Extremities Exam: absent: Calf Tenderness - Back Exam Back Exam: absent: CVA tenderness (L), CVA tenderness (R) - Neurological Exam Neurological Exam: Altered - Skin Skin Exam: absent: Cyanosis Assessment and Plan (1) Acute renal failure Assessment & Plan: Acute renal failure related to HIV or sepsis or combination Sepsis Encephalopathy Respiratory failure Hyponatremia Recommendation Serum sodium keeps dropping the latest 127 Patient is receiving Bactrim intravenously mixed with D5W 500 cc each dose totaling 1000 cc D5W every day I spoke to the allied health instructor to discuss with infectious disease to discontinue Bactrim to another antibiotics or to mix Bactrim was normal saline and the pharmacist said that not possible The bottom line this hyponatremia will continue to worsen every day and less Bactrim intravenously has to be changed to something else Kidney function remains stable Status: Acute (2) HIV (human immunodeficiency virus infection) Status: Acute
--- NOTE | 2018-07-02 11:12 | CP.PCM.PN ---
Subjective - Date & Time of Evaluation Date of Evaluation: 07/02/18 Time of Evaluation: 08:00 - Subjective Subjective: seen in ICU afebrile intubated NAD Objective - Vital Signs/Intake and Output Vital Signs (last 24 hours): Temp Pulse Resp BP Pulse Ox 96.6 F L 66 20 106/64 100 07/02/18 08:00 07/02/18 11:00 07/02/18 11:00 07/02/18 11:00 07/02/18 11:00 Intake and Output: 07/02/18 07/02/18 06:59 18:59 Intake Total 1285 348 Output Total 1220 Balance 65 348 - Medications Medications: Current Medications Acetaminophen (Tylenol 325mg Tab) 650 mg PO Q4 PRN PRN Reason: Fever >100.4 F Last Admin: 06/25/18 21:40 Dose: 650 mg Acetaminophen (Tylenol 650 Mg Supp) 650 mg CO Q6 PRN PRN Reason: Fever >100.4 F Last Admin: 06/20/18 02:30 Dose: 650 mg Acetaminophen (Tylenol 650mg/20.3ml Solution Ud) 650 mg NG Q4 PRN PRN Reason: fever 100.4 or above Dextrose (Dextrose 50% Inj) 0 ml IV STAT PRN; Protocol PRN Reason: Hypoglycemia Protocol Dextrose (Glutose 15) 0 gm PO ONCE PRN; Protocol PRN Reason: Hypoglycemia Protocol Dimethicone (Proshield Plus Skin Protectant) 1 applic TOP Q8 [facility] Last Admin: 07/02/18 08:46 Dose: 1 applic Enoxaparin Sodium (Lovenox) 30 mg SC DAILY [facility]; Protocol Last Admin: 06/17/18 09:20 Dose: 30 mg Famotidine (Pepcid) 20 mg IVP Q12 [facility] Last Admin: 07/02/18 08:54 Dose: 20 mg Glucagon (Glucagen Diagnostic Kit) 0 mg IM STAT PRN; Protocol PRN Reason: Hypoglycemia Protocol Trimethoprim/Sulfamethoxazole (475 mg/ Dextrose) 500 mls @ 250 mls/hr IVPB Q12@0200,1400 [facility] Last Admin: 07/02/18 01:43 Dose: 250 mls/hr Ganciclovir 250 mg/ Sodium (Chloride) 100 mls @ 100 mls/hr IV Q12@0000,1200 [facility]; Protocol Last Admin: 07/02/18 00:42 Dose: 100 mls/hr Fentanyl Citrate 2,500 mcg/ (Dextrose) 250 mls @ 5.44 mls/hr IV .Q24H [facility]; Protocol Last Titration: 07/02/18 09:50 Dose: 4.5 mcg/kg/hr, 24.49 mls/hr Insulin Human Lispro (Humalog) 0 units SC 0000,0600,1200,1800 [facility]; Protocol Last Admin: 07/02/18 08:44 Dose: 1 units Lamivudine (Epivir) 300 mg PO DAILY [facility]; Protocol Last Admin: 07/02/18 08:47 Dose: 300 mg Methylprednisolone (Solu-Medrol) 20 mg IVP Q12 [facility] Last Admin: 07/02/18 08:47 Dose: 20 mg Morphine Sulfate (Morphine) 2 mg IVP Q6 PRN PRN Reason: Pain, moderate (4-7) Last Admin: 06/30/18 16:17 Dose: 2 mg Nystatin (Nystop Topical Powder) 1 applic TOP TID [facility] Last Admin: 07/02/18 11:02 Dose: Not Given Raltegravir (Isentress) 400 mg PO BID [facility]; Protocol Last Admin: 07/02/18 08:45 Dose: 400 mg Tenofovir Disoproxil Fumarate (Viread) 300 mg PO DAILY [facility]; Protocol Last Admin: 07/02/18 08:49 Dose: 300 mg - Labs Labs: 07/02/18 04:30 07/02/18 04:30 PT 13.1 Seconds (9.8-13.1) 06/18/18 05:47 INR 1.2 06/18/18 05:47 APTT 28.9 Seconds (25.6-37.1) 06/18/18 05:47 - Constitutional Appears: Confused, Cachectic, Chronically Ill - Head Exam Head Exam: NORMOCEPHALIC - Eye Exam Eye Exam: absent: Scleral icterus - ENT Exam ENT Exam: Mucous Membranes Dry - Neck Exam Neck Exam: absent: Lymphadenopathy - Respiratory Exam Respiratory Exam: Decreased Breath Sounds, Prolonged Expiratory Phase - Cardiovascular Exam Cardiovascular Exam: Tachycardia, REGULAR RHYTHM, +S1, +S2 - GI/Abdominal Exam GI & Abdominal Exam: Distended, Soft. absent: Tenderness - Rectal Exam Rectal Exam: Deferred - Exam Exam: NORMAL INSPECTION - Extremities Exam Extremities Exam: Pedal Edema - Back Exam Back Exam: absent: CVA tenderness (L), CVA tenderness (R) - Neurological Exam Neurological Exam: Altered Assessment and Plan (1) Acute renal failure Status: Acute (2) Altered mental status Status: Acute (3) Diabetes mellitus Status: Acute (4) HIV (human immunodeficiency virus infection) Status: Acute (5) Pneumonia Status: Acute (6) Encephalopathy Status: Acute (7) CMV (cytomegalovirus) infection Status: Acute - Assessment and Plan (Free Text) Assessment: switch to Bactrim elixir
[2018-07-02] MEDS ORDERED: MethylPREDNISolone 40 mg Vial IVP SCH (11:30)
[2018-07-02] MEDS ORDERED: MethylPREDNISolone 40 mg Vial IVP ONE (11:30)
--- NOTE | 2018-07-02 13:54 | RAD ---
Date of service: 07/02/2018 PROCEDURE: CHEST RADIOGRAPH, 1 VIEW HISTORY: ETT position COMPARISON: Multiple serial examinations preceding the most recent study: July 02, 2018 04:13. FINDINGS: LUNGS: Improved infiltrates PLEURA: No pneumothorax or pleural fluid seen. CARDIOVASCULAR: No aortic atherosclerotic calcification present. No radiographic findings to suggest acute or significant cardiovascular disease. PICC line in satisfactory position unchanged. OSSEOUS STRUCTURES: No significant abnormalities. VISUALIZED UPPER ABDOMEN: Normal. OTHER FINDINGS: Satisfactory position repositioned endotracheal tube. The tip is now 3.2 cm above the cassie. Satisfactory and stable position of nasogastric tube. IMPRESSION: Satisfactory position of recently repositioned endotracheal tube. Interval improved aeration of the lungs. Stable position of PICC line and nasogastric tube.
--- NOTE | 2018-07-02 14:49 | CP.PCM.PN ---
Subjective - Date & Time of Evaluation Date of Evaluation: 07/02/18 Time of Evaluation: 13:55 - Subjective Subjective: F/U respiratory Failure Pt intubated, sedated. Objective - Vital Signs/Intake and Output Vital Signs (last 24 hours): Temp Pulse Resp BP Pulse Ox 98.6 F 84 20 152/76 H 99 07/02/18 12:00 07/02/18 12:00 07/02/18 12:00 07/02/18 12:00 07/02/18 12:00 Intake and Output: 07/02/18 07/02/18 06:59 18:59 Intake Total 1285 496 Output Total 1220 Balance 65 496 - Medications Medications: Current Medications Acetaminophen (Tylenol 325mg Tab) 650 mg PO Q4 PRN PRN Reason: Fever >100.4 F Last Admin: 06/25/18 21:40 Dose: 650 mg Acetaminophen (Tylenol 650 Mg Supp) 650 mg RI Q6 PRN PRN Reason: Fever >100.4 F Last Admin: 06/20/18 02:30 Dose: 650 mg Acetaminophen (Tylenol 650mg/20.3ml Solution Ud) 650 mg NG Q4 PRN PRN Reason: fever 100.4 or above Dextrose (Dextrose 50% Inj) 0 ml IV STAT PRN; Protocol PRN Reason: Hypoglycemia Protocol Dextrose (Glutose 15) 0 gm PO ONCE PRN; Protocol PRN Reason: Hypoglycemia Protocol Dimethicone (Proshield Plus Skin Protectant) 1 applic TOP Q8 [facility] Last Admin: 07/02/18 08:46 Dose: 1 applic Enoxaparin Sodium (Lovenox) 30 mg SC DAILY [facility]; Protocol Last Admin: 06/17/18 09:20 Dose: 30 mg Famotidine (Pepcid) 20 mg IVP Q12 [facility] Last Admin: 07/02/18 08:54 Dose: 20 mg Glucagon (Glucagen Diagnostic Kit) 0 mg IM STAT PRN; Protocol PRN Reason: Hypoglycemia Protocol Ganciclovir 250 mg/ Sodium (Chloride) 100 mls @ 100 mls/hr IV Q12@0000,1200 [facility]; Protocol Last Admin: 07/02/18 14:45 Dose: 100 mls/hr Fentanyl Citrate 2,500 mcg/ (Dextrose) 250 mls @ 5.44 mls/hr IV .Q24H [facility]; Protocol Last Admin: 07/02/18 14:39 Dose: 4.5 mcg/kg/hr, 24.49 mls/hr Insulin Human Lispro (Humalog) 0 units SC 0000,0600,1200,1800 [facility]; Protocol Last Admin: 07/02/18 12:47 Dose: Not Given Lamivudine (Epivir) 300 mg PO DAILY [facility]; Protocol Last Admin: 07/02/18 08:47 Dose: 300 mg Methylprednisolone (Solu-Medrol) 20 mg IVP DAILY@0900 [facility] Morphine Sulfate (Morphine) 2 mg IVP Q6 PRN PRN Reason: Pain, moderate (4-7) Last Admin: 06/30/18 16:17 Dose: 2 mg Nystatin (Nystop Topical Powder) 1 applic TOP TID [facility] Last Admin: 07/02/18 11:02 Dose: Not Given Raltegravir (Isentress) 400 mg PO BID [facility]; Protocol Last Admin: 07/02/18 08:45 Dose: 400 mg Tenofovir Disoproxil Fumarate (Viread) 300 mg PO DAILY [facility]; Protocol Last Admin: 07/02/18 08:49 Dose: 300 mg Trimethoprim/Sulfamethoxazole (Sulfatrim Pediatric Susp) 20 ml PO Q6 [facility]; Protocol - Labs Labs: 07/02/18 04:30 07/02/18 04:30 PT 13.1 Seconds (9.8-13.1) 06/18/18 05:47 INR 1.2 06/18/18 05:47 APTT 28.9 Seconds (25.6-37.1) 06/18/18 05:47 - Constitutional Appears: Chronically Ill - Head Exam Head Exam: NORMAL INSPECTION - Eye Exam Additional comments: Sluggish reaction to light - ENT Exam Additional comments: Intubated, OGT - Neck Exam Neck Exam: Normal Inspection - Respiratory Exam Respiratory Exam: Decreased Breath Sounds (at bases), Rhonchi (at bases) - Cardiovascular Exam Cardiovascular Exam: REGULAR RHYTHM - GI/Abdominal Exam GI & Abdominal Exam: Soft, Normal Bowel Sounds - Exam Additional comments: Yang Cath - Extremities Exam Additional comments: Edema BUE - Neurological Exam Additional comments: Intubated, sedated, unable to follows commands, restless movements with head and extremities. - Skin Skin Exam: Warm Assessment and Plan (1) Respiratory failure Status: Acute (2) Altered mental status Status: Acute (3) HIV (human immunodeficiency virus infection) Status: Acute (4) Fever Status: Acute (5) Pneumonia Status: Acute (6) Severe sepsis Status: Acute (7) Acute renal failure Status: Acute (8) Diabetes mellitus Status: Acute - Assessment and Plan (Free Text) Plan: Continue Fentanyl, Morphine Solu-Medrol and rest of Tx. For Tracheostomy in AM Critical care time: 34 min.
[2018-07-02] MEDS: Tmp-Smz 200-40mg/5 ml Oral Sus(120 ml) PO SCH ×2 (17:00→21:52)
[2018-07-03] MEDS: Insulin Lispro (humaLOG) 100 Units/ml Inj SC SCH ×4 (00:09→17:37)
[2018-07-03] MEDS: Proshield Plus GEL TOP SCH ×3 (00:11→17:38)
[2018-07-03] MEDS: Fentanyl Citrate 2,500 MCG in Dextrose 5% In Water 200 ML IV SCH ×3 (01:41→20:25)
[2018-07-03] MEDS: Tmp-Smz 200-40mg/5 ml Oral Sus(120 ml) PO SCH ×4 (03:07→21:49)
[2018-07-03 04:40] LABS: ABG ALLEN TEST YES; ARTERIAL BLOOD GAS HCO3 28.4 mmol/L (21-28); ARTERIAL BLOOD GAS HEMOGLOBIN 9.6 g/dL (11.7-17.4); ARTERIAL BLOOD GAS O2 CAPACITY 13.5 mL/dL (16-24); ARTERIAL BLOOD GAS O2 CONTENT 13.5 ML/dL (15-23); ARTERIAL BLOOD GAS O2 SAT 100.1 % (95-98); ARTERIAL BLOOD GAS PCO2 39 mm/Hg (35-45); ARTERIAL BLOOD GAS PH 7.47 (7.35-7.45); ARTERIAL BLOOD GAS PO2 164 mm/Hg (80-100); ARTERIAL BLOOD GAS TCO2 29.6 mmol/L (22-28)
[2018-07-03 05:41] LABS: BASO % 0.3 % (0.0-2.0); EOS % 0.4 % (0.0-4.0); HEMOGLOBIN 8.9 g/dL (12.0-18.0); LYMPH # 0.3 K/uL (1.0-4.3); MEAN CELL VOLUME 85.3 fl (80.0-94.0); MEAN CORPUSCULAR HEMOGLOBIN 28.1 pg (27.0-31.0); MEAN CORPUSCULAR HGB CONC 32.9 g/dL (33.0-37.0); MEAN PLATELET VOLUME 9.4 fl (7.2-11.7); MONO # 0.1 K/uL (0.0-0.8); MONO % 3.8 % (0.0-10.0); NEUT # 2.9 K/uL (1.8-7.0); NEUT % 87.5 % (50.0-75.0); PLATELET COUNT 257 K/uL (130-400); RBC 3.15 Mil/uL (4.40-5.90); RED CELL DISTRIBUTION WIDTH 16.3 % (11.5-14.5); WHITE BLOOD COUNT 3.3 K/uL (4.8-10.8)
[2018-07-03 06:07] LABS: ALB/GLOB RATIO 0.8 (1.0-2.1); ALBUMIN 2.5 g/dL (3.5-5.0); ALT/SGPT 48 U/L (21-72); AST/SGOT 27 U/L (17-59); BLOOD UREA NITROGEN 27 mg/dl (9-20); CALCIUM 8.8 mg/dL (8.4-10.2); GFR NON-AFRICAN AMERICAN 51
--- NOTE | 2018-07-03 08:30 | RAD ---
Date of service: 07/03/2018 HISTORY: vented COMPARISON: Portable chest 07/02/2018, 12:06 p.m.. FINDINGS: LUNGS: Endotracheal and nasogastric tubes are not significantly changed in position as well as right PICC. Limited persistent infiltrate at the mid to inferior left lung zone with trace residual at the right. PLEURA: No significant pleural effusion identified, no pneumothorax apparent. CARDIOVASCULAR: No aortic atherosclerotic calcification present. Normal cardiac size. No pulmonary vascular congestion. OSSEOUS STRUCTURES: No significant abnormalities. VISUALIZED UPPER ABDOMEN: Normal. OTHER FINDINGS: None. IMPRESSION: Trace right perihilar infiltrate remains with no interval change in mid inferior left pulmonary infiltrate though mild density overall.
--- NOTE | 2018-07-03 08:36 | CON ---
DATE: 07/02/2018 REFERRING PHYSICIAN: Hipolito Glover MD REASON FOR CONSULTATION: Dysphagia. HISTORY OF PRESENT ILLNESS: This is a 67-year-old male with HIV, , comes in mental status and dizzy associated with renal failure, complicated ICU stay, required intubation. The patient is going for trach tomorrow. I was asked to evaluate for possible PEG. The patient cannot give a history. . PAST MEDICAL HISTORY: As above. PAST SURGICAL HISTORY: As above. MEDICATIONS: Reviewed. REVIEW OF SYSTEMS: All other systems have been obtained. PHYSICAL EXAMINATION: VITAL SIGNS: Here in the hospital are grossly unremarkable. GENERAL: This is a well-nourished pleasant elderly-appearing male, lying in bed comfortable, in no apparent distress. HEENT: Head is normocephalic and atraumatic. Eyes: Pupils are equally reactive to light bilaterally. No conjunctival pallor or icterus. NECK: Supple. Normal range of motion. No lymphadenopathy appreciated. LUNGS: Coarse breath sounds bilaterally. HEART: S1 and S2. Regular rate and rhythm. ABDOMEN: Soft, nontender. Bowel sounds present. No rebound. No guarding. RECTAL: Deferred. EXTREMITIES: Pulses felt bilaterally. SKIN: Warm, dry, and intact. NEUROLOGIC: A and O x1. LABORATORY DATA: Labs and radiology have been reviewed. WBC 4.7, hemoglobin 9.8, hematocrit 30.3, platelets count 266. ASSESSMENT AND PLAN: This is a 67-year-old male with human immunodeficiency virus, respiratory failure, and dysphagia. feeding tube and tracheostomy. Thank you for the consult. Chris Edgar MD/ PhD cc: Hipolito Glover MD
--- NOTE | 2018-07-03 08:39 | PN ---
DATE: 07/02/2018 CRITICAL CARE PROGRESS NOTE LOCATION: The patient in ICU, bed 423. TIME SPENT: 35 minutes. The patient is seen and evaluated at the bedside. Case discussed in multidisciplinary ICU rounds this morning. Past medical, surgical, family, and social history noted. SUBJECTIVE: A 67-year-old male with hypertension, hyperlipidemia, anxiety disorder, admitted with altered mental status, noted to be HIV positive. Initial CT head showed no acute abnormality. MRI of the brain shows no acute or chronic infarction or mass effect. CT chest showed upper lobe heterogenous ground-glass opacity and lower lobe reticular interstitial infiltrate with minimal patchy consolidation involving the lung bases. Currently remains intubated, mechanically ventilated on AC/PRVC rate 20, tidal volume 450, FiO2 of 40%,observed rate 20, observed tidal volume 330, minute ventilation 5.9 liters, saturating 100%, peak airway pressure 21. Endotracheal tube repositioned as it was found to be at glottic level. Repeat chest x-ray pending. Remains sedated on fentanyl drip. PHYSICAL EXAMINATION: VITAL SIGNS: Temperature 96.6, heart rate 66, blood pressure 106/64, mean arterial pressure 78, oxygen saturation 100%. Intake 2817, output 2445, positive balance 372. HEAD, EYES, EARS, NOSE, AND THROAT: Pupils 2 to 3 mm, reactive. No gaze preference. NG tube in place. CHEST: Bilateral breath sounds. Clear to auscultation anteriorly and laterally. HEART: Rhythm regular. S1, S2 normal intensity. ABDOMEN: Bowel sounds present, soft. EXTREMITIES: Trace edema. Yang in place. CURRENT MEDICATIONS: Include Tylenol 650 every 4 hours p.r.n., dextrose per hypoglycemia protocol, Proshield Plus Skin Protectant one application topically every 8 hours, Lovenox 30 mg subcutaneously daily, Pepcid 20 mg IV every 12 hours, fentanyl 2500 mcg x 50 mL at 1 mcg/kg per hour titrating as per the protocol, ganciclovir 250 mg IV every 12 hours, Epivir 300 mg NG daily, Solu-Medrol 20 mg IV daily, morphine 2 mg IV every 6 hours p.r.n., nystatin one application topically three times daily, raltegravir 400 mg p.o. twice daily, Viread 300 mg p.o. daily, trimethoprim elixir 20 mL p.o. every 6 hours. LABORATORY DATA: WBC 4.7, hemoglobin 9.8, hematocrit 30.3, platelet count 266. PT 13.1, INR 1.2, PTT 28.9. ABG; pH 7.28, pCO2 of 54, pO2 of 120, on AC 16, 450, 40%, PEEP of 5. SMA-7: Sodium 127, potassium 5.1, chloride 91, CO2 of 24, blood urea nitrogen 28, creatinine 1.1, random glucose 124, calcium 8.8. Toxicology negative. Absolute CD4 count less than 20. Microbiology: Sputum positive for yeast, Padmini famata. Chest x-ray, endotracheal tube terminates 10.7 cm above the cassie. IMPRESSION: 1. Neurologic: Resolving septic toxic metabolic encephalopathy. CT head negative. MRI with no acute or subacute infarct. Electroencephalography negative. 2. Pulmonary: Hypoxic respiratory failure with wide alveolar-arterial gradient. Chest x-ray shows improvement of the pulmonary vascular congestion and the interstitial infiltrate; however, unable to wean off the ventilator, on schedule for tracheostomy in the morning. Nothing by mouth midnight. Continue Bactrim elixir and steroid being tapered off. Continue antibiotics. 3. Cardiac: Normotensive. No cardiac arrhythmia. 4. Hematology: Leucocytosis resolved. Hemoglobin and hematocrit stable. Normal platelet count. 5. Infectious Disease: Human immunodeficiency virus positive. Low CD4 count, on highly active antiretroviral therapy medications. Bactrim day 18, to continue for another three days more. 6. Gastrointestinal: Liver enzymes within normal limits. Continue deep venous thrombosis prophylaxis. Increase feeding as tolerated. Nothing by mouth midnight. Yang in place for adequate urine output and to prevent soiling of lower sacral area. Alvaro Ken MD
[2018-07-03 08:46] LABS: PROTHROMBIN TIME 10.8 Seconds (9.8-13.1)
[2018-07-03 08:48] LABS: PARTIAL THROMBOPLASTIN TIME 25.9 Seconds (25.6-37.1)
[2018-07-03] MEDS ORDERED: methylPREDNISolone 20 MG in Sodium Chloride 0.9% 50 ML IV SCH (09:00)
[2018-07-03 09:36] LABS: BANDS 2 % (0-2); EOSINOPHIL 2 % (0-7); LYMPHOCYTE 4 % (20-50); NEUTROPHIL 92 % (42-75); PLATELET ESTIMATE NORMAL (NORMAL); TOTAL CELLS COUNTED 100
[2018-07-03 09:42] LABS: ANISOCYTOSIS SLIGHT
[2018-07-03 09:43] LABS: BURR CELLS SLIGHT; HYPOCHROMIC SLIGHT; OVALOCYTES SLIGHT; SCHISTOCYTES SLIGHT; TEARDROP CELLS SLIGHT
[2018-07-03] MEDS: MethylPREDNISolone 40 mg Vial IVP SCH (09:46)
[2018-07-03] MEDS ORDERED: Lidocaine 2% Inj (20ml) ONE (11:16)
[2018-07-03] MEDS ORDERED: Bupivacaine 0.5% Inj(30mL) ONE (11:16)
--- NOTE | 2018-07-03 11:40 | CP.PCM.PN ---
Subjective - Date & Time of Evaluation Date of Evaluation: 07/03/18 Time of Evaluation: 11:40 - Subjective Subjective: Patient remain intubated. Family member at the bedside. Vital signs noted to be stable. Intake and output noted. Objective - Vital Signs/Intake and Output Vital Signs (last 24 hours): Temp Pulse Resp BP Pulse Ox 99 F 105 H 20 156/83 H 98 07/03/18 09:00 07/03/18 11:00 07/03/18 11:00 07/03/18 11:00 07/03/18 11:00 Intake and Output: 07/03/18 07/03/18 06:59 18:59 Intake Total 690 470 Output Total 1600 Balance -910 470 - Medications Medications: Current Medications Acetaminophen (Tylenol 325mg Tab) 650 mg PO Q4 PRN PRN Reason: Fever >100.4 F Last Admin: 06/25/18 21:40 Dose: 650 mg Acetaminophen (Tylenol 650 Mg Supp) 650 mg UT Q6 PRN PRN Reason: Fever >100.4 F Last Admin: 06/20/18 02:30 Dose: 650 mg Acetaminophen (Tylenol 650mg/20.3ml Solution Ud) 650 mg NG Q4 PRN PRN Reason: fever 100.4 or above Dextrose (Dextrose 50% Inj) 0 ml IV STAT PRN; Protocol PRN Reason: Hypoglycemia Protocol Dextrose (Glutose 15) 0 gm PO ONCE PRN; Protocol PRN Reason: Hypoglycemia Protocol Dimethicone (Proshield Plus Skin Protectant) 1 applic TOP Q8 [facility] Last Admin: 07/03/18 09:45 Dose: 1 applic Enoxaparin Sodium (Lovenox) 30 mg SC DAILY [facility]; Protocol Last Admin: 06/17/18 09:20 Dose: 30 mg Famotidine (Pepcid) 20 mg IVP Q12 [facility] Last Admin: 07/03/18 11:32 Dose: 20 mg Glucagon (Glucagen Diagnostic Kit) 0 mg IM STAT PRN; Protocol PRN Reason: Hypoglycemia Protocol Ganciclovir 250 mg/ Sodium (Chloride) 100 mls @ 100 mls/hr IV Q12@0000,1200 [facility]; Protocol Last Admin: 07/03/18 00:17 Dose: 100 mls/hr Fentanyl Citrate 2,500 mcg/ (Dextrose) 250 mls @ 5.44 mls/hr IV .Q24H [facility]; Protocol Last Admin: 07/03/18 11:25 Dose: 5.5 mcg/kg/hr, 29.94 mls/hr Insulin Human Lispro (Humalog) 0 units SC 0000,0600,1200,1800 [facility]; Protocol Last Admin: 07/03/18 11:30 Dose: Not Given Lamivudine (Epivir) 300 mg PO DAILY [facility]; Protocol Last Admin: 07/03/18 09:44 Dose: Not Given Methylprednisolone (Solu-Medrol) 20 mg IVP DAILY@0900 [facility] Last Admin: 07/03/18 09:46 Dose: 20 mg Nystatin (Nystop Topical Powder) 1 applic TOP TID [facility] Last Admin: 07/03/18 09:45 Dose: 1 applic Raltegravir (Isentress) 400 mg PO BID [facility]; Protocol Last Admin: 07/03/18 09:44 Dose: Not Given Tenofovir Disoproxil Fumarate (Viread) 300 mg PO DAILY [facility]; Protocol Last Admin: 07/03/18 09:46 Dose: Not Given Trimethoprim/Sulfamethoxazole (Sulfatrim Pediatric Susp) 20 ml PO Q6 [facility]; Protocol Last Admin: 07/03/18 09:46 Dose: Not Given - Labs Labs: 07/03/18 04:30 07/03/18 04:30 PT 10.8 Seconds (9.8-13.1) 07/03/18 08:10 INR 1.0 07/03/18 08:10 APTT 25.9 Seconds (25.6-37.1) 07/03/18 08:10 - Constitutional Appears: No Acute Distress - Eye Exam Eye Exam: Conjunctival injection - ENT Exam ENT Exam: Mucous Membranes Moist - Neck Exam Neck Exam: absent: Lymphadenopathy - Respiratory Exam Respiratory Exam: Rhonchi - Cardiovascular Exam Cardiovascular Exam: absent: Gallop, JVD, Rubs - GI/Abdominal Exam GI & Abdominal Exam: Soft, Normal Bowel Sounds - Extremities Exam Extremities Exam: absent: Calf Tenderness - Back Exam Back Exam: absent: CVA tenderness (L), CVA tenderness (R) - Neurological Exam Neurological Exam: Altered - Psychiatric Exam Psychiatric exam: Flat Affect - Skin Skin Exam: absent: Cyanosis Assessment and Plan (1) Acute renal failure Assessment & Plan: Acute renal failure /HUGO recovering Sepsis Encephalopathy Respiratory failure Hyponatremia Recommendation Serum sodium started to improve to 129 since Bactrim has been discontinued and cut down about 1000 cc of D5W which has been given with intravenous Bactrim. Continue to monitor kidney function which has been stable Management of respirator as per primary team and intensive care unit Status: Acute (2) HIV (human immunodeficiency virus infection) Status: Acute
--- NOTE | 2018-07-03 11:41 | CP.PCM.PN ---
Subjective - Date & Time of Evaluation Date of Evaluation: 07/03/18 Time of Evaluation: 08:00 - Subjective Subjective: discussed on rounds need to use gowns gloves and mask while administering cytovene at all times Objective - Vital Signs/Intake and Output Vital Signs (last 24 hours): Temp Pulse Resp BP Pulse Ox 99 F 105 H 20 156/83 H 98 07/03/18 09:00 07/03/18 11:00 07/03/18 11:00 07/03/18 11:00 07/03/18 11:00 Intake and Output: 07/03/18 07/03/18 06:59 18:59 Intake Total 690 470 Output Total 1600 Balance -910 470 - Medications Medications: Current Medications Acetaminophen (Tylenol 325mg Tab) 650 mg PO Q4 PRN PRN Reason: Fever >100.4 F Last Admin: 06/25/18 21:40 Dose: 650 mg Acetaminophen (Tylenol 650 Mg Supp) 650 mg [place] Q6 PRN PRN Reason: Fever >100.4 F Last Admin: 06/20/18 02:30 Dose: 650 mg Acetaminophen (Tylenol 650mg/20.3ml Solution Ud) 650 mg NG Q4 PRN PRN Reason: fever 100.4 or above Dextrose (Dextrose 50% Inj) 0 ml IV STAT PRN; Protocol PRN Reason: Hypoglycemia Protocol Dextrose (Glutose 15) 0 gm PO ONCE PRN; Protocol PRN Reason: Hypoglycemia Protocol Dimethicone (Proshield Plus Skin Protectant) 1 applic TOP Q8 [facility] Last Admin: 07/03/18 09:45 Dose: 1 applic Enoxaparin Sodium (Lovenox) 30 mg SC DAILY [facility]; Protocol Last Admin: 06/17/18 09:20 Dose: 30 mg Famotidine (Pepcid) 20 mg IVP Q12 [facility] Last Admin: 07/03/18 11:32 Dose: 20 mg Glucagon (Glucagen Diagnostic Kit) 0 mg IM STAT PRN; Protocol PRN Reason: Hypoglycemia Protocol Ganciclovir 250 mg/ Sodium (Chloride) 100 mls @ 100 mls/hr IV Q12@0000,1200 [facility]; Protocol Last Admin: 07/03/18 00:17 Dose: 100 mls/hr Fentanyl Citrate 2,500 mcg/ (Dextrose) 250 mls @ 5.44 mls/hr IV .Q24H [facility]; Protocol Last Admin: 07/03/18 11:25 Dose: 5.5 mcg/kg/hr, 29.94 mls/hr Insulin Human Lispro (Humalog) 0 units SC 0000,0600,1200,1800 [facility]; Protocol Last Admin: 07/03/18 11:30 Dose: Not Given Lamivudine (Epivir) 300 mg PO DAILY [facility]; Protocol Last Admin: 07/03/18 09:44 Dose: Not Given Methylprednisolone (Solu-Medrol) 20 mg IVP DAILY@0900 [facility] Last Admin: 07/03/18 09:46 Dose: 20 mg Nystatin (Nystop Topical Powder) 1 applic TOP TID [facility] Last Admin: 07/03/18 09:45 Dose: 1 applic Raltegravir (Isentress) 400 mg PO BID [facility]; Protocol Last Admin: 07/03/18 09:44 Dose: Not Given Tenofovir Disoproxil Fumarate (Viread) 300 mg PO DAILY [facility]; Protocol Last Admin: 07/03/18 09:46 Dose: Not Given Trimethoprim/Sulfamethoxazole (Sulfatrim Pediatric Susp) 20 ml PO Q6 [facility]; Protocol Last Admin: 07/03/18 09:46 Dose: Not Given - Labs Labs: 07/03/18 04:30 07/03/18 04:30 PT 10.8 Seconds (9.8-13.1) 07/03/18 08:10 INR 1.0 07/03/18 08:10 APTT 25.9 Seconds (25.6-37.1) 07/03/18 08:10 - Constitutional Appears: Confused, Cachectic, Chronically Ill - Head Exam Head Exam: NORMOCEPHALIC - Eye Exam Eye Exam: absent: Scleral icterus - ENT Exam ENT Exam: Mucous Membranes Dry - Neck Exam Neck Exam: absent: Lymphadenopathy - Respiratory Exam Respiratory Exam: Decreased Breath Sounds - Cardiovascular Exam Cardiovascular Exam: REGULAR RHYTHM - GI/Abdominal Exam GI & Abdominal Exam: Distended - Rectal Exam Rectal Exam: Deferred - Exam Exam: NORMAL INSPECTION - Extremities Exam Extremities Exam: Pedal Edema - Back Exam Back Exam: absent: CVA tenderness (L), CVA tenderness (R) - Neurological Exam Neurological Exam: Altered Assessment and Plan (1) Acute renal failure Status: Acute (2) Altered mental status Status: Acute (3) Diabetes mellitus Status: Acute (4) HIV (human immunodeficiency virus infection) Status: Acute (5) Pneumonia Status: Acute (6) Encephalopathy Status: Acute (7) CMV (cytomegalovirus) infection Status: Acute - Assessment and Plan (Free Text) Assessment: 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
[2018-07-03 12:54] LABS: MONOCYTE 0 % (0-10)
--- NOTE | 2018-07-03 13:11 | CP.PCM.PN ---
Subjective - Date & Time of Evaluation Date of Evaluation: 07/03/18 Time of Evaluation: 11:10 - Subjective Subjective: F/U respiratory failure Pt restless, intubated , on Fentanyl drip. Objective - Vital Signs/Intake and Output Vital Signs (last 24 hours): Temp Pulse Resp BP Pulse Ox 99.1 F 99 H 20 99/68 L 100 07/03/18 12:00 07/03/18 12:50 07/03/18 12:50 07/03/18 12:50 07/03/18 12:50 Intake and Output: 07/03/18 07/03/18 06:59 18:59 Intake Total 690 630 Output Total 1600 Balance -910 630 - Medications Medications: Current Medications Acetaminophen (Tylenol 325mg Tab) 650 mg PO Q4 PRN PRN Reason: Fever >100.4 F Last Admin: 06/25/18 21:40 Dose: 650 mg Acetaminophen (Tylenol 650 Mg Supp) 650 mg [place] Q6 PRN PRN Reason: Fever >100.4 F Last Admin: 06/20/18 02:30 Dose: 650 mg Acetaminophen (Tylenol 650mg/20.3ml Solution Ud) 650 mg NG Q4 PRN PRN Reason: fever 100.4 or above Dextrose (Dextrose 50% Inj) 0 ml IV STAT PRN; Protocol PRN Reason: Hypoglycemia Protocol Dextrose (Glutose 15) 0 gm PO ONCE PRN; Protocol PRN Reason: Hypoglycemia Protocol Dimethicone (Proshield Plus Skin Protectant) 1 applic TOP Q8 [facility] Last Admin: 07/03/18 09:45 Dose: 1 applic Enoxaparin Sodium (Lovenox) 30 mg SC DAILY [facility]; Protocol Last Admin: 06/17/18 09:20 Dose: 30 mg Famotidine (Pepcid) 20 mg IVP Q12 [facility] Last Admin: 07/03/18 11:32 Dose: 20 mg Glucagon (Glucagen Diagnostic Kit) 0 mg IM STAT PRN; Protocol PRN Reason: Hypoglycemia Protocol Ganciclovir 250 mg/ Sodium (Chloride) 100 mls @ 100 mls/hr IV Q12@0000,1200 [facility]; Protocol Last Admin: 07/03/18 12:22 Dose: 100 mls/hr Fentanyl Citrate 2,500 mcg/ (Dextrose) 250 mls @ 5.44 mls/hr IV .Q24H [facility]; Protocol Last Admin: 07/03/18 11:25 Dose: 5.5 mcg/kg/hr, 29.94 mls/hr Insulin Human Lispro (Humalog) 0 units SC 0000,0600,1200,1800 [facility]; Protocol Last Admin: 07/03/18 11:30 Dose: Not Given Lamivudine (Epivir) 300 mg PO DAILY [facility]; Protocol Last Admin: 07/03/18 09:44 Dose: Not Given Methylprednisolone (Solu-Medrol) 20 mg IVP DAILY@0900 [facility] Last Admin: 07/03/18 09:46 Dose: 20 mg Nystatin (Nystop Topical Powder) 1 applic TOP TID [facility] Last Admin: 07/03/18 09:45 Dose: 1 applic Raltegravir (Isentress) 400 mg PO BID [facility]; Protocol Last Admin: 07/03/18 09:44 Dose: Not Given Tenofovir Disoproxil Fumarate (Viread) 300 mg PO DAILY [facility]; Protocol Last Admin: 07/03/18 09:46 Dose: Not Given Trimethoprim/Sulfamethoxazole (Sulfatrim Pediatric Susp) 20 ml PO Q6 [facility]; Protocol Last Admin: 07/03/18 09:46 Dose: Not Given - Labs Labs: 07/03/18 04:30 07/03/18 04:30 PT 10.8 Seconds (9.8-13.1) 07/03/18 08:10 INR 1.0 07/03/18 08:10 APTT 25.9 Seconds (25.6-37.1) 07/03/18 08:10 - Constitutional Appears: Chronically Ill - Head Exam Head Exam: NORMAL INSPECTION - Eye Exam Additional comments: Pupils sluggish reaction to light - ENT Exam Additional comments: Intubated, OGT - Neck Exam Neck Exam: Normal Inspection - Respiratory Exam Respiratory Exam: Decreased Breath Sounds (at bases) - Cardiovascular Exam Cardiovascular Exam: REGULAR RHYTHM - GI/Abdominal Exam GI & Abdominal Exam: Soft, Normal Bowel Sounds - Exam Additional comments: Yang Cath - Extremities Exam Additional comments: Edema BUE - Neurological Exam Additional comments: Intubated, sedated, unable to follow commands. limited movements with Head an d U/E - Skin Skin Exam: Warm Assessment and Plan (1) Respiratory failure Status: Acute (2) Altered mental status Status: Acute (3) HIV (human immunodeficiency virus infection) Status: Acute (4) Fever Status: Acute (5) Pneumonia Status: Acute (6) Severe sepsis Status: Acute (7) Acute renal failure Status: Acute (8) Diabetes mellitus Status: Acute - Assessment and Plan (Free Text) Plan: Continue fentanyl, Morphine, Solu-Medrol , Abt, HRT, and rest of Tx, for Tracheostomy today. Critical care time: 32 min.
[2018-07-03] MEDS ORDERED: Rocuronium 10 mg/ml (5 ml) ONE (13:41)
[2018-07-03] MEDS ORDERED: Sodium Chloride 0.9% 500 ML IV ONE (14:15)
[2018-07-03] MEDS ORDERED: Lidocaine 2% Inj (20ml) IJ ONE ×2 (14:45)
--- NOTE | 2018-07-03 15:21 | PCM.SURG1 ---
Surgeon's Initial Post Op Note - Surgeon's Notes Surgeon: Dr. Ortiz Relief Driller: Dr. Mann, Dr. Elmore, Dr. Sosa Type of Anesthesia: General Endo, Local Pre-Operative Diagnosis: acute respiratory failure prolonged intubation Operative Findings: successful tracheal placement of tube w/ confirmatory end tidal CO2 Post-Operative Diagnosis: same Operation Performed: open tracheostomy Specimen/Specimens Removed: none Estimated Blood Loss: EBL {In ML}: 5 Blood Products Given: N/A Drains Used: No Drains Post-Op Condition: Good Date of Surgery/Procedure: 07/03/18 Time of Surgery/Procedure: 15:20
[2018-07-03] MEDS ORDERED: Neostigmine 1:1000 (1 mg/ml) Inj ONE (15:24)
--- NOTE | 2018-07-03 16:33 | RAD ---
Date of service: 07/03/2018 PROCEDURE: CHEST RADIOGRAPH, 1 VIEW HISTORY: tracheostomy placement COMPARISON: July 03, 2018 Time of the most recent examination: 04:22. FINDINGS: LUNGS: Stable infiltrates. PLEURA: No pneumothorax or pleural fluid seen. CARDIOVASCULAR: No aortic atherosclerotic calcification present. Normal. PICC line in satisfactory position OSSEOUS STRUCTURES: No significant abnormalities. VISUALIZED UPPER ABDOMEN: Normal. OTHER FINDINGS: Stable position nasogastric tube. Satisfactory position of recently placed tracheostomy device. IMPRESSION: Satisfactory position recently placed tracheostomy device. Otherwise, no interval change.
--- NOTE | 2018-07-03 23:17 | PN ---
DATE: 07/03/2018 CRITICAL CARE PROGRESS NOTE LOCATION: The patient in ICU bed 423. Time spent 35 minutes. The patient is seen and evaluated at the bed side. Case discussed in multidisciplinary ICU rounds this morning. Past medical, surgical, family and social history reviewed. SUBJECTIVE: A 67-year-old male with hypertension, hyperlipidemia, anxiety disorder admitted with altered mental status, noted to be HIV positive. Initial CT head showed no acute abnormality. MRI of brain shows no acute or chronic infarction or mass effect. The CT chest showed upper lobe heterogeneous ground-glass opacity and lower lobe reticular interstitial infiltrates with a minimal patchy consolidation involving the lung bases. Currently remains intubated, mechanically ventilated, on AC/PRVC, rate 20, tidal volume of 450, FiO2 of 40%, saturating 98%, observed rate 20, observed tidal volume for 450, minute ventilation 8.7 L, end-tidal CO2 of 29, sedated on fentanyl drip to facilitate mechanical ventilation. PHYSICAL EXAMINATION: VITAL SIGNS: Temperature 99, heart rate 83, blood pressure 110/68, mean arterial pressure 82, oxygen saturation 99%. Intake 1870, output 3220, negative balance 1350. Weight 106 pounds. HEAD, EYES, EARS, NOSE AND THROAT: Pupils reactive. Conjunctivae pale. Sclerae white. NECK: Supple. No gaze preference. NG tube in place. CHEST: Bilateral breath sounds. Clear to auscultation anteriorly and laterally. HEART: Rhythm regular. S1 and S2, normal intensity. ABDOMEN: Bowel sounds present. Soft. EXTREMITIES: Trace edema. Yang in place. Left sacral hardening and no skin breakdown. CURRENT MEDICATIONS: Tylenol 650 mg every 4 hours p.r.n., Proshield skin protectant one application topically every 8 hours, Lovenox 30 mg subcu daily on hold for the procedure, Pepcid 20 mg every 12 hours, fentanyl 100 mcg in 50 mL at 1 mcg/kg per hour, ganciclovir 250 mg IV every 12 hours, Epivir 300 mg NG daily, Solu-Medrol 20 mg IV daily, morphine 2 mg IV every 6 hours p.r.n., nystatin one application topically three times daily, raltegravir 400 mg p.o. twice daily, Viread 300 mg p.o. daily, trimethoprim elixir 20 mL p.o. every 6 hours. LABORATORY DATA: WBC 3.3, hemoglobin 8.9, hematocrit 26.9, MCV 85.3, platelet count 257, neutrophils 87.5, lymphocytes 8, monocytes 3.8. PT 10.8, INR 1, PTT 25.9. ABG: The pH of 7.47, pCO2 of 39, pO2 of 167, on AC 20/450/40%, PEEP of 5. SMA-7: Sodium 129, potassium 4.8, chloride 92, CO2 of 30, blood urea nitrogen 27, creatinine 1.4, random glucose 91, calcium 8.8. Total bilirubin 0.3, AST 27, ALT 48, alkaline phosphatase 150, total protein 5.5, albumin 2.5, A/G ratio 0.8. Urinalysis negative. Absolute CD4 count less than 20. Chest x-ray from this morning: Endotracheal and nasogastric tubes are not significantly changed in position as well as right PICC line, no pneumothorax, pleural effusion, normal cardiac size, no pulmonary vascular congestion. Microbiology: Sputum culture positive for yeast, identified Padmini famata. IMPRESSION: 1. Neuro: Still with less response to verbal stimuli, responds well to painful stimuli. Suspect human immunodeficiency virus, related to encephalopathy/dementia. MRI showed no acute or subacute infarct. Electroencephalogram negative. 2. Pulmonary: Hypoxic respiratory failure with wide alveolar-arterial gradient. Suspected pneumocystic pneumonia. Infiltrates seen bilaterally improved. Day 19 of Bactrim, continue elixir. Steroid being tapered off. Failed spontaneous breathing trials, multiple. Scheduled for elective tracheostomy today. 3. Cardiac: Normotensive. No cardiac arrhythmias. 4. Hematology: Leukocytosis, resolved. Hemoglobin and hematocrit are stable. Normal coagulation profile. 5. Infectious Disease: Human immunodeficiency virus positive, low CD4 count, on antiretrovirals therapy and on Bactrim. 6. Gastroenterology: Liver enzymes within normal limits. 7. Renal: Renal function improves and remains stable with BUN 27, creatinine 1.4. Hyponatremia, trending up currently at 129. Off hypertonic solution. Alvaro Ken MD
[2018-07-04] MEDS: Insulin Lispro (humaLOG) 100 Units/ml Inj SC SCH ×4 (00:15→17:13)
[2018-07-04] MEDS: Proshield Plus GEL TOP SCH ×3 (00:16→17:15)
--- NOTE | 2018-07-04 00:27 | OP ---
PROCEDURE DATE: 06/27/2018 PREOPERATIVE DIAGNOSIS: Respiratory failure. POSTOPERATIVE DIAGNOSIS: Respiratory failure. PROCEDURE: Open tracheostomy creation. SURGEON: Moises Ortiz MD SECOND NEWCOMER HOSTESS: Saúl Mann MD, resident Dr. Elmore ANESTHESIA: General, local. FINDINGS: Tracheostomy was placed between second and third tracheal rings. COMPLICATIONS: None. ESTIMATED BLOOD LOSS: 5 mL. SPECIMEN: None. CONDITION: Stable. INDICATIONS: This is a 67-year-old male who has multiple medical comorbidities. He was admitted to the ICU and subsequently intubated. The patient failed multiple weaning trials and was unable to be weaned from ventilator. General Surgery was consulted for a tracheostomy creation. Patient's next of the kin were contacted, explained the risks and benefits of procedure and surgical consent was obtained. DESCRIPTION OF PROCEDURE: On date of procedure, the patient was brought to the operating room, he was placed supine on the ICU bed. The patient's neck was prepped and draped in usual sterile fashion. After an adequate timeout, we proceeded to begin the procedure. We applied a local anesthetic to anterior neck using lidocaine and epinephrine. We then proceeded to make a 3 cm vertical incision. Using a Bovie cautery, the skin was transected down through the subcutaneous tissue obtaining adequate hemostasis at all time using a combination of cautery along with blunt dissection. The strap muscles were retracted laterally. We proceeded the dissection until the trachea was identified. The trachea was cleaned off any adipose tissue and adequate hemostasis was obtained. We then proceeded to use an 11 blade to create a window on the trachea between the second and third tracheal rings. The Anesthesia was instructed to retract the endotracheal tube. We then proceeded to dilate the trachea. A #8 Shiley tracheal tube was placed into the trachea. The tracheostomy tube was then connected to the ventilator and end tidal CO2 was confirmed. We confirmed hemostasis along the skin edges. We then proceeded to secure the tracheostomy tube to the skin using 2-0 silk stitch. The patient tolerated the procedure well. He was brought back to recovery room in stable condition. There was an adequate count to all instruments, needles and sponges at the end of the procedure. Moises Ortiz MD [facility]
[2018-07-04] MEDS: Tmp-Smz 200-40mg/5 ml Oral Sus(120 ml) PO SCH ×4 (03:06→22:46)
[2018-07-04] MEDS: Fentanyl Citrate 2,500 MCG in Dextrose 5% In Water 200 ML IV SCH ×3 (04:58→23:13)
[2018-07-04 05:02] LABS: ABG ALLEN TEST YES; ARTERIAL BLOOD GAS HCO3 26.8 mmol/L (21-28); ARTERIAL BLOOD GAS HEMOGLOBIN 9.8 g/dL (11.7-17.4); ARTERIAL BLOOD GAS O2 CAPACITY 13.9 mL/dL (16-24); ARTERIAL BLOOD GAS O2 CONTENT 13.9 ML/dL (15-23); ARTERIAL BLOOD GAS O2 SAT 100.3 % (95-98); ARTERIAL BLOOD GAS PCO2 42 mm/Hg (35-45); ARTERIAL BLOOD GAS PH 7.42 (7.35-7.45); ARTERIAL BLOOD GAS PO2 177 mm/Hg (80-100); ARTERIAL BLOOD GAS TCO2 28.5 mmol/L (22-28)
[2018-07-04 05:29] LABS: HEMOGLOBIN 9.7 g/dL (12.0-18.0); MEAN CELL VOLUME 86.8 fl (80.0-94.0); MEAN CORPUSCULAR HEMOGLOBIN 28.6 pg (27.0-31.0); RBC 3.38 Mil/uL (4.40-5.90); WHITE BLOOD COUNT 4.7 K/uL (4.8-10.8)
[2018-07-04 06:47] LABS: ALB/GLOB RATIO 0.9 (1.0-2.1); ALBUMIN 3.1 g/dL (3.5-5.0); CALCIUM 9.1 mg/dL (8.4-10.2)
[2018-07-04] MEDS: MethylPREDNISolone 40 mg Vial IVP SCH (09:37)
--- NOTE | 2018-07-04 10:50 | CP.PCM.PN ---
Subjective - Date & Time of Evaluation Date of Evaluation: 07/04/18 Time of Evaluation: 10:50 - Subjective Subjective: Remain obtunded and intubated Vital signs noted to be stable Objective - Vital Signs/Intake and Output Vital Signs (last 24 hours): Temp Pulse Resp BP Pulse Ox 99.1 F 79 20 103/59 L 100 07/04/18 09:00 07/04/18 10:00 07/04/18 10:00 07/04/18 10:00 07/04/18 10:00 Intake and Output: 07/04/18 07/04/18 06:59 18:59 Intake Total 1250 280 Output Total 1100 Balance 150 280 - Medications Medications: Current Medications Acetaminophen (Tylenol 325mg Tab) 650 mg PO Q4 PRN PRN Reason: Fever >100.4 F Last Admin: 06/25/18 21:40 Dose: 650 mg Acetaminophen (Tylenol 650 Mg Supp) 650 mg [place] Q6 PRN PRN Reason: Fever >100.4 F Last Admin: 06/20/18 02:30 Dose: 650 mg Acetaminophen (Tylenol 650mg/20.3ml Solution Ud) 650 mg NG Q4 PRN PRN Reason: fever 100.4 or above Dextrose (Dextrose 50% Inj) 0 ml IV STAT PRN; Protocol PRN Reason: Hypoglycemia Protocol Dextrose (Glutose 15) 0 gm PO ONCE PRN; Protocol PRN Reason: Hypoglycemia Protocol Dimethicone (Proshield Plus Skin Protectant) 1 applic TOP Q8 [facility] Last Admin: 07/04/18 09:36 Dose: 1 applic Enoxaparin Sodium (Lovenox) 30 mg SC DAILY [facility]; Protocol Last Admin: 06/17/18 09:20 Dose: 30 mg Famotidine (Pepcid) 20 mg IVP Q12 [facility] Last Admin: 07/04/18 09:35 Dose: 20 mg Fludrocortisone Acetate (Florinef) 0.1 mg PO DAILY [facility] Last Admin: 07/04/18 09:23 Dose: 0.1 mg Glucagon (Glucagen Diagnostic Kit) 0 mg IM STAT PRN; Protocol PRN Reason: Hypoglycemia Protocol Ganciclovir 250 mg/ Sodium (Chloride) 100 mls @ 100 mls/hr IV Q12@0000,1200 [facility]; Protocol Last Admin: 07/04/18 00:30 Dose: 100 mls/hr Fentanyl Citrate 2,500 mcg/ (Dextrose) 250 mls @ 5.44 mls/hr IV .Q24H [facility]; Protocol Last Admin: 07/04/18 04:58 Dose: 5.5 mcg/kg/hr, 29.94 mls/hr Insulin Human Lispro (Humalog) 0 units SC 0000,0600,1200,1800 [facility]; Protocol Last Admin: 07/04/18 05:19 Dose: Not Given Lamivudine (Epivir) 300 mg PO DAILY [facility]; Protocol Last Admin: 07/04/18 09:21 Dose: 300 mg Methylprednisolone (Solu-Medrol) 20 mg IVP DAILY@0900 [facility] Last Admin: 07/04/18 09:37 Dose: 20 mg Morphine Sulfate (Morphine) 2 mg IVP Q6 PRN PRN Reason: Pain, moderate (4-7) Last Admin: 07/04/18 05:03 Dose: 2 mg Nystatin (Nystop Topical Powder) 1 applic TOP TID [facility] Last Admin: 07/03/18 17:38 Dose: Not Given Raltegravir (Isentress) 400 mg PO BID [facility]; Protocol Last Admin: 07/04/18 09:30 Dose: 400 mg Tenofovir Disoproxil Fumarate (Viread) 300 mg PO DAILY [facility]; Protocol Last Admin: 07/04/18 09:38 Dose: 300 mg Trimethoprim/Sulfamethoxazole (Sulfatrim Pediatric Susp) 20 ml PO Q6 [facility]; Protocol Last Admin: 07/04/18 09:37 Dose: 20 ml - Labs Labs: 07/04/18 04:50 07/04/18 04:50 PT 10.8 Seconds (9.8-13.1) 07/03/18 08:10 INR 1.0 07/03/18 08:10 APTT 25.9 Seconds (25.6-37.1) 07/03/18 08:10 - Constitutional Appears: No Acute Distress - Eye Exam Eye Exam: Conjunctival injection - ENT Exam ENT Exam: Mucous Membranes Moist - Respiratory Exam Respiratory Exam: Rhonchi. absent: Chest Wall Tenderness - Cardiovascular Exam Cardiovascular Exam: absent: Gallop, JVD, Rubs - GI/Abdominal Exam GI & Abdominal Exam: Soft, Normal Bowel Sounds - Extremities Exam Extremities Exam: absent: Calf Tenderness - Back Exam Back Exam: absent: CVA tenderness (L), CVA tenderness (R) - Neurological Exam Neurological Exam: Altered - Psychiatric Exam Psychiatric exam: Flat Affect - Skin Skin Exam: absent: Cyanosis Assessment and Plan (1) Acute renal failure Assessment & Plan: Acute renal failure Sepsis Encephalopathy Respiratory failure Hyponatremia Recommendation Serum sodium improving up to 132 Serum creatinine continued to rise a slowly patient developing acute kidney injury again. Patient on multiple antibiotics need to be adjusted with GFR Status: Acute (2) HIV (human immunodeficiency virus infection) Status: Acute
--- NOTE | 2018-07-04 11:02 | RAD ---
Date of service: 07/04/2018 HISTORY: vented COMPARISON: 07/03/2018 FINDINGS: LUNGS: Left parahilar opacity unchanged. Possible pneumonia. No other abnormal pulmonary opacity appreciated. PLEURA: No significant pleural effusion identified, no pneumothorax apparent. CARDIOVASCULAR: No aortic atherosclerotic calcification present. Normal heart size. Tracheostomy tube unchanged. Right PICC catheter unchanged. No pulmonary vascular congestion. OSSEOUS STRUCTURES: No significant abnormalities. VISUALIZED UPPER ABDOMEN: Normal. OTHER FINDINGS: None. IMPRESSION: Left parahilar opacity. Possible pneumonia. Follow-up advised.
--- NOTE | 2018-07-04 12:01 | CP.PCM.PN ---
Subjective - Date & Time of Evaluation Date of Evaluation: 07/03/18 Time of Evaluation: 11:10 - Subjective Subjective: no overnight events Objective - Vital Signs/Intake and Output Vital Signs (last 24 hours): Temp Pulse Resp BP Pulse Ox 99.1 F 71 20 103/63 100 07/04/18 09:00 07/04/18 11:00 07/04/18 11:00 07/04/18 11:00 07/04/18 11:00 Intake and Output: 07/04/18 07/04/18 06:59 18:59 Intake Total 1250 280 Output Total 1100 Balance 150 280 - Medications Medications: Current Medications Acetaminophen (Tylenol 325mg Tab) 650 mg PO Q4 PRN PRN Reason: Fever >100.4 F Last Admin: 06/25/18 21:40 Dose: 650 mg Acetaminophen (Tylenol 650 Mg Supp) 650 mg [place] Q6 PRN PRN Reason: Fever >100.4 F Last Admin: 06/20/18 02:30 Dose: 650 mg Acetaminophen (Tylenol 650mg/20.3ml Solution Ud) 650 mg NG Q4 PRN PRN Reason: fever 100.4 or above Dextrose (Dextrose 50% Inj) 0 ml IV STAT PRN; Protocol PRN Reason: Hypoglycemia Protocol Dextrose (Glutose 15) 0 gm PO ONCE PRN; Protocol PRN Reason: Hypoglycemia Protocol Dimethicone (Proshield Plus Skin Protectant) 1 applic TOP Q8 [facility] Last Admin: 07/04/18 09:36 Dose: 1 applic Enoxaparin Sodium (Lovenox) 30 mg SC DAILY [facility]; Protocol Last Admin: 06/17/18 09:20 Dose: 30 mg Fludrocortisone Acetate (Florinef) 0.1 mg PO DAILY [facility] Last Admin: 07/04/18 09:23 Dose: 0.1 mg Glucagon (Glucagen Diagnostic Kit) 0 mg IM STAT PRN; Protocol PRN Reason: Hypoglycemia Protocol Ganciclovir 250 mg/ Sodium (Chloride) 100 mls @ 100 mls/hr IV Q12@0000,1200 [facility]; Protocol Last Admin: 07/04/18 00:30 Dose: 100 mls/hr Fentanyl Citrate 2,500 mcg/ (Dextrose) 250 mls @ 5.44 mls/hr IV .Q24H [facility]; Protocol Last Admin: 07/04/18 04:58 Dose: 5.5 mcg/kg/hr, 29.94 mls/hr Insulin Human Lispro (Humalog) 0 units SC 0000,0600,1200,1800 [facility]; Protocol Last Admin: 07/04/18 05:19 Dose: Not Given Lamivudine (Epivir) 300 mg PO DAILY [facility]; Protocol Last Admin: 07/04/18 09:21 Dose: 300 mg Methylprednisolone (Solu-Medrol) 20 mg IVP DAILY@0900 [facility] Last Admin: 07/04/18 09:37 Dose: 20 mg Morphine Sulfate (Morphine) 2 mg IVP Q6 PRN PRN Reason: Pain, moderate (4-7) Last Admin: 07/04/18 11:54 Dose: 2 mg Nystatin (Nystop Topical Powder) 1 applic TOP TID [facility] Last Admin: 07/03/18 17:38 Dose: Not Given Raltegravir (Isentress) 400 mg PO BID [facility]; Protocol Last Admin: 07/04/18 09:30 Dose: 400 mg Tenofovir Disoproxil Fumarate (Viread) 300 mg PO DAILY [facility]; Protocol Last Admin: 07/04/18 09:38 Dose: 300 mg Trimethoprim/Sulfamethoxazole (Sulfatrim Pediatric Susp) 20 ml PO Q6 [facility]; Protocol Last Admin: 07/04/18 09:37 Dose: 20 ml - Labs Labs: 07/04/18 04:50 07/04/18 04:50 PT 10.8 Seconds (9.8-13.1) 07/03/18 08:10 INR 1.0 07/03/18 08:10 APTT 25.9 Seconds (25.6-37.1) 07/03/18 08:10 - Head Exam Head Exam: NORMOCEPHALIC - Neck Exam Neck Exam: Normal Inspection - Respiratory Exam Respiratory Exam: Rhonchi - Cardiovascular Exam Cardiovascular Exam: REGULAR RHYTHM - GI/Abdominal Exam GI & Abdominal Exam: Soft, Normal Bowel Sounds Assessment and Plan - Assessment and Plan (Free Text) Assessment: 67 yo male with dysphagia for trach today
--- NOTE | 2018-07-04 12:27 | CP.PCM.PN ---
Subjective - Date & Time of Evaluation Date of Evaluation: 07/04/18 Time of Evaluation: 12:26 - Subjective Subjective: s/p trach Objective - Vital Signs/Intake and Output Vital Signs (last 24 hours): Temp Pulse Resp BP Pulse Ox 99.3 F 85 20 153/80 H 100 07/04/18 12:00 07/04/18 12:00 07/04/18 12:00 07/04/18 12:00 07/04/18 12:00 Intake and Output: 07/04/18 07/04/18 06:59 18:59 Intake Total 1250 520 Output Total 1100 Balance 150 520 - Medications Medications: Current Medications Acetaminophen (Tylenol 325mg Tab) 650 mg PO Q4 PRN PRN Reason: Fever >100.4 F Last Admin: 06/25/18 21:40 Dose: 650 mg Acetaminophen (Tylenol 650 Mg Supp) 650 mg [place] Q6 PRN PRN Reason: Fever >100.4 F Last Admin: 06/20/18 02:30 Dose: 650 mg Acetaminophen (Tylenol 650mg/20.3ml Solution Ud) 650 mg NG Q4 PRN PRN Reason: fever 100.4 or above Dextrose (Dextrose 50% Inj) 0 ml IV STAT PRN; Protocol PRN Reason: Hypoglycemia Protocol Dextrose (Glutose 15) 0 gm PO ONCE PRN; Protocol PRN Reason: Hypoglycemia Protocol Dimethicone (Proshield Plus Skin Protectant) 1 applic TOP Q8 [facility] Last Admin: 07/04/18 09:36 Dose: 1 applic Enoxaparin Sodium (Lovenox) 30 mg SC DAILY [facility]; Protocol Last Admin: 06/17/18 09:20 Dose: 30 mg Fludrocortisone Acetate (Florinef) 0.1 mg PO DAILY [facility] Last Admin: 07/04/18 09:23 Dose: 0.1 mg Glucagon (Glucagen Diagnostic Kit) 0 mg IM STAT PRN; Protocol PRN Reason: Hypoglycemia Protocol Fentanyl Citrate 2,500 mcg/ (Dextrose) 250 mls @ 5.44 mls/hr IV .Q24H [facility]; Protocol Last Admin: 07/04/18 04:58 Dose: 5.5 mcg/kg/hr, 29.94 mls/hr Insulin Human Lispro (Humalog) 0 units SC 0000,0600,1200,1800 [facility]; Protocol Last Admin: 07/04/18 05:19 Dose: Not Given Lamivudine (Epivir) 300 mg PO DAILY [facility]; Protocol Last Admin: 07/04/18 09:21 Dose: 300 mg Methylprednisolone (Solu-Medrol) 20 mg IVP DAILY@0900 [facility] Last Admin: 07/04/18 09:37 Dose: 20 mg Morphine Sulfate (Morphine) 2 mg IVP Q6 PRN PRN Reason: Pain, moderate (4-7) Last Admin: 07/04/18 11:54 Dose: 2 mg Nystatin (Nystop Topical Powder) 1 applic TOP TID [facility] Last Admin: 07/03/18 17:38 Dose: Not Given Raltegravir (Isentress) 400 mg PO BID [facility]; Protocol Last Admin: 07/04/18 09:30 Dose: 400 mg Tenofovir Disoproxil Fumarate (Viread) 300 mg PO DAILY [facility]; Protocol Last Admin: 07/04/18 09:38 Dose: 300 mg Trimethoprim/Sulfamethoxazole (Sulfatrim Pediatric Susp) 20 ml PO Q6 [facility]; Prot ocol Last Admin: 07/04/18 09:37 Dose: 20 ml Valganciclovir (Valcyte) 900 mg PO BID [facility] - Labs Labs: 07/04/18 04:50 07/04/18 04:50 PT 10.8 Seconds (9.8-13.1) 07/03/18 08:10 INR 1.0 07/03/18 08:10 APTT 25.9 Seconds (25.6-37.1) 07/03/18 08:10 - Head Exam Head Exam: NORMOCEPHALIC - Respiratory Exam Respiratory Exam: Rhonchi - Cardiovascular Exam Cardiovascular Exam: REGULAR RHYTHM - GI/Abdominal Exam GI & Abdominal Exam: Soft, Normal Bowel Sounds Assessment and Plan - Assessment and Plan (Free Text) Assessment: 67 yo male with dysphagia will discuss with family re: PEG
--- NOTE | 2018-07-04 13:20 | CP.PCM.PN ---
Subjective - Date & Time of Evaluation Date of Evaluation: 07/04/18 Time of Evaluation: 13:17 - Subjective Subjective: Surgery Progress note Patient seen and examined at bedside. s/p Trach POD#1. currently on PRVC. Dressing C/D/I. Good end tidal CO2 Objective - Vital Signs/Intake and Output Vital Signs (last 24 hours): Temp Pulse Resp BP Pulse Ox 99.3 F 85 20 153/80 H 100 07/04/18 12:00 07/04/18 12:00 07/04/18 12:00 07/04/18 12:00 07/04/18 12:00 Intake and Output: 07/04/18 07/04/18 06:59 18:59 Intake Total 1250 520 Output Total 1100 Balance 150 520 - Medications Medications: Current Medications Acetaminophen (Tylenol 325mg Tab) 650 mg PO Q4 PRN PRN Reason: Fever >100.4 F Last Admin: 06/25/18 21:40 Dose: 650 mg Acetaminophen (Tylenol 650 Mg Supp) 650 mg [place] Q6 PRN PRN Reason: Fever >100.4 F Last Admin: 06/20/18 02:30 Dose: 650 mg Acetaminophen (Tylenol 650mg/20.3ml Solution Ud) 650 mg NG Q4 PRN PRN Reason: fever 100.4 or above Dextrose (Dextrose 50% Inj) 0 ml IV STAT PRN; Protocol PRN Reason: Hypoglycemia Protocol Dextrose (Glutose 15) 0 gm PO ONCE PRN; Protocol PRN Reason: Hypoglycemia Protocol Dimethicone (Proshield Plus Skin Protectant) 1 applic TOP Q8 [facility] Last Admin: 07/04/18 09:36 Dose: 1 applic Enoxaparin Sodium (Lovenox) 30 mg SC DAILY [facility]; Protocol Last Admin: 06/17/18 09:20 Dose: 30 mg Fludrocortisone Acetate (Florinef) 0.1 mg PO DAILY [facility] Last Admin: 07/04/18 09:23 Dose: 0.1 mg Glucagon (Glucagen Diagnostic Kit) 0 mg IM STAT PRN; Protocol PRN Reason: Hypoglycemia Protocol Fentanyl Citrate 2,500 mcg/ (Dextrose) 250 mls @ 5.44 mls/hr IV .Q24H [facility]; Protocol Last Admin: 07/04/18 04:58 Dose: 5.5 mcg/kg/hr, 29.94 mls/hr Insulin Human Lispro (Humalog) 0 units SC 0000,0600,1200,1800 [facility]; Protocol Last Admin: 07/04/18 05:19 Dose: Not Given Lamivudine (Epivir) 300 mg PO DAILY [facility]; Protocol Last Admin: 07/04/18 09:21 Dose: 300 mg Methylprednisolone (Solu-Medrol) 20 mg IVP DAILY@0900 [facility] Last Admin: 07/04/18 09:37 Dose: 20 mg Morphine Sulfate (Morphine) 2 mg IVP Q6 PRN PRN Reason: Pain, moderate (4-7) Last Admin: 07/04/18 11:54 Dose: 2 mg Nystatin (Nystop Topical Powder) 1 applic TOP TID [facility] Last Admin: 07/03/18 17:38 Dose: Not Given Raltegravir (Isentress) 400 mg PO BID [facility]; Protocol Last Admin: 07/04/18 09:30 Dose: 400 mg Tenofovir Disoproxil Fumarate (Viread) 300 mg PO DAILY [facility]; Protocol Last Admin: 07/04/18 09:38 Dose: 300 mg Trimethoprim/Sulfamethoxazole (Sulfatrim Pediatric Susp) 20 ml PO Q6 [facility]; Protocol Last Admin: 07/04/18 09:37 Dose: 20 ml Valganciclovir (Valcyte) 900 mg PO BID [facility] - Labs Labs: 07/04/18 04:50 07/04/18 04:50 PT 10.8 Seconds (9.8-13.1) 07/03/18 08:10 INR 1.0 07/03/18 08:10 APTT 25.9 Seconds (25.6-37.1) 07/03/18 08:10 - Constitutional Appears: No Acute Distress, Chronically Ill - Respiratory Exam Additional comments: Trach PRVC - Cardiovascular Exam Cardiovascular Exam: REGULAR RHYTHM. absent: Bradycardia, Tachycardia - GI/Abdominal Exam GI & Abdominal Exam: Soft. absent: Rigid - Extremities Exam Additional comments: pedal edema - Neurological Exam Neurological Exam: Awake Additional comments: GCS 9T - Skin Skin Exam: Intact, Warm Assessment and Plan - Assessment and Plan (Free Text) Assessment: 67M s/p Tracheostomy POD#1 Plan: - Change Gauze dressing around trach - vent weaning per ICU - no further acute surgical intervention indicated at this time - d/w Surgical attending PGY2
--- NOTE | 2018-07-04 14:09 | CP.PCM.PN ---
Subjective - Date & Time of Evaluation Date of Evaluation: 07/04/18 Time of Evaluation: 13:10 - Subjective Subjective: F/U Respiratory failure. Tracheostomy Pt with eyes ope, at times restless Objective - Vital Signs/Intake and Output Vital Signs (last 24 hours): Temp Pulse Resp BP Pulse Ox 99 F 90 20 125/72 98 07/04/18 13:00 07/04/18 14:00 07/04/18 14:00 07/04/18 14:00 07/04/18 14:00 Intake and Output: 07/04/18 07/04/18 06:59 18:59 Intake Total 1250 910 Output Total 1100 Balance 150 910 - Medications Medications: Current Medications Acetaminophen (Tylenol 325mg Tab) 650 mg PO Q4 PRN PRN Reason: Fever >100.4 F Last Admin: 06/25/18 21:40 Dose: 650 mg Acetaminophen (Tylenol 650 Mg Supp) 650 mg [place] Q6 PRN PRN Reason: Fever >100.4 F Last Admin: 06/20/18 02:30 Dose: 650 mg Acetaminophen (Tylenol 650mg/20.3ml Solution Ud) 650 mg NG Q4 PRN PRN Reason: fever 100.4 or above Dextrose (Dextrose 50% Inj) 0 ml IV STAT PRN; Protocol PRN Reason: Hypoglycemia Protocol Dextrose (Glutose 15) 0 gm PO ONCE PRN; Protocol PRN Reason: Hypoglycemia Protocol Dimethicone (Proshield Plus Skin Protectant) 1 applic TOP Q8 [facility] Last Admin: 07/04/18 09:36 Dose: 1 applic Enoxaparin Sodium (Lovenox) 30 mg SC DAILY [facility]; Protocol Last Admin: 06/17/18 09:20 Dose: 30 mg Fludrocortisone Acetate (Florinef) 0.1 mg PO DAILY [facility] Last Admin: 07/04/18 09:23 Dose: 0.1 mg Glucagon (Glucagen Diagnostic Kit) 0 mg IM STAT PRN; Protocol PRN Reason: Hypoglycemia Protocol Fentanyl Citrate 2,500 mcg/ (Dextrose) 250 mls @ 5.44 mls/hr IV .Q24H [facility]; Protocol Last Titration: 07/04/18 13:59 Dose: Infused Insulin Human Lispro (Humalog) 0 units SC 0000,0600,1200,1800 [facility]; Protocol Last Admin: 07/04/18 13:33 Dose: Not Given Lamivudine (Epivir) 300 mg PO DAILY [facility]; Protocol Last Admin: 07/04/18 09:21 Dose: 300 mg Methylprednisolone (Solu-Medrol) 20 mg IVP DAILY@0900 [facility] Last Admin: 07/04/18 09:37 Dose: 20 mg Morphine Sulfate (Morphine) 2 mg IVP Q6 PRN PRN Reason: Pain, moderate (4-7) Last Admin: 07/04/18 11:54 Dose: 2 mg Nystatin (Nystop Topical Powder) 1 applic TOP TID [facility] Last Admin: 07/04/18 13:34 Dose: Not Given Raltegravir (Isentress) 400 mg PO BID [facility]; Protocol Last Admin: 07/04/18 09:30 Dose: 400 mg Tenofovir Disoproxil Fumarate (Viread) 300 mg PO DAILY [facility]; Protocol Last Admin: 07/04/18 09:38 Dose: 300 mg Trimethoprim/Sulfamethoxazole (Sulfatrim Pediatric Susp) 20 ml PO Q6 [facility]; Protocol Last Admin: 07/04/18 09:37 Dose: 20 ml Valganciclovir (Valcyte) 900 mg PO BID [facility] - Labs Labs: 07/04/18 04:50 07/04/18 04:50 PT 10.8 Seconds (9.8-13.1) 07/03/18 08:10 INR 1.0 07/03/18 08:10 APTT 25.9 Seconds (25.6-37.1) 07/03/18 08:10 - Constitutional Appears: Chronically Ill - Head Exam Head Exam: NORMAL INSPECTION - Eye Exam Eye Exam: Scleral icterus - ENT Exam Additional comments: Intubated - Neck Exam Additional comments: Tracheostomy - Respiratory Exam Respiratory Exam: Decreased Breath Sounds (at bases), Rhonchi (at bases) - Cardiovascular Exam Cardiovascular Exam: REGULAR RHYTHM - GI/Abdominal Exam GI & Abdominal Exam: Soft, Normal Bowel Sounds - Extremities Exam Additional comments: Edema BUE - Neurological Exam Additional comments: Intubated, unable to follow commands, at times anxious, restless. - Psychiatric Exam Psychiatric exam: Agitated (at times.) - Skin Skin Exam: Warm Assessment and Plan (1) Respiratory failure Status: Resolved (2) Tracheostomy status Status: Acute (3) Altered mental status Status: Acute (4) HIV (human immunodeficiency virus infection) Status: Acute (5) Fever Status: Resolved (6) Pneumonia Status: Resolved (7) Severe sepsis Status: Resolved (8) Acute renal failure Status: Acute (9) Diabetes mellitus Status: Acute - Assessment and Plan (Free Text) Plan: CXR today: L Parahilar opacity, possible PNA. Continue Fentanyl, Morphine, ART medications and rest of Tx, Attempt of weaning, When stable GI consult for Peg tube. Critical care time: 33 min.
--- NOTE | 2018-07-04 14:32 | CP.PCM.PN ---
Subjective - Date & Time of Evaluation Date of Evaluation: 07/04/18 Time of Evaluation: 08:00 - Subjective Subjective: s/p trach and peg switched to PO Valcyte await ophthalmology eval remains obtunded Objective - Vital Signs/Intake and Output Vital Signs (last 24 hours): Temp Pulse Resp BP Pulse Ox 99 F 90 20 125/72 98 07/04/18 13:00 07/04/18 14:00 07/04/18 14:00 07/04/18 14:00 07/04/18 14:00 Intake and Output: 07/04/18 07/04/18 06:59 18:59 Intake Total 1250 910 Output Total 1100 Balance 150 910 - Medications Medications: Current Medications Acetaminophen (Tylenol 325mg Tab) 650 mg PO Q4 PRN PRN Reason: Fever >100.4 F Last Admin: 06/25/18 21:40 Dose: 650 mg Acetaminophen (Tylenol 650 Mg Supp) 650 mg [place] Q6 PRN PRN Reason: Fever >100.4 F Last Admin: 06/20/18 02:30 Dose: 650 mg Acetaminophen (Tylenol 650mg/20.3ml Solution Ud) 650 mg NG Q4 PRN PRN Reason: fever 100.4 or above Dextrose (Dextrose 50% Inj) 0 ml IV STAT PRN; Protocol PRN Reason: Hypoglycemia Protocol Dextrose (Glutose 15) 0 gm PO ONCE PRN; Protocol PRN Reason: Hypoglycemia Protocol Dimethicone (Proshield Plus Skin Protectant) 1 applic TOP Q8 [facility] Last Admin: 07/04/18 09:36 Dose: 1 applic Enoxaparin Sodium (Lovenox) 30 mg SC DAILY [facility]; Protocol Last Admin: 06/17/18 09:20 Dose: 30 mg Fludrocortisone Acetate (Florinef) 0.1 mg PO DAILY [facility] Last Admin: 07/04/18 09:23 Dose: 0.1 mg Glucagon (Glucagen Diagnostic Kit) 0 mg IM STAT PRN; Protocol PRN Reason: Hypoglycemia Protocol Fentanyl Citrate 2,500 mcg/ (Dextrose) 250 mls @ 5.44 mls/hr IV .Q24H [facility]; Protocol Last Titration: 07/04/18 13:59 Dose: Infused Insulin Human Lispro (Humalog) 0 units SC 0000,0600,1200,1800 [facility]; Protocol Last Admin: 07/04/18 13:33 Dose: Not Given Lamivudine (Epivir) 300 mg PO DAILY [facility]; Protocol Last Admin: 07/04/18 09:21 Dose: 300 mg Methylprednisolone (Solu-Medrol) 20 mg IVP DAILY@0900 [facility] Last Admin: 07/04/18 09:37 Dose: 20 mg Morphine Sulfate (Morphine) 2 mg IVP Q6 PRN PRN Reason: Pain, moderate (4-7) Last Admin: 07/04/18 11:54 Dose: 2 mg Nystatin (Nystop Topical Powder) 1 applic TOP TID [facility] Last Admin: 07/04/18 13:34 Dose: Not Given Raltegravir (Isentress) 400 mg PO BID [facility]; Protocol Last Admin: 07/04/18 09:30 Dose: 400 mg Tenofovir Disoproxil Fumarate (Viread) 300 mg PO DAILY [facility]; Protocol Last Admin: 07/04/18 09:38 Dose: 300 mg Trimethoprim/Sulfamethoxazole (Sulfatrim Pediatric Susp) 20 ml PO Q6 [facility]; Protocol Last Admin: 07/04/18 09:37 Dose: 20 ml Valganciclovir (Valcyte) 900 mg PO BID [facility] - Labs Labs: 07/04/18 04:50 07/04/18 04:50 PT 10.8 Seconds (9.8-13.1) 07/03/18 08:10 INR 1.0 07/03/18 08:10 APTT 25.9 Seconds (25.6-37.1) 07/03/18 08:10 - Constitutional Appears: No Acute Distress, Confused, Chronically Ill - Head Exam Head Exam: NORMOCEPHALIC - Eye Exam Eye Exam: absent: Scleral icterus - ENT Exam ENT Exam: Mucous Membranes Dry - Neck Exam Neck Exam: absent: Lymphadenopathy - Respiratory Exam Respiratory Exam: Decreased Breath Sounds - Cardiovascular Exam Cardiovascular Exam: REGULAR RHYTHM, +S1, +S2 - GI/Abdominal Exam GI & Abdominal Exam: Soft. absent: Tenderness - Rectal Exam Rectal Exam: Deferred - Extremities Exam Extremities Exam: absent: Pedal Edema - Back Exam Back Exam: absent: CVA tenderness (L), CVA tenderness (R) - Neurological Exam Neurological Exam: Altered - Psychiatric Exam Psychiatric exam: Depressed Assessment and Plan (1) Acute renal failure Status: Acute (2) Altered mental status Status: Acute (3) Diabetes mellitus Status: Acute (4) HIV (human immunodeficiency virus infection) Status: Acute (5) Pneumonia Status: Acute (6) Encephalopathy Status: Acute (7) CMV (cytomegalovirus) infection Status: Acute - Assessment and Plan (Free Text) Assessment: 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
--- NOTE | 2018-07-04 14:43 | CP.CCUPN ---
CCU Subjective - Physician Review Subjective (Free Text): Day #17 on MV and Trach done yesterday. Opens eyes, but not following commands, on narcotic analgesics for sedation, was too agitated to attempt SBTon CPAP PS. Afebrile Temps mostly 98-99F with no fever spikes, SBPs 120s, and up to 150s with agitation; HR 70s, 20s, 100% SPO2; fluid balance last 24H= negative 0.77L. No other distress noted. ROS: Other 12 system ROS unobtainable due agitation and oral intubation. Other PMSFH: All other Nursing and physician documentation reviewed to date; no new pertinent info noted relevant to current medical problems. EXAM- HEENT: no icterus, pupils equal, 3 mm and reactive, no nystagmus NECK: no visible JVD, supple, carotids equal upstroke bilat/no bruits, Trach stoma intact, no bleeding. CHEST: decreased BS bases, no wheezes audible HEART: regular, distant, non-tachy S1S2, no murmur audible, no rubs. ABD: soft, no increased distention, no focal tenderness, BS hypoactive, EXT: +edema, no peripheral/ digital cyanosis, no calf tenderness or palpable cords, distal pulses intact and symmetrical. RUE PICC. NEURO: withdraws all extremities to pain, tone decreased. SKIN: no rashes LABS: WBC= 4.7 HGB= 9.7 PLTs = 302K 7.42/42/177 Na= 131 K= 4.9 Cl= 93 HCO3= 28 BUN/Cr= 25/1.5 BS= 111 CXR: (my interp)- trach tube noted within tracheal air column, interstitial changes appear improved today bilaterally. IMPRESSION / MAJOR PROBLEMS NOW: Major multi-system organ insufficiency / Failure- 1. Acute Hypoxemic Resp Failure 2 Pneumonia (etiology undetermined: possible PCP, atypical, other opportunistic pneumonitis, r/o Pulm TB)- one AFB smear negative. 2. AMS, r/o DUMP MOTORMAN infection, other toxic/metabolic encephalopathy, vs other possible DUMP MOTORMAN manifestations of AIDs. 3. New HIV+ 4. Azotemia / Dehydration with Hyperkalemia 5. Chronic Disease Anemia PLAN: 1. Will try SBT in a few hours after patient calms. 2. Decrease narcotics a bit. 3. Ongoing empiric abx with Bactrim. On HAART meds also. Valcyte being procured for patient. 4. Variable levels of hyponatremia, but slowly improving. 5. Repeat CT brain x 3 done and all negative for any new changes. LP done Jun 18, no clear etiological results. EEG negative for seizures. ?? HIV- other viral Encephalopathy?? 6. Full code as per family and HCP / POA. CCU Objective - Physical Exam Neurological: Positive for: Motor Func Grossly Intact
[2018-07-05] MEDS: Insulin Lispro (humaLOG) 100 Units/ml Inj SC SCH ×4 (00:11→17:01)
[2018-07-05] MEDS: Proshield Plus GEL TOP SCH ×3 (00:11→17:01)
[2018-07-05] MEDS: Tmp-Smz 200-40mg/5 ml Oral Sus(120 ml) PO SCH ×4 (03:23→21:17)
[2018-07-05 05:28] LABS: HEMOGLOBIN 9.2 g/dL (12.0-18.0); MEAN CELL VOLUME 86.2 fl (80.0-94.0); MEAN CORPUSCULAR HGB CONC 32.5 g/dL (33.0-37.0); RBC 3.28 Mil/uL (4.40-5.90); RED CELL DISTRIBUTION WIDTH 16.5 % (11.5-14.5); WHITE BLOOD COUNT 4.6 K/uL (4.8-10.8)
[2018-07-05 05:42] LABS: ALB/GLOB RATIO 0.9 (1.0-2.1); ALBUMIN 3.3 g/dL (3.5-5.0); ALT/SGPT 40 U/L (21-72); AST/SGOT 33 U/L (17-59); BLOOD UREA NITROGEN 29 mg/dl (9-20); CALCIUM 9.2 mg/dL (8.4-10.2); GFR NON-AFRICAN AMERICAN 51
[2018-07-05 06:03] LABS: ABG ALLEN TEST YES; ARTERIAL BLOOD GAS HCO3 28.5 mmol/L (21-28); ARTERIAL BLOOD GAS HEMOGLOBIN 12.2 g/dL (11.7-17.4); ARTERIAL BLOOD GAS O2 CAPACITY 16.7 mL/dL (16-24); ARTERIAL BLOOD GAS O2 CONTENT 16.9 ML/dL (15-23); ARTERIAL BLOOD GAS O2 SAT 100.9 % (95-98); ARTERIAL BLOOD GAS PCO2 46 mm/Hg (35-45); ARTERIAL BLOOD GAS PH 7.42 (7.35-7.45); ARTERIAL BLOOD GAS PO2 164 mm/Hg (80-100); ARTERIAL BLOOD GAS TCO2 31.2 mmol/L (22-28)
[2018-07-05] MEDS: Fentanyl Citrate 2,500 MCG in Dextrose 5% In Water 200 ML IV SCH (07:34)
--- NOTE | 2018-07-05 09:49 | RAD ---
Date of service: 07/05/2018 HISTORY: vented COMPARISON: 07/04/2018. FINDINGS: Stable position of the tracheostomy tube. The nasogastric tube terminates in the stomach. The right PICC line terminates at the cavoatrial junction. LUNGS: The lungs are well inflated. There is redemonstration of hazy airspace disease in the left perihilar region. No focal consolidation. PLEURA: No pleural effusions or pneumothorax. CARDIOVASCULAR: The heart is normal in size. No aortic atherosclerotic calcifications present. OSSEOUS STRUCTURES: Within normal limits for the patient's age. VISUALIZED UPPER ABDOMEN: Normal. OTHER FINDINGS: None. IMPRESSION: Persistent hazy airspace disease in the left perihilar region which may represent fibrosis however superimposed pneumonia cannot be excluded. Follow-up is advised. Stable position of support line and tubes.
[2018-07-05] MEDS: MethylPREDNISolone 40 mg Vial IVP SCH (09:51)
--- NOTE | 2018-07-05 12:44 | CP.CCUPN ---
CCU Subjective - Physician Review Subjective (Free Text): Day #18 on MV and Trach POD#2. Opens eyes, moving around in bed, all 4 extremities active, but not following commands, on narcotic analgesics for sedation, started SBTs today: placed onto CPAP 4, PS 15, 40% with good initial tolerance. Afebrile Temps mostly 98-99F with no fever spikes, SBPs 120s, and up to 140s with agitation; HR 100s, 20s, 100% SPO2; fluid balance last 24H= negative 0.75L. No other distress noted. ROS: Other 12 system ROS unobtainable due agitation and oral intubation. Other PMSFH: All other Nursing and physician documentation reviewed to date; no new pertinent info noted relevant to current medical problems. EXAM- HEENT: no icterus, pupils equal, 3 mm and reactive, no nystagmus NECK: no visible JVD, supple, carotids equal upstroke bilat/no bruits, Trach stoma intact, no bleeding. CHEST: decreased BS bases, no wheezes audible HEART: regular, distant, non-tachy S1S2, no murmur audible, no rubs. ABD: soft, no increased distention, no focal tenderness, BS hypoactive, EXT: +edema, no peripheral/ digital cyanosis, no calf tenderness or palpable cords, distal pulses intact and symmetrical. RUE PICC. NEURO: withdraws all extremities to pain, tone decreased. SKIN: no rashes LABS: WBC= 4.6 HGB= 9.2 PLTs = 333K 7.42/46/164 Na= 131 K= 4.8 Cl= 93 HCO3= 30 BUN/Cr= 29/1.4 BS= 100 CXR: (my interp)- trach tube noted within tracheal air column, no new interstitial changes bilaterally. IMPRESSION / MAJOR PROBLEMS NOW: Major multi-system organ insufficiency / Failure- 1. Acute Hypoxemic Resp Failure 2 Pneumonia (etiology undetermined: possible PCP, atypical, other opportunistic pneumonitis, r/o Pulm TB)- one AFB smear negative. 2. AMS, r/o PHARMACIST HELPER infection, other toxic/metabolic encephalopathy, vs other possible PHARMACIST HELPER manifestations of AIDs. 3. New HIV+ 4. Azotemia / Dehydration with Hyperkalemia 5. Chronic Disease Anemia PLAN: 1. one hour SBT as tolerated, if so, may try trach collar. 2. Decrease narcotics as tolerated. 3. Ongoing empiric abx with Bactrim. On HAART meds also. Valcyte being procured for patient. 4. Variable levels of hyponatremia, but slowly improving. 5. Repeat CT brain x 3 done and all negative for any new changes. LP done Jun 18, no clear etiological results. EEG negative for seizures. ?? HIV- other viral Encephalopathy?? 6. Full code as per family and HCP / POA. CCU Objective - Physical Exam Neurological: Positive for: Motor Func Grossly Intact
--- NOTE | 2018-07-05 17:09 | CP.PCM.PN ---
Subjective - Date & Time of Evaluation Date of Evaluation: 07/05/18 Time of Evaluation: 11:25 - Subjective Subjective: F/U Respiratory failure, Tracheostomy Eyes open, some expontaneous movements with the head and upper extremities. Objective - Vital Signs/Intake and Output Vital Signs (last 24 hours): Temp Pulse Resp BP Pulse Ox 98.2 F 90 15 137/74 97 07/05/18 16:00 07/05/18 16:00 07/05/18 16:00 07/05/18 16:00 07/05/18 16:00 Intake and Output: 07/05/18 07/05/18 06:59 18:59 Intake Total 850 1394 Output Total 650 Balance 200 1394 - Medications Medications: Current Medications Acetaminophen (Tylenol 325mg Tab) 650 mg PO Q4 PRN PRN Reason: Fever >100.4 F Last Admin: 06/25/18 21:40 Dose: 650 mg Acetaminophen (Tylenol 650 Mg Supp) 650 mg [place] Q6 PRN PRN Reason: Fever >100.4 F Last Admin: 06/20/18 02:30 Dose: 650 mg Acetaminophen (Tylenol 650mg/20.3ml Solution Ud) 650 mg NG Q4 PRN PRN Reason: fever 100.4 or above Dextrose (Dextrose 50% Inj) 0 ml IV STAT PRN; Protocol PRN Reason: Hypoglycemia Protocol Dextrose (Glutose 15) 0 gm PO ONCE PRN; Protocol PRN Reason: Hypoglycemia Protocol Dimethicone (Proshield Plus Skin Protectant) 1 applic TOP Q8 [facility] Last Admin: 07/05/18 17:01 Dose: 1 applic Enoxaparin Sodium (Lovenox) 30 mg SC DAILY [facility]; Protocol Last Admin: 06/17/18 09:20 Dose: 30 mg Fludrocortisone Acetate (Florinef) 0.1 mg PO DAILY [facility] Last Admin: 07/05/18 09:49 Dose: 0.1 mg Glucagon (Glucagen Diagnostic Kit) 0 mg IM STAT PRN; Protocol PRN Reason: Hypoglycemia Protocol Fentanyl Citrate 2,500 mcg/ (Sodium Chloride) 250 mls @ 25.1 mls/hr IV .Q9H58M [facility]; Protocol Last Admin: 07/05/18 16:58 Dose: 5.5 mcg/kg/hr, 25.1 mls/hr Insulin Human Lispro (Humalog) 0 units SC 0000,0600,1200,1800 [facility]; Protocol Last Admin: 07/05/18 17:01 Dose: 1 units Lamivudine (Epivir) 300 mg PO DAILY [facility]; Protocol Last Admin: 07/05/18 09:49 Dose: 300 mg Methylprednisolone (Solu-Medrol) 20 mg IVP DAILY@0900 [facility] Last Admin: 07/05/18 09:51 Dose: 20 mg Morphine Sulfate (Morphine) 2 mg IVP Q6 PRN PRN Reason: Pain, moderate (4-7) Last Admin: 07/05/18 05:34 Dose: 2 mg Nystatin (Nystop Topical Powder) 1 applic TOP TID [facility] Last Admin: 07/05/18 17:00 Dose: 1 applic Raltegravir (Isentress) 400 mg PO BID [facility]; Protocol Last Admin: 07/05/18 16:59 Dose: 400 mg Tenofovir Disoproxil Fumarate (Viread) 300 mg PO DAILY [facility]; Protocol Last Admin: 07/05/18 09:53 Dose: 300 mg Trimethoprim/Sulfamethoxazole (Sulfatrim Pediatric Susp) 20 ml PO Q6 [facility]; Protocol Last Admin: 07/05/18 17:02 Dose: 20 ml Valganciclovir (Valcyte) 900 mg PO BID [facility] Last Admin: 07/05/18 17:03 Dose: 900 mg - Labs Labs: 07/05/18 04:50 07/05/18 04:50 PT 10.8 Seconds (9.8-13.1) 07/03/18 08:10 INR 1.0 07/03/18 08:10 APTT 25.9 Seconds (25.6-37.1) 07/03/18 08:10 - Constitutional Appears: Chronically Ill - Head Exam Head Exam: NORMAL INSPECTION - Eye Exam Eye Exam: Scleral icterus - ENT Exam ENT Exam: Normal Exam - Neck Exam Additional comments: Tracheostomy - Respiratory Exam Respiratory Exam: Decreased Breath Sounds (at bases) - Cardiovascular Exam Cardiovascular Exam: REGULAR RHYTHM - GI/Abdominal Exam GI & Abdominal Exam: Soft, Normal Bowel Sounds - Exam Additional comments: Yang cath - Extremities Exam Additional comments: Edema BUE - Neurological Exam Additional comments: Restless movements with head and extremities, unable to follows commands. - Skin Skin Exam: Warm Assessment and Plan (1) Respiratory failure Status: Resolved (2) Tracheostomy status Status: Acute (3) Altered mental status Status: Acute (4) HIV (human immunodeficiency virus infection) Status: Acute (5) Fever Status: Resolved (6) Pneumonia Status: Resolved (7) Severe sepsis Status: Resolved (8) Acute renal failure Status: Acute (9) Diabetes mellitus Status: Acute - Assessment and Plan (Free Text) Plan: CXR today: Continue PNA, Continue CPAP PS, weaning trial, Morphine, Solu- Medrol and rest of Tx. Critical care time: 35 min.
--- NOTE | 2018-07-05 20:51 | CP.PCM.PN ---
Subjective - Date & Time of Evaluation Date of Evaluation: 07/05/18 Time of Evaluation: 11:00 - Subjective Subjective: Patient remained vented and intubated. Vital signs noted to be stable. Patient receiving NG tube feeding. Objective - Vital Signs/Intake and Output Vital Signs (last 24 hours): Temp Pulse Resp BP Pulse Ox 98.2 F 90 14 150/87 100 07/05/18 16:00 07/05/18 18:00 07/05/18 18:00 07/05/18 18:00 07/05/18 18:00 Intake and Output: 07/05/18 07/06/18 18:59 06:59 Intake Total 1634 Output Total 1200 Balance 434 - Medications Medications: Current Medications Acetaminophen (Tylenol 325mg Tab) 650 mg PO Q4 PRN PRN Reason: Fever >100.4 F Last Admin: 06/25/18 21:40 Dose: 650 mg Acetaminophen (Tylenol 650 Mg Supp) 650 mg [place] Q6 PRN PRN Reason: Fever >100.4 F Last Admin: 06/20/18 02:30 Dose: 650 mg Acetaminophen (Tylenol 650mg/20.3ml Solution Ud) 650 mg NG Q4 PRN PRN Reason: fever 100.4 or above Dextrose (Dextrose 50% Inj) 0 ml IV STAT PRN; Protocol PRN Reason: Hypoglycemia Protocol Dextrose (Glutose 15) 0 gm PO ONCE PRN; Protocol PRN Reason: Hypoglycemia Protocol Dimethicone (Proshield Plus Skin Protectant) 1 applic TOP Q8 [facility] Last Admin: 07/05/18 17:01 Dose: 1 applic Enoxaparin Sodium (Lovenox) 30 mg SC DAILY [facility]; Protocol Last Admin: 06/17/18 09:20 Dose: 30 mg Fludrocortisone Acetate (Florinef) 0.1 mg PO DAILY [facility] Last Admin: 07/05/18 09:49 Dose: 0.1 mg Glucagon (Glucagen Diagnostic Kit) 0 mg IM STAT PRN; Protocol PRN Reason: Hypoglycemia Protocol Fentanyl Citrate 2,500 mcg/ (Sodium Chloride) 250 mls @ 25.1 mls/hr IV .Q9H58M [facility]; Protocol Last Admin: 07/05/18 16:58 Dose: 5.5 mcg/kg/hr, 25.1 mls/hr Insulin Human Lispro (Humalog) 0 units SC 0000,0600,1200,1800 [facility]; Protocol Last Admin: 07/05/18 17:01 Dose: 1 units Lamivudine (Epivir) 300 mg PO DAILY [facility]; Protocol Last Admin: 07/05/18 09:49 Dose: 300 mg Methylprednisolone (Solu-Medrol) 20 mg IVP DAILY@0900 [facility] Last Admin: 07/05/18 09:51 Dose: 20 mg Morphine Sulfate (Morphine) 2 mg IVP Q6 PRN PRN Reason: Pain, moderate (4-7) Last Admin: 07/05/18 05:34 Dose: 2 mg Nystatin (Nystop Topical Powder) 1 applic TOP TID [facility] Last Admin: 07/05/18 17:00 Dose: 1 applic Raltegravir (Isentress) 400 mg PO BID [facility]; Protocol Last Admin: 07/05/18 16:59 Dose: 400 mg Tenofovir Disoproxil Fumarate (Viread) 300 mg PO DAILY [facility]; Protocol Last Admin: 07/05/18 09:53 Dose: 300 mg Trimethoprim/Sulfamethoxazole (Sulfatrim Pediatric Susp) 20 ml PO Q6 [facility]; Protocol Last Admin: 07/05/18 17:02 Dose: 20 ml Valganciclovir (Valcyte) 900 mg PO BID [facility] Last Admin: 07/05/18 17:03 Dose: 900 mg - Labs Labs: 07/05/18 04:50 07/05/18 04:50 PT 10.8 Seconds (9.8-13.1) 07/03/18 08:10 INR 1.0 07/03/18 08:10 APTT 25.9 Seconds (25.6-37.1) 07/03/18 08:10 - Constitutional Appears: No Acute Distress - Eye Exam Eye Exam: Conjunctival injection - ENT Exam ENT Exam: Mucous Membranes Dry - Respiratory Exam Respiratory Exam: absent: Chest Wall Tenderness - Cardiovascular Exam Cardiovascular Exam: absent: Gallop, JVD, Rubs - GI/Abdominal Exam GI & Abdominal Exam: Soft, Normal Bowel Sounds - Extremities Exam Extremities Exam: absent: Calf Tenderness - Back Exam Back Exam: absent: CVA tenderness (L), CVA tenderness (R) - Neurological Exam Neurological Exam: Altered - Psychiatric Exam Psychiatric exam: Flat Affect - Skin Skin Exam: absent: Cyanosis Assessment and Plan (1) Acute renal failure Assessment & Plan: Acute renal failure Sepsis Encephalopathy Respiratory failure Hyponatremia Recommendation Hyponatremia persisted. Switch all IV medication to be mixed with normal saline. Patient still receiving IV medication max with D5W. Kidney function remains stable. Status: Acute (2) HIV (human immunodeficiency virus infection) Status: Acute
[2018-07-06] MEDS: Insulin Lispro (humaLOG) 100 Units/ml Inj SC SCH ×4 (01:16→17:44)
[2018-07-06] MEDS: Proshield Plus GEL TOP SCH ×3 (02:17→16:25)
[2018-07-06] MEDS ORDERED: Chlorhexidine Gluconate 1 APPL/PKT TP ONE (04:36)
[2018-07-06 05:29] LABS: ABG ALLEN TEST YES; ARTERIAL BLOOD GAS HCO3 29.7 mmol/L (21-28); ARTERIAL BLOOD GAS HEMOGLOBIN 9.8 g/dL (11.7-17.4); ARTERIAL BLOOD GAS O2 CAPACITY 13.7 mL/dL (16-24); ARTERIAL BLOOD GAS O2 CONTENT 13.7 ML/dL (15-23); ARTERIAL BLOOD GAS O2 SAT 99.9 % (95-98); ARTERIAL BLOOD GAS PCO2 50 mm/Hg (35-45); ARTERIAL BLOOD GAS PH 7.41 (7.35-7.45); ARTERIAL BLOOD GAS PO2 181 mm/Hg (80-100); ARTERIAL BLOOD GAS TCO2 33.2 mmol/L (22-28)
[2018-07-06] MEDS: Tmp-Smz 200-40mg/5 ml Oral Sus(120 ml) PO SCH ×4 (06:02→22:00)
[2018-07-06 06:19] LABS: MEAN CELL VOLUME 86.6 fl (80.0-94.0); MEAN CORPUSCULAR HEMOGLOBIN 28.1 pg (27.0-31.0); MEAN CORPUSCULAR HGB CONC 32.4 g/dL (33.0-37.0); RBC 3.2 Mil/uL (4.40-5.90); RED CELL DISTRIBUTION WIDTH 17.2 % (11.5-14.5); WHITE BLOOD COUNT 4.8 K/uL (4.8-10.8)
[2018-07-06 06:39] LABS: ALB/GLOB RATIO 0.9 (1.0-2.1); ALBUMIN 3.3 g/dL (3.5-5.0); ALT/SGPT 47 U/L (21-72); AST/SGOT 40 U/L (17-59); BLOOD UREA NITROGEN 25 mg/dl (9-20); GFR NON-AFRICAN AMERICAN 55
[2018-07-06] MEDS: MethylPREDNISolone 40 mg Vial IVP SCH (09:41)
--- NOTE | 2018-07-06 11:13 | CP.CCUPN ---
CCU Subjective - Physician Review Subjective (Free Text): Sedation with Propofol decreased, able to follow simple command to grasp hands. Still breathing 16 on AC 16, TV 400ml, 50% PEEP 5. Remains on Levophed, dose able to be reduced to 20 mcg. NO Fever spikes overnight; temps mostly 99F, SBPs 90-100s, HR 96, 99% SPO2. Approx 1.5 liter positive fluid balance. Vaginal clots have stopped. OGT draining dark green bilious fluid. Tube feeds off. No other distress noted. ROS: No other pertinent negs or positive on 10+ system review obtainable due to sedation. Other PMSFH: All other Nursing and physician documentation reviewed to date; no new pertinent info noted relevant to current medical problems. EXAM- HEENT: no icterus, pupils equal, 3 mm and reactive, no gaze preference NECK: no visible JVD, supple, carotids equal upstroke bilat/no bruits CHEST: decreased BS bases, no wheezes audible, bloody fluid drained dressing over R breast. Left chest portacath. HEART: regular, distant, tachy S1S2, no murmur audible, no rubs. ABD: soft, ++distention with ascites, no focal tenderness, BS hypoactive, dried necrotic lesion over umbilicus unchanged. Previous paracentesis puncture site still leaking ascitic fluid. EXT: ++ edema LEs, and arms +ulcer posterior R calf worse than L, no calf tenderness or palpable cords, distal pulses intact and symmetrical; still leaking ascitic fluid from previous R lateral paracentesis site several weeks ago. NEURO: withdraws to pain stimuli, + tone SKIN: no rashes LABS: WBC= 2.7 HGB= 7.8 PLTs = 55K Na= 151 K= 3.5 Cl= 113 HCO3= 27 BUN/Cr= 97/1.1 BS= 99 CXR: (my interp)- ETT position OK above cassie. Decreased lung volumes bilaterally. Worse Left basilar interstitial changes prominent. IMPRESSION / MAJOR PROBLEMS NOW: 1. Acute hypoxemic Resp Failure, 2 bilat multi-lobar pneumonia 2. Persistent vaginal Bleeding 3. Severe Sepsis with shock, 2 Pneumonia, r/o bacteremia 4. Acute on Chronic disease Anemia 5. h/o DVT- bilat CFV on Feb 5. 6. s/p Paracentesis Feb 5 for 2.5 liters PLAN: 1. No need for any blood products today. Two doses of Tranexamic acid given over the past 2 days may have been successful in attempt to stabilize ongoing bleeding and suspected GI tract bleeding as well. Consider GI and MASSAGE THERAPIST Surgery evals. Consider IR eval if patient amenable to embolization. 2. Day # 19 MV support. Consider Gen Surg eval for Trach if family wishes to continue current aggressive care. 3. Checked coags again which remain normal; and no DIC. 4. No signs of bone marrow recovery with WBC and platelet counts. 5. Bhupinder / Vanco / Diflucan, repeat BCs up to Jun 29 negative so far. Repeat Sputum Cx still growing +yeast. 6. Resume tube feeds. Time spent with this patient did not overlap with any other provider's medical or critical care time. Additionally the code selected for the services rendered in this note includes the time spent: talking to the patients family, associated physicians and reviewing hospital data/results not listed here which extended to a total of 30 minutes.
--- NOTE | 2018-07-06 11:43 | CP.PCM.PN ---
Subjective - Date & Time of Evaluation Date of Evaluation: 07/06/18 Time of Evaluation: 11:43 - Subjective Subjective: Remain obtunded and intubated Vital signs reviewed and noted Objective - Vital Signs/Intake and Output Vital Signs (last 24 hours): Temp Pulse Resp BP Pulse Ox 98.6 F 111 H 22 169/100 H 100 07/06/18 08:00 07/06/18 10:00 07/06/18 10:00 07/06/18 10:00 07/06/18 10:00 Intake and Output: 07/06/18 07/06/18 06:59 18:59 Intake Total 380 239 Output Total 500 Balance -120 239 - Medications Medications: Current Medications Acetaminophen (Tylenol 325mg Tab) 650 mg PO Q4 PRN PRN Reason: Fever >100.4 F Last Admin: 06/25/18 21:40 Dose: 650 mg Acetaminophen (Tylenol 650 Mg Supp) 650 mg [place] Q6 PRN PRN Reason: Fever >100.4 F Last Admin: 06/20/18 02:30 Dose: 650 mg Acetaminophen (Tylenol 650mg/20.3ml Solution Ud) 650 mg NG Q4 PRN PRN Reason: fever 100.4 or above Dextrose (Dextrose 50% Inj) 0 ml IV STAT PRN; Protocol PRN Reason: Hypoglycemia Protocol Dextrose (Glutose 15) 0 gm PO ONCE PRN; Protocol PRN Reason: Hypoglycemia Protocol Dimethicone (Proshield Plus Skin Protectant) 1 applic TOP Q8 [facility] Last Admin: 07/06/18 09:39 Dose: 1 applic Enoxaparin Sodium (Lovenox) 30 mg SC DAILY [facility]; Protocol Last Admin: 06/17/18 09:20 Dose: 30 mg Fludrocortisone Acetate (Florinef) 0.1 mg PO DAILY [facility] Last Admin: 07/06/18 09:42 Dose: 0.1 mg Glucagon (Glucagen Diagnostic Kit) 0 mg IM STAT PRN; Protocol PRN Reason: Hypoglycemia Protocol Insulin Human Lispro (Humalog) 0 units SC 0000,0600,1200,1800 [facility]; Protocol Last Admin: 07/06/18 06:01 Dose: Not Given Lamivudine (Epivir) 300 mg PO DAILY [facility]; Protocol Last Admin: 07/06/18 09:42 Dose: 300 mg Methylprednisolone (Solu-Medrol) 20 mg IVP DAILY@0900 [facility] Last Admin: 07/06/18 09:41 Dose: 20 mg Morphine Sulfate (Morphine) 2 mg IVP Q6 PRN PRN Reason: Pain, moderate (4-7) Last Admin: 07/06/18 02:10 Dose: 2 mg Nystatin (Nystop Topical Powder) 1 applic TOP TID [facility] Last Admin: 07/06/18 09:40 Dose: 1 applic Ondansetron HCl (Zofran Inj) 4 mg IVP Q4 PRN PRN Reason: Nausea/Vomiting Last Admin: 07/05/18 21:16 Dose: 4 mg Raltegravir (Isentress) 400 mg PO BID [facility]; Protocol Last Admin: 07/06/18 09:44 Dose: 400 mg Tenofovir Disoproxil Fumarate (Viread) 300 mg PO DAILY [facility]; Protocol Last Admin: 07/06/18 09:42 Dose: 300 mg Trimethoprim/Sulfamethoxazole (Sulfatrim Pediatric Susp) 20 ml PO Q6 [facility]; Protocol Last Admin: 07/06/18 09:45 Dose: 20 ml Valganciclovir (Valcyte) 900 mg PO BID [facility] Last Admin: 07/06/18 09:46 Dose: 900 mg - Labs Labs: 07/06/18 05:10 07/06/18 05:10 PT 10.8 Seconds (9.8-13.1) 07/03/18 08:10 INR 1.0 07/03/18 08:10 APTT 25.9 Seconds (25.6-37.1) 07/03/18 08:10 - Constitutional Appears: No Acute Distress - Eye Exam Eye Exam: Conjunctival injection - ENT Exam ENT Exam: Mucous Membranes Moist - Neck Exam Neck Exam: absent: Lymphadenopathy - Respiratory Exam Respiratory Exam: Rhonchi. absent: Chest Wall Tenderness - GI/Abdominal Exam GI & Abdominal Exam: Soft, Normal Bowel Sounds - Extremities Exam Extremities Exam: absent: Calf Tenderness - Back Exam Back Exam: absent: CVA tenderness (L), CVA tenderness (R) - Neurological Exam Neurological Exam: Altered - Psychiatric Exam Psychiatric exam: Flat Affect - Skin Skin Exam: absent: Cyanosis Assessment and Plan (1) Acute renal failure Assessment & Plan: HUGO improving Sepsis Encephalopathy Respiratory failure Hyponatremia Recommendation Hyponatremia continue to improve last serum sodium 133 Patient remain on respirator and obtunded As per ICU team management was on antibiotics considering GFR and respiratory management Status: Acute (2) HIV (human immunodeficiency virus infection) Status: Acute
--- NOTE | 2018-07-06 11:56 | CP.CCUPN ---
CCU Subjective - Physician Review Subjective (Free Text): Day #19 on MV and Trach POD#3. Since Trach procedure, well tolerated CPAP PS levels yesterday and today in attempt to liberate from MV support. So far, has tolerated almost 24H on moderate levels of CPAP, and tolerated low level CPAP PS this AM. Opens eyes, moving around in bed, all 4 extremities active, but not following commands, remained on narcotic analgesics for sedation. Afebrile Temps mostly 98-99F with no fever spikes, SBPs 160s with agitation; HR 100s, 13s, 100% SPO2; fluid balance last 24H= negative 1.7L. No other distress noted. ROS: Other 12 system ROS unobtainable due agitation and oral intubation. Other PMSFH: All other Nursing and physician documentation reviewed to date; no new pertinent info noted relevant to current medical problems. EXAM- HEENT: no icterus, pupils equal, 3 mm and reactive, no nystagmus NECK: no visible JVD, supple, carotids equal upstroke bilat/no bruits, Trach stoma intact, no bleeding. CHEST: decreased BS bases, no wheezes audible HEART: regular, distant, non-tachy S1S2, no murmur audible, no rubs. ABD: soft, no increased distention, no focal tenderness, BS hypoactive, EXT: +edema, no peripheral/ digital cyanosis, no calf tenderness or palpable cords, distal pulses intact and symmetrical. RUE PICC. NEURO: withdraws all extremities to pain, tone decreased. SKIN: no rashes LABS: WBC= 4.8 HGB= 9.0 PLTs = 329K 7.41/50/181 Na= 133 K= 4.2 Cl= 93 HCO3= 30 BUN/Cr= 59/1.3 BS= 98 CXR: (my interp)- trach tube noted within tracheal air column, no new interstitial changes bilaterally. IMPRESSION / MAJOR PROBLEMS NOW: Major multi-system organ insufficiency / Failure- 1. Acute Hypoxemic Resp Failure 2 Pneumonia (etiology undetermined: possible PCP, atypical, other opportunistic pneumonitis, r/o'ed Pulm TB) 2. 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 3. New HIV+ 4. Azotemia / Dehydration with Hyperkalemia 5. Chronic Disease Anemia PLAN: 1. Stable for trach collar today as tolerated, Stop narcotics. Would not decannulate yet. 2. Ongoing empiric abx with Bactrim. On HAART meds also. Valcyte procured for patient. 3. Stop tube feeds, would not replace NGT again unless he fails dysphagia/swallow eval by GEOPHYSICAL MANAGER. Therefore, hold on PEG plans for now. 4. Full code as per family and HCP / POA.
[2018-07-06] MEDS ORDERED: Dexmedetomidine Hydrochloride 400 MCG in Sodium Chloride 0.9% 96 ML IV ONE (12:23)
--- NOTE | 2018-07-06 13:19 | RAD ---
Date of service: 07/06/2018 HISTORY: vomiting COMPARISON: None available. FINDINGS: BOWEL: Normal. No obstruction. No free air. Rectal probe inserted. No large free intra peritoneal gas collection evident. NG tube terminates at left upper quadrant abdomen. BONES: Normal. OTHER FINDINGS: None. IMPRESSION: Nonobstructive bowel gas pattern.
--- NOTE | 2018-07-06 13:37 | CP.PCM.PN ---
Subjective - Date & Time of Evaluation Date of Evaluation: 07/06/18 Time of Evaluation: 08:00 - Subjective Subjective: opens eyes non responsive moves all extremities afebrile s/p trach/ peg Objective - Vital Signs/Intake and Output Vital Signs (last 24 hours): Temp Pulse Resp BP Pulse Ox 99.9 F H 126 H 27 H 155/104 H 100 07/06/18 12:00 07/06/18 12:00 07/06/18 12:00 07/06/18 12:00 07/06/18 12:00 Intake and Output: 07/06/18 07/06/18 06:59 18:59 Intake Total 380 389 Output Total 500 Balance -120 389 - Medications Medications: Current Medications Acetaminophen (Tylenol 325mg Tab) 650 mg PO Q4 PRN PRN Reason: Fever >100.4 F Last Admin: 06/25/18 21:40 Dose: 650 mg Acetaminophen (Tylenol 650 Mg Supp) 650 mg [place] Q6 PRN PRN Reason: Fever >100.4 F Last Admin: 06/20/18 02:30 Dose: 650 mg Acetaminophen (Tylenol 650mg/20.3ml Solution Ud) 650 mg [place] Q4 PRN PRN Reason: fever 100.4 or above Dextrose (Dextrose 50% Inj) 0 ml IV STAT PRN; Protocol PRN Reason: Hypoglycemia Protocol Dextrose (Glutose 15) 0 gm PO ONCE PRN; Protocol PRN Reason: Hypoglycemia Protocol Dimethicone (Proshield Plus Skin Protectant) 1 applic TOP Q8 [facility] Last Admin: 07/06/18 09:39 Dose: 1 applic Enoxaparin Sodium (Lovenox) 30 mg SC DAILY [facility]; Protocol Last Admin: 06/17/18 09:20 Dose: 30 mg Fludrocortisone Acetate (Florinef) 0.1 mg PO DAILY [facility] Last Admin: 07/06/18 09:42 Dose: 0.1 mg Glucagon (Glucagen Diagnostic Kit) 0 mg IM STAT PRN; Protocol PRN Reason: Hypoglycemia Protocol Dexmedetomidine HCl 400 mcg/ (Sodium Chloride) 100 mls @ 2.28 mls/hr IV .Q24H [facility]; Protocol Stop: 07/07/18 12:22 Insulin Human Lispro (Humalog) 0 units SC 0000,0600,1200,1800 [facility]; Protocol Last Admin: 07/06/18 06:01 Dose: Not Given Lamivudine (Epivir) 300 mg PO DAILY [facility]; Protocol Last Admin: 07/06/18 09:42 Dose: 300 mg Methylprednisolone (Solu-Medrol) 20 mg IVP DAILY@0900 [facility] Last Admin: 07/06/18 09:41 Dose: 20 mg Morphine Sulfate (Morphine) 2 mg IVP Q6 PRN PRN Reason: Pain, moderate (4-7) Last Admin: 07/06/18 02:10 Dose: 2 mg Nystatin (Nystop Topical Powder) 1 applic TOP TID [facility] Last Admin: 07/06/18 09:40 Dose: 1 applic Ondansetron HCl (Zofran Inj) 4 mg IVP Q4 PRN PRN Reason: Nausea/Vomiting Last Admin: 07/05/18 21:16 Dose: 4 mg Raltegravir (Isentress) 400 mg PO BID [facility]; Protocol Last Admin: 07/06/18 09:44 Dose: 400 mg Tenofovir Disoproxil Fumarate (Viread) 300 mg PO DAILY [facility]; Protocol Last Admin: 07/06/18 09:42 Dose: 300 mg Trimethoprim/Sulfamethoxazole (Sulfatrim Pediatric Susp) 20 ml PO Q6 [facility]; Protocol Last Admin: 07/06/18 09:45 Dose: 20 ml Valganciclovir (Valcyte) 900 mg PO BID [facility] Last Admin: 07/06/18 09:46 Dose: 900 mg - Labs Labs: 07/06/18 05:10 07/06/18 05:10 PT 10.8 Seconds (9.8-13.1) 07/03/18 08:10 INR 1.0 07/03/18 08:10 APTT 25.9 Seconds (25.6-37.1) 07/03/18 08:10 - Constitutional Appears: Confused, Cachectic, Chronically Ill - Head Exam Head Exam: NORMOCEPHALIC - Eye Exam Eye Exam: absent: Scleral icterus - ENT Exam ENT Exam: Mucous Membranes Dry - Neck Exam Neck Exam: absent: Lymphadenopathy - Respiratory Exam Respiratory Exam: Decreased Breath Sounds, Rhonchi - Cardiovascular Exam Cardiovascular Exam: REGULAR RHYTHM, +S1, +S2 - GI/Abdominal Exam GI & Abdominal Exam: Distended, Soft - Rectal Exam Rectal Exam: Deferred - Exam Exam: NORMAL INSPECTION - Extremities Exam Extremities Exam: absent: Pedal Edema - Back Exam Back Exam: absent: CVA tenderness (L), CVA tenderness (R) - Neurological Exam Neurological Exam: Altered - Psychiatric Exam Psychiatric exam: Depressed - Skin Skin Exam: Dry Assessment and Plan (1) Acute renal failure Status: Acute (2) Altered mental status Status: Acute (3) Diabetes mellitus Status: Acute (4) HIV (human immunodeficiency virus infection) Status: Acute (5) Pneumonia Status: Acute (6) Encephalopathy Status: Acute (7) CMV (cytomegalovirus) infection Status: Acute - Assessment and Plan (Free Text) 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
--- NOTE | 2018-07-06 13:58 | CP.PCM.PN ---
Subjective - Date & Time of Evaluation Date of Evaluation: 07/06/18 Time of Evaluation: 13:57 - Subjective Subjective: no overnight events Objective - Vital Signs/Intake and Output Vital Signs (last 24 hours): Temp Pulse Resp BP Pulse Ox 99.9 F H 126 H 27 H 155/104 H 100 07/06/18 12:00 07/06/18 12:00 07/06/18 12:00 07/06/18 12:00 07/06/18 12:00 Intake and Output: 07/06/18 07/06/18 06:59 18:59 Intake Total 380 389 Output Total 500 Balance -120 389 - Medications Medications: Current Medications Acetaminophen (Tylenol 325mg Tab) 650 mg PO Q4 PRN PRN Reason: Fever >100.4 F Last Admin: 06/25/18 21:40 Dose: 650 mg Acetaminophen (Tylenol 650 Mg Supp) 650 mg [place] Q6 PRN PRN Reason: Fever >100.4 F Last Admin: 06/20/18 02:30 Dose: 650 mg Acetaminophen (Tylenol 650mg/20.3ml Solution Ud) 650 mg NG Q4 PRN PRN Reason: fever 100.4 or above Dextrose (Dextrose 50% Inj) 0 ml IV STAT PRN; Protocol PRN Reason: Hypoglycemia Protocol Dextrose (Glutose 15) 0 gm PO ONCE PRN; Protocol PRN Reason: Hypoglycemia Protocol Dimethicone (Proshield Plus Skin Protectant) 1 applic TOP Q8 [facility] Last Admin: 07/06/18 09:39 Dose: 1 applic Enoxaparin Sodium (Lovenox) 30 mg SC DAILY [facility]; Protocol Last Admin: 06/17/18 09:20 Dose: 30 mg Fludrocortisone Acetate (Florinef) 0.1 mg PO DAILY [facility] Last Admin: 07/06/18 09:42 Dose: 0.1 mg Glucagon (Glucagen Diagnostic Kit) 0 mg IM STAT PRN; Protocol PRN Reason: Hypoglycemia Protocol Dexmedetomidine HCl 400 mcg/ (Sodium Chloride) 100 mls @ 2.28 mls/hr IV .Q24H [facility]; Protocol Stop: 07/07/18 12:22 Insulin Human Lispro (Humalog) 0 units SC 0000,0600,1200,1800 [facility]; Protocol Last Admin: 07/06/18 06:01 Dose: Not Given Lamivudine (Epivir) 300 mg PO DAILY [facility]; Protocol Last Admin: 07/06/18 09:42 Dose: 300 mg Methylprednisolone (Solu-Medrol) 20 mg IVP DAILY@0900 [facility] Last Admin: 07/06/18 09:41 Dose: 20 mg Morphine Sulfate (Morphine) 2 mg IVP Q6 PRN PRN Reason: Pain, moderate (4-7) Last Admin: 07/06/18 02:10 Dose: 2 mg Nystatin (Nystop Topical Powder) 1 applic TOP TID [facility] Last Admin: 07/06/18 09:40 Dose: 1 applic Ondansetron HCl (Zofran Inj) 4 mg IVP Q4 PRN PRN Reason: Nausea/Vomiting Last Admin: 07/05/18 21:16 Dose: 4 mg Raltegravir (Isentress) 400 mg PO BID [facility]; Protocol Last Admin: 07/06/18 09:44 Dose: 400 mg Tenofovir Disoproxil Fumarate (Viread) 300 mg PO DAILY [facility]; Protocol Last Admin: 07/06/18 09:42 Dose: 300 mg Trimethoprim/Sulfamethoxazole (Sulfatrim Pediatric Susp) 20 ml PO Q6 [facility]; Protocol Last Admin: 07/06/18 09:45 Dose: 20 ml Valganciclovir (Valcyte) 900 mg PO BID [facility] Last Admin: 07/06/18 09:46 Dose: 900 mg - Labs Labs: 07/06/18 05:10 07/06/18 05:10 PT 10.8 Seconds (9.8-13.1) 07/03/18 08:10 INR 1.0 07/03/18 08:10 APTT 25.9 Seconds (25.6-37.1) 07/03/18 08:10 - Head Exam Head Exam: NORMOCEPHALIC - Neck Exam Neck Exam: Normal Inspection - Respiratory Exam Respiratory Exam: Clear to Ausculation Bilateral, Rhonchi, NORMAL BREATHING PATTERN - Cardiovascular Exam Cardiovascular Exam: REGULAR RHYTHM - GI/Abdominal Exam GI & Abdominal Exam: Soft, Normal Bowel Sounds Assessment and Plan - Assessment and Plan (Free Text) Assessment: 67 yo male with dysphagia trial of po if safe consider EGD if cant
--- NOTE | 2018-07-06 16:09 | CP.PCM.PN ---
Subjective - Date & Time of Evaluation Date of Evaluation: 07/06/18 Time of Evaluation: 13:50 - Subjective Subjective: F/U Respiratory failure, Tracheostomy Eyes open, moving head and extremities, not following commands, on CPAP PS since yesterday Objective - Vital Signs/Intake and Output Vital Signs (last 24 hours): Temp Pulse Resp BP Pulse Ox 99.9 F H 112 H 27 H 144/101 H 100 07/06/18 12:00 07/06/18 14:00 07/06/18 14:00 07/06/18 14:00 07/06/18 14:00 Intake and Output: 07/06/18 07/06/18 06:59 18:59 Intake Total 380 389 Output Total 500 Balance -120 389 - Medications Medications: Current Medications Acetaminophen (Tylenol 325mg Tab) 650 mg PO Q4 PRN PRN Reason: Fever >100.4 F Last Admin: 06/25/18 21:40 Dose: 650 mg Acetaminophen (Tylenol 650 Mg Supp) 650 mg [place] Q6 PRN PRN Reason: Fever >100.4 F Last Admin: 06/20/18 02:30 Dose: 650 mg Acetaminophen (Tylenol 650mg/20.3ml Solution Ud) 650 mg NG Q4 PRN PRN Reason: fever 100.4 or above Dextrose (Dextrose 50% Inj) 0 ml IV STAT PRN; Protocol PRN Reason: Hypoglycemia Protocol Dextrose (Glutose 15) 0 gm PO ONCE PRN; Protocol PRN Reason: Hypoglycemia Protocol Dimethicone (Proshield Plus Skin Protectant) 1 applic TOP Q8 [facility] Last Admin: 07/06/18 09:39 Dose: 1 applic Enoxaparin Sodium (Lovenox) 30 mg SC DAILY [facility]; Protocol Last Admin: 06/17/18 09:20 Dose: 30 mg Fludrocortisone Acetate (Florinef) 0.1 mg PO DAILY [facility] Last Admin: 07/06/18 09:42 Dose: 0.1 mg Glucagon (Glucagen Diagnostic Kit) 0 mg IM STAT PRN; Protocol PRN Reason: Hypoglycemia Protocol Dexmedetomidine HCl 400 mcg/ (Sodium Chloride) 100 mls @ 2.28 mls/hr IV .Q24H [facility]; Protocol Stop: 07/07/18 12:22 Insulin Human Lispro (Humalog) 0 units SC 0000,0600,1200,1800 [facility]; Protocol Last Admin: 07/06/18 12:00 Dose: Not Given Lamivudine (Epivir) 300 mg PO DAILY [facility]; Protocol Last Admin: 07/06/18 09:42 Dose: 300 mg Methylprednisolone (Solu-Medrol) 20 mg IVP DAILY@0900 [facility] Last Admin: 07/06/18 09:41 Dose: 20 mg Morphine Sulfate (Morphine) 2 mg IVP Q6 PRN PRN Reason: Pain, moderate (4-7) Last Admin: 07/06/18 02:10 Dose: 2 mg Nystatin (Nystop Topical Powder) 1 applic TOP TID [facility] Last Admin: 07/06/18 14:12 Dose: Not Given Ondansetron HCl (Zofran Inj) 4 mg IVP Q4 PRN PRN Reason: Nausea/Vomiting Last Admin: 07/05/18 21:16 Dose: 4 mg Raltegravir (Isentress) 400 mg PO BID [facility]; Protocol Last Admin: 07/06/18 09:44 Dose: 400 mg Tenofovir Disoproxil Fumarate (Viread) 300 mg PO DAILY [facility]; Protocol Last Admin: 07/06/18 09:42 Dose: 300 mg Trimethoprim/Sulfamethoxazole (Sulfatrim Pediatric Susp) 20 ml PO Q6 [facility]; Protocol Last Admin: 07/06/18 09:45 Dose: 20 ml Valganciclovir (Valcyte) 900 mg PO BID [facility] Last Admin: 07/06/18 09:46 Dose: 900 mg - Labs Labs: 07/06/18 05:10 07/06/18 05:10 PT 10.8 Seconds (9.8-13.1) 07/03/18 08:10 INR 1.0 07/03/18 08:10 APTT 25.9 Seconds (25.6-37.1) 07/03/18 08:10 - Constitutional Appears: Chronically Ill - Head Exam Head Exam: NORMAL INSPECTION - Eye Exam Eye Exam: Scleral icterus - ENT Exam ENT Exam: Normal Exam - Neck Exam Additional comments: Tracheostomy - Respiratory Exam Respiratory Exam: Decreased Breath Sounds (at bases) - Cardiovascular Exam Cardiovascular Exam: REGULAR RHYTHM - GI/Abdominal Exam GI & Abdominal Exam: Soft, Normal Bowel Sounds - Exam Additional comments: Yang cath - Extremities Exam Additional comments: Edema UE - Neurological Exam Neurological Exam: Awake Additional comments: Eyes open, not following commands, restless movements with head and extremities. - Skin Skin Exam: Warm Assessment and Plan (1) Respiratory failure Status: Resolved (2) Tracheostomy status Status: Acute (3) Altered mental status Status: Acute (4) HIV (human immunodeficiency virus infection) Status: Acute (5) Fever Status: Resolved (6) Pneumonia Status: Resolved (7) Severe sepsis Status: Resolved (8) Acute renal failure Status: Acute (9) Diabetes mellitus Status: Acute - Assessment and Plan (Free Text) Plan: On CPAP PS, discussed with [employer] trial of Trach Collar. continue Solu- Medrol, HAART and rest of Tx. Critical care time: 32 min.
[2018-07-07 04:33] LABS: ABG ALLEN TEST YES; ARTERIAL BLOOD GAS O2 SAT 99.8 % (95-98); ARTERIAL BLOOD GAS PCO2 40 mm/Hg (35-45); ARTERIAL BLOOD GAS PH 7.52 (7.35-7.45); ARTERIAL BLOOD GAS PO2 115 mm/Hg (80-100); ARTERIAL BLOOD GAS TCO2 33.9 mmol/L (22-28)
[2018-07-07 05:16] LABS: HEMOGLOBIN 8.9 g/dL (12.0-18.0); MEAN CELL VOLUME 86.6 fl (80.0-94.0); MEAN CORPUSCULAR HEMOGLOBIN 28.5 pg (27.0-31.0); MEAN CORPUSCULAR HGB CONC 32.9 g/dL (33.0-37.0); RBC 3.12 Mil/uL (4.40-5.90); RED CELL DISTRIBUTION WIDTH 17.3 % (11.5-14.5); WHITE BLOOD COUNT 4.8 K/uL (4.8-10.8)
[2018-07-07 06:01] LABS: BLOOD UREA NITROGEN 31 mg/dl (9-20); CALCIUM 9.6 mg/dL (8.4-10.2); GFR NON-AFRICAN AMERICAN 55
[2018-07-07] MEDS: Proshield Plus GEL TOP SCH ×2 (09:41→16:53)
[2018-07-07] MEDS: Insulin Lispro (humaLOG) 100 Units/ml Inj SC SCH ×4 (09:42→17:01)
[2018-07-07] MEDS: MethylPREDNISolone 40 mg Vial IVP SCH (09:44)
[2018-07-07] MEDS: Tmp-Smz 200-40mg/5 ml Oral Sus(120 ml) PO SCH ×3 (09:45→21:50)
[2018-07-07 10:34] LABS: % CD4 (T HELPER CELL) 8 Percent (30-61); % CD8 (SUPPRESSOR T CELL) 45 Percent (12-42); ABSOLUTE CD4 CELLS 45 Cells/mcL (490-1740); ABSOLUTE CD8 CELLS 260 Cells/mcL (180-1170); ABSOLUTE LYMPHOCYTES 582 Cells/mcL (850-3900); HELPER/SUPPRESSOR RATIO 0.18 Ratio (0.86-5.00)
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
--- NOTE | 2018-07-07 13:51 | CP.PCM.PN ---
Subjective - Date & Time of Evaluation Date of Evaluation: 07/07/18 Time of Evaluation: 10:00 - Subjective Subjective: Nephrology Consultation Note Assessment: Stable HUGO improving Sepsis Encephalopathy Respiratory failure Hyponatremia HIV/AIDS severe malnutritoon CMV viremia Plan No acute need for renal replacement therapy at this time. . Hypertension control with meds as ordered. Maintain hemodynamics stable. Avoid hypotension. Patient not on ACEI/ARB due to recent HUGO Monitor Input/Output, daily weights and renal function with basic metabolic panel considering d/c florinef pt on haart Dose meds/antibiotics for improved GFR. Avoid nephrotoxins/NSAIDs/ iodinated contrast (unless needed emergently) Glycemic control Further work up for as per primary team Thanks for allowing me to participate in care of your patient. Will follow patient with you. Please call if any Qs. had d/w team Dr Keven Sewell Office: [phone] Subjective: Noted events overnight. Patients not much communicative Physical Examination: General Appearance: Comfortable, in no acute respiratory distress, co-operative . ill appearing and cachexic Vitals reviewed and noted as below Head; Atraumatic, normocephalic ENT: s/p trach Neck; supple no lymphadenopathy, no thyromegaly or bruit Lungs: Normal respiratory rate/effort. Breath sounds bilateral equal and clear anteriorly Heart: Normal rate. s1s2 normal. No rub or gallop. Extremities: no edema. No varicose veins Neurological: Patient is alert, awake and lue weakness Skin: Warm and dry. Normal turgor. No rash. Palpitation: Normal elasticity for age Abdomen: Abdomen is soft. Bowel sounds +. There is no abdominal tenderness, no guarding/rigidity no organomegaly Psych: unable MSK: no joint tenderness or swelling. Digits and nails normal, no deformity : kidney or bladder not palpable Labs/imaging reviewed. Past medical history, past surgical history, family history, social history, allergy reviewed and noted as below Family hx: no hx of CKD. Rest non-contributory Objective - Vital Signs/Intake and Output Vital Signs (last 24 hours): Temp Pulse Resp BP Pulse Ox 98.1 F 92 H 21 149/97 H 100 07/07/18 12:00 07/07/18 12:00 07/07/18 12:00 07/07/18 12:00 07/07/18 12:00 Intake and Output: 07/07/18 07/07/18 06:59 18:59 Output Total 475 Balance -475 - Medications Medications: Current Medications Acetaminophen (Tylenol 325mg Tab) 650 mg PO Q4 PRN PRN Reason: Fever >100.4 F Last Admin: 06/25/18 21:40 Dose: 650 mg Acetaminophen (Tylenol 650 Mg Supp) 650 mg [place] Q6 PRN PRN Reason: Fever >100.4 F Last Admin: 06/20/18 02:30 Dose: 650 mg Acetaminophen (Tylenol 650mg/20.3ml Solution Ud) 650 mg NG Q4 PRN PRN Reason: fever 100.4 or above Dextrose (Dextrose 50% Inj) 0 ml IV STAT PRN; Protocol PRN Reason: Hypoglycemia Protocol Dextrose (Glutose 15) 0 gm PO ONCE PRN; Protocol PRN Reason: Hypoglycemia Protocol Dimethicone (Proshield Plus Skin Protectant) 1 applic TOP Q8 [facility] Last Admin: 07/07/18 09:41 Dose: 1 applic Enoxaparin Sodium (Lovenox) 30 mg SC DAILY [facility]; Protocol Last Admin: 06/17/18 09:20 Dose: 30 mg Fludrocortisone Acetate (Florinef) 0.1 mg PO DAILY [facility] Last Admin: 07/07/18 09:43 Dose: Not Given Glucagon (Glucagen Diagnostic Kit) 0 mg IM STAT PRN; Protocol PRN Reason: Hypoglycemia Protocol Insulin Human Lispro (Humalog) 0 units SC 0000,0600,1200,1800 [facility]; Protocol Last Admin: 07/07/18 12:36 Dose: Not Given Lamivudine (Epivir) 300 mg PO DAILY [facility]; Protocol Last Admin: 07/07/18 09:43 Dose: Not Given Methylprednisolone (Solu-Medrol) 20 mg IVP DAILY@0900 [facility] Last Admin: 07/07/18 09:44 Dose: 20 mg Nystatin (Nystop Topical Powder) 1 applic TOP TID [facility] Last Admin: 07/07/18 09:41 Dose: 1 applic Ondansetron HCl (Zofran Inj) 4 mg IVP Q4 PRN PRN Reason: Nausea/Vomiting Last Admin: 07/05/18 21:16 Dose: 4 mg Raltegravir (Isentress) 400 mg PO BID [facility]; Protocol Last Admin: 03/02/19 09:42 Dose: Not Given Tenofovir Disoproxil Fumarate (Viread) 300 mg PO DAILY [facility]; Protocol Last Admin: 07/07/18 09:45 Dose: Not Given Trimethoprim/Sulfamethoxazole (Sulfatrim Pediatric Susp) 20 ml PO Q6 [facility]; Protocol Last Admin: 07/07/18 09:45 Dose: Not Given Valganciclovir (Valcyte) 900 mg PO BID [facility] Last Admin: 07/07/18 09:45 Dose: Not Given - Labs Labs: 07/07/18 04:40 07/07/18 04:40 PT 10.8 Seconds (9.8-13.1) 07/03/18 08:10 INR 1.0 07/03/18 08:10 APTT 25.9 Seconds (25.6-37.1) 07/03/18 08:10
--- NOTE | 2018-07-07 14:42 | CP.PCM.PN ---
Subjective - Date & Time of Evaluation Date of Evaluation: 07/07/18 Time of Evaluation: 11:50 - Subjective Subjective: F/U Respiratory Failure. Pt with Tracheostomy, trach collar, response to simple questions, at times appear looking around the room. Objective - Vital Signs/Intake and Output Vital Signs (last 24 hours): Temp Pulse Resp BP Pulse Ox 98.1 F 92 H 21 149/97 H 100 07/07/18 12:00 07/07/18 12:00 07/07/18 12:00 07/07/18 12:00 07/07/18 12:00 Intake and Output: 07/07/18 07/07/18 06:59 18:59 Output Total 475 Balance -475 - Medications Medications: Current Medications Acetaminophen (Tylenol 325mg Tab) 650 mg PO Q4 PRN PRN Reason: Fever >100.4 F Last Admin: 06/25/18 21:40 Dose: 650 mg Acetaminophen (Tylenol 650 Mg Supp) 650 mg [place] Q6 PRN PRN Reason: Fever >100.4 F Last Admin: 06/20/18 02:30 Dose: 650 mg Acetaminophen (Tylenol 650mg/20.3ml Solution Ud) 650 mg [place] Q4 PRN PRN Reason: fever 100.4 or above Dextrose (Dextrose 50% Inj) 0 ml IV STAT PRN; Protocol PRN Reason: Hypoglycemia Protocol Dextrose (Glutose 15) 0 gm PO ONCE PRN; Protocol PRN Reason: Hypoglycemia Protocol Dimethicone (Proshield Plus Skin Protectant) 1 applic TOP Q8 [facility] Last Admin: 07/07/18 09:41 Dose: 1 applic Enoxaparin Sodium (Lovenox) 30 mg SC DAILY [facility]; Protocol Last Admin: 06/17/18 09:20 Dose: 30 mg Fludrocortisone Acetate (Florinef) 0.1 mg PO DAILY [facility] Last Admin: 07/07/18 09:43 Dose: Not Given Glucagon (Glucagen Diagnostic Kit) 0 mg IM STAT PRN; Protocol PRN Reason: Hypoglycemia Protocol Insulin Human Lispro (Humalog) 0 units SC 0000,0600,1200,1800 [facility]; Protocol Last Admin: 07/07/18 12:36 Dose: Not Given Lamivudine (Epivir) 300 mg PO DAILY [facility]; Protocol Last Admin: 07/07/18 09:43 Dose: Not Given Methylprednisolone (Solu-Medrol) 20 mg IVP DAILY@0900 [facility] Last Admin: 07/07/18 09:44 Dose: 20 mg Nystatin (Nystop Topical Powder) 1 applic TOP TID [facility] Last Admin: 07/07/18 09:41 Dose: 1 applic Ondansetron HCl (Zofran Inj) 4 mg IVP Q4 PRN PRN Reason: Nausea/Vomiting Last Admin: 07/05/18 21:16 Dose: 4 mg Raltegravir (Isentress) 400 mg PO BID [facility]; Protocol Last Admin: 07/07/18 09:42 Dose: Not Given Tenofovir Disoproxil Fumarate (Viread) 300 mg PO DAILY [facility]; Protocol Last Admin: 07/07/18 09:45 Dose: Not Given Trimethoprim/Sulfamethoxazole (Sulfatrim Pediatric Susp) 20 ml PO Q6 [facility]; Protocol Last Admin: 07/07/18 09:45 Dose: Not Given Valganciclovir (Valcyte) 900 mg PO BID [facility] Last Admin: 07/07/18 09:45 Dose: Not Given - Labs Labs: 07/07/18 04:40 07/07/18 04:40 PT 10.8 Seconds (9.8-13.1) 07/03/18 08:10 INR 1.0 07/03/18 08:10 APTT 25.9 Seconds (25.6-37.1) 07/03/18 08:10 - Constitutional Appears: Chronically Ill - Head Exam Head Exam: NORMAL INSPECTION - Eye Exam Eye Exam: PERRL - ENT Exam ENT Exam: Normal Exam - Neck Exam Additional comments: Tracheostomy, Thrack collar - Respiratory Exam Respiratory Exam: Decreased Breath Sounds (at bases) - Cardiovascular Exam Cardiovascular Exam: REGULAR RHYTHM - GI/Abdominal Exam GI & Abdominal Exam: Soft, Normal Bowel Sounds - Exam Additional comments: Yang cath - Extremities Exam Additional comments: Edema - Neurological Exam Neurological Exam: Awake Additional comments: Confused, more alert, able to follows simple commands, mild restless movements with head and extremities, - Skin Skin Exam: Warm Assessment and Plan (1) Respiratory failure Status: Resolved (2) Tracheostomy status Status: Acute (3) Altered mental status Status: Acute (4) HIV (human immunodeficiency virus infection) Status: Acute (5) Fever Status: Resolved (6) Pneumonia Status: Resolved (7) Severe sepsis Status: Resolved (8) Acute renal failure Status: Acute (9) Diabetes mellitus Status: Acute - Assessment and Plan (Free Text) Plan: Pt tolerating well trach collar, on HAART, Solumedrol, f/u CXR on Monday, to have swallow eval on Monday. Critical care time: 31 min.
--- NOTE | 2018-07-07 14:43 | CP.PCM.PN ---
Objective - Vital Signs/Intake and Output Vital Signs (last 24 hours): Temp Pulse Resp BP Pulse Ox 98.1 F 92 H 21 149/97 H 100 07/07/18 12:00 07/07/18 12:00 07/07/18 12:00 07/07/18 12:00 07/07/18 12:00 Intake and Output: 07/07/18 07/07/18 06:59 18:59 Output Total 475 Balance -475 - Medications Medications: Current Medications Acetaminophen (Tylenol 325mg Tab) 650 mg PO Q4 PRN PRN Reason: Fever >100.4 F Last Admin: 06/25/18 21:40 Dose: 650 mg Acetaminophen (Tylenol 650 Mg Supp) 650 mg SD Q6 PRN PRN Reason: Fever >100.4 F Last Admin: 06/20/18 02:30 Dose: 650 mg Acetaminophen (Tylenol 650mg/20.3ml Solution Ud) 650 mg NG Q4 PRN PRN Reason: fever 100.4 or above Dextrose (Dextrose 50% Inj) 0 ml IV STAT PRN; Protocol PRN Reason: Hypoglycemia Protocol Dextrose (Glutose 15) 0 gm PO ONCE PRN; Protocol PRN Reason: Hypoglycemia Protocol Dimethicone (Proshield Plus Skin Protectant) 1 applic TOP Q8 [facility] Last Admin: 07/07/18 09:41 Dose: 1 applic Enoxaparin Sodium (Lovenox) 30 mg SC DAILY [facility]; Protocol Last Admin: 06/17/18 09:20 Dose: 30 mg Fludrocortisone Acetate (Florinef) 0.1 mg PO DAILY [facility] Last Admin: 07/07/18 09:43 Dose: Not Given Glucagon (Glucagen Diagnostic Kit) 0 mg IM STAT PRN; Protocol PRN Reason: Hypoglycemia Protocol Insulin Human Lispro (Humalog) 0 units SC 0000,0600,1200,1800 [facility]; Protocol Last Admin: 07/07/18 12:36 Dose: Not Given Lamivudine (Epivir) 300 mg PO DAILY [facility]; Protocol Last Admin: 07/07/18 09:43 Dose: Not Given Methylprednisolone (Solu-Medrol) 20 mg IVP DAILY@0900 [facility] Last Admin: 07/07/18 09:44 Dose: 20 mg Nystatin (Nystop Topical Powder) 1 applic TOP TID [facility] Last Admin: 07/07/18 09:41 Dose: 1 applic Ondansetron HCl (Zofran Inj) 4 mg IVP Q4 PRN PRN Reason: Nausea/Vomiting Last Admin: 07/05/18 21:16 Dose: 4 mg Raltegravir (Isentress) 400 mg PO BID [facility]; Protocol Last Admin: 07/07/18 09:42 Dose: Not Given Tenofovir Disoproxil Fumarate (Viread) 300 mg PO DAILY [facility]; Protocol Last Admin: 07/07/18 09:45 Dose: Not Given Trimethoprim/Sulfamethoxazole (Sulfatrim Pediatric Susp) 20 ml PO Q6 [facility]; Protocol Last Admin: 07/07/18 09:45 Dose: Not Given Valganciclovir (Valcyte) 900 mg PO BID [facility] Last Admin: 07/07/18 09:45 Dose: Not Given - Labs Labs: 07/07/18 04:40 07/07/18 04:40 PT 10.8 Seconds (9.8-13.1) 07/03/18 08:10 INR 1.0 07/03/18 08:10 APTT 25.9 Seconds (25.6-37.1) 07/03/18 08:10 Assessment and Plan (1) Respiratory failure Status: Acute (2) Altered mental status Status: Acute (3) HIV (human immunodeficiency virus infection) Status: Acute (4) Fever Status: Acute (5) Pneumonia Status: Acute (6) Severe sepsis Status: Acute (7) Acute renal failure Status: Acute (8) Diabetes mellitus Status: Acute
[2018-07-07] MEDS: Dextrose 5%/0.9% NS 1,000 ML IV SCH (18:17)
[2018-07-08] MEDS: Proshield Plus GEL TOP SCH ×4 (00:17→17:12)
[2018-07-08] MEDS: Insulin Lispro (humaLOG) 100 Units/ml Inj SC SCH ×4 (00:18→17:09)
[2018-07-08] MEDS: Tmp-Smz 200-40mg/5 ml Oral Sus(120 ml) PO SCH ×4 (05:28→17:13)
[2018-07-08] MEDS: Dextrose 5%/0.9% NS 1,000 ML IV SCH ×2 (05:29→11:43)
[2018-07-08 05:55] LABS: HEMOGLOBIN 6.9 g/dL (12.0-18.0); MEAN CELL VOLUME 90.6 fl (80.0-94.0); MEAN CORPUSCULAR HEMOGLOBIN 28.5 pg (27.0-31.0); MEAN CORPUSCULAR HGB CONC 31.4 g/dL (33.0-37.0); RBC 2.44 Mil/uL (4.40-5.90); RED CELL DISTRIBUTION WIDTH 18.3 % (11.5-14.5); WHITE BLOOD COUNT 3.9 K/uL (4.8-10.8)
[2018-07-08 07:40] LABS: ALB/GLOB RATIO 0.9 (1.0-2.1); ALBUMIN 3.1 g/dL (3.5-5.0); ALT/SGPT 33 U/L (21-72); AST/SGOT 33 U/L (17-59); BLOOD UREA NITROGEN 33 mg/dl (9-20); CALCIUM 9.2 mg/dL (8.4-10.2); GFR NON-AFRICAN AMERICAN > 60
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
[2018-07-08] MEDS: MethylPREDNISolone 40 mg Vial IVP SCH (09:02)
--- NOTE | 2018-07-08 12:12 | CP.PCM.PN ---
Subjective - Date & Time of Evaluation Date of Evaluation: 07/08/18 Time of Evaluation: 08:00 - Subjective Subjective: events noted more responsive OOB to chair alert moving all 4 Objective - Vital Signs/Intake and Output Vital Signs (last 24 hours): Temp Pulse Resp BP Pulse Ox 97.3 F L 77 28 H 159/92 H 100 07/08/18 08:00 07/08/18 10:00 07/08/18 10:00 07/08/18 10:00 07/08/18 10:00 Intake and Output: 07/08/18 07/08/18 06:59 18:59 Intake Total 1550 Output Total 400 Balance 1150 - Medications Medications: Current Medications Acetaminophen (Tylenol 325mg Tab) 650 mg PO Q4 PRN PRN Reason: Fever >100.4 F Last Admin: 06/25/18 21:40 Dose: 650 mg Acetaminophen (Tylenol 650 Mg Supp) 650 mg DC Q6 PRN PRN Reason: Fever >100.4 F Last Admin: 06/20/18 02:30 Dose: 650 mg Acetaminophen (Tylenol 650mg/20.3ml Solution Ud) 650 mg NG Q4 PRN PRN Reason: fever 100.4 or above Amlodipine Besylate (Norvasc) 5 mg PO DAILY [facility] Last Admin: 07/08/18 09:35 Dose: 5 mg Dextrose (Dextrose 50% Inj) 0 ml IV STAT PRN; Protocol PRN Reason: Hypoglycemia Protocol Dextrose (Glutose 15) 0 gm PO ONCE PRN; Protocol PRN Reason: Hypoglycemia Protocol Dimethicone (Proshield Plus Skin Protectant) 1 applic TOP Q8 [facility] Last Admin: 07/08/18 09:02 Dose: 1 applic Enoxaparin Sodium (Lovenox) 30 mg SC DAILY [facility]; Protocol Last Admin: 06/17/18 09:20 Dose: 30 mg Glucagon (Glucagen Diagnostic Kit) 0 mg IM STAT PRN; Protocol PRN Reason: Hypoglycemia Protocol Dextrose/Sodium Chloride (Dextrose 5%/0.9% Ns 1000 Ml) 1,000 mls @ 125 mls/hr IV .Q8H [facility] Stop: 07/08/18 18:07 Last Admin: 07/08/18 11:43 Dose: 125 mls/hr Insulin Human Lispro (Humalog) 0 units SC 0000,0600,1200,1800 [facility]; Protocol Last Admin: 07/08/18 11:43 Dose: 1 units Lamivudine (Epivir) 300 mg PO DAILY [facility]; Protocol Last Admin: 07/08/18 09:29 Dose: 300 mg Methylprednisolone (Solu-Medrol) 20 mg IVP DAILY@0900 [facility] Last Admin: 07/08/18 09:02 Dose: 20 mg Nystatin (Nystop Topical Powder) 1 applic TOP TID [facility] Last Admin: 07/08/18 09:00 Dose: 1 applic Ondansetron HCl (Zofran Inj) 4 mg IVP Q4 PRN PRN Reason: Nausea/Vomiting Last Admin: 07/05/18 21:16 Dose: 4 mg Tenofovir Disoproxil Fumarate (Viread) 300 mg PO DAILY [facility]; Protocol Last Admin: 07/08/18 09:31 Dose: 300 mg Trimethoprim/Sulfamethoxazole (Sulfatrim Pediatric Susp) 20 ml PO Q6 [facility]; Protocol Last Admin: 07/08/18 09:33 Dose: 20 ml Valganciclovir (Valcyte) 900 mg PO BID [facility] Last Admin: 07/08/18 09:31 Dose: 900 mg - Labs Labs: 07/08/18 05:40 07/08/18 05:40 PT 10.8 Seconds (9.8-13.1) 07/03/18 08:10 INR 1.0 07/03/18 08:10 APTT 25.9 Seconds (25.6-37.1) 07/03/18 08:10 - Constitutional Appears: Confused, Cachectic, Chronically Ill - Head Exam Head Exam: NORMOCEPHALIC - Eye Exam Eye Exam: absent: Scleral icterus - ENT Exam ENT Exam: Mucous Membranes Dry Additional comments: trach + - Neck Exam Neck Exam: absent: Lymphadenopathy - Respiratory Exam Respiratory Exam: Decreased Breath Sounds - Cardiovascular Exam Cardiovascular Exam: REGULAR RHYTHM - GI/Abdominal Exam GI & Abdominal Exam: Distended - Rectal Exam Rectal Exam: Deferred - Exam Exam: NORMAL INSPECTION - Extremities Exam Extremities Exam: absent: Pedal Edema - Back Exam Back Exam: absent: CVA tenderness (L), CVA tenderness (R) - Neurological Exam Neurological Exam: Altered - Psychiatric Exam Psychiatric exam: Depressed - Skin Skin Exam: Dry Assessment and Plan (1) Acute renal failure Status: Acute (2) Altered mental status Status: Acute (3) Diabetes mellitus Status: Acute (4) HIV (human immunodeficiency virus infection) Status: Acute (5) Pneumonia Status: Acute (6) Encephalopathy Status: Acute (7) CMV (cytomegalovirus) infection Status: Acute - Assessment and Plan (Free Text) 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
--- NOTE | 2018-07-08 12:26 | CP.PCM.PN ---
Subjective - Date & Time of Evaluation Date of Evaluation: 07/08/18 Time of Evaluation: 12:25 - Subjective Subjective: Nephrology Consultation Note Assessment: Stable HUGO improving Sepsis Encephalopathy Respiratory failure Hyponatremia HIV/AIDS severe malnutritoon CMV viremia Plan No acute need for renal replacement therapy at this time. Hypertension control with meds as ordered. Maintain hemodynamics stable. Avoid hypotension. Patient not on ACEI/ARB due to recent HUGO Monitor Input/Output, daily weights and renal function with basic metabolic panel pt off orinef pt on haart PRBC as needed Dose meds/antibiotics for improved GFR. Avoid nephrotoxins/NSAIDs/ iodinated contrast (unless needed emergently) Glycemic control Further work up for as per primary team Thanks for allowing me to participate in care of your patient. Will follow truong ent with you. Please call if any Qs. had d/w team Dr Keven Sewell Office: [phone] Subjective: Noted events overnight. Patients not much communicative Physical Examination: General Appearance: Comfortable, in no acute respiratory distress, co-operative . ill appearing and cachexic Vitals reviewed and noted as below Head; Atraumatic, normocephalic ENT: s/p trach Neck; supple no lymphadenopathy, no thyromegaly or bruit Lungs: Normal respiratory rate/effort. Breath sounds bilateral equal and clear anteriorly Heart: Normal rate. s1s2 normal. No rub or gallop. Extremities: no edema. No varicose veins Neurological: Patient is alert, awake and lue weakness Skin: Warm and dry. Normal turgor. No rash. Palpitation: Normal elasticity for age Abdomen: Abdomen is soft. Bowel sounds +. There is no abdominal tenderness, no guarding/rigidity no organomegaly Psych: unable MSK: no joint tenderness or swelling. Digits and nails normal, no deformity : kidney or bladder not palpable Labs/imaging reviewed. Past medical history, past surgical history, family history, social history, allergy reviewed and noted as below Family hx: no hx of CKD. Rest non-contributory Objective - Vital Signs/Intake and Output Vital Signs (last 24 hours): Temp Pulse Resp BP Pulse Ox 97.9 F 82 24 148/91 H 100 07/08/18 12:00 07/08/18 12:07/08/18 12:00 07/08/18 12:07/08/18 12:00 Intake and Output: 07/08/18 07/08/18 06:59 18:59 Intake Total 1550 Output Total 400 Balance 1150 - Medications Medications: Current Medications Acetaminophen (Tylenol 325mg Tab) 650 mg PO Q4 PRN PRN Reason: Fever >100.4 F Last Admin: 06/25/18 21:40 Dose: 650 mg Acetaminophen (Tylenol 650 Mg Supp) 650 mg [place] Q6 PRN PRN Reason: Fever >100.4 F Last Admin: 06/20/18 02:30 Dose: 650 mg Acetaminophen (Tylenol 650mg/20.3ml Solution Ud) 650 mg NG Q4 PRN PRN Reason: fever 100.4 or above Amlodipine Besylate (Norvasc) 5 mg PO DAILY [facility] Last Admin: 07/08/18 09:35 Dose: 5 mg Dextrose (Dextrose 50% Inj) 0 ml IV STAT PRN; Protocol PRN Reason: Hypoglycemia Protocol Dextrose (Glutose 15) 0 gm PO ONCE PRN; Protocol PRN Reason: Hypoglycemia Protocol Dimethicone (Proshield Plus Skin Protectant) 1 applic TOP Q8 [facility] Last Admin: 07/08/18 09:02 Dose: 1 applic Enoxaparin Sodium (Lovenox) 30 mg SC DAILY [facility]; Protocol Last Admin: 06/17/18 09:20 Dose: 30 mg Glucagon (Glucagen Diagnostic Kit) 0 mg IM STAT PRN; Protocol PRN Reason: Hypoglycemia Protocol Dextrose/Sodium Chloride (Dextrose 5%/0.9% Ns 1000 Ml) 1,000 mls @ 125 mls/hr IV .Q8H [facility] Stop: 07/08/18 18:07 Last Admin: 07/08/18 11:43 Dose: 125 mls/hr Insulin Human Lispro (Humalog) 0 units SC 0000,0600,1200,1800 [facility]; Protocol Last Admin: 07/08/18 11:43 Dose: 1 units Lamivudine (Epivir) 300 mg PO DAILY [facility]; Protocol Last Admin: 07/08/18 09:29 Dose: 300 mg Methylprednisolone (Solu-Medrol) 20 mg IVP DAILY@0900 [facility] Last Admin: 07/08/18 09:02 Dose: 20 mg Nystatin (Nystop Topical Powder) 1 applic TOP TID [facility] Last Admin: 07/08/18 09:00 Dose: 1 applic Ondansetron HCl (Zofran Inj) 4 mg IVP Q4 PRN PRN Reason: Nausea/Vomiting Last Admin: 07/05/18 21:16 Dose: 4 mg Tenofovir Disoproxil Fumarate (Viread) 300 mg PO DAILY [facility]; Protocol Last Admin: 07/08/18 09:31 Dose: 300 mg Trimethoprim/Sulfamethoxazole (Sulfatrim Pediatric Susp) 20 ml PO Q6 [facility]; Protocol Last Admin: 07/08/18 09:33 Dose: 20 ml Valganciclovir (Valcyte) 900 mg PO BID [facility] Last Admin: 07/08/18 09:31 Dose: 900 mg - Labs Labs: 07/08/18 05:40 07/08/18 05:40 PT 10.8 Seconds (9.8-13.1) 07/03/18 08:10 INR 1.0 07/03/18 08:10 APTT 25.9 Seconds (25.6-37.1) 07/03/18 08:10
[2018-07-08 14:45] LABS: ABG ALLEN TEST YES; ARTERIAL BLOOD GAS HCO3 29.8 mmol/L (21-28); ARTERIAL BLOOD GAS HEMOGLOBIN 8.8 g/dL (11.7-17.4); ARTERIAL BLOOD GAS O2 CAPACITY 12.2 mL/dL (16-24); ARTERIAL BLOOD GAS O2 CONTENT 12.2 ML/dL (15-23); ARTERIAL BLOOD GAS O2 SAT 99.9 % (95-98); ARTERIAL BLOOD GAS PCO2 36 mm/Hg (35-45); ARTERIAL BLOOD GAS PH 7.52 (7.35-7.45); ARTERIAL BLOOD GAS PO2 126 mm/Hg (80-100); ARTERIAL BLOOD GAS TCO2 30.5 mmol/L (22-28)
--- NOTE | 2018-07-08 14:52 | CP.PCM.PN ---
Subjective - Date & Time of Evaluation Date of Evaluation: 07/08/18 Time of Evaluation: 14:50 - Subjective Subjective: F/U Respiratory Failure. Pt Ox2, seating in a chair, mouthing words like good morning, expontaneously breathing on O2 via collar. Objective - Vital Signs/Intake and Output Vital Signs (last 24 hours): Temp Pulse Resp BP Pulse Ox 97.9 F 82 24 148/91 H 100 07/08/18 12:00 07/08/18 12:00 07/08/18 12:00 07/08/18 12:00 07/08/18 12:00 Intake and Output: 07/08/18 07/08/18 06:59 18:59 Intake Total 1550 Output Total 400 Balance 1150 - Medications Medications: Current Medications Acetaminophen (Tylenol 325mg Tab) 650 mg PO Q4 PRN PRN Reason: Fever >100.4 F Last Admin: 06/25/18 21:40 Dose: 650 mg Acetaminophen (Tylenol 650 Mg Supp) 650 mg [place] Q6 PRN PRN Reason: Fever >100.4 F Last Admin: 06/20/18 02:30 Dose: 650 mg Acetaminophen (Tylenol 650mg/20.3ml Solution Ud) 650 mg NG Q4 PRN PRN Reason: fever 100.4 or above Amlodipine Besylate (Norvasc) 5 mg PO DAILY [facility] Last Admin: 07/08/18 09:35 Dose: 5 mg Dextrose (Dextrose 50% Inj) 0 ml IV STAT PRN; Protocol PRN Reason: Hypoglycemia Protocol Dextrose (Glutose 15) 0 gm PO ONCE PRN; Protocol PRN Reason: Hypoglycemia Protocol Dimethicone (Proshield Plus Skin Protectant) 1 applic TOP Q8 [facility] Last Admin: 07/08/18 09:02 Dose: 1 applic Enoxaparin Sodium (Lovenox) 30 mg SC DAILY [facility]; Protocol Last Admin: 06/17/18 09:20 Dose: 30 mg Glucagon (Glucagen Diagnostic Kit) 0 mg IM STAT PRN; Protocol PRN Reason: Hypoglycemia Protocol Dextrose/Sodium Chloride (Dextrose 5%/0.9% Ns 1000 Ml) 1,000 mls @ 125 mls/hr IV .Q8H [facility] Stop: 07/08/18 18:07 Last Admin: 07/08/18 11:43 Dose: 125 mls/hr Insulin Human Lispro (Humalog) 0 units SC 0000,0600,1200,1800 [facility]; Protocol Last Admin: 07/08/18 11:43 Dose: 1 units Lamivudine (Epivir) 300 mg PO DAILY [facility]; Protocol Last Admin: 07/08/18 09:29 Dose: 300 mg Methylprednisolone (Medrol) 8 mg PO DAILY [facility] Nystatin (Nystop Topical Powder) 1 applic TOP TID [facility] Last Admin: 07/08/18 09:00 Dose: 1 applic Ondansetron HCl (Zofran Inj) 4 mg IVP Q4 PRN PRN Reason: Nausea/Vomiting Last Admin: 07/05/18 21:16 Dose: 4 mg Tenofovir Disoproxil Fumarate (Viread) 300 mg PO DAILY [facility]; Protocol Last Admin: 07/08/18 09:31 Dose: 300 mg Trimethoprim/Sulfamethoxazole (Sulfatrim Pediatric Susp) 20 ml PO Q6 [facility]; Protocol Last Admin: 07/08/18 09:33 Dose: 20 ml Valganciclovir (Valcyte) 900 mg PO BID [facility] Last Admin: 07/08/18 09:31 Dose: 900 mg - Labs Labs: 07/08/18 05:40 07/08/18 05:40 PT 10.8 Seconds (9.8-13.1) 07/03/18 08:10 INR 1.0 07/03/18 08:10 APTT 25.9 Seconds (25.6-37.1) 07/03/18 08:10 - Constitutional Appears: Chronically Ill - Head Exam Head Exam: NORMAL INSPECTION - Eye Exam Eye Exam: PERRL - ENT Exam ENT Exam: Normal Exam - Neck Exam Additional comments: Tracheostomy. Trach collar. - Respiratory Exam Respiratory Exam: Decreased Breath Sounds (at bases) - Cardiovascular Exam Cardiovascular Exam: REGULAR RHYTHM - GI/Abdominal Exam GI & Abdominal Exam: Soft, Normal Bowel Sounds - Extremities Exam Additional comments: Edema - Neurological Exam Neurological Exam: Alert, Awake Additional comments: Pt Ox2, able to follow simple commands, mouthing words, moving extremities on commands, - Psychiatric Exam Psychiatric exam: Normal Mood - Skin Skin Exam: Warm Assessment and Plan (1) Respiratory failure Status: Resolved (2) Tracheostomy status Status: Acute (3) Altered mental status Status: Acute (4) HIV (human immunodeficiency virus infection) Status: Acute (5) Fever Status: Resolved (6) Pneumonia Status: Resolved (7) Severe sepsis Status: Resolved (8) Acute renal failure Status: Acute (9) Diabetes mellitus Status: Acute - Assessment and Plan (Free Text) Plan: Continue trach collar, on HAART, f/u CXR, swallow eval Critical care time: 33 min.
[2018-07-08] MEDS ORDERED: Dextrose 5%/0.9% NS 1,000 ML IV SCH (21:15)
[2018-07-09] MEDS: Insulin Lispro (humaLOG) 100 Units/ml Inj SC SCH ×4 (00:18→18:16)
[2018-07-09] MEDS: Proshield Plus GEL TOP SCH ×3 (01:49→17:02)
[2018-07-09 05:35] LABS: HEMOGLOBIN 8.5 g/dL (12.0-18.0); MEAN CELL VOLUME 87.3 fl (80.0-94.0); MEAN CORPUSCULAR HEMOGLOBIN 28.5 pg (27.0-31.0); MEAN CORPUSCULAR HGB CONC 32.6 g/dL (33.0-37.0); RBC 2.98 Mil/uL (4.40-5.90); RED CELL DISTRIBUTION WIDTH 20.2 % (11.5-14.5); WHITE BLOOD COUNT 4.7 K/uL (4.8-10.8)
[2018-07-09 05:52] LABS: ALB/GLOB RATIO 0.9 (1.0-2.1); ALT/SGPT 40 U/L (21-72); AST/SGOT 32 U/L (17-59); BLOOD UREA NITROGEN 26 mg/dl (9-20); CALCIUM 9.1 mg/dL (8.4-10.2); GFR NON-AFRICAN AMERICAN > 60
[2018-07-09] MEDS ORDERED: ALTEPLASE IV ONE (09:24)
[2018-07-09] MEDS ORDERED: SODIUM CHLORIDE 0.9% IV ONE (09:24)
--- NOTE | 2018-07-09 09:50 | CP.PCM.PN ---
Subjective - Date & Time of Evaluation Date of Evaluation: 07/09/18 Time of Evaluation: 09:49 - Subjective Subjective: More awake in bed and sitting up Vital signs noted to be stable Objective - Vital Signs/Intake and Output Vital Signs (last 24 hours): Temp Pulse Resp BP Pulse Ox 97.3 F L 81 27 H 160/96 H 100 07/09/18 07:46 07/09/18 08:43 07/09/18 07:46 07/09/18 08:43 07/09/18 07:46 Intake and Output: 07/09/18 07/09/18 06:59 18:59 Intake Total 575 Output Total 100 Balance 475 - Medications Medications: Current Medications Acetaminophen (Tylenol 325mg Tab) 650 mg PO Q4 PRN PRN Reason: Fever >100.4 F Last Admin: 06/25/18 21:40 Dose: 650 mg Acetaminophen (Tylenol 650 Mg Supp) 650 mg [place] Q6 PRN PRN Reason: Fever >100.4 F Last Admin: 06/20/18 02:30 Dose: 650 mg Alteplase, Recombinant (Cathflo 2 Mg Inj) 2 mg IV ONCE ONE Stop: 07/09/18 10:01 Amlodipine Besylate (Norvasc) 5 mg PO DAILY [facility] Last Admin: 07/09/18 08:38 Dose: 5 mg Dextrose (Dextrose 50% Inj) 0 ml IV STAT PRN; Protocol PRN Reason: Hypoglycemia Protocol Dextrose (Glutose 15) 0 gm PO ONCE PRN; Protocol PRN Reason: Hypoglycemia Protocol Dimethicone (Proshield Plus Skin Protectant) 1 applic TOP Q8 [facility] Last Admin: 07/09/18 01:49 Dose: 1 applic Enoxaparin Sodium (Lovenox) 30 mg SC DAILY [facility]; Protocol Last Admin: 06/17/18 09:20 Dose: 30 mg Glucagon (Glucagen Diagnostic Kit) 0 mg IM STAT PRN; Protocol PRN Reason: Hypoglycemia Protocol Dextrose/Sodium Chloride (Dextrose 5%/0.9% Ns 1000 Ml) 1,000 mls @ 75 mls/hr IV .[id number] [facility] Stop: 07/09/18 10:34 Last Admin: 07/08/18 21:30 Dose: 75 mls/hr Insulin Human Lispro (Humalog) 0 units SC 0000,0600,1200,1800 [facility]; Protocol Last Admin: 07/09/18 06:40 Dose: Not Given Lamivudine (Epivir) 300 mg PO DAILY [facility]; Protocol Last Admin: 07/09/18 08:37 Dose: 300 mg Methylprednisolone (Medrol) 8 mg PO DAILY [facility] Last Admin: 07/09/18 08:38 Dose: 8 mg Nystatin (Nystop Topical Powder) 1 applic TOP TID [facility] Last Admin: 07/09/18 08:39 Dose: 1 applic Ondansetron HCl (Zofran Inj) 4 mg IVP Q4 PRN PRN Reason: Nausea/Vomiting Last Admin: 07/05/18 21:16 Dose: 4 mg Tenofovir Disoproxil Fumarate (Viread) 300 mg PO DAILY [facility]; Protocol Last Admin: 07/09/18 08:40 Dose: 300 mg Trimethoprim/Sulfamethoxazole (Sulfatrim Pediatric Susp) 20 ml PO Q24H [facility]; Protocol Last Admin: 07/08/18 17:13 Dose: 20 ml Valganciclovir (Valcyte) 900 mg PO BID [facility] Last Admin: 07/09/18 08:39 Dose: 900 mg - Labs Labs: 07/09/18 04:30 07/09/18 04:30 PT 10.8 Seconds (9.8-13.1) 07/03/18 08:10 INR 1.0 07/03/18 08:10 APTT 25.9 Seconds (25.6-37.1) 07/03/18 08:10 - Eye Exam Eye Exam: absent: Conjunctival injection - ENT Exam ENT Exam: Mucous Membranes Moist - Respiratory Exam Respiratory Exam: NORMAL BREATHING PATTERN. absent: Chest Wall Tenderness - Cardiovascular Exam Cardiovascular Exam: absent: Gallop, JVD - GI/Abdominal Exam GI & Abdominal Exam: Soft, Normal Bowel Sounds - Extremities Exam Extremities Exam: absent: Calf Tenderness - Back Exam Back Exam: absent: CVA tenderness (L), CVA tenderness (R) - Neurological Exam Neurological Exam: Awake - Skin Skin Exam: absent: Cyanosis Assessment and Plan (1) Acute renal failure Assessment & Plan: HUGO improving Sepsis Encephalopathy Respiratory failure Hyponatremia corrected HIV/AIDS severe malnutritoon CMV viremia Recommendation Hyponatremia corrected Acute kidney injury recovering Patient sitting up in bed and more awake Antibiotics as per primary team Status: Acute (2) HIV (human immunodeficiency virus infection) Status: Acute
[2018-07-09] MEDS ORDERED: Sterile Water 10 ML IV ONE (14:22)
--- NOTE | 2018-07-09 15:35 | CP.CCUPN ---
CCU Subjective - Physician Review Subjective (Free Text): 07/09/18 The patient was Seen and examined by me at the bedside, Medical records reviewed and Management issues were discussed and formulated with the house staff. Events reviewed Mr Henry is a 67 Years old Male with unknown PMHx on admission who arrived to Emergency department on 06/11 via EMS after wellness check demonstrated unsuitable living conditions, with patient confused and unkempt. In ED, patient poor historian, but notes dizziness and denies falls, trauma, focal weakness or pain Given oral thrush on admission, rapid HIV was done in the ER and was positive EKG: Sinus Tachycardia. Head CT: No acute intracranial abnormality, mod volume loss. He was admitted to the Telemetry with diagnosis acute renal failure, hypokalemia, azotemia with delirium Patient was transferred to ICU on 06/13 after ANIMAL HUSBANDMAN was called on the floor for Hypotension most likely secondary to volume depletion and severe dehydration Patient was admitted to ICU with diagnosis HUGO most likely prerenal, Altered mental status, severe sepsis from Pneumonia possibly PCP All in the sitting of newly diagnosed HIV (untreated with very very low CD4 count) He was awake, but confused, intermittently follows some commands ICU course noted for worsening mental status, he was found to Combative, Inappropriate, Restless Patient was intubated 06/15/18 for worsening mental status and hypoxemia 028/11, Patient placed on Right Lateral Decubitius, and spinal tap was done by anesthesia, He tolerated the procedure well Consent was obtained over the phone from appointed uncle (by the patient mother in [place]) The CSF fluid was sent for chemistry, cell count, with mild virus, AFB, cryptococcal serology, glucose, protein and bacterial culture Opening pressure 32, Fluid Clear CSF renee ink and cultures negative Subsequently he was started on HAART Bronchoscopy was postponed due to thew need for need negative pressure isolation Initially was empirically covered with meningitis, All spinal Tap results negative so far and Patient was taken off droplet isolation Three sputum for AFB was sent, all negative and he was taken off airborne isolation PPD was negative likely in the setting of severe immune suppression Patient was successfully extubated Patient doing well on trach colar, Adequate saturations Currently Comfortable, NAD Hemodynamically improved No Vasopressors Afebrile, NSR on the monitor Last 24H I&O 1635/100 This morning labs revealed no Leucocytosis, Stable H/H 10.6/32.9, improving renal function BUN/Cr down to 26/1.1 Patient is Stable for transfer out of ICU CCU Objective - Vital Signs / Intake & Output Vital Signs (Last 4 hours): Vital Signs Temp Pulse Resp BP Pulse Ox 07/09/18 14:00 78 22 137/92 H 100 07/09/18 12:00 98.6 F 86 31 H 174/72 H 100 Intake and Output (Last 8hrs): Intake & Output 07/09/18 07/09/18 07/09/18 06:59 14:59 22:59 Intake Total 75 Output Total 100 200 Balance -25 -200 Weight 94 lb 4.8 oz Intake: IV 75 Output: Urine 100 200 Condom 100 200 Other: # Bowel Movements 1 - Physical Exam Physical Exam Limitations: Positive for: Clinical Condition Head: Positive for: Atraumatic, Normocephalic Pupils: Positive for: PERRL Extroacular Muscles: Positive for: EOMI Conjunctiva: Positive for: Normal. Negative for: Injected, Icteric Mouth: Positive for: Moist Mucous Membranes. Negative for: Dry, Drooling Pharnyx: Positive for: Normal Nose (Internal): Positive for: Normal Inspection Neck: Positive for: Normal Range of Motion, Trachea Midline. Negative for: Meningeal Signs, MIDLINE TENDERNESS, Paraspinal Tenderness, JVD, Lymphadenopathy, Bruit, Other Respiratory/Chest: Positive for: Good Air Exchange, Decreased Breath Sounds, Rales, Rhonchi. Negative for: Respiratory Distress, Accessory Muscle Use, Tachypneic, Tender to Palpation Cardiovascular: Positive for: Regular Rate and Rhythm, Normal S1, S2, Peripheal Pulses Present. Negative for: Murmurs, Irregular Rhythm, Tachycardic, Bradycardic Abdomen: Positive for: Normal Bowel Sounds. Negative for: Tenderness, Distention Upper Extremity: Positive for: Normal Inspection Lower Extremity: Positive for: Normal Inspection Neurological: Positive for: Motor Func Grossly Intact Psychiatric: Positive for: Alert, Oriented x 3, Other (orally intubated) - Medications Active Medications: Active Medications Generic Name Dose Route Start Last Admin Trade Name Freq PRN Reason Stop Dose Admin Acetaminophen 650 mg 06/13/18 05:17 06/25/18 21:40 Tylenol 325mg Tab PO 650 mg Q4 PRN Administration Fever >100.4 F Acetaminophen 650 mg 06/20/18 02:30 06/20/18 02:30 Tylenol 650 Mg Supp ME 650 mg Q6 PRN Administration Fever >100.4 F Amlodipine Besylate 5 mg 07/08/18 09:00 07/09/18 08:38 Norvasc PO 5 mg DAILY [facility] Administration Dextrose 0 ml 06/11/18 22:54 Dextrose 50% Inj IV STAT PRN Hypoglycemia Protocol Protocol Dextrose 0 gm 06/11/18 22:54 Glutose 15 PO ONCE PRN Hypoglycemia Protocol Protocol Dimethicone 1 applic 06/25/18 17:00 07/09/18 14:56 Proshield Plus Skin Protectant TOP 1 applic Q8 [facility] Administration Enoxaparin Sodium 30 mg 06/16/18 13:30 06/17/18 09:20 Lovenox SC 30 mg DAILY [facility] Administration Protocol Glucagon 0 mg 06/11/18 22:54 Glucagen Diagnostic Kit IM STAT PRN Hypoglycemia Protocol Protocol Insulin Human Lispro 0 units 06/25/18 12:00 07/09/18 14:27 Humalog SC 1 units 0000,0600,1200,1800 [facility] Administration Protocol Lamivudine 300 mg 06/25/18 09:00 07/09/18 08:37 Epivir PO 300 mg DAILY [facility] Administration Protocol Methylprednisolone 8 mg 07/09/18 09:00 07/09/18 08:38 Medrol PO 8 mg DAILY [facility] Administration Nystatin 1 applic 06/25/18 13:00 07/09/18 14:55 Nystop Topical Powder TOP 1 applic TID [facility] Administration Ondansetron HCl 4 mg 07/05/18 20:50 07/05/18 21:16 Zofran Inj IVP 4 mg Q4 PRN Administration Nausea/Vomiting Tenofovir Disoproxil Fumarate 300 mg 06/25/18 09:00 07/09/18 08:40 Viread PO 300 mg DAILY [facility] Administration Protocol Trimethoprim/Sulfamethoxazole 20 ml 07/08/18 15:00 07/08/18 17:13 Sulfatrim Pediatric Susp PO 20 ml Q24H [facility] Administration Protocol Valganciclovir 900 mg 07/04/18 17:00 07/09/18 08:39 Valcyte PO 900 mg BID [facility] Administration - Patient Studies Lab Studies: Lab Studies 07/09/18 07/09/18 07/09/18 Range/Units 14:09 11:25 06:01 WBC (4.8-10.8) K/uL RBC (4.40-5.90) Mil/uL Hgb (12.0-18.0) g/dL Hct (35.0-51.0) % MCV (80.0-94.0) fl MCH (27.0-31.0) pg MCHC (33.0-37.0) g/dL RDW (11.5-14.5) % Plt Count (130-400) K/uL Sodium (132-148) mmol/l Potassium (3.6-5.0) MMOL/L Chloride (98-107) mmol/L Carbon Dioxide (22-30) mmol/L Anion Gap (10-20) BUN (9-20) mg/dl Creatinine (0.8-1.5) mg/dl Est GFR ( Amer) Est GFR (Non-Af Amer) POC Glucose (mg/dL) 175 H 143 H 109 (65-110) mg/dL Random Glucose (75-110) mg/dL Calcium (8.4-10.2) mg/dL Total Bilirubin (0.2-1.3) mg/dl AST (17-59) U/L ALT (21-72) U/L Alkaline Phosphatase (38-126) U/L Total Protein (6.3-8.2) G/DL Albumin (3.5-5.0) g/dL Globulin (2.2-3.9) gm/dL Albumin/Globulin Ratio (1.0-2.1) 07/09/18 07/09/18 07/08/18 Range/Units 04:30 04:30 22:34 WBC 4.7 L (4.8-10.8) K/uL RBC 2.98 L (4.40-5.90) Mil/uL Hgb 8.5 L (12.0-18.0) g/dL Hct 26.0 L (35.0-51.0) % MCV 87.3 D (80.0-94.0) fl MCH 28.5 (27.0-31.0) pg MCHC 32.6 L (33.0-37.0) g/dL RDW 20.2 H (11.5-14.5) % Plt Count 323 (130-400) K/uL Sodium 139 (132-148) mmol/l Potassium 4.1 (3.6-5.0) MMOL/L Chloride 105 (98-107) mmol/L Carbon Dioxide 26 (22-30) mmol/L Anion Gap 12 (10-20) BUN 26 H (9-20) mg/dl Creatinine 1.1 (0.8-1.5) mg/dl Est GFR ( Amer) > 60 Est GFR (Non-Af Amer) > 60 POC Glucose (mg/dL) 136 H (65-110) mg/dL Random Glucose 103 (75-110) mg/dL Calcium 9.1 (8.4-10.2) mg/dL Total Bilirubin 0.8 (0.2-1.3) mg/dl AST 32 (17-59) U/L ALT 40 (21-72) U/L Alkaline Phosphatase 145 H (38-126) U/L Total Protein 6.3 (6.3-8.2) G/DL Albumin 3.0 L (3.5-5.0) g/dL Globulin 3.3 (2.2-3.9) gm/dL Albumin/Globulin Ratio 0.9 L (1.0-2.1) /07/24 Range/Units 16:27 WBC (4.8-10.8) K/uL RBC (4.40-5.90) Mil/uL Hgb (12.0-18.0) g/dL Hct (35.0-51.0) % MCV (80.0-94.0) fl MCH (27.0-31.0) pg MCHC (33.0-37.0) g/dL RDW (11.5-14.5) % Plt Count (130-400) K/uL Sodium (132-148) mmol/l Potassium (3.6-5.0) MMOL/L Chloride (98-107) mmol/L Carbon Dioxide (22-30) mmol/L Anion Gap (10-20) BUN (9-20) mg/dl Creatinine (0.8-1.5) mg/dl Est GFR ( Amer) Est GFR (Non-Af Amer) POC Glucose (mg/dL) 191 H (65-110) mg/dL Random Glucose (75-110) mg/dL Calcium (8.4-10.2) mg/dL Total Bilirubin (0.2-1.3) mg/dl AST (17-59) U/L ALT (21-72) U/L Alkaline Phosphatase (38-126) U/L Total Protein (6.3-8.2) G/DL Albumin (3.5-5.0) g/dL Globulin (2.2-3.9) gm/dL Albumin/Globulin Ratio (1.0-2.1) Laboratory Results - last 24 hr 07/08/18 07/08/18 07/09/18 16:27 22:34 04:30 WBC 4.7 L RBC 2.98 L Hgb 8.5 L Hct 26.0 L MCV 87.3 D MCH 28.5 MCHC 32.6 L RDW 20.2 H Plt Count 323 Sodium Potassium Chloride Carbon Dioxide Anion Gap BUN Creatinine Est GFR ( Amer) Est GFR (Non-Af Amer) POC Glucose (mg/dL) 191 H 136 H Random Glucose Calcium Total Bilirubin AST ALT Alkaline Phosphatase Total Protein Albumin Globulin Albumin/Globulin Ratio 07/09/18 07/09/18 07/09/18 04:30 06:01 11:25 WBC RBC Hgb Hct MCV MCH MCHC RDW Plt Count Sodium 139 Potassium 4.1 Chloride 105 Carbon Dioxide 26 Anion Gap 12 BUN 26 H Creatinine 1.1 Est GFR ( Amer) > 60 Est GFR (Non-Af Amer) > 60 POC Glucose (mg/dL) 109 143 H Random Glucose 103 Calcium 9.1 Total Bilirubin 0.8 AST 32 ALT 40 Alkaline Phosphatase 145 H Total Protein 6.3 Albumin 3.0 L Globulin 3.3 Albumin/Globulin Ratio 0.9 L 07/09/18 14:09 WBC RBC Hgb Hct MCV MCH MCHC RDW Plt Count Sodium Potassium Chloride Carbon Dioxide Anion Gap BUN Creatinine Est GFR ( Amer) Est GFR (Non-Af Amer) POC Glucose (mg/dL) 175 H Random Glucose Calcium Total Bilirubin AST ALT Alkaline Phosphatase Total Protein Albumin Globulin Albumin/Globulin Ratio Fingerstick Blood Sugar Results: 175 Review of Systems - Constitutional Constitutional: absent: Fever, Chills, Sweats - Cardiovascular Cardiovascular: absent: Chest Pain - Respiratory Respiratory: absent: Cough, Dyspnea, Hemoptysis, Dyspnea on Exertion Critical Care Progress Note - Extremities/Vascular Does the Patient have a Central Venous Catheter?: No Does the Patient need a Central Venous Catheter?: No Does the Patient have a Yang Catheter?: No Does the Patient need a Yang Catheter?: No - Nutrition Nutrition: Nutrition Category Date Time Status NPO Diet [DIET] Diets 07/03/18 Breakfast Active Assessment/Plan (1) Acute respiratory failure Current Visit: Yes Status: Acute Comment: Patient was intubated for worsening mental status, airway protection and also for hypoxemia secondary to bilateral pneumonia presumptively PCP, He was successfully extubated Chest x-ray 07/05 was reviewed, Improved bilateral infilterate improve oxygenation and ventilation also mental status Continue with antibiotic coverage Aggressive pulmonary toileting chest PT and suctioning Sputum for AFB x 3 negative (2) Severe sepsis Current Visit: Yes Status: Acute Priority: High Comment: BP improved, no vasopressors, Continue current broad spectrum antibiotics as per ID Presumptive treatment herpes and for PCP ID consult appretiated (3) Acute renal failure Current Visit: Yes Status: Acute Priority: High Comment: Acute renal injury due to circulatory failure and septic shock Hypotensive improved, No vasopressors Morning Labs showing improved renal functions Monitor Input/Output (4) Altered mental status Current Visit: Yes Status: Acute Priority: High Comment: RemarkaBLY IMPROVED Toxic metabolic Encephalopathy Intially Suspect central nervous system infection, Started on imperic coverage Spinal tap was done, results negative so far Monitor for neurological improvement Head CT scan x2 negative for bleed, mass or acute pathology EEG Abnormal, non spesific findings, no seizures MRI negative (5) Pneumonia Current Visit: Yes Status: Acute Priority: High Comment: Improved Multifocal pneumonia in immune compromised AIDS patient. PCP pneumonia certainly needs to be high consideration especially with hypoxemia and Radiographic findings in addition pt could have strep pneumonia pneumonia As per sepsis, plus Solu-Medrol 40 mg IVP Q12 and bactrim presumptive treatment for PCP. Current Antibiotics (6) HIV (human immunodeficiency virus infection) Current Visit: Yes Status: Acute Priority: High Comment: HAART medcations initiated after cryptococcal meningitis was ruled out
--- NOTE | 2018-07-09 15:53 | CP.PCM.PN ---
Subjective - Date & Time of Evaluation Date of Evaluation: 07/09/18 Time of Evaluation: 09:40 - Subjective Subjective: F/U Respiratory Failure Pt awake, attempt to talk, follow simple commands. Objective - Vital Signs/Intake and Output Vital Signs (last 24 hours): Temp Pulse Resp BP Pulse Ox 98.6 F 78 22 137/92 H 100 07/09/18 12:00 07/09/18 14:00 07/09/18 14:00 07/09/18 14:00 07/09/18 14:00 Intake and Output: 07/09/18 07/09/18 06:59 18:59 Intake Total 575 Output Total 100 200 Balance 475 -200 - Medications Medications: Current Medications Acetaminophen (Tylenol 325mg Tab) 650 mg PO Q4 PRN PRN Reason: Fever >100.4 F Last Admin: 06/25/18 21:40 Dose: 650 mg Acetaminophen (Tylenol 650 Mg Supp) 650 mg NE Q6 PRN PRN Reason: Fever >100.4 F Last Admin: 06/20/18 02:30 Dose: 650 mg Amlodipine Besylate (Norvasc) 5 mg PO DAILY [facility] Last Admin: 07/09/18 08:38 Dose: 5 mg Dextrose (Dextrose 50% Inj) 0 ml IV STAT PRN; Protocol PRN Reason: Hypoglycemia Protocol Dextrose (Glutose 15) 0 gm PO ONCE PRN; Protocol PRN Reason: Hypoglycemia Protocol Dimethicone (Proshield Plus Skin Protectant) 1 applic TOP Q8 [facility] Last Admin: 07/09/18 14:56 Dose: 1 applic Enoxaparin Sodium (Lovenox) 30 mg SC DAILY [facility]; Protocol Last Admin: 06/17/18 09:20 Dose: 30 mg Glucagon (Glucagen Diagnostic Kit) 0 mg IM STAT PRN; Protocol PRN Reason: Hypoglycemia Protocol Insulin Human Lispro (Humalog) 0 units SC 0000,0600,1200,1800 [facility]; Protocol Last Admin: 07/09/18 14:27 Dose: 1 units Lamivudine (Epivir) 300 mg PO DAILY [facility]; Protocol Last Admin: 07/09/18 08:37 Dose: 300 mg Methylprednisolone (Medrol) 8 mg PO DAILY [facility] Last Admin: 07/09/18 08:38 Dose: 8 mg Nystatin (Nystop Topical Powder) 1 applic TOP TID [facility] Last Admin: 07/09/18 14:55 Dose: 1 applic Ondansetron HCl (Zofran Inj) 4 mg IVP Q4 PRN PRN Reason: Nausea/Vomiting Last Admin: 07/05/18 21:16 Dose: 4 mg Tenofovir Disoproxil Fumarate (Viread) 300 mg PO DAILY [facility]; Protocol Last Admin: 07/09/18 08:40 Dose: 300 mg Trimethoprim/Sulfamethoxazole (Sulfatrim Pediatric Susp) 20 ml PO Q24H [facility]; Protocol Last Admin: 07/08/18 17:13 Dose: 20 ml Valganciclovir (Valcyte) 900 mg PO BID [facility] Last Admin: 07/09/18 08:39 Dose: 900 mg - Labs Labs: 07/09/18 04:30 07/09/18 04:30 PT 10.8 Seconds (9.8-13.1) 07/03/18 08:10 INR 1.0 07/03/18 08:10 APTT 25.9 Seconds (25.6-37.1) 07/03/18 08:10 - Constitutional Appears: Chronically Ill - Head Exam Head Exam: NORMAL INSPECTION - Eye Exam Eye Exam: PERRL - ENT Exam ENT Exam: Normal Exam - Neck Exam Additional comments: Tracheostomy. Trach colar - Respiratory Exam Respiratory Exam: Decreased Breath Sounds (at bases) - Cardiovascular Exam Cardiovascular Exam: REGULAR RHYTHM - GI/Abdominal Exam GI & Abdominal Exam: Soft, Normal Bowel Sounds - Extremities Exam Additional comments: Edema - Neurological Exam Neurological Exam: Alert, Awake Additional comments: Ox2, able to follow simple commands, mouthing words, moving extremities on commands. - Psychiatric Exam Psychiatric exam: Normal Mood - Skin Skin Exam: Warm Assessment and Plan (1) Respiratory failure Status: Resolved (2) Tracheostomy status Status: Acute (3) Altered mental status Status: Acute (4) HIV (human immunodeficiency virus infection) Status: Acute (5) Fever Status: Resolved (6) Pneumonia Status: Resolved (7) Severe sepsis Status: Resolved (8) Acute renal failure Status: Acute (9) Diabetes mellitus Status: Acute - Assessment and Plan (Free Text) Plan: F/U CXR, Swallow eval, continue on HAART,Medrol, Humalog, Norvasc, Nystatin and rest of Tx, for transfer to [facility] floor.
--- NOTE | 2018-07-09 16:37 | CP.PCM.PN ---
Subjective - Date & Time of Evaluation Date of Evaluation: 07/09/18 Time of Evaluation: 08:00 - Subjective Subjective: slow progress more alert following commands Objective - Vital Signs/Intake and Output Vital Signs (last 24 hours): Temp Pulse Resp BP Pulse Ox 97.8 F 77 20 165/84 H 100 07/09/18 16:28 07/09/18 16:28 07/09/18 16:28 07/09/18 16:28 07/09/18 16:28 Intake and Output: 07/09/18 07/09/18 06:59 18:59 Intake Total 575 Output Total 100 200 Balance 475 -200 - Medications Medications: Current Medications Acetaminophen (Tylenol 325mg Tab) 650 mg PO Q4 PRN PRN Reason: Fever >100.4 F Last Admin: 06/25/18 21:40 Dose: 650 mg Acetaminophen (Tylenol 650 Mg Supp) 650 mg HI Q6 PRN PRN Reason: Fever >100.4 F Last Admin: 06/20/18 02:30 Dose: 650 mg Amlodipine Besylate (Norvasc) 5 mg PO DAILY [facility] Last Admin: 07/09/18 08:38 Dose: 5 mg Dextrose (Dextrose 50% Inj) 0 ml IV STAT PRN; Protocol PRN Reason: Hypoglycemia Protocol Dextrose (Glutose 15) 0 gm PO ONCE PRN; Protocol PRN Reason: Hypoglycemia Protocol Dimethicone (Proshield Plus Skin Protectant) 1 applic TOP Q8 [facility] Last Admin: 07/09/18 14:56 Dose: 1 applic Enoxaparin Sodium (Lovenox) 30 mg SC DAILY [facility]; Protocol Last Admin: 06/17/18 09:20 Dose: 30 mg Glucagon (Glucagen Diagnostic Kit) 0 mg IM STAT PRN; Protocol PRN Reason: Hypoglycemia Protocol Insulin Human Lispro (Humalog) 0 units SC 0000,0600,1200,1800 [facility]; Protocol Last Admin: 07/09/18 14:27 Dose: 1 units Lamivudine (Epivir) 300 mg PO DAILY [facility]; Protocol Last Admin: 07/09/18 08:37 Dose: 300 mg Methylprednisolone (Medrol) 8 mg PO DAILY [facility] Last Admin: 07/09/18 08:38 Dose: 8 mg Nystatin (Nystop Topical Powder) 1 applic TOP TID [facility] Last Admin: 07/09/18 14:55 Dose: 1 applic Ondansetron HCl (Zofran Inj) 4 mg IVP Q4 PRN PRN Reason: Nausea/Vomiting Last Admin: 07/05/18 21:16 Dose: 4 mg Tenofovir Disoproxil Fumarate (Viread) 300 mg PO DAILY [facility]; Protocol Last Admin: 07/09/18 08:40 Dose: 300 mg Trimethoprim/Sulfamethoxazole (Sulfatrim Pediatric Susp) 20 ml PO Q24H [facility]; Protocol Last Admin: 07/08/18 17:13 Dose: 20 ml Valganciclovir (Valcyte) 900 mg PO BID [facility] Last Admin: 07/09/18 08:39 Dose: 900 mg - Labs Labs: 07/09/18 04:30 07/09/18 04:30 PT 10.8 Seconds (9.8-13.1) 07/03/18 08:10 INR 1.0 07/03/18 08:10 APTT 25.9 Seconds (25.6-37.1) 07/03/18 08:10 - Constitutional Appears: Non-toxic, Chronically Ill - Head Exam Head Exam: NORMOCEPHALIC - Eye Exam Eye Exam: absent: Scleral icterus - ENT Exam ENT Exam: Mucous Membranes Dry - Neck Exam Neck Exam: absent: Lymphadenopathy - Respiratory Exam Respiratory Exam: Decreased Breath Sounds - Cardiovascular Exam Cardiovascular Exam: REGULAR RHYTHM - GI/Abdominal Exam GI & Abdominal Exam: Distended - Rectal Exam Rectal Exam: Deferred - Exam Exam: NORMAL INSPECTION - Extremities Exam Extremities Exam: absent: Pedal Edema - Back Exam Back Exam: absent: CVA tenderness (L), CVA tenderness (R) - Neurological Exam Neurological Exam: Alert, Awake Assessment and Plan (1) Acute renal failure Status: Acute (2) Altered mental status Status: Acute (3) Diabetes mellitus Status: Acute (4) HIV (human immunodeficiency virus infection) Status: Acute (5) Pneumonia Status: Acute (6) Encephalopathy Status: Acute (7) CMV (cytomegalovirus) infection Status: Acute - Assessment and Plan (Free Text) 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
--- NOTE | 2018-07-09 16:40 | CP.PCM.PCO ---
Physician Communication Note - Physician Communication Note Physician Communication Note: reccomend ophthalmology eval
[2018-07-09] MEDS: Tmp-Smz 200-40mg/5 ml Oral Sus(120 ml) PO SCH (17:03)
[2018-07-10] MEDS: Proshield Plus GEL TOP SCH ×3 (00:23→17:13)
[2018-07-10] MEDS: Insulin Lispro (humaLOG) 100 Units/ml Inj SC SCH ×3 (00:23→12:00)
--- NOTE | 2018-07-10 09:54 | CP.PCM.PN ---
Subjective - Date & Time of Evaluation Date of Evaluation: 07/10/18 Time of Evaluation: 09:53 - Subjective Subjective: no overnight events Objective - Vital Signs/Intake and Output Vital Signs (last 24 hours): Temp Pulse Resp BP Pulse Ox 97.9 F 82 20 169/89 H 100 07/10/18 08:28 07/10/18 08:28 07/10/18 08:28 07/10/18 08:28 07/10/18 08:28 - Medications Medications: Current Medications Acetaminophen (Tylenol 325mg Tab) 650 mg PO Q4 PRN PRN Reason: Fever >100.4 F Last Admin: 06/25/18 21:40 Dose: 650 mg Acetaminophen (Tylenol 650 Mg Supp) 650 mg [place] Q6 PRN PRN Reason: Fever >100.4 F Last Admin: 06/20/18 02:30 Dose: 650 mg Amlodipine Besylate (Norvasc) 5 mg PO DAILY [facility] Last Admin: 07/09/18 08:38 Dose: 5 mg Dextrose (Dextrose 50% Inj) 0 ml IV STAT PRN; Protocol PRN Reason: Hypoglycemia Protocol Dextrose (Glutose 15) 0 gm PO ONCE PRN; Protocol PRN Reason: Hypoglycemia Protocol Dimethicone (Proshield Plus Skin Protectant) 1 applic TOP Q8 [facility] Last Admin: 07/10/18 00:23 Dose: 1 applic Enoxaparin Sodium (Lovenox) 30 mg SC DAILY [facility]; Protocol Last Admin: 06/17/18 09:20 Dose: 30 mg Glucagon (Glucagen Diagnostic Kit) 0 mg IM STAT PRN; Protocol PRN Reason: Hypoglycemia Protocol Insulin Human Lispro (Humalog) 0 units SC 0000,0600,1200,1800 [facility]; Protocol Last Admin: 07/10/18 06:43 Dose: Not Given Lamivudine (Epivir) 300 mg PO DAILY [facility]; Protocol Last Admin: 07/09/18 08:37 Dose: 300 mg Methylprednisolone (Medrol) 8 mg PO DAILY [facility] Last Admin: 07/09/18 08:38 Dose: 8 mg Nystatin (Nystop Topical Powder) 1 applic TOP TID [facility] Last Admin: 07/09/18 17:02 Dose: 1 applic Ondansetron HCl (Zofran Inj) 4 mg IVP Q4 PRN PRN Reason: Nausea/Vomiting Last Admin: 07/05/18 21:16 Dose: 4 mg Tenofovir Disoproxil Fumarate (Viread) 300 mg PO DAILY [facility]; Protocol Last Admin: 07/09/18 08:40 Dose: 300 mg Trimethoprim/Sulfamethoxazole (Sulfatrim Pediatric Susp) 20 ml PO Q24H [facility]; Protocol Last Admin: 07/09/18 17:03 Dose: 20 ml Valganciclovir (Valcyte) 900 mg PO BID [facility] Last Admin: 07/09/18 17:03 Dose: 900 mg - Labs Labs: 07/09/18 04:30 07/09/18 04:30 PT 10.8 Seconds (9.8-13.1) 07/03/18 08:10 INR 1.0 07/03/18 08:10 APTT 25.9 Seconds (25.6-37.1) 07/03/18 08:10 - ENT Exam ENT Exam: Normal Exam - Neck Exam Neck Exam: Normal Inspection - Respiratory Exam Respiratory Exam: Rhonchi, NORMAL BREATHING PATTERN - Cardiovascular Exam Cardiovascular Exam: REGULAR RHYTHM - GI/Abdominal Exam GI & Abdominal Exam: Soft, Normal Bowel Sounds Assessment and Plan - Assessment and Plan (Free Text) Assessment: 67 yo male with trach doing well encourage feeds
[2018-07-10] MEDS ORDERED: Barium Sulfate Susp 0.1% w/v, 0.1% w/w 450 mL Bottle PO ONE (11:14)
[2018-07-10] MEDS ORDERED: Sodium Chloride 3% for Inhalation 4 ML VIAL.NEB IH PRN (13:08)
[2018-07-10] MEDS: Ipratropium 0.02% Inhal Soln (0.5 mg/2.5 ml) UD IH SCH ×2 (13:18→19:06)
[2018-07-10] MEDS: Acetylcysteine 10% 4 ML IH SCH ×2 (13:18→19:06)
--- NOTE | 2018-07-10 13:36 | CP.PCM.PN ---
Objective - Vital Signs/Intake and Output Vital Signs (last 24 hours): Temp Pulse Resp BP Pulse Ox 97.9 F 82 20 169/89 H 100 07/10/18 08:28 07/10/18 08:28 07/10/18 08:28 07/10/18 08:28 07/10/18 08:28 - Medications Medications: Current Medications Acetaminophen (Tylenol 325mg Tab) 650 mg PO Q4 PRN PRN Reason: Fever >100.4 F Last Admin: 06/25/18 21:40 Dose: 650 mg Acetaminophen (Tylenol 650 Mg Supp) 650 mg [place] Q6 PRN PRN Reason: Fever >100.4 F Last Admin: 06/20/18 02:30 Dose: 650 mg Acetylcysteine (Mucomyst 10% 4ml) 4 ml IH Q6 [facility] Last Admin: 07/10/18 13:18 Dose: 4 ml Amlodipine Besylate (Norvasc) 5 mg PO DAILY [facility] Last Admin: 07/09/18 08:38 Dose: 5 mg Dextrose (Dextrose 50% Inj) 0 ml IV STAT PRN; Protocol PRN Reason: Hypoglycemia Protocol Dextrose (Glutose 15) 0 gm PO ONCE PRN; Protocol PRN Reason: Hypoglycemia Protocol Dimethicone (Proshield Plus Skin Protectant) 1 applic TOP Q8 [facility] Last Admin: 07/10/18 00:23 Dose: 1 applic Enoxaparin Sodium (Lovenox) 30 mg SC DAILY [facility]; Protocol Last Admin: 06/17/18 09:20 Dose: 30 mg Glucagon (Glucagen Diagnostic Kit) 0 mg IM STAT PRN; Protocol PRN Reason: Hypoglycemia Protocol Insulin Human Lispro (Humalog) 0 units SC 0000,0600,1200,1800 [facility]; Protocol Last Admin: 07/10/18 06:43 Dose: Not Given Ipratropium [place] (Atrovent) 0.5 mg IH RQ6 [facility] Last Admin: 07/10/18 13:18 Dose: 0.5 mg Lamivudine (Epivir) 300 mg PO DAILY [facility]; Protocol Last Admin: 07/09/18 08:37 Dose: 300 mg Methylprednisolone (Medrol) 8 mg PO DAILY [facility] Last Admin: 07/09/18 08:38 Dose: 8 mg Nystatin (Nystop Topical Powder) 1 applic TOP TID [facility] Last Admin: 07/09/18 17:02 Dose: 1 applic Ondansetron HCl (Zofran Inj) 4 mg IVP Q4 PRN PRN Reason: Nausea/Vomiting Last Admin: 07/05/18 21:16 Dose: 4 mg Tenofovir Disoproxil Fumarate (Viread) 300 mg PO DAILY [facility]; Protocol Last Admin: 07/09/18 08:40 Dose: 300 mg Trimethoprim/Sulfamethoxazole (Sulfatrim Pediatric Susp) 20 ml PO Q24H [facility]; P rotocol Last Admin: 07/09/18 17:03 Dose: 20 ml Valganciclovir (Valcyte) 900 mg PO BID [facility] Last Admin: 07/09/18 17:03 Dose: 900 mg - Labs Labs: 07/09/18 04:30 07/09/18 04:30 PT 10.8 Seconds (9.8-13.1) 07/03/18 08:10 INR 1.0 07/03/18 08:10 APTT 25.9 Seconds (25.6-37.1) 07/03/18 08:10 Assessment and Plan (1) Respiratory failure Status: Acute (2) Altered mental status Status: Acute (3) HIV (human immunodeficiency virus infection) Status: Acute (4) Fever Status: Acute (5) Pneumonia Status: Acute (6) Severe sepsis Status: Acute (7) Acute renal failure Status: Acute (8) Diabetes mellitus Status: Acute
--- NOTE | 2018-07-10 13:50 | CP.PCM.PN ---
Subjective - Date & Time of Evaluation Date of Evaluation: 07/10/18 Time of Evaluation: 13:50 - Subjective Subjective: More awake vital signs noted to be stable Kidney function appears to be recovering from acute kidney injury. Objective - Vital Signs/Intake and Output Vital Signs (last 24 hours): Temp Pulse Resp BP Pulse Ox 97.9 F 82 20 169/89 H 100 07/10/18 08:28 07/10/18 08:28 07/10/18 08:28 07/10/18 08:28 07/10/18 08:28 - Medications Medications: Current Medications Acetaminophen (Tylenol 325mg Tab) 650 mg PO Q4 PRN PRN Reason: Fever >100.4 F Last Admin: 06/25/18 21:40 Dose: 650 mg Acetaminophen (Tylenol 650 Mg Supp) 650 mg [place] Q6 PRN PRN Reason: Fever >100.4 F Last Admin: 06/20/18 02:30 Dose: 650 mg Acetylcysteine (Mucomyst 10% 4ml) 4 ml IH Q6 [facility] Last Admin: 07/10/18 13:18 Dose: 4 ml Amlodipine Besylate (Norvasc) 5 mg PO DAILY [facility] Last Admin: 07/09/18 08:38 Dose: 5 mg Dextrose (Dextrose 50% Inj) 0 ml IV STAT PRN; Protocol PRN Reason: Hypoglycemia Protocol Dextrose (Glutose 15) 0 gm PO ONCE PRN; Protocol PRN Reason: Hypoglycemia Protocol Dimethicone (Proshield Plus Skin Protectant) 1 applic TOP Q8 [facility] Last Admin: 07/10/18 00:23 Dose: 1 applic Enoxaparin Sodium (Lovenox) 30 mg SC DAILY [facility]; Protocol Last Admin: 06/17/18 09:20 Dose: 30 mg Glucagon (Glucagen Diagnostic Kit) 0 mg IM STAT PRN; Protocol PRN Reason: Hypoglycemia Protocol Insulin Human Lispro (Humalog) 0 units SC 0000,0600,1200,1800 [facility]; Protocol Last Admin: 07/10/18 06:43 Dose: Not Given Ipratropium [place] (Atrovent) 0.5 mg IH RQ6 [facility] Last Admin: 07/10/18 13:18 Dose: 0.5 mg Lamivudine (Epivir) 300 mg PO DAILY [facility]; Protocol Last Admin: 07/09/18 08:37 Dose: 300 mg Methylprednisolone (Medrol) 8 mg PO DAILY [facility] Last Admin: 07/09/18 08:38 Dose: 8 mg Nystatin (Nystop Topical Powder) 1 applic TOP TID [facility] Last Admin: 07/09/18 17:02 Dose: 1 applic Ondansetron HCl (Zofran Inj) 4 mg IVP Q4 PRN PRN Reason: Nausea/Vomiting Last Admin: 07/05/18 21:16 Dose: 4 mg Tenofovir Disoproxil Fumarate (Viread) 300 mg PO DAILY [facility]; Protocol Last Admin: 07/09/18 08:40 Dose: 300 mg Trimethoprim/Sulfamethoxazole (Sulfatrim Pediatric Susp) 20 ml PO Q24H [facility]; Protocol Last Admin: 07/09/18 17:03 Dose: 20 ml Valganciclovir (Valcyte) 900 mg PO BID [facility] Last Admin: 07/09/18 17:03 Dose: 900 mg - Labs Labs: 07/09/18 04:30 07/09/18 04:30 PT 10.8 Seconds (9.8-13.1) 07/03/18 08:10 INR 1.0 07/03/18 08:10 APTT 25.9 Seconds (25.6-37.1) 07/03/18 08:10 - Constitutional Appears: No Acute Distress - Eye Exam Eye Exam: Conjunctival injection - ENT Exam ENT Exam: Mucous Membranes Moist - Cardiovascular Exam Cardiovascular Exam: absent: Gallop, JVD, Rubs - GI/Abdominal Exam GI & Abdominal Exam: Soft, Normal Bowel Sounds - Extremities Exam Extremities Exam: absent: Calf Tenderness - Back Exam Back Exam: absent: CVA tenderness (L), CVA tenderness (R) - Skin Skin Exam: absent: Cyanosis Assessment and Plan (1) Acute renal failure Assessment & Plan: HUGO Recovering Sepsis Encephalopathy much better, more awake Respiratory failure extubated Hyponatremia corrected HIV/AIDS severe malnutritoon CMV viremia Recommendation Antibiotics as per primary team Status: Acute (2) HIV (human immunodeficiency virus infection) Status: Acute
--- NOTE | 2018-07-10 14:00 | RAD ---
Date of service: 07/10/2018 PROCEDURE: CHEST RADIOGRAPH, 1 VIEW HISTORY: dr matias, post swallow eval COMPARISON: 07/05/2018. FINDINGS: Tracheostomy tube remains in stable position. The right PICC line terminates at the cavoatrial junction LUNGS: The right lung is well inflated and clear. There is resolving pneumonia in the left mid lung. PLEURA: No pneumothorax or pleural effusion. CARDIOVASCULAR: The heart is normal in size. No aortic atherosclerotic calcifications present. OSSEOUS STRUCTURES: Within normal limits for the patient's age. VISUALIZED UPPER ABDOMEN: Normal. OTHER FINDINGS: Contrast material from prior oral ingestion is seen in the stomach. IMPRESSION: Resolving pneumonia in the left mid lung. The right lung is clear. Stable position of tracheostomy tube and right PICC line.
[2018-07-10] MEDS: Tmp-Smz 200-40mg/5 ml Oral Sus(120 ml) PO SCH (15:00)
--- NOTE | 2018-07-10 16:29 | CP.PCM.PN ---
Subjective - Date & Time of Evaluation Date of Evaluation: 07/10/18 Time of Evaluation: 12:00 - Subjective Subjective: F/U S/P Tracheostomy. Awake, able to talk through the Tracheostomy, yellowish secretions from tracheotomy. Objective - Vital Signs/Intake and Output Vital Signs (last 24 hours): Temp Pulse Resp BP Pulse Ox 97.9 F 82 20 169/89 H 100 07/10/18 08:28 07/10/18 08:28 07/10/18 08:28 07/10/18 08:28 07/10/18 08:28 - Medications Medications: Current Medications Acetaminophen (Tylenol 325mg Tab) 650 mg PO Q4 PRN PRN Reason: Fever >100.4 F Last Admin: 06/25/18 21:40 Dose: 650 mg Acetaminophen (Tylenol 650 Mg Supp) 650 mg [place] Q6 PRN PRN Reason: Fever >100.4 F Last Admin: 06/20/18 02:30 Dose: 650 mg Acetylcysteine (Mucomyst 10% 4ml) 4 ml IH Q6 [facility] Last Admin: 07/10/18 13:18 Dose: 4 ml Amlodipine Besylate (Norvasc) 5 mg PO DAILY [facility] Last Admin: 07/10/18 09:06 Dose: Not Given Dextrose (Dextrose 50% Inj) 0 ml IV STAT PRN; Protocol PRN Reason: Hypoglycemia Protocol Dextrose (Glutose 15) 0 gm PO ONCE PRN; Protocol PRN Reason: Hypoglycemia Protocol Dimethicone (Proshield Plus Skin Protectant) 1 applic TOP Q8 [facility] Last Admin: 07/10/18 00:23 Dose: 1 applic Enoxaparin Sodium (Lovenox) 30 mg SC DAILY [facility]; Protocol Last Admin: 06/17/18 09:20 Dose: 30 mg Glucagon (Glucagen Diagnostic Kit) 0 mg IM STAT PRN; Protocol PRN Reason: Hypoglycemia Protocol Insulin Human Lispro (Humalog) 0 units SC 0000,0600,1200,1800 [facility]; Protocol Last Admin: 07/10/18 06:43 Dose: Not Given Ipratropium [place] (Atrovent) 0.5 mg IH RQ6 [facility] Last Admin: 07/10/18 13:18 Dose: 0.5 mg Lamivudine (Epivir) 300 mg PO DAILY [facility]; Protocol Last Admin: 07/10/18 09:06 Dose: Not Given Methylprednisolone (Medrol) 8 mg PO DAILY [facility] Last Admin: 07/10/18 09:06 Dose: Not Given Nystatin (Nystop Topical Powder) 1 applic TOP TID [facility] Last Admin: 07/09/18 17:02 Dose: 1 applic Ondansetron HCl (Zofran Inj) 4 mg IVP Q4 PRN PRN Reason: Nausea/Vomiting Last Admin: 07/05/18 21:16 Dose: 4 mg Tenofovir Disoproxil Fumarate (Viread) 300 mg PO DAILY [facility]; Protocol Last Admin: 07/10/18 09:08 Dose: Not Given Trimethoprim/Sulfamethoxazole (Sulfatrim Pediatric Susp) 20 ml PO Q24H [facility]; Protocol Last Admin: 07/10/18 15:00 Dose: Not Given Valganciclovir (Valcyte) 900 mg PO BID [facility] Last Admin: 07/10/18 09:07 Dose: Not Given - Labs Labs: 07/09/18 04:30 07/09/18 04:30 PT 10.8 Seconds (9.8-13.1) 07/03/18 08:10 INR 1.0 07/03/18 08:10 APTT 25.9 Seconds (25.6-37.1) 07/03/18 08:10 - Constitutional Appears: Chronically Ill - Head Exam Head Exam: NORMAL INSPECTION - Eye Exam Eye Exam: PERRL - ENT Exam ENT Exam: Normal Exam - Neck Exam Additional comments: Tracheostomy. Trach Collar - Respiratory Exam Respiratory Exam: Decreased Breath Sounds (at bases) - Cardiovascular Exam Cardiovascular Exam: REGULAR RHYTHM - GI/Abdominal Exam GI & Abdominal Exam: Soft, Normal Bowel Sounds - Extremities Exam Additional comments: Edema - Neurological Exam Neurological Exam: Alert, Awake Additional comments: Able to follows simple commands, moving extremities on commands. - Psychiatric Exam Additional comments: Calm - Skin Skin Exam: Warm Assessment and Plan (1) Respiratory failure Status: Resolved (2) Tracheostomy status Status: Acute (3) Altered mental status Status: Acute (4) HIV (human immunodeficiency virus infection) Status: Acute (5) Fever Status: Resolved (6) Pneumonia Status: Resolved (7) Severe sepsis Status: Resolved (8) Acute renal failure Status: Acute (9) Diabetes mellitus Status: Acute - Assessment and Plan (Free Text) Plan: F/U CXR today, repeat tracheal aspiration C-S, f/u video swallow today. continue with Atrovent Albuterol, Mucomyst and rest of Tx.
[2018-07-11] MEDS: Insulin Lispro (humaLOG) 100 Units/ml Inj SC SCH ×4 (01:00→18:03)
[2018-07-11] MEDS: Ipratropium 0.02% Inhal Soln (0.5 mg/2.5 ml) UD IH SCH ×3 (01:06→13:50)
[2018-07-11] MEDS: Proshield Plus GEL TOP SCH ×3 (01:28→16:16)
[2018-07-11] MEDS: Acetylcysteine 10% 4 ML IH SCH ×4 (04:02→20:08)
[2018-07-11 06:31] LABS: HEMOGLOBIN 8.5 g/dL (12.0-18.0); MEAN CELL VOLUME 87.9 fl (80.0-94.0); MEAN CORPUSCULAR HEMOGLOBIN 28.9 pg (27.0-31.0); MEAN CORPUSCULAR HGB CONC 32.9 g/dL (33.0-37.0); RBC 2.92 Mil/uL (4.40-5.90); RED CELL DISTRIBUTION WIDTH 19.6 % (11.5-14.5); WHITE BLOOD COUNT 3.7 K/uL (4.8-10.8)
[2018-07-11 06:44] LABS: BLOOD UREA NITROGEN 27 mg/dl (9-20); CALCIUM 9.6 mg/dL (8.4-10.2); GFR NON-AFRICAN AMERICAN 51
--- NOTE | 2018-07-11 13:13 | CP.PCM.PN ---
Subjective - Date & Time of Evaluation Date of Evaluation: 07/11/18 Time of Evaluation: 09:00 - Subjective Subjective: no fever awake alert trach collar in place appettite [place] Objective - Vital Signs/Intake and Output Vital Signs (last 24 hours): Temp Pulse Resp BP Pulse Ox 97.5 F L 99 H 20 179/99 H 100 07/11/18 08:14 07/11/18 09:35 07/11/18 08:14 07/11/18 09:35 07/11/18 08:14 - Medications Medications: Current Medications Acetaminophen (Tylenol 325mg Tab) 650 mg PO Q4 PRN PRN Reason: Fever >100.4 F Last Admin: 06/25/18 21:40 Dose: 650 mg Acetaminophen (Tylenol 650 Mg Supp) 650 mg [place] Q6 PRN PRN Reason: Fever >100.4 F Last Admin: 06/20/18 02:30 Dose: 650 mg Acetylcysteine (Mucomyst 10% 4ml) 4 ml IH Q6 [facility] Last Admin: 07/11/18 07:37 Dose: Not Given Amlodipine Besylate (Norvasc) 5 mg PO DAILY [facility] Last Admin: 07/11/18 09:35 Dose: 5 mg Dimethicone (Proshield Plus Skin Protectant) 1 applic TOP Q8 [facility] Last Admin: 07/11/18 09:36 Dose: 1 applic Enoxaparin Sodium (Lovenox) 30 mg SC DAILY [facility]; Protocol Last Admin: 06/17/18 09:20 Dose: 30 mg Insulin Human Lispro (Humalog) 0 units SC 0000,0600,1200,1800 [facility]; Protocol Last Admin: 07/11/18 12:39 Dose: 1 units Ipratropium [place] (Atrovent) 0.5 mg IH RQ6 [facility] Last Admin: 07/11/18 07:37 Dose: 0.5 mg Lamivudine (Epivir) 300 mg PO DAILY [facility]; Protocol Last Admin: 07/11/18 09:35 Dose: 300 mg Methylprednisolone (Medrol) 8 mg PO DAILY [facility] Last Admin: 07/11/18 09:35 Dose: 8 mg Nystatin (Nystop Topical Powder) 1 applic TOP TID [facility] Last Admin: 07/11/18 12:40 Dose: 1 applic Ondansetron HCl (Zofran Inj) 4 mg IVP Q4 PRN PRN Reason: Nausea/Vomiting Last Admin: 07/05/18 21:16 Dose: 4 mg Tenofovir Disoproxil Fumarate (Viread) 300 mg PO DAILY [facility]; Protocol Last Admin: 07/11/18 09:35 Dose: 300 mg Trimethoprim/Sulfamethoxazole (Sulfatrim Pediatric Susp) 20 ml PO Q24H [facility]; Protocol Last Admin: 07/10/18 15:00 Dose: Not Given Valganciclovir (Valcyte) 900 mg PO BID [facility] Last Admin: 07/11/18 09:35 Dose: 900 mg - Labs Labs: 07/11/18 06:00 07/11/18 06:00 PT 10.8 Seconds (9.8-13.1) 07/03/18 08:10 INR 1.0 07/03/18 08:10 APTT 25.9 Seconds (25.6-37.1) 07/03/18 08:10 - Constitutional Appears: Non-toxic, Cachectic, Chronically Ill - Head Exam Head Exam: NORMOCEPHALIC - Eye Exam Eye Exam: absent: Scleral icterus - ENT Exam ENT Exam: Mucous Membranes Dry - Neck Exam Neck Exam: absent: Lymphadenopathy - Respiratory Exam Respiratory Exam: Decreased Breath Sounds - Cardiovascular Exam Cardiovascular Exam: REGULAR RHYTHM, +S1, +S2 - GI/Abdominal Exam GI & Abdominal Exam: Distended - Rectal Exam Rectal Exam: Deferred - Exam Exam: NORMAL INSPECTION - Extremities Exam Extremities Exam: absent: Pedal Edema - Back Exam Back Exam: absent: CVA tenderness (L), CVA tenderness (R) - Neurological Exam Neurological Exam: Alert, Altered, Awake, CN II-XII Intact - Psychiatric Exam Psychiatric exam: Depressed Assessment and Plan (1) Acute renal failure Status: Acute (2) Altered mental status Status: Acute (3) Diabetes mellitus Status: Acute (4) HIV (human immunodeficiency virus infection) Status: Acute (5) Pneumonia Status: Acute (6) Encephalopathy Status: Acute (7) CMV (cytomegalovirus) infection Status: Acute - Assessment and Plan (Free Text) 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
--- NOTE | 2018-07-11 15:12 | CP.PCM.PN ---
Subjective - Date & Time of Evaluation Date of Evaluation: 07/11/18 Time of Evaluation: 12:40 - Subjective Subjective: S/P Tracheostomy Pt awake, no A/D, eating puree diet, follows commands. Objective - Vital Signs/Intake and Output Vital Signs (last 24 hours): Temp Pulse Resp BP Pulse Ox 97.5 F L 99 H 20 179/99 H 100 07/11/18 08:14 07/11/18 09:35 07/11/18 08:14 07/11/18 09:35 07/11/18 08:14 - Medications Medications: Current Medications Acetaminophen (Tylenol 325mg Tab) 650 mg PO Q4 PRN PRN Reason: Fever >100.4 F Last Admin: 06/25/18 21:40 Dose: 650 mg Acetaminophen (Tylenol 650 Mg Supp) 650 mg [place] Q6 PRN PRN Reason: Fever >100.4 F Last Admin: 06/20/18 02:30 Dose: 650 mg Acetylcysteine (Mucomyst 10% 4ml) 4 ml IH Q6 [facility] Last Admin: 07/11/18 13:50 Dose: Not Given Albuterol/Ipratropium (Duoneb 3 Mg/0.5 Mg (3 Ml) Ud) 3 ml INH RQ6 PRN PRN Reason: Shortness of Breath Amlodipine Besylate (Norvasc) 5 mg PO DAILY [facility] Last Admin: 07/11/18 09:35 Dose: 5 mg Dimethicone (Proshield Plus Skin Protectant) 1 applic TOP Q8 [facility] Last Admin: 07/11/18 09:36 Dose: 1 applic Enoxaparin Sodium (Lovenox) 30 mg SC DAILY [facility]; Protocol Last Admin: 06/17/18 09:20 Dose: 30 mg Insulin Human Lispro (Humalog) 0 units SC 0000,0600,1200,1800 [facility]; Protocol Last Admin: 07/11/18 12:39 Dose: 1 units Lamivudine (Epivir) 300 mg PO DAILY [facility]; Protocol Last Admin: 07/11/18 09:35 Dose: 300 mg Methylprednisolone (Medrol) 8 mg PO DAILY [facility] Last Admin: 07/11/18 09:35 Dose: 8 mg Nystatin (Nystop Topical Powder) 1 applic TOP TID [facility] Last Admin: 07/11/18 12:40 Dose: 1 applic Ondansetron HCl (Zofran Inj) 4 mg IVP Q4 PRN PRN Reason: Nausea/Vomiting Last Admin: 07/05/18 21:16 Dose: 4 mg Tenofovir Disoproxil Fumarate (Viread) 300 mg PO DAILY [facility]; Protocol Last Admin: 07/11/18 09:35 Dose: 300 mg Trimethoprim/Sulfamethoxazole (Sulfatrim Pediatric Susp) 20 ml PO Q24H [facility]; Protocol Last Admin: 07/10/18 15:00 Dose: Not Given Valganciclovir (Valcyte) 900 mg PO BID [facility] Last Admin: 07/11/18 09:35 Dose: 900 mg - Labs Labs: 07/11/18 06:00 07/11/18 06:00 PT 10.8 Seconds (9.8-13.1) 07/03/18 08:10 INR 1.0 07/03/18 08:10 APTT 25.9 Seconds (25.6-37.1) 07/03/18 08:10 - Constitutional Appears: Chronically Ill - Head Exam Head Exam: NORMAL INSPECTION - Eye Exam Eye Exam: PERRL - ENT Exam ENT Exam: Normal Exam - Neck Exam Additional comments: Tracheostomy. Trach collar - Respiratory Exam Respiratory Exam: Decreased Breath Sounds (at bases) - Cardiovascular Exam Cardiovascular Exam: REGULAR RHYTHM - GI/Abdominal Exam GI & Abdominal Exam: Soft, Normal Bowel Sounds - Extremities Exam Additional comments: Edema - Neurological Exam Neurological Exam: Alert, Awake Additional comments: Able to follow simple commands, movingextremities on commands. - Psychiatric Exam Additional comments: Calm. - Skin Skin Exam: Warm Assessment and Plan (1) Respiratory failure Status: Resolved (2) Tracheostomy status Status: Acute (3) Altered mental status Status: Acute (4) HIV (human immunodeficiency virus infection) Status: Acute (5) Fever Status: Resolved (6) Pneumonia Status: Resolved (7) Severe sepsis Status: Resolved (8) Acute renal failure Status: Acute (9) Diabetes mellitus Status: Acute - Assessment and Plan (Free Text) Plan: Pt pass swallow eval, continue Duoneb, Medrol, Mucomyst, Nystatin, Proshied and rest of Tx.
[2018-07-11 15:53] LABS: ABG ALLEN TEST YES; ARTERIAL BLOOD GAS HEMOGLOBIN 8.8 g/dL (11.7-17.4); ARTERIAL BLOOD GAS O2 CAPACITY 12.2 mL/dL (16-24); ARTERIAL BLOOD GAS O2 CONTENT 12.2 ML/dL (15-23); ARTERIAL BLOOD GAS PCO2 31 mm/Hg (35-45); ARTERIAL BLOOD GAS PH 7.52 (7.35-7.45); ARTERIAL BLOOD GAS PO2 90 mm/Hg (80-100); ARTERIAL BLOOD GAS TCO2 26.3 mmol/L (22-28)
[2018-07-11] MEDS: Tmp-Smz 200-40mg/5 ml Oral Sus(120 ml) PO SCH (16:15)
[2018-07-11] MEDS: Albuterol-Ipratrop 3 mg / 0.5 (3 ml) UD INH PRN (20:07)
[2018-07-12] MEDS: Insulin Lispro (humaLOG) 100 Units/ml Inj SC SCH ×4 (00:33→18:48)
[2018-07-12] MEDS: Proshield Plus GEL TOP SCH ×3 (00:35→16:41)
[2018-07-12] MEDS: Albuterol-Ipratrop 3 mg / 0.5 (3 ml) UD INH PRN ×4 (02:24→19:12)
[2018-07-12] MEDS: Acetylcysteine 10% 4 ML IH SCH ×4 (02:25→19:13)
[2018-07-12] MEDS: Phenylephrine 2.5% Opht Soln OU PRN ×4 (07:03→07:09)
[2018-07-12] MEDS: Tropicamide 1% Opht 150 DROP/15 ML OU PRN ×4 (07:04→07:10)
--- NOTE | 2018-07-12 09:46 | CP.PCM.PN ---
Subjective - Date & Time of Evaluation Date of Evaluation: 07/11/18 Time of Evaluation: 15:30 - Subjective Subjective: no overnight events Objective - Vital Signs/Intake and Output Vital Signs (last 24 hours): Temp Pulse Resp BP Pulse Ox 98.3 F 88 21 170/85 H 100 07/12/18 08:12 07/12/18 08:32 07/12/18 08:12 07/12/18 08:32 07/12/18 08:12 - Medications Medications: Current Medications Acetaminophen (Tylenol 325mg Tab) 650 mg PO Q4 PRN PRN Reason: Fever >100.4 F Last Admin: 06/25/18 21:40 Dose: 650 mg Acetaminophen (Tylenol 650 Mg Supp) 650 mg [place] Q6 PRN PRN Reason: Fever >100.4 F Last Admin: 06/20/18 02:30 Dose: 650 mg Acetylcysteine (Mucomyst 10% 4ml) 4 ml IH Q6 [facility] Last Admin: 07/12/18 07:38 Dose: 4 ml Albuterol/Ipratropium (Duoneb 3 Mg/0.5 Mg (3 Ml) Ud) 3 ml INH RQ6 PRN PRN Reason: Shortness of Breath Last Admin: 07/12/18 07:37 Dose: 3 ml Amlodipine Besylate (Norvasc) 5 mg PO DAILY [facility] Last Admin: 07/12/18 08:32 Dose: 5 mg Dimethicone (Proshield Plus Skin Protectant) 1 applic TOP Q8 [facility] Last Admin: 07/12/18 08:32 Dose: 1 applic Enoxaparin Sodium (Lovenox) 30 mg SC DAILY [facility]; Protocol Last Admin: 06/17/18 09:20 Dose: 30 mg Insulin Human Lispro (Humalog) 0 units SC 0000,0600,1200,1800 [facility]; Protocol Last Admin: 07/12/18 06:06 Dose: 1 units Lamivudine (Epivir) 300 mg PO DAILY [facility]; Protocol Last Admin: 07/12/18 08:33 Dose: 300 mg Methylprednisolone (Medrol) 8 mg PO DAILY [facility] Last Admin: 07/12/18 08:32 Dose: 8 mg Nystatin (Nystop Topical Powder) 1 applic TOP TID [facility] Last Admin: 07/12/18 08:31 Dose: 1 applic Ondansetron HCl (Zofran Inj) 4 mg IVP Q4 PRN PRN Reason: Nausea/Vomiting Last Admin: 07/05/18 21:16 Dose: 4 mg Phenylephrine HCl (Phenylephrine Opht 2.5% Soln) 1 drop OU PRN PRN PRN Reason: dilate pupils Last Admin: 07/12/18 07:09 Dose: 1 drop Tenofovir Disoproxil Fumarate (Viread) 300 mg PO DAILY [facility]; Protocol Last Admin: 07/12/18 08:32 Dose: 300 mg Trimethoprim/Sulfamethoxazole (Sulfatrim Pediatric Susp) 20 ml PO Q24H [facility]; Protocol Last Admin: 07/11/18 16:15 Dose: 20 ml Tropicamide (Mydriacyl 1% Opht Soln 15ml) 1 drop OU PRN PRN PRN Reason: dilate pupils Last Admin: 07/12/18 07:10 Dose: 1 drop Valganciclovir (Valcyte) 900 mg PO BID [facility] Last Admin: 07/12/18 08:31 Dose: 900 mg - Labs Labs: 07/11/18 06:00 07/11/18 06:00 PT 10.8 Seconds (9.8-13.1) 07/03/18 08:10 INR 1.0 07/03/18 08:10 APTT 25.9 Seconds (25.6-37.1) 07/03/18 08:10 - Neck Exam Neck Exam: Normal Inspection - Respiratory Exam Respiratory Exam: Rhonchi, NORMAL BREATHING PATTERN - Cardiovascular Exam Cardiovascular Exam: REGULAR RHYTHM - GI/Abdominal Exam GI & Abdominal Exam: Soft, Normal Bowel Sounds Assessment and Plan - Assessment and Plan (Free Text) Assessment: 67 yo male with multiple medical problems doing well with trach tolerating diet no PEG needed at this time DC planning
--- NOTE | 2018-07-12 12:55 | CP.PCM.PN ---
Subjective - Date & Time of Evaluation Date of Evaluation: 07/12/18 Time of Evaluation: 09:20 - Subjective Subjective: S/P Tracheostomy. Pt awake, eating well, follows commands, Objective - Vital Signs/Intake and Output Vital Signs (last 24 hours): Temp Pulse Resp BP Pulse Ox 98.3 F 88 21 170/85 H 100 07/12/18 08:12 07/12/18 08:32 07/12/18 08:12 07/12/18 08:32 07/12/18 08:12 - Medications Medications: Current Medications Acetaminophen (Tylenol 325mg Tab) 650 mg PO Q4 PRN PRN Reason: Fever >100.4 F Last Admin: 06/25/18 21:40 Dose: 650 mg Acetaminophen (Tylenol 650 Mg Supp) 650 mg SD Q6 PRN PRN Reason: Fever >100.4 F Last Admin: 06/20/18 02:30 Dose: 650 mg Acetylcysteine (Mucomyst 10% 4ml) 4 ml IH Q6 RIMA Last Admin: 07/12/18 07:38 Dose: 4 ml Albuterol/Ipratropium (Duoneb 3 Mg/0.5 Mg (3 Ml) Ud) 3 ml INH RQ6 PRN PRN Reason: Shortness of Breath Last Admin: 07/12/18 07:37 Dose: 3 ml Amlodipine Besylate (Norvasc) 5 mg PO DAILY [facility] Last Admin: 07/12/18 08:32 Dose: 5 mg Dimethicone (Proshield Plus Skin Protectant) 1 applic TOP Q8 [facility] Last Admin: 07/12/18 08:32 Dose: 1 applic Enoxaparin Sodium (Lovenox) 30 mg SC DAILY [facility]; Protocol Last Admin: 06/17/18 09:20 Dose: 30 mg Insulin Human Lispro (Humalog) 0 units SC 0000,0600,1200,1800 [facility]; Protocol Last Admin: 07/12/18 06:06 Dose: 1 units Lamivudine (Epivir) 300 mg PO DAILY [facility]; Protocol Last Admin: 07/12/18 08:33 Dose: 300 mg Methylprednisolone (Medrol) 8 mg PO DAILY [facility] Last Admin: 07/12/18 08:32 Dose: 8 mg Nystatin (Nystop Topical Powder) 1 applic TOP TID [facility] Last Admin: 07/12/18 08:31 Dose: 1 applic Ondansetron HCl (Zofran Inj) 4 mg IVP Q4 PRN PRN Reason: Nausea/Vomiting Last Admin: 07/05/18 21:16 Dose: 4 mg Phenylephrine HCl (Phenylephrine Opht 2.5% Soln) 1 drop OU PRN PRN PRN Reason: dilate pupils Last Admin: 07/12/18 07:09 Dose: 1 drop Tenofovir Disoproxil Fumarate (Viread) 300 mg PO DAILY [facility]; Protocol Last Admin: 07/12/18 08:32 Dose: 300 mg Trimethoprim/Sulfamethoxazole (Sulfatrim Pediatric Susp) 20 ml PO Q24H [facility]; Protocol Last Admin: 07/11/18 16:15 Dose: 20 ml Tropicamide (Mydriacyl 1% Opht Soln 15ml) 1 drop OU PRN PRN PRN Reason: dilate pupils Last Admin: 07/12/18 07:10 Dose: 1 drop Valganciclovir (Valcyte) 900 mg PO BID [facility] Last Admin: 07/12/18 08:31 Dose: 900 mg - Labs Labs: 07/11/18 06:00 07/11/18 06:00 PT 10.8 Seconds (9.8-13.1) 07/03/18 08:10 INR 1.0 07/03/18 08:10 APTT 25.9 Seconds (25.6-37.1) 07/03/18 08:10 - Constitutional Appears: Chronically Ill - Head Exam Head Exam: NORMAL INSPECTION - Eye Exam Eye Exam: PERRL - ENT Exam ENT Exam: Normal Exam - Neck Exam Additional comments: Tracheostomy. Trach collar - Respiratory Exam Respiratory Exam: Decreased Breath Sounds (at abses) - Cardiovascular Exam Cardiovascular Exam: REGULAR RHYTHM - GI/Abdominal Exam GI & Abdominal Exam: Soft, Normal Bowel Sounds - Extremities Exam Additional comments: edema - Neurological Exam Neurological Exam: Alert, Awake Additional comments: follows simple commands, moving extremities on commands. - Psychiatric Exam Psychiatric exam: Normal Mood - Skin Skin Exam: Warm Assessment and Plan (1) Respiratory failure Status: Resolved (2) Tracheostomy status Status: Acute (3) Altered mental status Status: Acute (4) HIV (human immunodeficiency virus infection) Status: Acute (5) Fever Status: Resolved (6) Pneumonia Status: Resolved (7) Severe sepsis Status: Resolved (8) Acute renal failure Status: Acute (9) Diabetes mellitus Status: Acute - Assessment and Plan (Free Text) Plan: Pt using Low air matress. Continue HAART, Duoneb, Medrol, Mucomyst, Nystatin, Proshield and rest of tx.
[2018-07-12] MEDS: Tmp-Smz 200-40mg/5 ml Oral Sus(120 ml) PO SCH (16:40)
[2018-07-13] MEDS: Insulin Lispro (humaLOG) 100 Units/ml Inj SC SCH ×6 (00:12→22:00)
[2018-07-13] MEDS: Proshield Plus GEL TOP SCH ×3 (01:00→16:07)
[2018-07-13] MEDS: Albuterol-Ipratrop 3 mg / 0.5 (3 ml) UD INH PRN ×4 (01:15→19:41)
[2018-07-13] MEDS: Acetylcysteine 10% 4 ML IH SCH ×4 (01:15→19:41)
--- NOTE | 2018-07-13 08:11 | CON ---
DATE: 07/12/2018 HISTORY OF PRESENT ILLNESS: The patient is a 67-year-old male who is in the [facility] for HIV and I was asked to see him in consultation to rule out any retinopathy. PHYSICAL EXAMINATION: EYES: Visual acuity was 20/100 in each eye. Cornea exam was normal. Lens exam showed dense posterior subcapsular cataracts in both eyes. Fundus exam was normal. ASSESSMENT AND PLAN: My assessment is that the patient has bilateral cataracts but no retinopathy. He should be seen by his private supervisor [employer] when discharged to address the cataracts. Liang Hadley MD
--- NOTE | 2018-07-13 10:19 | CP.PCM.PN ---
Subjective - Date & Time of Evaluation Date of Evaluation: 07/13/18 Time of Evaluation: 10:18 - Subjective Subjective: Patient is more awake Trying to communicate Vital signs noted stable Objective - Vital Signs/Intake and Output Vital Signs (last 24 hours): Temp Pulse Resp BP Pulse Ox 97.5 F L 89 20 154/94 H 97 07/13/18 08:15 07/13/18 08:15 07/13/18 08:15 07/13/18 08:15 07/13/18 08:15 - Medications Medications: Current Medications Acetaminophen (Tylenol 325mg Tab) 650 mg PO Q4 PRN PRN Reason: Fever >100.4 F Last Admin: 06/25/18 21:40 Dose: 650 mg Acetaminophen (Tylenol 650 Mg Supp) 650 mg [place] Q6 PRN PRN Reason: Fever >100.4 F Last Admin: 06/20/18 02:30 Dose: 650 mg Acetylcysteine (Mucomyst 10% 4ml) 4 ml IH RQ6 RIMA Last Admin: 07/13/18 07:24 Dose: 4 ml Albuterol/Ipratropium (Duoneb 3 Mg/0.5 Mg (3 Ml) Ud) 3 ml INH RQ6 PRN PRN Reason: Shortness of Breath Last Admin: 07/13/18 07:24 Dose: 3 ml Amlodipine Besylate (Norvasc) 5 mg PO DAILY [facility] Last Admin: 07/13/18 08:47 Dose: 5 mg Dimethicone (Proshield Plus Skin Protectant) 1 applic TOP Q8 [facility] Last Admin: 07/13/18 08:48 Dose: 1 applic Enoxaparin Sodium (Lovenox) 30 mg SC DAILY [facility]; Protocol Last Admin: 06/17/18 09:20 Dose: 30 mg Insulin Human Lispro (Humalog) 0 units SC ACHS [facility]; Protocol Lamivudine (Epivir) 300 mg PO DAILY [facility]; Protocol Last Admin: 07/13/18 08:44 Dose: 300 mg Methylprednisolone (Medrol) 8 mg PO DAILY [facility] Last Admin: 07/13/18 08:47 Dose: 8 mg Metoprolol Tartrate (Lopressor) 50 mg PO Q12 [facility] Last Admin: 07/13/18 08:53 Dose: 50 mg Nystatin (Nystop Topical Powder) 1 applic TOP TID [facility] Last Admin: 07/13/18 08:48 Dose: 1 applic Ondansetron HCl (Zofran Inj) 4 mg IVP Q4 PRN PRN Reason: Nausea/Vomiting Last Admin: 07/05/18 21:16 Dose: 4 mg Phenylephrine HCl (Phenylephrine Opht 2.5% Soln) 1 drop OU PRN PRN PRN Reason: dilate pupils Last Admin: 07/12/18 07:09 Dose: 1 drop Tenofovir Disoproxil Fumarate (Viread) 300 mg PO DAILY [facility]; Protocol Last Admin: 07/13/18 08:44 Dose: 300 mg Trimethoprim/Sulfamethoxazole (Sulfatrim Pediatric Susp) 20 ml PO Q24H [facility]; Protocol Last Admin: 07/12/18 16:40 Dose: 20 ml Tropicamide (Mydriacyl 1% Opht Soln 15ml) 1 drop OU PRN PRN PRN Reason: dilate pupils Last Admin: 07/12/18 07:10 Dose: 1 drop Valganciclovir (Valcyte) 900 mg PO BID [facility] Last Admin: 07/13/18 08:45 Dose: 900 mg - Labs Labs: 07/11/18 06:00 07/11/18 06:00 PT 10.8 Seconds (9.8-13.1) 07/03/18 08:10 INR 1.0 07/03/18 08:10 APTT 25.9 Seconds (25.6-37.1) 07/03/18 08:10 - Constitutional Appears: No Acute Distress - Eye Exam Eye Exam: Conjunctival injection - ENT Exam ENT Exam: Mucous Membranes Moist - Neck Exam Neck Exam: absent: Lymphadenopathy - Respiratory Exam Respiratory Exam: NORMAL BREATHING PATTERN. absent: Chest Wall Tenderness - Cardiovascular Exam Cardiovascular Exam: absent: Gallop, JVD, Rubs - GI/Abdominal Exam GI & Abdominal Exam: Soft - Extremities Exam Extremities Exam: absent: Calf Tenderness - Back Exam Back Exam: absent: CVA tenderness (L), CVA tenderness (R) - Neurological Exam Neurological Exam: Awake - Skin Skin Exam: absent: Cyanosis Assessment and Plan (1) Acute renal failure Assessment & Plan: HUGO improving serum creatinine 1.4 Sepsis Encephalopathy much better, more awake S/P Respiratory failure extubated Status post tracheostomy Hyponatremia corrected HIV/AIDS severe malnutritoon CMV viremia Recommendation Antibiotics as per primary team Considering GFR Status: Acute (2) HIV (human immunodeficiency virus infection) Status: Acute
--- NOTE | 2018-07-13 13:34 | CP.PCM.PN ---
Subjective - Date & Time of Evaluation Date of Evaluation: 07/13/18 Time of Evaluation: 08:00 - Subjective Subjective: awake alert oob to chair Objective - Vital Signs/Intake and Output Vital Signs (last 24 hours): Temp Pulse Resp BP Pulse Ox 97.5 F L 89 20 154/94 H 97 07/13/18 08:15 07/13/18 08:15 07/13/18 08:15 07/13/18 08:15 07/13/18 08:15 - Medications Medications: Current Medications Acetaminophen (Tylenol 325mg Tab) 650 mg PO Q4 PRN PRN Reason: Fever >100.4 F Last Admin: 06/25/18 21:40 Dose: 650 mg Acetaminophen (Tylenol 650 Mg Supp) 650 mg [place] Q6 PRN PRN Reason: Fever >100.4 F Last Admin: 06/20/18 02:30 Dose: 650 mg Acetylcysteine (Mucomyst 10% 4ml) 4 ml IH RQ6 RIMA Last Admin: 07/13/18 07:24 Dose: 4 ml Albuterol/Ipratropium (Duoneb 3 Mg/0.5 Mg (3 Ml) Ud) 3 ml INH RQ6 PRN PRN Reason: Shortness of Breath Last Admin: 07/13/18 07:24 Dose: 3 ml Amlodipine Besylate (Norvasc) 5 mg PO DAILY [facility] Last Admin: 07/13/18 08:47 Dose: 5 mg Dimethicone (Proshield Plus Skin Protectant) 1 applic TOP Q8 [facility] Last Admin: 07/13/18 08:48 Dose: 1 applic Enoxaparin Sodium (Lovenox) 30 mg SC DAILY [facility]; Protocol Last Admin: 06/17/18 09:20 Dose: 30 mg Insulin Human Lispro (Humalog) 0 units SC ACHS [facility]; Protocol Last Admin: 07/13/18 12:51 Dose: 1 units Lamivudine (Epivir) 300 mg PO DAILY [facility]; Protocol Last Admin: 07/13/18 08:44 Dose: 300 mg Methylprednisolone (Medrol) 8 mg PO DAILY [facility] Last Admin: 07/13/18 08:47 Dose: 8 mg Metoprolol Tartrate (Lopressor) 50 mg PO Q12 [facility] Last Admin: 07/13/18 08:53 Dose: 50 mg Nystatin (Nystop Topical Powder) 1 applic TOP TID [facility] Last Admin: 07/13/18 12:43 Dose: 1 applic Ondansetron HCl (Zofran Inj) 4 mg IVP Q4 PRN PRN Reason: Nausea/Vomiting Last Admin: 07/05/18 21:16 Dose: 4 mg Phenylephrine HCl (Phenylephrine Opht 2.5% Soln) 1 drop OU PRN PRN PRN Reason: dilate pupils Last Admin: 07/12/18 07:09 Dose: 1 drop Tenofovir Disoproxil Fumarate (Viread) 300 mg PO DAILY [facility]; Protocol Last Admin: 07/13/18 08:44 Dose: 300 mg Trimethoprim/Sulfamethoxazole (Sulfatrim Pediatric Susp) 20 ml PO Q24H [facility]; Protocol Last Admin: 07/12/18 16:40 Dose: 20 ml Tropicamide (Mydriacyl 1% Opht Soln 15ml) 1 drop OU PRN PRN PRN Reason: dilate pupils Last Admin: 07/12/18 07:10 Dose: 1 drop Valganciclovir (Valcyte) 900 mg PO BID [facility] Last Admin: 07/13/18 08:45 Dose: 900 mg - Labs Labs: 07/11/18 06:00 07/11/18 06:00 PT 10.8 Seconds (9.8-13.1) 07/03/18 08:10 INR 1.0 07/03/18 08:10 APTT 25.9 Seconds (25.6-37.1) 07/03/18 08:10 - Constitutional Appears: Non-toxic, Chronically Ill - Head Exam Head Exam: NORMOCEPHALIC - Eye Exam Eye Exam: absent: Scleral icterus - ENT Exam ENT Exam: Mucous Membranes Dry - Neck Exam Neck Exam: absent: Lymphadenopathy - Respiratory Exam Respiratory Exam: Decreased Breath Sounds - Cardiovascular Exam Cardiovascular Exam: REGULAR RHYTHM - GI/Abdominal Exam GI & Abdominal Exam: Distended, Soft. absent: Tenderness - Rectal Exam Rectal Exam: Deferred - Exam Exam: NORMAL INSPECTION - Extremities Exam Extremities Exam: absent: Pedal Edema - Back Exam Back Exam: absent: CVA tenderness (L), CVA tenderness (R) - Neurological Exam Neurological Exam: Alert, Awake, CN II-XII Intact - Psychiatric Exam Psychiatric exam: Normal Mood - Skin Skin Exam: Dry Assessment and Plan (1) Acute renal failure Status: Acute (2) Altered mental status Status: Acute (3) Diabetes mellitus Status: Acute (4) HIV (human immunodeficiency virus infection) Status: Acute (5) Pneumonia Status: Acute (6) Encephalopathy Status: Acute (7) CMV (cytomegalovirus) infection Status: Acute - Assessment and Plan (Free Text) 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
--- NOTE | 2018-07-13 14:38 | CP.PCM.PN ---
Subjective - Date & Time of Evaluation Date of Evaluation: 07/13/18 Time of Evaluation: 13:30 - Subjective Subjective: F/U S/P Tracheostomy. Pt awake, calm now, no A/D, at times refusing to use Trach collar. Objective - Vital Signs/Intake and Output Vital Signs (last 24 hours): Temp Pulse Resp BP Pulse Ox 97.5 F L 89 20 154/94 H 97 07/13/18 08:15 07/13/18 08:15 07/13/18 08:15 07/13/18 08:15 07/13/18 08:15 - Medications Medications: Current Medications Acetaminophen (Tylenol 650 Mg Supp) 650 mg [place] Q6 PRN PRN Reason: Fever >100.4 F Last Admin: 06/20/18 02:30 Dose: 650 mg Acetylcysteine (Mucomyst 10% 4ml) 4 ml IH RQ6 [facility] Last Admin: 07/13/18 13:40 Dose: 4 ml Albuterol/Ipratropium (Duoneb 3 Mg/0.5 Mg (3 Ml) Ud) 3 ml INH RQ6 PRN PRN Reason: Shortness of Breath Last Admin: 07/13/18 13:40 Dose: 3 ml Amlodipine Besylate (Norvasc) 5 mg PO DAILY [facility] Last Admin: 07/13/18 08:47 Dose: 5 mg Dimethicone (Proshield Plus Skin Protectant) 1 applic TOP Q8 [facility] Last Admin: 07/13/18 08:48 Dose: 1 applic Enoxaparin Sodium (Lovenox) 30 mg SC DAILY [facility]; Protocol Last Admin: 06/17/18 09:20 Dose: 30 mg Insulin Human Lispro (Humalog) 0 units SC ACHS [facility]; Protocol Last Admin: 07/13/18 12:51 Dose: 1 units Lamivudine (Epivir) 300 mg PO DAILY [facility]; Protocol Stop: 06/06/19 17:00 Last Admin: 07/13/18 14:25 Dose: Not Given Methylprednisolone (Medrol) 4 mg PO DAILY [facility] Metoprolol Tartrate (Lopressor) 50 mg PO Q12 [facility] Last Admin: 07/13/18 08:53 Dose: 50 mg Nystatin (Nystop Topical Powder) 1 applic TOP TID [facility] Last Admin: 07/13/18 12:43 Dose: 1 applic Ondansetron HCl (Zofran Inj) 4 mg IVP Q4 PRN PRN Reason: Nausea/Vomiting Last Admin: 07/05/18 21:16 Dose: 4 mg Phenylephrine HCl (Phenylephrine Opht 2.5% Soln) 1 drop OU PRN PRN PRN Reason: dilate pupils Last Admin: 07/12/18 07:09 Dose: 1 drop Raltegravir (Isentress) 400 mg PO BID [facility]; Protocol Stop: 08/05/23 17:00 Tenofovir Disoproxil Fumarate (Viread) 300 mg PO DAILY [facility]; Protocol Stop: 06/07/19 17:00 Last Admin: 07/13/18 14:28 Dose: Not Given Trimethoprim/Sulfamethoxazole (Sulfatrim Pediatric Susp) 20 ml PO Q24H [facility]; Protocol Last Admin: 07/12/18 16:40 Dose: 20 ml Tropicamide (Mydriacyl 1% Opht Soln 15ml) 1 drop OU PRN PRN PRN Reason: dilate pupils Last Admin: 07/12/18 07:10 Dose: 1 drop Valganciclovir (Valcyte) 900 mg PO BID [facility] Last Admin: 07/13/18 08:45 Dose: 900 mg - Labs Labs: 07/11/18 06:00 07/11/18 06:00 PT 10.8 Seconds (9.8-13.1) 07/03/18 08:10 INR 1.0 07/03/18 08:10 APTT 25.9 Seconds (25.6-37.1) 07/03/18 08:10 - Constitutional Appears: No Acute Distress, Chronically Ill - Head Exam Head Exam: NORMAL INSPECTION - Eye Exam Eye Exam: PERRL - ENT Exam ENT Exam: Normal Exam - Neck Exam Additional comments: Tracheostomy, Trach collar - Respiratory Exam Respiratory Exam: Decreased Breath Sounds (at bases) - Cardiovascular Exam Cardiovascular Exam: REGULAR RHYTHM - GI/Abdominal Exam GI & Abdominal Exam: Soft, Normal Bowel Sounds - Extremities Exam Additional comments: Edema - Neurological Exam Neurological Exam: Alert, Awake Additional comments: Able to follow commands, attempt to talk, moving extremities on commands. - Skin Skin Exam: Warm Assessment and Plan (1) Respiratory failure Status: Resolved (2) Tracheostomy status Status: Acute (3) Altered mental status Status: Acute (4) HIV (human immunodeficiency virus infection) Status: Acute (5) Fever Status: Resolved (6) Pneumonia Status: Resolved (7) Severe sepsis Status: Resolved (8) Acute renal failure Status: Acute (9) Diabetes mellitus Status: Acute - Assessment and Plan (Free Text) Plan: Continue on HAART, Duoneb, Medrol and rest of Tx.
[2018-07-13] MEDS: Tmp-Smz 200-40mg/5 ml Oral Sus(120 ml) PO SCH (16:06)
[2018-07-14] MEDS: Acetylcysteine 10% 4 ML IH SCH ×4 (00:59→19:03)
[2018-07-14] MEDS: Albuterol-Ipratrop 3 mg / 0.5 (3 ml) UD INH PRN ×4 (00:59→19:03)
[2018-07-14] MEDS: Proshield Plus GEL TOP SCH ×3 (01:29→16:32)
[2018-07-14] MEDS: Insulin Lispro (humaLOG) 100 Units/ml Inj SC SCH ×4 (07:06→21:29)
[2018-07-14 07:39] LABS: HEMOGLOBIN 7.8 g/dL (12.0-18.0); MEAN CELL VOLUME 89.7 fl (80.0-94.0); MEAN CORPUSCULAR HEMOGLOBIN 28.9 pg (27.0-31.0); MEAN CORPUSCULAR HGB CONC 32.2 g/dL (33.0-37.0); RBC 2.7 Mil/uL (4.40-5.90); RED CELL DISTRIBUTION WIDTH 21.4 % (11.5-14.5); WHITE BLOOD COUNT 3.9 K/uL (4.8-10.8)
[2018-07-14 08:16] LABS: CALCIUM 9.4 mg/dL (8.4-10.2)
--- NOTE | 2018-07-14 15:57 | CP.PCM.PN ---
Subjective - Date & Time of Evaluation Date of Evaluation: 07/14/18 Time of Evaluation: 13:50 - Subjective Subjective: S/P Tracheostomy alert, attempt to talk, follows commands Objective - Vital Signs/Intake and Output Vital Signs (last 24 hours): Temp Pulse Resp BP Pulse Ox 98.8 F 84 20 151/78 H 94 L 07/14/18 09:00 07/14/18 10:02 07/14/18 09:00 07/14/18 10:02 07/14/18 09:00 - Medications Medications: Current Medications Acetaminophen (Tylenol 650 Mg Supp) 650 mg [place] Q6 PRN PRN Reason: Fever >100.4 F Last Admin: 06/20/18 02:30 Dose: 650 mg Acetylcysteine (Mucomyst 10% 4ml) 4 ml IH RQ6 [facility] Last Admin: 07/14/18 13:17 Dose: 4 ml Albuterol/Ipratropium (Duoneb 3 Mg/0.5 Mg (3 Ml) Ud) 3 ml INH RQ6 PRN PRN Reason: Shortness of Breath Last Admin: 07/14/18 13:17 Dose: 3 ml Amlodipine Besylate (Norvasc) 5 mg PO DAILY [facility] Last Admin: 07/14/18 10:02 Dose: 5 mg Dimethicone (Proshield Plus Skin Protectant) 1 applic TOP Q8 [facility] Last Admin: 07/14/18 10:08 Dose: 1 applic Enoxaparin Sodium (Lovenox) 30 mg SC DAILY [facility]; Protocol Last Admin: 06/17/18 09:20 Dose: 30 mg Insulin Human Lispro (Humalog) [address] [facility]; Protocol Last Admin: 07/14/18 12:30 Dose: 3 units Lamivudine (Epivir) 300 mg PO DAILY [facility]; Protocol Stop: 06/06/19 17:00 Last Admin: 07/14/18 10:03 Dose: 300 mg Methylprednisolone (Medrol) 4 mg PO DAILY [facility] Last Admin: 07/14/18 10:06 Dose: 4 mg Metoprolol Tartrate (Lopressor) 50 mg PO Q12 [facility] Last Admin: 07/14/18 10:02 Dose: 50 mg Nystatin (Nystop Topical Powder) 1 applic TOP TID [facility] Last Admin: 07/14/18 12:32 Dose: 1 applic Ondansetron HCl (Zofran Inj) 4 mg IVP Q4 PRN PRN Reason: Nausea/Vomiting Last Admin: 07/05/18 21:16 Dose: 4 mg Phenylephrine HCl (Phenylephrine Opht 2.5% Soln) 1 drop OU PRN PRN PRN Reason: dilate pupils Last Admin: 07/12/18 07:09 Dose: 1 drop Raltegravir (Isentress) 400 mg PO BID [facility]; Protocol Stop: 08/05/23 17:00 Last Admin: 07/14/18 10:05 Dose: 400 mg Tenofovir Disoproxil Fumarate (Viread) 300 mg PO DAILY [facility]; Protocol Stop: 06/07/19 17:00 Last Admin: 07/14/18 10:01 Dose: 300 mg Tropicamide (Mydriacyl 1% Opht Soln 15ml) 1 drop OU PRN PRN PRN Reason: dilate pupils Last Admin: 07/12/18 07:10 Dose: 1 drop Valganciclovir (Valcyte) 900 mg PO BID [facility] Last Admin: 07/14/18 10:04 Dose: 900 mg - Labs Labs: 07/14/18 05:30 07/14/18 05:30 PT 10.8 Seconds (9.8-13.1) 07/03/18 08:10 INR 1.0 07/03/18 08:10 APTT 25.9 Seconds (25.6-37.1) 07/03/18 08:10 - Constitutional Appears: Chronically Ill - Head Exam Head Exam: NORMAL INSPECTION - Eye Exam Eye Exam: PERRL - ENT Exam ENT Exam: Normal Exam - Neck Exam Additional comments: Trach Collar, Tracheostomy - Respiratory Exam Respiratory Exam: Decreased Breath Sounds (at bases) - Cardiovascular Exam Cardiovascular Exam: REGULAR RHYTHM - GI/Abdominal Exam GI & Abdominal Exam: Soft, Normal Bowel Sounds - Rectal Exam Rectal Exam: NORMAL INSPECTION - Extremities Exam Additional comments: trace edema L/E - Neurological Exam Neurological Exam: Alert, Awake Additional comments: Able to follows commands, moves all extremites - Skin Skin Exam: Warm Assessment and Plan (1) Respiratory failure Status: Resolved (2) Tracheostomy status Status: Acute (3) Altered mental status Status: Acute (4) HIV (human immunodeficiency virus infection) Status: Acute (5) Fever Status: Resolved (6) Pneumonia Status: Resolved (7) Severe sepsis Status: Resolved (8) Acute renal failure Status: Acute (9) Diabetes mellitus Status: Acute - Assessment and Plan (Free Text) Plan: continue HAART, Lexa Parker, PT
[2018-07-15] MEDS: Proshield Plus GEL TOP SCH ×3 (01:00→16:59)
[2018-07-15] MEDS: Acetylcysteine 10% 4 ML IH SCH ×4 (01:06→19:01)
[2018-07-15] MEDS: Albuterol-Ipratrop 3 mg / 0.5 (3 ml) UD INH PRN ×4 (01:06→19:01)
[2018-07-15] MEDS: Insulin Lispro (humaLOG) 100 Units/ml Inj SC SCH ×4 (06:53→21:54)
--- NOTE | 2018-07-15 12:48 | CP.PCM.PN ---
Subjective - Date & Time of Evaluation Date of Evaluation: 07/15/18 Time of Evaluation: 09:00 - Subjective Subjective: no fever awake responsive HAART rx and Valcyte renewed Objective - Vital Signs/Intake and Output Vital Signs (last 24 hours): Temp Pulse Resp BP Pulse Ox 97.9 F 73 20 136/90 100 07/15/18 08:42 07/15/18 08:42 07/15/18 08:42 07/15/18 08:42 07/15/18 08:42 - Medications Medications: Current Medications Acetaminophen (Tylenol 650 Mg Supp) 650 mg [place] Q6 PRN PRN Reason: Fever >100.4 F Last Admin: 06/20/18 02:30 Dose: 650 mg Acetylcysteine (Mucomyst 10% 4ml) 4 ml IH RQ6 [facility] Last Admin: 07/15/18 07:45 Dose: 4 ml Albuterol/Ipratropium (Duoneb 3 Mg/0.5 Mg (3 Ml) Ud) 3 ml INH RQ6 PRN PRN Reason: Shortness of Breath Last Admin: 07/15/18 07:45 Dose: 3 ml Amlodipine Besylate (Norvasc) 5 mg PO DAILY [facility] Last Admin: 07/15/18 08:00 Dose: 5 mg Dimethicone (Proshield Plus Skin Protectant) 1 applic TOP Q8 [facility] Last Admin: 07/15/18 08:01 Dose: 1 applic Enoxaparin Sodium (Lovenox) 30 mg SC DAILY [facility]; Protocol Last Admin: 06/17/18 09:20 Dose: 30 mg Insulin Human Lispro (Humalog) 0 units SC ACHS [facility]; Protocol Last Admin: 07/15/18 12:21 Dose: 4 units Lamivudine (Epivir) 300 mg PO DAILY [facility]; Protocol Stop: 06/06/19 17:00 Last Admin: 07/15/18 08:00 Dose: 300 mg Methylprednisolone (Medrol) 4 mg PO DAILY [facility] Last Admin: 07/15/18 07:59 Dose: 4 mg Metoprolol Tartrate (Lopressor) 50 mg PO Q12 [facility] Last Admin: 07/15/18 08:02 Dose: 50 mg Nystatin (Nystop Topical Powder) 1 applic TOP TID [facility] Last Admin: 07/15/18 12:21 Dose: 1 applic Ondansetron HCl (Zofran Inj) 4 mg IVP Q4 PRN PRN Reason: Nausea/Vomiting Last Admin: 07/05/18 21:16 Dose: 4 mg Phenylephrine HCl (Phenylephrine Opht 2.5% Soln) 1 drop OU PRN PRN PRN Reason: dilate pupils Last Admin: 07/12/18 07:09 Dose: 1 drop Raltegravir (Isentress) 400 mg PO BID [facility]; Protocol Stop: 08/05/23 17:00 Last Admin: 07/15/18 08:00 Dose: 400 mg Tenofovir Disoproxil Fumarate (Viread) 300 mg PO DAILY [facility]; Protocol Stop: 06/07/19 17:00 Last Admin: 07/15/18 08:00 Dose: 300 mg Tropicamide (Mydriacyl 1% Opht Soln 15ml) 1 drop OU PRN PRN PRN Reason: dilate pupils Last Admin: 07/12/18 07:10 Dose: 1 drop Valganciclovir (Valcyte) 900 mg PO BID [facility] Last Admin: 07/15/18 07:59 Dose: 900 mg - Labs Labs: 07/14/18 05:30 07/14/18 05:30 PT 10.8 Seconds (9.8-13.1) 07/03/18 08:10 INR 1.0 07/03/18 08:10 APTT 25.9 Seconds (25.6-37.1) 07/03/18 08:10 - Constitutional Appears: Non-toxic, Chronically Ill - Head Exam Head Exam: NORMOCEPHALIC - Eye Exam Eye Exam: absent: Scleral icterus - ENT Exam ENT Exam: Mucous Membranes Dry - Neck Exam Neck Exam: absent: Lymphadenopathy - Respiratory Exam Respiratory Exam: Decreased Breath Sounds - Cardiovascular Exam Cardiovascular Exam: REGULAR RHYTHM - GI/Abdominal Exam GI & Abdominal Exam: Distended - Rectal Exam Rectal Exam: Deferred - Exam Exam: NORMAL INSPECTION - Extremities Exam Extremities Exam: absent: Pedal Edema - Back Exam Back Exam: absent: CVA tenderness (L), CVA tenderness (R) - Neurological Exam Neurological Exam: Alert, Awake Assessment and Plan (1) Acute renal failure Status: Acute (2) Altered mental status Status: Acute (3) Diabetes mellitus Status: Acute (4) HIV (human immunodeficiency virus infection) Status: Acute (5) Pneumonia Status: Acute (6) Encephalopathy Status: Acute (7) CMV (cytomegalovirus) infection Status: Acute - Assessment and Plan (Free Text) Assessment: HAART rx and Valcyte renewed 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
--- NOTE | 2018-07-15 17:11 | CP.PCM.PN ---
Subjective - Date & Time of Evaluation Date of Evaluation: 07/15/18 Time of Evaluation: 13:20 - Subjective Subjective: F/U S/P Tracheostomy. alert, attempt to talk, smiling, follows commands, Patient's family at bedside Objective - Vital Signs/Intake and Output Vital Signs (last 24 hours): Temp Pulse Resp BP Pulse Ox 97.9 F 73 20 136/90 100 07/15/18 08:42 07/15/18 08:42 07/15/18 08:42 07/15/18 08:42 07/15/18 08:42 - Medications Medications: Current Medications Acetaminophen (Tylenol 650 Mg Supp) 650 mg [place] Q6 PRN PRN Reason: Fever >100.4 F Last Admin: 06/20/18 02:30 Dose: 650 mg Acetylcysteine (Mucomyst 10% 4ml) 4 ml IH RQ6 [facility] Last Admin: 07/15/18 13:03 Dose: 4 ml Albuterol/Ipratropium (Duoneb 3 Mg/0.5 Mg (3 Ml) Ud) 3 ml INH RQ6 PRN PRN Reason: Shortness of Breath Last Admin: 07/15/18 13:04 Dose: 3 ml Amlodipine Besylate (Norvasc) 5 mg PO DAILY [facility] Last Admin: 07/15/18 08:00 Dose: 5 mg Dimethicone (Proshield Plus Skin Protectant) 1 applic TOP Q8 [facility] Last Admin: 07/15/18 16:59 Dose: 1 applic Enoxaparin Sodium (Lovenox) 30 mg SC DAILY [facility]; Protocol Last Admin: 06/17/18 09:20 Dose: 30 mg Insulin Human Lispro (Humalog) 0 units SC ACHS [facility]; Protocol Last Admin: 07/15/18 17:04 Dose: 2 units Lamivudine (Epivir) 300 mg PO DAILY [facility]; Protocol Stop: 06/06/19 17:00 Last Admin: 07/15/18 08:00 Dose: 300 mg Methylprednisolone (Medrol) 4 mg PO DAILY [facility] Last Admin: 07/15/18 07:59 Dose: 4 mg Metoprolol Tartrate (Lopressor) 50 mg PO Q12 [facility] Last Admin: 07/15/18 08:02 Dose: 50 mg Nystatin (Nystop Topical Powder) 1 applic TOP TID [facility] Last Admin: 07/15/18 16:59 Dose: 1 applic Ondansetron HCl (Zofran Inj) 4 mg IVP Q4 PRN PRN Reason: Nausea/Vomiting Last Admin: 07/05/18 21:16 Dose: 4 mg Phenylephrine HCl (Phenylephrine Opht 2.5% Soln) 1 drop OU PRN PRN PRN Reason: dilate pupils Last Admin: 07/12/18 07:09 Dose: 1 drop Raltegravir (Isentress) 400 mg PO BID [facility]; Protocol Stop: 08/05/23 17:00 Last Admin: 07/15/18 17:00 Dose: 400 mg Tenofovir Disoproxil Fumarate (Viread) 300 mg PO DAILY [facility]; Protocol Stop: 06/07/19 17:00 Last Admin: 07/15/18 08:00 Dose: 300 mg Tropicamide (Mydriacyl 1% Opht Soln 15ml) 1 drop OU PRN PRN PRN Reason: dilate pupils Last Admin: 07/12/18 07:10 Dose: 1 drop Valganciclovir (Valcyte) 450 mg PO BID [facility] Stop: 08/31/18 08:00 Last Admin: 07/15/18 17:00 Dose: 450 mg - Labs Labs: 07/14/18 05:30 07/14/18 05:30 PT 10.8 Seconds (9.8-13.1) 07/03/18 08:10 INR 1.0 07/03/18 08:10 APTT 25.9 Seconds (25.6-37.1) 07/03/18 08:10 - Constitutional Appears: Chronically Ill - Head Exam Head Exam: NORMAL INSPECTION - Eye Exam Eye Exam: PERRL - ENT Exam ENT Exam: Normal Exam - Neck Exam Additional comments: Tracheostomy. Trach Collar - Respiratory Exam Respiratory Exam: Decreased Breath Sounds (at abses) - Cardiovascular Exam Cardiovascular Exam: REGULAR RHYTHM - GI/Abdominal Exam GI & Abdominal Exam: Soft, Normal Bowel Sounds - Extremities Exam Additional comments: Edema - Neurological Exam Neurological Exam: Alert, Awake Additional comments: Able to follows command, moving extremities on command. - Skin Skin Exam: Warm Assessment and Plan (1) Respiratory failure Status: Resolved (2) Tracheostomy status Status: Acute (3) Altered mental status Status: Acute (4) HIV (human immunodeficiency virus infection) Status: Acute (5) Fever Status: Resolved (6) Pneumonia Status: Resolved (7) Severe sepsis Status: Resolved (8) Acute renal failure Status: Acute (9) Diabetes mellitus Status: Acute (10) Anemia Status: Chronic - Assessment and Plan (Free Text) Plan: continue HAART, DuoNeb , Mucomyst, Proshield, f/u Hgb, PT
[2018-07-16] MEDS: Albuterol-Ipratrop 3 mg / 0.5 (3 ml) UD INH PRN ×4 (01:30→19:50)
[2018-07-16] MEDS: Acetylcysteine 10% 4 ML IH SCH ×4 (01:30→19:50)
[2018-07-16] MEDS: Proshield Plus GEL TOP SCH ×3 (01:36→16:26)
[2018-07-16] MEDS: Insulin Lispro (humaLOG) 100 Units/ml Inj SC SCH ×4 (06:52→21:59)
[2018-07-16 08:09] LABS: HEMOGLOBIN 8.1 g/dL (12.0-18.0); MEAN CELL VOLUME 89.4 fl (80.0-94.0); MEAN CORPUSCULAR HEMOGLOBIN 29.2 pg (27.0-31.0); MEAN CORPUSCULAR HGB CONC 32.6 g/dL (33.0-37.0); RBC 2.78 Mil/uL (4.40-5.90); WHITE BLOOD COUNT 4.3 K/uL (4.8-10.8)
[2018-07-16 08:21] LABS: ALBUMIN 3.2 g/dL (3.5-5.0); CALCIUM 9.4 mg/dL (8.4-10.2)
--- NOTE | 2018-07-16 10:41 | CP.PCM.PN ---
Subjective - Date & Time of Evaluation Date of Evaluation: 07/16/18 Time of Evaluation: 09:00 - Subjective Subjective: HUGO ? prerenal Not eating or drinking much Dr Higgins on board meds adjusted Objective - Vital Signs/Intake and Output Vital Signs (last 24 hours): Temp Pulse Resp BP Pulse Ox 98.0 F 70 19 145/81 98 07/16/18 07:54 07/16/18 10:03 07/16/18 07:54 07/16/18 10:03 07/16/18 07:54 - Medications Medications: Current Medications Acetaminophen (Tylenol 650 Mg Supp) 650 mg [place] Q6 PRN PRN Reason: Fever >100.4 F Last Admin: 06/20/18 02:30 Dose: 650 mg Acetylcysteine (Mucomyst 10% 4ml) 4 ml IH RQ6 [facility] Last Admin: 07/16/18 07:54 Dose: 4 ml Albuterol/Ipratropium (Duoneb 3 Mg/0.5 Mg (3 Ml) Ud) 3 ml INH RQ6 PRN PRN Reason: Shortness of Breath Last Admin: 07/16/18 07:54 Dose: 3 ml Amlodipine Besylate (Norvasc) 5 mg PO DAILY [facility] Last Admin: 07/16/18 09:56 Dose: 5 mg Dimethicone (Proshield Plus Skin Protectant) 1 applic TOP Q8 [facility] Last Admin: 07/16/18 09:59 Dose: 1 applic Enoxaparin Sodium (Lovenox) 30 mg SC DAILY [facility]; Protocol Last Admin: 06/17/18 09:20 Dose: 30 mg Insulin Human Lispro (Humalog) 0 units SC [facility]; Protocol Last Admin: 07/16/18 06:52 Dose: Not Given Lamivudine (Epivir) 300 mg PO Q48H [facility]; Protocol Methylprednisolone (Medrol) 4 mg PO DAILY [facility] Last Admin: 07/16/18 09:57 Dose: 4 mg Metoprolol Tartrate (Lopressor) 50 mg PO Q12 [facility] Last Admin: 07/16/18 10:03 Dose: 50 mg Nystatin (Nystop Topical Powder) 1 applic TOP TID [facility] Last Admin: 07/16/18 09:55 Dose: 1 applic Ondansetron HCl (Zofran Inj) 4 mg IVP Q4 PRN PRN Reason: Nausea/Vomiting Last Admin: 07/05/18 21:16 Dose: 4 mg Phenylephrine HCl (Phenylephrine Opht 2.5% Soln) 1 drop OU PRN PRN PRN Reason: dilate pupils Last Admin: 07/12/18 07:09 Dose: 1 drop Raltegravir (Isentress) 400 mg PO BID [facility]; Protocol Stop: 08/05/23 17:00 Last Admin: 07/16/18 09:57 Dose: 400 mg Tenofovir Disoproxil Fumarate (Viread) 300 mg PO Q48H [facility]; Protocol Tropicamide (Mydriacyl 1% Opht Soln 15ml) 1 drop OU PRN PRN PRN Reason: dilate pupils Last Admin: 07/12/18 07:10 Dose: 1 drop Valganciclovir (Valcyte) 450 mg PO BID [facility] Stop: 08/31/18 08:00 Last Admin: 07/16/18 09:57 Dose: 450 mg - Labs Labs: 07/16/18 07:47 07/16/18 07:47 PT 10.8 Seconds (9.8-13.1) 07/03/18 08:10 INR 1.0 07/03/18 08:10 APTT 25.9 Seconds (25.6-37.1) 07/03/18 08:10 Assessment and Plan (1) Acute renal failure Status: Acute (2) Altered mental status Status: Acute (3) Diabetes mellitus Status: Acute (4) HIV (human immunodeficiency virus infection) Status: Acute (5) Pneumonia Status: Acute (6) Encephalopathy Status: Acute (7) CMV (cytomegalovirus) infection Status: Acute
--- NOTE | 2018-07-16 10:42 | CP.PCM.PN ---
Subjective - Date & Time of Evaluation Date of Evaluation: 07/16/18 Time of Evaluation: 10:42 - Subjective Subjective: Patient sitting up in bed Patient trying to communicate Vital signs noted stable Objective - Vital Signs/Intake and Output Vital Signs (last 24 hours): Temp Pulse Resp BP Pulse Ox 98.0 F 70 19 145/81 98 07/16/18 07:54 07/16/18 10:03 07/16/18 07:54 07/16/18 10:03 07/16/18 07:54 - Medications Medications: Current Medications Acetaminophen (Tylenol 650 Mg Supp) 650 mg [place] Q6 PRN PRN Reason: Fever >100.4 F Last Admin: 06/20/18 02:30 Dose: 650 mg Acetylcysteine (Mucomyst 10% 4ml) 4 ml IH RQ6 [facility] Last Admin: 07/16/18 07:54 Dose: 4 ml Albuterol/Ipratropium (Duoneb 3 Mg/0.5 Mg (3 Ml) Ud) 3 ml INH RQ6 PRN PRN Reason: Shortness of Breath Last Admin: 07/16/18 07:54 Dose: 3 ml Amlodipine Besylate (Norvasc) 5 mg PO DAILY [facility] Last Admin: 07/16/18 09:56 Dose: 5 mg Dimethicone (Proshield Plus Skin Protectant) 1 applic TOP Q8 [facility] Last Admin: 07/16/18 09:59 Dose: 1 applic Enoxaparin Sodium (Lovenox) 30 mg SC DAILY [facility]; Protocol Last Admin: 06/17/18 09:20 Dose: 30 mg Insulin Human Lispro (Humalog) 0 units SC ACHS [facility]; Protocol Last Admin: 07/16/18 06:52 Dose: Not Given Lamivudine (Epivir) 300 mg PO DAILY [facility]; Protocol Stop: 06/06/19 17:00 Last Admin: 07/16/18 09:55 Dose: 300 mg Methylprednisolone (Medrol) 4 mg PO DAILY [facility] Last Admin: 07/16/18 09:57 Dose: 4 mg Metoprolol Tartrate (Lopressor) 50 mg PO Q12 [facility] Last Admin: 07/16/18 10:03 Dose: 50 mg Nystatin (Nystop Topical Powder) 1 applic TOP TID [facility] Last Admin: 07/16/18 09:55 Dose: 1 applic Ondansetron HCl (Zofran Inj) 4 mg IVP Q4 PRN PRN Reason: Nausea/Vomiting Last Admin: 07/05/18 21:16 Dose: 4 mg Phenylephrine HCl (Phenylephrine Opht 2.5% Soln) 1 drop OU PRN PRN PRN Reason: dilate pupils Last Admin: 07/12/18 07:09 Dose: 1 drop Raltegravir (Isentress) 400 mg PO BID [facility]; Protocol Stop: 08/05/23 17:00 Last Admin: 07/16/18 09:57 Dose: 400 mg Tenofovir Disoproxil Fumarate (Viread) 300 mg PO Q48H [facility]; Protocol Tropicamide (Mydriacyl 1% Opht Soln 15ml) 1 drop OU PRN PRN PRN Reason: dilate pupils Last Admin: 07/12/18 07:10 Dose: 1 drop Valganciclovir (Valcyte) 450 mg PO BID [facility] Stop: 08/31/18 08:00 Last Admin: 07/16/18 09:57 Dose: 450 mg - Labs Labs: 07/16/18 07:47 07/16/18 07:47 PT 10.8 Seconds (9.8-13.1) 07/03/18 08:10 INR 1.0 07/03/18 08:10 APTT 25.9 Seconds (25.6-37.1) 07/03/18 08:10 - Constitutional Appears: No Acute Distress - Eye Exam Eye Exam: absent: Conjunctival injection - ENT Exam ENT Exam: Mucous Membranes Moist - Cardiovascular Exam Cardiovascular Exam: absent: Gallop, JVD, Rubs - GI/Abdominal Exam GI & Abdominal Exam: Soft, Normal Bowel Sounds - Extremities Exam Extremities Exam: absent: Calf Tenderness - Back Exam Back Exam: absent: CVA tenderness (L), CVA tenderness (R) - Neurological Exam Neurological Exam: Awake - Skin Skin Exam: absent: Cyanosis Assessment and Plan (1) Acute renal failure Assessment & Plan: HUGO patient developing acute kidney injury again serum creatinine rising Sepsis Encephalopathy much better, more awake S/P Respiratory failure extubated Status post tracheostomy Hyponatremia corrected HIV/AIDS severe malnutritoon CMV viremia Recommendation Worsening kidney function developing acute kidney injury medications reviewed with the nurse practitioner and need to be adjusted per GFR. She will be discussing with the infectious disease and pharmacy for adjustment Status: Acute (2) HIV (human immunodeficiency virus infection) Status: Acute
--- NOTE | 2018-07-16 14:47 | CP.PCM.PN ---
Subjective - Date & Time of Evaluation Date of Evaluation: 07/16/18 Time of Evaluation: 11:20 - Subjective Subjective: S/P Tracheostomy Pt awake, alert, trying to talk through the Tracheostomy , follows commands. Objective - Vital Signs/Intake and Output Vital Signs (last 24 hours): Temp Pulse Resp BP Pulse Ox 98.0 F 76 19 145/81 98 07/16/18 10:00 07/16/18 11:10 07/16/18 10:00 07/16/18 10:03 07/16/18 11:10 - Medications Medications: Current Medications Acetaminophen (Tylenol 650 Mg Supp) 650 mg [place] Q6 PRN PRN Reason: Fever >100.4 F Last Admin: 06/20/18 02:30 Dose: 650 mg Acetylcysteine (Mucomyst 10% 4ml) 4 ml IH RQ6 [facility] Last Admin: 07/16/18 13:29 Dose: 4 ml Albuterol/Ipratropium (Duoneb 3 Mg/0.5 Mg (3 Ml) Ud) 3 ml INH RQ6 PRN PRN Reason: Shortness of Breath Last Admin: 07/16/18 13:29 Dose: 3 ml Amlodipine Besylate (Norvasc) 5 mg PO DAILY [facility] Last Admin: 07/16/18 09:56 Dose: 5 mg Dimethicone (Proshield Plus Skin Protectant) 1 applic TOP Q8 [facility] Last Admin: 07/16/18 09:59 Dose: 1 applic Enoxaparin Sodium (Lovenox) 30 mg SC DAILY [facility]; Protocol Last Admin: 06/17/18 09:20 Dose: 30 mg Insulin Human Lispro (Humalog) 0 units SC ACHS [facility]; Protocol Last Admin: 07/16/18 06:52 Dose: Not Given Lamivudine (Epivir) 300 mg PO Q48H [facility]; Protocol Methylprednisolone (Medrol) 4 mg PO DAILY [facility] Last Admin: 07/16/18 09:57 Dose: 4 mg Metoprolol Tartrate (Lopressor) 50 mg PO Q12 [facility] Last Admin: 07/16/18 10:03 Dose: 50 mg Nystatin (Nystop Topical Powder) 1 applic TOP TID [facility] Last Admin: 07/16/18 09:55 Dose: 1 applic Ondansetron HCl (Zofran Inj) 4 mg IVP Q4 PRN PRN Reason: Nausea/Vomiting Last Admin: 07/05/18 21:16 Dose: 4 mg Phenylephrine HCl (Phenylephrine Opht 2.5% Soln) 1 drop OU PRN PRN PRN Reason: dilate pupils Last Admin: 07/12/18 07:09 Dose: 1 drop Raltegravir (Isentress) 400 mg PO BID [facility]; Protocol Stop: 08/05/23 17:00 Last Admin: 07/16/18 09:57 Dose: 400 mg Tenofovir Disoproxil Fumarate (Viread) 300 mg PO Q48H [facility]; Protocol Tropicamide (Mydriacyl 1% Opht Soln 15ml) 1 drop OU PRN PRN PRN Reason: dilate pupils Last Admin: 07/12/18 07:10 Dose: 1 drop Valganciclovir (Valcyte) 450 mg PO BID [facility] Stop: 08/31/18 08:00 Last Admin: 07/16/18 09:57 Dose: 450 mg - Labs Labs: 07/16/18 07:47 07/16/18 07:47 PT 10.8 Seconds (9.8-13.1) 07/03/18 08:10 INR 1.0 07/03/18 08:10 APTT 25.9 Seconds (25.6-37.1) 07/03/18 08:10 - Constitutional Appears: Chronically Ill - Head Exam Head Exam: NORMAL INSPECTION - Eye Exam Eye Exam: PERRL - ENT Exam ENT Exam: Normal Exam - Neck Exam Additional comments: Trach collar - Respiratory Exam Respiratory Exam: Decreased Breath Sounds (at bases), Rhonchi - Cardiovascular Exam Cardiovascular Exam: REGULAR RHYTHM - GI/Abdominal Exam GI & Abdominal Exam: Soft, Normal Bowel Sounds - Extremities Exam Additional comments: Edema - Neurological Exam Neurological Exam: Alert, Awake Additional comments: Follows commands, attempting to talk, moving extremities on commands. - Skin Skin Exam: Warm Assessment and Plan (1) Respiratory failure Status: Resolved (2) Tracheostomy status Status: Acute (3) Altered mental status Status: Acute (4) HIV (human immunodeficiency virus infection) Status: Acute (5) Fever Status: Resolved (6) Pneumonia Status: Resolved (7) Severe sepsis Status: Resolved (8) Acute renal failure Status: Acute (9) Diabetes mellitus Status: Acute (10) Anemia Status: Chronic - Assessment and Plan (Free Text) Plan: Continue Duoneb, Medrol and rest of Tx. BUN/Creat increased, Renal f/u appreciated, adjust medications
[2018-07-17] MEDS: Albuterol-Ipratrop 3 mg / 0.5 (3 ml) UD INH PRN ×4 (00:59→19:35)
[2018-07-17] MEDS: Acetylcysteine 10% 4 ML IH SCH ×4 (01:00→19:35)
[2018-07-17] MEDS: Proshield Plus GEL TOP SCH ×3 (01:14→16:43)
[2018-07-17 06:58] LABS: CALCIUM 9.3 mg/dL (8.4-10.2)
[2018-07-17] MEDS: Insulin Lispro (humaLOG) 100 Units/ml Inj SC SCH ×4 (08:48→21:53)
--- NOTE | 2018-07-17 10:20 | CP.PCM.PN ---
Subjective - Date & Time of Evaluation Date of Evaluation: 07/17/18 Time of Evaluation: 08:00 - Subjective Subjective: awake alert eating poorly Antivirals adjusted Objective - Vital Signs/Intake and Output Vital Signs (last 24 hours): Temp Pulse Resp BP Pulse Ox 97.8 F 69 18 131/81 99 07/17/18 08:14 07/17/18 08:14 07/17/18 08:14 07/17/18 08:14 07/17/18 08:14 - Medications Medications: Current Medications Acetaminophen (Tylenol 650 Mg Supp) 650 mg [place] Q6 PRN PRN Reason: Fever >100.4 F Last Admin: 06/20/18 02:30 Dose: 650 mg Acetaminophen (Tylenol 325mg Tab) 650 mg PO Q4 PRN PRN Reason: Fever >100.4 F Last Admin: 07/16/18 16:44 Dose: 650 mg Acetylcysteine (Mucomyst 10% 4ml) 4 ml IH RQ6 [facility] Last Admin: 07/17/18 08:04 Dose: 4 ml Albuterol/Ipratropium (Duoneb 3 Mg/0.5 Mg (3 Ml) Ud) 3 ml INH RQ6 PRN PRN Reason: Shortness of Breath Last Admin: 07/17/18 08:04 Dose: 3 ml Amlodipine Besylate (Norvasc) 5 mg PO DAILY [facility] Last Admin: 07/16/18 09:56 Dose: 5 mg Dimethicone (Proshield Plus Skin Protectant) 1 applic TOP Q8 [facility] Last Admin: 07/17/18 01:14 Dose: 1 applic Enoxaparin Sodium (Lovenox) 30 mg SC DAILY [facility]; Protocol Last Admin: 06/17/18 09:20 Dose: 30 mg Insulin Human Lispro (Humalog) 0 units SC ACHS [facility]; Protocol Last Admin: 07/16/18 21:59 Dose: Not Given Lamivudine (Epivir) 300 mg PO Q48H [facility]; Protocol Last Admin: 07/16/18 11:26 Dose: Not Given Methylprednisolone (Medrol) 4 mg PO DAILY [facility] Last Admin: 07/16/18 09:57 Dose: 4 mg Metoprolol Tartrate (Lopressor) 50 mg PO Q12 [facility] Last Admin: 07/16/18 20:35 Dose: 50 mg Nystatin (Nystop Topical Powder) 1 applic TOP TID [facility] Last Admin: 07/16/18 16:26 Dose: 1 applic Ondansetron HCl (Zofran Inj) 4 mg IVP Q4 PRN PRN Reason: Nausea/Vomiting Last Admin: 07/05/18 21:16 Dose: 4 mg Phenylephrine HCl (Phenylephrine Opht 2.5% Soln) 1 drop OU PRN PRN PRN Reason: dilate pupils Last Admin: 07/12/18 07:09 Dose: 1 drop Raltegravir (Isentress) 400 mg PO BID [facility]; Protocol Stop: 08/05/23 17:00 Last Admin: 07/16/18 16:26 Dose: 400 mg Tenofovir Disoproxil Fumarate (Viread) 300 mg PO Q48H [facility]; Protocol Last Admin: 07/16/18 11:25 Dose: Not Given Tropicamide (Mydriacyl 1% Opht Soln 15ml) 1 drop OU PRN PRN PRN Reason: dilate pupils Last Admin: 07/12/18 07:10 Dose: 1 drop Valganciclovir (Valcyte) 450 mg PO BID [facility] Stop: 08/31/18 08:00 Last Admin: 07/16/18 09:57 Dose: 450 mg - Labs Labs: 07/16/18 07:47 07/17/18 05:25 PT 10.8 Seconds (9.8-13.1) 07/03/18 08:10 INR 1.0 07/03/18 08:10 APTT 25.9 Seconds (25.6-37.1) 07/03/18 08:10 - Constitutional Appears: Non-toxic, Cachectic, Chronically Ill - Head Exam Head Exam: ATRAUMATIC, NORMAL INSPECTION, NORMOCEPHALIC - Eye Exam Eye Exam: EOMI, Normal appearance, PERRL Pupil Exam: NORMAL ACCOMODATION, PERRL - ENT Exam ENT Exam: Mucous Membranes Moist, Normal Exam - Neck Exam Neck Exam: Full ROM, Normal Inspection. absent: Lymphadenopathy - Respiratory Exam Respiratory Exam: Clear to Ausculation Bilateral, NORMAL BREATHING PATTERN - Cardiovascular Exam Cardiovascular Exam: REGULAR RHYTHM, +S1, +S2. absent: Murmur - GI/Abdominal Exam GI & Abdominal Exam: Soft, Normal Bowel Sounds. absent: Tenderness - Rectal Exam Rectal Exam: Deferred - Exam Exam: NORMAL INSPECTION - Extremities Exam Extremities Exam: Full ROM, Normal Capillary Refill, Normal Inspection. absent: Joint Swelling, Pedal Edema - Back Exam Back Exam: NORMAL INSPECTION - Neurological Exam Neurological Exam: Alert, Awake, CN II-XII Intact - Psychiatric Exam Psychiatric exam: Normal Affect, Normal Mood - Skin Skin Exam: Dry, Intact, Normal Color, Warm Assessment and Plan (1) Acute renal failure Status: Acute (2) Altered mental status Status: Acute (3) Diabetes mellitus Status: Acute (4) HIV (human immunodeficiency virus infection) Status: Acute (5) Pneumonia Status: Acute (6) Encephalopathy Status: Acute (7) CMV (cytomegalovirus) infection Status: Acute - Assessment and Plan (Free Text) 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
[2018-07-17] MEDS ORDERED: Dextrose 5%/0.45% NS 1,000 ML IV SCH (12:45)
--- NOTE | 2018-07-17 13:05 | CP.PCM.PN ---
Subjective - Date & Time of Evaluation Date of Evaluation: 07/17/18 Time of Evaluation: 13:05 - Subjective Subjective: Patient awake however he has a poor intake Vital signs noted Labs reviewed with worsening kidney function Objective - Vital Signs/Intake and Output Vital Signs (last 24 hours): Temp Pulse Resp BP Pulse Ox 97.8 F 69 18 131/81 99 07/17/18 10:00 07/17/18 10:52 07/17/18 10:00 07/17/18 10:52 07/17/18 10:00 - Medications Medications: Current Medications Acetaminophen (Tylenol 650 Mg Supp) 650 mg [place] Q6 PRN PRN Reason: Fever >100.4 F Last Admin: 06/20/18 02:30 Dose: 650 mg Acetaminophen (Tylenol 325mg Tab) 650 mg PO Q4 PRN PRN Reason: Fever >100.4 F Last Admin: 07/16/18 16:44 Dose: 650 mg Acetylcysteine (Mucomyst 10% 4ml) 4 ml IH RQ6 [facility] Last Admin: 07/17/18 08:04 Dose: 4 ml Albuterol/Ipratropium (Duoneb 3 Mg/0.5 Mg (3 Ml) Ud) 3 ml INH RQ6 PRN PRN Reason: Shortness of Breath Last Admin: 07/17/18 08:04 Dose: 3 ml Amlodipine Besylate (Norvasc) 5 mg PO DAILY [facility] Last Admin: 07/17/18 10:49 Dose: 5 mg Dimethicone (Proshield Plus Skin Protectant) 1 applic TOP Q8 [facility] Last Admin: 07/17/18 10:55 Dose: 1 applic Enoxaparin Sodium (Lovenox) 30 mg SC DAILY [facility]; Protocol Last Admin: 06/17/18 09:20 Dose: 30 mg Dextrose/Sodium Chloride (Dextrose 5%/0.45% Ns 1000 Ml) 1,000 mls @ 100 mls/hr IV .Q10H [facility] Stop: 07/18/18 12:44 Dextrose/Sodium Chloride (Dextrose 5%-0.45% Ns 500 Ml) 1,000 mls @ 100 mls/hr IV .Q10H [facility] Stop: 07/18/18 12:40 Insulin Human Lispro (Humalog) 0 units SC ACHS [facility]; Protocol Last Admin: 07/17/18 08:48 Dose: 1 units Lamivudine (Epivir) 300 mg PO Q48H [facility]; Protocol Last Admin: 07/16/18 11:26 Dose: Not Given Methylprednisolone (Medrol) 4 mg PO DAILY [facility] Last Admin: 07/17/18 10:49 Dose: 4 mg Metoprolol Tartrate (Lopressor) 50 mg PO Q12 [facility] Last Admin: 07/17/18 10:52 Dose: 50 mg Nystatin (Nystop Topical Powder) 1 applic TOP TID [facility] Last Admin: 07/17/18 10:51 Dose: 1 applic Ondansetron HCl (Zofran Inj) 4 mg IVP Q4 PRN PRN Reason: Nausea/Vomiting Last Admin: 07/05/18 21:16 Dose: 4 mg Phenylephrine HCl (Phenylephrine Opht 2.5% Soln) 1 drop OU PRN PRN PRN Reason: dilate pupils Last Admin: 07/12/18 07:09 Dose: 1 drop Raltegravir (Isentress) 400 mg PO BID [facility]; Protocol Stop: 08/05/23 17:00 Last Admin: 07/17/18 10:53 Dose: 400 mg Tenofovir Disoproxil Fumarate (Viread) 300 mg PO Q48H [facility]; Protocol Last Admin: 07/16/18 11:25 Dose: Not Given Tropicamide (Mydriacyl 1% Opht Soln 15ml) 1 drop OU PRN PRN PRN Reason: dilate pupils Last Admin: 07/12/18 07:10 Dose: 1 drop Valganciclovir (Valcyte) 450 mg PO BID [facility] Stop: 08/31/18 08:00 Last Admin: 07/16/18 09:57 Dose: 450 mg - Labs Labs: 07/16/18 07:47 07/17/18 05:25 PT 10.8 Seconds (9.8-13.1) 07/03/18 08:10 INR 1.0 07/03/18 08:10 APTT 25.9 Seconds (25.6-37.1) 07/03/18 08:10 - Constitutional Appears: No Acute Distress - Eye Exam Eye Exam: Conjunctival injection - ENT Exam ENT Exam: Mucous Membranes Dry - Neck Exam Neck Exam: absent: Lymphadenopathy - Cardiovascular Exam Cardiovascular Exam: absent: Gallop, Rubs - GI/Abdominal Exam GI & Abdominal Exam: Soft, Normal Bowel Sounds - Extremities Exam Extremities Exam: absent: Calf Tenderness - Back Exam Back Exam: absent: CVA tenderness (L), CVA tenderness (R) - Neurological Exam Neurological Exam: Awake - Skin Skin Exam: absent: Cyanosis Assessment and Plan (1) Acute renal failure Assessment & Plan: HUGO patient developing acute kidney injury again serum creatinine rising Sepsis Encephalopathy much better, more awake S/P Respiratory failure extubated Status post tracheostomy Hyponatremia corrected HIV/AIDS severe malnutritoon CMV viremia Recommendation Worsening kidney function rising creatinine Kayexalate for hyperkalemia IV fluid D5 and half-normal saline 100 to 125cc/hr If kidney function continued to get worse we will consider dialysis Status: Acute (2) HIV (human immunodeficiency virus infection) Status: Acute
--- NOTE | 2018-07-17 13:44 | CP.PCM.PN ---
Subjective - Date & Time of Evaluation Date of Evaluation: 07/17/18 Time of Evaluation: 12:50 - Subjective Subjective: F/U S/P Respiratory Failure Pt awake, alert, no A/D, follows commands. Objective - Vital Signs/Intake and Output Vital Signs (last 24 hours): Temp Pulse Resp BP Pulse Ox 97.8 F 69 18 131/81 99 07/17/18 10:00 07/17/18 10:52 07/17/18 10:00 07/17/18 10:52 07/17/18 10:00 - Medications Medications: Current Medications Acetaminophen (Tylenol 650 Mg Supp) 650 mg [place] Q6 PRN PRN Reason: Fever >100.4 F Last Admin: 06/20/18 02:30 Dose: 650 mg Acetaminophen (Tylenol 325mg Tab) 650 mg PO Q4 PRN PRN Reason: Fever >100.4 F Last Admin: 07/16/18 16:44 Dose: 650 mg Acetylcysteine (Mucomyst 10% 4ml) 4 ml IH RQ6 [facility] Last Admin: 07/17/18 13:27 Dose: 4 ml Albuterol/Ipratropium (Duoneb 3 Mg/0.5 Mg (3 Ml) Ud) 3 ml INH RQ6 PRN PRN Reason: Shortness of Breath Last Admin: 07/17/18 13:27 Dose: 3 ml Amlodipine Besylate (Norvasc) 5 mg PO DAILY [facility] Last Admin: 07/17/18 10:49 Dose: 5 mg Dimethicone (Proshield Plus Skin Protectant) 1 applic TOP Q8 [facility] Last Admin: 07/17/18 10:55 Dose: 1 applic Enoxaparin Sodium (Lovenox) 30 mg SC DAILY [facility]; Protocol Last Admin: 06/17/18 09:20 Dose: 30 mg Dextrose/Sodium Chloride (Dextrose 5%-0.45% Ns 500 Ml) 1,000 mls @ 125 mls/hr IV .Q8H [facility] Stop: 07/18/18 12:40 Insulin Human Lispro (Humalog) 0 units SC ACHS [facility]; Protocol Last Admin: 07/17/18 12:40 Dose: 2 units Lamivudine (Epivir) 300 mg PO Q48H [facility]; Protocol Last Admin: 07/16/18 11:26 Dose: Not Given Methylprednisolone (Medrol) 4 mg PO DAILY [facility] Last Admin: 07/17/18 10:49 Dose: 4 mg Metoprolol Tartrate (Lopressor) 50 mg PO Q12 [facility] Last Admin: 07/17/18 10:52 Dose: 50 mg Nystatin (Nystop Topical Powder) 1 applic TOP TID [facility] Last Admin: 07/17/18 10:51 Dose: 1 applic Ondansetron HCl (Zofran Inj) 4 mg IVP Q4 PRN PRN Reason: Nausea/Vomiting Last Admin: 07/05/18 21:16 Dose: 4 mg Phenylephrine HCl (Phenylephrine Opht 2.5% Soln) 1 drop OU PRN PRN PRN Reason: dilate pupils Last Admin: 07/12/18 07:09 Dose: 1 drop Raltegravir (Isentress) 400 mg PO BID [facility]; Protocol Stop: 08/05/23 17:00 Last Admin: 07/17/18 10:53 Dose: 400 mg Tenofovir Disoproxil Fumarate (Viread) 300 mg PO Q48H [facility]; Protocol Last Admin: 07/16/18 11:25 Dose: Not Given Tropicamide (Mydriacyl 1% Opht Soln 15ml) 1 drop OU PRN PRN PRN Reason: dilate pupils Last Admin: 07/12/18 07:10 Dose: 1 drop Valganciclovir (Valcyte) 450 mg PO BID [facility] Stop: 08/31/18 08:00 Last Admin: 07/16/18 09:57 Dose: 450 mg - Labs Labs: 07/16/18 07:47 07/17/18 05:25 PT 10.8 Seconds (9.8-13.1) 07/03/18 08:10 INR 1.0 07/03/18 08:10 APTT 25.9 Seconds (25.6-37.1) 07/03/18 08:10 - Constitutional Appears: Chronically Ill - Head Exam Head Exam: NORMAL INSPECTION - Eye Exam Eye Exam: PERRL - ENT Exam ENT Exam: Normal Exam - Neck Exam Additional comments: Trach Collar - Respiratory Exam Respiratory Exam: Decreased Breath Sounds (at bases), Rhonchi - Cardiovascular Exam Cardiovascular Exam: REGULAR RHYTHM - GI/Abdominal Exam GI & Abdominal Exam: Soft, Normal Bowel Sounds - Extremities Exam Additional comments: JANKI PICC line, edema - Neurological Exam Neurological Exam: Awake Additional comments: Able to follow commands, attempt to talk, moving extremities on commands. - Skin Skin Exam: Warm Assessment and Plan (1) Respiratory failure Status: Resolved (2) Tracheostomy status Status: Acute (3) Altered mental status Status: Acute (4) HIV (human immunodeficiency virus infection) Status: Acute (5) Fever Status: Resolved (6) Pneumonia Status: Resolved (7) Severe sepsis Status: Resolved (8) Acute renal failure Status: Acute (9) Diabetes mellitus Status: Acute (10) Anemia Status: Chronic - Assessment and Plan (Free Text) Plan: Continue HAART, Duoneb, Medrol and rest of Tx., increased BUN/Creat , monitor renal function, Renal f/u, Social Service working for rehab placement.
[2018-07-18] MEDS: Proshield Plus GEL TOP SCH ×3 (00:57→17:07)
[2018-07-18] MEDS: Acetylcysteine 10% 4 ML IH SCH ×4 (01:00→20:10)
[2018-07-18] MEDS: Insulin Lispro (humaLOG) 100 Units/ml Inj SC SCH ×4 (07:52→22:10)
[2018-07-18] MEDS: Albuterol-Ipratrop 3 mg / 0.5 (3 ml) UD INH PRN ×3 (07:55→20:10)
[2018-07-18 08:43] LABS: HEMOGLOBIN 7.6 g/dL (12.0-18.0); MEAN CORPUSCULAR HGB CONC 32.2 g/dL (33.0-37.0); RBC 2.63 Mil/uL (4.40-5.90); RED CELL DISTRIBUTION WIDTH 22.1 % (11.5-14.5); WHITE BLOOD COUNT 2.9 K/uL (4.8-10.8)
[2018-07-18 09:01] LABS: ALB/GLOB RATIO 0.8 (1.0-2.1); ALBUMIN 2.6 g/dL (3.5-5.0); CALCIUM 8.7 mg/dL (8.4-10.2)
--- NOTE | 2018-07-18 12:49 | CP.PCM.PN ---
Subjective - Date & Time of Evaluation Date of Evaluation: 07/18/18 Time of Evaluation: 12:48 - Subjective Subjective: Patient is sitting up in bed awake No nausea or vomiting. Appears to be comfortable Vital signs noted Objective - Vital Signs/Intake and Output Vital Signs (last 24 hours): Temp Pulse Resp BP Pulse Ox 97.6 F 78 20 106/67 100 07/18/18 12:47 07/18/18 12:47 07/18/18 12:47 07/18/18 12:47 07/18/18 08:50 - Medications Medications: Current Medications Acetaminophen (Tylenol 650 Mg Supp) 650 mg [place] Q6 PRN PRN Reason: Fever >100.4 F Last Admin: 06/20/18 02:30 Dose: 650 mg Acetaminophen (Tylenol 325mg Tab) 650 mg PO Q4 PRN PRN Reason: Fever >100.4 F Last Admin: 07/16/18 16:44 Dose: 650 mg Acetylcysteine (Mucomyst 10% 4ml) 4 ml IH RQ6 [facility] Last Admin: 07/18/18 07:55 Dose: 4 ml Albuterol/Ipratropium (Duoneb 3 Mg/0.5 Mg (3 Ml) Ud) 3 ml INH RQ6 PRN PRN Reason: Shortness of Breath Last Admin: 07/18/18 07:55 Dose: 3 ml Amlodipine Besylate (Norvasc) 5 mg PO DAILY [facility] Last Admin: 07/17/18 10:49 Dose: 5 mg Dimethicone (Proshield Plus Skin Protectant) 1 applic TOP Q8 [facility] Last Admin: 07/18/18 00:57 Dose: 1 applic Enoxaparin Sodium (Lovenox) 30 mg SC DAILY [facility]; Protocol Last Admin: 06/17/18 09:20 Dose: 30 mg Insulin Human Lispro (Humalog) 0 units SC ACHS [facility]; Protocol Last Admin: 07/17/18 21:53 Dose: Not Given Lamivudine (Epivir) 300 mg PO Q48H [facility]; Protocol Last Admin: 07/16/18 11:26 Dose: Not Given Methylprednisolone (Medrol) 4 mg PO DAILY [facility] Last Admin: 07/17/18 10:49 Dose: 4 mg Metoprolol Tartrate (Lopressor) 50 mg PO Q12 [facility] Last Admin: 07/17/18 21:29 Dose: 50 mg Nystatin (Nystop Topical Powder) 1 applic TOP TID [facility] Last Admin: 07/17/18 16:44 Dose: 1 applic Ondansetron HCl (Zofran Inj) 4 mg IVP Q4 PRN PRN Reason: Nausea/Vomiting Last Admin: 07/05/18 21:16 Dose: 4 mg Phenylephrine HCl (Phenylephrine Opht 2.5% Soln) 1 drop OU PRN PRN PRN Reason: dilate pupils Last Admin: 07/12/18 07:09 Dose: 1 drop Raltegravir (Isentress) 400 mg PO BID [facility]; Protocol Stop: 08/05/23 17:00 Last Admin: 07/17/18 16:43 Dose: 400 mg Tenofovir Disoproxil Fumarate (Viread) 300 mg PO Q48H [facility]; Protocol Last Admin: 07/16/18 11:25 Dose: Not Given Tropicamide (Mydriacyl 1% Opht Soln 15ml) 1 drop OU PRN PRN PRN Reason: dilate pupils Last Admin: 07/12/18 07:10 Dose: 1 drop Valganciclovir (Valcyte) 450 mg PO BID [facility] Stop: 08/31/18 08:00 Last Admin: 07/16/18 09:57 Dose: 450 mg - Labs Labs: 07/18/18 08:28 07/18/18 08:07 PT 10.8 Seconds (9.8-13.1) 07/03/18 08:10 INR 1.0 07/03/18 08:10 APTT 25.9 Seconds (25.6-37.1) 07/03/18 08:10 - Constitutional Appears: No Acute Distress - Eye Exam Eye Exam: Conjunctival injection - ENT Exam ENT Exam: Mucous Membranes Moist - Respiratory Exam Respiratory Exam: NORMAL BREATHING PATTERN. absent: Chest Wall Tenderness - Cardiovascular Exam Cardiovascular Exam: absent: Gallop, JVD, Rubs - GI/Abdominal Exam GI & Abdominal Exam: Soft, Normal Bowel Sounds - Extremities Exam Extremities Exam: absent: Calf Tenderness - Back Exam Back Exam: absent: CVA tenderness (L), CVA tenderness (R) - Neurological Exam Neurological Exam: Alert, Awake - Skin Skin Exam: absent: Cyanosis Assessment and Plan (1) Acute renal failure Assessment & Plan: HUOG patient developing acute kidney injury again serum creatinine rising Sepsis Encephalopathy much better, more awake S/P Respiratory failure extubated Status post tracheostomy Hyponatremia corrected HIV/AIDS severe malnutritoon CMV viremia Recommendation Worsening kidney function rising creatinine Kayexalate for hyperkalemia IV fluid D5 and half-normal saline 100 to 125cc/hr If kidney function continued to get worse we will consider dialysis blood transfusio Discussed with the nurse in the floor to put either Yang catheter or [place] catheter we need to obtain the urine output Status: Acute (2) HIV (human immunodeficiency virus infection) Status: Acute
--- NOTE | 2018-07-18 13:49 | CP.PCM.PN ---
Subjective - Date & Time of Evaluation Date of Evaluation: 07/18/18 Time of Evaluation: 08:00 - Subjective Subjective: iv transfusion in progress Objective - Vital Signs/Intake and Output Vital Signs (last 24 hours): Temp Pulse Resp BP Pulse Ox 97.6 F 77 20 129/75 100 07/18/18 13:04 07/18/18 13:04 07/18/18 13:04 07/18/18 13:11 07/18/18 08:50 Intake and Output: 07/18/18 07/18/18 06:59 18:59 Intake Total 0 Balance 0 - Medications Medications: Current Medications Acetaminophen (Tylenol 650 Mg Supp) 650 mg [place] Q6 PRN PRN Reason: Fever >100.4 F Last Admin: 06/20/18 02:30 Dose: 650 mg Acetaminophen (Tylenol 325mg Tab) 650 mg PO Q4 PRN PRN Reason: Fever >100.4 F Last Admin: 07/16/18 16:44 Dose: 650 mg Acetylcysteine (Mucomyst 10% 4ml) 4 ml IH RQ6 [facility] Last Admin: 07/18/18 13:18 Dose: 4 ml Albuterol/Ipratropium (Duoneb 3 Mg/0.5 Mg (3 Ml) Ud) 3 ml INH RQ6 PRN PRN Reason: Shortness of Breath Last Admin: 07/18/18 13:18 Dose: 3 ml Amlodipine Besylate (Norvasc) 5 mg PO DAILY [facility] Last Admin: 07/17/18 10:49 Dose: 5 mg Dimethicone (Proshield Plus Skin Protectant) 1 applic TOP Q8 [facility] Last Admin: 07/18/18 00:57 Dose: 1 applic Enoxaparin Sodium (Lovenox) 30 mg SC DAILY [facility]; Protocol Last Admin: 06/17/18 09:20 Dose: 30 mg Insulin Human Lispro (Humalog) 0 units SC ACHS [facility]; Protocol Last Admin: 07/17/18 21:53 Dose: Not Given Lamivudine (Epivir) 300 mg PO Q48H [facility]; Protocol Last Admin: 07/16/18 11:26 Dose: Not Given Methylprednisolone (Medrol) 4 mg PO DAILY [facility] Last Admin: 07/17/18 10:49 Dose: 4 mg Metoprolol Tartrate (Lopressor) 50 mg PO Q12 [facility] Last Admin: 07/17/18 21:29 Dose: 50 mg Nystatin (Nystop Topical Powder) 1 applic TOP TID [facility] Last Admin: 07/17/18 16:44 Dose: 1 applic Ondansetron HCl (Zofran Inj) 4 mg IVP Q4 PRN PRN Reason: Nausea/Vomiting Last Admin: 07/05/18 21:16 Dose: 4 mg Phenylephrine HCl (Phenylephrine Opht 2.5% Soln) 1 drop OU PRN PRN PRN Reason: dilate pupils Last Admin: 07/12/18 07:09 Dose: 1 drop Raltegravir (Isentress) 400 mg PO BID [facility]; Protocol Stop: 08/05/23 17:00 Last Admin: 07/17/18 16:43 Dose: 400 mg Tenofovir Disoproxil Fumarate (Viread) 300 mg PO Q48H [facility]; Protocol Last Admin: 07/16/18 11:25 Dose: Not Given Tropicamide (Mydriacyl 1% Opht Soln 15ml) 1 drop OU PRN PRN PRN Reason: dilate pupils Last Admin: 07/12/18 07:10 Dose: 1 drop Valganciclovir (Valcyte) 450 mg PO BID [facility] Stop: 08/31/18 08:00 Last Admin: 07/16/18 09:57 Dose: 450 mg - Labs Labs: 07/18/18 08:28 07/18/18 08:07 PT 10.8 Seconds (9.8-13.1) 07/03/18 08:10 INR 1.0 07/03/18 08:10 APTT 25.9 Seconds (25.6-37.1) 07/03/18 08:10 - Constitutional Appears: No Acute Distress, Confused, Cachectic, Chronically Ill - Head Exam Head Exam: ATRAUMATIC, NORMAL INSPECTION, NORMOCEPHALIC - Eye Exam Eye Exam: EOMI, Normal appearance, PERRL Pupil Exam: NORMAL ACCOMODATION, PERRL - ENT Exam ENT Exam: Mucous Membranes Moist, Normal Exam - Neck Exam Neck Exam: Full ROM, Normal Inspection. absent: Lymphadenopathy - Respiratory Exam Respiratory Exam: Clear to Ausculation Bilateral, NORMAL BREATHING PATTERN - Cardiovascular Exam Cardiovascular Exam: REGULAR RHYTHM, +S1, +S2. absent: Murmur - GI/Abdominal Exam GI & Abdominal Exam: Soft, Normal Bowel Sounds. absent: Tenderness - Rectal Exam Rectal Exam: Deferred - Exam Exam: NORMAL INSPECTION Bimanual exam: absent: Adenexal Mass - Extremities Exam Extremities Exam: Full ROM, Normal Capillary Refill, Normal Inspection. absent: Joint Swelling, Pedal Edema - Back Exam Back Exam: NORMAL INSPECTION - Neurological Exam Neurological Exam: Alert, Awake, CN II-XII Intact. absent: Oriented x3 Neuro motor strength exam: Left Upper Extremity: 3, Right Upper Extremity: 3, Left Lower Extremity: 3, Right Lower Extremity: 3 - Psychiatric Exam Psychiatric exam: Depressed, Normal Affect - Skin Skin Exam: Dry, Intact, Normal Color, Warm Assessment and Plan (1) Acute renal failure Status: Acute (2) Altered mental status Status: Acute (3) Diabetes mellitus Status: Acute (4) HIV (human immunodeficiency virus infection) Status: Acute (5) Pneumonia Status: Resolved (6) Encephalopathy Status: Acute (7) CMV (cytomegalovirus) infection Status: Acute - Assessment and Plan (Free Text) Assessment: iv rx in progress valcyte renewed
--- NOTE | 2018-07-18 14:44 | CP.PCM.PN ---
Subjective - Date & Time of Evaluation Date of Evaluation: 07/18/18 Time of Evaluation: 13:00 - Subjective Subjective: F/U S/P Respiratory Failure/ Tracheostomy. Pt awake, follows commands, attempt to talk. Objective - Vital Signs/Intake and Output Vital Signs (last 24 hours): Temp Pulse Resp BP Pulse Ox 97.6 F 77 20 129/75 100 07/18/18 13:04 07/18/18 14:02 07/18/18 13:04 07/18/18 14:02 07/18/18 08:50 Intake and Output: 07/18/18 07/18/18 06:59 18:59 Intake Total 0 Balance 0 - Medications Medications: Current Medications Acetaminophen (Tylenol 650 Mg Supp) 650 mg [place] Q6 PRN PRN Reason: Fever >100.4 F Last Admin: 06/20/18 02:30 Dose: 650 mg Acetaminophen (Tylenol 325mg Tab) 650 mg PO Q4 PRN PRN Reason: Fever >100.4 F Last Admin: 07/16/18 16:44 Dose: 650 mg Acetylcysteine (Mucomyst 10% 4ml) 4 ml IH RQ6 [facility] Last Admin: 07/18/18 13:18 Dose: 4 ml Albuterol/Ipratropium (Duoneb 3 Mg/0.5 Mg (3 Ml) Ud) 3 ml INH RQ6 PRN PRN Reason: Shortness of Breath Last Admin: 07/18/18 13:18 Dose: 3 ml Amlodipine Besylate (Norvasc) 5 mg PO DAILY [facility] Last Admin: 07/18/18 14:02 Dose: 5 mg Dimethicone (Proshield Plus Skin Protectant) 1 applic TOP Q8 [facility] Last Admin: 07/18/18 14:03 Dose: 1 applic Enoxaparin Sodium (Lovenox) 30 mg SC DAILY [facility]; Protocol Last Admin: 06/17/18 09:20 Dose: 30 mg Insulin Human Lispro (Humalog) 0 units SC ACHS [facility]; Protocol Last Admin: 07/18/18 12:18 Dose: 3 units Lamivudine (Epivir) 300 mg PO Q48H [facility]; Protocol Last Admin: 07/18/18 14:05 Dose: 300 mg Methylprednisolone (Medrol) 4 mg PO DAILY [facility] Last Admin: 07/18/18 14:01 Dose: 4 mg Metoprolol Tartrate (Lopressor) 50 mg PO Q12 [facility] Last Admin: 07/18/18 13:53 Dose: 50 mg Nystatin (Nystop Topical Powder) 1 applic TOP TID [facility] Last Admin: 07/18/18 14:04 Dose: Not Given Ondansetron HCl (Zofran Inj) 4 mg IVP Q4 PRN PRN Reason: Nausea/Vomiting Last Admin: 07/05/18 21:16 Dose: 4 mg Phenylephrine HCl (Phenylephrine Opht 2.5% Soln) 1 drop OU PRN PRN PRN Reason: dilate pupils Last Admin: 07/12/18 07:09 Dose: 1 drop Raltegravir (Isentress) 400 mg PO BID [facility]; Protocol Stop: 08/05/23 17:00 Last Admin: 07/18/18 14:00 Dose: 400 mg Tenofovir Disoproxil Fumarate (Viread) 300 mg PO Q48H [facility]; Protocol Last Admin: 07/18/18 14:01 Dose: 300 mg Tropicamide (Mydriacyl 1% Opht Soln 15ml) 1 drop OU PRN PRN PRN Reason: dilate pupils Last Admin: 07/12/18 07:10 Dose: 1 drop Valganciclovir (Valcyte) 450 mg PO BID [facility] Stop: 08/31/18 08:00 Last Admin: 07/16/18 09:57 Dose: 450 mg - Labs Labs: 07/18/18 08:28 07/18/18 08:07 PT 10.8 Seconds (9.8-13.1) 07/03/18 08:10 INR 1.0 07/03/18 08:10 APTT 25.9 Seconds (25.6-37.1) 07/03/18 08:10 - Constitutional Appears: Chronically Ill - Head Exam Head Exam: NORMAL INSPECTION - Eye Exam Eye Exam: PERRL - ENT Exam ENT Exam: Normal Exam - Neck Exam Neck Exam: Normal Inspection Additional comments: Trach Collar. - Respiratory Exam Respiratory Exam: Decreased Breath Sounds (at bases), Rhonchi - Cardiovascular Exam Cardiovascular Exam: REGULAR RHYTHM - GI/Abdominal Exam GI & Abdominal Exam: Soft, Normal Bowel Sounds - Extremities Exam Additional comments: RUE PICC line in place, edema - Neurological Exam Neurological Exam: Awake Additional comments: Able to follow commands, attempt to talk, moving extremities on commands - Skin Skin Exam: Warm Assessment and Plan (1) Respiratory failure Status: Resolved (2) Tracheostomy status Status: Acute (3) Altered mental status Status: Acute (4) HIV (human immunodeficiency virus infection) Status: Acute (5) Fever Status: Resolved (6) Pneumonia Status: Resolved (7) Severe sepsis Status: Resolved (8) Acute renal failure Status: Acute (9) Diabetes mellitus Status: Acute (10) Anemia Status: Chronic - Assessment and Plan (Free Text) Plan: Continue Puree diet, to have 2 U PRBC with lasix 40 IV, before, IV fluid, BUN/Creatinine increased, to have 24 hrs urine total protein-creatinine clearance, if there is not improvement may need dialysis. 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
[2018-07-19] MEDS: Proshield Plus GEL TOP SCH ×3 (00:38→17:43)
[2018-07-19] MEDS: Albuterol-Ipratrop 3 mg / 0.5 (3 ml) UD INH PRN ×4 (00:59→19:13)
[2018-07-19] MEDS: Acetylcysteine 10% 4 ML IH SCH ×4 (00:59→19:12)
[2018-07-19 10:08] LABS: HEMOGLOBIN 10.7 g/dL (12.0-18.0); MEAN CELL VOLUME 87.9 fl (80.0-94.0); MEAN CORPUSCULAR HEMOGLOBIN 29.4 pg (27.0-31.0); MEAN CORPUSCULAR HGB CONC 33.4 g/dL (33.0-37.0); RBC 3.63 Mil/uL (4.40-5.90); RED CELL DISTRIBUTION WIDTH 18.5 % (11.5-14.5); WHITE BLOOD COUNT 2.2 K/uL (4.8-10.8)
[2018-07-19] MEDS: Insulin Lispro (humaLOG) 100 Units/ml Inj SC SCH ×4 (10:18→23:54)
--- NOTE | 2018-07-19 10:42 | CP.PCM.PN ---
Subjective - Date & Time of Evaluation Date of Evaluation: 07/19/18 Time of Evaluation: 10:42 - Subjective Subjective: Patient is somewhat awake Sitting up in bed Appetite not great Vital signs noted Objective - Vital Signs/Intake and Output Vital Signs (last 24 hours): Temp Pulse Resp BP Pulse Ox 97.5 F L 95 H 18 135/82 97 07/19/18 00:22 07/19/18 10:20 07/19/18 08:02 07/19/18 10:20 07/19/18 08:02 Intake and Output: 07/19/18 07/19/18 06:59 18:59 Intake Total 20110 Output Total 2999 1999 Balance -988 -650 - Medications Medications: Current Medications Acetaminophen (Tylenol 650 Mg Supp) 650 mg [place] Q6 PRN PRN Reason: Fever >100.4 F Last Admin: 06/20/18 02:30 Dose: 650 mg Acetaminophen (Tylenol 325mg Tab) 650 mg PO Q4 PRN PRN Reason: Fever >100.4 F Last Admin: 07/16/18 16:44 Dose: 650 mg Acetylcysteine (Mucomyst 10% 4ml) 4 ml IH RQ6 [facility] Last Admin: 07/19/18 07:21 Dose: 4 ml Albuterol/Ipratropium (Duoneb 3 Mg/0.5 Mg (3 Ml) Ud) 3 ml INH RQ6 PRN PRN Reason: Shortness of Breath Last Admin: 07/19/18 07:21 Dose: 3 ml Amlodipine Besylate (Norvasc) 5 mg PO DAILY [facility] Last Admin: 07/19/18 10:20 Dose: 5 mg Dimethicone (Proshield Plus Skin Protectant) 1 applic TOP Q8 [facility] Last Admin: 07/19/18 10:21 Dose: 1 applic Enoxaparin Sodium (Lovenox) 30 mg SC DAILY [facility]; Protocol Last Admin: 06/17/18 09:20 Dose: 30 mg Insulin Human Lispro (Humalog) 0 units SC ACHS [facility]; Protocol Last Admin: 07/19/18 10:18 Dose: 1 units Lamivudine (Epivir) 300 mg PO Q48H [facility]; Protocol Last Admin: 07/18/18 14:05 Dose: 300 mg Methylprednisolone (Medrol) 4 mg PO DAILY [facility] Last Admin: 07/19/18 10:20 Dose: 4 mg Metoprolol Tartrate (Lopressor) 50 mg PO Q12 [facility] Last Admin: 07/19/18 10:19 Dose: 50 mg Nystatin (Nystop Topical Powder) 1 applic TOP TID [facility] Last Admin: 07/19/18 10:21 Dose: 1 applic Nystatin (Nystatin Oral Susp) 5 ml PO QID [facility] Ondansetron HCl (Zofran Inj) 4 mg IVP Q4 PRN PRN Reason: Nausea/Vomiting Last Admin: 07/05/18 21:16 Dose: 4 mg Phenylephrine HCl (Phenylephrine Opht 2.5% Soln) 1 drop OU PRN PRN PRN Reason: dilate pupils Last Admin: 07/12/18 07:09 Dose: 1 drop Raltegravir (Isentress) 400 mg PO BID [facility]; Protocol Stop: 08/05/23 17:00 Last Admin: 07/19/18 10:19 Dose: 400 mg Tenofovir Disoproxil Fumarate (Viread) 300 mg PO Q48H [facility]; Protocol Last Admin: 07/18/18 14:01 Dose: 300 mg Tropicamide (Mydriacyl 1% Opht Soln 15ml) 1 drop OU PRN PRN PRN Reason: dilate pupils Last Admin: 07/12/18 07:10 Dose: 1 drop Valganciclovir (Valcyte) 450 mg PO BID [facility] Stop: 08/31/18 08:00 Last Admin: 07/16/18 09:57 Dose: 450 mg - Labs Labs: 07/19/18 09:50 07/18/18 08:07 PT 10.8 Seconds (9.8-13.1) 07/03/18 08:10 INR 1.0 07/03/18 08:10 APTT 25.9 Seconds (25.6-37.1) 07/03/18 08:10 - Constitutional Appears: No Acute Distress - Eye Exam Eye Exam: Conjunctival injection - ENT Exam ENT Exam: Mucous Membranes Moist - Respiratory Exam Respiratory Exam: NORMAL BREATHING PATTERN. absent: Chest Wall Tenderness - Cardiovascular Exam Cardiovascular Exam: absent: Gallop, JVD, Rubs - GI/Abdominal Exam GI & Abdominal Exam: Soft, Normal Bowel Sounds - Extremities Exam Extremities Exam: absent: Calf Tenderness - Back Exam Back Exam: absent: CVA tenderness (L), CVA tenderness (R) - Neurological Exam Neurological Exam: Awake - Skin Skin Exam: absent: Cyanosis Assessment and Plan (1) Acute renal failure Assessment & Plan: HUGO patient developing acute kidney injury again serum creatinine rising Sepsis Encephalopathy much better, more awake S/P Respiratory failure extubated Status post tracheostomy Hyponatremia corrected HIV/AIDS severe malnutritoon Recommendation Worsening kidney function rising creatinine Kayexalate for hyperkalemia IV fluid D5 and half-normal saline 100 to 125cc/hr If kidney function continued to get worse we will consider dialysis BMP still pending from this morning to determine the need of dialysis Urine output noted to be very good about 2000 cc consistent with nonoliguric acute renal failure Status: Acute (2) HIV (human immunodeficiency virus infection) Status: Acute
[2018-07-19 10:49] LABS: ALBUMIN 3.3 g/dL (3.5-5.0); CALCIUM 9.2 mg/dL (8.4-10.2)
[2018-07-19] MEDS ORDERED: Hydrogen Peroxide 3% Soln (480ml) TP ONE (13:00)
[2018-07-19] MEDS: Nystatin 100,000 Units/ml Oral Susp 5 ml UD PO SCH ×4 (14:19→22:00)
[2018-07-19] MEDS: Potassium Chloride 20 mEq 100 ML IVPB SCH ×2 (14:26→17:42)
--- NOTE | 2018-07-19 15:45 | CP.PCM.PN ---
Subjective - Date & Time of Evaluation Date of Evaluation: 07/19/18 Time of Evaluation: 16:00 - Subjective Subjective: F/U S/P Respiratory failure, s/p Tracheostomy Objective - Vital Signs/Intake and Output Vital Signs (last 24 hours): Temp Pulse Resp BP Pulse Ox 97.5 F L 95 H 18 135/82 97 07/19/18 00:22 07/19/18 10:20 07/19/18 08:02 07/19/18 10:20 07/19/18 08:02 Intake and Output: 07/19/18 07/19/18 06:59 18:59 Intake Total 2011 1349 Output Total 2999 1999 Balance -988 -650 - Medications Medications: Current Medications Acetaminophen (Tylenol 650 Mg Supp) 650 mg [place] Q6 PRN PRN Reason: Fever >100.4 F Last Admin: 06/20/18 02:30 Dose: 650 mg Acetaminophen (Tylenol 325mg Tab) 650 mg PO Q4 PRN PRN Reason: Fever >100.4 F Last Admin: 07/16/18 16:44 Dose: 650 mg Acetylcysteine (Mucomyst 10% 4ml) 4 ml IH RQ6 [facility] Last Admin: 07/19/18 13:56 Dose: 4 ml Albuterol/Ipratropium (Duoneb 3 Mg/0.5 Mg (3 Ml) Ud) 3 ml INH RQ6 PRN PRN Reason: Shortness of Breath Last Admin: 07/19/18 13:56 Dose: 3 ml Amlodipine Besylate (Norvasc) 5 mg PO DAILY [facility] Last Admin: 07/19/18 10:20 Dose: 5 mg Dimethicone (Proshield Plus Skin Protectant) 1 applic TOP Q8 [facility] Last Admin: 07/19/18 10:21 Dose: 1 applic Enoxaparin Sodium (Lovenox) 30 mg SC DAILY [facility]; Protocol Last Admin: 06/17/18 09:20 Dose: 30 mg Dextrose/Sodium Chloride (Dextrose 5%/0.45% Ns 1000 Ml) 1,000 mls @ 80 mls/hr IV .[id number] [facility] Stop: 07/20/18 11:16 Potassium Chloride (Potassium Chloride 20 Meq/100 Ml) 100 mls @ 50 mls/hr IVPB Q2 [facility] Stop: 07/19/18 15:59 Last Admin: 07/19/18 14:26 Dose: 50 mls/hr Insulin Human Lispro (Humalog) 0 units SC ACHS [facility]; Protocol Last Admin: 07/19/18 14:18 Dose: 3 units Lamivudine (Epivir) 300 mg PO Q48H [facility]; Protocol Last Admin: 07/18/18 14:05 Dose: 300 mg Methylprednisolone (Medrol) 4 mg PO DAILY [facility] Last Admin: 07/19/18 10:20 Dose: 4 mg Metoprolol Tartrate (Lopressor) 50 mg PO Q12 [facility] Last Admin: 07/19/18 10:19 Dose: 50 mg Nystatin (Nystop Topical Powder) 1 applic TOP TID [facility] Last Admin: 07/19/18 14:19 Dose: 1 applic Nystatin (Nystatin Oral Susp) 5 ml PO QID [facility] Last Admin: 07/19/18 14:19 Dose: 5 ml Ondansetron HCl (Zofran Inj) 4 mg IVP Q4 PRN PRN Reason: Nausea/Vomiting Last Admin: 07/05/18 21:16 Dose: 4 mg Phenylephrine HCl (Phenylephrine Opht 2.5% Soln) 1 drop OU PRN PRN PRN Reason: dilate pupils Last Admin: 07/12/18 07:09 Dose: 1 drop Raltegravir (Isentress) 400 mg PO BID [facility]; Protocol Stop: 08/05/23 17:00 Last Admin: 07/19/18 10:19 Dose: 400 mg Tenofovir Disoproxil Fumarate (Viread) 300 mg PO Q48H [facility]; Protocol Last Admin: 07/18/18 14:01 Dose: 300 mg Tropicamide (Mydriacyl 1% Opht Soln 15ml) 1 drop OU PRN PRN PRN Reason: dilate pupils Last Admin: 07/12/18 07:10 Dose: 1 drop Valganciclovir (Valcyte) 450 mg PO BID [facility] Stop: 08/31/18 08:00 Last Admin: 07/16/18 09:57 Dose: 450 mg - Labs Labs: 07/19/18 09:50 07/19/18 09:50 PT 10.8 Seconds (9.8-13.1) 07/03/18 08:10 INR 1.0 07/03/18 08:10 APTT 25.9 Seconds (25.6-37.1) 07/03/18 08:10 - Constitutional Appears: Chronically Ill - Head Exam Head Exam: NORMAL INSPECTION - Eye Exam Eye Exam: PERRL - ENT Exam ENT Exam: Normal Exam - Neck Exam Additional comments: Tracheostomy, Trach Collar - Respiratory Exam Respiratory Exam: Decreased Breath Sounds (at bases), Rhonchi - Cardiovascular Exam Cardiovascular Exam: REGULAR RHYTHM - GI/Abdominal Exam GI & Abdominal Exam: Soft, Normal Bowel Sounds - Extremities Exam Additional comments: RUE PICC line in place. - Neurological Exam Neurological Exam: Awake Additional comments: Able to follows commands, attempt to talk thought the tracheostomy. - Skin Skin Exam: Warm Assessment and Plan (1) Respiratory failure Status: Resolved (2) Tracheostomy status Status: Acute (3) Altered mental status Status: Acute (4) HIV (human immunodeficiency virus infection) Status: Acute (5) Fever Status: Resolved (6) Pneumonia Status: Resolved (7) Severe sepsis Status: Resolved (8) Acute renal failure Status: Acute (9) Diabetes mellitus Status: Acute (10) Anemia Status: Chronic
[2018-07-19] MEDS: Dextrose 5%/0.45% NS 1,000 ML IV SCH ×2 (17:40→23:45)
[2018-07-20] MEDS: Albuterol-Ipratrop 3 mg / 0.5 (3 ml) UD INH PRN ×3 (01:00→19:42)
[2018-07-20] MEDS: Acetylcysteine 10% 4 ML IH SCH ×4 (01:00→19:42)
[2018-07-20] MEDS: Proshield Plus GEL TOP SCH ×3 (01:19→17:50)
[2018-07-20] MEDS: Dextrose 5%/0.45% NS 1,000 ML IV SCH ×2 (01:39→12:23)
[2018-07-20 06:40] LABS: MEAN CELL VOLUME 89.1 fl (80.0-94.0); MEAN CORPUSCULAR HEMOGLOBIN 29.3 pg (27.0-31.0); MEAN CORPUSCULAR HGB CONC 32.9 g/dL (33.0-37.0); RBC 3.76 Mil/uL (4.40-5.90); RED CELL DISTRIBUTION WIDTH 18.7 % (11.5-14.5)
[2018-07-20 06:43] LABS: WHITE BLOOD COUNT 1.3 K/uL (4.8-10.8)
[2018-07-20 06:57] LABS: ALB/GLOB RATIO 0.9 (1.0-2.1); ALBUMIN 3.2 g/dL (3.5-5.0); CALCIUM 9.2 mg/dL (8.4-10.2)
[2018-07-20] MEDS: Insulin Lispro (humaLOG) 100 Units/ml Inj SC SCH ×4 (08:53→21:11)
--- NOTE | 2018-07-20 08:54 | RAD ---
Date of service: 07/10/2018 PROCEDURE: Modified barium swallow study. HISTORY: post intubation. Now with tracheostomy COMPARISON: None available. TECHNIQUE: Under fluoroscopic guidance, barium meals of various consistency were administered to the patient by the speech pathologist. 160.9 sec of fluoro time was utilized with a cumulative radiation dose of 6.87 mGy. FINDINGS: No penetration or aspiration was observed during this study. IMPRESSION: No penetration or aspiration observed. Please refer to the detailed report and recommendations of the speech pathologist.
[2018-07-20] MEDS: Nystatin 100,000 Units/ml Oral Susp 5 ml UD PO SCH ×4 (08:56→21:08)
[2018-07-20] MEDS ORDERED: Dextrose 5%/0.45% NS 1,000 ML IV SCH (09:42)
--- NOTE | 2018-07-20 12:52 | CP.PCM.PN ---
Subjective - Date & Time of Evaluation Date of Evaluation: 07/20/18 Time of Evaluation: 08:00 - Subjective Subjective: sboard foir HD if required een on rounds awake alert denies chest pain or sob all ARV's dose adjusted further renal on Objective - Vital Signs/Intake and Output Vital Signs (last 24 hours): Temp Pulse Resp BP Pulse Ox 98.3 F 81 18 135/88 100 07/20/18 10:00 07/20/18 10:00 07/20/18 10:00 07/20/18 10:00 07/20/18 10:00 Intake and Output: 07/20/18 07/20/18 06:59 18:59 Intake Total 1810 Output Total 1600 Balance 210 - Medications Medications: Current Medications Acetaminophen (Tylenol 650 Mg Supp) 650 mg [place] Q6 PRN PRN Reason: Fever >100.4 F Last Admin: 06/20/18 02:30 Dose: 650 mg Acetaminophen (Tylenol 325mg Tab) 650 mg PO Q4 PRN PRN Reason: Fever >100.4 F Last Admin: 07/16/18 16:44 Dose: 650 mg Acetylcysteine (Mucomyst 10% 4ml) 4 ml IH RQ6 [facility] Last Admin: 07/20/18 08:20 Dose: 4 ml Albuterol/Ipratropium (Duoneb 3 Mg/0.5 Mg (3 Ml) Ud) 3 ml INH RQ6 PRN PRN Reason: Shortness of Breath Last Admin: 07/20/18 08:20 Dose: 3 ml Amlodipine Besylate (Norvasc) 5 mg PO DAILY [facility] Last Admin: 07/20/18 08:54 Dose: 5 mg Dimethicone (Proshield Plus Skin Protectant) 1 applic TOP Q8 [facility] Last Admin: 07/20/18 09:45 Dose: 1 applic Enoxaparin Sodium (Lovenox) 30 mg SC DAILY [facility]; Protocol Last Admin: 06/17/18 09:20 Dose: 30 mg Dextrose/Sodium Chloride (Dextrose 5%/0.45% Ns 1000 Ml) 1,000 mls @ 60 mls/hr IV .[id number] [facility] Stop: 07/21/18 11:37 Last Admin: 07/20/18 12:23 Dose: 60 mls/hr Insulin Human Lispro (Humalog) 0 units SC ACHS [facility]; Protocol Last Admin: 07/20/18 12:21 Dose: Not Given Lamivudine (Epivir) 150 mg PO QOD [facility]; Protocol Methylprednisolone (Medrol) 4 mg PO DAILY [facility] Last Admin: 07/20/18 08:52 Dose: 4 mg Metoprolol Tartrate (Lopressor) 50 mg PO Q12 [facility] Last Admin: 07/20/18 09:10 Dose: 50 mg Nystatin (Nystop Topical Powder) 1 applic TOP TID [facility] Last Admin: 07/20/18 12:22 Dose: 1 applic Nystatin (Nystatin Oral Susp) 5 ml PO QID [facility] Last Admin: 07/20/18 12:22 Dose: 5 ml Ondansetron HCl (Zofran Inj) 4 mg IVP Q4 PRN PRN Reason: Nausea/Vomiting Last Admin: 07/05/18 21:16 Dose: 4 mg Phenylephrine HCl (Phenylephrine Opht 2.5% Soln) 1 drop OU PRN PRN PRN Reason: dilate pupils Last Admin: 07/12/18 07:09 Dose: 1 drop Raltegravir (Isentress) 400 mg PO BID [facility]; Protocol Stop: 08/05/23 17:00 Last Admin: 07/20/18 08:54 Dose: 400 mg Tenofovir Disoproxil Fumarate (Viread) 300 mg PO Q7D [facility]; Protocol Last Admin: 07/19/18 21:22 Dose: 300 mg Tropicamide (Mydriacyl 1% Opht Soln 15ml) 1 drop OU PRN PRN PRN Reason: dilate pupils Last Admin: 07/12/18 07:10 Dose: 1 drop Valganciclovir (Valcyte) 450 mg PO MWF [facility] Last Admin: 07/20/18 09:10 Dose: 450 mg - Labs Labs: 07/20/18 06:20 07/20/18 06:20 PT 10.8 Seconds (9.8-13.1) 07/03/18 08:10 INR 1.0 07/03/18 08:10 APTT 25.9 Seconds (25.6-37.1) 07/03/18 08:10 - Constitutional Appears: No Acute Distress, Cachectic, Chronically Ill - Head Exam Head Exam: NORMOCEPHALIC - Eye Exam Eye Exam: absent: Scleral icterus - ENT Exam ENT Exam: Mucous Membranes Dry - Neck Exam Neck Exam: absent: Lymphadenopathy - Respiratory Exam Respiratory Exam: Decreased Breath Sounds - Cardiovascular Exam Cardiovascular Exam: REGULAR RHYTHM - GI/Abdominal Exam GI & Abdominal Exam: Distended, Soft - Rectal Exam Rectal Exam: Deferred - Exam Exam: NORMAL INSPECTION - Extremities Exam Extremities Exam: absent: Pedal Edema - Back Exam Back Exam: absent: CVA tenderness (L), CVA tenderness (R) - Neurological Exam Neurological Exam: Alert, Awake, CN II-XII Intact - Psychiatric Exam Psychiatric exam: Depressed - Skin Skin Exam: Dry Assessment and Plan (1) Acute renal failure Status: Acute (2) Altered mental status Status: Acute (3) Diabetes mellitus Status: Acute (4) HIV (human immunodeficiency virus infection) Status: Acute (5) Pneumonia Status: Resolved (6) Encephalopathy Status: Acute (7) CMV (cytomegalovirus) infection Status: Acute - Assessment and Plan (Free Text) Assessment: sboard foir HD if required een on rounds awake alert denies chest pain or sob all ARV's dose adjusted further renal on
--- NOTE | 2018-07-20 13:49 | PQF ---
PROVIDER RESPONSE TEXT: Stage 2 Pressure Ulcer under the trach. REVIEWER QUERY TEXT: Pressure Ulcer Type Progress note on 07/19/18 by the casing puller: Patient has a stage 2 PI under the trach. Cleansed chantelle MONTERO, medihowilner and silver impregnated foam trach dressing applied Pressure ulcer is documented in the Medical Record. Please specify the location and stage: Location and laterality of pressure ulcer(s): POA status of each pressure ulcer: -- Not present on admission -- Present on admission -- Other -- Clinically unable to determine -- Unknown Stage of each pressure ulcer (National Pressure Ulcer Advisory Panel definitions): -- Stage I: Intact skin with non-blanchable redness of a localized area -- Stage II: Partial thickness skin loss involving dermis with a shallow open ulcer or an open serum -filled blister -- Stage III: Full thickness skin loss involving damage or necrosis of subcutaneous tissue -- Stage IV: Full thickness skin loss with exposed bone, tendon or muscle -- Unstageable: Full thickness tissue loss in which the base of the ulcer is covered by slough and/o r eschar in the wound bed The patient's Clinical Indicators include: 07/03/18 Open tracheostomy performed. Progress note on 07/19/18 by the casing puller: Patient has a stage 2 PI under the trach. Cleansed chantelle MONTERO, dakotahhowilner and silver impregnated foam trach dressing applied Query created by: Janie Yung on 07/20/2018 1:13 PM Electronically signed by: Hipolito Glover MD 07/20/2018 1:45 PM
--- NOTE | 2018-07-20 14:16 | CP.PCM.PN ---
Subjective - Date & Time of Evaluation Date of Evaluation: 07/20/18 Time of Evaluation: 13:50 - Subjective Subjective: F/U S/P Respiratory failure, s/p Tracheostomy Objective - Vital Signs/Intake and Output Vital Signs (last 24 hours): Temp Pulse Resp BP Pulse Ox 98.3 F 81 18 135/88 100 07/20/18 10:00 07/20/18 10:00 07/20/18 10:00 07/20/18 10:00 07/20/18 10:00 Intake and Output: 07/20/18 07/20/18 06:59 18:59 Intake Total 1810 Output Total 1600 Balance 210 - Medications Medications: Current Medications Acetaminophen (Tylenol 650 Mg Supp) 650 mg [place] Q6 PRN PRN Reason: Fever >100.4 F Last Admin: 06/20/18 02:30 Dose: 650 mg Acetaminophen (Tylenol 325mg Tab) 650 mg PO Q4 PRN PRN Reason: Fever >100.4 F Last Admin: 07/16/18 16:44 Dose: 650 mg Acetylcysteine (Mucomyst 10% 4ml) 4 ml IH RQ6 [facility] Last Admin: 07/20/18 13:48 Dose: Not Given Albuterol/Ipratropium (Duoneb 3 Mg/0.5 Mg (3 Ml) Ud) 3 ml INH RQ6 PRN PRN Reason: Shortness of Breath Last Admin: 07/20/18 08:20 Dose: 3 ml Amlodipine Besylate (Norvasc) 5 mg PO DAILY [facility] Last Admin: 07/20/18 08:54 Dose: 5 mg Dimethicone (Proshield Plus Skin Protectant) 1 applic TOP Q8 [facility] Last Admin: 07/20/18 09:45 Dose: 1 applic Enoxaparin Sodium (Lovenox) 30 mg SC DAILY [facility]; Protocol Last Admin: 06/17/18 09:20 Dose: 30 mg Dextrose/Sodium Chloride (Dextrose 5%/0.45% Ns 1000 Ml) 1,000 mls @ 60 mls/hr IV .[id number] [facility] Stop: 07/21/18 11:37 Last Admin: 07/20/18 12:23 Dose: 60 mls/hr Insulin Human Lispro (Humalog) 0 units SC ACHS [facility]; Protocol Last Admin: 07/20/18 12:21 Dose: Not Given Lamivudine (Epivir) 150 mg PO QOD [facility]; Protocol Methylprednisolone (Medrol) 4 mg PO DAILY [facility] Last Admin: 07/20/18 08:52 Dose: 4 mg Metoprolol Tartrate (Lopressor) 50 mg PO Q12 [facility] Last Admin: 07/20/18 09:10 Dose: 50 mg Nystatin (Nystop Topical Powder) 1 applic TOP TID [facility] Last Admin: 07/20/18 12:22 Dose: 1 applic Nystatin (Nystatin Oral Susp) 5 ml PO QID [facility] Last Admin: 07/20/18 12:22 Dose: 5 ml Ondansetron HCl (Zofran Inj) 4 mg IVP Q4 PRN PRN Reason: Nausea/Vomiting Last Admin: 07/05/18 21:16 Dose: 4 mg Phenylephrine HCl (Phenylephrine Opht 2.5% Soln) 1 drop OU PRN PRN PRN Reason: dilate pupils Last Admin: 07/12/18 07:09 Dose: 1 drop Raltegravir (Isentress) 400 mg PO BID [facility]; Protocol Stop: 08/05/23 17:00 Last Admin: 07/20/18 08:54 Dose: 400 mg Tenofovir Disoproxil Fumarate (Viread) 300 mg PO Q7D [facility]; Protocol Last Admin: 07/19/18 21:22 Dose: 300 mg Trimethoprim/Sulfamethoxazole (Bactrim Ds Tab) 1 tab PO [facility] Protocol Stop: 09/04/18 09:00 Tropicamide (Mydriacyl 1% Opht Soln 15ml) 1 drop OU PRN PRN PRN Reason: dilate pupils Last Admin: 07/12/18 07:10 Dose: 1 drop Valganciclovir (Valcyte) 450 mg PO F [facility] Last Admin: 07/20/18 09:10 Dose: 450 mg - Labs Labs: 07/20/18 06:20 07/20/18 06:20 PT 10.8 Seconds (9.8-13.1) 07/03/18 08:10 INR 1.0 07/03/18 08:10 APTT 25.9 Seconds (25.6-37.1) 07/03/18 08:10 - Constitutional Appears: Chronically Ill - Head Exam Head Exam: NORMAL INSPECTION - Eye Exam Eye Exam: PERRL - ENT Exam ENT Exam: Normal Exam - Neck Exam Additional comments: Tracheostomy, Trach Collar - Respiratory Exam Respiratory Exam: Decreased Breath Sounds (at bases), Rhonchi - Cardiovascular Exam Cardiovascular Exam: REGULAR RHYTHM - GI/Abdominal Exam GI & Abdominal Exam: Soft, Normal Bowel Sounds - Extremities Exam Additional comments: RUE PICC line in place - Neurological Exam Neurological Exam: Alert, Awake Additional comments: Able to follows commands, attempt to talk thought the tracheostomy. - Skin Skin Exam: Warm Assessment and Plan (1) Respiratory failure Status: Resolved (2) Tracheostomy status Status: Acute (3) Altered mental status Status: Acute (4) HIV (human immunodeficiency virus infection) Status: Acute (5) Fever Status: Resolved (6) Pneumonia Status: Resolved (7) Severe sepsis Status: Resolved (8) Acute renal failure Status: Acute (9) Diabetes mellitus Status: Acute (10) Anemia Status: Chronic
--- NOTE | 2018-07-20 15:02 | CP.PCM.PN ---
Subjective - Date & Time of Evaluation Date of Evaluation: 07/20/18 Time of Evaluation: 15:02 - Subjective Subjective: Patient sitting up in bed appears to be awake and he is trying to eat. Vital signs stable more awake Objective - Vital Signs/Intake and Output Vital Signs (last 24 hours): Temp Pulse Resp BP Pulse Ox 98.3 F 81 18 135/88 100 07/20/18 10:00 07/20/18 10:00 07/20/18 10:00 07/20/18 10:00 07/20/18 10:00 Intake and Output: 07/20/18 07/20/18 06:59 18:59 Intake Total 1810 Output Total 1600 Balance 210 - Medications Medications: Current Medications Acetaminophen (Tylenol 650 Mg Supp) 650 mg [place] Q6 PRN PRN Reason: Fever >100.4 F Last Admin: 06/20/18 02:30 Dose: 650 mg Acetaminophen (Tylenol 325mg Tab) 650 mg PO Q4 PRN PRN Reason: Fever >100.4 F Last Admin: 07/16/18 16:44 Dose: 650 mg Acetylcysteine (Mucomyst 10% 4ml) 4 ml IH RQ6 [facility] Last Admin: 07/20/18 13:48 Dose: Not Given Albuterol/Ipratropium (Duoneb 3 Mg/0.5 Mg (3 Ml) Ud) 3 ml INH RQ6 PRN PRN Reason: Shortness of Breath Last Admin: 07/20/18 08:20 Dose: 3 ml Amlodipine Besylate (Norvasc) 5 mg PO DAILY [facility] Last Admin: 07/20/18 08:54 Dose: 5 mg Dimethicone (Proshield Plus Skin Protectant) 1 applic TOP Q8 [facility] Last Admin: 07/20/18 09:45 Dose: 1 applic Enoxaparin Sodium (Lovenox) 30 mg SC DAILY [facility]; Protocol Last Admin: 06/17/18 09:20 Dose: 30 mg Dextrose/Sodium Chloride (Dextrose 5%/0.45% Ns 1000 Ml) 1,000 mls @ 60 mls/hr IV .[id number] [facility] Stop: 07/21/18 11:37 Last Admin: 07/20/18 12:23 Dose: 60 mls/hr Insulin Human Lispro (Humalog) 0 units SC ACHS [facility]; Protocol Last Admin: 07/20/18 12:21 Dose: Not Given Lamivudine (Epivir) 150 mg PO QOD [facility]; Protocol Methylprednisolone (Medrol) 4 mg PO DAILY [facility] Last Admin: 07/20/18 08:52 Dose: 4 mg Metoprolol Tartrate (Lopressor) 50 mg PO Q12 [facility] Last Admin: 07/20/18 09:10 Dose: 50 mg Nystatin (Nystop Topical Powder) 1 applic TOP TID [facility] Last Admin: 07/20/18 12:22 Dose: 1 applic Nystatin (Nystatin Oral Susp) 5 ml PO QID [facility] Last Admin: 07/20/18 12:22 Dose: 5 ml Ondansetron HCl (Zofran Inj) 4 mg IVP Q4 PRN PRN Reason: Nausea/Vomiting Last Admin: 07/05/18 21:16 Dose: 4 mg Phenylephrine HCl (Phenylephrine Opht 2.5% Soln) 1 drop OU PRN PRN PRN Reason: dilate pupils Last Admin: 07/12/18 07:09 Dose: 1 drop Raltegravir (Isentress) 400 mg PO BID [facility]; Protocol Stop: 08/05/23 17:00 Last Admin: 07/20/18 08:54 Dose: 400 mg Tenofovir Disoproxil Fumarate (Viread) 300 mg PO Q7D [facility]; Protocol Last Admin: 07/19/18 21:22 Dose: 300 mg Trimethoprim/Sulfamethoxazole (Bactrim Ds Tab) 1 tab PO [facility]; Protocol Stop: 09/04/18 09:00 Tropicamide (Mydriacyl 1% Opht Soln 15ml) 1 drop OU PRN PRN PRN Reason: dilate pupils Last Admin: 07/12/18 07:10 Dose: 1 drop Valganciclovir (Valcyte) 450 mg PO MWF [facility] Last Admin: 07/20/18 09:10 Dose: 450 mg - Labs Labs: 07/20/18 06:20 07/20/18 06:20 PT 10.8 Seconds (9.8-13.1) 07/03/18 08:10 INR 1.0 07/03/18 08:10 APTT 25.9 Seconds (25.6-37.1) 07/03/18 08:10 - Constitutional Appears: No Acute Distress - Eye Exam Eye Exam: Conjunctival injection - ENT Exam ENT Exam: Mucous Membranes Moist - Neck Exam Neck Exam: absent: Lymphadenopathy - Respiratory Exam Respiratory Exam: NORMAL BREATHING PATTERN - Cardiovascular Exam Cardiovascular Exam: absent: Gallop, JVD, Rubs - GI/Abdominal Exam GI & Abdominal Exam: Soft, Normal Bowel Sounds - Extremities Exam Extremities Exam: absent: Calf Tenderness - Back Exam Back Exam: absent: CVA tenderness (L), CVA tenderness (R) - Neurological Exam Neurological Exam: Alert - Skin Skin Exam: absent: Cyanosis Assessment and Plan (1) Acute renal failure Assessment & Plan: HUGO patient developing acute kidney injury again and recovering again creat trending down Sepsis recovering Encephalopathy much better, more awake S/P Respiratory failure extubated Status post tracheostomy Hyponatremia corrected HIV/AIDS malnutritoon Plan Patient recovering from acute kidney injury again serum creatinine trending down rapidly. Cut down IV fluid to around 50-60 cc/h as discussed with the nurse practitioner. Keep monitoring electrolyte Status: Acute (2) HIV (human immunodeficiency virus infection) Status: Acute
[2018-07-21] MEDS: Acetylcysteine 10% 4 ML IH SCH ×5 (00:48→19:39)
[2018-07-21] MEDS: Albuterol-Ipratrop 3 mg / 0.5 (3 ml) UD INH PRN (00:49)
[2018-07-21] MEDS: Proshield Plus GEL TOP SCH ×3 (01:03→16:01)
[2018-07-21 06:57] LABS: HEMOGLOBIN 11.1 g/dL (12.0-18.0); MEAN CELL VOLUME 89.7 fl (80.0-94.0); MEAN CORPUSCULAR HEMOGLOBIN 29.7 pg (27.0-31.0); MEAN CORPUSCULAR HGB CONC 33.2 g/dL (33.0-37.0); RBC 3.72 Mil/uL (4.40-5.90); RED CELL DISTRIBUTION WIDTH 18.9 % (11.5-14.5)
[2018-07-21] MEDS: Dextrose 5%/0.45% NS 1,000 ML IV SCH (07:00)
[2018-07-21 07:07] LABS: WHITE BLOOD COUNT 0.9 K/uL (4.8-10.8)
[2018-07-21 07:17] LABS: ALB/GLOB RATIO 0.9 (1.0-2.1); ALBUMIN 3.2 g/dL (3.5-5.0); CALCIUM 9.4 mg/dL (8.4-10.2)
[2018-07-21] MEDS: Insulin Lispro (humaLOG) 100 Units/ml Inj SC SCH ×4 (08:05→21:09)
[2018-07-21] MEDS: Nystatin 100,000 Units/ml Oral Susp 5 ml UD PO SCH ×4 (08:48→21:09)
[2018-07-21] MEDS ORDERED: Potassium Chloride 20 mEq ER Tab PO ONE (10:09)
--- NOTE | 2018-07-21 10:18 | CP.PCM.CON ---
History of Present Illness - History of Present Illness History of Present Illness: This is a 67 yr old male with h/o multiple medical issues admitted because of altered mental status and dizziness and being treated for acute kidney failure and sepsis and psych consult called for evaluation of agitation and combative behaviors,Pt has remained nonverbal due to tracheostomy and barely able to communicate byvwhispering and writing down.pt is very confused and has no understanding of his current medical condition.pt s mental status waxes and wane which is typical of delirium. Past Patient History - Past Social History Smoking Status: Never Smoked Alcohol: None (Pt deied) Drugs: Denies (Pt denied.) Home Situation {Lives}: Alone - CARDIAC Hx Pacemaker: No - PULMONARY Hx Pneumonia: Yes - HEMATOLOGICAL/ONCOLOGICAL Hx Cancer: No - MUSCULOSKELETAL/RHEUMATOLOGICAL Hx Falls: No - PSYCHIATRIC Hx Substance Use: No - SURGICAL HISTORY Hx Mastectomy: No Meds Allergies/Adverse Reactions: Allergies Allergy/AdvReac Type Severity Reaction Status Date / Time Unobtainable Allergy Verified 06/11/18 20:48 - Medications Medications: Current Medications Acetaminophen (Tylenol 650 Mg Supp) [address] Q6 PRN PRN Reason: Fever >100.4 F Last Admin: 06/20/18 02:30 Dose: 650 mg Acetaminophen (Tylenol 325mg Tab) 650 mg PO Q4 PRN PRN Reason: Fever >100.4 F Last Admin: 07/16/18 16:44 Dose: 650 mg Acetylcysteine (Mucomyst 10% 4ml) 4 ml IH RQ6 [facility] Last Admin: 07/21/18 07:35 Dose: Not Given Albuterol/Ipratropium (Duoneb 3 Mg/0.5 Mg (3 Ml) Ud) 3 ml INH RQ6 PRN PRN Reason: Shortness of Breath Last Admin: 07/21/18 00:49 Dose: 3 ml Amlodipine Besylate (Norvasc) 5 mg PO DAILY [facility] Last Admin: 07/21/18 08:50 Dose: 5 mg Dimethicone (Proshield Plus Skin Protectant) 1 applic TOP Q8 [facility] Last Admin: 07/21/18 08:51 Dose: 1 applic Enoxaparin Sodium (Lovenox) 30 mg SC DAILY [facility]; Protocol Last Admin: 06/17/18 09:20 Dose: 30 mg Haloperidol Lactate (Haldol) 0.5 mg IVP Q6 PRN PRN Reason: Agitation Dextrose/Sodium Chloride (Dextrose 5%/0.45% Ns 1000 Ml) 1,000 mls @ 60 mls/hr IV .[id number] [facility] Stop: 07/21/18 11:37 Last Admin: 07/21/18 07:00 Dose: 60 mls/hr Insulin Human Lispro (Humalog) 0 units SC ACHS [facility]; Protocol Last Admin: 07/21/18 08:05 Dose: Not Given Lamivudine (Epivir) 150 mg PO QOD [facility]; Protocol Methylprednisolone (Medrol) 4 mg PO DAILY [facility] Last Admin: 07/21/18 08:50 Dose: 4 mg Metoprolol Tartrate (Lopressor) 50 mg PO Q12 [facility] Last Admin: 07/21/18 08:53 Dose: 50 mg Nystatin (Nystop Topical Powder) 1 applic TOP TID [facility] Last Admin: 07/21/18 08:51 Dose: 1 applic Nystatin (Nystatin Oral Susp) 5 ml PO QID [facility] Last Admin: 07/21/18 08:48 Dose: 5 ml Ondansetron HCl (Zofran Inj) 4 mg IVP Q4 PRN PRN Reason: Nausea/Vomiting Last Admin: 07/05/18 21:16 Dose: 4 mg Phenylephrine HCl (Phenylephrine Opht 2.5% Soln) 1 drop OU PRN PRN PRN Reason: dilate pupils Last Admin: 07/12/18 07:09 Dose: 1 drop Potassium Chloride (K-Dur 20 Meq Er Tab) 20 meq PO ONCE ONE Stop: 07/21/18 10:10 Raltegravir (Isentress) 400 mg PO BID [facility]; Protocol Stop: 08/05/23 17:00 Last Admin: 07/21/18 08:49 Dose: 400 mg Tenofovir Disoproxil Fumarate (Viread) 300 mg PO Q7D [facility]; Protocol Last Admin: 07/20/18 17:51 Dose: 300 mg Trimethoprim/Sulfamethoxazole (Bactrim Ds Tab) [address] [facility]; Protocol Stop: 09/04/18 09:00 Tropicamide (Mydriacyl 1% Opht Soln 15ml) 1 drop OU PRN PRN PRN Reason: dilate pupils Last Admin: 07/12/18 07:10 Dose: 1 drop Valganciclovir (Valcyte) [address] [facility] Last Admin: 07/20/18 09:10 Dose: 450 mg Physical Exam - Psychiatric Exam Psychiatric exam: Agitated, Flat Affect Additional comments: Pt appears lethargic now after a period of agitation and restlessness and remains confused and disoriented.Pt has poor memory and mood is anxious with blunted affect.poor insight and poor judgement .no overt suicidal ideation.no psychosis. Results - Vital Signs Recent Vital Signs: Last Vital Signs Temp 98.2 F 07/21/18 08:04 Pulse 68 07/21/18 08:04 Resp 20 07/21/18 08:04 BP 131/82 07/21/18 08:04 Pulse Ox 97 07/21/18 08:04 - Labs Result Diagrams: 07/22/18 05:45 07/21/18 05:45 Labs: Laboratory Results - last 24 hr 07/20/18 07/20/18 07/21/18 16:02 21:00 05:43 WBC RBC Hgb Hct MCV MCH MCHC RDW Plt Count Sodium Potassium Chloride Carbon Dioxide Anion Gap BUN Creatinine Est GFR ( Amer) Est GFR (Non-Af Amer) POC Glucose (mg/dL) 222 H 77 116 H Random Glucose Calcium Total Bilirubin AST ALT Alkaline Phosphatase Total Protein Albumin Globulin Albumin/Globulin Ratio 07/21/18 07/21/18 05:45 05:45 WBC 0.9 L* RBC 3.72 L Hgb 11.1 L Hct 33.3 L MCV 89.7 MCH 29.7 MCHC 33.2 RDW 18.9 H Plt Count 218 Sodium 139 Potassium 3.5 L Chloride 103 Carbon Dioxide 23 Anion Gap 17 BUN 22 H Creatinine 1.7 H Est GFR ( Amer) 49 Est GFR (Non-Af Amer) 41 POC Glucose (mg/dL) Random Glucose 118 H Calcium 9.4 Total Bilirubin 0.7 AST 21 ALT 26 Alkaline Phosphatase 113 Total Protein 6.6 Albumin 3.2 L Globulin 3.4 Albumin/Globulin Ratio 0.9 L Assessment & Plan - Assessment and Plan (Free Text) Assessment: Delirium with behavioral agitation related toxic metabolic changes due to AFR Neurocognitive disorder with behavioral disturbances. Plan: Will maintain pt on close observation and provide quiet environment with minimal light and stimulation Meducal stabilization of possible cause of delirium. Haldol 2 mg po q tid prn severe agitation due to delirium and Ativen 0.5 mg I /V q6 hr prn severe agitation. Alert psychiatry if increase in agitation.
--- NOTE | 2018-07-21 14:46 | CP.PCM.PN ---
Subjective - Date & Time of Evaluation Date of Evaluation: 07/21/18 Time of Evaluation: 14:10 - Subjective Subjective: F/U S/P Respiratory Failure, s/p Tracheostomy. awake , attempt to talk , Tracheostomy in place, off O2 Objective - Vital Signs/Intake and Output Vital Signs (last 24 hours): Temp Pulse Resp BP Pulse Ox 98.2 F 68 20 131/82 97 07/21/18 08:04 07/21/18 08:04 07/21/18 08:04 07/21/18 08:04 07/21/18 08:04 - Medications Medications: Current Medications Acetaminophen (Tylenol 650 Mg Supp) 650 mg [place] Q6 PRN PRN Reason: Fever >100.4 F Last Admin: 06/20/18 02:30 Dose: 650 mg Acetaminophen (Tylenol 325mg Tab) 650 mg PO Q4 PRN PRN Reason: Fever >100.4 F Last Admin: 07/16/18 16:44 Dose: 650 mg Acetylcysteine (Mucomyst 10% 4ml) 4 ml IH RQ6 [facility] Last Admin: 07/21/18 13:09 Dose: Not Given Albuterol/Ipratropium (Duoneb 3 Mg/0.5 Mg (3 Ml) Ud) 3 ml INH RQ6 PRN PRN Reason: Shortness of Breath Last Admin: 07/21/18 00:49 Dose: 3 ml Amlodipine Besylate (Norvasc) 5 mg PO DAILY [facility] Last Admin: 07/21/18 08:50 Dose: 5 mg Dimethicone (Proshield Plus Skin Protectant) 1 applic TOP Q8 [facility] Last Admin: 07/21/18 08:51 Dose: 1 applic Enoxaparin Sodium (Lovenox) 30 mg SC DAILY [facility]; Protocol Last Admin: 06/17/18 09:20 Dose: 30 mg Haloperidol (Haldol) 2 mg PO TID PRN PRN Reason: Agitation Haloperidol Lactate (Haldol) 0.5 mg IVP Q6 PRN PRN Reason: Agitation Insulin Human Lispro (Humalog) 0 units SC ACHS [facility]; Protocol Last Admin: 07/21/18 12:33 Dose: 2 units Lamivudine (Epivir) 150 mg PO QOD [facility]; Protocol Lorazepam (Ativan) 0.5 mg IVP Q6 PRN PRN Reason: Agitation Methylprednisolone (Medrol) 4 mg PO DAILY [facility] Last Admin: 07/21/18 08:50 Dose: 4 mg Metoprolol Tartrate (Lopressor) 50 mg PO Q12 [facility] Last Admin: 07/21/18 08:53 Dose: 50 mg Nystatin (Nystop Topical Powder) 1 applic TOP TID [facility] Last Admin: 07/21/18 12:34 Dose: 1 applic Nystatin (Nystatin Oral Susp) 5 ml PO QID [facility] Last Admin: 07/21/18 12:35 Dose: 5 ml Ondansetron HCl (Zofran Inj) 4 mg IVP Q4 PRN PRN Reason: Nausea/Vomiting Last Admin: 07/05/18 21:16 Dose: 4 mg Phenylephrine HCl (Phenylephrine Opht 2.5% Soln) 1 drop OU PRN PRN PRN Reason: dilate pupils Last Admin: 07/12/18 07:09 Dose: 1 drop Raltegravir (Isentress) 400 mg PO BID [facility]; Protocol Stop: 08/05/23 17:00 Last Admin: 07/21/18 08:49 Dose: 400 mg Tenofovir Disoproxil Fumarate (Viread) 300 mg PO Q7D [facility]; Protocol Last Admin: 07/20/18 17:51 Dose: 300 mg Trimethoprim/Sulfamethoxazole (Bactrim Ds Tab) 1 tab PO [facility] [place]; Protocol Stop: 09/04/18 09:00 Tropicamide (Mydriacyl 1% Opht Soln 15ml) 1 drop OU PRN PRN PRN Reason: dilate pupils Last Admin: 07/12/18 07:10 Dose: 1 drop Valganciclovir (Valcyte) 450 mg PO [facility] Last Admin: 07/20/18 09:10 Dose: 450 mg - Labs Labs: 07/21/18 05:45 07/21/18 05:45 PT 10.8 Seconds (9.8-13.1) 07/03/18 08:10 INR 1.0 07/03/18 08:10 APTT 25.9 Seconds (25.6-37.1) 07/03/18 08:10 - Constitutional Appears: Chronically Ill - Head Exam Head Exam: NORMAL INSPECTION - Eye Exam Eye Exam: PERRL - ENT Exam ENT Exam: Normal Exam - Neck Exam Additional comments: Tracheostomy - Respiratory Exam Respiratory Exam: Decreased Breath Sounds (at bases), Rhonchi - Cardiovascular Exam Cardiovascular Exam: REGULAR RHYTHM - GI/Abdominal Exam GI & Abdominal Exam: Soft, Normal Bowel Sounds - Extremities Exam Extremities Exam: absent: Pedal Edema Additional comments: RUE PICC line. - Neurological Exam Neurological Exam: Awake Additional comments: Able to follow commands, attempt to talk, moving extremities on commands. - Psychiatric Exam Psychiatric exam: Depressed - Skin Skin Exam: Warm Assessment and Plan (1) Respiratory failure Status: Resolved (2) Tracheostomy status Status: Acute (3) Altered mental status Status: Acute (4) HIV (human immunodeficiency virus infection) Status: Acute (5) Fever Status: Resolved (6) Pneumonia Status: Resolved (7) Severe sepsis Status: Resolved (8) Acute renal failure Status: Acute (9) Diabetes mellitus Status: Acute (10) Anemia Status: Chronic (11) Leukopenia Status: Acute - Assessment and Plan (Free Text) Plan: Leukopenia 0.9 , f/u Hematology consult, continue Abx, HAART, HUGO improved, continue rest of Tx
--- NOTE | 2018-07-21 16:14 | CP.PCM.PN ---
Subjective - Date & Time of Evaluation Date of Evaluation: 07/21/18 Time of Evaluation: 16:13 - Subjective Subjective: Nephrology Consultation Note Assessment: Stable HUGO improving Sepsis Encephalopathy Respiratory failure Hyponatremia HIV/AIDS severe malnutritoon CMV viremia Hypokalemia Plan No acute need for renal replacement therapy at this time. Hypertension control with meds as ordered. Maintain hemodynamics stable. Avoid hypotension. Patient not on ACEI/ARB due to recent HUGO Monitor Input/Output, daily weights and renal function with basic metabolic panel pt on haart supplement lytes a sneeded Dose meds/antibiotics for improved GFR. Avoid nephrotoxins/NSAIDs/ iodinated contrast (unless needed emergently) Glycemic control Further work up for as per primary team Thanks for allowing me to participate in care of your patient. Will follow patient with you. Please call if any Qs. had d/w team Dr Keven Sewell Office: [phone] Subjective: Noted events overnight. Patients feels okay. Physical Examination: General Appearance: Comfortable, in no acute respiratory distress, co-operative . ill appearing and cachexic Vitals reviewed and noted as below Head; Atraumatic, normocephalic ENT: s/p trach Neck; supple no lymphadenopathy, no thyromegaly or bruit Lungs: Normal respiratory rate/effort. Breath sounds bilateral equal and clear anteriorly Heart: Normal rate. s1s2 normal. No rub or gallop. Extremities: no edema. No varicose veins Neurological: Patient is alert, awake and lue weakness Skin: Warm and dry. Normal turgor. No rash. Palpitation: Normal elasticity for age Abdomen: Abdomen is soft. Bowel sounds +. There is no abdominal tenderness, no guarding/rigidity no organomegaly Psych: unable MSK: no joint tenderness or swelling. Digits and nails normal, no deformity : kidney or bladder not palpable Labs/imaging reviewed. Past medical history, past surgical history, family history, social history, allergy reviewed and noted as below Family hx: no hx of CKD. Rest non-contributory Objective - Vital Signs/Intake and Output Vital Signs (last 24 hours): Temp Pulse Resp BP Pulse Ox 97 F L 78 20 125/76 100 07/21/18 15:48 07/21/18 15:48 07/21/18 15:48 07/21/18 15:48 07/21/18 15:48 - Medications Medications: Current Medications Acetaminophen (Tylenol 650 Mg Supp) [address] Q6 PRN PRN Reason: Fever >100.4 F Last Admin: 06/20/18 02:30 Dose: 650 mg Acetaminophen (Tylenol 325mg Tab) 650 mg PO Q4 PRN PRN Reason: Fever >100.4 F Last Admin: 07/16/18 16:44 Dose: 650 mg Acetylcysteine (Mucomyst 10% 4ml) 4 ml IH RQ6 [facility] Last Admin: 07/21/18 13:09 Dose: Not Given Albuterol/Ipratropium (Duoneb 3 Mg/0.5 Mg (3 Ml) Ud) 3 ml INH RQ6 PRN PRN Reason: Shortness of Breath Last Admin: 07/21/18 00:49 Dose: 3 ml Amlodipine Besylate (Norvasc) 5 mg PO DAILY [facility] Last Admin: 07/21/18 08:50 Dose: 5 mg Dimethicone (Proshield Plus Skin Protectant) 1 applic TOP Q8 [facility] Last Admin: 07/21/18 16:01 Dose: 1 applic Enoxaparin Sodium (Lovenox) 30 mg SC DAILY [facility]; Protocol Last Admin: 06/17/18 09:20 Dose: 30 mg Haloperidol (Haldol) 2 mg PO TID PRN PRN Reason: Agitation Haloperidol Lactate (Haldol) 0.5 mg IVP Q6 PRN PRN Reason: Agitation Insulin Human Lispro (Humalog) 0 units SC ACHS [facility]; Protocol Last Admin: 07/21/18 16:01 Dose: 1 units Lamivudine (Epivir) 150 mg PO QOD [facility]; Protocol Lorazepam (Ativan) 0.5 mg IVP Q6 PRN PRN Reason: Agitation Methylprednisolone (Medrol) 4 mg PO DAILY [facility] Last Admin: 07/21/18 08:50 Dose: 4 mg Metoprolol Tartrate (Lopressor) 50 mg PO Q12 [facility] Last Admin: 07/21/18 08:53 Dose: 50 mg Nystatin (Nystop Topical Powder) 1 applic TOP TID [facility] Last Admin: 07/21/18 16:02 Dose: 1 applic Nystatin (Nystatin Oral Susp) 5 ml PO QID [facility] Last Admin: 07/21/18 16:00 Dose: 5 ml Ondansetron HCl (Zofran Inj) 4 mg IVP Q4 PRN PRN Reason: Nausea/Vomiting Last Admin: 07/05/18 21:16 Dose: 4 mg Phenylephrine HCl (Phenylephrine Opht 2.5% Soln) 1 drop OU PRN PRN PRN Reason: dilate pupils Last Admin: 07/12/18 07:09 Dose: 1 drop Raltegravir (Isentress) 400 mg PO BID [facility]; Protocol Stop: 08/05/23 17:00 Last Admin: 07/21/18 16:01 Dose: 400 mg Tenofovir Disoproxil Fumarate (Viread) 300 mg PO Q7D [facility]; Protocol Last Admin: 07/20/18 17:51 Dose: 300 mg Trimethoprim/Sulfamethoxazole (Bactrim Ds Tab) 1 tab PO [facility]; Protocol Stop: 09/04/18 09:00 Tropicamide (Mydriacyl 1% Opht Soln 15ml) 1 drop OU PRN PRN PRN Reason: dilate pupils Last Admin: 07/12/18 07:10 Dose: 1 drop Valganciclovir (Valcyte) 450 mg PO [facility] Last Admin: 07/20/18 09:10 Dose: 450 mg - Labs Labs: 07/21/18 05:45 07/21/18 05:45 PT 10.8 Seconds (9.8-13.1) 07/03/18 08:10 INR 1.0 07/03/18 08:10 APTT 25.9 Seconds (25.6-37.1) 07/03/18 08:10
--- NOTE | 2018-07-21 19:12 | CP.PCM.CON ---
History of Present Illness - History of Present Illness History of Present Illness: 67 year old male with prolonged hospital course with HIV/AIDS, pneumonia, renal failure, CMV infection, anemia, and progressive leukopenia/neutropenia. I am unable to obtain a history from the patient. Review of his medical records s hows his was admitted with a normal WBC which has nadired at 0.9 today. He has required PRBC transfusion during his admission, with no evidence of significant blood loss. Past medical, surgical, family, social history cannot be obtained from the patient. Allergies: Unobtainable Review of systems cannot be obtained. Past Patient History - Past Social History Smoking Status: Never Smoked Alcohol: None (Pt deied) Drugs: Denies (Pt denied.) Home Situation {Lives}: Alone - CARDIAC Hx Pacemaker: No - PULMONARY Hx Pneumonia: Yes - HEMATOLOGICAL/ONCOLOGICAL Hx Cancer: No - MUSCULOSKELETAL/RHEUMATOLOGICAL Hx Falls: No - PSYCHIATRIC Hx Substance Use: No - SURGICAL HISTORY Hx Mastectomy: No Meds Allergies/Adverse Reactions: Allergies Allergy/AdvReac Type Severity Reaction Status Date / Time Unobtainable Allergy Verified 06/11/18 20:48 - Medications Medications: Current Medications Acetaminophen (Tylenol 650 Mg Supp) 650 mg [place] Q6 PRN PRN Reason: Fever >100.4 F Last Admin: 06/20/18 02:30 Dose: 650 mg Acetaminophen (Tylenol 325mg Tab) 650 mg PO Q4 PRN PRN Reason: Fever >100.4 F Last Admin: 07/16/18 16:44 Dose: 650 mg Acetylcysteine (Mucomyst 10% 4ml) 4 ml IH RQ6 [facility] Last Admin: 07/21/18 13:09 Dose: Not Given Albuterol/Ipratropium (Duoneb 3 Mg/0.5 Mg (3 Ml) Ud) 3 ml INH RQ6 PRN PRN Reason: Shortness of Breath Last Admin: 07/21/18 00:49 Dose: 3 ml Amlodipine Besylate (Norvasc) 5 mg PO DAILY [facility] Last Admin: 07/21/18 08:50 Dose: 5 mg Dimethicone (Proshield Plus Skin Protectant) 1 applic TOP Q8 [facility] Last Admin: 07/21/18 16:01 Dose: 1 applic Enoxaparin Sodium (Lovenox) 30 mg SC DAILY [facility]; Protocol Last Admin: 06/17/18 09:20 Dose: 30 mg Haloperidol (Haldol) 2 mg PO TID PRN PRN Reason: Agitation Haloperidol Lactate (Haldol) 0.5 mg IVP Q6 PRN PRN Reason: Agitation Insulin Human Lispro (Humalog) 0 units SC ACHS [facility]; Protocol Last Admin: 07/21/18 16:01 Dose: 1 units Lamivudine (Epivir) 150 mg PO QOD [facility]; Protocol Lorazepam (Ativan) 0.5 mg IVP Q6 PRN PRN Reason: Agitation Methylprednisolone (Medrol) 4 mg PO DAILY [facility] Last Admin: 07/21/18 08:50 Dose: 4 mg Metoprolol Tartrate (Lopressor) 50 mg PO Q12 [facility] Last Admin: 07/21/18 08:53 Dose: 50 mg Nystatin (Nystop Topical Powder) 1 applic TOP TID [facility] Last Admin: 07/21/18 16:02 Dose: 1 applic Nystatin (Nystatin Oral Susp) 5 ml PO QID [facility] Last Admin: 07/21/18 16:00 Dose: 5 ml Ondansetron HCl (Zofran Inj) 4 mg IVP Q4 PRN PRN Reason: Nausea/Vomiting Last Admin: 07/05/18 21:16 Dose: 4 mg Phenylephrine HCl (Phenylephrine Opht 2.5% Soln) 1 drop OU PRN PRN PRN Reason: dilate pupils Last Admin: 07/12/18 07:09 Dose: 1 drop Raltegravir (Isentress) 400 mg PO BID [facility]; Protocol Stop: 08/05/23 17:00 Last Admin: 07/21/18 16:01 Dose: 400 mg Tenofovir Disoproxil Fumarate (Viread) 300 mg PO Q7D [facility]; Protocol Last Admin: 07/20/18 17:51 Dose: 300 mg Trimethoprim/Sulfamethoxazole (Bactrim Ds Tab) 1 tab PO [facility] [place]; Protocol Stop: 09/04/18 09:00 Tropicamide (Mydriacyl 1% Opht Soln 15ml) 1 drop OU PRN PRN PRN Reason: dilate pupils Last Admin: 07/12/18 07:10 Dose: 1 drop Valganciclovir (Valcyte) 450 mg PO [facility] Last Admin: 07/20/18 09:10 Dose: 450 mg Physical Exam - Head Exam Head Exam: ATRAUMATIC - Eye Exam Eye Exam: Normal appearance - ENT Exam ENT Exam: Mucous Membranes Dry - Respiratory Exam Respiratory Exam: NORMAL BREATHING PATTERN - Cardiovascular Exam Cardiovascular Exam: +S1, +S2 - GI/Abdominal Exam GI & Abdominal Exam: Normal Bowel Sounds - Neurological Exam Neurological exam: Altered - Psychiatric Exam Psychiatric exam: Flat Affect - Skin Skin Exam: Warm Results - Vital Signs Recent Vital Signs: Last Vital Signs Temp 97 F L 07/21/18 15:48 Pulse 78 07/21/18 15:48 Resp 20 07/21/18 15:48 BP 125/76 07/21/18 15:48 Pulse Ox 100 07/21/18 15:48 - Labs Result Diagrams: 07/21/18 05:45 07/21/18 05:45 Labs: Laboratory Results - last 24 hr 07/20/18 07/21/18 07/21/18 21:00 05:43 05:45 WBC 0.9 L* RBC 3.72 L Hgb 11.1 L Hct 33.3 L MCV 89.7 MCH 29.7 MCHC 33.2 RDW 18.9 H Plt Count 218 Sodium Potassium Chloride Carbon Dioxide Anion Gap BUN Creatinine Est GFR ( Amer) Est GFR (Non-Af Amer) POC Glucose (mg/dL) 77 116 H Random Glucose Calcium Total Bilirubin AST ALT Alkaline Phosphatase Total Protein Albumin Globulin Albumin/Globulin Ratio 07/21/18 07/21/18 07/21/18 05:45 11:12 15:28 WBC RBC Hgb Hct MCV MCH MCHC RDW Plt Count Sodium 139 Potassium 3.5 L Chloride 103 Carbon Dioxide 23 Anion Gap 17 BUN 22 H Creatinine 1.7 H Est GFR ( Amer) 49 Est GFR (Non-Af Amer) 41 POC Glucose (mg/dL) 209 H 170 H Random Glucose 118 H Calcium 9.4 Total Bilirubin 0.7 AST 21 ALT 26 Alkaline Phosphatase 113 Total Protein 6.6 Albumin 3.2 L Globulin 3.4 Albumin/Globulin Ratio 0.9 L Assessment & Plan (1) Leukopenia Assessment and Plan: multifactorial HIV/AIDS, meds (bactrim and antivirals) given importance of continuing infectious treatment, recommend continuing abx/antivirals will add growth factor support add differential to CBC Status: Acute (2) Anemia Assessment and Plan: retic count, b12, folate, ferritin, FOBT to further characterize likely anemia of chronic disease and anemia of HIV ? CKD - anemia of CKD Thank you for this interesting consult. Status: Chronic
[2018-07-22] MEDS: Proshield Plus GEL TOP SCH ×3 (00:46→18:50)
[2018-07-22] MEDS: Dextrose 5%/0.45% NS 1,000 ML IV SCH ×2 (00:54→13:52)
[2018-07-22] MEDS: Acetylcysteine 10% 4 ML IH SCH ×4 (01:00→19:43)
[2018-07-22 06:53] LABS: BASO % 1.1 % (0.0-2.0); EOS % 0.3 % (0.0-4.0); HEMOGLOBIN 11.4 g/dL (12.0-18.0); LYMPH # 0.2 K/uL (1.0-4.3); LYMPH % 15.1 % (20.0-40.0); MEAN CELL VOLUME 89.1 fl (80.0-94.0); MEAN CORPUSCULAR HEMOGLOBIN 29.3 pg (27.0-31.0); MEAN CORPUSCULAR HGB CONC 32.9 g/dL (33.0-37.0); MEAN PLATELET VOLUME 8.6 fl (7.2-11.7); NEUT % 81.5 % (50.0-75.0); NRBC % 0.3 % (0.0-0.0); RBC 3.9 Mil/uL (4.40-5.90); RED CELL DISTRIBUTION WIDTH 18.7 % (11.5-14.5)
[2018-07-22 07:02] LABS: WHITE BLOOD COUNT 1.2 K/uL (4.8-10.8)
[2018-07-22] MEDS: Albuterol-Ipratrop 3 mg / 0.5 (3 ml) UD INH PRN (08:12)
[2018-07-22] MEDS: Insulin Lispro (humaLOG) 100 Units/ml Inj SC SCH ×4 (08:41→21:49)
[2018-07-22] MEDS: Nystatin 100,000 Units/ml Oral Susp 5 ml UD PO SCH ×5 (08:44→21:13)
--- NOTE | 2018-07-22 12:35 | CP.PCM.PN ---
Subjective - Date & Time of Evaluation Date of Evaluation: 07/22/18 Time of Evaluation: 09:00 - Subjective Subjective: renal impairment improving WBC low- starte on Neupogen awake alert afebrile NAD Objective - Vital Signs/Intake and Output Vital Signs (last 24 hours): Temp Pulse Resp BP Pulse Ox 97.6 F 75 19 135/91 H 100 07/22/18 08:05 07/22/18 08:46 07/22/18 08:05 07/22/18 08:46 07/22/18 08:05 Intake and Output: 07/22/18 07/22/18 06:59 18:59 Intake Total 840 Output Total 850 Balance -10 - Medications Medications: Current Medications Acetaminophen (Tylenol 650 Mg Supp) 650 mg ND Q6 PRN PRN Reason: Fever >100.4 F Last Admin: 06/20/18 02:30 Dose: 650 mg Acetaminophen (Tylenol 325mg Tab) 650 mg PO Q4 PRN PRN Reason: Fever >100.4 F Last Admin: 07/16/18 16:44 Dose: 650 mg Acetylcysteine (Mucomyst 10% 4ml) 4 ml IH RQ6 [facility] Last Admin: 07/22/18 08:12 Dose: 4 ml Albuterol/Ipratropium (Duoneb 3 Mg/0.5 Mg (3 Ml) Ud) 3 ml INH RQ6 PRN PRN Reason: Shortness of Breath Last Admin: 07/22/18 08:12 Dose: 3 ml Amlodipine Besylate (Norvasc) 5 mg PO DAILY [facility] Last Admin: 07/22/18 08:43 Dose: 5 mg Dimethicone (Proshield Plus Skin Protectant) 1 applic TOP Q8 [facility] Last Admin: 07/22/18 08:44 Dose: 1 applic Enoxaparin Sodium (Lovenox) 30 mg SC DAILY [facility]; Protocol Last Admin: 06/17/18 09:20 Dose: 30 mg Haloperidol (Haldol) 2 mg PO TID PRN PRN Reason: Agitation Haloperidol Lactate (Haldol) 0.5 mg IVP Q6 PRN PRN Reason: Agitation Dextrose/Sodium Chloride (Dextrose 5%/0.45% Ns 1000 Ml) 1,000 mls @ 80 mls/hr IV .[id number] [facility] Stop: 07/23/18 00:52 Last Admin: 07/22/18 00:54 Dose: 80 mls/hr Insulin Human Lispro (Humalog) 0 units SC ACHS [facility]; Protocol Last Admin: 07/22/18 08:41 Dose: 1 units Lamivudine (Epivir) 150 mg PO QOD [facility]; Protocol Lorazepam (Ativan) 0.5 mg IVP Q6 PRN PRN Reason: Agitation Last Admin: 07/21/18 19:26 Dose: 0.5 mg Methylprednisolone (Medrol) 4 mg PO DAILY [facility] Last Admin: 07/22/18 08:43 Dose: 4 mg Metoprolol Tartrate (Lopressor) 50 mg PO Q12 [facility] Last Admin: 07/22/18 08:46 Dose: 50 mg Nystatin (Nystop Topical Powder) 1 applic TOP TID [facility] Last Admin: 07/22/18 08:44 Dose: 1 applic Nystatin (Nystatin Oral Susp) 5 ml PO QID [facility] Last Admin: 07/22/18 08:44 Dose: 5 ml Ondansetron HCl (Zofran Inj) 4 mg IVP Q4 PRN PRN Reason: Nausea/Vomiting Last Admin: 07/05/18 21:16 Dose: 4 mg Phenylephrine HCl (Phenylephrine Opht 2.5% Soln) 1 drop OU PRN PRN PRN Reason: dilate pupils Last Admin: 07/12/18 07:09 Dose: 1 drop Raltegravir (Isentress) 400 mg PO BID [facility]; Protocol Stop: 08/05/23 17:00 Last Admin: 07/22/18 08:42 Dose: 400 mg Tenofovir Disoproxil Fumarate (Viread) 300 mg PO Q7D [facility]; Protocol Last Admin: 07/20/18 17:51 Dose: 300 mg Trimethoprim/Sulfamethoxazole (Bactrim Ds Tab) 1 tab PO [facility] [place] [place]; Protocol Stop: 09/04/18 09:00 Tropicamide (Mydriacyl 1% Opht Soln 15ml) 1 drop OU PRN PRN PRN Reason: dilate pupils Last Admin: 07/12/18 07:10 Dose: 1 drop Valganciclovir (Valcyte) 450 mg PO [facility] [place] [place] Last Admin: 07/20/18 09:10 Dose: 450 mg - Labs Labs: 07/22/18 05:45 07/21/18 05:45 PT 10.8 Seconds (9.8-13.1) 07/03/18 08:10 INR 1.0 07/03/18 08:10 APTT 25.9 Seconds (25.6-37.1) 07/03/18 08:10 - Constitutional Appears: Confused, Cachectic, Chronically Ill - Head Exam Head Exam: NORMOCEPHALIC - Eye Exam Eye Exam: absent: Scleral icterus - ENT Exam ENT Exam: Mucous Membranes Dry - Neck Exam Neck Exam: absent: Lymphadenopathy - Respiratory Exam Respiratory Exam: Decreased Breath Sounds - Cardiovascular Exam Cardiovascular Exam: REGULAR RHYTHM - Rectal Exam Rectal Exam: Deferred - Exam Exam: NORMAL INSPECTION - Extremities Exam Extremities Exam: absent: Pedal Edema - Back Exam Back Exam: absent: CVA tenderness (L), CVA tenderness (R) - Neurological Exam Neurological Exam: Alert, Awake, CN II-XII Intact - Psychiatric Exam Psychiatric exam: Depressed - Skin Skin Exam: Dry Assessment and Plan (1) Acute renal failure Status: Acute (2) Altered mental status Status: Acute (3) Diabetes mellitus Status: Acute (4) HIV (human immunodeficiency virus infection) Status: Acute (5) Pneumonia Status: Resolved (6) Encephalopathy Status: Acute (7) CMV (cytomegalovirus) infection Status: Acute - Assessment and Plan (Free Text) Assessment: renal function improving cytovene dose adjusted cont ARV's
--- NOTE | 2018-07-22 14:03 | CP.PCM.PN ---
Subjective - Date & Time of Evaluation Date of Evaluation: 07/22/18 Time of Evaluation: 14:03 - Subjective Subjective: Nephrology Consultation Note Assessment: Stable HUGO improving Sepsis Encephalopathy Respiratory failure Hyponatremia HIV/AIDS severe malnutritoon CMV viremia Hypokalemia Plan No acute need for renal replacement therapy at this time. Hypertension control with meds as ordered. Maintain hemodynamics stable. Avoid hypotension. Patient not on ACEI/ARB due to recent HUGO Monitor Input/Output, daily weights and renal function with basic metabolic panel pt on haart supplement lytes as needed can continue with IVF Dose meds/antibiotics for improved GFR. Avoid nephrotoxins/NSAIDs/ iodinated contrast (unless needed emergently) Glycemic control Further work up for as per primary team Thanks for allowing me to participate in care of your patient. Will follow patient with you. Please call if any Qs. Dr Keven Sewell Office: [phone] Subjective: Noted events overnight. Patients feels okay. not much communicative Physical Examination: General Appearance: Comfortable, in no acute respiratory distress, co-operative . ill appearing and cachexic Vitals reviewed and noted as below Head; Atraumatic, normocephalic ENT: s/p trach Neck; supple no lymphadenopathy, no thyromegaly or bruit Lungs: Normal respiratory rate/effort. Breath sounds bilateral equal and clear anteriorly Heart: Normal rate. s1s2 normal. No rub or gallop. Extremities: no edema. No varicose veins Neurological: Patient is alert, awake and lue weakness Skin: Warm and dry. Normal turgor. No rash. Palpitation: Normal elasticity for age Abdomen: Abdomen is soft. Bowel sounds +. There is no abdominal tenderness, no guarding/rigidity no organomegaly Psych: unable MSK: no joint tenderness or swelling. Digits and nails normal, no deformity : kidney or bladder not palpable Labs/imaging reviewed. Past medical history, past surgical history, family history, social history, allergy reviewed and noted as below Family hx: no hx of CKD. Rest non-contributory Objective - Vital Signs/Intake and Output Vital Signs (last 24 hours): Temp Pulse Resp BP Pulse Ox 97.6 F 75 19 135/91 H 100 07/22/18 08:05 07/22/18 08:46 07/22/18 08:05 07/22/18 08:46 07/22/18 08:05 Intake and Output: 07/22/18 07/22/18 06:59 18:59 Intake Total 840 Output Total 850 Balance -10 - Medications Medications: Current Medications Acetaminophen (Tylenol 650 Mg Supp) 650 mg [place] Q6 PRN PRN Reason: Fever >100.4 F Last Admin: 06/20/18 02:30 Dose: 650 mg Acetaminophen (Tylenol 325mg Tab) 650 mg PO Q4 PRN PRN Reason: Fever >100.4 F Last Admin: 07/16/18 16:44 Dose: 650 mg Acetylcysteine (Mucomyst 10% 4ml) 4 ml IH RQ6 [facility] Last Admin: 07/22/18 08:12 Dose: 4 ml Albuterol/Ipratropium (Duoneb 3 Mg/0.5 Mg (3 Ml) Ud) 3 ml INH RQ6 PRN PRN Reason: Shortness of Breath Last Admin: 07/22/18 08:12 Dose: 3 ml Amlodipine Besylate (Norvasc) 5 mg PO DAILY [facility] Last Admin: 07/22/18 08:43 Dose: 5 mg Dimethicone (Proshield Plus Skin Protectant) 1 applic TOP Q8 [facility] Last Admin: 07/22/18 08:44 Dose: 1 applic Enoxaparin Sodium (Lovenox) 30 mg SC DAILY [facility]; Protocol Last Admin: 06/17/18 09:20 Dose: 30 mg Haloperidol (Haldol) 2 mg PO TID PRN PRN Reason: Agitation Haloperidol Lactate (Haldol) 0.5 mg IVP Q6 PRN PRN Reason: Agitation Dextrose/Sodium Chloride (Dextrose 5%/0.45% Ns 1000 Ml) 1,000 mls @ 80 mls/hr IV .[id number] [facility] Stop: 07/23/18 00:52 Last Admin: 07/22/18 13:52 Dose: 80 mls/hr Insulin Human Lispro (Humalog) 0 units SC ACHS [facility]; Protocol Last Admin: 07/22/18 13:05 Dose: 1 units Lamivudine (Epivir) 150 mg PO DAILY [facility]; Protocol Stop: 10/05/18 12:45 Last Admin: 07/22/18 13:04 Dose: 150 mg Lorazepam (Ativan) 0.5 mg IVP Q6 PRN PRN Reason: Agitation Last Admin: 07/21/18 19:26 Dose: 0.5 mg Methylprednisolone (Medrol) 4 mg PO Q48H [facility] Last Admin: 07/22/18 13:22 Dose: Not Given Metoprolol Tartrate (Lopressor) 50 mg PO Q12 [facility] Last Admin: 07/22/18 08:46 Dose: 50 mg Nystatin (Nystop Topical Powder) 1 applic TOP TID [facility] Last Admin: 07/22/18 13:06 Dose: 1 applic Nystatin (Nystatin Oral Susp) 5 ml PO QID [facility] Last Admin: 07/22/18 13:07 Dose: 5 ml Ondansetron HCl (Zofran Inj) 4 mg IVP Q4 PRN PRN Reason: Nausea/Vomiting Last Admin: 07/05/18 21:16 Dose: 4 mg Phenylephrine HCl (Phenylephrine Opht 2.5% Soln) 1 drop OU PRN PRN PRN Reason: dilate pupils Last Admin: 07/12/18 07:09 Dose: 1 drop Raltegravir (Isentress) 400 mg PO BID [facility]; Protocol Stop: 08/05/23 17:00 Last Admin: 07/22/18 08:42 Dose: 400 mg Tenofovir Disoproxil Fumarate (Viread) 300 mg PO Q48H [facility]; Protocol Stop: 10/05/18 12:45 Last Admin: 07/22/18 13:06 Dose: 300 mg Trimethoprim/Sulfamethoxazole (Bactrim Ds Tab) 1 tab PO [facility] [place] Protocol Stop: 09/04/18 09:00 Tropicamide (Mydriacyl 1% Opht Soln 15ml) 1 drop OU PRN PRN PRN Reason: dilate pupils Last Admin: 07/12/18 07:10 Dose: 1 drop Valganciclovir (Valcyte) 450 mg PO F [facility] Last Admin: 07/20/18 09:10 Dose: 450 mg - Labs Labs: 07/22/18 05:45 07/21/18 05:45 PT 10.8 Seconds (9.8-13.1) 07/03/18 08:10 INR 1.0 07/03/18 08:10 APTT 25.9 Seconds (25.6-37.1) 07/03/18 08:10
--- NOTE | 2018-07-22 14:45 | CP.PCM.PN ---
Subjective - Date & Time of Evaluation Date of Evaluation: 07/22/18 Time of Evaluation: 13:30 - Subjective Subjective: awake, attempt to talk, feels depressed, poor apetite, Pt does not like diet Objective - Vital Signs/Intake and Output Vital Signs (last 24 hours): Temp Pulse Resp BP Pulse Ox 97.6 F 75 19 135/91 H 100 07/22/18 08:05 07/22/18 08:46 07/22/18 08:05 07/22/18 08:46 07/22/18 08:05 Intake and Output: 07/22/18 07/22/18 06:59 18:59 Intake Total 840 Output Total 850 Balance -10 - Medications Medications: Current Medications Acetaminophen (Tylenol 650 Mg Supp) [address] Q6 PRN PRN Reason: Fever >100.4 F Last Admin: 06/20/18 02:30 Dose: 650 mg Acetaminophen (Tylenol 325mg Tab) 650 mg PO Q4 PRN PRN Reason: Fever >100.4 F Last Admin: 07/16/18 16:44 Dose: 650 mg Acetylcysteine (Mucomyst 10% 4ml) 4 ml IH RQ6 [facility] Last Admin: 07/22/18 14:00 Dose: Not Given Albuterol/Ipratropium (Duoneb 3 Mg/0.5 Mg (3 Ml) Ud) 3 ml INH RQ6 PRN PRN Reason: Shortness of Breath Last Admin: 07/22/18 08:12 Dose: 3 ml Amlodipine Besylate (Norvasc) 5 mg PO DAILY [facility] Last Admin: 07/22/18 08:43 Dose: 5 mg Dimethicone (Proshield Plus Skin Protectant) 1 applic TOP Q8 [facility] Last Admin: 07/22/18 08:44 Dose: 1 applic Enoxaparin Sodium (Lovenox) 30 mg SC DAILY [facility]; Protocol Last Admin: 06/17/18 09:20 Dose: 30 mg Haloperidol (Haldol) 2 mg PO TID PRN PRN Reason: Agitation Haloperidol Lactate (Haldol) 0.5 mg IVP Q6 PRN PRN Reason: Agitation Dextrose/Sodium Chloride (Dextrose 5%/0.45% Ns 1000 Ml) 1,000 mls @ 80 mls/hr IV .[id number] [facility] Stop: 07/23/18 00:52 Last Admin: 07/22/18 13:52 Dose: 80 mls/hr Insulin Human Lispro (Humalog) 0 units SC ACHS [facility]; Protocol Last Admin: 07/22/18 13:05 Dose: 1 units Lamivudine (Epivir) 150 mg PO DAILY [facility]; Protocol Stop: 10/05/18 12:45 Last Admin: 07/22/18 13:04 Dose: 150 mg Lorazepam (Ativan) 0.5 mg IVP Q6 PRN PRN Reason: Agitation Last Admin: 07/21/18 19:26 Dose: 0.5 mg Methylprednisolone (Medrol) 4 mg PO Q48H [facility] Last Admin: 07/22/18 13:22 Dose: Not Given Metoprolol Tartrate (Lopressor) 50 mg PO Q12 [facility] Last Admin: 07/22/18 08:46 Dose: 50 mg Nystatin (Nystop Topical Powder) 1 applic TOP TID [facility] Last Admin: 07/22/18 13:06 Dose: 1 applic Nystatin (Nystatin Oral Susp) 5 ml PO QID [facility] Last Admin: 07/22/18 13:07 Dose: 5 ml Ondansetron HCl (Zofran Inj) 4 mg IVP Q4 PRN PRN Reason: Nausea/Vomiting Last Admin: 07/05/18 21:16 Dose: 4 mg Phenylephrine HCl (Phenylephrine Opht 2.5% Soln) 1 drop OU PRN PRN PRN Reason: dilate pupils Last Admin: 07/12/18 07:09 Dose: 1 drop Raltegravir (Isentress) 400 mg PO BID [facility]; Protocol Stop: 08/05/23 17:00 Last Admin: 07/22/18 08:42 Dose: 400 mg Tenofovir Disoproxil Fumarate (Viread) 300 mg PO Q48H [facility]; Protocol Stop: 10/05/18 12:45 Last Admin: 07/22/18 13:06 Dose: 300 mg Trimethoprim/Sulfamethoxazole (Bactrim Ds Tab) 1 tab PO [facility] [place]; Protocol Stop: 09/04/18 09:00 Tropicamide (Mydriacyl 1% Opht Soln 15ml) 1 drop OU PRN PRN PRN Reason: dilate pupils Last Admin: 07/12/18 07:10 Dose: 1 drop Valganciclovir (Valcyte) 450 mg PO MWF [facility] Last Admin: 07/20/18 09:10 Dose: 450 mg - Labs Labs: 07/22/18 05:45 07/21/18 05:45 PT 10.8 Seconds (9.8-13.1) 07/03/18 08:10 INR 1.0 07/03/18 08:10 APTT 25.9 Seconds (25.6-37.1) 07/03/18 08:10 - Constitutional Appears: Chronically Ill - Eye Exam Eye Exam: PERRL - ENT Exam ENT Exam: Normal Exam - Neck Exam Additional comments: Tracheostomy - Respiratory Exam Respiratory Exam: Decreased Breath Sounds (at bases) - Cardiovascular Exam Cardiovascular Exam: REGULAR RHYTHM - GI/Abdominal Exam GI & Abdominal Exam: Soft, Normal Bowel Sounds - Neurological Exam Additional comments: alert, attempt to talk, no focal motor deficit - Psychiatric Exam Psychiatric exam: Anxious - Skin Skin Exam: Warm Assessment and Plan (1) Respiratory failure Status: Resolved (2) Tracheostomy status Status: Acute (3) Altered mental status Status: Acute (4) HIV (human immunodeficiency virus infection) Status: Acute (5) Fever Status: Resolved (6) Pneumonia Status: Resolved (7) Severe sepsis Status: Resolved (8) Acute renal failure Status: Acute (9) Diabetes mellitus Status: Acute (10) Anemia Status: Chronic (11) Leukopenia Status: Acute - Assessment and Plan (Free Text) Plan: leukopenia 1,2, on Neupogen,Hematology consult appreciated, continue Abx, HAART, and rest of Tx
[2018-07-23] MEDS: Acetylcysteine 10% 4 ML IH SCH ×2 (01:02→19:03)
[2018-07-23] MEDS: Proshield Plus GEL TOP SCH ×3 (01:07→18:25)
[2018-07-23] MEDS: Insulin Lispro (humaLOG) 100 Units/ml Inj SC SCH ×4 (07:56→21:33)
[2018-07-23] MEDS: Nystatin 100,000 Units/ml Oral Susp 5 ml UD PO SCH ×4 (09:06→21:21)
[2018-07-23] MEDS: Tmp-Smz 800 mg-160 mg DS Tab PO SCH (09:07)
[2018-07-23] MEDS: Dextrose 5%/0.45% NS 1,000 ML IV SCH (11:00)
--- NOTE | 2018-07-23 11:01 | CP.PCM.PN ---
Subjective - Date & Time of Evaluation Date of Evaluation: 07/23/18 Time of Evaluation: 11:00 - Subjective Subjective: Patient in bed he appears to be somewhat drowsy today Objective - Vital Signs/Intake and Output Vital Signs (last 24 hours): Temp Pulse Resp BP Pulse Ox 97.6 F 63 20 133/80 100 07/23/18 09:44 07/23/18 09:44 07/23/18 09:44 07/23/18 09:44 07/23/18 09:44 Intake and Output: 07/23/18 07/23/18 06:59 18:59 Intake Total 500 Output Total 700 Balance -200 - Medications Medications: Current Medications Acetaminophen (Tylenol 650 Mg Supp) 650 mg [place] Q6 PRN PRN Reason: Fever >100.4 F Last Admin: 06/20/18 02:30 Dose: 650 mg Acetaminophen (Tylenol 325mg Tab) 650 mg PO Q4 PRN PRN Reason: Fever >100.4 F Last Admin: 07/16/18 16:44 Dose: 650 mg Acetylcysteine (Mucomyst 10% 4ml) 4 ml IH RQ6 [facility] Last Admin: 07/23/18 01:02 Dose: Not Given Albuterol/Ipratropium (Duoneb 3 Mg/0.5 Mg (3 Ml) Ud) 3 ml INH RQ6 PRN PRN Reason: Shortness of Breath Last Admin: 07/22/18 08:12 Dose: 3 ml Dimethicone (Proshield Plus Skin Protectant) 1 applic TOP Q8 [facility] Last Admin: 07/23/18 09:09 Dose: 1 applic Enoxaparin Sodium (Lovenox) 30 mg SC DAILY [facility]; Protocol Last Admin: 06/17/18 09:20 Dose: 30 mg Haloperidol (Haldol) 2 mg PO TID PRN PRN Reason: Agitation Haloperidol Lactate (Haldol) 0.5 mg IM Q6 PRN PRN Reason: Agitation Dextrose/Sodium Chloride (Dextrose 5%/0.45% Ns 1000 Ml) 1,000 mls @ 60 mls/hr IV .[id number] [facility] Stop: 07/24/18 10:50 Insulin Human Lispro (Humalog) 0 units SC ACHS [facility]; Protocol Last Admin: 07/23/18 07:56 Dose: Not Given Lamivudine (Epivir) 150 mg PO DAILY [facility]; Protocol Stop: 05/31/19 12:45 Last Admin: 07/23/18 09:07 Dose: 150 mg Lorazepam (Ativan) 0.5 mg IM Q6 PRN PRN Reason: Agitation Methylprednisolone (Medrol) 4 mg PO Q48H [facility] Last Admin: 07/22/18 13:22 Dose: Not Given Metoprolol Tartrate (Lopressor) 50 mg PO Q12 [facility] Last Admin: 07/23/18 09:15 Dose: 50 mg Nystatin (Nystop Topical Powder) 1 applic TOP TID [facility] Last Admin: 07/23/18 09:08 Dose: 1 applic Nystatin (Nystatin Oral Susp) 5 ml PO QID [facility] Last Admin: 07/23/18 09:06 Dose: 5 ml Ondansetron HCl (Zofran Inj) 4 mg IVP Q4 PRN PRN Reason: Nausea/Vomiting Last Admin: 07/05/18 21:16 Dose: 4 mg Phenylephrine HCl (Phenylephrine Opht 2.5% Soln) 1 drop OU PRN PRN PRN Reason: dilate pupils Last Admin: 07/12/18 07:09 Dose: 1 drop Raltegravir (Isentress) 400 mg PO BID [facility]; Protocol Stop: 08/05/23 17:00 Last Admin: 07/23/18 09:06 Dose: 400 mg Tenofovir Disoproxil Fumarate (Viread) 300 mg PO Q48H [facility]; Protocol Stop: 10/05/18 12:45 Last Admin: 07/22/18 13:06 Dose: 300 mg Trimethoprim/Sulfamethoxazole (Bactrim Ds Tab) 1 tab PO [facility] [place]; Protocol Stop: 09/04/18 09:00 Last Admin: 07/23/18 09:07 Dose: 1 tab Tropicamide (Mydriacyl 1% Opht Soln 15ml) 1 drop OU PRN PRN PRN Reason: dilate pupils Last Admin: 07/12/18 07:10 Dose: 1 drop Valganciclovir (Valcyte) 450 mg PO [facility] [place] Last Admin: 07/23/18 09:06 Dose: 450 mg - Labs Labs: 07/22/18 05:45 07/21/18 05:45 PT 10.8 Seconds (9.8-13.1) 07/03/18 08:10 INR 1.0 07/03/18 08:10 APTT 25.9 Seconds (25.6-37.1) 07/03/18 08:10 - Constitutional Appears: No Acute Distress - Eye Exam Eye Exam: Conjunctival injection - Respiratory Exam Respiratory Exam: NORMAL BREATHING PATTERN. absent: Rhonchi - GI/Abdominal Exam GI & Abdominal Exam: Soft, Normal Bowel Sounds - Extremities Exam Extremities Exam: absent: Calf Tenderness - Back Exam Back Exam: absent: CVA tenderness (L), CVA tenderness (R) - Neurological Exam Neurological Exam: Altered - Skin Skin Exam: absent: Cyanosis Assessment and Plan (1) Acute renal failure Assessment & Plan: Assessment & Plan: HUGO patient developing acute kidney injury again and recovering again creat trending down Sepsis recovering Encephalopathy much better, more awake S/P Respiratory failure extubated Status post tracheostomy Hyponatremia corrected HIV/AIDS malnutritoon Leukopenia Plan Continue gentle hydration Kidney function improving serum creatinine trending down Rest of the management as per primary team Status: Acute (2) HIV (human immunodeficiency virus infection) Status: Acute
--- NOTE | 2018-07-23 11:03 | CP.PCM.PN ---
Subjective - Date & Time of Evaluation Date of Evaluation: 07/23/18 Time of Evaluation: 07:00 - Subjective Subjective: no fever still neutropenic Dr Langston onm board meds adjusted Objective - Vital Signs/Intake and Output Vital Signs (last 24 hours): Temp Pulse Resp BP Pulse Ox 97.6 F 63 20 133/80 100 07/23/18 09:44 07/23/18 09:44 07/23/18 09:44 07/23/18 09:44 07/23/18 09:44 Intake and Output: 07/23/18 07/23/18 06:59 18:59 Intake Total 500 Output Total 700 Balance -200 - Medications Medications: Current Medications Acetaminophen (Tylenol 650 Mg Supp) 650 mg OR Q6 PRN PRN Reason: Fever >100.4 F Last Admin: 06/20/18 02:30 Dose: 650 mg Acetaminophen (Tylenol 325mg Tab) 650 mg PO Q4 PRN PRN Reason: Fever >100.4 F Last Admin: 07/16/18 16:44 Dose: 650 mg Acetylcysteine (Mucomyst 10% 4ml) 4 ml IH RQ6 [facility] Last Admin: 07/23/18 01:02 Dose: Not Given Albuterol/Ipratropium (Duoneb 3 Mg/0.5 Mg (3 Ml) Ud) 3 ml INH RQ6 PRN PRN Reason: Shortness of Breath Last Admin: 07/22/18 08:12 Dose: 3 ml Dimethicone (Proshield Plus Skin Protectant) 1 applic TOP Q8 [facility] Last Admin: 07/23/18 09:09 Dose: 1 applic Enoxaparin Sodium (Lovenox) 30 mg SC DAILY [facility]; Protocol Last Admin: 06/17/18 09:20 Dose: 30 mg Haloperidol (Haldol) 2 mg PO TID PRN PRN Reason: Agitation Haloperidol Lactate (Haldol) 0.5 mg IM Q6 PRN PRN Reason: Agitation Dextrose/Sodium Chloride (Dextrose 5%/0.45% Ns 1000 Ml) 1,000 mls @ 60 mls/hr IV .[id number] [facility] Stop: 07/24/18 10:50 Insulin Human Lispro (Humalog) 0 units SC ACHS [facility]; Protocol Last Admin: 07/23/18 07:56 Dose: Not Given Lamivudine (Epivir) 150 mg PO DAILY [facility]; Protocol Stop: 10/05/18 12:45 Last Admin: 07/23/18 09:07 Dose: 150 mg Lorazepam (Ativan) 0.5 mg IM Q6 PRN PRN Reason: Agitation Methylprednisolone (Medrol) 4 mg PO Q48H [facility] Last Admin: 07/22/18 13:22 Dose: Not Given Metoprolol Tartrate (Lopressor) 50 mg PO Q12 [facility] Last Admin: 07/23/18 09:15 Dose: 50 mg Nystatin (Nystop Topical Powder) 1 applic TOP TID [facility] Last Admin: 07/23/18 09:08 Dose: 1 applic Nystatin (Nystatin Oral Susp) 5 ml PO QID [facility] Last Admin: 07/23/18 09:06 Dose: 5 ml Ondansetron HCl (Zofran Inj) 4 mg IVP Q4 PRN PRN Reason: Nausea/Vomiting Last Admin: 07/05/18 21:16 Dose: 4 mg Phenylephrine HCl (Phenylephrine Opht 2.5% Soln) 1 drop OU PRN PRN PRN Reason: dilate pupils Last Admin: 07/12/18 07:09 Dose: 1 drop Raltegravir (Isentress) 400 mg PO BID [facility]; Protocol Stop: 08/05/23 17:00 Last Admin: 07/23/18 09:06 Dose: 400 mg Tenofovir Disoproxil Fumarate (Viread) 300 mg PO Q48H [facility]; Protocol Stop: 10/05/18 12:45 Last Admin: 07/22/18 13:06 Dose: 300 mg Trimethoprim/Sulfamethoxazole (Bactrim Ds Tab) 1 tab PO [facility] [place]; Protocol Stop: 09/04/18 09:00 Last Admin: 07/23/18 09:07 Dose: 1 tab Tropicamide (Mydriacyl 1% Opht Soln 15ml) 1 drop OU PRN PRN PRN Reason: dilate pupils Last Admin: 07/12/18 07:10 Dose: 1 drop Valganciclovir (Valcyte) 450 mg PO [facility] [place] Last Admin: 07/23/18 09:06 Dose: 450 mg - Labs Labs: 07/22/18 05:45 07/21/18 05:45 PT 10.8 Seconds (9.8-13.1) 07/03/18 08:10 INR 1.0 07/03/18 08:10 APTT 25.9 Seconds (25.6-37.1) 07/03/18 08:10 - Constitutional Appears: Non-toxic, Confused, Cachectic, Chronically Ill - Head Exam Head Exam: ATRAUMATIC, NORMAL INSPECTION, NORMOCEPHALIC - Eye Exam Eye Exam: EOMI, Normal appearance, PERRL Pupil Exam: NORMAL ACCOMODATION, PERRL - ENT Exam ENT Exam: Mucous Membranes Moist, Normal Exam - Neck Exam Neck Exam: Full ROM, Normal Inspection. absent: Lymphadenopathy - Respiratory Exam Respiratory Exam: Clear to Ausculation Bilateral, NORMAL BREATHING PATTERN - Cardiovascular Exam Cardiovascular Exam: REGULAR RHYTHM, +S1, +S2. absent: Murmur - GI/Abdominal Exam GI & Abdominal Exam: Soft, Normal Bowel Sounds. absent: Tenderness - Rectal Exam Rectal Exam: Deferred - Exam Exam: NORMAL INSPECTION - Extremities Exam Extremities Exam: Full ROM, Normal Capillary Refill, Normal Inspection. absent: Joint Swelling, Pedal Edema - Back Exam Back Exam: NORMAL INSPECTION - Neurological Exam Neurological Exam: Alert, Awake, CN II-XII Intact, Normal Gait, Oriented x3 - Psychiatric Exam Psychiatric exam: Normal Affect, Normal Mood - Skin Skin Exam: Dry, Intact, Normal Color, Warm Assessment and Plan (1) Acute renal failure Status: Acute (2) Altered mental status Status: Acute (3) Diabetes mellitus Status: Acute (4) HIV (human immunodeficiency virus infection) Status: Acute (5) Pneumonia Status: Resolved (6) Encephalopathy Status: Acute (7) CMV (cytomegalovirus) infection Status: Acute - Assessment and Plan (Free Text) 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
--- NOTE | 2018-07-23 14:04 | CP.PCM.PN ---
Subjective - Date & Time of Evaluation Date of Evaluation: 07/23/18 Time of Evaluation: 13:40 - Subjective Subjective: F/U S/P Respiratory failure and Tracheostomy. Awake, smiling, N/C. Objective - Vital Signs/Intake and Output Vital Signs (last 24 hours): Temp Pulse Resp BP Pulse Ox 97.6 F 63 20 133/80 100 07/23/18 09:44 07/23/18 09:44 07/23/18 09:44 07/23/18 09:44 07/23/18 09:44 Intake and Output: 07/23/18 07/23/18 06:59 18:59 Intake Total 500 Output Total 700 Balance -200 - Medications Medications: Current Medications Acetaminophen (Tylenol 650 Mg Supp) 650 mg [place] Q6 PRN PRN Reason: Fever >100.4 F Last Admin: 06/20/18 02:30 Dose: 650 mg Acetaminophen (Tylenol 325mg Tab) 650 mg PO Q4 PRN PRN Reason: Fever >100.4 F Last Admin: 07/16/18 16:44 Dose: 650 mg Acetylcysteine (Mucomyst 10% 4ml) 4 ml IH RQ6 [facility] Last Admin: 07/23/18 01:02 Dose: Not Given Albuterol/Ipratropium (Duoneb 3 Mg/0.5 Mg (3 Ml) Ud) 3 ml INH RQ6 PRN PRN Reason: Shortness of Breath Last Admin: 07/22/18 08:12 Dose: 3 ml Dimethicone (Proshield Plus Skin Protectant) 1 applic TOP Q8 [facility] Last Admin: 07/23/18 09:09 Dose: 1 applic Enoxaparin Sodium (Lovenox) 30 mg SC DAILY [facility]; Protocol Last Admin: 06/17/18 09:20 Dose: 30 mg Haloperidol (Haldol) 2 mg PO TID PRN PRN Reason: Agitation Haloperidol Lactate (Haldol) 0.5 mg IM Q6 PRN PRN Reason: Agitation Dextrose/Sodium Chloride (Dextrose 5%/0.45% Ns 1000 Ml) 1,000 mls @ 60 mls/hr IV .[id number] [facility] Stop: 07/24/18 10:50 Insulin Human Lispro (Humalog) 0 units SC ACHS [facility]; Protocol Last Admin: 07/23/18 12:01 Dose: 1 units Lamivudine (Epivir) 150 mg PO DAILY [facility]; Protocol Stop: 10/05/18 12:45 Last Admin: 07/23/18 09:07 Dose: 150 mg Lorazepam (Ativan) 0.5 mg IM Q6 PRN PRN Reason: Agitation Last Admin: 07/23/18 11:28 Dose: 0.5 mg Methylprednisolone (Medrol) 4 mg PO Q48H [facility] Last Admin: 07/22/18 13:22 Dose: Not Given Metoprolol Tartrate (Lopressor) 50 mg PO Q12 [facility] Last Admin: 07/23/18 09:15 Dose: 50 mg Nystatin (Nystop Topical Powder) 1 applic TOP TID [facility] Last Admin: 07/23/18 13:48 Dose: 1 applic Nystatin (Nystatin Oral Susp) 5 ml PO QID [facility] Last Admin: 07/23/18 13:37 Dose: 5 ml Ondansetron HCl (Zofran Inj) 4 mg IVP Q4 PRN PRN Reason: Nausea/Vomiting Last Admin: 07/05/18 21:16 Dose: 4 mg Phenylephrine HCl (Phenylephrine Opht 2.5% Soln) 1 drop OU PRN PRN PRN Reason: dilate pupils Last Admin: 07/12/18 07:09 Dose: 1 drop Raltegravir (Isentress) 400 mg PO BID [facility]; Protocol Stop: 08/05/23 17:00 Last Admin: 07/23/18 09:06 Dose: 400 mg Tenofovir Disoproxil Fumarate (Viread) 300 mg PO Q48H [facility]; Protocol Stop: 10/05/18 12:45 Last Admin: 07/22/18 13:06 Dose: 300 mg Trimethoprim/Sulfamethoxazole (Bactrim Ds Tab) 1 tab PO [facility]; Protocol Stop: 09/04/18 09:00 Last Admin: 07/23/18 09:07 Dose: 1 tab Tropicamide (Mydriacyl 1% Opht Soln 15ml) 1 drop OU PRN PRN PRN Reason: dilate pupils Last Admin: 07/12/18 07:10 Dose: 1 drop Valganciclovir (Valcyte) 450 mg PO [facility] Last Admin: 07/23/18 09:06 Dose: 450 mg - Labs Labs: 07/22/18 05:45 07/21/18 05:45 PT 10.8 Seconds (9.8-13.1) 07/03/18 08:10 INR 1.0 07/03/18 08:10 APTT 25.9 Seconds (25.6-37.1) 07/03/18 08:10 - Constitutional Appears: Chronically Ill - Head Exam Head Exam: NORMAL INSPECTION - Eye Exam Eye Exam: PERRL - ENT Exam ENT Exam: Normal Exam - Neck Exam Additional comments: Tracheostomy, Trach collar - Respiratory Exam Respiratory Exam: Decreased Breath Sounds (at bases) - Cardiovascular Exam Cardiovascular Exam: REGULAR RHYTHM - GI/Abdominal Exam GI & Abdominal Exam: Soft, Normal Bowel Sounds - Exam Additional comments: Catheter - Extremities Exam Additional comments: JANKI PICC line - Neurological Exam Neurological Exam: Alert Additional comments: Attempt to talk, no focal motor deficit. - Psychiatric Exam Psychiatric exam: Anxious - Skin Skin Exam: Warm Assessment and Plan (1) Respiratory failure Status: Resolved (2) Tracheostomy status Status: Acute (3) Altered mental status Status: Acute (4) HIV (human immunodeficiency virus infection) Status: Acute (5) Fever Status: Resolved (6) Pneumonia Status: Resolved (7) Severe sepsis Status: Resolved (8) Acute renal failure Status: Acute (9) Diabetes mellitus Status: Acute (10) Anemia Status: Chronic (11) Leukopenia Status: Acute - Assessment and Plan (Free Text) Plan: Pt pulled out the PICC line and the IV, on tracheostomy but no using O2, acute renal failure resolving, Pt with severe Neutropenia couldn't do blood work today 2nd to blood line pulled out, plan is transfer him to LTAC to take care of the tracheostomy, f/u Swallow eval, attempt to increase diet
[2018-07-23 16:38] LABS: HEMOGLOBIN 10.8 g/dL (12.0-18.0); MEAN CELL VOLUME 89.4 fl (80.0-94.0); MEAN CORPUSCULAR HEMOGLOBIN 29.3 pg (27.0-31.0); MEAN CORPUSCULAR HGB CONC 32.8 g/dL (33.0-37.0); RBC 3.7 Mil/uL (4.40-5.90); WHITE BLOOD COUNT 4.2 K/uL (4.8-10.8)
[2018-07-23 16:50] LABS: INR 1.1; PROTHROMBIN TIME 12.1 Seconds (9.8-13.1)
[2018-07-23 16:53] LABS: PARTIAL THROMBOPLASTIN TIME 28.6 Seconds (25.6-37.1)
[2018-07-23 16:59] LABS: ALBUMIN 3.1 g/dL (3.5-5.0); CALCIUM 9.2 mg/dL (8.4-10.2)
[2018-07-23 17:48] LABS: FOLATE 6.4 ng/mL
[2018-07-23] MEDS ORDERED: Potassium Chloride 20 mEq/15 ml LIQ UD PO ONE (18:00)
[2018-07-23] MEDS: Albuterol-Ipratrop 3 mg / 0.5 (3 ml) UD INH PRN (19:03)
[2018-07-24] MEDS: Proshield Plus GEL TOP SCH ×3 (01:11→17:11)
[2018-07-24] MEDS: Acetylcysteine 10% 4 ML IH SCH ×4 (02:39→20:57)
[2018-07-24] MEDS: Dextrose 5%/0.45% NS 1,000 ML IV SCH (03:45)
[2018-07-24] MEDS: Insulin Lispro (humaLOG) 100 Units/ml Inj SC SCH ×4 (09:06→21:16)
--- NOTE | 2018-07-24 09:44 | CP.PCM.PN ---
Subjective - Date & Time of Evaluation Date of Evaluation: 07/24/18 Time of Evaluation: 09:42 - Subjective Subjective: Nephrology Consultation Note Assessment: Stable HUGO improving Sepsis Encephalopathy Respiratory failure Hyponatremia HIV/AIDS severe malnutritoon CMV viremia Hypokalemia Plan no labs available today, renal function had been stable will monitor when available bp reasoanbly controlled Monitor Input/Output, daily weights and renal function with basic metabolic panel pt on haart supplement lytes as needed Subjective: Noted events overnight. pt did not want to talk today Physical Examination: General Appearance: Comfortable, in no acute respiratory distress, co-operative . ill appearing and cachexic Vitals reviewed and noted as below Head; Atraumatic, normocephalic ENT: s/p trach Neck; supple no lymphadenopathy, no thyromegaly or bruit Lungs: Normal respiratory rate/effort. Breath sounds bilateral equal and clear anteriorly Heart: Normal rate. s1s2 normal. No rub or gallop. Extremities: no edema. No varicose veins Neurological: Patient is alert, awake and lue weakness Skin: Warm and dry. Normal turgor. No rash. Palpitation: Normal elasticity for age Abdomen: Abdomen is soft. Bowel sounds +. There is no abdominal tenderness, no guarding/rigidity no organomegaly Psych: unable MSK: no joint tenderness or swelling. Digits and nails normal, no deformity : kidney or bladder not palpable Labs/imaging reviewed. Past medical history, past surgical history, family history, social history, allergy reviewed and noted as below Family hx: no hx of CKD. Rest non-contributory Objective - Vital Signs/Intake and Output Vital Signs (last 24 hours): Temp Pulse Resp BP Pulse Ox 97.9 F 79 18 130/81 99 07/24/18 08:16 07/24/18 08:16 07/24/18 08:16 07/24/18 08:16 07/24/18 08:16 - Medications Medications: Current Medications Acetaminophen (Tylenol 650 Mg Supp) 650 mg [place] Q6 PRN PRN Reason: Fever >100.4 F Last Admin: 06/20/18 02:30 Dose: 650 mg Acetaminophen (Tylenol 325mg Tab) 650 mg PO Q4 PRN PRN Reason: Fever >100.4 F Last Admin: 07/16/18 16:44 Dose: 650 mg Acetylcysteine (Mucomyst 10% 4ml) 4 ml IH RQ6 [facility] Last Admin: 07/24/18 09:02 Dose: Not Given Albuterol/Ipratropium (Duoneb 3 Mg/0.5 Mg (3 Ml) Ud) 3 ml INH RQ6 PRN PRN Reason: Shortness of Breath Last Admin: 07/23/18 19:03 Dose: 3 ml Dimethicone (Proshield Plus Skin Protectant) 1 applic TOP Q8 [facility] Last Admin: 07/24/18 01:11 Dose: 1 applic Enoxaparin Sodium (Lovenox) 30 mg SC DAILY [facility]; Protocol Last Admin: 06/17/18 09:20 Dose: 30 mg Haloperidol (Haldol) 2 mg PO TID PRN PRN Reason: Agitation Haloperidol Lactate (Haldol) 0.5 mg IM Q6 PRN PRN Reason: Agitation Last Admin: 07/23/18 22:55 Dose: 0.5 mg Dextrose/Sodium Chloride (Dextrose 5%/0.45% Ns 1000 Ml) 1,000 mls @ 60 mls/hr IV .[id number] [facility] Stop: 07/24/18 10:50 Last Admin: 07/24/18 03:45 Dose: Not Given Insulin Human Lispro (Humalog) 0 units SC ACHS [facility]; Protocol Last Admin: 07/24/18 09:06 Dose: 2 units Lamivudine (Epivir) 150 mg PO DAILY [facility]; Protocol Stop: 10/05/18 12:45 Last Admin: 07/23/18 09:07 Dose: 150 mg Lorazepam (Ativan) 0.5 mg IM Q6 PRN PRN Reason: Agitation Last Admin: 07/24/18 07:28 Dose: 0.5 mg Methylprednisolone (Medrol) 4 mg PO Q48H [facility] Last Admin: 07/22/18 13:22 Dose: Not Given Metoprolol Tartrate (Lopressor) 50 mg PO Q12 [facility] Last Admin: 07/23/18 20:52 Dose: 50 mg Nystatin (Nystop Topical Powder) 1 applic TOP TID [facility] Last Admin: 07/23/18 18:25 Dose: 1 applic Nystatin (Nystatin Oral Susp) 5 ml PO QID [facility] Last Admin: 07/23/18 21:21 Dose: 5 ml Ondansetron HCl (Zofran Inj) 4 mg IVP Q4 PRN PRN Reason: Nausea/Vomiting Last Admin: 07/05/18 21:16 Dose: 4 mg Phenylephrine HCl (Phenylephrine Opht 2.5% Soln) 1 drop OU PRN PRN PRN Reason: dilate pupils Last Admin: 07/12/18 07:09 Dose: 1 drop Potassium Chloride (Potassium Chloride Oral Soln) 10 meq PO DAILY [facility] Raltegravir (Isentress) 400 mg PO BID [facility]; Protocol Stop: 08/05/23 17:00 Last Admin: 07/23/18 18:27 Dose: 400 mg Tenofovir Disoproxil Fumarate (Viread) 300 mg PO Q48H [facility]; Protocol Stop: 10/05/18 12:45 Last Admin: 07/22/18 13:06 Dose: 300 mg Trimethoprim/Sulfamethoxazole (Bactrim Ds Tab) 1 tab PO [facility] [place]; Protocol Stop: 09/04/18 09:00 Last Admin: 07/23/18 09:07 Dose: 1 tab Tropicamide (Mydriacyl 1% Opht Soln 15ml) 1 drop OU PRN PRN PRN Reason: dilate pupils Last Admin: 07/12/18 07:10 Dose: 1 drop Valganciclovir (Valcyte) 450 mg PO [facility] [place] Last Admin: 07/23/18 09:06 Dose: 450 mg - Labs Labs: 07/23/18 15:20 07/23/18 15:20 PT 12.1 Seconds (9.8-13.1) 07/23/18 15:20 INR 1.1 07/23/18 15:20 APTT 28.6 Seconds (25.6-37.1) 07/23/18 15:20
--- NOTE | 2018-07-24 10:25 | CP.PCM.PN ---
Subjective - Date & Time of Evaluation Date of Evaluation: 07/24/18 Time of Evaluation: 09:00 - Subjective Subjective: events noted IV rx in progress Objective - Vital Signs/Intake and Output Vital Signs (last 24 hours): Temp Pulse Resp BP Pulse Ox 97.9 F 79 18 130/81 99 07/24/18 08:16 07/24/18 08:16 07/24/18 08:16 07/24/18 08:16 07/24/18 08:16 - Medications Medications: Current Medications Acetaminophen (Tylenol 650 Mg Supp) 650 mg OR Q6 PRN PRN Reason: Fever >100.4 F Last Admin: 06/20/18 02:30 Dose: 650 mg Acetaminophen (Tylenol 325mg Tab) 650 mg PO Q4 PRN PRN Reason: Fever >100.4 F Last Admin: 07/16/18 16:44 Dose: 650 mg Acetylcysteine (Mucomyst 10% 4ml) 4 ml IH RQ6 [facility] Last Admin: 07/24/18 09:02 Dose: Not Given Albuterol/Ipratropium (Duoneb 3 Mg/0.5 Mg (3 Ml) Ud) 3 ml INH RQ6 PRN PRN Reason: Shortness of Breath Last Admin: 07/23/18 19:03 Dose: 3 ml Dimethicone (Proshield Plus Skin Protectant) 1 applic TOP Q8 [facility] Last Admin: 07/24/18 01:11 Dose: 1 applic Enoxaparin Sodium (Lovenox) 30 mg SC DAILY [facility]S [facility]; Protocol Last Admin: 06/17/18 09:20 Dose: 30 mg Haloperidol (Haldol) 2 mg PO TID PRN PRN Reason: Agitation Haloperidol Lactate (Haldol) 0.5 mg IM Q6 PRN PRN Reason: Agitation Last Admin: 07/23/18 22:55 Dose: 0.5 mg Dextrose/Sodium Chloride (Dextrose 5%/0.45% Ns 1000 Ml) 1,000 mls @ 60 mls/hr IV .[id number] [facility] 234 [facility]S [facility] Stop: 07/24/18 10:50 Last Admin: 07/24/18 03:45 Dose: Not Given Insulin Human Lispro (Humalog) 0 units SC ACHS [facility]; Protocol Last Admin: 07/24/18 09:06 Dose: 2 units Lamivudine (Epivir) 150 mg PO DAILY [facility]; Protocol Stop: 10/05/18 12:45 Last Admin: 07/23/18 09:07 Dose: 150 mg Lorazepam (Ativan) 0.5 mg IM Q6 PRN PRN Reason: Agitation Last Admin: 07/24/18 07:28 Dose: 0.5 mg Methylprednisolone (Medrol) 4 mg PO Q48H [facility] 234 [facility]S [facility] Last Admin: 07/22/18 13:22 Dose: Not Given Metoprolol Tartrate (Lopressor) 50 mg PO Q12 [facility] Last Admin: 07/23/18 20:52 Dose: 50 mg Nystatin (Nystop Topical Powder) 1 applic TOP TID [facility] 234 [facility]S [facility] Last Admin: 07/23/18 18:25 Dose: 1 applic Nystatin (Nystatin Oral Susp) 5 ml PO QID [facility] 234 [facility] Last Admin: 07/23/18 21:21 Dose: 5 ml Ondansetron HCl (Zofran Inj) 4 mg IVP Q4 PRN PRN Reason: Nausea/Vomiting Last Admin: 07/05/18 21:16 Dose: 4 mg Phenylephrine HCl (Phenylephrine Opht 2.5% Soln) 1 drop OU PRN PRN PRN Reason: dilate pupils Last Admin: 07/12/18 07:09 Dose: 1 drop Potassium Chloride (Potassium Chloride Oral Soln) 10 meq PO DAILY [facility] 234 [facility]S [facility] Raltegravir (Isentress) 400 mg PO BID [facility]; Protocol Stop: 08/05/23 17:00 Last Admin: 07/23/18 18:27 Dose: 400 mg Tenofovir Disoproxil Fumarate (Viread) 300 mg PO Q48H [facility] 234 [facility]S [facility]; Protocol Stop: 10/05/18 12:45 Last Admin: 07/22/18 13:06 Dose: 300 mg Trimethoprim/Sulfamethoxazole (Bactrim Ds Tab) 1 tab PO [facility] [place]; Protocol Stop: 09/04/18 09:00 Last Admin: 07/23/18 09:07 Dose: 1 tab Tropicamide (Mydriacyl 1% Opht Soln 15ml) 1 drop OU PRN PRN PRN Reason: dilate pupils Last Admin: 07/12/18 07:10 Dose: 1 drop Valganciclovir (Valcyte) 450 mg PO [facility] [place] Last Admin: 07/23/18 09:06 Dose: 450 mg - Labs Labs: 07/23/18 15:20 07/23/18 15:20 PT 12.1 Seconds (9.8-13.1) 07/23/18 15:20 INR 1.1 07/23/18 15:20 APTT 28.6 Seconds (25.6-37.1) 07/23/18 15:20 - Constitutional Appears: Confused, Cachectic, Chronically Ill - Head Exam Head Exam: ATRAUMATIC, NORMAL INSPECTION, NORMOCEPHALIC - Eye Exam Eye Exam: EOMI, Normal appearance, PERRL Pupil Exam: NORMAL ACCOMODATION, PERRL - ENT Exam ENT Exam: Mucous Membranes Moist, Normal Exam - Neck Exam Neck Exam: Full ROM, Normal Inspection. absent: Lymphadenopathy - Respiratory Exam Respiratory Exam: Clear to Ausculation Bilateral, NORMAL BREATHING PATTERN - Cardiovascular Exam Cardiovascular Exam: REGULAR RHYTHM, +S1, +S2. absent: Murmur - GI/Abdominal Exam GI & Abdominal Exam: Soft, Normal Bowel Sounds. absent: Tenderness - Rectal Exam Rectal Exam: Deferred - Exam Exam: NORMAL INSPECTION - Extremities Exam Extremities Exam: Full ROM, Normal Capillary Refill, Normal Inspection. absent: Joint Swelling, Pedal Edema - Back Exam Back Exam: NORMAL INSPECTION - Neurological Exam Neurological Exam: Alert, Awake, CN II-XII Intact. absent: Normal Gait, Oriented x3 Neuro motor strength exam: Left Upper Extremity: 3, Right Upper Extremity: 3, Left Lower Extremity: 3, Right Lower Extremity: 3 - Psychiatric Exam Psychiatric exam: Normal Affect, Normal Mood - Skin Skin Exam: Dry, Intact, Normal Color, Warm Assessment and Plan (1) Acute renal failure Status: Acute (2) Altered mental status Status: Acute (3) Diabetes mellitus Status: Acute (4) HIV (human immunodeficiency virus infection) Status: Acute (5) Pneumonia Status: Resolved (6) Encephalopathy Status: Acute (7) CMV (cytomegalovirus) infection Status: Acute - Assessment and Plan (Free Text) 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
[2018-07-24] MEDS: Nystatin 100,000 Units/ml Oral Susp 5 ml UD PO SCH ×4 (10:39→21:18)
[2018-07-24] MEDS: Potassium Chloride 20 mEq/15 ml LIQ UD PO SCH (10:40)
--- NOTE | 2018-07-24 11:20 | CP.PCM.CON ---
History of Present Illness - History of Present Illness History of Present Illness: Psychiatry consult follow-up note CC: Patient unable to talk due to trach HPI: 67 year old male with prolonged hospital course with HIV/AIDS, pneumonia, renal failure, CMV infection, anemia, and progressive leukopenia/neutropenia. Patient unable to verbalize complaints but he is able to shake his head yes and no and attempt to whisper. He denies feeling acutely depressed. He did say yes, when asked if he feels anxious at times. He denied that he wants to take acute psychiatric medications at this time. He denies acute AH/VH/SI. Impression: 67 yo male, currently denying acute depression and declined psychiatric medications. -No acute psychiatric medications or acute psychiatric admission indicated at this time Past Patient History - Past Social History Smoking Status: Never Smoked Alcohol: None (Pt deied) Drugs: Denies (Pt denied.) Home Situation {Lives}: Alone - CARDIAC Hx Pacemaker: No - PULMONARY Hx Pneumonia: Yes - HEMATOLOGICAL/ONCOLOGICAL Hx Cancer: No - MUSCULOSKELETAL/RHEUMATOLOGICAL Hx Falls: No - PSYCHIATRIC Hx Substance Use: No - SURGICAL HISTORY Hx Mastectomy: No Meds Allergies/Adverse Reactions: Allergies Allergy/AdvReac Type Severity Reaction Status Date / Time Unobtainable Allergy Verified 06/11/18 20:48 - Medications Medications: Current Medications Acetaminophen (Tylenol 650 Mg Supp) 650 mg [place] Q6 PRN PRN Reason: Fever >100.4 F Last Admin: 06/20/18 02:30 Dose: 650 mg Acetaminophen (Tylenol 325mg Tab) 650 mg PO Q4 PRN PRN Reason: Fever >100.4 F Last Admin: 07/16/18 16:44 Dose: 650 mg Acetylcysteine (Mucomyst 10% 4ml) 4 ml IH RQ6 [facility] Last Admin: 07/24/18 09:02 Dose: Not Given Albuterol/Ipratropium (Duoneb 3 Mg/0.5 Mg (3 Ml) Ud) 3 ml INH RQ6 PRN PRN Reason: Shortness of Breath Last Admin: 07/23/18 19:03 Dose: 3 ml Dimethicone (Proshield Plus Skin Protectant) 1 applic TOP Q8 [facility] Last Admin: 07/24/18 01:11 Dose: 1 applic Enoxaparin Sodium (Lovenox) 30 mg SC DAILY [facility]; Protocol Last Admin: 06/17/18 09:20 Dose: 30 mg Haloperidol (Haldol) 2 mg PO TID PRN PRN Reason: Agitation Haloperidol Lactate (Haldol) 0.5 mg IM Q6 PRN PRN Reason: Agitation Last Admin: 07/23/18 22:55 Dose: 0.5 mg Insulin Human Lispro (Humalog) 0 units SC ACHS [facility]; Protocol Last Admin: 07/24/18 09:06 Dose: 2 units Lamivudine (Epivir) 150 mg PO DAILY [facility]; Protocol Stop: 10/05/18 12:45 Last Admin: 07/23/18 09:07 Dose: 150 mg Lorazepam (Ativan) 0.5 mg IM Q6 PRN PRN Reason: Agitation Last Admin: 07/24/18 07:28 Dose: 0.5 mg Methylprednisolone (Medrol) 4 mg PO Q48H [facility] Last Admin: 07/22/18 13:22 Dose: Not Given Metoprolol Tartrate (Lopressor) 50 mg PO Q12 [facility] Last Admin: 07/24/18 10:37 Dose: 50 mg Nystatin (Nystop Topical Powder) 1 applic TOP TID [facility] Last Admin: 07/23/18 18:25 Dose: 1 applic Nystatin (Nystatin Oral Susp) 5 ml PO QID [facility] Last Admin: 07/24/18 10:39 Dose: 5 ml Ondansetron HCl (Zofran Inj) 4 mg IVP Q4 PRN PRN Reason: Nausea/Vomiting Last Admin: 07/05/18 21:16 Dose: 4 mg Phenylephrine HCl (Phenylephrine Opht 2.5% Soln) 1 drop OU PRN PRN PRN Reason: dilate pupils Last Admin: 07/12/18 07:09 Dose: 1 drop Potassium Chloride (Potassium Chloride Oral Soln) 10 meq PO DAILY [facility] Last Admin: 07/24/18 10:40 Dose: 10 meq Raltegravir (Isentress) 400 mg PO BID [facility]; Protocol Stop: 08/05/23 17:00 Last Admin: 07/24/18 10:36 Dose: 400 mg Tenofovir Disoproxil Fumarate (Viread) 300 mg PO Q48H [facility]; Protocol Stop: 10/05/18 12:45 Last Admin: 07/22/18 13:06 Dose: 300 mg Trimethoprim/Sulfamethoxazole (Bactrim Ds Tab) 1 tab PO MWF [facility]; Protocol Stop: 09/04/18 09:00 Last Admin: 07/23/18 09:07 Dose: 1 tab Tropicamide (Mydriacyl 1% Opht Soln 15ml) 1 drop OU PRN PRN PRN Reason: dilate pupils Last Admin: 07/12/18 07:10 Dose: 1 drop Valganciclovir (Valcyte) 450 mg PO [facility] Last Admin: 07/23/18 09:06 Dose: 450 mg Results - Vital Signs Recent Vital Signs: Last Vital Signs Temp 97.9 F 07/24/18 08:16 Pulse 77 07/24/18 10:37 Resp 18 07/24/18 08:16 BP 129/77 07/24/18 10:37 Pulse Ox 99 07/24/18 08:16 - Labs Result Diagrams: 07/23/18 15:20 07/23/18 15:20 Labs: Laboratory Results - last 24 hr 07/22/18 07/23/18 07/23/18 05:45 15:20 15:20 WBC 4.2 L D RBC 3.70 L Hgb 10.8 L Hct 33.0 L MCV 89.4 MCH 29.3 MCHC 32.8 L RDW 19.0 H Plt Count 246 PT 12.1 INR 1.1 APTT 28.6 Sodium Potassium Chloride Carbon Dioxide Anion Gap BUN Creatinine Est GFR ( Amer) Est GFR (Non-Af Amer) POC Glucose (mg/dL) Random Glucose Calcium Phosphorus Magnesium Total Bilirubin AST ALT Alkaline Phosphatase Total Protein Albumin Globulin Albumin/Globulin Ratio Folate 6.4 07/23/18 07/23/18 07/23/18 15:20 16:38 21:18 WBC RBC Hgb Hct MCV MCH MCHC RDW Plt Count PT INR APTT Sodium 140 Potassium 3.3 L Chloride 104 Carbon Dioxide 22 Anion Gap 17 BUN 17 Creatinine 1.5 Est GFR ( Amer) 57 Est GFR (Non-Af Amer) 47 POC Glucose (mg/dL) 122 H 172 H Random Glucose 132 H Calcium 9.2 Phosphorus 2.2 L Magnesium 1.7 Total Bilirubin 0.5 AST 25 ALT 23 Alkaline Phosphatase 116 Total Protein 6.4 Albumin 3.1 L Globulin 3.2 Albumin/Globulin Ratio 1.0 Folate 07/24/18 06:14 WBC RBC Hgb Hct MCV MCH MCHC RDW Plt Count PT INR APTT Sodium Potassium Chloride Carbon Dioxide Anion Gap BUN Creatinine Est GFR ( Amer) Est GFR (Non-Af Amer) POC Glucose (mg/dL) 221 H Random Glucose Calcium Phosphorus Magnesium Total Bilirubin AST ALT Alkaline Phosphatase Total Protein Albumin Globulin Albumin/Globulin Ratio Folate
[2018-07-24] MEDS ORDERED: Potassium Chloride 20 mEq/15 ml LIQ UD PO ONE (13:00)
--- NOTE | 2018-07-24 14:23 | CP.PCM.PN ---
Subjective - Date & Time of Evaluation Date of Evaluation: 07/24/18 Time of Evaluation: 12:15 - Subjective Subjective: F/U S/P Respiratory failure/ Tracheostomy. Pt awake, smiling, no A/D, follows commands, having respiratory Tx through the Tracheostomy, poor appetite. Objective - Vital Signs/Intake and Output Vital Signs (last 24 hours): Temp Pulse Resp BP Pulse Ox 97.9 F 77 18 129/77 99 07/24/18 08:16 07/24/18 10:37 07/24/18 08:16 07/24/18 10:37 07/24/18 08:16 - Medications Medications: Current Medications Acetaminophen (Tylenol 650 Mg Supp) 650 mg [place] Q6 PRN PRN Reason: Fever >100.4 F Last Admin: 06/20/18 02:30 Dose: 650 mg Acetaminophen (Tylenol 325mg Tab) 650 mg PO Q4 PRN PRN Reason: Fever >100.4 F Last Admin: 07/16/18 16:44 Dose: 650 mg Acetylcysteine (Mucomyst 10% 4ml) 4 ml IH RQ6 [facility] Last Admin: 07/24/18 13:07 Dose: Not Given Albuterol/Ipratropium (Duoneb 3 Mg/0.5 Mg (3 Ml) Ud) 3 ml INH RQ6 PRN PRN Reason: Shortness of Breath Last Admin: 07/23/18 19:03 Dose: 3 ml Dimethicone (Proshield Plus Skin Protectant) 1 applic TOP Q8 [facility] Last Admin: 07/24/18 13:24 Dose: Not Given Enoxaparin Sodium (Lovenox) 30 mg SC DAILY [facility]; Protocol Last Admin: 06/17/18 09:20 Dose: 30 mg Haloperidol (Haldol) 2 mg PO TID PRN PRN Reason: Agitation Haloperidol Lactate (Haldol) 0.5 mg IM Q6 PRN PRN Reason: Agitation Last Admin: 07/23/18 22:55 Dose: 0.5 mg Insulin Human Lispro (Humalog) 0 units SC [facility]; Protocol Last Admin: 07/24/18 12:30 Dose: Not Given Lamivudine (Epivir) 150 mg PO DAILY [facility]; Protocol Stop: 10/05/18 12:45 Last Admin: 07/24/18 13:21 Dose: 150 mg Lorazepam (Ativan) 0.5 mg IM Q6 PRN PRN Reason: Agitation Last Admin: 07/24/18 07:28 Dose: 0.5 mg Methylprednisolone (Medrol) 4 mg PO Q48H [facility] Last Admin: 07/24/18 13:23 Dose: 4 mg Metoprolol Tartrate (Lopressor) 50 mg PO Q12 [facility] Last Admin: 07/24/18 10:37 Dose: 50 mg Nystatin (Nystop Topical Powder) 1 applic TOP TID [facility] Last Admin: 07/24/18 13:24 Dose: 1 applic Nystatin (Nystatin Oral Susp) 5 ml PO QID [facility] Last Admin: 07/24/18 13:23 Dose: 5 ml Ondansetron HCl (Zofran Inj) 4 mg IVP Q4 PRN PRN Reason: Nausea/Vomiting Last Admin: 07/05/18 21:16 Dose: 4 mg Phenylephrine HCl (Phenylephrine Opht 2.5% Soln) 1 drop OU PRN PRN PRN Reason: dilate pupils Last Admin: 07/12/18 07:09 Dose: 1 drop Potassium Chloride (Potassium Chloride Oral Soln) 10 meq PO DAILY [facility] Last Admin: 07/24/18 10:40 Dose: 10 meq Potassium Phos/Sodium Phos (Neutra-Phos) 1 pkt PO BID [facility] Raltegravir (Isentress) 400 mg PO BID [facility]; Protocol Stop: 08/05/23 17:00 Last Admin: 07/24/18 10:36 Dose: 400 mg Tenofovir Disoproxil Fumarate (Viread) 300 mg PO Q48H [facility]; Protocol Stop: 10/05/18 12:45 Last Admin: 07/24/18 13:25 Dose: 300 mg Trimethoprim/Sulfamethoxazole (Bactrim Ds Tab) 1 tab PO [facility]; Protocol Stop: 09/04/18 09:00 Last Admin: 07/23/18 09:07 Dose: 1 tab Tropicamide (Mydriacyl 1% Opht Soln 15ml) 1 drop OU PRN PRN PRN Reason: dilate pupils Last Admin: 07/12/18 07:10 Dose: 1 drop Valganciclovir (Valcyte) 450 mg PO [facility] Last Admin: 07/23/18 09:06 Dose: 450 mg - Labs Labs: 07/23/18 15:20 07/23/18 15:20 PT 12.1 Seconds (9.8-13.1) 07/23/18 15:20 INR 1.1 07/23/18 15:20 APTT 28.6 Seconds (25.6-37.1) 07/23/18 15:20 - Constitutional Appears: Chronically Ill - Head Exam Head Exam: NORMAL INSPECTION - Eye Exam Eye Exam: PERRL - ENT Exam ENT Exam: Normal Exam - Neck Exam Additional comments: Tracheostomy, Trach collar - Respiratory Exam Respiratory Exam: Decreased Breath Sounds (at bases) - Cardiovascular Exam Cardiovascular Exam: REGULAR RHYTHM - GI/Abdominal Exam GI & Abdominal Exam: Soft, Normal Bowel Sounds - Exam Additional comments: Catheter - Extremities Exam Extremities Exam: Normal Inspection - Neurological Exam Neurological Exam: Alert Additional comments: No focal motor deficit, able to answer yes or no with head movements. - Psychiatric Exam Psychiatric exam: Anxious Additional comments: Restless at times - Skin Skin Exam: Warm Assessment and Plan (1) Respiratory failure Status: Resolved (2) Tracheostomy status Status: Acute (3) Altered mental status Status: Acute (4) HIV (human immunodeficiency virus infection) Status: Acute (5) Fever Status: Resolved (6) Pneumonia Status: Resolved (7) Severe sepsis Status: Resolved (8) Acute renal failure Status: Acute (9) Diabetes mellitus Status: Acute (10) Anemia Status: Chronic (11) Leukopenia Status: Acute - Assessment and Plan (Free Text) Plan: Contiue HAART and rest of Tx.
--- NOTE | 2018-07-24 17:04 | CP.PCM.PCO ---
Additional Comments - Additional Comments Additional Comments: Patient fell off bed as reported by RN. Patient [employer] did not alert. Patient seen and examined. Patient denies pain or headache. Patient neurologically intact and appears to be at his baseline mentation. There are no observed bruising, lacerations, or abrasions.
[2018-07-24] MEDS: Potassium & Sodium Phosphate PO SCH (17:08)
[2018-07-25] MEDS: Proshield Plus GEL TOP SCH ×2 (00:16→10:37)
[2018-07-25] MEDS: Acetylcysteine 10% 4 ML IH SCH ×2 (01:25→08:11)
--- NOTE | 2018-07-25 01:41 | CP.PCM.PN ---
Subjective - Date & Time of Evaluation Date of Evaluation: 07/23/18 Time of Evaluation: 10:00 - Subjective Subjective: Awake, appears comfortable Objective - Vital Signs/Intake and Output Vital Signs (last 24 hours): Temp Pulse Resp BP Pulse Ox 98 F 70 18 147/98 H 96 07/24/18 23:59 07/24/18 23:59 07/24/18 23:59 07/24/18 23:59 07/24/18 23:59 - Medications Medications: Current Medications Acetaminophen (Tylenol 650 Mg Supp) 650 mg [place] Q6 PRN PRN Reason: Fever >100.4 F Last Admin: 06/20/18 02:30 Dose: 650 mg Acetaminophen (Tylenol 325mg Tab) 650 mg PO Q4 PRN PRN Reason: Fever >100.4 F Last Admin: 07/16/18 16:44 Dose: 650 mg Acetylcysteine (Mucomyst 10% 4ml) 4 ml IH RQ6 [facility] Last Admin: 07/25/18 01:25 Dose: Not Given Albuterol/Ipratropium (Duoneb 3 Mg/0.5 Mg (3 Ml) Ud) 3 ml INH RQ6 PRN PRN Reason: Shortness of Breath Last Admin: 07/23/18 19:03 Dose: 3 ml Dimethicone (Proshield Plus Skin Protectant) 1 applic TOP Q8 [facility] Last Admin: 07/25/18 00:16 Dose: 1 applic Enoxaparin Sodium (Lovenox) 30 mg SC DAILY [facility]; Protocol Last Admin: 06/17/18 09:20 Dose: 30 mg Haloperidol (Haldol) 2 mg PO TID PRN PRN Reason: Agitation Haloperidol Lactate (Haldol) 0.5 mg IM Q6 PRN PRN Reason: Agitation Last Admin: 07/24/18 17:04 Dose: 0.5 mg Insulin Human Lispro (Humalog) 0 units SC ACHS [facility]; Protocol Last Admin: 07/24/18 21:16 Dose: Not Given Lamivudine (Epivir) 150 mg PO DAILY [facility]; Protocol Stop: 10/05/18 12:45 Last Admin: 07/24/18 13:21 Dose: 150 mg Lorazepam (Ativan) 0.5 mg IM Q6 PRN PRN Reason: Agitation Last Admin: 07/24/18 22:36 Dose: 0.5 mg Methylprednisolone (Medrol) 4 mg PO Q48H [facility] Last Admin: 07/24/18 13:23 Dose: 4 mg Metoprolol Tartrate (Lopressor) 50 mg PO Q12 [facility] Last Admin: 07/24/18 21:11 Dose: 50 mg Nystatin (Nystop Topical Powder) 1 applic TOP TID [facility] Last Admin: 07/24/18 17:10 Dose: 1 applic Nystatin (Nystatin Oral Susp) 5 ml PO QID [facility] Last Admin: 07/24/18 21:18 Dose: 5 ml Ondansetron HCl (Zofran Inj) 4 mg IVP Q4 PRN PRN Reason: Nausea/Vomiting Last Admin: 07/05/18 21:16 Dose: 4 mg Phenylephrine HCl (Phenylephrine Opht 2.5% Soln) 1 drop OU PRN PRN PRN Reason: dilate pupils Last Admin: 07/12/18 07:09 Dose: 1 drop Potassium Chloride (Potassium Chloride Oral Soln) 10 meq PO DAILY [facility] Last Admin: 07/24/18 10:40 Dose: 10 meq Potassium Phos/Sodium Phos (Neutra-Phos) 1 pkt PO BID [facility] Last Admin: 07/24/18 17:08 Dose: 1 pkt Raltegravir (Isentress) 400 mg PO BID [facility]; Protocol Stop: 08/05/23 17:00 Last Admin: 07/24/18 17:08 Dose: 400 mg Tenofovir Disoproxil Fumarate (Viread) 300 mg PO Q48H [facility]; Protocol Stop: 10/05/18 12:45 Last Admin: 07/24/18 13:25 Dose: 300 mg Trimethoprim/Sulfamethoxazole (Bactrim Ds Tab) 1 tab PO [facility] [place]; Protocol Stop: 09/04/18 09:00 Last Admin: 07/23/18 09:07 Dose: 1 tab Tropicamide (Mydriacyl 1% Opht Soln 15ml) 1 drop OU PRN PRN PRN Reason: dilate pupils Last Admin: 07/12/18 07:10 Dose: 1 drop Valganciclovir (Valcyte) 450 mg PO F [facility] Last Admin: 07/23/18 09:06 Dose: 450 mg - Labs Labs: 07/23/18 15:20 07/23/18 15:20 PT 12.1 Seconds (9.8-13.1) 07/23/18 15:20 INR 1.1 07/23/18 15:20 APTT 28.6 Seconds (25.6-37.1) 07/23/18 15:20 - Constitutional Appears: Cachectic - Eye Exam Eye Exam: Normal appearance - ENT Exam ENT Exam: Mucous Membranes Dry - Respiratory Exam Respiratory Exam: NORMAL BREATHING PATTERN - Cardiovascular Exam Cardiovascular Exam: +S1, +S2 - GI/Abdominal Exam GI & Abdominal Exam: Normal Bowel Sounds Assessment and Plan (1) Leukopenia Assessment & Plan: multifactorial HIV/AIDS, meds (bactrim and antivirals) given importance of continuing infectious treatment, recommend continuing abx/antivirals s/p Granix Status: Acute (2) Anemia Assessment & Plan: anemia of chronic disease and anemia of HIV Procrit if H/H declines Status: Chronic
--- NOTE | 2018-07-25 01:43 | CP.PCM.PN ---
Subjective - Date & Time of Evaluation Date of Evaluation: 07/24/18 Time of Evaluation: 13:00 - Subjective Subjective: Appears comfortable Objective - Vital Signs/Intake and Output Vital Signs (last 24 hours): Temp Pulse Resp BP Pulse Ox 98 F 70 18 147/98 H 96 07/24/18 23:59 07/24/18 23:59 07/24/18 23:59 07/24/18 23:59 07/24/18 23:59 - Medications Medications: Current Medications Acetaminophen (Tylenol 650 Mg Supp) 650 mg [place] Q6 PRN PRN Reason: Fever >100.4 F Last Admin: 06/20/18 02:30 Dose: 650 mg Acetaminophen (Tylenol 325mg Tab) 650 mg PO Q4 PRN PRN Reason: Fever >100.4 F Last Admin: 07/16/18 16:44 Dose: 650 mg Acetylcysteine (Mucomyst 10% 4ml) 4 ml IH RQ6 [facility] Last Admin: 07/25/18 01:25 Dose: Not Given Albuterol/Ipratropium (Duoneb 3 Mg/0.5 Mg (3 Ml) Ud) 3 ml INH RQ6 PRN PRN Reason: Shortness of Breath Last Admin: 07/23/18 19:03 Dose: 3 ml Dimethicone (Proshield Plus Skin Protectant) 1 applic TOP Q8 [facility] Last Admin: 07/25/18 00:16 Dose: 1 applic Enoxaparin Sodium (Lovenox) 30 mg SC DAILY [facility]; Protocol Last Admin: 06/17/18 09:20 Dose: 30 mg Haloperidol (Haldol) 2 mg PO TID PRN PRN Reason: Agitation Haloperidol Lactate (Haldol) 0.5 mg IM Q6 PRN PRN Reason: Agitation Last Admin: 07/24/18 17:04 Dose: 0.5 mg Insulin Human Lispro (Humalog) 0 units SC ACHS [facility]; Protocol Last Admin: 07/24/18 21:16 Dose: Not Given Lamivudine (Epivir) 150 mg PO DAILY [facility]; Protocol Stop: 10/05/18 12:45 Last Admin: 07/24/18 13:21 Dose: 150 mg Lorazepam (Ativan) 0.5 mg IM Q6 PRN PRN Reason: Agitation Last Admin: 07/24/18 22:36 Dose: 0.5 mg Methylprednisolone (Medrol) 4 mg PO Q48H [facility] Last Admin: 07/24/18 13:23 Dose: 4 mg Metoprolol Tartrate (Lopressor) 50 mg PO Q12 [facility] Last Admin: 07/24/18 21:11 Dose: 50 mg Nystatin (Nystop Topical Powder) 1 applic TOP TID [facility] Last Admin: 07/24/18 17:10 Dose: 1 applic Nystatin (Nystatin Oral Susp) 5 ml PO QID [facility] Last Admin: 07/24/18 21:18 Dose: 5 ml Ondansetron HCl (Zofran Inj) 4 mg IVP Q4 PRN PRN Reason: Nausea/Vomiting Last Admin: 07/05/18 21:16 Dose: 4 mg Phenylephrine HCl (Phenylephrine Opht 2.5% Soln) 1 drop OU PRN PRN PRN Reason: dilate pupils Last Admin: 07/12/18 07:09 Dose: 1 drop Potassium Chloride (Potassium Chloride Oral Soln) 10 meq PO DAILY [facility] Last Admin: 07/24/18 10:40 Dose: 10 meq Potassium Phos/Sodium Phos (Neutra-Phos) 1 pkt PO BID [facility] Last Admin: 07/24/18 17:08 Dose: 1 pkt Raltegravir (Isentress) 400 mg PO BID [facility]; Protocol Stop: 08/05/23 17:00 Last Admin: 07/24/18 17:08 Dose: 400 mg Tenofovir Disoproxil Fumarate (Viread) 300 mg PO Q48H [facility]; Protocol Stop: 10/05/18 12:45 Last Admin: 07/24/18 13:25 Dose: 300 mg Trimethoprim/Sulfamethoxazole (Bactrim Ds Tab) 1 tab PO [facility]; Protocol Stop: 09/04/18 09:00 Last Admin: 07/23/18 09:07 Dose: 1 tab Tropicamide (Mydriacyl 1% Opht Soln 15ml) 1 drop OU PRN PRN PRN Reason: dilate pupils Last Admin: 07/12/18 07:10 Dose: 1 drop Valganciclovir (Valcyte) 450 mg PO F [facility] Last Admin: 07/23/18 09:06 Dose: 450 mg - Labs Labs: 07/23/18 15:20 07/23/18 15:20 PT 12.1 Seconds (9.8-13.1) 07/23/18 15:20 INR 1.1 07/23/18 15:20 APTT 28.6 Seconds (25.6-37.1) 07/23/18 15:20 - Constitutional Appears: Cachectic - Head Exam Head Exam: ATRAUMATIC - Eye Exam Eye Exam: Normal appearance - ENT Exam ENT Exam: Mucous Membranes Dry - Respiratory Exam Respiratory Exam: NORMAL BREATHING PATTERN - Cardiovascular Exam Cardiovascular Exam: +S1, +S2 - GI/Abdominal Exam GI & Abdominal Exam: Normal Bowel Sounds Assessment and Plan (1) Leukopenia Assessment & Plan: multifactorial HIV/AIDS, meds (bactrim and antivirals) given importance of continuing infectious treatment, recommend continuing abx/antivirals s/p Granix Status: Acute (2) Anemia Assessment & Plan: anemia of HIV and chronic disease Status: Chronic
[2018-07-25 06:43] LABS: HEMOGLOBIN 11.2 g/dL (12.0-18.0); MEAN CELL VOLUME 89.5 fl (80.0-94.0); MEAN CORPUSCULAR HEMOGLOBIN 29.7 pg (27.0-31.0); MEAN CORPUSCULAR HGB CONC 33.2 g/dL (33.0-37.0); RBC 3.76 Mil/uL (4.40-5.90); WHITE BLOOD COUNT 4.8 K/uL (4.8-10.8)
[2018-07-25 06:55] LABS: ALBUMIN 3.3 g/dL (3.5-5.0); CALCIUM 9.5 mg/dL (8.4-10.2)
[2018-07-25] MEDS: Albuterol-Ipratrop 3 mg / 0.5 (3 ml) UD INH PRN (08:11)
[2018-07-25 08:36] VITALS: PULSE 84; RESP 20; TEMP 97.8; O2SAT 100
[2018-07-25] MEDS ORDERED: Potassium Chloride 20 mEq/15 ml LIQ UD PO ONE (09:05)
[2018-07-25] MEDS: Nystatin 100,000 Units/ml Oral Susp 5 ml UD PO SCH ×2 (09:42→10:36)
[2018-07-25] MEDS: Insulin Lispro (humaLOG) 100 Units/ml Inj SC SCH (09:42)
[2018-07-25] MEDS: Potassium & Sodium Phosphate PO SCH ×2 (09:42→10:36)
[2018-07-25] MEDS: Potassium Chloride 20 mEq/15 ml LIQ UD PO SCH ×2 (09:46→10:38)
[2018-07-25] MEDS: Tmp-Smz 800 mg-160 mg DS Tab PO SCH ×2 (09:47→10:32)
[2018-07-25 10:33] VITALS: BP 147/91
--- NOTE | 2018-07-25 12:29 | CP.PCM.DIS ---
Provider - Provider Date of Admission: 06/12/18 00:24 Attending physician: Hipolito Glover MD Consults: 06/11/18 23:26 Nephrology Consult Stat Comment: Consulting Provider: Erik Cartwright Consulting Physician: Erik Cartwright Reason for Consult: ARF 06/12/18 11:07 Infectious Disease Consult Routine Comment: Consulting Provider: Kristopher Ellison Consulting Physician: Kristopher Ellison Reason for Consult: ARF; AMS; rapid hiv + 06/12/18 14:02 Neurology Consult Routine Comment: Consulting Provider: Maggie Low Consulting Physician: Maggie Low Reason for Consult: ams; ARF 06/13/18 16:55 Surgical [General Surgery Consult] Routine Comment: Consulting Provider: Jakob Castellanos Consulting Physician: Jakob Castellanos Reason for Consult: TLC insertion 06/25/18 08:58 Wound Care [Nursing Referral for Wound Care] Routine Comment: Physician Instructions: Reason For Exam: moisture assoc damage, 06/29/18 15:49 Surgical [General Surgery Consult] Routine Comment: Consulting Provider: Dyllan Milligan Consulting Physician: Dyllan Milligan Reason for Consult: Jimenez Glover: Acute Resp Failure on MV. 07/02/18 13:26 Gastroenterology Consult Routine Comment: Consulting Provider: Chris Edgar Consulting Physician: Chris Edgar Reason for Consult: PEG 07/10/18 12:11 Physician Consult Routine Comment: Consulting Provider: Liang Hadley Consulting Physician: Liang Hadley Reason for Consult: hx cm p proctitis Additional Comments: pt r/o cmv encephalitis hiv encephalitis hx cmv proctitis r/o opthalmitis 07/20/18 18:03 Psychiatry Consult Routine Comment: agitation, combative Consulting Provider: Carroll Peter Consulting Physician: Carroll Peter Reason for Consult: agitation, combative 07/21/18 07:47 Hematology Oncology Consult Routine Comment: Consulting Provider: David Langston Consulting Physician: David Langston Reason for Consult: WBC 0.9 Diagnosis - Discharge Diagnosis (1) Respiratory failure Status: Resolved (2) Altered mental status Status: Acute Priority: High (3) HIV (human immunodeficiency virus infection) Status: Acute Priority: High (4) Fever Status: Resolved (5) Pneumonia Status: Resolved Priority: High (6) Severe sepsis Status: Resolved Priority: High (7) Acute renal failure Status: Acute Priority: High (8) Diabetes mellitus Status: Acute Priority: High Hospital Course - Lab Results Lab Results: Micro Results 06/18/18 08:26 Other: Please Indicate Mycobacterial Culture - Preliminary 06/21/18 08:14 Other: Please Indicate Mycobacterial Culture - Preliminary 06/18/18 10:59 Other: Please Indicate Mycobacterial Culture - Preliminary 07/10/18 18:00 Sputum Induced Gram Stain - Final 07/10/18 18:00 Sputum Induced Sputum Culture - Final Yeast Species 07/09/18 17:28 Naris MRSA Culture (Admit) - Final MRSA NOT DETECTED 06/26/18 17:00 Trachasp Gram Stain - Final 06/26/18 17:00 Trachasp Sputum Culture - Final NORMAL ORAL NILE 06/18/18 10:59 Sputum Fungal Culture - Final Padmini Famata 06/22/18 00:24 Bowel Ova and Parasite Concentrate Exam - Final 06/18/18 12:10 Cerebral Spinal Fluid Gram Stain - Final 06/18/18 12:10 Cerebral Spinal Fluid CSF Culture - Final No growth. 06/21/18 12:20 Trachasp Gram Stain - Final 06/21/18 12:20 Trachasp Sputum Culture - Final Yeast Species 06/18/18 11:00 Trachasp Gram Stain - Final 06/18/18 11:00 Trachasp Sputum Culture - Final Yeast Species 06/17/18 16:55 Bowel Ova and Parasite Concentrate Exam - Final 06/18/18 12:10 Cerebral Spinal Fluid Debi Ink - Final No growth. 06/13/18 10:42 Blood Blood Culture - Final NO GROWTH AFTER 5 DAYS 06/13/18 10:42 Blood Gram Stain - Final TEST NOT PERFORMED 06/13/18 10:42 Blood Blood Culture - Final NO GROWTH AFTER 5 DAYS 06/13/18 10:42 Blood Gram Stain - Final TEST NOT PERFORMED 06/12/18 18:30 Blood Blood Culture - Final NO GROWTH AFTER 5 DAYS 06/12/18 18:30 Blood Gram Stain - Final TEST NOT PERFORMED 06/13/18 08:23 Naris MRSA Culture (Admit) - Final MRSA NOT DETECTED 06/13/18 05:45 Urine,Crisostomo Urine Culture - Final No Growth (<1,000 CFU/ML) Most Recent Lab Values WBC 4.8 K/uL (4.8-10.8) 07/25/18 06:15 RBC 3.76 Mil/uL (4.40-5.90) L 07/25/18 06:15 Hgb 11.2 g/dL (12.0-18.0) L 07/25/18 06:15 Hct 33.6 % (35.0-51.0) L 07/25/18 06:15 MCV 89.5 fl (80.0-94.0) 07/25/18 06:15 MCH 29.7 pg (27.0-31.0) 07/25/18 06:15 MCHC 33.2 g/dL (33.0-37.0) 07/25/18 06:15 RDW 19.0 % (11.5-14.5) H 07/25/18 06:15 Plt Count 258 K/uL (130-400) 07/25/18 06:15 MPV 8.6 fl (7.2-11.7) 07/22/18 05:45 Neut % (Auto) 81.5 % (50.0-75.0) H 07/22/18 05:45 Lymph % (Auto) 15.1 % (20.0-40.0) L 07/22/18 05:45 Converse % (Auto) 2.0 % (0.0-10.0) 07/22/18 05:45 Eos % (Auto) 0.3 % (0.0-4.0) 07/22/18 05:45 Baso % (Auto) 1.1 % (0.0-2.0) 07/22/18 05:45 Neut # (Auto) 1.0 K/uL (1.8-7.0) L 07/22/18 05:45 Lymph # (Auto) 0.2 K/uL (1.0-4.3) L 07/22/18 05:45 Converse # (Auto) 0.0 K/uL (0.0-0.8) 07/22/18 05:45 Eos # (Auto) 0.0 K/uL (0.0-0.7) 07/22/18 05:45 Baso # (Auto) 0.0 K/uL (0.0-0.2) 07/22/18 05:45 Neutrophils % (Manual) 92 % (42-75) H 07/03/18 04:30 Band Neutrophils % 2 % (0-2) 07/03/18 04:30 Lymphocytes % (Manual) 4 % (20-50) L 07/03/18 04:30 Monocytes % (Manual) 0 % (0-10) 07/03/18 04:30 Eosinophils % (Manual) 2 % (0-7) 07/03/18 04:30 Nucleated RBC % 1 % (0-0) H 06/19/18 04:25 Smudge Cells Present 06/26/18 06:00 Toxic Granulation Present 06/25/18 06:30 Platelet Estimate Normal (NORMAL) 07/03/18 04:30 Hypochromasia (manual) Slight 07/03/18 04:30 Poikilocytosis (manual Moderate 06/15/18 04:30 Anisocytosis (manual) Slight 07/03/18 04:30 Tear Drop Cells Slight 07/03/18 04:30 Ovalocytes Slight 07/03/18 04:30 Rasheed Cells Slight 07/03/18 04:30 Schistocytes Slight 07/03/18 04:30 Retic Count 0.5 % (0.5-1.5) 07/22/18 05:45 PT 12.1 Seconds (9.8-13.1) 07/23/18 15:20 INR 1.1 07/23/18 15:20 APTT 28.6 Seconds (25.6-37.1) 07/23/18 15:20 pCO2 31 mm/Hg (35-45) L 07/11/18 15:46 pO2 90 mm/Hg (80-100) 07/11/18 15:46 HCO3 27.0 mmol/L (21-28) 07/11/18 15:46 ABG pH 7.52 (7.35-7.45) H 07/11/18 15:46 ABG Total CO2 26.3 mmol/L (22-28) 07/11/18 15:46 ABG O2 Saturation 100.0 % (95-98) H 07/11/18 15:46 ABG O2 Content 12.2 ML/dL (15-23) L 07/11/18 15:46 ABG Base Excess 2.6 mmol/L (-2.0-3.0) 07/11/18 15:46 ABG Hemoglobin 8.8 g/dL (11.7-17.4) L 07/11/18 15:46 ABG Carboxyhemoglobin 1.6 % (0.5-1.5) H 07/11/18 15:46 POC ABG HHb (Measured) 0.0 % (0.0-5.0) 07/11/18 15:46 ABG Methemoglobin 1.2 % (0.0-3.0) 07/11/18 15:46 ABG O2 Capacity 12.2 mL/dL (16-24) L 07/11/18 15:46 Bright Test Yes 07/11/18 15:46 ABG Potassium 4.3 mmol/L (3.6-5.2) 07/07/18 04:28 A-a O2 Difference 21.0 mm/Hg 07/11/18 15:46 Hgb O2 Saturation 97.2 % (95.0-98.0) 07/11/18 15:46 Sodium 134.0 mmol/L (132-148) 07/07/18 04:28 Chloride 100.0 mmol/L (98-107) 07/07/18 04:28 Glucose 128 mg/dL (75-110) H 07/07/18 04:28 Lactate 0.8 mmol/L (0.7-2.1) 07/07/18 04:28 Vent Mode Tc 07/07/18 04:28 Mechanical Rate 20 07/05/18 05:43 FiO2 21.0 % 07/11/18 15:46 Tidal Volume 450 07/05/18 05:43 PEEP 5 07/06/18 04:55 Pressure Support 8 07/06/18 04:55 Blood Gas Comments Oom air 07/11/18 15:46 Crit Value Read Back N 07/11/18 15:46 Sodium 142 mmol/l (132-148) 07/25/18 06:15 Potassium 3.5 MMOL/L (3.6-5.0) L 07/25/18 06:15 Chloride 105 mmol/L (98-107) 07/25/18 06:15 Carbon Dioxide 25 mmol/L (22-30) 07/25/18 06:15 Anion Gap 16 (10-20) 07/25/18 06:15 BUN 14 mg/dl (9-20) 07/25/18 06:15 Creatinine 1.6 mg/dl (0.8-1.5) H 07/25/18 06:15 Est GFR ( Amer) 53 07/25/18 06:15 Est GFR (Non-Af Amer) 43 07/25/18 06:15 POC Glucose (mg/dL) 274 mg/dL (65-110) H 07/25/18 11:31 Random Glucose 106 mg/dL (75-110) 07/25/18 06:15 Hemoglobin A1c 6.1 % (4.2-6.5) 06/18/18 05:47 Calcium 9.5 mg/dL (8.4-10.2) 07/25/18 06:15 Phosphorus 2.2 mg/dl (2.5-4.5) L 07/23/18 15:20 Magnesium 1.7 MG/DL (1.6-2.3) 07/23/18 15:20 Iron 13 ug/dL (49-181) L 06/12/18 12:19 TIBC 206 ug/dL (250-450) L 06/12/18 12:19 % Saturation 6 % (20-55) L 06/12/18 12:19 Ferritin 1620.0 ng/Ml (17.9-464) H 07/22/18 05:45 Total Bilirubin 0.6 mg/dl (0.2-1.3) 07/25/18 06:15 AST 19 U/L (17-59) 07/25/18 06:15 ALT 28 U/L (21-72) 07/25/18 06:15 Alkaline Phosphatase 129 U/L (38-126) H 07/25/18 06:15 Ammonia < 9 umo/L (16-60) L 06/12/18 19:55 Lactate Dehydrogenase 1193 U/L (313-618) H 06/20/18 04:30 Total Creatine Kinase 69 U/L (55-170) 06/11/18 22:01 Troponin I 0.0190 ng/mL (0.00-0.120) 06/11/18 22:01 NT-Pro-B Natriuret Pep 421 pg/ml (0-900) 06/11/18 22:01 Total Protein 6.5 G/DL (6.3-8.2) 07/25/18 06:15 Albumin 3.3 g/dL (3.5-5.0) L 07/25/18 06:15 Globulin 3.3 gm/dL (2.2-3.9) 07/25/18 06:15 Albumin/Globulin Ratio 1.0 (1.0-2.1) 07/25/18 06:15 Triglycerides 175 mg/DL (0-149) H 06/12/18 06:40 Cholesterol 175 mg/dL (0-199) 06/12/18 06:40 LDL Cholesterol Direct 78 mg/dL (0-129) 06/12/18 06:40 HDL Cholesterol 31 MG/DL (30-70) 06/12/18 06:40 Vitamin B12 874 pg/mL (239-931) 07/22/18 05:45 Folate 6.4 ng/mL 07/22/18 05:45 RBC Folate 1050 ng/mL RBC (>280) 06/12/18 12:19 Procalcitonin 0.12 NG/ML (0.19-0.49) L 06/22/18 14:35 Thyroxine (T4) 6.17 ug/dl (5.5-11.0) 06/12/18 06:40 TSH 3rd Generation 4.04 mIU/ML (0.46-4.68) 07/04/18 04:50 PTH Intact Whole Molec 19 pg/mL (14-64) 06/12/18 11:35 Cortisol AM Sample 3.7 ug/dL (4.46-22.7) L 07/03/18 04:30 ACTH 33 pg/mL (6-50) 07/04/18 04:50 Arterial Blood Potassium 4.3 mmol/L (3.6-5.2) 07/07/18 04:28 Urine Color Yellow (YELLOW) 06/13/18 05:45 Urine Clarity Cloudy (Clear) 06/13/18 05:45 Urine pH 5.0 (5.0-8.0) 06/13/18 05:45 Ur Specific [place] 1.012 (1.003-1.030) 06/13/18 05:45 Urine Protein 30 mg/dL (NEGATIVE) 06/13/18 05:45 Urine Glucose (UA) Neg mg/dL (NEGATIVE) 06/13/18 05:45 Urine Ketones Negative mg/dL (NEGATIVE) 06/13/18 05:45 Urine Blood Small (NEGATIVE) 06/13/18 05:45 Urine Nitrate Negative (NEGATIVE) 06/13/18 05:45 Urine Bilirubin Negative (NEGATIVE) 06/13/18 05:45 Urine Urobilinogen 0.2-1.0 mg/dL (0.2-1.0) 06/13/18 05:45 Ur Leukocyte Esterase Trace Corry/uL (Negative) 06/13/18 05:45 Urine RBC (Auto) 2 /hpf (0-3) 06/13/18 05:45 Urine Microscopic WBC 10 /hpf (0-5) H 06/13/18 05:45 Ur Squamous Epith Cells 1 /hpf (0-5) 06/13/18 05:45 Urine Bacteria Rare (<OCC) 06/13/18 05:45 Hyaline Casts >20 /hpf (0-2) H 06/13/18 05:45 Ur Random Creatinine 185.5 mg/dL 06/12/18 14:49 U Random Total Protein 22.0 mg/dL (0.0-12.0) H 06/12/18 14:49 Fluid Type Spinal fluid 06/18/18 12:10 CSF Volume 2 mL (0-1) H 06/18/18 12:10 CSF Appearance Clear/colorless (CLEAR) 06/18/18 12:10 CSF WBC 0.0 /mm3 (0.0-5.0) 06/18/18 12:10 CSF RBC 7.0 /mm3 (0.0-0.0) H 06/18/18 12:10 CSF Total Cell Counted TEST NOT PERFORMED 06/18/18 12:10 CSF Neutrophils 0 % (0-0) 06/18/18 12:10 CSF Lymphocytes 0.0 % (0-0) 06/18/18 12:10 CSF Monos/Macrophages 0 % (0-0) 06/18/18 12:10 CSF Comment None 06/18/18 12:10 CSF Glucose 137 mg/dL (40-70) H* 06/18/18 12:45 CSF Total Protein 51.0 mg/dL (12-60) 06/18/18 12:45 CSF IgG/Serum IgG TNP 06/18/18 12:10 CSF VDRL Nonreactive (Nonreactive) 06/18/18 12:10 CSF Cryptococcus Ag Not detected (Not Detected) 06/18/18 12:10 CSF Toxo. gondii IgG <0.90 06/18/18 12:10 CSF [place] IgG Ab <1.30 index (<1.30) 06/18/18 13:00 CSF [place] IgM Ab <0.90 index (<0.90) 06/18/18 13:00 Urine Opiates Screen Negative (NEGATIVE) 06/12/18 03:41 Urine Methadone Screen Negative (NEGATIVE) 06/12/18 03:41 Ur Barbiturates Screen Negative (NEGATIVE) 06/12/18 03:41 Ur Phencyclidine Scrn Negative (NEGATIVE) 06/12/18 03:41 Ur Amphetamines Screen Negative (NEGATIVE) 06/12/18 03:41 U Benzodiazepines Scrn Negative (NEGATIVE) 06/12/18 03:41 U Oth Cocaine Metabols Negative (NEGATIVE) 06/12/18 03:41 U Cannabinoids Screen Negative (NEGATIVE) 06/12/18 03:41 Alcohol, Quantitative < 10 mg/dl (0-10) 06/11/18 22:01 Serum Immunofixation TEST NOT PERFORMED 06/13/18 10:48 Urine Immunofixation TEST NOT PERFORMED 06/13/18 10:18 DINO Screen Negative (Negative) 06/13/18 18:10 RNA Polymerase III IgG <20 Units (<20) 06/12/18 12:19 Absolute Lymphs (Flow) 582 Cells/mcL (850-3900) L 07/05/18 04:50 % CD3 Cells 73 Percent (57-85) 06/12/18 12:19 Absolute CD3 Count 880 Cells/mcL (840-3060) 06/12/18 12:19 % CD4 Cells 8 Percent (30-61) L 07/05/18 04:50 Absolute CD4 Count 45 Cells/mcL (490-1740) L 07/05/18 04:50 T-Help/Suppress Ratio 0.18 Ratio (0.86-5.00) L 07/05/18 04:50 % CD8 Cells 45 Percent (12-42) H 07/05/18 04:50 Absolute CD8 Count 260 Cells/mcL (180-1170) 07/05/18 04:50 T-Lymph Analys Comment See note 07/05/18 04:50 RPR Nonreactive (NONREACTIVE) 06/12/18 19:55 C. difficile Ag & Toxin Negative (NEGATIVE) 06/12/18 16:00 Cryptococcus Ag Negative (NEGATIVE) 06/13/18 18:10 CMV Specimen Source Plasma 06/27/18 14:13 CMV DNA Quant PCR [id number] IU/mL (<200) H 06/27/18 14:13 CMV Qnt PCR log IU/mL 5.01 log IU/mL (<2.30) H 06/27/18 14:13 [place] RNA (RT-PCR) Not detected (Not Detected) 06/18/18 13:00 Hepatitis A IgM Ab Negative (NEGATIVE) 06/14/18 04:35 Hep Bs Antigen Negative (NEGATIVE) 06/14/18 04:35 Hep B Core IgM Ab Negative (NEGATIVE) 06/14/18 04:35 Hepatitis C Antibody Negative (NEGATIVE) 06/14/18 04:35 HSV Source Description Csf 06/18/18 12:10 HSV I DNA PCR Not detected (Not Detected) 06/18/18 12:10 HSV II DNA PCR Not detected (Not Detected) 06/18/18 12:10 HIV-1 Ab Rapid Screen Reactive (NON REAC) H 06/12/18 00:11 HIV-1 RNA Qnt (RT-PCR) 2.46 (Not Detected) H 07/05/18 04:50 H.influenzae Type B Ag Negative (NEGATIVE) 06/18/18 12:10 Ur L.pneumophila Ag Negative (NEGATIVE) 06/13/18 10:18 N.meningitidis ACY/W135 Negative (NEGATIVE) 06/18/18 12:10 N.meningi B/E.coli K1 Ag Negative (NEGATIVE) 06/18/18 12:10 SHYAM Virus Spec Source Plasma 06/19/18 16:23 SHYAM Virus DNA (PCR) <500 copies/mL (<500) 06/19/18 16:23 Group B Strep Antigen Negative (NEGATIVE) 06/18/18 12:10 S. pneumoniae Antigen Negative (NEGATIVE) 06/18/18 12:10 TB Test (QFT) Nil 0.04 IU/mL 06/13/18 18:10 TB Test Mitogen - Nil 0.68 IU/mL 06/13/18 18:10 TB Test Antigen - Nil 0.00 IU/mL 06/13/18 18:10 TB Test TB - Nil <0.00 IU/mL 06/13/18 18:10 TB Test (QFT) Negative (Negative) 06/13/18 18:10 Blood Type B NEGATIVE 07/18/18 08:15 Blood Type Confirm B NEGATIVE 06/13/18 10:42 Antibody Screen Negative 07/18/18 08:15 Crossmatch See Detail 07/18/18 08:15 BBK History Checked Patient has bt 07/18/18 08:15 Discharge Exam - Head Exam Head Exam: ATRAUMATIC Discharge Plan - Follow Up Plan Condition: [facility]: Cytomegalovirus, Acute Kidney Failure (DC), HIV/AIDS (DC), General (DC) Additional Instructions: Trach shiley #8, on 30% fio2. skin breakdown ant. trach stoma. medihoney dressing applied. crisostomo cath inserted on 07/21. poor appetite. fall precaution with periods of restlessness. bed alarm on. accucheck achs. non compliant and refused a.m meds. monitor K and creatinine. oral thrush. Referrals: Chris Edgar MD, PhD [Staff Provider] - Kristopher Ellison MD [Staff Provider] - Jakob Castellanos MD [Staff Provider] -
== END 2018-07-25 12:20 | DRG 4 ==
LOC: H.ER 20:44 → H.ERHOLD 06-12 00:24 → H.TEL 06-12 03:51 → H.ICU/CCU 06-13 18:37 → H.MEDSURG1 07-09 15:25
PROVIDERS: ADMIT Internal Medicine Pulmonary Disease; ATTEND Internal Medicine Pulmonary Disease
PROC: 05HM33Z Insertion of Infusion Device into Right Internal Jugular Vein, Percutaneous Approach (ICD-10-PCS; 2018-06-13)
PROC: B543ZZA Ultrasonography of Right Jugular Veins, Guidance (ICD-10-PCS; 2018-06-13)
PROC: 3E04329 Introduction of Other Anti-infective into Central Vein, Percutaneous Approach (ICD-10-PCS; 2018-06-13)
PROC: 30233N1 Transfusion of Nonautologous Red Blood Cells into Peripheral Vein, Percutaneous Approach (ICD-10-PCS; 2018-06-14)
PROC: 5A1955Z Respiratory Ventilation, Greater than 96 Consecutive Hours (ICD-10-PCS; 2018-06-15)
PROC: 0BH17EZ Insertion of Endotracheal Airway into Trachea, Via Natural or Artificial Opening (ICD-10-PCS; 2018-06-15)
PROC: 009U3ZX Drainage of Spinal Canal, Percutaneous Approach, Diagnostic (ICD-10-PCS; 2018-06-18)
PROC: 0B110F4 Bypass Trachea to Cutaneous with Tracheostomy Device, Open Approach (ICD-10-PCS; principal; 2018-07-03 11:45)
DX: B20 Human immunodeficiency virus [HIV] disease (principal); A41.9 Sepsis, unspecified organism; B59 Pneumocystosis; J96.01 Acute respiratory failure with hypoxia; G92 Toxic encephalopathy; B00.4 Herpesviral encephalitis; R65.21 Severe sepsis with septic shock; B25.8 Other cytomegaloviral diseases; N17.9 Acute kidney failure, unspecified; B37.0 Candidal stomatitis; E87.2 Acidosis; F02.81 Dementia in other diseases classified elsewhere, unspecified severity, with behavioral disturbance; E87.1 Hypo-osmolality and hyponatremia; R64 Cachexia; Z68.1 Body mass index [BMI] 19.9 or less, adult; E87.6 Hypokalemia; E87.5 Hyperkalemia; L89.892 Pressure ulcer of other site, stage 2; D63.8 Anemia in other chronic diseases classified elsewhere; E11.36 Type 2 diabetes mellitus with diabetic cataract; Z78.1 Physical restraint status; D70.9 Neutropenia, unspecified; E86.0 Dehydration; E83.52 Hypercalcemia; E78.5 Hyperlipidemia, unspecified; I10 Essential (primary) hypertension; R13.10 Dysphagia, unspecified; E83.39 Other disorders of phosphorus metabolism; F41.9 Anxiety disorder, unspecified; Z87.01 Personal history of pneumonia (recurrent)